=== PATIENT | male | born 1955 | race Caucasian/White ===

== ENCOUNTER 2016-08-29 15:31 | Inpatient (IN) | payer MEDICARE, OTHER ==
[~2016-08-29] VITALS: Ht 165.1 cm; Wt 126.0 kg
[~2016-08-29 15:31] MED LIST: ASPI81TA11 PO; CALC0.25 PO; DESO0.0560 TOP; ED B10TA OR; FENO160T2 OR; HYDRA25 PO; HYDRO.5%T TOP; LIPI20TA PO; METO50CR PO; MULT-65 PO; NIAC500 OR; OMEP20TA39 PO; OXYC5 PO; PERI8.6T PO; SIME80CH OR; VITA100017 PO; VITA10002 PO; [UNRECOGNIZED DRUG - CODE] OR
[2016-08-29] MEDS ORDERED: SODIUM CHLOR 0.9% 1000 ML INJ 1,000 ML IV SCH ×2 (15:34→19:45)
[2016-08-29 15:35] VITALS: BP 165/76; PULSE 52; RESP 18; TEMP 97.8; O2SAT 96
--- NOTE | 2016-08-29 15:37 | PD ---
HPI Chief Complaint: abdominal pain Time Seen by Provider: 15:37 Travel History International Travel<30 days: No Contact w/Intl Traveler<30days: No Traveled to known affect area: No History of Present Illness HPI 60-year-old male with history of spina bifida, CAD, CABG 2, hypertension, chronic kidney disease, multiple abdominal surgeries with colostomy placement as well as nephrectomy with urinary pouch, right foot amputation, presents to emergency department today for evaluation of decreased output in his colostomy. Patient states in the past he has had similar symptoms and was found to have a small bowel obstruction. Patient states his last bowel movement was yesterday with a very small amount. He has also developed significant abdominal pain. Denies any fever or chills. No chest or tightness. No difficulty breathing. Mild nausea without vomiting. He has no other symptoms to report at this time. PFSH Past Medical History Anemia: Yes Arthritis: Yes Autoimmune Disease: No Cancer: No Cardiac Catheterization: Yes Cardiovascular Problems: Yes High Cholesterol: Yes Chest Pain: Yes Coronary Artery Disease: Yes Diabetes: No Endocrine: No Gastrointestinal Disorders: Yes Genitourinary: Yes ([place] POUCH) Hypertension: Yes Immune Disorder: No Implanted Vascular Access Dvce: Yes Musculoskeletal: Yes (PARAPALEGIC) Neurologic: Yes (PARAPALEGIC) Psychiatric: No Reproductive: No Respiratory: No Renal Failure: Yes (CRI) Thyroid Disease: No Past Surgical History Abdominal Surgery: Yes ([place] POUCH) Appendectomy: Yes Body Medical Devices: VALERIE LEFT FEMUR, BAND AROUND PELVIS AND HIP Cardiac Surgery: Yes (CABG) Cholecystectomy: Yes Coronary Artery Bypass Graft: Yes (DOUBLE BYPASS 2000) Coronary Stent: Yes (1) Genitourinary Surgery: Yes (1991 URINARY DIVERSION, 1988 LEFT NEPHRECTOMY,) Joint Replacement: No Pacemaker: No Tonsillectomy: Yes Other Surgery: Yes (C5-C6 FUSION, C7 DISCECTOMY 10/27/12) Social History Alcohol Use: No Tobacco Use: No Substance Use: No Allergies-Medications (Allergen,Severity, Reaction): Coded Allergies: Compazine (Verified Allergy, Severe, MUSCLE CONTRACTURES, 08/29/16) Contrast Media (Verified Allergy, Severe, Anaphylaxis, 08/29/16) Thorazine (Verified Allergy, Severe, MUSCLE CONTRACTURES, 08/29/16) Reported Meds & Prescriptions Reported Meds & Active Scripts Active Reported Ascorbic Acid 500 Mg Tab 1,000 Mg PO DAILY Aspirin EC (Aspirin) 81 Mg Tabdr 81 Mg PO DAILY Baclofen 10 Mg Tab 10 Mg PO TID Calcitriol 0.25 Mcg Cap 0.25 Mcg PO DAILY Vitamin B-12 (Cyanocobalamin) 1,000 Mcg Tab 1,000 Mcg PO DAILY Hydrocortisone Topical (Hydrocortisone) 0.5% Cream 1 Applic TOPICAL DAILY Apply to face Hydralazine (Hydralazine HCl) 100 Mg Tab 100 Mg PO TID Take with meals Toprol XL (Metoprolol Succinate) 25 Mg Tab 25 Mg PO DAILY Multiple Vitamin 1 Tab 1 Tab PO DAILY Docusate Sodium 100 Mg Cap 100 Mg PO BID PRN Ferrous Sulfate DR (Ferrous Sulfate) 325 Mg Tabdr 325 Mg PO TID Amlodipine (Amlodipine Besylate) 5 Mg Tab 5 Mg PO DAILY Oxycodone (Oxycodone HCl) 20 Mg Tab 20 Mg PO Q4HR PRN Desonide Topical (Desonide) 0.05% Cream 1 Applic TOPICAL HS Review of Systems Except as stated in HPI: all other systems reviewed are Neg Physical Exam Narrative GENERAL: Poorly kempt obese male patient, sitting in bed, in no acute distress. SKIN: Focused skin assessment warm/dry. At this time I'm unable to roll the patient over due to abdominal pain to assess backside of skin. Multiple surgical scars on the abdomen. HEAD: Atraumatic. Normocephalic. EYES: Pupils equal and round. No scleral icterus. No injection or drainage. ENT: No nasal bleeding or discharge. Mucous membranes pink and moist. NECK: Trachea midline. No JVD. CARDIOVASCULAR: Bradycardic rate and rhythm. No murmur appreciated. RESPIRATORY: No accessory muscle use. Diminished due to poor inspiratory effort and abdominal girth. Breath sounds equal bilaterally. GASTROINTESTINAL: Abdomen soft, rotund. Significant tenderness to the left of the umbilicus and left lower quadrant. Mild guarding.. MUSCULOSKELETAL: No obvious deformities. No clubbing. No cyanosis. No edema. Right foot amputation. NEUROLOGICAL: Awake and alert. No obvious cranial nerve deficits. Motor grossly within normal limits. Normal speech. Data Data Last Documented VS Vital Signs Date Time Temp Pulse Resp B/P Pulse Ox O2 Delivery O2 Flow Rate FiO2 08/29/16 15:40 18 08/29/16 15:38 97 Room Air 08/29/16 15:35 97.8 52 165/76 Orders Complete Blood Count With Diff (08/29/16 15:34) Comprehensive Metabolic Panel (08/29/16 15:34) Lipase (08/29/16 15:34) Prothrombin Time / Inr (Pt) (08/29/16 15:34) Act Partial Throm Time (Ptt) (08/29/16 15:34) Urinalysis - C+S If Indicated (08/29/16 15:34) Ct Abd/Pel W/O Iv Contrast (08/29/16 15:34) Iv Access Insert/Monitor (08/29/16 15:34) Ecg Monitoring (08/29/16 15:34) Oximetry (08/29/16 15:34) Ondansetron Inj (Zofran Inj) (08/29/16 15:45) Sodium Chlor 0.9% 1000 Ml Inj (Ns 1000 M (08/29/16 15:34) Sodium Chloride 0.9% Flush (Ns Flush) (08/29/16 15:45) Electrocardiogram (08/29/16 15:34) Abdomen, Upright Only (08/29/16 15:34) Morphine Inj (Morphine Inj) (08/29/16 16:45) Urine Culture (08/29/16 17:17) Hydromorphone Pf Inj (Dilaudid Pf Inj) (08/29/16 18:00) Ceftriaxone Inj (Rocephin Inj) (08/29/16 18:15) Metronidazole 500 Mg Inj (Flagyl 500 Mg (08/29/16 18:15) Sodium Chlor 0.9% 1000 Ml Inj (Ns 1000 M (08/29/16 18:15) Insert Ng Tube (08/29/16 18:15) Labs Laboratory Tests Test 08/29/16 08/29/16 16:08 17:17 White Blood Count 15.8 TH/MM3 Red Blood Count 5.31 MIL/MM3 Hemoglobin 12.9 GM/DL Hematocrit 42.5 % Mean Corpuscular Volume 80.1 FL Mean Corpuscular Hemoglobin 24.2 PG Mean Corpuscular Hemoglobin 30.2 % Concent Red Cell Distribution Width 19.2 % Platelet Count 253 TH/MM3 Mean Platelet Volume 7.9 FL Neutrophils (%) (Auto) 94.3 % Lymphocytes (%) (Auto) 1.5 % Monocytes (%) (Auto) 3.9 % Eosinophils (%) (Auto) 0.1 % Basophils (%) (Auto) 0.2 % Neutrophils # (Auto) 14.9 TH/MM3 Lymphocytes # (Auto) 0.2 TH/MM3 Monocytes # (Auto) 0.6 TH/MM3 Eosinophils # (Auto) 0.0 TH/MM3 Basophils # (Auto) 0.0 TH/MM3 CBC Comment DIFF FINAL Differential Comment Prothrombin Time 11.2 SEC Prothromb Time International 1.0 RATIO Ratio Activated Partial 29.5 SEC Thromboplast Time Sodium Level 143 MEQ/L Potassium Level 3.0 MEQ/L Chloride Level 115 MEQ/L Carbon Dioxide Level 16.2 MEQ/L Anion Gap 12 MEQ/L Blood Urea Nitrogen 60 MG/DL Creatinine 2.73 MG/DL Estimat Glomerular Filtration 24 ML/MIN Rate Random Glucose 189 MG/DL Calcium Level 8.1 MG/DL Total Bilirubin 0.2 MG/DL Aspartate Amino Transf 15 U/L (AST/SGOT) Alanine Aminotransferase 15 U/L (ALT/SGPT) Alkaline Phosphatase 168 U/L Total Protein 7.4 GM/DL Albumin 2.9 GM/DL Lipase 100 U/L Urine Color LIGHT-YELLOW Urine Turbidity HAZY Urine pH 8.0 Urine Specific [place] 1.009 Urine Protein 100 mg/dL Urine Glucose (UA) NEG mg/dL Urine Ketones NEG mg/dL Urine Occult Blood NEG Urine Nitrite NEG Urine Bilirubin NEG Urine Urobilinogen LESS THAN 2.0 MG/DL Urine Leukocyte Esterase LARGE Urine RBC 5 /hpf Urine WBC 20 /hpf Urine Squamous Epithelial <1 /hpf Cells Urine Amorphous Sediment FEW Urine Bacteria MOD /hpf Urine Mucus FEW /lpf Microscopic Urinalysis Comment CULTURE INDICATED MDM Medical Decision Making Medical Screen Exam Complete: Yes Emergency Medical Condition: Yes Medical Record Reviewed: Yes Differential Diagnosis Small bowel obstruction versus perforation versus constipation versus gastroenteritis versus sepsis Narrative Course 60-year-old male presents to emergency department for evaluation of abdominal pain and decreased output in his colostomy. Patient does have abdominal tenderness to palpation. CBC is with leukocytosis of 15.8 and a neutrophilia of 14.9. CMP is with mild hypokalemia 3.0. Creatinine has increased to 2.73 with a BUN of 60, GFR of 24. This is an acute change from patient's most recent lab work here which was in 2015. Urinalysis is hazy with 100 proteinuria , large leukocyte esterase, 5 RBC, 20 WBC, moderate bacteria, few mucus. Culture is indicated. X-ray imaging of the abdomen shows no evidence of free intra-peritoneal gas. CT imaging of the abdomen and pelvis shows evidence of small bowel obstruction with dilated loops of small bowel in the left abdomen with air-fluid levels. Ileostomy, neobladder, hydronephrosis of the right kidney have similar features to prior CT in 2015 however the distention of the neobladder is greater than prior. Induration of the soft tissues posterior to the anus just possible decubitus ulcer. There is a protrusion of bowel in the left lower quadrant suggesting the presence of the stoma or hernia however the patient has colostomy in the slice. I discussed the patient with my attending physician. Patient will be admitted for further evaluation and pain control. [address] Lane, general surgeon on-call. He request KUB in the morning and consult to gen surg with admission to medicine. [address] Parish, resident physician ammonia refrigeration technician. After it was confirmed the pt's PCP is Dr. Barker and not on any other provider's admission list, the pt will be admitted to the resident service Diagnosis Primary Impression: Small bowel obstruction Additional Impressions: Acute kidney injury Leukocytosis Qualified Code: D72.829 - Leukocytosis, unspecified type Decubitus ulcer Qualified Code: L89.159 - Decubitus ulcer of sacral region, unspecified ulcer stage Dehydration UTI (urinary tract infection) Qualified Code: N39.0 - Urinary tract infection without hematuria, site unspecified Admitting Information Admitting Physician Requests: Admit Condition: Stable Malou Doll Aug 29, 2016 15:37
[2016-08-29 15:38] VITALS: O2SAT 97
[2016-08-29] MEDS ORDERED: ONDANSETRON HCL 4 MG/2 ML VIAL IVP ONE (15:45)
[2016-08-29] MEDS ORDERED: MORPHINE SULFATE 4 MG/ML INJ IV PUSH ONE (16:45)
[2016-08-29 16:52] LABS: AUTOMATED NEUTROPHIL # 14.9 TH/MM3 (1.8-7.7); BASOPHIL % 0.2 % (0.0-2.0); EOSINOPHIL % 0.1 % (0.0-4.0); HEMATOCRIT 42.5 % (39.0-51.0); HEMO FLAGS DIFF FINAL; LYMPH % 1.5 % (9.0-44.0); LYMPHOCYTE # 0.2 TH/MM3 (1.0-4.8); MEAN CELL VOLUME 80.1 FL (80.0-100.0); MEAN CORPUSCULAR HEMOGLOBIN 24.2 PG (27.0-34.0); MEAN CORPUSCULAR HGB CONC 30.2 % (32.0-36.0); MONO % 3.9 % (0.0-8.0); NEUT % 94.3 % (16.0-70.0); PLATELET COUNT 253 TH/MM3 (150-450); RED BLOOD COUNT 5.31 MIL/MM3 (4.50-5.90); RED CELL DISTRIBUTION WIDTH 19.2 % (11.6-17.2); WHITE BLOOD COUNT 15.8 TH/MM3 (4.0-11.0)
--- NOTE | 2016-08-29 17:02 | RADRPT ---
EXAM DATE/TIME: 08/29/2016 16:12 [facility] COMPARISON: No previous studies available for comparison. INDICATIONS : Patient complains of abdominal pain and distention. MEDICAL HISTORY : None. SURGICAL HISTORY : None. ENCOUNTER: Initial ACUITY: 4 - 6 days PAIN SCORE: 10/10 LOCATION: Abdomen FINDINGS: A single erect view of the upper abdomen demonstrates no evidence of free intraperitoneal gas. The v isualized lower lungs are clear. Hemoclips are seen in the left midabdomen. CONCLUSION: No evidence of free intraperitoneal gas. Nikita Aguilar MD on August 29, 2016 at 16:59 Board Certified Radiologist. This report was verified electronically.
[2016-08-29 17:07] LABS: APTT (PATIENT) 29.5 SEC (24.3-30.1); PROTHROMBIN TIME - PATIENT 11.2 SEC (9.8-11.6)
[2016-08-29 17:22] LABS: ANION GAP 12 MEQ/L (5-15); AST (GOT) 15 U/L (15-37); BICARBONATE 16.2 MEQ/L (21.0-32.0); BLOOD UREA NITROGEN 60 MG/DL (7-18); CHLORIDE 115 MEQ/L (98-107); GLOMERULAR FILTRATION RATE 24 ML/MIN (>89); SODIUM (NA) 143 MEQ/L (136-145)
[2016-08-29 17:25] LABS: ALKALINE PHOSPHATASE 168 U/L (45-117); ALT (GPT) 15 U/L (12-78); TOTAL BILIRUBIN ADULT 0.2 MG/DL (0.2-1.0)
[2016-08-29 17:48] LABS: BACTERIA, URINE MOD /hpf; BLOOD, URINE NEG (NEG); COMMENT (UR) CULTURE INDICATED; CULTURE IF INDICATED CULTURE INDICATED; GLUCOSE,URINE NEG (NEG); KETONE, URINE NEG (NEG); MUCUS URINE FEW /lpf (OCC); NITRITE,URINE NEG (NEG); SQUAMOUS EPITHELIAL CELL URINE <1 /hpf (0-5); URINE COLOR LIGHT-YELLOW (YELLW/STRAW)
--- NOTE | 2016-08-29 17:49 | RADRPT ---
EXAM DATE/TIME: 08/29/2016 16:20 [facility] COMPARISON: CT ABDOMEN & PELVIS W/O CONTRAST, July 14, 2014, 12:01. INDICATIONS : Abdomen pain. ORAL CONTRAST: No oral contrast ingested. RADIATION DOSE: 33.34 CTDIvol (mGy) MEDICAL HISTORY : Cardiovascular disease. Hypertension. SURGICAL HISTORY : pelvic. femur ENCOUNTER: Initial ACUITY: 1 day PAIN SCALE: 9/10 LOCATION: Bilateral abdomen TECHNIQUE: Volumetric scanning of the abdomen and pelvis was performed. Using automated exposure control and ad justment of the mA and/or kV according to patient size, radiation dose was kept as low as reasonably achievable to obtain optimal diagnostic quality images. FINDINGS: Left nephrectomy. 1.8 cm low density nodule in the medial limb of the left adrenal gland is similar to prior. There is moderate hydronephrosis of the right kidney which is similar in severity to 2015. Cortical cyst is also stable. There is a new 3 mm parenchymal calcification in the midpole the rig ht kidney. No calcifications seen in the collecting system. There is an ileostomy with neobladder i n the right lower quadrant. The neobladder measures up to 12 cm in width. The liver, spleen, and pancreas are unremarkable for noncontrast technique. The abdominal aorta is n ormal diameter. There are multiple abnormal dilated loops of small bowel in the left mid abdomen which measure up to 5.3 cm in dimension and many of the loops contain air fluid levels. In the left lower quadrant anter ior abdominal wall there appears to be either a stoma or spigelian hernia with loops of bowel extendi ng into. The skin adjacent to the protruding loops of bowel is irregular. There is hyperdense mater ial within the sigmoid colon lumen. Anastomosis sutures seen in the upper abdomen. No evidence of f ree fluid in the pelvis. Cystectomy. Bifemoral graft. Multiple inguinal lymph nodes have similar features to prior CT. CONCLUSION: 1. Evidence of small bowel obstruction with dilated loops of small bowel in the left abdomen with air -fluid levels. 2. Ileostomy, neobladder, and hydronephrosis the right kidney have similar features to prior CT in 2015; however, the distention of the neobladder is greater than prior. 3. Induration of the soft tissues posterior to the anus suggests possible decubitus ulcer. 4. There is protrusion of bowel in the left lower quadrant suggesting the presence of a stoma or a h ealing hernia. Please correlate with clinical exam. Nikita Aguilar MD on August 29, 2016 at 17:36 Board Certified Radiologist. This report was verified electronically.
[2016-08-29] MEDS ORDERED: HYDROmorphone HCL PF 1 MG/ML VIAL IV PUSH ONE (18:00)
[2016-08-29] MEDS ORDERED: DESO0.0560 TOPICAL (18:01)
[2016-08-29] MEDS ORDERED: FERR325T2 PO (18:04)
[2016-08-29] MEDS ORDERED: OXYC-396 PO (18:04)
[2016-08-29] MEDS ORDERED: AMLO5TAB2 PO (18:04)
[2016-08-29] MEDS ORDERED: DOCU100C PO (18:08)
[2016-08-29] MEDS ORDERED: MULTTAB67 PO (18:08)
[2016-08-29] MEDS ORDERED: HYDRO.5%T TOPICAL (18:08)
[2016-08-29] MEDS ORDERED: HYDR-3801 PO (18:08)
[2016-08-29] MEDS ORDERED: TOPR25TA PO (18:08)
[2016-08-29] MEDS ORDERED: ASCO500T PO (18:11)
[2016-08-29] MEDS ORDERED: BACL10TA PO (18:11)
[2016-08-29] MEDS ORDERED: CALC0.25 PO (18:11)
[2016-08-29] MEDS ORDERED: VITA10002 PO (18:11)
[2016-08-29] MEDS ORDERED: ASPI81TA11 PO (18:11)
[2016-08-29] MEDS ORDERED: cefTRIAXone INJ 1,000 MG in SODIUM CHLORIDE 0.9% INJ 100 ML IV ONE (18:15)
[2016-08-29] MEDS ORDERED: metroNIDAZOLE 500 MG INJ 100 ML IV ONE (18:15)
[2016-08-29] MEDS ORDERED: SODIUM CHLOR 0.9% 1000 ML INJ 1,000 ML IV ONE (18:15)
--- NOTE | 2016-08-29 18:55 | HHI.HP ---
[facility] Service Family Medicine Primary Care Physician Non-Staff Admission Diagnosis Small bowel obstruction; leukocytosis; UTI Diagnoses: International Travel<30 Days: No Contact w/Intl Traveler<30days: No Known Affected Area: No History of Present Illness Patient is a 60-year-old male with a past medical history of HTN, CAD s/p CABG 2, spina bifida, multiple abdominal surgeries with colostomy placement , left nephrectomy with urinary diversion pouch, right foot amputation, and L1- L2 paraplegia that presents to the [facility] with a chief complaint of abdominal pain and decreased stool output from his colostomy bag. Patient states that this abdominal pain began yesterday in the evening. He describes the pain as sharp, constant nonradiating, 8/10 pain located in his left lower quadrant. Patient states that he had been having normal bowel movements which normally occur about 6 hours after he eats. His last normal bowel movement was yesterday morning. Last night he ate a strawberry smoothie which he vomited this morning. He states that the pain and decreased stool output is very similar to when he had a small bowel obstruction in 2014. He was admitted at the [facility] at that time. Patient denies other symptoms, no fever or chills, no shortness of breath or chest pain. PCP is Dr. Susan Barker in [place]. Review of Systems Constitutional: DENIES: Fever, Chills Eyes: DENIES: Blurred vision, Eye pain, Vision loss Ears, nose, mouth, throat: DENIES: Throat pain, Running Nose, Sinus Pain Respiratory: DENIES: Cough, Shortness of breath Cardiovascular: DENIES: Chest pain, Palpitations Gastrointestinal: COMPLAINS OF: Abdominal pain, Constipation, Nausea, Vomiting , DENIES: Bloody stools Genitourinary: DENIES: Urinary frequency, Urinary incontinence (has a [place] Pouch for urinary diversion) Integumentary: DENIES: Pruritus, Rash Hematologic/lymphatic: DENIES: Bruising Neurologic: COMPLAINS OF: Headache, DENIES: Paresthesias Past Family Social History Past Medical History HTN CAD s/p CABG 2 Spina bifida L1-L2 paraplegia Past Surgical History Multiple abdominal surgeries with colostomy placement Ivan left femur, band around pelvis and hip Double bypass 2000 1991 urinary diversion, 1988 left nephrectomy C5-C6 fusion, C7 discectomy 10/27/12 Cholecystectomy Appendectomy Skin flaps for sacral decubitus ulcers in 2014 Right foot amputation Patient has had 125 surgeries in his lifetime Reported Medications Reported Meds & Active Scripts Active Reported Ascorbic Acid 500 Mg Tab 1,000 Mg PO DAILY Aspirin EC (Aspirin) 81 Mg Tabdr 81 Mg PO DAILY Baclofen 10 Mg Tab 10 Mg PO TID Calcitriol 0.25 Mcg Cap 0.25 Mcg PO DAILY Vitamin B-12 (Cyanocobalamin) 1,000 Mcg Tab 1,000 Mcg PO DAILY Hydrocortisone Topical (Hydrocortisone) 0.5% Cream 1 Applic TOPICAL DAILY Apply to face Hydralazine (Hydralazine HCl) 100 Mg Tab 100 Mg PO TID Take with meals Toprol XL (Metoprolol Succinate) 25 Mg Tab 25 Mg PO DAILY Multiple Vitamin 1 Tab 1 Tab PO DAILY Docusate Sodium 100 Mg Cap 100 Mg PO BID PRN Ferrous Sulfate DR (Ferrous Sulfate) 325 Mg Tabdr 325 Mg PO TID Amlodipine (Amlodipine Besylate) 5 Mg Tab 5 Mg PO DAILY Oxycodone (Oxycodone HCl) 20 Mg Tab 20 Mg PO Q4HR PRN Desonide Topical (Desonide) 0.05% Cream 1 Applic TOPICAL HS Allergies: Coded Allergies: Compazine (Verified Allergy, Severe, MUSCLE CONTRACTURES, 08/29/16) Contrast Media (Verified Allergy, Severe, Anaphylaxis, 08/29/16) Thorazine (Verified Allergy, Severe, MUSCLE CONTRACTURES, 08/29/16) Family History Noncontributory Social History Patient denies alcohol, tobacco, or illegal drug use Lives alone in [place], no pets Physical Exam Vital Signs Vital Signs Date Time Temp Pulse Resp B/P Pulse Ox O2 Delivery O2 Flow Rate FiO2 08/29/16 15:40 18 08/29/16 15:38 97 Room Air 08/29/16 15:35 97.8 52 18 165/76 96 Physical Exam GENERAL: This is an obese patient, in no acute respiratory distress but appears very uncomfortable and occasionally grimaces with pain. SKIN: Seborrheic dermatitis on frontal scalp. Cool and dry. Chronic venous stasis changes most notable on RLE. 1 cm healing ulcer on right lateral thigh. Malodorous nonhealing left heel ulcer. No sacral ulcers identified HEAD: Atraumatic. Normocephalic. No temporal or scalp tenderness. EYES: Pupils equal round and reactive. Extraocular motions intact. No scleral icterus. No injection or drainage. ENT: Nose without bleeding, purulent drainage or septal hematoma. Throat without erythema, tonsillar hypertrophy or exudate. Moist mucous membranes. Uvula midline. Airway patent. NECK: Trachea midline. No JVD or lymphadenopathy. Supple, nontender, no meningeal signs. CARDIOVASCULAR: Bradycardic rate and rhythm without murmurs, gallops, or rubs. RESPIRATORY: No increased work of breathing. Breath sounds equal bilaterally. Scattered inspiratory wheezes, rales, or rhonchi. GASTROINTESTINAL: Abdomen soft, tender to mild palpation in the left lower quadrant. Absent to very hypoactive bowel sounds. Colostomy bag in place. No redness of skin around colostomy bag. About 3 hard stools identified inside colostomy bag. Nondistended. No hepato-splenomegaly, or palpable masses. No guarding. MUSCULOSKELETAL: No movement or sensation in bilateral lower extremities. Right BKA. 2+ dorsalis pedis pulse on left lower extremity. Left fifth toe amputation. NEUROLOGICAL: Awake and alert. Cranial nerves II through XII intact. Five out of 5 muscle strength in lateral upper extremities. Normal speech. Laboratory Laboratory Tests Test 08/29/16 08/29/16 16:08 17:17 White Blood Count 15.8 Red Blood Count 5.31 Hemoglobin 12.9 Hematocrit 42.5 Mean Corpuscular Volume 80.1 Mean Corpuscular Hemoglobin 24.2 Mean Corpuscular Hemoglobin 30.2 Concent Red Cell Distribution Width 19.2 Platelet Count 253 Mean Platelet Volume 7.9 Neutrophils (%) (Auto) 94.3 Lymphocytes (%) (Auto) 1.5 Monocytes (%) (Auto) 3.9 Eosinophils (%) (Auto) 0.1 Basophils (%) (Auto) 0.2 Neutrophils # (Auto) 14.9 Lymphocytes # (Auto) 0.2 Monocytes # (Auto) 0.6 Eosinophils # (Auto) 0.0 Basophils # (Auto) 0.0 CBC Comment DIFF FINAL Differential Comment Prothrombin Time 11.2 Prothromb Time International 1.0 Ratio Activated Partial 29.5 Thromboplast Time Sodium Level 143 Potassium Level 3.0 Chloride Level 115 Carbon Dioxide Level 16.2 Anion Gap 12 Blood Urea Nitrogen 60 Creatinine 2.73 Estimat Glomerular Filtration 24 Rate Random Glucose 189 Calcium Level 8.1 Total Bilirubin 0.2 Aspartate Amino Transf 15 (AST/SGOT) Alanine Aminotransferase 15 (ALT/SGPT) Alkaline Phosphatase 168 Total Protein 7.4 Albumin 2.9 Lipase 100 Urine Color LIGHT-YELLOW Urine Turbidity HAZY Urine pH 8.0 Urine Specific [place] 1.009 Urine Protein 100 Urine Glucose (UA) NEG Urine Ketones NEG Urine Occult Blood NEG Urine Nitrite NEG Urine Bilirubin NEG Urine Urobilinogen LESS THAN 2.0 Urine Leukocyte Esterase LARGE Urine RBC 5 Urine WBC 20 Urine Squamous Epithelial <1 Cells Urine Amorphous Sediment FEW Urine Bacteria MOD Urine Mucus FEW Microscopic Urinalysis Comment CULTURE INDICATED Date/Time Procedure Status Source Growth 08/29/16 17:17 Urine Culture Received Urine Clean Catch Pending Result Diagram: 08/29/16 1608 08/29/16 1608 Imaging Last Impressions Abdomen/Pelvis CT 08/29/16 1534 Signed Impressions: Service Date/Time: Monday, August 29, 2016 16:20 - CONCLUSION: 1. Evidence of small bowel obstruction with dilated loops of small bowel in the left abdomen with air-fluid levels. 2. Ileostomy, neobladder, and hydronephrosis the right kidney have similar features to prior CT in 2014; however, the distention of the neobladder is greater than prior. 3. Induration of the soft tissues posterior to the anus suggests possible decubitus ulcer. 4. There is protrusion of bowel in the left lower quadrant suggesting the presence of a stoma or a healing hernia. Please correlate with clinical exam. Nikita Aguilar MD Abdomen X-Ray 08/29/161533 Signed Impressions: Service Date/Time: Monday, August 29, 2016 16:12 - CONCLUSION: No evidence of free intraperitoneal gas. Nikita Aguilar MD Assessment and Plan Assessment and Plan 60-year-old male with a past medical history of HTN, CAD s/p CABG 2, spina bifida, multiple abdominal surgeries with colostomy placement, left nephrectomy with urinary diversion pouch, right foot amputation, and L1-L2 paraplegia presents with 1 day history of abdominal pain, nausea and vomiting that is concerning for small bowel obstruction confirmed on CT of abdomen and pelvis. There is also suspicion for a urinary tract infection based on findings on urinalysis and CT which showed distention of the neobladder that is greater than prior CT in 2014 with the patient will be admitted for management of small bowel obstruction and IV antibiotics for possible UTI. Code Status Full code Discussed Condition With Discussed with Dr. De La Rosa. Will discuss with Dr. Ac Problem List: (1) Small bowel obstruction Status: Acute Plan: -Evidence of SBO with dilated loops of small bowel in the left abdomen with air-fluid levels on CT abdomen and pelvis -Gen. surgery consulted -Nothing by mouth -NG tube in place -KUB in the a.m. -Received one dose of Flagyl 500 mg IV in the ED - will hold off on IV antibiotics for now -Normal saline at 175 mL hour with 40 of K -Morphine 4 mg IV every 4 hours pain 1 through 10 -Dilaudid 1 mg IV every 4 hours when necessary breakthrough pain -Zofran 4mg IV every 6 hours when necessary nausea -Tylenol suppository 650 mg rectal every 4 hours when necessary fever (2) Dehydration Status: Acute Plan: -Patient reports decrease stool outputs with vomiting in the a.m. -Potassium decreased to 3.0 -Received 1 L normal saline bolus in the ED -Continue 1-1/2 maintenance fluids as above -We will monitor and replace electrolytes as needed (3) Acute on chronic kidney failure Status: Acute Plan: -Creatinine 2.73 in the ED -Baseline creatinine 1.84 in June 2014 -Appears to be ACUTE on chronic CKD stage III with GFR of 24 -Fluids as above -We will monitor and consider nephrology consult if does not improve (4) UTI (urinary tract infection) Status: Acute Plan: -UA significant for large leukocyte esterase, 5 RBC, 20 WBC, moderate bacteria -Leukocytosis to 15.8 -Possible colonization due to bladder pouch and and urinary catheter use -Patient received one dose of Rocephin 1 g IV in the ED -We will continue Rocephin 1 g IV during admission -Urine culture pending - we'll adjust antibiotic regimen as needed (5) Decubitus ulcer Status: Chronic Plan: -Presence of decubitus ulcer on right lateral thigh and left heel -Wound care consulted for management - appreciate recommendations (6) Chronic Medical Problems Status: Acute Plan: Hypertension: Holding amlodipine 5 mg by mouth daily and hydralazine 100 mg by mouth 3 times a day CAD: Holding aspirin 81 mg by mouth daily Chronic pain: Holding oxycodone 20 mg by mouth every 4 hours when necessary, morphine and Dilaudid when necessary as above Muscle spasms: Holding baclofen 10 mg by mouth 3 times a day Anemia: Holding ferrous sulfate PO (7) FEN/DVT PPX/GI PPX/Nursing Orders Status: Acute Plan: Fluids: NS @ 175 mls/hr IV +40K Electrolytes: Will monitor and replace as needed Nutrition: NPO DVT Prophylaxis: Heparin subcutaneous Q8h GI Prophylaxis: Protonix 40mg IV daily -Vitals Q4h -Monitor I's and O's -Activity bed rest Disposition: Pending resolution of SBO, possibly the next 2-3 days Physician Certification 2 Midnight Certification Type: Admission for Inpatient Services Order for Inpatient Services The services are ordered in accordance with Medicare regulations or non- Medicare payer requirements, as applicable. In the case of services not specified as inpatient-only, they are appropriately provided as inpatient services in accordance with the 2-midnight benchmark. Estimated LOS (days): 3 days is the estimated time the patient will need to remain in the hospital, assuming treatment plan goals are met and no additional complications. Post-Hospital Plan: Home Problem Qualifiers (1) UTI (urinary tract infection): Qualified Code: N39.0 - Urinary tract infection without hematuria, site unspecified (2) Decubitus ulcer: Qualified Code: L89.159 - Decubitus ulcer of sacral region, unspecified ulcer stage Eko,Stephani Vickers MD R1 Aug 29, 2016 18:55
[2016-08-29] MEDS ORDERED: ACETAMINOPHEN 650 MG SUPP RECTAL PRN (19:30)
[2016-08-29] MEDS ORDERED: MORPHINE SULFATE 4 MG/ML INJ IV PRN (19:30)
[2016-08-29 20:14] VITALS: BP 160/70; PULSE 5; PULSE 55; RESP 16; O2SAT 99
[2016-08-29] MEDS: NS + KCL 40 MEQ INJ 1,000 ML IV SCH (20:25)
[2016-08-29] MEDS: HEPARIN SODIUM - SQ 10,000 UNITS/ML VIAL SQ SCH (20:25)
[2016-08-29] MEDS: HYDROmorphone HCL PF 1 MG/ML VIAL IV PRN (20:26)
[2016-08-29 20:58] LABS: MAGNESIUM 2.3 MG/DL (1.5-2.5)
[2016-08-29] MEDS: FLUOCINOLONE ACETONIDE 0.01% CR 15 GM TUBE TOPICAL SCH (21:00)
[2016-08-29 21:06] VITALS: BP 158/66; PULSE 57; RESP 14; O2SAT 100
[2016-08-29] MEDS ORDERED: RESP: ALBUTEROL 2.5 MG/3 ML NEB (PRN) NEB (21:15)
[2016-08-29] MEDS: MORPHINE SULFATE 4 MG/ML INJ IV PRN (22:20)
[2016-08-29 22:30] VITALS: BP 176/84; PULSE 60; RESP 20; TEMP 97.7; O2SAT 96
[2016-08-29 22:30] LABS: LACTIC ACID GHOST NOT REPORTABLE
[2016-08-29] MEDS: ONDANSETRON HCL 4 MG/2 ML VIAL IV PRN (22:31)
[2016-08-30] MEDS: HYDROmorphone HCL PF 1 MG/ML VIAL IV PRN ×3 (00:42→10:42)
[2016-08-30] MEDS: MORPHINE SULFATE 4 MG/ML INJ IV PRN ×4 (02:54→18:42)
[2016-08-30 03:21] LABS: AUTOMATED NEUTROPHIL # 16.4 TH/MM3 (1.8-7.7); BASOPHIL % 0.1 % (0.0-2.0); EOSINOPHIL % 0.1 % (0.0-4.0); HEMATOCRIT 39.8 % (39.0-51.0); LYMPH % 2.2 % (9.0-44.0); LYMPHOCYTE # 0.4 TH/MM3 (1.0-4.8); MEAN CELL VOLUME 78.4 FL (80.0-100.0); MEAN CORPUSCULAR HEMOGLOBIN 24.8 PG (27.0-34.0); MEAN CORPUSCULAR HGB CONC 31.6 % (32.0-36.0); MONO % 4.7 % (0.0-8.0); NEUT % 92.9 % (16.0-70.0); PLATELET COUNT 268 TH/MM3 (150-450); RED BLOOD COUNT 5.08 MIL/MM3 (4.50-5.90); RED CELL DISTRIBUTION WIDTH 18.7 % (11.6-17.2); WHITE BLOOD COUNT 17.7 TH/MM3 (4.0-11.0)
[2016-08-30 03:23] LABS: HEMO FLAGS AUTO DIFF
[2016-08-30 03:51] LABS: BANDS 28 % (0-6); NEUTROPHIL # MANUAL DIFF 16.3 TH/MM3 (1.8-7.7); POLYS (SEG NEUTROPHILS) 64 % (16-70); WBC DIFF SAMPLE 100
[2016-08-30 03:53] LABS: PLATELET ESTIMATE SMEAR NORMAL (NORMAL); PLATELET MORPHOLOGY NORMAL (NORMAL); SCAN/DIFF FINAL DIFF MANUAL
[2016-08-30 04:08] LABS: BICARBONATE 17.9 MEQ/L (21.0-32.0)
[2016-08-30] MEDS: NS + KCL 40 MEQ INJ 1,000 ML IV SCH ×2 (05:09→07:56)
[2016-08-30] MEDS: HEPARIN SODIUM - SQ 10,000 UNITS/ML VIAL SQ SCH ×3 (05:10→21:31)
--- NOTE | 2016-08-30 05:44 | RADRPT ---
EXAM DATE/TIME: 08/30/2016 05:06 [facility] COMPARISON: CT ABDOMEN & PELVIS W/O CONTRAST, August 29, 2016, 16:20. ABDOMEN UPRIGHT ONLY, August 29, 2016, 16:12. INDICATIONS : Evaluate for obstruction. MEDICAL HISTORY : Cardiovascular disease. Hypertension SURGICAL HISTORY : colostomy, pelvic, femur ENCOUNTER: Subsequent ACUITY: 2 days PAIN SCORE: 7/10 LOCATION: Bilateral abdomen FINDINGS: There are a few loops of small bowel slightly prominent on the left side. Maximum diameter measures a lmost 4.4 cm. No definite free air is identified for technique. NG tube is present with tip in the st omach. CONCLUSION: Slightly prominent loops of small bowel on the left side without evidence for free intraperitoneal ai r somewhat nonspecific for technique, however partial small bowel obstruction is not excluded. Deborah Dean MD on August 30, 2016 at 5:40 Board Certified Radiologist. This report was verified electronically.
[2016-08-30] MEDS: ONDANSETRON HCL 4 MG/2 ML VIAL IV PRN ×3 (05:46→18:41)
[2016-08-30 07:44] VITALS: BP 151/71; PULSE 67; RESP 18; TEMP 96.9; O2SAT 95
[2016-08-30] MEDS: PANTOPRAZOLE SODIUM 40 MG VIAL IVP SCH (07:56)
[2016-08-30] MEDS: HYDROCORTISONE 0.5% CREAM 30 GM TOPICAL SCH (07:58)
[2016-08-30 09:56] LABS: HEMOGLOBIN A1a 1.4 %; HEMOGLOBIN A1b 2.2 %; HEMOGLOBIN Ao 82.2 %; HEMOGLOBIN LA1C 3.7 %; HEMOGLOBIN P3 6.4 %
[2016-08-30] MEDS: SODIUM CHLOR 0.9% 1000 ML INJ 1,000 ML IV SCH ×3 (11:36→21:32)
--- NOTE | 2016-08-30 11:37 | HHI.FPPN ---
Subjective Remarks Patient was sitting up in bed, still appeared uncomfortable. Pain is now 7-10, he states it mildly improved compared to yesterday. He feels very thirsty and would like something to drink. He is okay with not eating yet. Patient in agreement with keeping the NG tube in for possibly 1 more day (Stephani Parish MD R1) Objective Vitals Vital Signs Date Time Temp Pulse Resp B/P Pulse Ox O2 Delivery O2 Flow Rate FiO2 08/30/16 07:44 96.9 67 18 151/71 95 08/29/16 22:30 97.7 60 20 176/84 96 08/29/16 21:06 57 14 158/66 100 Room Air 08/29/16 20:14 55 16 160/70 99 Room Air 08/29/16 15:40 18 08/29/16 15:38 97 Room Air 08/29/16 15:35 97.8 52 18 165/76 96 I/O 08/29/16 08/29/16 08/29/16 08/30/16 08/30/16 08/30/16 07:00 15:00 23:00 07:00 15:00 23:00 Intake Total 500 ml 1200 ml 0 ml Output Total 1225 ml 2450 ml Balance -725 ml -1250 ml 0 ml Intake Oral 0 ml 0 ml 0 ml IV Total 500 ml 1200 ml Output Urine Total 1225 ml 1650 ml Gastric Drainage Total 800 ml # Bowel Movements 0 0 (Stephani Parish MD R1) Result Diagram: 08/30/16 0259 08/30/16 0259 Imaging Last Impressions Abdomen X-Ray 08/30/16 0600 Signed Impressions: Service Date/Time: Tuesday, August 30, 2016 05:06 - CONCLUSION: Slightly prominent loops of small bowel on the left side without evidence for free intraperitoneal air somewhat nonspecific for technique, however partial small bowel obstruction is not excluded. Deborah Dean MD Abdomen/Pelvis CT 08/29/16 1534 Signed Impressions: Service Date/Time: Monday, August 29, 2016 16:20 - CONCLUSION: 1. Evidence of small bowel obstruction with dilated loops of small bowel in the left abdomen with air-fluid levels. 2. Ileostomy, neobladder, and hydronephrosis the right kidney have similar features to prior CT in 2014; however, the distention of the neobladder is greater than prior. 3. Induration of the soft tissues posterior to the anus suggests possible decubitus ulcer. 4. There is protrusion of bowel in the left lower quadrant suggesting the presence of a stoma or a healing hernia. Please correlate with clinical exam. Nikita Aguilar MD Objective Remarks GENERAL: This is an obese patient, in no acute respiratory distress but appears very uncomfortable and occasionally grimaces with pain. SKIN: Seborrheic dermatitis on frontal scalp. Cool and dry. Chronic venous stasis changes most notable on RLE. 1 cm healing ulcer on right lateral thigh. Malodorous nonhealing left heel ulcer. HEAD: Atraumatic. Normocephalic. No temporal or scalp tenderness. EYES: Pupils equal round and reactive. Extraocular motions intact. No scleral icterus. No injection or drainage. ENT: Nose without bleeding, purulent drainage or septal hematoma. Throat without erythema, tonsillar hypertrophy or exudate. Moist mucous membranes. Uvula midline. Airway patent. NECK: Trachea midline. No JVD or lymphadenopathy. Supple, nontender, no meningeal signs. CARDIOVASCULAR: Bradycardic rate and rhythm without murmurs, gallops, or rubs. RESPIRATORY: No increased work of breathing. Breath sounds equal bilaterally. Scattered inspiratory wheezes, rales, or rhonchi. GASTROINTESTINAL: Abdomen soft, tender to mild palpation in the left lower quadrant. Bowel sounds improved from previous day but still hypoactive. Colostomy bag in place. No redness of skin around colostomy bag. Nondistended. No hepato-splenomegaly, or palpable masses. No guarding. MUSCULOSKELETAL: No movement or sensation in bilateral lower extremities. Right BKA. Left fifth toe amputation. NEUROLOGICAL: Awake and alert. Cranial nerves II through XII intact. Five out of 5 muscle strength in lateral upper extremities. Normal speech. (Eko,Stephani U R1) A/P Assessment and Plan 60-year-old male with a past medical history of HTN, CAD s/p CABG 2, spina bifida, multiple abdominal surgeries with colostomy placement, left nephrectomy with urinary diversion pouch, right foot amputation, and L1-L2 paraplegia presented with 1 day history of abdominal pain, nausea and vomiting that is concerning for small bowel obstruction confirmed on CT of abdomen and pelvis. The patient was admitted for management of small bowel obstruction. He received 1 dose of Rocephin IV for a possible UTI which was discontinued based on urine culture growing mixed cindy. Discharge Planning Pending improvement of small bowel obstruction, possibly in the next 2-3 days ( Stephani Parish MD R1) Attending Attestation Patient seen and examined. Case reviewed and discussed with the resident team. Agree with plan of care as discussed with me and documented in the resident note. (Tami Ac MD) Problem List: (1) Small bowel obstruction Status: Acute Plan: -Evidence of SBO with dilated loops of small bowel in the left abdomen with air-fluid levels on CT abdomen and pelvis -Gen. surgery consulted - appreciate recommendations -Nothing by mouth except ice chips and certain medications -NG tube in place - drained 800 mL on 08/29 and 550 mL at time of exam today 08/30 -KUB shows slightly prominent loops of small bowel in the left side without evidence for free intraperitoneal air -Normal saline at 150 mL hour -Morphine 4 mg IV every 4 hours pain 1 through 10 -Dilaudid 1 mg IV every 4 hours when necessary breakthrough pain -Added oxycodone 20 mg by mouth every 4 hours as needed for pain -Zofran 4mg IV every 6 hours when necessary nausea -Tylenol suppository 650 mg rectal every 4 hours when necessary fever (2) Dehydration Status: Acute Plan: -Potassium improved to 4.0 compared to 3.0 yesterday -Continue maintenance fluids without potassium as above -Continue to monitor and replace electrolytes as needed (3) Acute on chronic kidney failure Status: Acute Plan: -Creatinine 2.73 in the ED, improved to 2.30 today -Baseline creatinine 1.84 in June 2014 -Appears to be acute on chronic CKD stage III with GFR of 29 -Fluids as above -We will monitor and consider nephrology consult if does not improve (4) UTI (urinary tract infection) Status: Acute Plan: -UA significant for large leukocyte esterase, 5 RBC, 20 WBC, moderate bacteria -Leukocytosis to increase to 17.7 compared to 15.8 yesterday - suspect related to his SBO, no signs of peritonitis on exam -We will reevaluate patient's clinical status in the a.m. and consider Flagyl as needed -Most likely colonization due to bladder pouch and and urinary catheter use -Patient received one dose of Rocephin 1 g IV in the ED -Urine culture shows 50-100,000 CFU per mL and final report - will discontinue Rocephin IV (5) Decubitus ulcer Status: Chronic Plan: -Presence of decubitus ulcer on right lateral thigh and left heel -Wound care consulted for management - appreciate recommendations (6) Chronic Medical Problems Status: Acute Plan: Hypertension: Holding amlodipine 5 mg by mouth daily and hydralazine 100 mg by mouth 3 times a day CAD: Holding aspirin 81 mg by mouth daily Chronic pain: Continue oxycodone 20 mg by mouth every 4 hours when necessary, morphine and Dilaudid when necessary as above Muscle spasms: Holding baclofen 10 mg by mouth 3 times a day Anemia: Holding ferrous sulfate PO (7) FEN/DVT PPX/GI PPX/Nursing Orders Status: Acute Plan: Fluids: NS @150 mL/hr Electrolytes: Will monitor and replace as needed Nutrition: NPO except certain medications and ice chips DVT Prophylaxis: Heparin subcutaneous Q8h GI Prophylaxis: Protonix 40mg IV daily -Vitals Q4h -Monitor I's and O's -Activity bed rest Case management consulted to assist with disposition needs (Stephani Parish MD R1) Problem Qualifiers (1) UTI (urinary tract infection): Qualified Code: N39.0 - Urinary tract infection without hematuria, site unspecified (2) Decubitus ulcer: Qualified Code: L89.159 - Decubitus ulcer of sacral region, unspecified ulcer stage Stephani Parish MD R1 Aug 30, 2016 11:37 Tami Ac MD Aug 30, 2016 15:21
[2016-08-30 12:00] VITALS: BP 166/77; PULSE 70; RESP 17; TEMP 96.9; O2SAT 95
--- NOTE | 2016-08-30 12:41 | HHI.FPPN ---
Subjective Remarks Patient seen and examined and discussed with the medicine team. This is a 60-year-old male with complicated history of spina bifida, hypertension, coronary artery disease with history of CABG 2, colostomy, nephrectomy, urinary diversion and L1-L2 paraplegia. He had small bowel obstruction in 2014, and is admitted with similar symptoms of left lower quadrant pain which is sharp, normally has a BM 6 hours after his meal but was stooling less, vomited times one on the day of admission but had no fever or chills. As noted, he's had a previous similar problem. His primary care physician is in [facility]. He has history of having had 125 surgical procedures including a skin flap for sacral decubitus, right BKA and currently notes that he has a ulcer left heel. He does not use tobacco, alcohol or marijuana. He is on multiple medications as in the record. Please see history and physical examination for this admission for additional past, family, social history and review of systems at the time of admission. This morning, he says his pain is down to 7/10 from 8/10 yesterday. He would like ice chips, and would like to keep his NG tube rather than having it removed and replaced. He still complains of tenderness in his abdomen, and while his lower extremities are not painful there is concern for his left heel ulcer which she has been caring for at home. He's not having any chest pain this morning. [place] feverish overnight but no elevated temperature was documented. Objective Vitals Vital Signs Date Time Temp Pulse Resp B/P Pulse Ox O2 Delivery O2 Flow Rate FiO2 08/30/16 07:44 96.9 67 18 151/71 95 08/29/16 22:30 97.7 60 20 176/84 96 08/29/16 21:06 57 14 158/66 100 Room Air 08/29/16 20:14 55 16 160/70 99 Room Air 08/29/16 15:40 18 08/29/16 15:38 97 Room Air 08/29/16 15:35 97.8 52 18 165/76 96 I/O 08/29/16 08/29/16 08/29/16 08/30/16 08/30/16 08/30/16 07:00 15:00 23:00 07:00 15:00 23:00 Intake Total 500 ml 1200 ml 0 ml Output Total 1225 ml 2450 ml Balance -725 ml -1250 ml 0 ml Intake Oral 0 ml 0 ml 0 ml IV Total 500 ml 1200 ml Output Urine Total 1225 ml 1650 ml Gastric Drainage Total 800 ml # Bowel Movements 0 0 Result Diagram: 08/30/16 0259 08/30/16 0259 Other Results Laboratory Tests Test 08/29/16 08/29/16 08/29/16 08/30/16 16:08 17:17 20:12 02:59 White Blood Count 15.8 TH/MM3 17.7 TH/MM3 Hemoglobin 12.9 GM/DL 12.6 GM/DL Mean Corpuscular Hemoglobin 24.2 PG 24.8 PG Mean Corpuscular Hemoglobin 30.2 % 31.6 % Concent Red Cell Distribution Width 19.2 % 18.7 % Neutrophils (%) (Auto) 94.3 % 92.9 % Lymphocytes (%) (Auto) 1.5 % 2.2 % Neutrophils # (Auto) 14.9 TH/MM3 16.4 TH/MM3 Lymphocytes # (Auto) 0.2 TH/MM3 0.4 TH/MM3 Potassium Level 3.0 MEQ/L Chloride Level 115 MEQ/L 122 MEQ/L Carbon Dioxide Level 16.2 MEQ/L 17.9 MEQ/L Blood Urea Nitrogen 60 MG/DL 51 MG/DL Creatinine 2.73 MG/DL 2.30 MG/DL Estimat Glomerular Filtration 24 ML/MIN 29 ML/MIN Rate Random Glucose 189 MG/DL 115 MG/DL Calcium Level 8.1 MG/DL 8.2 MG/DL Alkaline Phosphatase 168 U/L Albumin 2.9 GM/DL Urine Turbidity HAZY Urine Protein 100 mg/dL Urine Leukocyte Esterase LARGE Urine RBC 5 /hpf Urine WBC 20 /hpf Urine Bacteria MOD /hpf Urine Mucus FEW /lpf Lactic Acid Level 2.2 mmol/L Mean Corpuscular Volume 78.4 FL Band Neutrophils % 28 % Lymphocytes % 2 % Neutrophils # (Manual) 16.3 TH/MM3 Sodium Level 149 MEQ/L Microbiology Date/Time Procedure Status Source Growth 08/30/16 01:01 Aerobic Blood Culture Received Blood Peripheral Pending 08/30/16 01:01 Anaerobic Blood Culture Received Blood Peripheral Pending 08/29/16 17:17 Urine Culture - Final Complete Urine Clean Catch 50-100,000 CFU/ML MIXED CINDY... Imaging Last Impressions Abdomen X-Ray 08/30/16 0600 Signed Impressions: Service Date/Time: Tuesday, August 30, 2016 05:06 - CONCLUSION: Slightly prominent loops of small bowel on the left side without evidence for free intraperitoneal air somewhat nonspecific for technique, however partial small bowel obstruction is not excluded. Deborah Dean MD Abdomen/Pelvis CT 08/29/16 1534 Signed Impressions: Service Date/Time: Monday, August 29, 2016 16:20 - CONCLUSION: 1. Evidence of small bowel obstruction with dilated loops of small bowel in the left abdomen with air-fluid levels. 2. Ileostomy, neobladder, and hydronephrosis the right kidney have similar features to prior CT in 2015; however, the distention of the neobladder is greater than prior. 3. Induration of the soft tissues posterior to the anus suggests possible decubitus ulcer. 4. There is protrusion of bowel in the left lower quadrant suggesting the presence of a stoma or a healing hernia. Please correlate with clinical exam. Nikita Aguilar MD Objective Remarks O. CONSTITUTIONAL/GEN: Obese, lying in bed with an NG tube, grunting with discomfort EYES: conjunctiva normal, PERRLA, EOMI. ENT: Lips are dry NECK: Supple LUNGS: clear anteriorly, respiratory effort is normal. CARDIOVASCULAR: RR without murmur or gallop. GI/ABD: Occasional bowel sounds, obese abdomen, I don't elicit tenderness to palpation NEURO: No focal deficits. SKIN: Multiple scars from previous procedures, skin of his lower extremities is dry and scaly, open draining malodorous ulcer left heel HEME/LYMPH: no bruising, petechia or significant adenopathy MUSC: Right BKA stump well-healed. Ulcer left heel. PSYCH/MENTAL STATUS: Alert and oriented x 3. A/P Assessment and Plan 60-year-old male with a past medical history of HTN, CAD s/p CABG 2, spina bifida, multiple abdominal surgeries with colostomy placement, left nephrectomy with urinary diversion pouch, right foot amputation, and L1-L2 paraplegia presents with 1 day history of abdominal pain, nausea and vomiting that is concerning for small bowel obstruction confirmed on CT of abdomen and pelvis. There is also suspicion for a urinary tract infection based on findings on urinalysis and CT which showed distention of the neobladder that is greater than prior CT in 2015 with the patient will be admitted for management of small bowel obstruction and IV antibiotics for possible UTI (patient likely colonized) . Attending Attestation Patient seen and examined. Case reviewed and discussed with the resident team. Agree with plan of care as discussed with me and documented in the resident note. Problem List: (1) Small bowel obstruction Status: Acute Plan: -Evidence of SBO with dilated loops of small bowel in the left abdomen with air-fluid levels on CT abdomen and pelvis -Gen. surgery consulted -Nothing by mouth except ice chips -NG tube in place -KUB in the a.m. -Received one dose of Flagyl 500 mg IV in the ED - will hold off on IV antibiotics for now -Normal saline at 175 mL hour with 40 of K -Morphine 4 mg IV every 4 hours pain 1 through 10 -Dilaudid 1 mg IV every 4 hours when necessary breakthrough pain -Zofran 4mg IV every 6 hours when necessary nausea -Tylenol suppository 650 mg rectal every 4 hours when necessary fever (2) Dehydration Status: Acute Plan: -Patient reports decrease stool outputs with vomiting yesterday a.m. -Potassium decreased to 3.0; repleted IV -Received 1 L normal saline bolus in the ED -Continue 1-1/2 maintenance fluids as above -We will monitor and replace electrolytes as needed (3) Acute on chronic kidney failure Status: Acute Plan: -Creatinine 2.73 in the ED, repeat 2.3 -Baseline creatinine 1.84 in June 2014 -Appears to be ACUTE on chronic CKD stage III with GFR of 24 -Fluids as above -We will monitor and consider nephrology consult if does not improve (4) UTI (urinary tract infection) Status: Acute Plan: -UA significant for large leukocyte esterase, 5 RBC, 20 WBC, moderate bacteria -Leukocytosis to 15.8 -Possible colonization due to bladder pouch and and urinary catheter use -Patient received one dose of Rocephin 1 g IV in the ED -Urine culture shows mixed cindy, will discontinue Rocephin (5) Decubitus ulcer Status: Chronic Plan: -Presence of decubitus ulcer on right lateral thigh and left heel -Wound care consulted for management - appreciate recommendations (6) Chronic Medical Problems Status: Acute Plan: Hypertension: Holding amlodipine 5 mg by mouth daily and hydralazine 100 mg by mouth 3 times a day CAD: Holding aspirin 81 mg by mouth daily Chronic pain: Holding oxycodone 20 mg by mouth every 4 hours when necessary, morphine and Dilaudid when necessary as above Muscle spasms: Holding baclofen 10 mg by mouth 3 times a day Anemia: Holding ferrous sulfate PO (7) FEN/DVT PPX/GI PPX/Nursing Orders Status: Acute Plan: Fluids: NS @ 175 mls/hr IV +40K Electrolytes: Will monitor and replace as needed Nutrition: NPO DVT Prophylaxis: Heparin subcutaneous Q8h GI Prophylaxis: Protonix 40mg IV daily -Vitals Q4h -Monitor I's and O's -Activity bed rest Disposition: Pending resolution of SBO, possibly the next 2-3 days Problem Qualifiers (1) UTI (urinary tract infection): Qualified Code: N39.0 - Urinary tract infection without hematuria, site unspecified (2) Decubitus ulcer: Qualified Code: L89.159 - Decubitus ulcer of sacral region, unspecified ulcer stage Tami Ac MD Aug 30, 2016 12:41
--- NOTE | 2016-08-30 14:40 | EKG ---
Date Performed: 08/29/2016 Time Performed: 15:53:03 PTAGE: 60 years EKG: SINUS BRADYCARDIA Nonspecific T wave change Compared to previous tracing, HR is slower and the Q wave changes are slightly more prominent ABNORMAL ECG PREVIOUS TRACING : 06/28/2014 01.48 DOCTOR: Himanshu Edwards Interpretating Date/Time 08/30/2016 14:39:01
[2016-08-30 16:00] VITALS: BP 171/77; PULSE 65; RESP 18; TEMP 96.9; O2SAT 95
[2016-08-30 17:32] LABS: BICARBONATE 20.2 MEQ/L (21.0-32.0); POTASSIUM 3.9 MEQ/L (3.5-5.1)
[2016-08-30] MEDS ORDERED: cefTRIAXone INJ 1,000 MG in SODIUM CHLORIDE 0.9% INJ 100 ML IV SCH (18:00)
[2016-08-30 20:00] VITALS: BP 164/77; PULSE 69; RESP 20; TEMP 97.8; O2SAT 94
--- NOTE | 2016-08-30 21:17 | MB ---
cc: LUCÍA MILIAN MD DATE OF CONSULTATION: 08/30/2016. REASON FOR CONSULTATION: Bowel obstruction, abdominal pain. HISTORY OF PRESENT ILLNESS: The patient is a 60-year-old male with very complex surgical and medical history including spina bifida, hypertension, coronary artery disease, CABG x2, multiple abdominal surgeries and extremity surgeries and L1-2 paraplegia who presented to the emergency department with complaints of acute onset of abdominal pain. The patient states the pain started a day ago in the evening and was sharp and continued to get worse. It did not really radiate. It was located in the midline epigastric area. It was initially an 8/10 and currently it is a 4/10 and some improvement with nasogastric tube placement and IV pain medications. He states he also had associated vomiting in the morning and decreased ostomy output. He came to the emergency department and further evaluation including CT scan was concerning for small bowel obstruction. General surgery was consulted. On my exam, the patient is a little more comfortable after the nasogastric tube placement. He does still have some persistent midline epigastric abdominal pain. The patient does note that he did have a history of small bowel obstruction in 2014 which was treated at the [facility] for which he underwent nonoperative management and improved and has not had any issues until now. PAST MEDICAL HISTORY: 1. Coronary artery disease. 2. Hypertension. 3. Spina bifida. 4. Paraplegia. 5. Urinary pouch diversion. 6. Peripheral vascular disease. 7. Appendicitis. 8. Cholecystitis. 9. Several spine fusions. PAST SURGICAL HISTORY: 1. CABG x2. 2. Multiple abdominal surgeries including a colostomy. 3. Clostomy placement. 4. Double bypass in 2000. 5. Urinary diversion. 6. Left nephrectomy. 7. C5-6 fusion. 8. C7 discectomy. 9. Cholecystectomy. 10. Appendectomy. 11. Sacral decubitus flap placement. 12. Right foot amputation. The patient states he has had over 120 surgeries. MEDICATIONS: See the electronic medical record. ALLERGIES: 1. COMPAZINE. 2. CONTRAST DYE. 3. THORAZINE. FAMILY HISTORY: Denies hypertension, diabetes. SOCIAL HISTORY: Denies ETOH, smoking, or IV drug abuse. REVIEW OF SYSTEMS: GENERAL: Complains of abdominal pain. HEAD, EYES, EARS, NOSE, THROAT: Denies eye pain, ear pain. NECK: Denies swelling or pain. HEART: Denies currently chest pain, bradycardia. LUNGS: Bilateral expansion, wheezes. ABDOMEN: Soft. Positive tenderness to palpation over a midline incisional scar. Ostomy bag pink and viable. No current stool in the bag. Neobladder pink mucosa right lower quadrant. ENDOCRINE: Denies polyuria or polydipsia. GENITOURINARY: As above. NEUROLOGIC: Denies change in numbness or sensorium. PSYCHIATRIC: Denies altered mood or depression. PHYSICAL EXAMINATION: GENERAL: The patient is in no acute distress. VITAL SIGNS: Temperature 97.8, pulse 52, respirations 18, blood pressure 165/76, saturation 96%. HEAD, EYES, EARS, NOSE, THROAT: Pupils equal, round and reactive to light and accommodation. NECK: Trachea is midline. LUNGS: Bilateral rhonchi. Bilateral expansion. HEART: S1 and S2. Regular rhythm. ABDOMEN: Abdomen soft. Well-healed surgical scars, midline multiple scars. Positive tenderness to palpation. No rebound. No guarding. Ostomy without stool or gas, pink mucosa. Neobladder pink as well with inner cannulated Jean in place. EXTREMITIES: Upper extremities warm and well-perfused, good pulses. Bilateral lower extremities with dry skin, left extremity amputation, decreased pulses. NEUROLOGIC: Awake, alert and oriented times four. Moving upper extremities well. Normal speech. Non-ambulatory. LABORATORY AND DIAGNOSTIC DATA: WBCs 17.7, hemoglobin 12.6, hematocrit 39.8, platelet count 268,000. Sodium 149, potassium 4, chloride 122, BUN is 51, creatinine 2.3, glucose 115, calcium 8.2. AST 15, ALT 15 on admission and alkaline phosphatase 168. Lipase 100. Coags: INR 1. CT scan reviewed by myself: Bowel obstruction, dilated loops of small bowel left abdomen with air fluid levels, ileostomy and neobladder, hydronephrosis of right stoma, pink and viable. ASSESSMENT: The patient is a 60-year-old male with multiple medical issues, multiple surgical history in the past, history of small bowel obstruction now with recurrent small bowel obstruction. PLAN: After full clinical, radiologic and laboratory workup, the patient with the above-named issues including small bowel obstruction likely due to multiple adhesions. At this point, we will treat the patient NPO, nasogastric tube, bowel rest, pain control, IV fluids and will monitor the patient closely with abdominal exams, consider small bowel follow through if the patient does not improve or progress. We will continue to follow. Thank you for the consultation. MD GARY Belcher/DOUG /8:41 PM /8:52 PM ELIZABETH
[2016-08-30] MEDS: FLUOCINOLONE ACETONIDE 0.01% CR 15 GM TUBE TOPICAL SCH (21:32)
[2016-08-31] VITALS: BP 146/67; PULSE 68; RESP 20; TEMP 98.4; O2SAT 95
[2016-08-31] MEDS: MORPHINE SULFATE 4 MG/ML INJ IV PRN ×6 (00:19→23:45)
[2016-08-31] MEDS: ONDANSETRON HCL 4 MG/2 ML VIAL IV PRN ×5 (00:19→21:38)
[2016-08-31] MEDS: SODIUM CHLOR 0.9% 1000 ML INJ 1,000 ML IV SCH (03:54)
[2016-08-31] MEDS: HEPARIN SODIUM - SQ 10,000 UNITS/ML VIAL SQ SCH ×3 (03:54→20:16)
[2016-08-31 05:42] LABS: AUTOMATED NEUTROPHIL # 4.1 TH/MM3 (1.8-7.7); BASOPHIL % 0.6 % (0.0-2.0); EOSINOPHIL # 0.1 TH/MM3 (0-0.4); EOSINOPHIL % 2.5 % (0.0-4.0); HEMATOCRIT 36.6 % (39.0-51.0); HEMO FLAGS DIFF FINAL; LYMPH % 14.9 % (9.0-44.0); LYMPHOCYTE # 0.9 TH/MM3 (1.0-4.8); MEAN CELL VOLUME 79.3 FL (80.0-100.0); MEAN CORPUSCULAR HEMOGLOBIN 24.7 PG (27.0-34.0); MEAN CORPUSCULAR HGB CONC 31.2 % (32.0-36.0); MONO % 12.6 % (0.0-8.0); NEUT % 69.4 % (16.0-70.0); PLATELET COUNT 229 TH/MM3 (150-450); RED BLOOD COUNT 4.61 MIL/MM3 (4.50-5.90); RED CELL DISTRIBUTION WIDTH 19.3 % (11.6-17.2)
[2016-08-31] MEDS: PANTOPRAZOLE SODIUM 40 MG VIAL IVP SCH (07:59)
[2016-08-31 08:00] VITALS: BP 155/80; PULSE 70; RESP 22; TEMP 96.7; O2SAT 93
[2016-08-31 12:00] VITALS: BP 158/85; PULSE 65; RESP 22; TEMP 96; O2SAT 93
--- NOTE | 2016-08-31 12:25 | HHI.FPPN ---
Subjective Remarks Patient seen and examined this morning by medical team. No acute events overnight. Patient hypertensive over the last 24 hours up to 171/77; patient remains asymptomatic. This morning he requests a trial to clamp his NG tube in order for him have something to eat. He states that his pain is overall better and can feel and hear his "bowels moving," however he has not had a BM. He endorses feeling distended and uncomfortable, but denies any fevers, chills, SOB , chest pain, NVD, or calf tenderness. (Bernard Cat MD R1) Objective Vitals Vital Signs Date Time Temp Pulse Resp B/P Pulse Ox O2 Delivery O2 Flow Rate FiO2 08/31/16 08:00 96.7 70 22 155/80 93 08/31/16 00:00 98.4 68 20 146/67 95 08/30/16 20:00 97.8 69 20 164/77 94 08/30/16 16:00 96.9 65 18 171/77 95 I/O 08/30/16 08/30/16 08/30/16 08/31/16 08/31/16 08/31/16 07:00 15:00 23:00 07:00 15:00 23:00 Intake Total 1200 ml 1377 ml 1400 ml 0 ml Output Total 2450 ml 1300 ml 2475 ml 1700 ml Balance -1250 ml 77 ml -1075 ml -1700 ml Intake Oral 0 ml 120 ml 0 ml 0 ml IV Total 1200 ml 1257 ml 1400 ml Output Urine Total 1650 ml 1200 ml 1775 ml 700 ml Stool Total 0 ml Gastric Drainage Total 800 ml 700 ml 1000 ml Drainage Total 100 ml # Bowel Movements 0 0 0 (Bernard Cat MD R1) Result Diagram: 08/31/16 0502 08/30/16 1641 Objective Remarks GENERAL: Obese patient lying in bed in NAD. SKIN: Seborrheic dermatitis on frontal scalp. Cool and dry. Chronic venous stasis changes most notable on RLE. 1 cm healing ulcer on right lateral thigh. Malodorous nonhealing left heel ulcer. HEENT: AT, NC with EOMI. MMM. No LAD or JVD appreciated. CARDIOVASCULAR: RRR with no MGR. RESPIRATORY: CTAB with no CRW. No increased WOB. GASTROINTESTINAL: Abdomen obese, soft, nontender on exam today. Bowel sounds hyperactive in all 4 quadrants. Colostomy bag in place with minimal liquid output. No redness of skin around colostomy bag. Nondistended. No hepato- splenomegaly, or palpable masses. No guarding. Multiple appropriately healed surgical scars on ABD. MUSCULOSKELETAL: No movement or sensation in bilateral lower extremities. Right BKA. Left fifth toe amputation. NEUROLOGICAL: Awake and alert. Cranial nerves II through XII intact. Five out of 5 muscle strength in lateral upper extremities. Normal speech. (Bernard Cat MD R1) A/P Assessment and Plan 60-year-old male with a past medical history of HTN, CAD s/p CABG 2, spina bifida, multiple abdominal surgeries with colostomy placement, left nephrectomy with urinary diversion pouch, right foot amputation, and L1-L2 paraplegia presented with 1 day history of abdominal pain, nausea and vomiting that is concerning for small bowel obstruction confirmed on CT of abdomen and pelvis. The patient was admitted for management of small bowel obstruction. He received 1 dose of Rocephin IV for a possible UTI which was discontinued based on urine culture growing mixed cindy. Discharge Planning Pending improvement of small bowel obstruction, possibly in the next 2-3 days ( Bernard Cat MD R1) Attending Attestation Patient seen and examined. Case reviewed and discussed with the resident team. Agree with plan of care as discussed with me and documented in the resident note. (Tami Ac MD) Problem List: (1) Small bowel obstruction Status: Acute Plan: -Evidence of SBO with dilated loops of small bowel in the left abdomen with air-fluid levels on CT abdomen and pelvis -Gen. surgery consulted - appreciate recommendations -Team will plan to clamp NG tube for trial of clear liquid diet, low threshold to unclamp NG tube and make patient NPO. -NG tube in place - drained 1700 mL over the last 24 hours. Canister clear with green bile in tubing only. -KUB on 08/30 shows slightly prominent loops of small bowel in the left side without evidence for free intraperitoneal air -Normal saline at 150 mL hour -Morphine 4 mg IV every 4 hours pain 1 through 10 -Dilaudid 1 mg IV every 4 hours when necessary breakthrough pain -Added oxycodone 20 mg by mouth every 4 hours as needed for pain -Zofran 4mg IV every 6 hours when necessary nausea -Tylenol suppository 650 mg rectal every 4 hours when necessary fever (2) Dehydration Status: Acute Plan: -Potassium improved to 4.0 compared to 3.0 yesterday -D5 in water with 100 of KCL at 200 mL/hr -Continue to monitor and replace electrolytes as needed (3) Acute on chronic kidney failure Status: Acute Plan: -Creatinine 2.73 in the ED, improved to 2.30 today -Baseline creatinine 1.84 in June 2014 -Appears to be acute on chronic CKD stage III with GFR of 29 -We will monitor and consider nephrology consult if does not improve (4) UTI (urinary tract infection) Status: Acute Plan: -UA significant for large leukocyte esterase, 5 RBC, 20 WBC, moderate bacteria -Leukocytosis to increase to 17.7 compared to 15.8 yesterday - suspect related to his SBO, no signs of peritonitis on exam -We will reevaluate patient's clinical status in the a.m. and consider Flagyl as needed -Most likely colonization due to bladder pouch and and urinary catheter use -Patient received one dose of Rocephin 1 g IV in the ED -Urine culture shows 50-100,000 CFU per mL and final report - Discontinued Rocephin and Flagyl IV (08/29) (5) Decubitus ulcer Status: Chronic Plan: -Presence of decubitus ulcer on right lateral thigh and left heel -Wound care consulted for management, appreciate recommendations -Recommend Podiatry consult for full thickness, 2.5X3cm L heel wound; appreciate recommendations (6) Chronic Medical Problems Status: Acute Plan: Hypertension: Holding amlodipine 5 mg by mouth daily and hydralazine 100 mg by mouth 3 times a day CAD: Holding aspirin 81 mg by mouth daily Chronic pain: Continue oxycodone 20 mg by mouth every 4 hours when necessary, morphine and Dilaudid when necessary as above Muscle spasms: Holding baclofen 10 mg by mouth 3 times a day Anemia: Holding ferrous sulfate PO (7) FEN/DVT PPX/GI PPX/Nursing Orders Status: Acute Plan: Fluids: D5 in water with 100 of KCL at 200 mL/hr Electrolytes: Will monitor and replace as needed Nutrition: Clear liquids as tolerated with NG tube clamped, low threshold to transition to NPO with NG tube to suction if symptoms reoccur DVT Prophylaxis: Heparin subcutaneous Q8h GI Prophylaxis: Protonix 40mg IV daily -Vitals Q4h -Monitor I's and O's -Activity bed rest Case management consulted to assist with disposition needs (Bernard Cat MD R1) Problem Qualifiers (1) UTI (urinary tract infection): Qualified Code: N39.0 - Urinary tract infection without hematuria, site unspecified (2) Decubitus ulcer: Qualified Code: L89.159 - Decubitus ulcer of sacral region, unspecified ulcer stage Bernard Cat MD R1 Aug 31, 2016 12:25 Tami Ac MD Aug 31, 2016 17:41
[2016-08-31] MEDS ORDERED: cloNIDine HCL 0.1 MG TAB PO PRN (14:15)
--- NOTE | 2016-08-31 14:32 | HHI.PR ---
Subjective Subjective Notes Resting in bed Reports gas in colostomy bag overnight Objective Vitals/I&O Vital Signs Date Time Temp Pulse Resp B/P Pulse Ox O2 Delivery O2 Flow Rate FiO2 08/31/16 12:00 96.0 65 22 158/85 93 08/29/16 21:06 Room Air Labs Laboratory Tests Test 08/30/16 08/31/16 16:41 05:02 Sodium Level 153 Potassium Level 3.9 Chloride Level 122 Carbon Dioxide Level 20.2 Anion Gap 11 Blood Urea Nitrogen 41 Creatinine 2.31 Estimat Glomerular Filtration 29 Rate Random Glucose 109 Calcium Level 8.2 White Blood Count 6.0 Red Blood Count 4.61 Hemoglobin 11.4 Hematocrit 36.6 Mean Corpuscular Volume 79.3 Mean Corpuscular Hemoglobin 24.7 Mean Corpuscular Hemoglobin 31.2 Concent Red Cell Distribution Width 19.3 Platelet Count 229 Mean Platelet Volume 7.5 Neutrophils (%) (Auto) 69.4 Lymphocytes (%) (Auto) 14.9 Monocytes (%) (Auto) 12.6 Eosinophils (%) (Auto) 2.5 Basophils (%) (Auto) 0.6 Neutrophils # (Auto) 4.1 Lymphocytes # (Auto) 0.9 Monocytes # (Auto) 0.8 Eosinophils # (Auto) 0.1 Basophils # (Auto) 0.0 CBC Comment DIFF FINAL Differential Comment Date/Time Procedure Status Source Growth 08/30/16 01:01 Aerobic Blood Culture - Preliminary Resulted Blood Peripheral NO GROWTH IN 1 DAY 08/30/16 01:01 Anaerobic Blood Culture - Preliminary Resulted Blood Peripheral NO GROWTH IN 1 DAY 08/29/16 17:17 Urine Culture - Final Complete Urine Clean Catch 50-100,000 CFU/ML MIXED CIERA... Cardiovascular: Regular Lungs: Clear Abdomen: Other (large healed midline wounds; colostomy in place with 2 small stool ) Extremities: Other (LEFT heel ulceration ) A/P Assessment and Plan 60 year old male with multiple medical problems with SBO -Await return of bowel function -If no BM will consider SBFT tomorrow -NGT to LIWS; large output from NGT -Continue non operative treatment at this time Attending Statement patient seen at bedside complicated surgical pt await bowel fxn continues to progress slowly non op mgnt Miley Franco Aug 31, 2016 14:32 Bartolo Batista MD Sep 09, 2016 09:54
[2016-08-31 16:00] VITALS: BP 177/87; PULSE 69; RESP 22; TEMP 98.4; O2SAT 94
[2016-08-31] MEDS ORDERED: DEXTROSE 5% IV SCH ×4 (16:00→20:00)
[2016-08-31] MEDS ORDERED: WATE IV SCH ×4 (16:00→20:00)
[2016-08-31] MEDS ORDERED: POTASSIUM CHLORIDE IV SCH ×4 (16:00→20:00)
[2016-08-31] MEDS: COLLAGENASE OINT 30 GM TUBE TOPICAL SCH (16:51)
[2016-08-31] MEDS: HYDROCORTISONE 0.5% CREAM 30 GM TOPICAL SCH (16:51)
[2016-08-31 18:14] LABS: BICARBONATE 17.5 MEQ/L (21.0-32.0); POTASSIUM 4.4 MEQ/L (3.5-5.1)
[2016-08-31 20:00] VITALS: BP 182/86; PULSE 60; RESP 22; TEMP 97.2; O2SAT 93
[2016-08-31] MEDS: FLUOCINOLONE ACETONIDE 0.01% CR 15 GM TUBE TOPICAL SCH (20:18)
[2016-08-31 21:32] LABS: BICARBONATE 23.1 MEQ/L (21.0-32.0); POTASSIUM 3.5 MEQ/L (3.5-5.1)
[2016-08-31] MEDS: HYDROmorphone HCL PF 1 MG/ML VIAL IV PRN (21:38)
[2016-08-31] MEDS ORDERED: METOCLOPRAMIDE HCL 10 MG/2 ML VIAL IV PUSH PRN (23:30)
[2016-08-31] MEDS: METOCLOPRAMIDE HCL 10 MG/2 ML VIAL IV PUSH PRN (23:45)
[2016-09-01] VITALS: BP 176/87; PULSE 66; RESP 17; TEMP 99; O2SAT 97
[2016-09-01 04:00] VITALS: BP 156/78; PULSE 64; RESP 21; TEMP 96.4; O2SAT 94
[2016-09-01] MEDS: MORPHINE SULFATE 4 MG/ML INJ IV PRN ×2 (05:09→18:46)
[2016-09-01] MEDS: HEPARIN SODIUM - SQ 10,000 UNITS/ML VIAL SQ SCH ×3 (05:09→20:59)
[2016-09-01] MEDS: ONDANSETRON HCL 4 MG/2 ML VIAL IV PRN ×2 (05:09→11:30)
[2016-09-01 05:24] LABS: HEMATOCRIT 38.3 % (39.0-51.0); MEAN CELL VOLUME 78.2 FL (80.0-100.0); MEAN CORPUSCULAR HEMOGLOBIN 24.7 PG (27.0-34.0); MEAN CORPUSCULAR HGB CONC 31.5 % (32.0-36.0); PLATELET COUNT 217 TH/MM3 (150-450); RED CELL DISTRIBUTION WIDTH 18.8 % (11.6-17.2); REVIEW FLAG FINAL; WHITE BLOOD COUNT 6.6 TH/MM3 (4.0-11.0)
[2016-09-01 05:59] LABS: BICARBONATE 23.2 MEQ/L (21.0-32.0); POTASSIUM 3.2 MEQ/L (3.5-5.1)
[2016-09-01 08:00] VITALS: BP 167/73; PULSE 63; RESP 16; TEMP 97.3; O2SAT 94
[2016-09-01] MEDS: METOCLOPRAMIDE HCL 10 MG/2 ML VIAL IV PUSH PRN (08:29)
[2016-09-01] MEDS: HYDROmorphone HCL PF 1 MG/ML VIAL IV PRN ×3 (08:38→16:25)
[2016-09-01] MEDS: PANTOPRAZOLE SODIUM 40 MG VIAL IVP SCH (09:00)
[2016-09-01] MEDS ORDERED: D5-1/2 NS + KCL 10 MEQ INJ 1,000 ML IV SCH (09:00)
[2016-09-01] MEDS: COLLAGENASE OINT 30 GM TUBE TOPICAL SCH (09:03)
[2016-09-01] MEDS: HYDROCORTISONE 0.5% CREAM 30 GM TOPICAL SCH (09:03)
--- NOTE | 2016-09-01 09:41 | HHI.FPPN ---
Subjective Remarks No acute events. Patient with multiple episodes of vomiting overnight. He failed clamping of the NG tube. He did not respond to Zofran but responded well to Reglan. He continues to feel nauseous this morning and is due for his next Reglan dose. Abdomen is cramping but not especially painful. There was 1700 mls output from NG tube yesterday, 550 today. Minimal stool is in his colostomy bag. (Abner London MD R2) Objective Vitals Vital Signs Date Time Temp Pulse Resp B/P Pulse Ox O2 Delivery O2 Flow Rate FiO2 09/01/16 08:00 97.3 63 16 167/73 94 09/01/16 04:00 96.4 64 21 156/78 94 09/01/16 00:00 Room Air 09/01/16 00:00 99.0 66 17 176/87 97 08/31/16 20:00 Room Air 08/31/16 20:00 97.2 60 22 182/86 93 08/31/16 16:00 98.4 69 22 177/87 94 08/31/16 12:00 96.0 65 22 158/85 93 I/O 08/31/16 08/31/16 08/31/16 09/01/16 09/01/16 09/01/16 07:00 15:00 23:00 07:00 15:00 23:00 Intake Total 0 ml 1280 ml 1190 ml Output Total 1700 ml 1450 ml 1210 ml 1450 ml Balance -1700 ml -170 ml -1210 ml -260 ml Intake Oral 0 ml 120 ml IV Total 1160 ml 1190 ml Output Urine Total 700 ml 1250 ml 950 ml 800 ml Stool Total 10 ml 0 ml Gastric Drainage Total 1000 ml 550 ml Emesis 250 ml 100 ml Drainage Total 200 ml # Bowel Movements 0 1 (Abner London MD R2) Result Diagram: 09/01/16 0445 09/01/16 0445 Imaging Last 72 hours Impressions Abdomen X-Ray 08/30/16 0600 Signed Impressions: Service Date/Time: Tuesday, August 30, 2016 05:06 - CONCLUSION: Slightly prominent loops of small bowel on the left side without evidence for free intraperitoneal air somewhat nonspecific for technique, however partial small bowel obstruction is not excluded. Deborah Dean MD Abdomen/Pelvis CT 08/29/16 1534 Signed Impressions: Service Date/Time: Monday, August 29, 2016 16:20 - CONCLUSION: 1. Evidence of small bowel obstruction with dilated loops of small bowel in the left abdomen with air-fluid levels. 2. Ileostomy, neobladder, and hydronephrosis the right kidney have similar features to prior CT in 2015; however, the distention of the neobladder is greater than prior. 3. Induration of the soft tissues posterior to the anus suggests possible decubitus ulcer. 4. There is protrusion of bowel in the left lower quadrant suggesting the presence of a stoma or a healing hernia. Please correlate with clinical exam. Nikita Aguilar MD Abdomen X-Ray 08/29/16 1534 Signed Impressions: Service Date/Time: Monday, August 29, 2016 16:12 - CONCLUSION: No evidence of free intraperitoneal gas. Nikita Aguilar MD Objective Remarks GENERAL: Obese patient lying in bed, holding emesis bag, NG tube in place draining bright green fluid. SKIN: Seborrheic dermatitis on frontal scalp. Chronic venous stasis changes most notable on RLE. 1 cm healing ulcer on right lateral thigh. Malodorous nonhealing left heel ulcer. HEENT: AT, NC with EOMI. MMM. No LAD or JVD appreciated. CARDIOVASCULAR: RRR with no MGR. RESPIRATORY: CTAB with no CRW. No increased WOB. GASTROINTESTINAL: Abdomen obese, soft, mild discomfort with palpation. Bowel sounds hyperactive Colostomy bag in place with minimal stool. No redness of skin around colostomy bag. Nondistended. No hepato-splenomegaly, or palpable masses. No guarding. Multiple appropriately healed surgical scars on ABD. MUSCULOSKELETAL: No movement or sensation in bilateral lower extremities. Right BKA. Left fifth toe amputation. NEUROLOGICAL: Awake and alert. Cranial nerves II through XII intact. Normal speech. (Abner London MD R2) A/P Assessment and Plan 60-year-old male with a past medical history of spina bifida and multiple abdominal surgeries presents with small bowel obstruction. Discharge Planning Pending improvement of small bowel obstruction (Abner London MD R2) Attending Attestation Patient seen and examined. Case reviewed and discussed with the resident team. Agree with plan of care as discussed with me and documented in the resident note. (Tami Ac MD) Problem List: (1) Small bowel obstruction Status: Acute Plan: Evidence of SBO with dilated loops of small bowel in the left abdomen with air-fluid levels on CT abdomen and pelvis -Gen. surgery consulted - appreciate recommendations -NG tube in place - drained 500 mL over the last 24 hours. -D5 half normal saline with 10 meQ KCl for hypernatremia, repeat BMP this afternoon -Morphine 4 mg IV every 4 hours pain 1 through 10 -Dilaudid 1 mg IV every 4 hours when necessary breakthrough pain -Oxycodone 20 mg by mouth every 4 hours as needed for pain -Reglan for nausea/vomiting - May benefit from small bowel follow through study (2) Dehydration Status: Acute Plan: -Potassium improved to 4.0 compared to 3.0 yesterday -D5 in water with 100 of KCL at 200 mL/hr -Continue to monitor and replace electrolytes as needed (3) Acute on chronic kidney failure Status: Acute Plan: Baseline creatinine 1.84 in June 2014, currently 2.33. Appears to be acute on chronic CKD stage III with GFR of 29. -Avoid nephrotoxic agents -Renally dose medications -IV Hydration (4) Decubitus ulcer Status: Chronic Plan: Presence of decubitus ulcer on right lateral thigh and left heel -Wound care consulted for management, appreciate recommendations -Recommend Podiatry consult for full thickness, 2.5X3cm L heel wound; appreciate recommendations (5) Chronic Medical Problems Status: Acute Plan: Hypertension: Resume amlodipine 5 mg by mouth daily and hydralazine 100 mg by mouth 3 times a day CAD: Holding aspirin 81 mg by mouth daily Chronic pain: Continue oxycodone 20 mg by mouth every 4 hours when necessary, morphine and Dilaudid when necessary as above Muscle spasms: Holding baclofen 10 mg by mouth 3 times a day Anemia: Holding ferrous sulfate PO (6) FEN/DVT PPX/GI PPX/Nursing Orders Status: Acute Plan: Fluids: D5 half normal saline with KCl 10 meQ at 150 mls/hr, monitor electrolytes closely Electrolytes: Will monitor and replace as needed Nutrition: Currently NPO with NG tube, not currently tolerating diet DVT Prophylaxis: Heparin subcutaneous Q8h GI Prophylaxis: Protonix 40mg IV daily (Abner London MD R2) Problem Qualifiers (1) Decubitus ulcer: Qualified Code: L89.159 - Decubitus ulcer of sacral region, unspecified ulcer stage Abner London MD R2 Sep 01, 2016 09:41 Tami Ac MD Sep 01, 2016 15:49
[2016-09-01] MEDS: amLODIPine BESYLATE 5 MG TAB PO SCH (09:45)
[2016-09-01 12:00] VITALS: BP 145/92; PULSE 67; RESP 16; TEMP 98; O2SAT 94
[2016-09-01] MEDS: hydrALAZINE HCL 100 MG TAB PO SCH ×2 (13:00→18:00)
--- NOTE | 2016-09-01 13:30 | HHI.PR ---
Subjective Subjective Notes Patient failed trial of NGT clamped and clear liquids Multiple episodes of vomiting Now NGT back to LIWS and NPO Objective Vitals/I&O Vital Signs Date Time Temp Pulse Resp B/P Pulse Ox O2 Delivery O2 Flow Rate FiO2 09/01/16 12:00 98.0 67 16 145/92 94 09/01/16 00:00 Room Air Labs Laboratory Tests Test 08/31/16 08/31/16 09/01/16 17:15 20:33 04:45 Sodium Level 147 150 149 Potassium Level 4.4 3.5 3.2 Chloride Level 122 117 116 Carbon Dioxide Level 17.5 23.1 23.2 Anion Gap 8 10 10 Blood Urea Nitrogen 30 28 27 Creatinine 2.26 2.29 2.33 Estimat Glomerular Filtration 30 29 29 Rate Random Glucose 139 117 103 Calcium Level 8.0 8.3 8.4 White Blood Count 6.6 Red Blood Count 4.90 Hemoglobin 12.1 Hematocrit 38.3 Mean Corpuscular Volume 78.2 Mean Corpuscular Hemoglobin 24.7 Mean Corpuscular Hemoglobin 31.5 Concent Red Cell Distribution Width 18.8 Platelet Count 217 Mean Platelet Volume 7.4 Date/Time Procedure Status Source Growth 08/30/16 01:01 Aerobic Blood Culture - Preliminary Resulted Blood Peripheral NO GROWTH IN 2 DAYS 08/30/16 01:01 Anaerobic Blood Culture - Preliminary Resulted Blood Peripheral NO GROWTH IN 2 DAYS 08/29/16 17:17 Urine Culture - Final Complete Urine Clean Catch 50-100,000 CFU/ML MIXED CIERA... Cardiovascular: Regular Lungs: Clear Abdomen: Other (mutliple healed scars on abdomen; mildly distended; tender; colostomy in place without gas or stool ) Extremities: No edema A/P Assessment and Plan 60 year old male with multiple medical problems with SBO -NGT to LIWS -NPO; okay for a few ice chips -KUB today -If no BM will consider SBFT tomorrow -Continue non operative treatment at this time Attending Statement Pt seen at bedside pt has had multiple surgeries and very complicated medically/surgically. currently with second episode of SBO and multiple episodes of vomiting following ng tube clamp NG TUBE TO SUCTION, NPO CONSIDER SBFT I do not recommend reglan I recommend going very slow. Attestation The exam, history, and the medical decision-making described in the above note were completed with the assistance of the mid-level provider. I reviewed and agree with the findings presented. I attest that I had a [id number]-deuv encounter with the patient on the same day, and personally performed and documented my assessment and findings in the medical record. Miley Franco Sep 01, 2016 13:30 Bartolo Batista MD Sep 02, 2016 10:22
--- NOTE | 2016-09-01 13:51 | RADRPT ---
EXAM DATE/TIME: 09/01/2016 11:53 [facility] COMPARISON: ABDOMEN KUB ONLY, August 30, 2016, 5:06. INDICATIONS : Small bowel obstruction MEDICAL HISTORY : Hypertension. SURGICAL HISTORY : Colostomy. pelvic, femur ENCOUNTER: Initial ACUITY: 3 days PAIN SCORE: Non-responsive. LOCATION: Bilateral abdomen FINDINGS: One apparent interval removal of decompressive nasogastric catheter. There is now mild to moderate ga seous distention of the stomach. Grossly stable appearing slightly dilated loops of small bowel are m inimally in the left abdomen. Overall paucity of colonic air. No gross free air or pneumatosis. Remai nder of the exam is unchanged. CONCLUSION: 1. Mild to moderate gaseous distention of the stomach status post removal of decompressive nasogastri c catheter. 2. Stable slightly prominent loops of small bowel primarily in the left abdomen with continued paucit y of colonic air. Findings are somewhat nonspecific but suggestive of partial bowel obstruction. Jeremiah Caba MD on September 01, 2016 at 13:45 Board Certified Radiologist. This report was verified electronically.
--- NOTE | 2016-09-01 14:56 | PQ ---
Physician Query Response Document PATIENT: KIMMIE JACINTO : 1955 ADMIT DATE: 08/29/2016 6:41 PM DISCH DATE: RESPONDING PROVIDER #: SHoward QUERY TEXT: Anemia Type Anemia is documented in the Medical Record. Please specify the cause (includes suspected or probable cause) Such as: -- Due to acute blood loss -- Due to chronic blood loss -- Due to iron deficiency -- Due to postoperative blood loss -- Due to chronic disease -- Other, please specify The patient's Clinical Indicators include: Anemia: Holding ferrous sulfate PO -Appears to be ACUTE on chronic CKD stage III with GFR of 24 Query created by: Colby De La Cruz on 09/01/2016 10:00 AM RESPONSE TEXT: Anemia likely due to chronic disease. Electronically signed by: Tami Ac MD 09/01/2016 2:53 PM
[2016-09-01 16:07] LABS: BICARBONATE 28.7 MEQ/L (21.0-32.0)
[2016-09-01 16:20] LABS: POTASSIUM 2.9 MEQ/L (3.5-5.1)
[2016-09-01] MEDS ORDERED: POTASSIUM PHOSPHATE INJ 30 MMOL in SODIUM CHLOR 0.9% 250 ML INJ 250 ML IV ONE (17:00)
[2016-09-01] MEDS: D5-1/2 NS + KCL 30 MEQ INJ 1,000 ML IV SCH (18:36)
[2016-09-01 19:51] LABS: MAGNESIUM 2.5 MG/DL (1.5-2.5)
[2016-09-01 20:00] VITALS: BP 172/85; PULSE 69; RESP 18; TEMP 96.1; O2SAT 94
--- NOTE | 2016-09-01 20:12 | MB ---
cc: ALAINA WYATT DATE OF CONSULTATION: 08/31/2016 CHIEF COMPLAINT Left heel ulceration. HISTORY OF PRESENT ILLNESS Mr. Landaverde is a 60-year-old male admitted with a chief complaint of abdominal pain and decreased stool output from his colostomy bag. He was admitted on August 29. He does have bilateral neuropathy and a full foot amputation on the right side and a partial fifth ray amputation of the left side. The patient is currently nauseous and vomiting actively. He states that nursing staff is aware and this is how it has been since admission. He unfortunately has not been feeling any better since admission. PAST MEDICAL HISTORY: 1. Hypertension. 2. Coronary artery disease. 3. Spina bifida. 4. Multiple abdominal issues with colostomy placed. PAST SURGICAL HISTORY: 1. Multiple abdominal surgeries. 2. Colostomy. 3. Left nephrectomy with urinary diversion pouch. 4. Right foot amputation. 5. Left partial ray amputation. 6. Ivan in the left femur. 7. Double CABG. 8. C5-C6 fusion. 9. C7 diskectomy 10. Cholecystectomy 11. Appendectomy 12. Skin flaps for sacral decubitus ulcer. The patient had a total of 125 surgeries in his lifetime. MEDICATIONS: Please see list. ALLERGIES: COMPAZINE CONTRAST DYE THORAZINE FAMILY HISTORY: Noncontributory. SOCIAL HISTORY: The patient denies alcohol, tobacco or drug abuse. He lives alone. Vital signs: Temperature is 98.4 which is also T-max, pulse is 69, respiratory rate 22, blood pressure 177/86, pulse ox 94% O2 on room air. LABORATORY DATA: White count is 6.0 which is down from 15.8, hemoglobin 11.4, hematocrit 36.6, platelets 229. INR 1.0. Sodium 147, potassium 4.4, chloride 122, carbon dioxide 17.5, BUN 30, creatinine 2.26. Blood cultures are negative x1 a day. PHYSICAL EXAMINATION On physical exam the patient has a full amputation of the right foot. The lower extremity has no open ulceration. The left lower extremity has a partial fifth ray amputation, nonpalpable DP or PT pulses. Capillary refill time is less than 3 seconds. Skin of the leg is indurated and dry, posterior heel ulceration 1 cm x 1 cm with necrotic and fibrotic tissue, no erythema, no malodor, mild serosanguineous drainage, no exposed bone, no deep probing. ASSESSMENT/PLAN 1. Left foot stage II eschar ulceration. - Wound is stable, nonsurgical at this time. - Daily Santyl dressing. - If at any point the skin becomes macerated or the wound becomes boggy, will switch to Betadine. Offload heels. Will see the patient intermittently while in-house. Alaina JADE/ANDRADE /8:46 PM /7:53 PM ELIZABETH
[2016-09-01] MEDS: FLUOCINOLONE ACETONIDE 0.01% CR 15 GM TUBE TOPICAL SCH (21:00)
[2016-09-02] VITALS: BP 162/101; PULSE 70; RESP 18; TEMP 98.1; O2SAT 95
[2016-09-02] MEDS: METOCLOPRAMIDE HCL 10 MG/2 ML VIAL IV PUSH PRN ×2 (00:11→11:48)
[2016-09-02] MEDS: MORPHINE SULFATE 4 MG/ML INJ IV PRN ×5 (00:11→23:29)
[2016-09-02 04:00] VITALS: BP 151/80; PULSE 62; RESP 18; TEMP 97.2; O2SAT 92
[2016-09-02] MEDS: D5-1/2 NS + KCL 30 MEQ INJ 1,000 ML IV SCH ×4 (04:07→21:16)
[2016-09-02] MEDS: HEPARIN SODIUM - SQ 10,000 UNITS/ML VIAL SQ SCH ×3 (04:07→21:17)
[2016-09-02] MEDS: ONDANSETRON HCL 4 MG/2 ML VIAL IV PRN (04:10)
[2016-09-02 06:04] LABS: HEMATOCRIT 38.4 % (39.0-51.0); MEAN CELL VOLUME 77.1 FL (80.0-100.0); MEAN CORPUSCULAR HEMOGLOBIN 24.7 PG (27.0-34.0); MEAN CORPUSCULAR HGB CONC 32.1 % (32.0-36.0); PLATELET COUNT 203 TH/MM3 (150-450); RED BLOOD COUNT 4.99 MIL/MM3 (4.50-5.90); RED CELL DISTRIBUTION WIDTH 18.4 % (11.6-17.2); REVIEW FLAG FINAL; WHITE BLOOD COUNT 6.3 TH/MM3 (4.0-11.0)
[2016-09-02 06:26] LABS: BICARBONATE 31.6 MEQ/L (21.0-32.0); MAGNESIUM 2.4 MG/DL (1.5-2.5)
[2016-09-02 08:00] VITALS: BP 122/74; PULSE 65; RESP 17; TEMP 99.3; O2SAT 94
[2016-09-02] MEDS: PANTOPRAZOLE SODIUM 40 MG VIAL IVP SCH (08:46)
[2016-09-02] MEDS: amLODIPine BESYLATE 5 MG TAB PO SCH (08:46)
[2016-09-02] MEDS: hydrALAZINE HCL 100 MG TAB PO SCH ×3 (08:47→17:59)
[2016-09-02] MEDS: SODIUM CHLORIDE 0.9% FLUSH 10 ML FLUSH IV FLUSH PRN ×2 (08:48→18:07)
[2016-09-02] MEDS ORDERED: POTASSIUM PHOSPHATE INJ 30 MMOL in SODIUM CHLOR 0.9% 250 ML INJ 250 ML IV ONE (09:00)
--- NOTE | 2016-09-02 10:18 | HHI.PR ---
Subjective Subjective Notes nausea overnight, ng tube with high output, +stool in ostomy bag Objective Vitals/I&O Vital Signs Date Time Temp Pulse Resp B/P Pulse Ox O2 Delivery O2 Flow Rate FiO2 09/02/16 08:00 99.3 65 17 122/74 94 09/01/16 00:00 Room Air Labs Laboratory Tests Test 09/01/16 09/01/16 09/02/16 14:18 22:52 05:02 Sodium Level 151 147 Potassium Level 2.9 3.3 3.0 Chloride Level 113 108 Carbon Dioxide Level 28.7 31.6 Anion Gap 9 7 Blood Urea Nitrogen 29 27 Creatinine 2.42 2.39 Estimat Glomerular Filtration 28 28 Rate Random Glucose 134 115 Calcium Level 8.7 8.2 Phosphorus Level 2.1 2.7 Magnesium Level 2.5 2.4 White Blood Count 6.3 Red Blood Count 4.99 Hemoglobin 12.3 Hematocrit 38.4 Mean Corpuscular Volume 77.1 Mean Corpuscular Hemoglobin 24.7 Mean Corpuscular Hemoglobin 32.1 Concent Red Cell Distribution Width 18.4 Platelet Count 203 Mean Platelet Volume 7.8 Date/Time Procedure Status Source Growth 08/30/16 01:01 Aerobic Blood Culture - Preliminary Resulted Blood Peripheral NO GROWTH IN 2 DAYS 08/30/16 01:01 Anaerobic Blood Culture - Preliminary Resulted Blood Peripheral NO GROWTH IN 2 DAYS 08/29/16 17:17 Urine Culture - Final Complete Urine Clean Catch 50-100,000 CFU/ML MIXED CIERA... Cardiovascular: Regular Lungs: Clear Abdomen: Other (multiple surgical scars, mild ttp midline, ostomy pink with stool) A/P Assessment and Plan SBO, pt with second recurrence of SBO, EXTREMELY HIGH RISK SURGICAL CANDIDATE PLAN I RECOMMEND NPO DESPITE BM IVF NG TUBE TO SUCTION Bartolo Batista MD Sep 02, 2016 10:18
[2016-09-02] MEDS: COLLAGENASE OINT 30 GM TUBE TOPICAL SCH (11:27)
[2016-09-02] MEDS: HYDROCORTISONE 0.5% CREAM 30 GM TOPICAL SCH (11:27)
[2016-09-02 12:00] VITALS: BP 154/83; PULSE 61; RESP 18; TEMP 98.7; O2SAT 92
--- NOTE | 2016-09-02 12:18 | HHI.FPPN ---
Subjective Remarks Patient doing well this morning. Reports no emesis overnight. Ate a liquid diet last night. Had nausea with it but no vomiting. Intermittent suction restarted. This morning the plan is to clamp the tube and let him try a liquid diet again. He had 3 bowel movements. He feels hungry. He has grumbling in his stomach. He feels less full this morning. (Abner London MD R2) Objective Vitals Vital Signs Date Time Temp Pulse Resp B/P Pulse Ox O2 Delivery O2 Flow Rate FiO2 09/02/16 08:00 99.3 65 17 122/74 94 09/02/16 04:00 97.2 62 18 151/80 92 09/02/16 00:00 98.1 70 18 162/101 95 09/01/16 20:00 96.1 69 18 172/85 94 I/O 09/01/16 09/01/16 09/01/16 09/02/16 09/02/16 09/02/16 07:00 15:00 23:00 07:00 15:00 23:00 Intake Total 1190 ml 562 ml 2348 ml 670 ml Output Total 1450 ml 1600 ml 3700 ml 3100 ml Balance -260 ml -1038 ml -1352 ml -2430 ml Intake Oral 0 ml 280 ml 0 ml IV Total 1190 ml 562 ml 2068 ml 670 ml Output Urine Total 800 ml 2350 ml 300 ml Stool Total 0 ml 800 ml 400 ml Gastric Drainage Total 550 ml 550 ml 2400 ml Emesis 100 ml 700 ml Drainage Total 900 ml (Abner London MD R2) Result Diagram: 09/02/16 0502 09/02/16 0502 Imaging Last 72 hours Impressions Abdomen X-Ray 09/01/16 0000 Signed Impressions: Service Date/Time: Thursday, September 01, 2016 11:53 - CONCLUSION: 1. Mild to moderate gaseous distention of the stomach status post removal of decompressive nasogastric catheter. 2. Stable slightly prominent loops of small bowel primarily in the left abdomen with continued paucity of colonic air. Findings are somewhat nonspecific but suggestive of partial bowel obstruction. Jeremiah Caba MD Objective Remarks GENERAL: Obese patient lying in bed, NG tube in place draining bright green fluid. SKIN: Seborrheic dermatitis on frontal scalp. Chronic venous stasis changes most notable on RLE. 1 cm healing ulcer on right lateral thigh. nonhealing left heel ulcer currently wrapped. HEENT: AT, NC with EOMI. MMM. No LAD or JVD appreciated. CARDIOVASCULAR: RRR with no MGR. RESPIRATORY: CTAB with no CRW. No increased WOB. GASTROINTESTINAL: Abdomen obese, soft, tenderness to deep palpation only. Bowel sounds normal. Colostomy bag in place with stool. No redness of skin around colostomy bag. Nondistended. No hepato-splenomegaly, or palpable masses. No guarding. Multiple appropriately healed surgical scars on ABD. MUSCULOSKELETAL: No movement or sensation in bilateral lower extremities. Right BKA. Left fifth toe amputation. NEUROLOGICAL: Awake and alert. Cranial nerves II through XII intact. Normal speech. (Abner London MD R2) A/P Assessment and Plan 60-year-old male with a past medical history of spina bifida and multiple abdominal surgeries presents with small bowel obstruction. Discharge Planning Pending improvement of small bowel obstruction, tolerating diet, ability to pull the NG tube (Abner London MD R2) Attending Attestation Patient seen and examined. Case reviewed and discussed with the resident team. Agree with plan of care as discussed with me and documented in the resident note. Pt. agrees to remain NPO until cleared by surgery for PO intake. (Tami Ac MD) Problem List: (1) Small bowel obstruction Status: Acute Plan: Evidence of SBO with dilated loops of small bowel in the left abdomen with air-fluid levels on CT abdomen and pelvis. Upright x-ray shows stable SBO. Had bowel movements overnight, no vomiting overnight. -Gen. surgery consulted - appreciate recommendations -NG tube in place, plan to clamp today and try liquid diet -D5 half normal saline with 30 meQ KCl for hypernatremia, hypokalemia. repeat BMP this afternoon -Morphine 4 mg IV every 4 hours pain 1 through 10 -Dilaudid 1 mg IV every 4 hours when necessary breakthrough pain -Oxycodone 20 mg by mouth every 4 hours as needed for pain -Reglan for nausea/vomiting (2) Dehydration Status: Acute Plan: Hypernatremia, hypokalemia -D5 half normal saline with 30 KCL at 150 mL/hr -Continue to monitor and replace electrolytes as needed (3) Acute on chronic kidney failure Status: Acute Plan: Baseline creatinine 1.84 in June 2014, currently 2.39. Appears to be acute on chronic CKD stage III with GFR of 29. -Avoid nephrotoxic agents -Renally dose medications -IV Hydration (4) Decubitus ulcer Status: Chronic Plan: Presence of ulcer on right lateral thigh and left heel. Left heel ulcer is stage II with eschar. -Wound care consulted for management, appreciate recommendations -Recommend Podiatry consult for full thickness, 2.5X3cm L heel wound; appreciate recommendations -Non-surgical at this time. Recommend daily santyl dressing. Switch to betadine if it becomes macerated or boggy. (5) Chronic Medical Problems Status: Acute Plan: Hypertension: Resume amlodipine 5 mg by mouth daily and hydralazine 100 mg by mouth 3 times a day CAD: Holding aspirin 81 mg by mouth daily Chronic pain: Continue oxycodone 20 mg by mouth every 4 hours when necessary, morphine and Dilaudid when necessary as above Muscle spasms: Holding baclofen 10 mg by mouth 3 times a day Anemia: Holding ferrous sulfate PO (6) FEN/DVT PPX/GI PPX/Nursing Orders Status: Acute Plan: Fluids: D5 half normal saline with KCl 30 meQ at 150 mls/hr, monitor electrolytes closely Electrolytes: Will monitor and replace as needed Nutrition: Currently NPO with NG tube, not currently tolerating diet DVT Prophylaxis: Heparin subcutaneous Q8h GI Prophylaxis: Protonix 40mg IV daily (Abner London MD R2) Problem Qualifiers (1) Decubitus ulcer: Qualified Code: L89.159 - Decubitus ulcer of sacral region, unspecified ulcer stage Abner London MD R2 Sep 02, 2016 12:18 Tami Ac MD Sep 02, 2016 15:49
[2016-09-02 15:00] VITALS: BP 160/81; PULSE 60; RESP 18; TEMP 96.2; O2SAT 92
[2016-09-02 18:56] LABS: BICARBONATE 28.5 MEQ/L (21.0-32.0); POTASSIUM 4.2 MEQ/L (3.5-5.1)
[2016-09-02 20:00] VITALS: BP 156/71; PULSE 66; RESP 22; TEMP 97.4; O2SAT 94
[2016-09-02] MEDS: FLUOCINOLONE ACETONIDE 0.01% CR 15 GM TUBE TOPICAL SCH (21:00)
--- NOTE | 2016-09-02 23:08 | HHI.FPPN ---
Objective Vitals Vital Signs Date Time Temp Pulse Resp B/P Pulse Ox O2 Delivery O2 Flow Rate FiO2 09/02/16 20:00 97.4 66 22 156/71 94 09/02/16 15:00 96.2 60 18 160/81 92 09/02/16 12:00 98.7 61 18 154/83 92 09/02/16 08:00 99.3 65 17 122/74 94 09/02/16 04:00 97.2 62 18 151/80 92 09/02/16 00:00 98.1 70 18 162/101 95 I/O 09/01/16 09/01/16 09/01/16 09/02/16 09/02/16 09/02/16 07:00 15:00 23:00 07:00 15:00 23:00 Intake Total 1190 ml 562 ml 2348 ml 670 ml 1678 ml Output Total 1450 ml 1600 ml 3700 ml 3100 ml 2400 ml 200 ml Balance -260 ml -1038 ml -1352 ml -2430 ml -722 ml -200 ml Intake Oral 0 ml 280 ml 0 ml 480 ml IV Total 1190 ml 562 ml 2068 ml 670 ml 1198 ml Output Urine Total 800 ml 2350 ml 300 ml 700 ml Stool Total 0 ml 800 ml 400 ml Gastric Drainage Total 550 ml 550 ml 2400 ml 200 ml Emesis 100 ml 700 ml Drainage Total 900 ml 1700 ml # Bowel Movements 1 Result Diagram: 09/02/16 0502 09/02/16 1735 Objective Remarks GENERAL: Obese patient lying in bed, NG tube in place draining bright green fluid. SKIN: Seborrheic dermatitis on frontal scalp. Chronic venous stasis changes most notable on RLE. 1 cm healing ulcer on right lateral thigh. nonhealing left heel ulcer currently wrapped. HEENT: AT, NC with EOMI. MMM. No LAD or JVD appreciated. CARDIOVASCULAR: RRR with no MGR. RESPIRATORY: CTAB with no CRW. No increased WOB. GASTROINTESTINAL: Abdomen obese, soft, tenderness to deep palpation only. Bowel sounds normal. Colostomy bag in place with stool. No redness of skin around colostomy bag. Nondistended. No hepato-splenomegaly, or palpable masses. No guarding. Multiple appropriately healed surgical scars on ABD. MUSCULOSKELETAL: No movement or sensation in bilateral lower extremities. Right BKA. Left fifth toe amputation. NEUROLOGICAL: Awake and alert. Cranial nerves II through XII intact. Normal speech. A/P Assessment and Plan 60-year-old male with a past medical history of spina bifida and multiple abdominal surgeries presents with small bowel obstruction. Discharge Planning Pending improvement of small bowel obstruction, tolerating diet, ability to pull the NG tube Problem List: (1) Small bowel obstruction Status: Acute Plan: Evidence of SBO with dilated loops of small bowel in the left abdomen with air-fluid levels on CT abdomen and pelvis. Upright x-ray shows stable SBO. Had bowel movements overnight, no vomiting overnight. -Gen. surgery consulted - appreciate recommendations -NG tube in place, plan to clamp today and try liquid diet -D5 half normal saline with 30 meQ KCl for hypernatremia, hypokalemia. repeat BMP this afternoon -Morphine 4 mg IV every 4 hours pain 1 through 10 -Dilaudid 1 mg IV every 4 hours when necessary breakthrough pain -Oxycodone 20 mg by mouth every 4 hours as needed for pain -Reglan for nausea/vomiting (2) Dehydration Status: Acute Plan: Hypernatremia, hypokalemia -D5 half normal saline with 30 KCL at 150 mL/hr -Continue to monitor and replace electrolytes as needed (3) Acute on chronic kidney failure Status: Acute Plan: Baseline creatinine 1.84 in June 2014, currently 2.39. Appears to be acute on chronic CKD stage III with GFR of 29. -Avoid nephrotoxic agents -Renally dose medications -IV Hydration (4) Decubitus ulcer Status: Chronic Plan: Presence of ulcer on right lateral thigh and left heel. Left heel ulcer is stage II with eschar. -Wound care consulted for management, appreciate recommendations -Recommend Podiatry consult for full thickness, 2.5X3cm L heel wound; appreciate recommendations -Non-surgical at this time. Recommend daily santyl dressing. Switch to betadine if it becomes macerated or boggy. (5) Chronic Medical Problems Status: Acute Plan: Hypertension: Resume amlodipine 5 mg by mouth daily and hydralazine 100 mg by mouth 3 times a day CAD: Holding aspirin 81 mg by mouth daily Chronic pain: Continue oxycodone 20 mg by mouth every 4 hours when necessary, morphine and Dilaudid when necessary as above Muscle spasms: Holding baclofen 10 mg by mouth 3 times a day Anemia: Holding ferrous sulfate PO (6) FEN/DVT PPX/GI PPX/Nursing Orders Status: Acute Plan: Fluids: D5 half normal saline with KCl 30 meQ at 150 mls/hr, monitor electrolytes closely Electrolytes: Will monitor and replace as needed Nutrition: Currently NPO with NG tube, not currently tolerating diet DVT Prophylaxis: Heparin subcutaneous Q8h GI Prophylaxis: Protonix 40mg IV daily Problem Qualifiers (1) Decubitus ulcer: Qualified Code: L89.159 - Decubitus ulcer of sacral region, unspecified ulcer stage Eko,Stephani Vickers MD R1 Sep 02, 2016 23:08
--- NOTE | 2016-09-02 23:14 | HHI.FPPN ---
Addendum to progress note ADDENDUM Reason for addendum: Additonal documentation Additional information Called by nurse regarding streaking of blood in the NG tube. Patient had a red popsicle early this afternoon and shortly afterward noticed bright red liquid in the NG tube. However, now he is having some brownish tinged fluid in the NG tube, a scant amount per nurses report. He does not have increased abdominal pain. He has no vomiting but has felt nauseous throughout the day. He's had one more bowel movement since this morning. He is hemodynamically stable. Vitals stable PE: Resting in bed No distress Greenish fluid draining from NG tube Abdomen soft, tender to deep palpation Bowel sounds present but minimal Assessment: Scant amount of brownish tinged fluid, possibly blood. Likely from mucosal irritation from the NG tube. Also had red popsicle earlier. No history of GI bleed per patient's report. Plan: - Send fluid for hemoccult - Monitor vital signs - Monitor hemodynamic status and amount of blood - Nothing urgent to do unless bleeding become large or vital signs become unstable. - Possible GI consult if blood still present tomorrow, will discuss with team - Try IV Tylenol and reduce opiate use to avoid further constipation Seen and discussed with Abner Onofre MD R2 Sep 02, 2016 23:14
[2016-09-02] MEDS: ACETAMINOPHEN 1000 MG/100 ML VIAL IV SCH (23:26)
[2016-09-03] VITALS: BP 163/76; PULSE 62; RESP 22; TEMP 96.1; O2SAT 95
[2016-09-03 04:00] VITALS: BP 149/78; PULSE 59; RESP 20; TEMP 96.5; O2SAT 94
[2016-09-03] MEDS: MORPHINE SULFATE 4 MG/ML INJ IV PRN ×4 (04:45→20:50)
[2016-09-03 05:19] LABS: HEMATOCRIT 38.6 % (39.0-51.0); MEAN CELL VOLUME 77.7 FL (80.0-100.0); MEAN CORPUSCULAR HEMOGLOBIN 24.3 PG (27.0-34.0); MEAN CORPUSCULAR HGB CONC 31.2 % (32.0-36.0); PLATELET COUNT 178 TH/MM3 (150-450); RED BLOOD COUNT 4.96 MIL/MM3 (4.50-5.90); RED CELL DISTRIBUTION WIDTH 18.1 % (11.6-17.2); REVIEW FLAG FINAL; WHITE BLOOD COUNT 6.6 TH/MM3 (4.0-11.0)
[2016-09-03 05:42] LABS: BICARBONATE 28.8 MEQ/L (21.0-32.0); POTASSIUM 3.3 MEQ/L (3.5-5.1)
[2016-09-03] MEDS: D5-1/2 NS + KCL 30 MEQ INJ 1,000 ML IV SCH (05:54)
[2016-09-03] MEDS: ACETAMINOPHEN 1000 MG/100 ML VIAL IV SCH ×4 (05:55→22:22)
[2016-09-03] MEDS: HEPARIN SODIUM - SQ 10,000 UNITS/ML VIAL SQ SCH ×3 (06:01→20:49)
[2016-09-03] MEDS: D5-1/2 NS + KCL 40 MEQ INJ 1,000 ML IV SCH ×3 (07:16→20:49)
[2016-09-03 08:00] VITALS: BP 138/75; PULSE 56; RESP 17; TEMP 97.6; O2SAT 93
[2016-09-03 08:42] LABS: MAGNESIUM 2.2 MG/DL (1.5-2.5)
[2016-09-03] MEDS ORDERED: POTASSIUM PHOSPHATE INJ 30 MMOL in SODIUM CHLOR 0.9% 250 ML INJ 250 ML IV ONE (09:00)
[2016-09-03] MEDS: COLLAGENASE OINT 30 GM TUBE TOPICAL SCH (09:00)
[2016-09-03] MEDS: HYDROCORTISONE 0.5% CREAM 30 GM TOPICAL SCH (09:00)
[2016-09-03] MEDS: PANTOPRAZOLE SODIUM 40 MG VIAL IVP SCH (09:09)
[2016-09-03] MEDS: amLODIPine BESYLATE 5 MG TAB PO SCH (09:09)
[2016-09-03] MEDS: hydrALAZINE HCL 100 MG TAB PO SCH ×3 (09:09→17:59)
[2016-09-03 12:00] VITALS: BP 153/83; PULSE 64; RESP 18; TEMP 97.4; O2SAT 92
--- NOTE | 2016-09-03 12:17 | HHI.PR ---
Subjective Subjective Notes Resting in bed Patient reports he feels better today and had colostomy output Objective Vitals/I&O Vital Signs Date Time Temp Pulse Resp B/P Pulse Ox O2 Delivery O2 Flow Rate FiO2 09/03/16 08:00 97.6 56 17 138/75 93 09/01/16 00:00 Room Air Labs Laboratory Tests Test 09/02/16 09/03/16 17:35 04:37 Sodium Level 146 145 Potassium Level 4.2 3.3 Chloride Level 109 108 Carbon Dioxide Level 28.5 28.8 Anion Gap 9 8 Blood Urea Nitrogen 26 23 Creatinine 2.26 2.25 Estimat Glomerular Filtration 30 30 Rate Random Glucose 100 105 Calcium Level 8.0 8.1 White Blood Count 6.6 Red Blood Count 4.96 Hemoglobin 12.1 Hematocrit 38.6 Mean Corpuscular Volume 77.7 Mean Corpuscular Hemoglobin 24.3 Mean Corpuscular Hemoglobin 31.2 Concent Red Cell Distribution Width 18.1 Platelet Count 178 Mean Platelet Volume 7.5 Phosphorus Level 3.1 Magnesium Level 2.2 Date/Time Procedure Status Source Growth 09/02/16 22:52 Stool Occult Blood (ALLIE) - Final Complete Stool Stool HEMOCCULT POSITIVE 08/30/16 01:01 Aerobic Blood Culture - Preliminary Resulted Blood Peripheral NO GROWTH IN 4 DAYS 08/30/16 01:01 Anaerobic Blood Culture - Preliminary Resulted Blood Peripheral NO GROWTH IN 4 DAYS 08/29/16 17:17 Urine Culture - Final Complete Urine Clean Catch 50-100,000 CFU/ML MIXED CIERA... Cardiovascular: Regular Lungs: Clear Abdomen: Non-distended, Non-tender, Other (colostomy in place with stool in collection bag ) Extremities: No edema A/P Assessment and Plan 60 year old male with multiple medical problems with SBO -Clamp NGT -Start sips of clears -If nausea/vomiting occur ---connect back to LIWS -Continue non operative treatment at this time -Discussed with MIKEY Goff at bedside Attending Statement patient seen at bedside patient seen at bedside clears, re hook ng to sxn if nausea Attestation The exam, history, and the medical decision-making described in the above note were completed with the assistance of the mid-level provider. I reviewed and agree with the findings presented. I attest that I had a [id number] encounter with the patient on the same day, and personally performed and documented my assessment and findings in the medical record. Miley Franco Sep 03, 2016 12:17 Bartolo Batista MD Sep 10, 2016 13:13
[2016-09-03] MEDS: METOCLOPRAMIDE HCL 10 MG/2 ML VIAL IV PUSH PRN ×2 (14:52→22:18)
--- NOTE | 2016-09-03 15:06 | HHI.FPPN ---
Subjective Remarks She is seen and examined this morning. No acute events overnight with vital signs stable. Patient reports that Gen. surgery has cleared patient for trial of clear liquid diet and clamping of his NG tube. He reports colostomy output and feels much better today. He denies any fevers, chills, shortness of breath, chest pain, V/D, abdominal pain ,or calf tenderness (Bernard Cat MD R1) Objective Vitals Vital Signs Date Time Temp Pulse Resp B/P Pulse Ox O2 Delivery O2 Flow Rate FiO2 09/03/16 12:00 97.4 64 18 153/83 92 09/03/16 08:00 97.6 56 17 138/75 93 09/03/16 04:00 96.5 59 20 149/78 94 09/03/16 00:00 96.1 62 22 163/76 95 09/02/16 20:00 97.4 66 22 156/71 94 09/02/16 15:00 96.2 60 18 160/81 92 I/O 09/02/16 09/02/16 09/02/16 09/03/16 09/03/16 09/03/16 07:00 15:00 23:00 07:00 15:00 23:00 Intake Total 670 ml 1678 ml 2343 ml 1752 ml 1316 ml Output Total 3100 ml 2400 ml 1950 ml 1450 ml 1600 ml Balance -2430 ml -722 ml 393 ml 302 ml -284 ml Intake Oral 0 ml 480 ml 0 ml 0 ml IV Total 670 ml 1198 ml 2343 ml 1752 ml 1316 ml Output Urine Total 300 ml 700 ml 700 ml 550 ml Stool Total 400 ml 100 ml Gastric Drainage Total 2400 ml 1150 ml 900 ml 1600 ml Drainage Total 1700 ml # Bowel Movements 1 0 (Bernard Cat MD R1) Result Diagram: 09/03/167 09/03/16436 Objective Remarks GENERAL: Obese patient lying in bed, NG tube currently clamped with minimal bilious fluid in tubing and suction canister. SKIN: Seborrheic dermatitis on frontal scalp. Chronic venous stasis changes most notable on RLE. 1 cm healing ulcer on right lateral thigh. Nonhealing left heel ulcer currently wrapped. HEENT: AT, NC with EOMI. MMM. No LAD or JVD appreciated. CARDIOVASCULAR: RRR with no MGR. RESPIRATORY: CTAB with no CRW. No increased WOB. GASTROINTESTINAL: Abdomen obese, soft, tenderness to deep palpation only. Bowel sounds normal. Colostomy bag in place with stool output. No redness of skin around colostomy bag. Nondistended. No hepato-splenomegaly, or palpable masses. No guarding. Multiple appropriately healed surgical scars on ABD. MUSCULOSKELETAL: No movement or sensation in bilateral lower extremities. Right BKA. Left fifth toe amputation. NEUROLOGICAL: Awake and alert. Cranial nerves II through XII intact. Normal speech. (Bernard Cat MD R1) A/P Assessment and Plan 60-year-old male with a past medical history of spina bifida and multiple abdominal surgeries presents with small bowel obstruction. Discharge Planning Pending improvement of small bowel obstruction, tolerating diet, ability to pull the NG tube (Bernard Cat MD R1) Attending Attestation Patient seen and examined. Case reviewed and discussed with the resident team. Agree with plan of care as discussed with me and documented in the resident note. (Tami Ac MD) Problem List: (1) Small bowel obstruction Status: Acute Plan: Evidence of SBO with dilated loops of small bowel in the left abdomen with air-fluid levels on CT abdomen and pelvis. Upright x-ray shows stable SBO. Had bowel movements overnight, no vomiting overnight. -Gen. surgery consulted - appreciate recommendations -NG tube in place, plan to clamp today and try liquid diet per general surgery -D5 half normal saline with 40 meQ KCl for hypernatremia, hypokalemia. Repeat potassium this afternoon. -Morphine 4 mg IV every 4 hours pain 1 through 10 -Dilaudid 1 mg IV every 4 hours when necessary breakthrough pain -Oxycodone 20 mg by mouth every 4 hours as needed for pain -Tylenol 1 g every 6 hours scheduled for pain and hopes to avoid narcotics to avoid further constipation -Reglan for nausea/vomiting (2) Dehydration Status: Acute Plan: Hypernatremia, hypokalemia -D5 half normal saline with 40 KCL at 150 mL/hr -Continue to monitor and replace electrolytes as needed (3) Acute on chronic kidney failure Status: Acute Plan: Baseline creatinine 1.84 in June 2014, currently 2.39. Appears to be acute on chronic CKD stage III with GFR of 29. -Avoid nephrotoxic agents -Renally dose medications -IV Hydration (4) Decubitus ulcer Status: Chronic Plan: Presence of ulcer on right lateral thigh and left heel. Left heel ulcer is stage II with eschar. -Wound care consulted for management, appreciate recommendations -Recommend Podiatry consult for full thickness, 2.5X3cm L heel wound; appreciate recommendations -Non-surgical at this time. Recommend daily santyl dressing. Switch to betadine if it becomes macerated or boggy. (5) Chronic Medical Problems Status: Acute Plan: Hypertension: Resume amlodipine 5 mg by mouth daily and hydralazine 100 mg by mouth 3 times a day CAD: Holding aspirin 81 mg by mouth daily Chronic pain: Continue oxycodone 20 mg by mouth every 4 hours when necessary, morphine and Dilaudid when necessary as above Muscle spasms: Holding baclofen 10 mg by mouth 3 times a day Anemia: Holding ferrous sulfate PO (6) FEN/DVT PPX/GI PPX/Nursing Orders Status: Acute Plan: Fluids: D5 half normal saline with KCl 40 meQ at 150 mls/hr, monitor electrolytes closely Electrolytes: Will monitor and replace as needed Nutrition: Currently NG tube clamped with trial of clear liquids, low threshold for nothing by mouth and NG tube placed to suction DVT Prophylaxis: Heparin subcutaneous Q8h GI Prophylaxis: Protonix 40mg IV daily (Bernard Cat MD R1) Problem Qualifiers (1) Decubitus ulcer: Qualified Code: L89.159 - Decubitus ulcer of sacral region, unspecified ulcer stage Bernard Cat MD R1 Sep 03, 2016 15:06 Tami Ac MD Sep 03, 2016 15:17
[2016-09-03 16:00] VITALS: BP 161/76; PULSE 72; RESP 17; TEMP 96.6; O2SAT 90
[2016-09-03 20:00] VITALS: BP 160/62; PULSE 63; RESP 22; TEMP 97.7; O2SAT 94
[2016-09-03] MEDS: FLUOCINOLONE ACETONIDE 0.01% CR 15 GM TUBE TOPICAL SCH (20:52)
[2016-09-04] VITALS: BP 169/80; PULSE 68; RESP 22; TEMP 96.2; O2SAT 96
[2016-09-04] MEDS: ONDANSETRON HCL 4 MG/2 ML VIAL IV PRN (03:53)
[2016-09-04] MEDS: MORPHINE SULFATE 4 MG/ML INJ IV PRN ×5 (03:53→23:20)
[2016-09-04] MEDS: HEPARIN SODIUM - SQ 10,000 UNITS/ML VIAL SQ SCH ×3 (03:56→20:18)
[2016-09-04 04:00] VITALS: BP 169/80; PULSE 68; RESP 22; TEMP 96.2; O2SAT 96
[2016-09-04] MEDS: ACETAMINOPHEN 1000 MG/100 ML VIAL IV SCH ×4 (06:01→23:54)
[2016-09-04] MEDS: D5-1/2 NS + KCL 40 MEQ INJ 1,000 ML IV SCH ×4 (06:02→23:55)
[2016-09-04 07:32] LABS: BICARBONATE 29.4 MEQ/L (21.0-32.0); POTASSIUM 4.5 MEQ/L (3.5-5.1)
[2016-09-04 07:36] LABS: HEMATOCRIT 41.8 % (39.0-51.0); MEAN CELL VOLUME 77.4 FL (80.0-100.0); MEAN CORPUSCULAR HEMOGLOBIN 23.8 PG (27.0-34.0); MEAN CORPUSCULAR HGB CONC 30.7 % (32.0-36.0); PLATELET COUNT 178 TH/MM3 (150-450); RED CELL DISTRIBUTION WIDTH 18.1 % (11.6-17.2); REVIEW FLAG FINAL; WHITE BLOOD COUNT 9.2 TH/MM3 (4.0-11.0)
[2016-09-04 08:00] VITALS: BP 165/84; PULSE 66; RESP 18; TEMP 98.3; O2SAT 92
[2016-09-04] MEDS: HYDROCORTISONE 0.5% CREAM 30 GM TOPICAL SCH (09:00)
[2016-09-04] MEDS: COLLAGENASE OINT 30 GM TUBE TOPICAL SCH (09:00)
[2016-09-04] MEDS: amLODIPine BESYLATE 5 MG TAB PO SCH (10:00)
[2016-09-04] MEDS: hydrALAZINE HCL 100 MG TAB PO SCH ×3 (10:00→17:29)
[2016-09-04] MEDS: PANTOPRAZOLE SODIUM 40 MG VIAL IVP SCH (10:01)
[2016-09-04] MEDS: METOCLOPRAMIDE HCL 10 MG/2 ML VIAL IV PUSH PRN ×2 (10:02→20:18)
[2016-09-04] MEDS: HYDROmorphone HCL PF 1 MG/ML VIAL IV PRN (13:11)
--- NOTE | 2016-09-04 14:27 | HHI.FPPN ---
Subjective Remarks No acute events. Patient with tube clamped since 6 PM. Having feelings of fullness, mild nausea, no vomiting. Tolerating clears. Abdomen is soft. Had large bowel movement overnight. Stool is soft and foul smelling. (Abner London MD R2) Objective Vitals Vital Signs Date Time Temp Pulse Resp B/P Pulse Ox O2 Delivery O2 Flow Rate FiO2 09/04/16 08:00 98.3 66 18 165/84 92 09/04/16 07:44 Room Air 09/04/16 04:00 96.2 68 22 169/80 96 09/04/16 00:00 96.2 68 22 169/80 96 09/03/16 20:00 97.7 63 22 160/62 94 09/03/16 16:00 96.6 72 17 161/76 90 I/O 09/03/16 09/03/16 09/03/16 09/04/16 09/04/16 09/04/16 07:00 15:00 23:00 07:00 15:00 23:00 Intake Total 1752 ml 1316 ml 120 ml 1563 ml 100 ml Output Total 1450 ml 1600 ml 3150 ml 2700 ml Balance 302 ml -284 ml -3030 ml -1137 ml 100 ml Intake Oral 0 ml 120 ml 320 ml IV Total 1752 ml 1316 ml 1243 ml 100 ml Output Urine Total 550 ml 300 ml 500 ml Stool Total 200 ml Gastric Drainage Total 900 ml 1600 ml 2850 ml 2000 ml # Bowel Movements 0 0 (Abner London MD R2) Result Diagram: 09/04/16 0709/04/16 0705 Objective Remarks GENERAL: Obese patient lying in bed, NG tube currently clamped with minimal bilious fluid in tubing and suction canister. SKIN: Seborrheic dermatitis on frontal scalp. Chronic venous stasis changes most notable on RLE. 1 cm healing ulcer on right lateral thigh. Nonhealing left heel ulcer currently wrapped. HEENT: AT, NC with EOMI. MMM. No LAD or JVD appreciated. CARDIOVASCULAR: RRR with no MGR. RESPIRATORY: CTAB with no CRW. No increased WOB. GASTROINTESTINAL: Abdomen obese, soft, tenderness to deep palpation only. Bowel sounds reduced. Colostomy bag in place with stool output, soft. No redness of skin around colostomy bag. . No hepato-splenomegaly, or palpable masses. No guarding. Multiple appropriately healed surgical scars on ABD. MUSCULOSKELETAL: No movement or sensation in bilateral lower extremities. Right BKA. Left fifth toe amputation. NEUROLOGICAL: Awake and alert. Cranial nerves II through XII intact. Normal speech. (Abner London MD R2) A/P Assessment and Plan 60-year-old male with a past medical history of spina bifida and multiple abdominal surgeries presents with small bowel obstruction. Discharge Planning Pending improvement of small bowel obstruction, tolerating diet, ability to pull the NG tube (Abner London MD R2) Attending Attestation Patient seen and examined. Case reviewed and discussed with the resident team. Agree with plan of care as discussed with me and documented in the resident note. (Tami Ac MD) Problem List: (1) Small bowel obstruction Status: Acute Plan: Evidence of SBO with dilated loops of small bowel in the left abdomen with air-fluid levels on CT abdomen and pelvis. Upright x-ray shows stable SBO. Had bowel movements overnight, no vomiting overnight. -Gen. surgery consulted - appreciate recommendations -NG tube clamped, attempting liquid diet, low threshold to restart suction for vomiting/distension -D5 half normal saline with 40 meQ KCl for hypernatremia, hypokalemia. -Morphine 4 mg IV every 4 hours pain 1 through 10 -Dilaudid 1 mg IV every 4 hours when necessary breakthrough pain -Oxycodone 20 mg by mouth every 4 hours as needed for pain -Tylenol 1 g every 6 hours scheduled for pain and hopes to avoid narcotics to avoid further constipation -Reglan for nausea/vomiting - Plan for small bowel follow through (2) Dehydration Status: Acute Plan: Borderline high sodium -D5 half normal saline with 40 KCL at 150 mL/hr -Continue to monitor and replace electrolytes as needed (3) Acute on chronic kidney failure Status: Acute Plan: Baseline creatinine 1.84 in June 2014, currently back down to 1.98, improved. Appears to be acute on chronic CKD stage III. -Avoid nephrotoxic agents -Renally dose medications -IV Hydration (4) Decubitus ulcer Status: Chronic Plan: Presence of ulcer on right lateral thigh and left heel. Left heel ulcer is stage II with eschar. -Wound care consulted for management, appreciate recommendations -Recommend Podiatry consult for full thickness, 2.5X3cm L heel wound; appreciate recommendations -Non-surgical at this time. Recommend daily santyl dressing. Switch to betadine if it becomes macerated or boggy. (5) Chronic Medical Problems Status: Acute Plan: Hypertension: Resume amlodipine 5 mg by mouth daily and hydralazine 100 mg by mouth 3 times a day CAD: Holding aspirin 81 mg by mouth daily Chronic pain: Continue oxycodone 20 mg by mouth every 4 hours when necessary, morphine and Dilaudid when necessary as above Muscle spasms: Holding baclofen 10 mg by mouth 3 times a day Anemia: Holding ferrous sulfate PO (6) FEN/DVT PPX/GI PPX/Nursing Orders Status: Acute Plan: Fluids: D5 half normal saline with KCl 40 meQ at 150 mls/hr, monitor electrolytes closely Electrolytes: Will monitor and replace as needed Nutrition: Currently NG tube clamped with trial of clear liquids, low threshold for nothing by mouth and NG tube placed to suction DVT Prophylaxis: Heparin subcutaneous Q8h GI Prophylaxis: Protonix 40mg IV daily (Abner London MD R2) Problem Qualifiers (1) Decubitus ulcer: Qualified Code: L89.159 - Decubitus ulcer of sacral region, unspecified ulcer stage Abner London MD R2 Sep 04, 2016 14:27 Tami Ac MD Sep 04, 2016 15:50
--- NOTE | 2016-09-04 15:19 | RADRPT ---
EXAM DATE/TIME: 09/04/2016 11:22 [facility] COMPARISON: CT ABDOMEN & PELVIS W/O CONTRAST, August 29, 2016, 16:20. INDICATIONS : Abdominal pain, evaluate for obstruction. FLUORO TIME: 0 minutes IMAGE COUNT: 13 CONTRAST: MD Jordan IMAGING TIME(S): 15 min, 30 min, 45 min, 3 hr MEDICAL HISTORY : None. SURGICAL HISTORY : Colostomy. Nephrectomy, left. ENCOUNTER: Initial ACUITY: 2 weeks PAIN SCORE: 10/10 LOCATION: Abdomen FINDINGS: Nasogastric tube is across the GE junction. Gastrografin was instilled into a distended stomach. Th ere is minimally dilated small bowel. There is no point of obstruction. Radiograph contrast is present in the colostomy. CONCLUSION: 1. Minimal nonspecific small bowel dilatation. I don't see evidence for obstruction. 2. Examination is limited by the patient's large body habitus. Jose Crocker MD FACR on September 04, 2016 at 15:13 Board Certified Radiologist. This report was verified electronically.
[2016-09-04 16:00] VITALS: BP 138/75; PULSE 78; RESP 17; TEMP 96.5; O2SAT 94
--- NOTE | 2016-09-04 16:36 | HHI.PR ---
Subjective Subjective Notes Resting in bed Nausea at the moment and patient connected to [facility] Objective Vitals/I&O Vital Signs Date Time Temp Pulse Resp B/P Pulse Ox O2 Delivery O2 Flow Rate FiO2 09/04/16 16:00 96.5 78 17 138/75 94 09/04/16 07:44 Room Air Labs Laboratory Tests Test 09/03/16 09/04/16 20:47 07:05 Potassium Level 4.1 4.5 White Blood Count 9.2 Red Blood Count 5.40 Hemoglobin 12.8 Hematocrit 41.8 Mean Corpuscular Volume 77.4 Mean Corpuscular Hemoglobin 23.8 Mean Corpuscular Hemoglobin 30.7 Concent Red Cell Distribution Width 18.1 Platelet Count 178 Mean Platelet Volume 8.1 Hematology Comments Sodium Level 145 Chloride Level 107 Carbon Dioxide Level 29.4 Anion Gap 9 Blood Urea Nitrogen 24 Creatinine 1.98 Estimat Glomerular Filtration 35 Rate Random Glucose 98 Calcium Level 8.2 Date/Time Procedure Status Source Growth 09/02/16 22:52 Stool Occult Blood (ALLIE) - Final Complete Stool Stool HEMOCCULT POSITIVE Cardiovascular: Regular Lungs: Clear Abdomen: Non-distended, Other (liquid stool in colostomy; minimal tender with palpation ) Extremities: No edema A/P Assessment and Plan 60 year old male with multiple medical problems with SBO -SBFT shows no obstruction -NGT to LIWS due to nausea -Continue non operative treatment at this time Miley Franco Sep 04, 2016 16:36
[2016-09-04] MEDS: FLUOCINOLONE ACETONIDE 0.01% CR 15 GM TUBE TOPICAL SCH (20:25)
[2016-09-04 22:09] VITALS: BP 135/84; PULSE 74; RESP 18; TEMP 98.3; O2SAT 93
[2016-09-05] VITALS: BP 152/95; PULSE 75; RESP 20; TEMP 96.7; O2SAT 93
[2016-09-05] MEDS: MORPHINE SULFATE 4 MG/ML INJ IV PRN ×4 (04:47→21:23)
[2016-09-05] MEDS: METOCLOPRAMIDE HCL 10 MG/2 ML VIAL IV PUSH PRN (04:47)
[2016-09-05] MEDS: ACETAMINOPHEN 1000 MG/100 ML VIAL IV SCH ×3 (04:49→16:41)
[2016-09-05] MEDS: HEPARIN SODIUM - SQ 10,000 UNITS/ML VIAL SQ SCH ×3 (05:07→19:40)
--- NOTE | 2016-09-05 05:36 | RADRPT ---
EXAM DATE/TIME: 09/05/2016 04:38 [facility] COMPARISON: ABDOMEN KUB ONLY, September 01, 2016, 11:53. INDICATIONS : Follow up small bowel obstruction. MEDICAL HISTORY : None. SURGICAL HISTORY : Colostomy. Nephrectomy, left. ENCOUNTER: Subsequent ACUITY: 2 weeks PAIN SCORE: 7/10 LOCATION: Bilateral Abdomen FINDINGS: 2 portable semierect views of the abdomen and pelvis were obtained and demonstrate interval placement of a nasogastric tube tip projected over the mid stomach. There are multiple loops of borderline dil ated air-containing small bowel in the mid and left abdomen. There are multiple surgical clips in the midabdomen. The patient is noted to be status post median sternotomy. There is no evidence of free a ir on this supine exam. Postsurgical changes are noted in the pelvis with screw plate fixation device . CONCLUSION: 1. Interval placement nasogastric tube with decreased gaseous distention stomach. 2. Bowel gas pattern remains abnormal with multiple loops of borderline dilated small bowel concernin g for small bowel obstruction. Abner Pablo MD on September 05, 2016 at 5:32 Board Certified Radiologist. This report was verified electronically.
[2016-09-05 06:53] LABS: MEAN CORPUSCULAR HEMOGLOBIN 24.5 PG (27.0-34.0); MEAN CORPUSCULAR HGB CONC 31.4 % (32.0-36.0); PLATELET COUNT 223 TH/MM3 (150-450); RED BLOOD COUNT 5.78 MIL/MM3 (4.50-5.90); RED CELL DISTRIBUTION WIDTH 18.5 % (11.6-17.2); REVIEW FLAG FINAL; WHITE BLOOD COUNT 9.4 TH/MM3 (4.0-11.0)
[2016-09-05 06:59] LABS: BICARBONATE 31.9 MEQ/L (21.0-32.0)
[2016-09-05 08:00] VITALS: BP 141/81; PULSE 68; RESP 17; TEMP 97.6; O2SAT 94
[2016-09-05 08:13] LABS: C. DIFF EPI 027 PRESUMPTIVE NEGATIVE (NEGATIVE); C. DIFF TOXIN PCR NEGATIVE (NEGATIVE)
[2016-09-05] MEDS: hydrALAZINE HCL 100 MG TAB PO SCH ×3 (08:33→16:40)
[2016-09-05] MEDS: amLODIPine BESYLATE 5 MG TAB PO SCH (08:33)
[2016-09-05] MEDS: PANTOPRAZOLE SODIUM 40 MG VIAL IVP SCH (08:34)
[2016-09-05] MEDS: D5-1/2 NS + KCL 40 MEQ INJ 1,000 ML IV SCH ×3 (08:35→16:41)
[2016-09-05] MEDS: COLLAGENASE OINT 30 GM TUBE TOPICAL SCH (08:35)
[2016-09-05] MEDS: HYDROCORTISONE 0.5% CREAM 30 GM TOPICAL SCH (08:35)
--- NOTE | 2016-09-05 09:02 | HHI.FPPN ---
Subjective Remarks Patient seen and examined this morning. No acute events overnight with vital signs stable. Patient states that he has become frustrated as his GI symptoms have not resolved, and reports that this is the longest it has taken to treat a bowel obstruction during his complicated history. He continues to have left upper quadrant distention with intermittent trials of clear liquids while NG tube clamped. He has been taking in ice chips without complication, however continues to have almost 4 L of NG tube output. His only other complaint is fullness in his left ear. He denies any fevers, chills, shortness of breath, or chest pain. (Bernard Cat MD R1) Objective Vitals Vital Signs Date Time Temp Pulse Resp B/P Pulse Ox O2 Delivery O2 Flow Rate FiO2 09/05/16 08:00 97.6 68 17 141/81 94 09/05/16 00:00 96.7 75 20 152/95 93 09/04/16 22:09 98.3 74 18 135/84 93 09/04/16 16:00 96.5 78 17 138/75 94 09/04/16 15:58 I/O 09/04/16 09/04/16 09/04/16 09/05/16 09/05/16 09/05/16 07:00 15:00 23:00 07:00 15:00 23:00 Intake Total 1563 ml 100 ml 240 ml 1280 ml Output Total 2700 ml 800 ml 3100 ml 1450 ml Balance -1137 ml -700 ml -2860 ml -170 ml Intake Oral 320 ml 0 ml 240 ml 480 ml IV Total 1243 ml 100 ml 800 ml Output Urine Total 500 ml 800 ml 300 ml 200 ml Stool Total 200 ml 250 ml Gastric Drainage Total 2000 ml 2800 ml 1000 ml # Bowel Movements 3 (Bernard Cat MD R1) Result Diagram: 09/05/16 0609/05/16 06 Objective Remarks GENERAL: Obese patient lying in bed, NG tube currently clamped to take by mouth medications with bilious fluid in tubing and suction canister. SKIN: Seborrheic dermatitis on frontal scalp. Chronic venous stasis changes most notable on RLE. 1 cm healing ulcer on right lateral thigh. Nonhealing left heel ulcer currently wrapped. HEENT: AT, NC with EOMI. MMM. No LAD or JVD appreciated. CARDIOVASCULAR: RRR with no MGR. RESPIRATORY: CTAB with no CRW. No increased WOB. GASTROINTESTINAL: Abdomen obese, soft, tenderness to palpation in the LUQ. Bowel sounds reduced. Colostomy bag in place with minimal stool output, soft. No redness of skin around colostomy bag. . No hepato-splenomegaly, or palpable masses. No guarding. Multiple appropriately healed surgical scars on ABD. MUSCULOSKELETAL: No movement or sensation in bilateral lower extremities. Right BKA. Left fifth toe amputation. NEUROLOGICAL: Awake and alert. Cranial nerves II through XII intact. Normal speech. (Bernard Cat MD R1) A/P Assessment and Plan 60-year-old male with a past medical history of spina bifida and multiple abdominal surgeries presents with small bowel obstruction. Discharge Planning Pending improvement of small bowel obstruction, tolerating diet, ability to pull the NG tube (Bernard Cat MD R1) Attending Attestation Patient seen and examined. Case reviewed and discussed with the resident team. Agree with plan of care as discussed with me and documented in the resident note. (Tami Ac MD) Problem List: (1) Small bowel obstruction Status: Acute Plan: Evidence of SBO with dilated loops of small bowel in the left abdomen with air-fluid levels on CT abdomen and pelvis. Upright x-ray shows stable SBO. Had bowel movements overnight, no vomiting overnight. -Gen. surgery consulted - appreciate recommendations -NG tube clamped intermittently to attempt liquid diet as tolerated, low threshold to restart suction for vomiting/distension -D5 half normal saline with 40 meQ KCl for hypernatremia, hypokalemia. -Morphine 4 mg IV every 4 hours pain 1 through 10 -Dilaudid 1 mg IV every 4 hours when necessary breakthrough pain -Oxycodone 20 mg by mouth every 4 hours as needed for pain -Tylenol 1 g every 6 hours scheduled for pain and hopes to avoid narcotics to avoid further constipation -Reglan for nausea/vomiting -Small bowel follow through 09/04: Minimal nonspecific small bowel dilation without obstruction. Examination is limited by patient's body habitus. -Abdominal x-ray 09/05: Interval placement NG tube with decreased gaseous distention and stomach. Bowel gas pattern remains abnormal with multiple loops of borderline dilated small bowel concerning for small bowel obstruction. (2) Dehydration Status: Acute Plan: Borderline high sodium -D5 half normal saline with 40 KCL at 150 mL/hr -Continue to monitor and replace electrolytes as needed (3) Acute on chronic kidney failure Status: Acute Plan: Baseline creatinine 1.84 in June 2014, currently back down to 1.98, improved. Appears to be acute on chronic CKD stage III. -Avoid nephrotoxic agents -Renally dose medications -IV Hydration (4) Decubitus ulcer Status: Chronic Plan: Presence of ulcer on right lateral thigh and left heel. Left heel ulcer is stage II with eschar. -Wound care consulted for management, appreciate recommendations -Recommend Podiatry consult for full thickness, 2.5X3cm L heel wound; appreciate recommendations -Non-surgical at this time. Recommend daily santyl dressing. Switch to betadine if it becomes macerated or boggy. (5) Chronic Medical Problems Status: Acute Plan: Hypertension: Resume amlodipine 5 mg by mouth daily and hydralazine 100 mg by mouth 3 times a day CAD: Holding aspirin 81 mg by mouth daily Chronic pain: Continue oxycodone 20 mg by mouth every 4 hours when necessary, morphine and Dilaudid when necessary as above Muscle spasms: Holding baclofen 10 mg by mouth 3 times a day Anemia: Holding ferrous sulfate PO (6) FEN/DVT PPX/GI PPX/Nursing Orders Status: Acute Plan: Fluids: D5 half normal saline with KCl 40 meQ at 150 mls/hr, monitor electrolytes closely Electrolytes: Will monitor and replace as needed Nutrition: Currently NG tube clamped with trial of clear liquids, low threshold for nothing by mouth and NG tube placed to suction DVT Prophylaxis: Heparin subcutaneous Q8h GI Prophylaxis: Protonix 40mg IV daily (Bernard Cat MD R1) Problem Qualifiers (1) Decubitus ulcer: Qualified Code: L89.159 - Decubitus ulcer of sacral region, unspecified ulcer stage Bernard Cat MD R1 Sep 05, 2016 09:02 Tami Ac MD Sep 05, 2016 11:03
[2016-09-05 12:00] VITALS: BP 157/76; PULSE 70; RESP 17; TEMP 96.7; O2SAT 95
--- NOTE | 2016-09-05 13:04 | HHI.PR ---
Subjective Subjective Notes No complaints; doing well with NG clamping Objective Vitals/I&O Vital Signs Date Time Temp Pulse Resp B/P Pulse Ox O2 Delivery O2 Flow Rate FiO2 09/05/16 12:00 96.7 70 17 157/76 95 09/04/16 07:44 Room Air Labs Laboratory Tests Test 09/05/16 09/05/16 02:35 06:06 Stool C. difficile Toxin (PCR) NEGATIVE Stl C. difficile Toxin PRESUMPTIVE Epiderm 027 NEGATIVE White Blood Count 9.4 Red Blood Count 5.78 Hemoglobin 14.2 Hematocrit 45.0 Mean Corpuscular Volume 78.0 Mean Corpuscular Hemoglobin 24.5 Mean Corpuscular Hemoglobin 31.4 Concent Red Cell Distribution Width 18.5 Platelet Count 223 Mean Platelet Volume 8.1 Sodium Level 143 Potassium Level 4.0 Chloride Level 104 Carbon Dioxide Level 31.9 Anion Gap 7 Blood Urea Nitrogen 31 Creatinine 2.30 Estimat Glomerular Filtration 29 Rate Random Glucose 100 Calcium Level 8.8 Date/Time Procedure Status Source Growth 09/02/16 22:52 Stool Occult Blood (ALLIE) - Final Complete Stool Stool HEMOCCULT POSITIVE Abdomen: Non-distended, Non-tender A/P Assessment and Plan Assessment and Plan 60 year old male with multiple medical problems with SBO -SBFT shows no obstruction -NGT to LIWS due to nausea; tolerating clamping now -Continue non operative treatment at this time Start Abner Lama MD Sep 05, 2016 13:04
[2016-09-05 16:00] VITALS: BP 147/85; PULSE 71; RESP 17; TEMP 97.4; O2SAT 96
[2016-09-05] MEDS: ONDANSETRON HCL 4 MG/2 ML VIAL IV PRN (16:40)
[2016-09-05] MEDS: FLUOCINOLONE ACETONIDE 0.01% CR 15 GM TUBE TOPICAL SCH (19:42)
[2016-09-05 20:00] VITALS: BP 158/80; PULSE 75; RESP 18; TEMP 96.7; O2SAT 95
[2016-09-05 23:54] VITALS: BP 145/86; PULSE 67; RESP 18; TEMP 98.1; O2SAT 96
[2016-09-06] MEDS: ACETAMINOPHEN 1000 MG/100 ML VIAL IV SCH ×5 (00:31→23:58)
[2016-09-06] MEDS: D5-1/2 NS + KCL 40 MEQ INJ 1,000 ML IV SCH ×4 (00:31→19:41)
[2016-09-06] MEDS: MORPHINE SULFATE 4 MG/ML INJ IV PRN ×4 (01:57→19:40)
[2016-09-06] MEDS: HEPARIN SODIUM - SQ 10,000 UNITS/ML VIAL SQ SCH ×3 (04:39→19:40)
[2016-09-06 05:11] LABS: MEAN CELL VOLUME 78.7 FL (80.0-100.0); MEAN CORPUSCULAR HEMOGLOBIN 23.8 PG (27.0-34.0); MEAN CORPUSCULAR HGB CONC 30.3 % (32.0-36.0); PLATELET COUNT 189 TH/MM3 (150-450); RED BLOOD COUNT 5.34 MIL/MM3 (4.50-5.90); RED CELL DISTRIBUTION WIDTH 18.1 % (11.6-17.2); REVIEW FLAG FINAL; WHITE BLOOD COUNT 8.4 TH/MM3 (4.0-11.0)
[2016-09-06 06:53] LABS: BICARBONATE 26.6 MEQ/L (21.0-32.0); POTASSIUM 4.9 MEQ/L (3.5-5.1)
[2016-09-06 08:00] VITALS: BP 138/90; PULSE 68; RESP 17; TEMP 96.7; O2SAT 95
--- NOTE | 2016-09-06 08:40 | HHI.PR ---
Subjective Subjective Notes no acute issues, continue ostomy output, current sxn due to nausea with clamp Objective Vitals/I&O Vital Signs Date Time Temp Pulse Resp B/P Pulse Ox O2 Delivery O2 Flow Rate FiO2 09/06/16 08:00 96.7 68 17 138/90 95 09/04/16 07:44 Room Air Labs Laboratory Tests Test 09/06/16 04:19 White Blood Count 8.4 Red Blood Count 5.34 Hemoglobin 12.7 Hematocrit 42.0 Mean Corpuscular Volume 78.7 Mean Corpuscular Hemoglobin 23.8 Mean Corpuscular Hemoglobin 30.3 Concent Red Cell Distribution Width 18.1 Platelet Count 189 Mean Platelet Volume 8.2 Sodium Level 139 Potassium Level 4.9 Chloride Level 106 Carbon Dioxide Level 26.6 Anion Gap 6 Blood Urea Nitrogen 36 Creatinine 2.16 Estimat Glomerular Filtration 31 Rate Random Glucose 93 Calcium Level 8.4 Date/Time Procedure Status Source Growth 09/02/16 22:52 Stool Occult Blood (ALLIE) - Final Complete Stool Stool HEMOCCULT POSITIVE Cardiovascular: Regular Lungs: Clear Abdomen: Other (soft mild ttp, ostomy pink with stool) A/P Assessment and Plan SBO, pt with second recurrence of SBO, high risk surgery candidate PLAN attempt clamp trial as tolerated clear diet non op mgnt Bartolo Batista MD Sep 06, 2016 08:40
--- NOTE | 2016-09-06 08:57 | HHI.FPPN ---
Subjective Remarks Patient seen and examined this morning. No acute events overnight. Patient reports that his ABD pain has continued, but has not been correlating with the trials of clamping his NG tube and liquid diet. He reports that he tolerated the liquids well, but the ABD pain continued throughout the day and night up to 6/10 which is elevated from his baseline. He has had liquid colostomy output. His only other complaint is BL hip pain which he reports is at his baseline due to his history of spina bifida with paraplegia. Otherwise he denies any fevers, chills, SOB, chest pain, V/D, or calf tenderness. (Bernard Cat MD R1) Objective Vitals Vital Signs Date Time Temp Pulse Resp B/P Pulse Ox O2 Delivery O2 Flow Rate FiO2 09/06/16 08:00 96.7 68 17 138/90 95 09/06/16 02:02 17 09/05/16 23:54 98.1 67 18 145/86 96 09/05/16 20:00 96.7 75 18 158/80 95 09/05/16 16:00 97.4 71 17 147/85 96 09/05/16 12:00 96.7 70 17 157/76 95 I/O 09/05/16 09/05/16 09/05/16 09/06/16 09/06/16 09/06/16 07:00 15:00 23:00 07:00 15:00 23:00 Intake Total 1280 ml 2091 ml 1059 ml 1546 ml Output Total 1450 ml 1150 ml 1650 ml 1900 ml Balance -170 ml 941 ml -591 ml -354 ml Intake Oral 480 ml 945 ml 240 ml 280 ml IV Total 800 ml 1146 ml 819 ml 1266 ml Output Urine Total 200 ml 50 ml 1000 ml 300 ml Stool Total 250 ml 100 ml 50 ml 0 ml Gastric Drainage Total 1000 ml 600 ml 1600 ml Drainage Total 1000 ml (Bernard Cat MD R1) Result Diagram: 09/06/1641809/06/16418 Objective Remarks GENERAL: Obese patient lying on his R side in bed, NG tube currently connected with approximately 200mL of bilious fluid in canister. SKIN: Seborrheic dermatitis on frontal scalp. Chronic venous stasis changes most notable on RLE. 1 cm healing ulcer on right lateral thigh. Nonhealing left heel ulcer currently wrapped. Sacrum examined with no obvious signs of new ulceration. HEENT: AT, NC with EOMI. MMM. No LAD or JVD appreciated. CARDIOVASCULAR: RRR with no MGR. RESPIRATORY: CTAB with no CRW. No increased WOB. GASTROINTESTINAL: Abdomen obese, soft, tenderness to palpation in the LUQ. Bowel sounds reduced. Colostomy bag in place with minimal liquid stool output. No redness of skin around colostomy bag. . No hepato-splenomegaly, or palpable masses. No guarding. Multiple appropriately healed surgical scars on ABD. MUSCULOSKELETAL: No movement or sensation in bilateral lower extremities. Right BKA. Left fifth toe amputation. NEUROLOGICAL: Awake and alert. Cranial nerves II through XII intact. Normal speech. (Bernard Cat MD R1) A/P Assessment and Plan 60-year-old male with a past medical history of spina bifida and multiple abdominal surgeries presents with small bowel obstruction. Discharge Planning Pending improvement of small bowel obstruction, tolerating diet, ability to pull the NG tube (Bernard Cat MD R1) Attending Attestation Patient seen and examined. Case reviewed and discussed with the resident team. Agree with plan of care as discussed with me and documented in the resident note. (Tami Ac MD) Problem List: (1) Small bowel obstruction Status: Acute Plan: Evidence of SBO with dilated loops of small bowel in the left abdomen with air-fluid levels on CT abdomen and pelvis. Upright x-ray shows stable SBO. Had bowel movements overnight, no vomiting overnight. -Gen. surgery consulted - appreciate recommendations -NG tube clamped intermittently to attempt liquid diet as tolerated, low threshold to restart suction for vomiting/distension -D5 half normal saline with 40 meQ KCl for hypernatremia, hypokalemia. -Morphine 4 mg IV every 4 hours pain 1 through 10 -Dilaudid 1 mg IV every 4 hours when necessary breakthrough pain -Oxycodone 20 mg by mouth every 4 hours as needed for pain -Tylenol 1 g every 6 hours scheduled for pain and hopes to avoid narcotics to avoid further constipation -Reglan for nausea/vomiting -Small bowel follow through 09/04: Minimal nonspecific small bowel dilation without obstruction. Examination is limited by patient's body habitus. -Abdominal x-ray 09/05: Interval placement NG tube with decreased gaseous distention and stomach. Bowel gas pattern remains abnormal with multiple loops of borderline dilated small bowel concerning for small bowel obstruction. (2) Dehydration Status: Acute Plan: Borderline high sodium -D5 half normal saline with 40 KCL at 150 mL/hr -Continue to monitor and replace electrolytes as needed (3) Acute on chronic kidney failure Status: Acute Plan: Baseline creatinine 1.84 in June 2014, currently back down to 1.98, improved. Appears to be acute on chronic CKD stage III. -Avoid nephrotoxic agents -Renally dose medications -IV Hydration (4) Decubitus ulcer Status: Chronic Plan: Presence of ulcer on right lateral thigh and left heel. Left heel ulcer is stage II with eschar. -Wound care consulted for management, appreciate recommendations -Recommend Podiatry consult for full thickness, 2.5X3cm L heel wound; appreciate recommendations -Non-surgical at this time. Recommend daily santyl dressing. Switch to betadine if it becomes macerated or boggy. (5) Chronic Medical Problems Status: Acute Plan: Hypertension: Resume amlodipine 5 mg by mouth daily and hydralazine 100 mg by mouth 3 times a day CAD: Holding aspirin 81 mg by mouth daily Chronic pain: Continue oxycodone 20 mg by mouth every 4 hours when necessary, morphine and Dilaudid when necessary as above Muscle spasms: Holding baclofen 10 mg by mouth 3 times a day Anemia: Holding ferrous sulfate PO (6) FEN/DVT PPX/GI PPX/Nursing Orders Status: Acute Plan: Fluids: D5 half normal saline with KCl 40 meQ at 150 mls/hr, monitor electrolytes closely Electrolytes: Will monitor and replace as needed Nutrition: Currently NG tube clamped with trial of clear liquids, low threshold for nothing by mouth and NG tube placed to suction DVT Prophylaxis: Heparin subcutaneous Q8h GI Prophylaxis: Protonix 40mg IV daily (Bernard Cat MD R1) Problem Qualifiers (1) Decubitus ulcer: Qualified Code: L89.159 - Decubitus ulcer of sacral region, unspecified ulcer stage Bernard Cat MD R1 Sep 06, 2016 08:57 Tami Ac MD Sep 06, 2016 14:37
[2016-09-06] MEDS: PANTOPRAZOLE SODIUM 40 MG VIAL IVP SCH (09:09)
[2016-09-06] MEDS: HYDROCORTISONE 0.5% CREAM 30 GM TOPICAL SCH (09:09)
[2016-09-06] MEDS: COLLAGENASE OINT 30 GM TUBE TOPICAL SCH (09:09)
[2016-09-06] MEDS: amLODIPine BESYLATE 5 MG TAB PO SCH (09:09)
[2016-09-06] MEDS: hydrALAZINE HCL 100 MG TAB PO SCH ×3 (09:09→16:52)
[2016-09-06 12:00] VITALS: BP 147/79; PULSE 70; RESP 18; TEMP 97.6; O2SAT 94
[2016-09-06] MEDS: METOCLOPRAMIDE HCL 10 MG/2 ML VIAL IV PUSH PRN (14:58)
[2016-09-06 16:00] VITALS: BP 131/79; PULSE 75; RESP 19; TEMP 97.1; O2SAT 95
[2016-09-06] MEDS: HYDROmorphone HCL PF 1 MG/ML VIAL IV PRN (16:59)
[2016-09-06] MEDS: FLUOCINOLONE ACETONIDE 0.01% CR 15 GM TUBE TOPICAL SCH (19:38)
[2016-09-06 20:00] VITALS: BP 116/80; PULSE 74; RESP 20; TEMP 98.1; O2SAT 96
[2016-09-07] VITALS: BP 134/69; PULSE 68; RESP 18; TEMP 96.9; O2SAT 97
[2016-09-07] MEDS: MORPHINE SULFATE 4 MG/ML INJ IV PRN ×3 (02:29→17:18)
[2016-09-07] MEDS: D5-1/2 NS + KCL 40 MEQ INJ 1,000 ML IV SCH ×4 (02:29→21:44)
[2016-09-07] MEDS: HEPARIN SODIUM - SQ 10,000 UNITS/ML VIAL SQ SCH ×3 (04:32→21:46)
[2016-09-07] MEDS: ACETAMINOPHEN 1000 MG/100 ML VIAL IV SCH ×3 (05:07→17:08)
[2016-09-07 05:33] LABS: HEMATOCRIT 43.4 % (39.0-51.0); MEAN CELL VOLUME 77.2 FL (80.0-100.0); MEAN CORPUSCULAR HEMOGLOBIN 23.8 PG (27.0-34.0); MEAN CORPUSCULAR HGB CONC 30.9 % (32.0-36.0); PLATELET COUNT 203 TH/MM3 (150-450); RED BLOOD COUNT 5.62 MIL/MM3 (4.50-5.90); RED CELL DISTRIBUTION WIDTH 17.9 % (11.6-17.2); REVIEW FLAG FINAL; WHITE BLOOD COUNT 8.4 TH/MM3 (4.0-11.0)
[2016-09-07 05:53] LABS: BICARBONATE 26.3 MEQ/L (21.0-32.0); POTASSIUM 5.1 MEQ/L (3.5-5.1)
[2016-09-07 08:00] VITALS: BP 128/78; PULSE 64; RESP 16; TEMP 97.9; O2SAT 94
[2016-09-07] MEDS: hydrALAZINE HCL 100 MG TAB PO SCH ×3 (09:14→17:08)
[2016-09-07] MEDS: amLODIPine BESYLATE 5 MG TAB PO SCH (09:14)
[2016-09-07] MEDS: PANTOPRAZOLE SODIUM 40 MG VIAL IVP SCH (09:14)
[2016-09-07] MEDS: COLLAGENASE OINT 30 GM TUBE TOPICAL SCH (09:17)
[2016-09-07] MEDS: HYDROCORTISONE 0.5% CREAM 30 GM TOPICAL SCH (09:17)
--- NOTE | 2016-09-07 09:38 | HHI.PR ---
Subjective Subjective Notes no acute issues, no nausea, +bowel fxn Objective Vitals/I&O Vital Signs Date Time Temp Pulse Resp B/P Pulse Ox O2 Delivery O2 Flow Rate FiO2 09/07/16 08:00 97.9 64 16 128/78 94 09/04/16 07:44 Room Air Labs Laboratory Tests Test 09/07/16 04:36 White Blood Count 8.4 Red Blood Count 5.62 Hemoglobin 13.4 Hematocrit 43.4 Mean Corpuscular Volume 77.2 Mean Corpuscular Hemoglobin 23.8 Mean Corpuscular Hemoglobin 30.9 Concent Red Cell Distribution Width 17.9 Platelet Count 203 Mean Platelet Volume 8.2 Sodium Level 141 Potassium Level 5.1 Chloride Level 107 Carbon Dioxide Level 26.3 Anion Gap 8 Blood Urea Nitrogen 32 Creatinine 2.15 Estimat Glomerular Filtration 32 Rate Random Glucose 96 Calcium Level 8.4 Date/Time Procedure Status Source Growth 09/02/16 22:52 Stool Occult Blood (ALLIE) - Final Complete Stool Stool HEMOCCULT POSITIVE Cardiovascular: Regular Lungs: Clear Abdomen: Other (soft mild ttp central) A/P Assessment and Plan SBO, pt with second recurrence of SBO, high risk surgery candidate PLAN d/c ng tube simethicone for gas clear diet non op mgnt Bartolo Batista MD Sep 07, 2016 09:38
[2016-09-07 12:00] VITALS: BP 149/79; PULSE 75; RESP 18; TEMP 99.3; O2SAT 96
--- NOTE | 2016-09-07 12:11 | HHI.FPPN ---
Subjective Remarks Patient seen and examined this morning by medical team. No acute events overnight with vital signs stable. Patient strongly requests that the NG tube be discontinued as he has started suffering from a sore throat he believes is due to the NG tube. He believes that most of his abdominal pain is due to gas and requests addition of simethicone to assist with this. Medical team thoroughly explained the risks involved with possible NG tube replacement pending clinical course after the NG tube was pulled. Patient stated he understood all risks and was agreeable to NG tube replacement pending his clinical course. Currently he has no abdominal pain and continues to pass mostly liquid stool with his colostomy bag in place. Otherwise he has no complaints in denies any fevers, chills, shortness of breath, or calf tenderness. (Bernard Cat MD R1) Objective Vitals Vital Signs Date Time Temp Pulse Resp B/P Pulse Ox O2 Delivery O2 Flow Rate FiO2 09/07/16 08:00 97.9 64 16 128/78 94 09/07/16 02:34 18 09/07/16 00:00 96.9 68 18 134/69 97 09/06/16 20:00 98.1 74 20 116/80 96 09/06/16 16:00 97.1 75 19 131/79 95 I/O 09/06/16 09/06/16 09/06/16 09/07/16 09/07/16 09/07/16 06:59 14:59 22:59 06:59 14:59 22:59 Intake Total 1546 ml 1393 ml 1176 ml 1510 ml Output Total 1900 ml 2500 ml 2450 ml 2400 ml Balance -354 ml -1107 ml -1274 ml -890 ml Intake Oral 280 ml 600 ml 380 ml 240 ml IV Total 1266 ml 793 ml 796 ml 1270 ml Output Urine Total 300 ml 1250 ml 1800 ml 1000 ml Stool Total 0 ml 50 ml 50 ml 0 ml Gastric Drainage Total 1600 ml 600 ml 1400 ml Drainage Total 1200 ml (Bernard Cat MD R1) Result Diagram: 09/07/166 09/07/16 0436 Objective Remarks GENERAL: Obese patient lying down in bed, NG tube currently connected with approximately 800mL of bilious fluid in canister. SKIN: Seborrheic dermatitis on frontal scalp. Chronic venous stasis changes most notable on RLE. 1 cm healing ulcer on right lateral thigh. Nonhealing left heel ulcer currently wrapped. HEENT: AT, NC with EOMI. MMM. No LAD or JVD appreciated. CARDIOVASCULAR: RRR with no MGR. RESPIRATORY: CTAB with no CRW. No increased WOB. GASTROINTESTINAL: Abdomen obese, soft, mild tenderness to palpation in the LUQ. Bowel sounds reduced, but present in all 4 quadrants. Colostomy bag in place with minimal liquid stool output. No redness of skin around colostomy bag. . No hepato-splenomegaly, or palpable masses. No guarding. Multiple appropriately healed surgical scars on ABD. MUSCULOSKELETAL: No movement or sensation in bilateral lower extremities. Right BKA. Left fifth toe amputation. NEUROLOGICAL: Awake and alert. Cranial nerves II through XII intact. Normal speech. (Bernard Cat MD R1) A/P Assessment and Plan 60-year-old male with a past medical history of spina bifida and multiple abdominal surgeries presents with small bowel obstruction. Discharge Planning Pending improvement of small bowel obstruction, tolerating diet, ability to pull the NG tube (Bernard Cat MD R1) Attending Attestation Patient seen and examined. Case reviewed and discussed with the resident team. Agree with plan of care as discussed with me and documented in the resident note. (Tami Ac MD) Problem List: (1) Small bowel obstruction Status: Acute Plan: Evidence of SBO with dilated loops of small bowel in the left abdomen with air-fluid levels on CT abdomen and pelvis. Upright x-ray shows stable SBO. Had bowel movements overnight, no vomiting overnight. -Gen. surgery consulted - appreciate recommendations -NG discontinued per patient's wishes; risk of discontinuation explained to patient who verbally understood. Low threshold to replace NG tube for nausea, vomiting, or abdominal distention. -Clear liquid diet as tolerated. -D5 half normal saline with 40 meQ KCl for hypernatremia, hypokalemia. -Morphine 4 mg IV every 4 hours pain 1 through 10 -Dilaudid 1 mg IV every 4 hours when necessary breakthrough pain -Oxycodone 20 mg by mouth every 4 hours as needed for pain -Tylenol 1 g every 6 hours scheduled for pain and hopes to avoid narcotics to avoid further constipation -Reglan every 8 hours for nausea/vomiting -Simethicone 40 mg 4 times a day -Small bowel follow through 09/04: Minimal nonspecific small bowel dilation without obstruction. Examination is limited by patient's body habitus. -Abdominal x-ray 09/05: Interval placement NG tube with decreased gaseous distention and stomach. Bowel gas pattern remains abnormal with multiple loops of borderline dilated small bowel concerning for small bowel obstruction. (2) Dehydration Status: Acute Plan: Borderline high sodium -D5 half normal saline with 40 KCL at 150 mL/hr -Continue to monitor and replace electrolytes as needed (3) Acute on chronic kidney failure Status: Acute Plan: Baseline creatinine 1.84 in June 2014, currently back down to 1.98, improved. Appears to be acute on chronic CKD stage III. -Avoid nephrotoxic agents -Renally dose medications -IV Hydration (4) Decubitus ulcer Status: Chronic Plan: Presence of ulcer on right lateral thigh and left heel. Left heel ulcer is stage II with eschar. -Wound care consulted for management, appreciate recommendations -Recommend Podiatry consult for full thickness, 2.5X3cm L heel wound; appreciate recommendations -Non-surgical at this time. Recommend daily santyl dressing. Switch to betadine if it becomes macerated or boggy. (5) Chronic Medical Problems Status: Acute Plan: Hypertension: Resume amlodipine 5 mg by mouth daily and hydralazine 100 mg by mouth 3 times a day CAD: Holding aspirin 81 mg by mouth daily Chronic pain: Continue oxycodone 20 mg by mouth every 4 hours when necessary, morphine and Dilaudid when necessary as above Muscle spasms: Holding baclofen 10 mg by mouth 3 times a day Anemia: Holding ferrous sulfate PO (6) FEN/DVT PPX/GI PPX/Nursing Orders Status: Acute Plan: Fluids: D5 half normal saline with KCl 40 meQ at 150 mls/hr, monitor electrolytes closely Electrolytes: Will monitor and replace as needed Nutrition: Clear liquid diet as tolerated DVT Prophylaxis: Heparin subcutaneous Q8h GI Prophylaxis: Protonix 40mg IV daily (Bernard Cat MD R1) Problem Qualifiers (1) Decubitus ulcer: Qualified Code: L89.159 - Decubitus ulcer of sacral region, unspecified ulcer stage Bernard Cat MD R1 Sep 07, 2016 12:11 Tami Ac MD Sep 07, 2016 13:48
[2016-09-07] MEDS: SIMETHICONE SUSP DROPS 40 MG/0.6 ML 30 ML BTL PO SCH ×3 (13:00→21:51)
[2016-09-07] MEDS: METOCLOPRAMIDE HCL 10 MG/2 ML VIAL IV PUSH SCH ×2 (13:03→21:47)
[2016-09-07] MEDS: HYDROmorphone HCL PF 1 MG/ML VIAL IV PRN ×2 (13:10→21:46)
[2016-09-07 16:00] VITALS: BP 133/81; PULSE 74; RESP 16; TEMP 97.2; O2SAT 94
[2016-09-07 20:00] VITALS: BP 139/69; PULSE 67; RESP 18; TEMP 97.4; O2SAT 97
[2016-09-07] MEDS: FLUOCINOLONE ACETONIDE 0.01% CR 15 GM TUBE TOPICAL SCH (21:00)
[2016-09-08] MEDS: ACETAMINOPHEN 1000 MG/100 ML VIAL IV SCH ×4 (00:22→17:34)
[2016-09-08] MEDS: MORPHINE SULFATE 4 MG/ML INJ IV PRN ×5 (00:22→20:21)
[2016-09-08 00:31] VITALS: BP 127/66; PULSE 62; RESP 18; TEMP 97.1; O2SAT 97
[2016-09-08] MEDS: HEPARIN SODIUM - SQ 10,000 UNITS/ML VIAL SQ SCH ×3 (04:50→20:18)
[2016-09-08] MEDS: METOCLOPRAMIDE HCL 10 MG/2 ML VIAL IV PUSH SCH ×3 (04:51→20:20)
[2016-09-08] MEDS: D5-1/2 NS + KCL 40 MEQ INJ 1,000 ML IV SCH (05:13)
[2016-09-08 08:00] VITALS: BP 140/74; PULSE 70; RESP 16; TEMP 97.7; O2SAT 94
[2016-09-08 08:50] LABS: HEMATOCRIT 42.3 % (39.0-51.0); MEAN CELL VOLUME 78.3 FL (80.0-100.0); MEAN CORPUSCULAR HEMOGLOBIN 24.2 PG (27.0-34.0); MEAN CORPUSCULAR HGB CONC 30.9 % (32.0-36.0); PLATELET COUNT 214 TH/MM3 (150-450); RED CELL DISTRIBUTION WIDTH 18.4 % (11.6-17.2); REVIEW FLAG FINAL; WHITE BLOOD COUNT 7.2 TH/MM3 (4.0-11.0)
--- NOTE | 2016-09-08 09:07 | HHI.FPPN ---
Subjective Remarks No acute events. NG tube was pulled yesterday. Thus far, he is tolerating a clear liquid diet. No nausea or vomiting. Has mild feeling of fullness in his abdomen. Had a couple liquid bowel movements. No abdominal pain. (Abner London MD R2) Objective Vitals Vital Signs Date Time Temp Pulse Resp B/P Pulse Ox O2 Delivery O2 Flow Rate FiO2 09/08/16 08:00 97.7 70 16 140/74 94 09/08/16 00:31 97.1 62 18 127/66 97 09/07/16 22:16 18 09/07/16 20:00 97.4 67 18 139/69 97 09/07/16 16:00 97.2 74 16 133/81 94 09/07/16 12:00 99.3 75 18 149/79 96 I/O 09/07/16 09/07/16 09/07/16 09/08/16 09/08/16 09/08/16 07:00 15:00 23:00 07:00 15:00 23:00 Intake Total 1510 ml 900 ml 280 ml 280 ml Output Total 2400 ml 1500 ml 830 ml 1140 ml Balance -890 ml -600 ml -550 ml -860 ml Intake Oral 240 ml 900 ml 280 ml 280 ml IV Total 1270 ml Output Urine Total 1000 ml 700 ml 380 ml 340 ml Stool Total 0 ml 450 ml 800 ml Gastric Drainage Total 1400 ml 800 ml # Bowel Movements 0 (Abner London MD R2) Result Diagram: 09/08/16 0839 09/07/16 0436 Objective Remarks GENERAL: Obese patient lying down in bed, NG tube out, no distress SKIN: Seborrheic dermatitis on frontal scalp. Chronic venous stasis changes most notable on RLE. 1 cm healing ulcer on right lateral thigh. Nonhealing left heel ulcer currently wrapped. HEENT: AT, NC with EOMI. MMM. No LAD or JVD appreciated. Left ear with cerumen impaction. CARDIOVASCULAR: RRR with no MGR. RESPIRATORY: CTAB with no CRW. No increased WOB. GASTROINTESTINAL: Abdomen obese, soft, mild tenderness to palpation in the LUQ. Bowel sounds reduced, but present in all 4 quadrants. Colostomy bag in place with minimal liquid stool output. No redness of skin around colostomy bag. . No hepato-splenomegaly, or palpable masses. No guarding. Multiple appropriately healed surgical scars on ABD. MUSCULOSKELETAL: No movement or sensation in bilateral lower extremities. Right BKA. Left fifth toe amputation. NEUROLOGICAL: Awake and alert. Cranial nerves II through XII intact. Normal speech. (Abner London MD R2) A/P Assessment and Plan 60-year-old male with a past medical history of spina bifida and multiple abdominal surgeries presents with small bowel obstruction. Discharge Planning Pending improvement of small bowel obstruction, tolerating diet, no nausea or vomiting (Abner London MD R2) Attending Attestation Patient seen and examined. Case reviewed and discussed with the resident team. Agree with plan of care as discussed with me and documented in the resident note. Patient requests a new 20 [place] Jean catheter to insert himself. ( Tami Ac MD) Problem List: (1) Small bowel obstruction Status: Acute Plan: Evidence of SBO with dilated loops of small bowel in the left abdomen with air-fluid levels on CT abdomen and pelvis. Upright x-ray shows stable SBO. Had bowel movements overnight, no nausea/vomiting overnight. Tolerating clear liquids currently. -Small bowel follow through 09/04: Minimal nonspecific small bowel dilation without obstruction. Examination is limited by patient's body habitus. Abdominal x-ray 09/05: Interval placement NG tube with decreased gaseous distention and stomach. Bowel gas pattern remains abnormal with multiple loops of borderline dilated small bowel concerning for small bowel obstruction. -Gen. surgery consulted - appreciate recommendations -NG discontinued. Low threshold to replace NG tube for nausea, vomiting, or abdominal distention. -Clear liquid diet as tolerated. -D5 half normal saline with 40 meQ KCl for hypernatremia, hypokalemia. -Morphine 4 mg IV every 4 hours pain 1 through 10 -Dilaudid 1 mg IV every 4 hours when necessary breakthrough pain -Oxycodone 20 mg by mouth every 4 hours as needed for pain -Tylenol 1 g every 6 hours scheduled for pain and hopes to avoid narcotics to avoid further constipation -Reglan every 8 hours for nausea/vomiting -Simethicone 40 mg 4 times a day (2) Dehydration Status: Acute Plan: -D5 half normal saline with 40 KCL at 150 mL/hr -Continue to monitor and replace electrolytes as needed (3) Acute on chronic kidney failure Status: Acute Plan: Baseline creatinine 1.84 in June 2014, currently 2.15. Appears to be acute on chronic CKD stage III. -Avoid nephrotoxic agents -Renally dose medications -IV Hydration (4) Decubitus ulcer Status: Chronic Plan: Presence of ulcer on right lateral thigh and left heel. Left heel ulcer is stage II with eschar. -Wound care consulted for management, appreciate recommendations -Recommend Podiatry consult for full thickness, 2.5X3cm L heel wound; appreciate recommendations -Non-surgical at this time. Recommend daily santyl dressing. Switch to betadine if it becomes macerated or boggy. (5) Chronic Medical Problems Status: Acute Plan: Hypertension: Amlodipine 5 mg by mouth daily and hydralazine 100 mg by mouth 3 times a day CAD: Holding aspirin 81 mg by mouth daily Chronic pain: Continue oxycodone 20 mg by mouth every 4 hours when necessary, morphine and Dilaudid when necessary as above Muscle spasms: Holding baclofen 10 mg by mouth 3 times a day Anemia: Holding ferrous sulfate PO (6) FEN/DVT PPX/GI PPX/Nursing Orders Status: Acute Plan: Fluids: D5 half normal saline with KCl 40 meQ at 150 mls/hr, monitor electrolytes closely Electrolytes: Will monitor and replace as needed Nutrition: Clear liquid diet as tolerated DVT Prophylaxis: Heparin subcutaneous Q8h GI Prophylaxis: Protonix 40mg IV daily (Abner London MD R2) Problem Qualifiers (1) Decubitus ulcer: Qualified Code: L89.159 - Decubitus ulcer of sacral region, unspecified ulcer stage Abner London MD R2 Sep 08, 2016 09:07 Tami Ac MD Sep 08, 2016 16:24
[2016-09-08 09:13] LABS: BICARBONATE 21.7 MEQ/L (21.0-32.0)
[2016-09-08] MEDS: hydrALAZINE HCL 100 MG TAB PO SCH ×3 (09:19→17:35)
[2016-09-08] MEDS: amLODIPine BESYLATE 5 MG TAB PO SCH (09:19)
[2016-09-08] MEDS: PANTOPRAZOLE SODIUM 40 MG VIAL IVP SCH (09:19)
[2016-09-08] MEDS: HYDROCORTISONE 0.5% CREAM 30 GM TOPICAL SCH (09:20)
[2016-09-08] MEDS: COLLAGENASE OINT 30 GM TUBE TOPICAL SCH (09:20)
[2016-09-08] MEDS: SIMETHICONE SUSP DROPS 40 MG/0.6 ML 30 ML BTL PO SCH ×4 (09:20→20:19)
[2016-09-08] MEDS ORDERED: FUROSEMIDE 40 MG TAB PO ONE (10:00)
[2016-09-08] MEDS: SODIUM CHLOR 0.9% 1000 ML INJ 1,000 ML IV SCH ×3 (10:35→20:22)
[2016-09-08 12:00] VITALS: BP 162/81; PULSE 71; RESP 16; TEMP 97.6; O2SAT 95
[2016-09-08] MEDS: CARBAMIDE PEROXIDE 6.5% OTIC SOLN 15 ML BTL LEFT EAR SCH ×2 (12:01→20:19)
[2016-09-08] MEDS: HYDROmorphone HCL PF 1 MG/ML VIAL IV PRN ×2 (12:17→17:35)
--- NOTE | 2016-09-08 13:53 | EKG ---
Date Performed: 09/08/2016 Time Performed: 10:07:05 PTAGE: 60 years EKG: Sinus rhythm NONSPECIFIC ST & T-WAVE ABNORMALITY BORDERLINE ECG COMPARED TO PRIOR ELECTROCARDIOGRAM, Rate has inc reased. PREVIOUS TRACING : 08/29/2016 15.53 DOCTOR: Hudson Morales Interpretating Date/Time 09/08/2016 13:52:51
--- NOTE | 2016-09-08 14:27 | HHI.PR ---
Subjective Subjective Notes Resting in bed Had multiple liquid stools in colostomy bag Objective Vitals/I&O Vital Signs Date Time Temp Pulse Resp B/P Pulse Ox O2 Delivery O2 Flow Rate FiO2 09/08/16 08:00 97.7 70 16 140/74 94 09/04/16 07:44 Room Air Labs Laboratory Tests Test 09/08/16 08:39 White Blood Count 7.2 Red Blood Count 5.40 Hemoglobin 13.1 Hematocrit 42.3 Mean Corpuscular Volume 78.3 Mean Corpuscular Hemoglobin 24.2 Mean Corpuscular Hemoglobin 30.9 Concent Red Cell Distribution Width 18.4 Platelet Count 214 Mean Platelet Volume 8.2 Sodium Level 138 Potassium Level 6.0 Chloride Level 108 Carbon Dioxide Level 21.7 Anion Gap 8 Blood Urea Nitrogen 31 Creatinine 2.24 Estimat Glomerular Filtration 30 Rate Random Glucose 102 Calcium Level 8.2 Cardiovascular: Regular Lungs: Clear Abdomen: Other (multiple healed scars on abdomen; colostomy collection bag in place with minimal liquid stool (just recently changed); abdomen soft non tender ) Extremities: Other (LEFT heel with chronic wound ) A/P Assessment and Plan 60 year old male with multiple medical problems with SBO -Advance to full liquids + protein shakes TID -Continue non operative treatment at this time Attending Statement patient seen at bedside no issues tolerating fulls ostomy output Attestation The exam, history, and the medical decision-making described in the above note were completed with the assistance of the mid-level provider. I reviewed and agree with the findings presented. I attest that I had a [id number] encounter with the patient on the same day, and personally performed and documented my assessment and findings in the medical record. Miley Franco Sep 08, 2016 14:27 Bartolo Batista MD Sep 17, 2016 18:48
[2016-09-08 15:47] LABS: BICARBONATE 20.1 MEQ/L (21.0-32.0)
[2016-09-08 15:49] LABS: POTASSIUM 5.4 MEQ/L (3.5-5.1)
[2016-09-08 16:00] VITALS: BP 118/68; PULSE 72; RESP 18; TEMP 97.6; O2SAT 94
[2016-09-08 20:00] VITALS: BP 140/83; PULSE 70; RESP 20; TEMP 97.4; O2SAT 97
[2016-09-08] MEDS: FLUOCINOLONE ACETONIDE 0.01% CR 15 GM TUBE TOPICAL SCH (20:19)
[2016-09-09] MEDS: ACETAMINOPHEN 1000 MG/100 ML VIAL IV SCH ×4 (00:04→18:37)
[2016-09-09] MEDS: HYDROmorphone HCL PF 1 MG/ML VIAL IV PRN ×3 (01:46→18:48)
[2016-09-09 04:00] VITALS: BP 128/73; PULSE 62; RESP 20; TEMP 97.3; O2SAT 96
[2016-09-09] MEDS: HEPARIN SODIUM - SQ 10,000 UNITS/ML VIAL SQ SCH ×3 (04:27→21:28)
[2016-09-09] MEDS: MORPHINE SULFATE 4 MG/ML INJ IV PRN ×4 (04:28→21:31)
[2016-09-09] MEDS: METOCLOPRAMIDE HCL 10 MG/2 ML VIAL IV PUSH SCH ×3 (04:44→21:26)
[2016-09-09 06:44] LABS: BICARBONATE 22.3 MEQ/L (21.0-32.0); MAGNESIUM 1.7 MG/DL (1.5-2.5); POTASSIUM 4.9 MEQ/L (3.5-5.1)
--- NOTE | 2016-09-09 07:33 | HHI.PR ---
Subjective Subjective Notes tolerated 2000 in full liq diet, no vomiting, +liquid stool output Objective Vitals/I&O Vital Signs Date Time Temp Pulse Resp B/P Pulse Ox O2 Delivery O2 Flow Rate FiO2 09/09/16 04:00 97.3 62 20 128/73 96 Labs Laboratory Tests Test 09/08/16 09/08/16 09/08/16 09/09/16 08:39 14:42 18:39 04:08 White Blood Count 7.2 Red Blood Count 5.40 Hemoglobin 13.1 Hematocrit 42.3 Mean Corpuscular Volume 78.3 Mean Corpuscular Hemoglobin 24.2 Mean Corpuscular Hemoglobin 30.9 Concent Red Cell Distribution Width 18.4 Platelet Count 214 Mean Platelet Volume 8.2 Sodium Level 138 137 137 Potassium Level 6.0 5.4 4.8 4.9 Chloride Level 108 110 108 Carbon Dioxide Level 21.7 20.1 22.3 Anion Gap 8 7 7 Blood Urea Nitrogen 31 30 28 Creatinine 2.24 2.10 2.15 Estimat Glomerular Filtration 30 32 32 Rate Random Glucose 102 94 76 Calcium Level 8.2 8.2 7.9 Phosphorus Level 4.0 Magnesium Level 1.7 Cardiovascular: Regular Lungs: Clear Abdomen: Other (soft mild ttp, non distended, ostomy pink, stool) A/P Assessment and Plan SBO, pt with second recurrence of SBO, high risk surgery candidate PLAN full liquid transition to soft solid today non op mgnt d/c planning if tolerating soft diet Bartolo Batista MD Sep 09, 2016 07:33
[2016-09-09 08:00] VITALS: BP 126/67; PULSE 66; RESP 14; TEMP 97.4; O2SAT 93
[2016-09-09] MEDS: PANTOPRAZOLE SODIUM 40 MG VIAL IVP SCH (08:17)
[2016-09-09] MEDS: hydrALAZINE HCL 100 MG TAB PO SCH ×3 (08:21→18:34)
[2016-09-09] MEDS: amLODIPine BESYLATE 5 MG TAB PO SCH (08:21)
[2016-09-09] MEDS: CARBAMIDE PEROXIDE 6.5% OTIC SOLN 15 ML BTL LEFT EAR SCH ×2 (08:24→21:27)
[2016-09-09] MEDS: SIMETHICONE SUSP DROPS 40 MG/0.6 ML 30 ML BTL PO SCH ×4 (08:24→21:25)
[2016-09-09] MEDS: COLLAGENASE OINT 30 GM TUBE TOPICAL SCH (08:24)
[2016-09-09] MEDS: SODIUM CHLOR 0.9% 1000 ML INJ 1,000 ML IV SCH (08:25)
[2016-09-09] MEDS: HYDROCORTISONE 0.5% CREAM 30 GM TOPICAL SCH (08:25)
--- NOTE | 2016-09-09 10:37 | HHI.FPPN ---
Subjective Remarks No acute events. Patient now eating a soft diet. Tolerating diet ok. Has some mild nausea, no vomiting. No feeling of fullness. Has liquid stools in bag and gas. No abdominal pain. (Abner London MD R2) Objective Vitals Vital Signs Date Time Temp Pulse Resp B/P Pulse Ox O2 Delivery O2 Flow Rate FiO2 09/09/16 08:00 97.4 66 14 126/67 93 09/09/16 04:00 97.3 62 20 128/73 96 09/08/16 20:00 97.4 70 20 140/83 97 09/08/16 16:00 97.6 72 18 118/68 94 09/08/16 12:47 20 09/08/16 12:31 20 09/08/16 12:00 97.6 71 16 162/81 95 I/O 09/08/16 09/08/16 09/08/16 09/09/16 09/09/16 09/09/16 07:00 15:00 23:00 07:00 15:00 23:00 Intake Total 280 ml 1760 ml 1508 ml 1380 ml Output Total 1140 ml 1750 ml 2500 ml 1650 ml Balance -860 ml 10 ml -992 ml -270 ml Intake Oral 280 ml 800 ml 720 ml 480 ml IV Total 960 ml 788 ml 900 ml Output Urine Total 340 ml 1500 ml 1600 ml 800 ml Stool Total 800 ml 250 ml 900 ml 850 ml (Abner London MD R2) Result Diagram: 09/08/16 0839 09/09/16 0408 Objective Remarks GENERAL: Obese patient lying down in bed, NG tube out, no distress SKIN: Seborrheic dermatitis on frontal scalp. Chronic venous stasis changes most notable on RLE. 1 cm healing ulcer on right lateral thigh. Nonhealing left heel ulcer currently wrapped. HEENT: AT, NC with EOMI. MMM. No LAD or JVD appreciated. Left ear with cerumen impaction. CARDIOVASCULAR: RRR with no MGR. RESPIRATORY: CTAB with no CRW. No increased WOB. GASTROINTESTINAL: Abdomen obese, soft, mild tenderness to palpation in the LUQ. Bowel sounds reduced, but present in all 4 quadrants. Colostomy bag in place with minimal liquid stool output. No redness of skin around colostomy bag. . No hepato-splenomegaly, or palpable masses. No guarding. Multiple appropriately healed surgical scars on ABD. MUSCULOSKELETAL: No movement or sensation in bilateral lower extremities. Right BKA. Left fifth toe amputation. NEUROLOGICAL: Awake and alert. Cranial nerves II through XII intact. Normal speech. (Abner London MD R2) A/P Assessment and Plan 60-year-old male with a past medical history of spina bifida and multiple abdominal surgeries presents with small bowel obstruction. Discharge Planning Pending improvement of small bowel obstruction, tolerating diet, no nausea or vomiting (Abner London MD R2) Attending Attestation Patient seen and examined. Case reviewed and discussed with the resident team. Agree with plan of care as discussed with me and documented in the resident note. (Tami Ac MD) Problem List: (1) Small bowel obstruction Status: Acute Plan: History of spina bifida with multiple abdominal surgeries, presented with SBO. Now tolerating soft diet. -Gen. surgery consulted - appreciate recommendations -NG discontinued. Low threshold to replace NG tube for nausea, vomiting, or abdominal distention. -Soft diet as tolerated. -PO fluids -Reglan every 8 hours for nausea/vomiting -Simethicone 40 mg 4 times a day (2) Acute on chronic kidney failure Status: Acute Plan: Baseline creatinine 1.84 in June 2014, currently 2.15. Appears to be acute on chronic CKD stage III. -Avoid nephrotoxic agents -Renally dose medications -Good hydration (3) Decubitus ulcer Status: Chronic Plan: Presence of ulcer on right lateral thigh and left heel. Left heel ulcer is stage II with eschar. -Wound care consulted for management, appreciate recommendations -Recommend Podiatry consult for full thickness, 2.5X3cm L heel wound; appreciate recommendations -Non-surgical at this time. Recommend daily santyl dressing. Switch to betadine if it becomes macerated or boggy. (4) Chronic Medical Problems Status: Acute Plan: Hypertension: Amlodipine 5 mg by mouth daily and hydralazine 100 mg by mouth 3 times a day CAD: Holding aspirin 81 mg by mouth daily Muscle spasms: Holding baclofen 10 mg by mouth 3 times a day Anemia: Holding ferrous sulfate PO (5) FEN/DVT PPX/GI PPX/Nursing Orders Status: Acute Plan: Fluids: PO fluids Electrolytes: Will monitor and replace as needed Nutrition: Soft diet as tolerated DVT Prophylaxis: Heparin subcutaneous Q8h GI Prophylaxis: Protonix 40mg IV daily (Abner London MD R2) Problem Qualifiers (1) Decubitus ulcer: Qualified Code: L89.159 - Decubitus ulcer of sacral region, unspecified ulcer stage Abner London MD R2 Sep 09, 2016 10:37 Tami Ac MD Sep 09, 2016 11:56
--- NOTE | 2016-09-09 11:07 | HHI.FF ---
Face to Face Verification Diagnosis: (1) Small bowel obstruction Physical Therapy Order: Evaluate and Treat Occupational Therapy Order: Evaluate and Treat Home Health Nursing Order: Medical education Signs/symptoms of disease process Medication education-adverse effect Wound care and dressing changes Jean catheter maintenance Home Health Aide Order: To Assist In: Bathing and personal care, vinyl hanger and meal prep I have seen patient Primitivo Drew on 09/09/16. My clinical findings support the need for the requested home health care services because: Ltd mobility - disease progression Patient has SOB Deconditioned w/ increased weakness Limited ability to care for self High risk of falls I certify that my clinical findings support that this patient is homebound because: Unsteady gait/balance [id number]-[id number] bed/chair Poor cardiac reserve Bernard Cat MD R1 Sep 09, 2016 11:07
[2016-09-09 12:00] VITALS: BP 143/69; PULSE 64; RESP 14; TEMP 98.6; O2SAT 95
--- NOTE | 2016-09-09 15:24 | RADRPT ---
EXAM DATE/TIME: 09/09/2016 14:07 [facility] COMPARISON: No previous studies available for comparison. INDICATIONS : Left shoulder pain. MEDICAL HISTORY : Cardiovascular disease. Hypertension SURGICAL HISTORY : Pelvic. Femur. Bilateral rotator cuff. ENCOUNTER: Subsequent ACUITY: 2 weeks PAIN SCORE: 7/10 LOCATION: Left shoulder. FINDINGS: Degenerative changes are noted involving the left glenohumeral and acromioclavicular joints. There i s no acute fracture or dislocation of the left shoulder. CONCLUSION: 1. Degenerative changes involving the left acromioclavicular and glenohumeral joints. 2. No acute fracture or dislocation. Eugene Moon MD on September 09, 2016 at 15:14 Board Certified Radiologist. This report was verified electronically.
[2016-09-09 16:00] VITALS: BP 117/69; PULSE 73; RESP 16; TEMP 97.8; O2SAT 95
[2016-09-09] MEDS: FLUOCINOLONE ACETONIDE 0.01% CR 15 GM TUBE TOPICAL SCH (21:00)
[2016-09-09 21:22] VITALS: BP 115/52; PULSE 77; RESP 18; TEMP 97.3; O2SAT 96
[2016-09-10] MEDS: ACETAMINOPHEN 1000 MG/100 ML VIAL IV SCH ×3 (00:35→11:44)
[2016-09-10] MEDS: HYDROmorphone HCL PF 1 MG/ML VIAL IV PRN ×3 (02:03→13:15)
[2016-09-10] MEDS: HEPARIN SODIUM - SQ 10,000 UNITS/ML VIAL SQ SCH ×2 (04:13→11:44)
[2016-09-10] MEDS: METOCLOPRAMIDE HCL 10 MG/2 ML VIAL IV PUSH SCH ×2 (04:13→13:08)
[2016-09-10] MEDS: MORPHINE SULFATE 4 MG/ML INJ IV PRN (04:15)
[2016-09-10 08:00] VITALS: BP 143/61; PULSE 65; RESP 20; TEMP 97.7; O2SAT 98
[2016-09-10] MEDS: amLODIPine BESYLATE 5 MG TAB PO SCH (08:39)
[2016-09-10] MEDS: hydrALAZINE HCL 100 MG TAB PO SCH ×2 (08:39→13:08)
[2016-09-10] MEDS: PANTOPRAZOLE SODIUM 40 MG VIAL IVP SCH (08:40)
[2016-09-10] MEDS: CARBAMIDE PEROXIDE 6.5% OTIC SOLN 15 ML BTL LEFT EAR SCH (08:41)
[2016-09-10] MEDS: SIMETHICONE SUSP DROPS 40 MG/0.6 ML 30 ML BTL PO SCH ×2 (08:41→13:09)
[2016-09-10] MEDS: HYDROCORTISONE 0.5% CREAM 30 GM TOPICAL SCH (08:41)
[2016-09-10] MEDS: COLLAGENASE OINT 30 GM TUBE TOPICAL SCH (08:42)
--- NOTE | 2016-09-10 10:25 | HHI.FPPN ---
Subjective Remarks Pt seen and examined this morning. No acute events overnight. Pt has been afebrile. He denies chest pain, shortness of breath. He continues to endorse occasional abdominal pain, this is stable and not worsening. He reports that his stool is becoming more solidified. Yesterday he started eating a soft diet and he has chris tolerating this well. Overall he feels as if he is improving. ( Yasmine Rios MD R2) Objective Vitals Vital Signs Date Time Temp Pulse Resp B/P Pulse Ox O2 Delivery O2 Flow Rate FiO2 09/10/16 08:00 97.7 65 20 143/61 98 09/09/16 21:22 97.3 77 18 115/52 96 09/09/16 16:00 97.8 73 16 117/69 95 09/09/16 12:00 98.6 64 14 143/69 95 I/O 09/09/16 09/09/16 09/09/16 09/10/16 09/10/16 09/10/16 07:00 15:00 23:00 07:00 15:00 23:00 Intake Total 1380 ml 2214 ml 148 ml 302 ml Output Total 1650 ml 2700 ml Balance -270 ml -486 ml 148 ml 302 ml Intake Oral 480 ml 800 ml IV Total 900 ml 1414 ml 148 ml 302 ml Output Urine Total 800 ml 1950 ml Stool Total 850 ml 750 ml (Yasmine Rios MD R2) Result Diagram: 09/08/16 0839 09/09/16 0408 Objective Remarks GENERAL: Obese patient lying down in bed, in no acute distress SKIN: Seborrheic dermatitis on frontal scalp. Chronic venous stasis changes most notable on RLE. 1 cm healing ulcer on right lateral thigh. Nonhealing left heel ulcer currently wrapped. HEENT: AT, NC with EOMI. MMM. No JVD appreciated. CARDIOVASCULAR: RRR with no MGR. RESPIRATORY: Anterior lung rubalcava auscultated, CTAB with no wheezes, rales or rhonchi. No increased WOB. GASTROINTESTINAL: Abdomen obese, soft, mild tenderness to palpation in the LUQ and RLQ. Active bowel sounds in all 4 quadrants. Colostomy bag in place with minimal stool output. No redness of skin around colostomy bag. No guarding. Multiple appropriately healed surgical scars on ABD. MUSCULOSKELETAL: No movement or sensation in bilateral lower extremities. Right BKA. Left fifth toe amputation. NEUROLOGICAL: Awake and alert. Cranial nerves II through XII intact. Normal speech. (Yasmine Rios MD R2) A/P Assessment and Plan 60-year-old male with a past medical history of spina bifida and multiple abdominal surgeries presents with small bowel obstruction. Discharge Planning Likely later today or tomorrow as abdominal pain is stable and he has been tolerating soft diet. sdw Dr. Cat wdw Dr. Ac (Yasmine Rios MD R2) Attending Attestation Patient seen and examined. Case reviewed and discussed with the resident team. Agree with plan of care as discussed with me and documented in the resident note. (Tami Ac MD) Problem List: (1) Small bowel obstruction Status: Acute Plan: History of spina bifida with multiple abdominal surgeries, presented with SBO. Now tolerating soft diet. -Gen. surgery consulted - appreciate recommendations -NG discontinued, low threshold to replace NG tube for nausea, vomiting, or abdominal distention. -Soft diet as tolerated. -PO fluids -Reglan every 8 hours for nausea/vomiting -Simethicone 40 mg 4 times a day (2) Acute on chronic kidney failure Status: Acute Plan: Baseline creatinine 1.84 in June 2014, 2.15 on 09/09/16. Appears to be acute on chronic CKD stage III. -Avoid nephrotoxic agents -Renally dose medications -Good hydration (3) Decubitus ulcer Status: Chronic Plan: Presence of ulcer on right lateral thigh and left heel. Left heel ulcer is stage II with eschar. -Wound care consulted for management, appreciate recommendations -Recommend Podiatry consult for full thickness, 2.5X3cm L heel wound; appreciate recommendations -Non-surgical at this time. Recommend daily santyl dressing. Switch to betadine if it becomes macerated or boggy. (4) Chronic Medical Problems Status: Acute Plan: Hypertension: Amlodipine 5 mg by mouth daily and hydralazine 100 mg by mouth 3 times a day CAD: Holding aspirin 81 mg by mouth daily Muscle spasms: Holding baclofen 10 mg by mouth 3 times a day Anemia: Holding ferrous sulfate PO (5) FEN/DVT PPX/GI PPX/Nursing Orders Status: Acute Plan: Fluids: PO fluids Electrolytes: Will monitor and replace as needed Nutrition: Soft diet as tolerated DVT Prophylaxis: Heparin subcutaneous Q8h, to be discontinued after discharge GI Prophylaxis: Protonix 40mg IV daily, to be converted to PO at time of discharge. (Yasmine Rios MD R2) Problem Qualifiers (1) Decubitus ulcer: Qualified Code: L89.159 - Decubitus ulcer of sacral region, unspecified ulcer stage Yasmine Rios MD R2 Sep 10, 2016 10:25 Tami Ac MD Sep 11, 2016 08:07
[2016-09-10 12:00] VITALS: BP 138/64; PULSE 67; RESP 20; TEMP 97.7; O2SAT 97
--- NOTE | 2016-09-10 12:06 | HHI.PR ---
Subjective Subjective Notes Awaiting visit from vascular ultrasound technologist Concerned because stool in colostomy is liquid Objective Vitals/I&O Vital Signs Date Time Temp Pulse Resp B/P Pulse Ox O2 Delivery O2 Flow Rate FiO2 09/10/16 08:00 97.7 65 20 143/61 98 Cardiovascular: Regular Lungs: Clear Abdomen: Other (colostomy with liquid stool; abdomen soft ) Extremities: Other (LEFT foot wound ) A/P Assessment and Plan 60 year old male with multiple medical problems with SBO -Tolerating regular diet -Continue to monitor colostomy output -Continue non operative treatment at this time -GS will sign off; please call with questions Attending Statement patient seen at bedside no issues will s/o available if needed Attestation The exam, history, and the medical decision-making described in the above note were completed with the assistance of the mid-level provider. I reviewed and agree with the findings presented. I attest that I had a [id number] encounter with the patient on the same day, and personally performed and documented my assessment and findings in the medical record. Miley Franco Sep 10, 2016 12:06 Bartolo Batista MD Sep 17, 2016 19:06
[2016-09-10] MEDS ORDERED: SIME40DR PO (13:23)
[2016-09-10] MEDS ORDERED: ZOFR4TAB3 SL (13:23)
[2016-09-10] MEDS ORDERED: PROT40TA PO (13:23)
[2016-09-10 15:00] VITALS: TEMP 96.8
[2016-09-10] MEDS ORDERED: OXYC-395 PO (15:08)
--- NOTE | 2016-09-17 13:20 | HHI.DCPOC ---
Discharge Care Plan Diagnosis: (1) Small bowel obstruction Goals to Promote Your Health * To prevent worsening of your condition and complications * To maintain your health at the optimal level Directions to Meet Your Goals Take your medications as prescribed Follow your dietary instruction Follow activity as directed Keep your appointments as scheduled Take your immunizations and boosters as scheduled If your symptoms worsen call your PCP, if no PCP go to Urgent Care Center or Emergency Room Smoking is Dangerous to Your Health. Avoid second hand smoke Call the 24-hour hour crisis hotline for domestic abuse at Bernard Cat MD R1 Sep 17, 2016 13:20
--- NOTE | 2016-09-17 13:36 | HHI.DS ---
Discharge Summary Admission Date Aug 29, 2016 at 18:41 Discharge Date: Sep 10, 2016 Admitting Diagnosis Small bowel obstruction; leukocytosis; UTI (1) Small bowel obstruction Diagnosis: Principal Plan: History of spina bifida with multiple abdominal surgeries, presented with SBO. Now tolerating soft diet. -Gen. surgery consulted - appreciate recommendations -NG discontinued, low threshold to replace NG tube for nausea, vomiting, or abdominal distention. -Soft diet as tolerated. -PO fluids -Reglan every 8 hours for nausea/vomiting -Simethicone 40 mg 4 times a day (2) Acute on chronic kidney failure Diagnosis: Principal Plan: Baseline creatinine 1.84 in June 2014, 2.15 on 09/09/16. Appears to be acute on chronic CKD stage III. -Avoid nephrotoxic agents -Renally dose medications -Good hydration (3) Decubitus ulcer Diagnosis: Principal Plan: Presence of ulcer on right lateral thigh and left heel. Left heel ulcer is stage II with eschar. -Wound care consulted for management, appreciate recommendations -Recommend Podiatry consult for full thickness, 2.5X3cm L heel wound; appreciate recommendations -Non-surgical at this time. Recommend daily santyl dressing. Switch to betadine if it becomes macerated or boggy. (4) Chronic Medical Problems Diagnosis: Secondary Plan: Hypertension: Amlodipine 5 mg by mouth daily and hydralazine 100 mg by mouth 3 times a day CAD: Holding aspirin 81 mg by mouth daily Muscle spasms: Holding baclofen 10 mg by mouth 3 times a day Anemia: Holding ferrous sulfate PO (5) FEN/DVT PPX/GI PPX/Nursing Orders Diagnosis: Principal Plan: Fluids: PO fluids Electrolytes: Will monitor and replace as needed Nutrition: Soft diet as tolerated DVT Prophylaxis: Heparin subcutaneous Q8h, to be discontinued after discharge GI Prophylaxis: Protonix 40mg IV daily, to be converted to PO at time of discharge. Brief History Patient is a 60-year-old male with a past medical history of HTN, CAD s/p CABG 2, spina bifida, multiple abdominal surgeries with colostomy placement , left nephrectomy with urinary diversion pouch, right foot amputation, and L1- L2 paraplegia that presents to the [place] ED with a chief complaint of abdominal pain and decreased stool output from his colostomy bag. Patient states that this abdominal pain began yesterday in the evening. He describes the pain as sharp, constant nonradiating, 8/10 pain located in his left lower quadrant. Patient states that he had been having normal bowel movements which normally occur about 6 hours after he eats. His last normal bowel movement was yesterday morning. Last night he ate a strawberry smoothie which he vomited this morning. He states that the pain and decreased stool output is very similar to when he had a small bowel obstruction in 2015. He was admitted at the [facility] at that time. Patient denies other symptoms, no fever or chills, no shortness of breath or chest pain. PCP is Dr. Susan Barker in [place]. PE at Discharge GENERAL: Obese patient lying down in bed, in no acute distress SKIN: Seborrheic dermatitis on frontal scalp. Chronic venous stasis changes most notable on RLE. 1 cm healing ulcer on right lateral thigh. Nonhealing left heel ulcer currently wrapped. HEENT: AT, NC with EOMI. MMM. No JVD appreciated. CARDIOVASCULAR: RRR with no MGR. RESPIRATORY: Anterior lung rubalcava auscultated, CTAB with no wheezes, rales or rhonchi. No increased WOB. GASTROINTESTINAL: Abdomen obese, soft, mild tenderness to palpation in the LUQ and RLQ. Active bowel sounds in all 4 quadrants. Colostomy bag in place with minimal stool output. No redness of skin around colostomy bag. No guarding. Multiple appropriately healed surgical scars on ABD. MUSCULOSKELETAL: No movement or sensation in bilateral lower extremities. Right BKA. Left fifth toe amputation. NEUROLOGICAL: Awake and alert. Cranial nerves II through XII intact. Normal speech. Hospital Course Patient was admitted for small bowel obstruction diagnosed via clinical exam and CT of abdomen and pelvis. General surgery was consulted who recommended no surgical procedure at this time and medical management. NG tube was placed with nothing by mouth order. His hydration status and electrolytes were monitored and repleted as needed. His nausea and vomiting were treated with multiple medications including Reglan, simethicone, and Zofran. Patient was started on normal saline at 175 mL per hour (maintenance fluids) for both dehydration and to assist with a rise in his creatinine from his baseline. His decubitus ulcer was managed by wound care as well as evaluated by podiatry who recommended continued medical care. Patient went through multiple trials of NG tube clamping and liquid diet by mouth. On hospital day 9 patient requested his NG tube to be pulled as he believed that it was irritating his nasopharynx and esophagus. He was then placed on clear liquid diet of which he tolerated. His pain began to decrease and started to have bowel output via his colostomy. On hospital day 12, the patient was tolerating a regular diet and was cleared by both general surgery and the medical team for discharge. He was then discharged home with home health service on 09/10. He was advised to follow-up with his PCP in 1 week with a follow-up basic metabolic profile to evaluate his electrolyte and renal status. He was given prescriptions for Zofran, oxycodone, Protonix, and simethicone to assist with his nausea/vomiting and pain control. At the time of discharge the patient understood his appropriate follow-up and medications and verbally agreed to the medical plan. Pt Condition on Discharge: Stable Discharge Disposition: Disch w/ Home Health Serv Discharge Instructions DIET: Follow Instructions for: As Tolerated, No Restrictions Activities you can perform: Regular-No Restrictions Other Activity Instructions: Patient is paraplegic with R BKA. Follow up Referrals: PCP Follow-up - 1 Week New Orders: BASIC METABOLIC PROF - 1 Week New Medications: Ondansetron Odt (Zofran Odt) 4 Mg Tab 4 MG SL Q8HR PRN Nausea/Vomiting #30 Ref 0 TAB Pantoprazole (Protonix) 40 Mg Tab 40 MG PO DAILY Reflux #30 Ref 0 TAB Oxycodone (Oxycodone) 10 Mg Tab 20 MG PO Q4H PRN PAIN 1-10 #30 TAB Simethicone (Gas Relief) 20 Mg/0.3 Ml Vic 40 MG PO QID #1 Ref 1 BOTTLE Continued Medications: Amlodipine (Amlodipine) 5 Mg Tab 5 MG PO DAILY Blood Pressure Management #30 Ref 0 TAB Ascorbic Acid (Ascorbic Acid) 500 Mg Tab 1000 MG PO DAILY Nutritional Supplement TAB Aspirin DR (Aspirin EC) 81 Mg Tabdr 81 MG PO DAILY Ref 0 TAB Calcitriol (Calcitriol) 0.25 Mcg Cap 0.25 MCG PO DAILY Calcium Supplement #30 Ref 0 CAP Cyanocobalamin (Vitamin B-12) 1,000 Mcg Tab 1000 MCG PO DAILY Nutritional Supplement #1 Ref 0 BOTTLE Desonide Topical (Desonide Topical) 0.05% Cream 1 APPLIC TOPICAL HS Ref 0 GM Docusate Sodium (Docusate Sodium) 100 Mg Cap 100 MG PO BID PRN CONSTIPATION #60 Ref [address] (Ferrous Sulfate DR) 325 Mg Tabdr 325 MG PO TID Hydralazine (Hydralazine) 100 Mg Tab 100 MG PO TID Take with meals Blood Pressure Management Ref 0 TAB Hydrocortisone Topical (Hydrocortisone Topical) 0.5% Cream 1 APPLIC TOPICAL DAILY Apply to face Rash/Inflammation #30 Ref 0 GM Metoprolol Succinate ER 24 HR (Toprol XL) 25 Mg Tab 25 MG PO DAILY #30 Ref 0 TAB Multiple Vitamin (Multiple Vitamin) 1 Tab 1 TAB PO DAILY Nutritional Supplement Ref 0 TAB Discontinued Medications: Baclofen (Baclofen) 10 Mg Tab 10 MG PO TID Muscle Spasm Ref 0 TAB Bernard Cat MD R1 Sep 17, 2016 13:36
== END 2016-09-10 18:01 | DRG 389 ==
LOC: NEPC 15:31 → NEDA 18:41 → N07B 22:31
PROVIDERS: ADMIT Family Medicine; ATTEND Family Medicine
DX: K56.5 Intestinal adhesions [bands] with obstruction (postinfection) (principal); G82.20 Paraplegia, unspecified; E87.0 Hyperosmolality and hypernatremia; N17.9 Acute kidney failure, unspecified; L89.219 Pressure ulcer of right hip, unspecified stage; N18.3 Chronic kidney disease, stage 3 (moderate); Z68.42 Body mass index [BMI] 45.0-49.9, adult; E86.0 Dehydration; Q05.9 Spina bifida, unspecified; I25.10 Atherosclerotic heart disease of native coronary artery without angina pectoris; I12.9 Hypertensive chronic kidney disease with stage 1 through stage 4 chronic kidney disease, or unspecified chronic kidney disease; M19.90 Unspecified osteoarthritis, unspecified site; D63.8 Anemia in other chronic diseases classified elsewhere; E66.9 Obesity, unspecified; G62.9 Polyneuropathy, unspecified; G89.29 Other chronic pain; L89.622 Pressure ulcer of left heel, stage 2; E87.6 Hypokalemia; Z89.431 Acquired absence of right foot; Z90.5 Acquired absence of kidney; Z93.3 Colostomy status; Z95.1 Presence of aortocoronary bypass graft; Z95.5 Presence of coronary angioplasty implant and graft; Z79.82 Long term (current) use of aspirin; I73.9 Peripheral vascular disease, unspecified
CPT/HCPCS: 51702; 73030; 74000; 74176; 74250; 76937; 80048; 80053; 81001; 82272; 83036; 83605; 83690; 83735; 84100; 84132; 85007; 85025; 85027; 85610; 85730; 87040; 87086; 87493; 87641; 93005; 96365; 96375; C9113; J0131; J0696; J1170; J1644; J2270; J2405; J2765; J3480; J7030; J7050; J7070

== ENCOUNTER 2016-10-18 12:01 | Inpatient (IN) | payer MEDICARE, OTHER ==
[~2016-10-18] VITALS: Ht 165.1 cm; Wt 125.0 kg
[2016-10-18] VITALS (9 sets, daily range): BP systolic 93–149; BP diastolic 56–115; PULSE 70–107; RESP 15–30; TEMP 97.8–98.3; O2SAT 92–100
[~2016-10-18 12:01] MED LIST changes: +AMLO5TAB2 PO; +ASCO500T PO; -DESO0.0560 TOP; +DESO0.0560 TOPICAL; +DOCU100C PO; -ED B10TA OR; -FENO160T2 OR; +FERR325T2 PO; +HYDR-3801 PO; -HYDRA25 PO; -HYDRO.5%T TOP; +HYDRO.5%T TOPICAL; -LIPI20TA PO; -METO50CR PO; -MULT-65 PO; +MULTTAB67 PO; -NIAC500 OR; -OMEP20TA39 PO; +OXYC-395 PO; +OXYC-396 PO; -OXYC5 PO; -PERI8.6T PO; +PROT40TA PO; +SIME40DR PO; -SIME80CH OR; +TOPR25TA PO; -VITA100017 PO; +ZOFR4TAB3 SL; -[UNRECOGNIZED DRUG - CODE] OR
[2016-10-18] MEDS ORDERED: OXYC30TA PO (12:34)
--- NOTE | 2016-10-18 12:42 | PD ---
HPI Chief Complaint: Respiratory Distress Time Seen by Provider: 12:10 Travel History International Travel<30 days: No Contact w/Intl Traveler<30days: No Traveled to known affect area: No History of Present Illness HPI This patient complains of shortness of breath. Started yesterday morning. Duration 28 hours. Severity is moderate to severe. No alleviating factors. He has no history of lung disease and has never smoked. He denies fever or chest pain. He has numerous severe chronic medical problems. He was recently hospitalized here For bowel obstruction which resolved nonoperatively. Denies history of blood clot or blood thinners. He arrives critically ill and was immediately placed on BiPAP for respiratory distress PFSH Past Medical History Anemia: Yes Arthritis: Yes Autoimmune Disease: No Cancer: No Cardiac Catheterization: Yes Cardiovascular Problems: Yes High Cholesterol: Yes Chest Pain: Yes Coronary Artery Disease: Yes Diabetes: No Endocrine: No Gastrointestinal Disorders: Yes Genitourinary: Yes ([place] POUCH) Hypertension: Yes Immune Disorder: No Implanted Vascular Access Dvce: Yes Musculoskeletal: Yes (PARAPALEGIC) Neurologic: Yes (PARAPALEGIC) Psychiatric: No Reproductive: No Respiratory: Yes Renal Failure: Yes (CRI) Thyroid Disease: No Past Surgical History Abdominal Surgery: Yes ([place] pouch, appendectomy) Appendectomy: Yes Body Medical Devices: VALERIE LEFT FEMUR, BAND AROUND PELVIS AND HIP Cardiac Surgery: Yes (Coronary Artery Bypass) Cholecystectomy: Yes Coronary Artery Bypass Graft: Yes (DOUBLE BYPASS 2000) Coronary Stent: Yes (1) Genitourinary Surgery: Yes (urinary diversion, left nephrectomy) Joint Replacement: No Pacemaker: No Tonsillectomy: Yes Other Surgery: Yes (C5-C6 FUSION, C7 DISCECTOMY 10/27/12) Social History Alcohol Use: No Tobacco Use: No Substance Use: No Allergies-Medications (Allergen,Severity, Reaction): Coded Allergies: Compazine (Verified Allergy, Severe, MUSCLE CONTRACTURES, 08/29/16) Contrast Media (Verified Allergy, Severe, Anaphylaxis, 08/29/16) Thorazine (Verified Allergy, Severe, MUSCLE CONTRACTURES, 08/29/16) *MDRO Multi-Drug Resistant Organism (Verified Adverse Reaction, Unknown, MRSA, 09/03/16) 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 Reported Meds & Prescriptions Reported Meds & Active Scripts Active Protonix (Pantoprazole Sodium) 40 Mg Tab 40 Mg PO DAILY Zofran Odt (Ondansetron Odt) 4 Mg Tab 4 Mg SL Q8HR PRN Gas Relief (Simethicone) 20 Mg/0.3 Ml Vic 40 Mg PO QID Reported Oxycodone (Oxycodone HCl) 30 Mg Tab 30 Mg PO Q4HR PRN Ascorbic Acid 500 Mg Tab 1,000 Mg PO DAILY Aspirin EC (Aspirin) 81 Mg Tabdr 81 Mg PO DAILY Calcitriol 0.25 Mcg Cap 0.25 Mcg PO DAILY Vitamin B-12 (Cyanocobalamin) 1,000 Mcg Tab 1,000 Mcg PO DAILY Hydrocortisone Topical (Hydrocortisone) 0.5% Cream 1 Applic TOPICAL DAILY Apply to face Hydralazine (Hydralazine HCl) 100 Mg Tab 100 Mg PO TID Take with meals Toprol XL (Metoprolol Succinate) 25 Mg Tab 25 Mg PO DAILY Multiple Vitamin 1 Tab 1 Tab PO DAILY Docusate Sodium 100 Mg Cap 100 Mg PO BID PRN Ferrous Sulfate DR (Ferrous Sulfate) 325 Mg Tabdr 325 Mg PO TID Amlodipine (Amlodipine Besylate) 5 Mg Tab 5 Mg PO DAILY Desonide Topical (Desonide) 0.05% Cream 1 Applic TOPICAL HS Review of Systems General / Constitutional: No: Fever Eyes: No: Visual changes HENT: No: Headaches Cardiovascular: No: Chest Pain or Discomfort Respiratory: Positive: Shortness of Breath Gastrointestinal: No: Abdominal Pain Genitourinary: No: Dysuria Musculoskeletal: No: Pain Skin: No Rash Neurologic: No: Weakness Psychiatric: No: Depression Endocrine: No: Polydipsia Hematologic/Lymphatic: No: Easy Bruising Physical Exam Narrative GENERAL: Chronically ill-appearing obese patient in respiratory distress. SKIN: Focused skin assessment reveals no rash and nodules. Skin is Warm and dry. HEAD: Atraumatic. Normocephalic. EYES: Pupils equal and round. No scleral icterus. No injection or drainage. ENT: No nasal bleeding or discharge. Mucous membranes pink and moist. NECK: Trachea midline. No JVD. CARDIOVASCULAR: Regular rate and rhythm. No murmur appreciated. RESPIRATORY: Positive accessory muscle use. Clear to auscultation. Breath sounds equal bilaterally. GASTROINTESTINAL: Abdomen soft, non-tender, nondistended. Hepatic and splenic margins not palpable. MUSCULOSKELETAL: Has had transmetatarsal amputation of the right foot. No clubbing. No cyanosis. Mild edema left foot and ankle region. NEUROLOGICAL: Awake and alert. No obvious cranial nerve deficits. Motor grossly within normal limits. Normal speech. PSYCHIATRIC: Appropriate mood and affect; insight and judgment normal. Data Data Last Documented VS Vital Signs Date Time Temp Pulse Resp B/P Pulse Ox O2 Delivery O2 Flow Rate FiO2 10/18/16 14:39 98 BiPAP 40 10/18/16 12:56 4.00 10/18/16 12:06 107 30 10/18/16 12:03 97.8 149/115 Orders Iv Access Insert/Monitor (10/18/16 12:27) Chest, Single Ap (10/18/16 ) Electrocardiogram (10/18/16 ) Complete Blood Count With Diff (10/18/16 12:27) Basic Metabolic Panel (Bmp) (10/18/16 12:27) Prothrombin Time / Inr (Pt) (10/18/16 12:27) Act Partial Throm Time (Ptt) (10/18/16 12:27) Oxygen Administration (10/18/16 12:27) Clinical Laboratory Director / Telemetry JENNY.Q8H (10/18/16 12:27) Protein Corrected Calcium(Pcc) (10/18/16 12:40) Urinary Catheter Insert/Apply (10/18/16 13:35) Arterial Blood Gas (Abg) (10/18/16 ) Sodium Bicarbonate 8.4% Inj (Sodium Bica (10/18/16 14:30) Ua Includes Microscopic (10/18/16 14:27) Urine For Eosinophils (10/18/16 14:27) Basic Metabolic Panel (Bmp) (10/18/16 14:27) Sodium, Random Urine (10/18/16 14:27) Creatinine, Random Urine (10/18/16 14:27) Specimen To Be Collected PRN (10/18/16 14:27) Specimen To Be Collected PRN (10/18/16 14:27) Us Kidney/Renal/Bladder (10/18/16 ) Consult Nephrology (10/18/16 ) Dextrose 5% In Wate... W/Sodium Bicarbon (10/18/16 15:00) Inpatient Certification (10/18/16 14:27) Resp Ezpap/Pep Therapy (10/18/16 14:27) Resp Acapella/Pep/Chest Vibra (10/18/16 14:27) Resp Incentive Spirometry (10/18/16:) Bedside Glucose JENNY.AC&HS&03 (10/18/16 14:) Blood Glucose Goal (Criteria) (10/18/16:) Hypoglycemia 51 - 69 Mg/Dl (10/18/16 14:) Hypoglycemia 50 Mg/Dl Or < (10/18/16:) Notify Dr: Other (10/18/16:) Dextrose 50% In Heather (Vial) Inj (D50w (Vi (10/18/16 14:30) Insulin Human Reg Supp Scale (Novolin R (10/18/16 16:00) Blood Culture (10/18/16:) Sputum Culture And Gram Stain (10/18/16:) Urinalysis - C+S If Indicated (10/18/16:) Specimen To Be Collected PRN (10/18/16 14:) Cbc No Diff, Includes Plts (10/19/16 05:00) Cbc No Diff, Includes Plts (10/20/16 05:00) Cbc No Diff, Includes Plts (10/21/16 05:00) Cbc No Diff, Includes Plts (10/22/16 05:00) Cbc No Diff, Includes Plts (10/23/16 05:00) Cbc No Diff, Includes Plts (10/24/16 05:00) Cbc No Diff, Includes Plts (10/25/16 05:00) Basic Metabolic Panel (Bmp) (10/19/16 05:00) Basic Metabolic Panel (Bmp) (10/20/16 05:00) Basic Metabolic Panel (Bmp) (10/21/16 05:00) Basic Metabolic Panel (Bmp) (10/22/16 05:00) Basic Metabolic Panel (Bmp) (10/23/16 05:00) Basic Metabolic Panel (Bmp) (10/24/16 05:00) Basic Metabolic Panel (Bmp) (10/25/16 05:00) Phosphorus (Po4) (10/18/16 14:27) Phosphorus (Po4) (10/19/16 06:00) Phosphorus (Po4) (10/20/16 06:00) Phosphorus (Po4) (10/21/16 06:00) Phosphorus (Po4) (10/22/16 06:00) Phosphorus (Po4) (10/23/16 06:00) Phosphorus (Po4) (10/24/16 06:00) Phosphorus (Po4) (10/25/16 06:00) Lactic Acid Sepsis Protocol (10/18/16 14:27) Sodium Bicarbonate 8.4% Inj (Sodium Bica (10/18/16 14:45) Ct Abd/Pel W/O Iv Contrast (10/18/16 ) Admit Order (Ed Use Only) (10/18/16 14:33) Labs Laboratory Tests Test 10/18/16 10/18/16 12:40 14:05 White Blood Count 20.2 TH/MM3 Red Blood Count 3.99 MIL/MM3 Hemoglobin 9.9 GM/DL Hematocrit 32.7 % Mean Corpuscular Volume 81.9 FL Mean Corpuscular Hemoglobin 24.8 PG Mean Corpuscular Hemoglobin 30.2 % Concent Red Cell Distribution Width 19.5 % Platelet Count 310 TH/MM3 Mean Platelet Volume 6.8 FL Neutrophils (%) (Auto) % Lymphocytes (%) (Auto) % Monocytes (%) (Auto) % Eosinophils (%) (Auto) % Basophils (%) (Auto) % Neutrophils # (Auto) TH/MM3 Lymphocytes # (Auto) TH/MM3 Monocytes # (Auto) TH/MM3 Eosinophils # (Auto) TH/MM3 Basophils # (Auto) TH/MM3 CBC Comment AUTO DIFF Differential Total Cells 100 Counted Neutrophils % (Manual) 90 % Band Neutrophils % 4 % Monocytes % 4 % Neutrophils # (Manual) 19.4 TH/MM3 Metamyelocytes 2 % Nucleated Red Blood Cells 1 /100 WBC Differential Comment FINAL DIFF MANUAL Platelet Estimate NORMAL Platelet Morphology Comment NORMAL Ovalocytes 1+ Acanthocytes OCC Prothrombin Time 14.0 SEC Prothromb Time International 1.3 RATIO Ratio Activated Partial 34.9 SEC Thromboplast Time Sodium Level 132 MEQ/L Potassium Level 4.0 MEQ/L Chloride Level 106 MEQ/L Carbon Dioxide Level 6.9 MEQ/L Anion Gap 19 MEQ/L Blood Urea Nitrogen 86 MG/DL Creatinine 6.33 MG/DL Estimat Glomerular Filtration 9 ML/MIN Rate Random Glucose 152 MG/DL Calcium Level 7.1 MG/DL Protein Corrected Calcium 6.9 MG/DL Total Protein 7.6 GM/DL Blood Gas Puncture Site RT RADIAL Blood Gas Patient Temperature 98.6 Blood Gas HCO3 4 mmol/L Blood Gas Base Excess -25.1 mmol/L Blood Gas Oxygen Saturation 95 % Arterial Blood pH 6.99 Arterial Blood Partial 18 mmHg Pressure CO2 Arterial Blood Partial 125 mmHG Pressure O2 Arterial Blood Oxygen Content 14.1 Vol % Arterial Blood 0.7 % Carboxyhemoglobin Arterial Blood Methemoglobin 1.2 % Blood Gas Hemoglobin 10.4 G/DL Oxygen Delivery Device NASAL CANNULA Blood Gas Liter Flow 3 L/M MDM Medical Decision Making Medical Screen Exam Complete: Yes Emergency Medical Condition: Yes Medical Record Reviewed: Yes Differential Diagnosis Differential diagnosis includes COPD, asthma, pneumonia, bronchitis, PE. Narrative Course I have reviewed the patient's electronic medical record. Reviewed his extensive hospitalization from last month IV placed CBC is normal Metabolic profile shows considerable renal failure on top of some chronic baseline renal insufficiency. Bicarbonate is very low. I reviewed his chest x-ray which shows some atelectasis but basically negative I placed him on BiPAP initially due to severe respiratory distress This uses work of breathing and is distressed calm down I placed him on 6 L then weaned him down to 4 L nasal cannula Extended cardiac monitoring shows sinus rhythm without ectopy I reviewed his EKG which shows no acute ST elevation Coagulation studies are normal ABG reveals significant acidemia with pH of 6.99 and bicarbonate of 4. His respiratory distress was due to hyperventilation to blow off CO2 from severe acidemia He is critically ill with pH of 6.99 and renal failure This patient does straight catheterization of a [place] pouch 4 times a day and he did it this morning without any change per his report I reviewed with director corporate security Dr. Ojeda who will admit I reviewed with Dr. Goldman orthotic/prosthetic clinician on-call who recommended bolus of bicarbonate as well as bicarbonate drip and reassess pH and 6 hours to make sure it isn't better and if not then he will require dialysis As noted potassium is normal Critical Care Narrative Aggregate critical care time was 40 minutes. Time to perform other separately billable procedures was not included in the critical care time. My time did not include minutes spent treating any other patients simultaneously or on activities that did not directly contribute to the patient's treatment. The services I provided to this patient were to treat and/or prevent clinically significant deterioration that could result in: Cardiopulmonary arrest, respiratory failure, hypoxemic brain injury I provided critical care services requiring my management, as noted below: Chart data review, documentation time, medication orders and management, vital sign assessments/reviewing monitor data, ordering and reviewing lab tests, ordering and interpreting/reviewing x-rays and diagnostic studies, care of the patient and discussion of the patient with the admitting physicians. Diagnosis Primary Impression: Acute kidney injury Additional Impressions: Acute on chronic kidney failure Qualified Code: N17.9 - Acute renal failure superimposed on chronic kidney disease, unspecified CKD stage, unspecified acute renal failure type Acidemia Respiratory distress Admitting Information Admitting Physician Requests: Admit Daniel Ledezma MD Oct 18, 2016 12:42
[2016-10-18 13:01] LABS: HEMATOCRIT 32.7 % (39.0-51.0); MEAN CELL VOLUME 81.9 FL (80.0-100.0); MEAN CORPUSCULAR HEMOGLOBIN 24.8 PG (27.0-34.0); MEAN CORPUSCULAR HGB CONC 30.2 % (32.0-36.0); PLATELET COUNT 310 TH/MM3 (150-450); RED BLOOD COUNT 3.99 MIL/MM3 (4.50-5.90); RED CELL DISTRIBUTION WIDTH 19.5 % (11.6-17.2); WHITE BLOOD COUNT 20.2 TH/MM3 (4.0-11.0)
[2016-10-18 13:03] LABS: HEMO FLAGS AUTO DIFF
[2016-10-18 13:14] LABS: APTT (PATIENT) 34.9 SEC (24.3-30.1); INTERNATIONAL NORMALIZED RATIO 1.3 RATIO
[2016-10-18 13:33] LABS: BANDS 4 % (0-6); CORRECTED NUCLEATED RBC 1 /100 WBC (0-0); METAMYELOCYTES 2 % (0-1); NEUTROPHIL # MANUAL DIFF 19.4 TH/MM3 (1.8-7.7); POLYS (SEG NEUTROPHILS) 90 % (16-70); WBC DIFF SAMPLE 100
[2016-10-18 13:34] LABS: ACANTHOCYTES OCC (NORMAL); OVALOCYTES 1+ (NORMAL)
[2016-10-18 13:35] LABS: PLATELET ESTIMATE SMEAR NORMAL (NORMAL); PLATELET MORPHOLOGY NORMAL (NORMAL); SCAN/DIFF FINAL DIFF MANUAL
--- NOTE | 2016-10-18 13:37 | RADRPT ---
EXAM DATE/TIME: 10/18/2016 12:44 [facility] COMPARISON: No previous studies available for comparison. INDICATIONS : Short of breath. MEDICAL HISTORY : None. SURGICAL HISTORY : CABG. Fusion, cervical. ENCOUNTER: Initial ACUITY: 3 days PAIN SCORE: 8/10 LOCATION: Bilateral chest FINDINGS: There is evidence for prior median sternotomy. Slight cardiomegaly seen. Focal consolidation is not s een. There may be slight atelectasis in both lung bases. CONCLUSION: Possible mild bibasilar atelectasis. Deborah Dean MD on October 18, 2016 at 13:33 Board Certified Radiologist. This report was verified electronically.
[2016-10-18 13:45] LABS: BICARBONATE 6.9 MEQ/L (21.0-32.0)
[2016-10-18 13:51] LABS: CALCIUM-PROTEIN CORRECTED 6.9 MG/DL (8.5-10.1)
[2016-10-18 14:15] LABS: BLOOD GAS BASE EXCESS -25.1 mmol/L (-2-2); BLOOD GAS CARBOXYHEMOGLOBIN 0.7 % (0-4); BLOOD GAS HCO3 4 mmol/L (22-26); BLOOD GAS METHEMOGLOBIN 1.2 % (0-2); BLOOD GAS O2 HGB SATURATION 95 % (90-100); BLOOD GAS OXYGEN CONTENT 14.1 Vol % (12.0-20.0); BLOOD GAS PCO2 18 mmHg (38-42); BLOOD GAS PO2 125 mmHG (61-120); BLOOD GAS TOTAL HGB 10.4 G/DL (12.0-16.0); TEMP CORR TO 98.6
[2016-10-18 14:16] LABS: CRITICAL VALUE YES; DRAW SITE RT RADIAL; LITER FLOW 3 L/M; NUMBER OF ARTERIAL PUNCTURES 1; OXYGEN DEVICE NASAL CANNULA; STAT YES; ULNAR PULSE PRESENT
[2016-10-18] MEDS ORDERED: SODIUM BICARBONATE 8.4% INJ 50 MEQ/50 ML SYR IV PUSH ONE ×2 (14:30→14:45)
[2016-10-18] MEDS ORDERED: DEXTROSE 50% IN WATER 50 ML VIAL(D50) IV PUSH PRN (14:30)
[2016-10-18] MEDS: SODIUM BICARBONATE 8.4% INJ 150 MEQ in DEXTROSE 5% IN WATE 1000ML INJ 1,000 ML IV SCH ×4 (15:21→20:55)
[2016-10-18] MEDS: INSULIN NovoLIN REGULAR SUPPLEMENTAL SCALE SQ SCH ×2 (15:54→20:50)
--- NOTE | 2016-10-18 16:22 | HHI.HP ---
[facility] Service Critical Care Medicine Primary Care Physician Non-Staff Admission Diagnosis renal failure, acidemia, resp distress Diagnosis: Chief Complaint: shortness of breath Travel History International Travel<30 Days: No Contact w/Intl Traveler <30 Da: No Traveled to Known Affected Are: No History of Present Illness This is a 61-year-old male with a past history of paraplegia who had a recent hospitalization less than month ago for partial small bowel obstruction resolved medically without surgical intervention. He presents with a 2 day history of shortness of breath that has been worsening. He has no history of lung disease. He has never had any shortness of breath problems in the past. He was found to have a severe anion gap metabolic acidosis with a pH of 6.9 and a base deficit of 25. In addition, he has a new severe acute renal failure. He denies fever, chills. He denies dysuria, frequency of urination, or decreased urination. He self catheters at home through a neobladder, but he states that he has been unable to past 2 days. Critical care medicine is consulted to evaluate and manage his severe acidosis. He was placed on BiPAP due to severe respiratory distress secondary to his acidosis. The remainder of the history and review of systems is negative unless otherwise specified above. Review of Systems ROS Limitations: Clinical Condition Constitutional: DENIES: Diaphoretic episodes, Fatigue, Fever, Weight gain, Weight loss, Dizziness Endocrine: DENIES: Heat/cold intolerance Respiratory: DENIES: Apneas, Cough, Wheezing, Hemoptysis, Sputum production, Shortness of breath Cardiovascular: DENIES: Chest pain, Palpitations, Syncope, Dyspnea on Exertion , PND, Lower Extremity Edema, Orthopnea Gastrointestinal: DENIES: Abdominal pain, Black stools, Bloody stools, Constipation, Diarrhea, Nausea, Vomiting Genitourinary: DENIES: Urinary frequency, Urinary incontinence, Urgency Past Family Social History Allergies: Coded Allergies: Compazine (Verified Allergy, Severe, MUSCLE CONTRACTURES, 08/29/16) Contrast Media (Verified Allergy, Severe, Anaphylaxis, 08/29/16) Thorazine (Verified Allergy, Severe, MUSCLE CONTRACTURES, 08/29/16) *MDRO Multi-Drug Resistant Organism (Verified Adverse Reaction, Unknown, MRSA, 09/03/16) 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 Past Medical History Anemia, unknown etiology Arthritis Hyperlipidemia Coronary artery disease Hypertension Paraplegia Chronic renal insufficiency, unknown stage Past Surgical History Neobladder reconstruction, "[place] pouch " Appendectomy Ivan in left femur Band around pelvis and hip Coronary artery bypass grafting Cholecystectomy Coronary artery stent Urinary diversion Left nephrectomy Tonsillectomy C5 6 fusion C7 discectomy Reported Medications Oxycodone 30 mg by mouth every 4 hours when necessary Vitamin C Aspirin 81 mg daily Calcitrol 0.25 g daily Vitamin B12 Hydrocortisone topical cream Hydralazine 100 mg 3 times a day Toprol-XL 25 mg daily Multivitamin Doxy sodium 100 mg twice a day Iron supplementation Amlodipine 5 mg daily Active Ordered Medications See MAR Family History Reviewed and found to be noncontributory to his acute illness Social History Denies tobacco, alcohol, drugs of abuse. Physical Exam Vital Signs Vital Signs Date Time Temp Pulse Resp B/P Pulse Ox O2 Delivery O2 Flow Rate FiO2 10/18/16 15:00 78 15 139/69 100 BiPAP 40 10/18/16 14:39 98 BiPAP 40 10/18/16 14:29 99 40 10/18/16 12:56 98 Nasal Cannula 4.00 10/18/16 12:10 98 50 10/18/16 12:06 107 30 97 Nasal Cannula 6 10/18/16 12:06 97 Nasal Cannula 4 10/18/16 12:03 97.8 107 30 149/115 97 Physical Exam GENERAL: Morbidly obese male, lying in bed, very tachypneic, dyspneic, and respiratory distress, BiPAP HEENT: Normocephalic. Atraumatic. Pupils equal, round, reactive, conjugate. Mucous membranes are moist NECK: Trachea is midline. Large ford and large obese neck prevents the assessment of JVD CHEST: Tachypneic, labored, using accessory muscles to breathe. BiPAP in place CARDIOVASCULAR: Normal rate, regular rhythm. Sinus by telemetry ABDOMEN: Soft, morbidly obese, nontender, nondistended. No guarding. Multiple healed scars around the abdomen, including median scar. There is a colostomy bag that exits the left lower quadrant. There is also a small opening of the patient says his his access to his neobladder in the right lower quadrant. MUSCULOSKELETAL: Radial Pulses 2+. 1+ pitting edema peripherally NEUROLOGICAL: RASS 0. Follows commands. Alert and oriented Laboratory Laboratory Tests Test 10/18/16 10/18/16 10/18/16 10/18/16 12:40 14:05 14:27 15:05 White Blood Count 20.2 Red Blood Count 3.99 Hemoglobin 9.9 Hematocrit 32.7 Mean Corpuscular Volume 81.9 Mean Corpuscular Hemoglobin 24.8 Mean Corpuscular Hemoglobin 30.2 Concent Red Cell Distribution Width 19.5 Platelet Count 310 Mean Platelet Volume 6.8 Neutrophils (%) (Auto) Lymphocytes (%) (Auto) Monocytes (%) (Auto) Eosinophils (%) (Auto) Basophils (%) (Auto) Neutrophils # (Auto) Lymphocytes # (Auto) Monocytes # (Auto) Eosinophils # (Auto) Basophils # (Auto) CBC Comment AUTO DIFF Differential Total Cells 100 Counted Neutrophils % (Manual) 90 Band Neutrophils % 4 Monocytes % 4 Neutrophils # (Manual) 19.4 Metamyelocytes 2 Nucleated Red Blood Cells 1 Differential Comment FINAL DIFF MANUAL Platelet Estimate NORMAL Platelet Morphology Comment NORMAL Ovalocytes 1+ Acanthocytes OCC Prothrombin Time 14.0 Prothromb Time International 1.3 Ratio Activated Partial 34.9 Thromboplast Time Sodium Level 132 Potassium Level 4.0 Chloride Level 106 Carbon Dioxide Level 6.9 Anion Gap 19 Blood Urea Nitrogen 86 Creatinine 6.33 Estimat Glomerular Filtration 9 Rate Random Glucose 152 Calcium Level 7.1 Protein Corrected Calcium 6.9 Total Protein 7.6 Blood Gas Puncture Site RT RADIAL Blood Gas Patient Temperature 98.6 Blood Gas HCO3 4 Blood Gas Base Excess -25.1 Blood Gas Oxygen Saturation 95 Arterial Blood pH 6.99 Arterial Blood Partial 18 Pressure CO2 Arterial Blood Partial 125 Pressure O2 Arterial Blood Oxygen Content 14.1 Arterial Blood 0.7 Carboxyhemoglobin Arterial Blood Methemoglobin 1.2 Blood Gas Hemoglobin 10.4 Oxygen Delivery Device NASAL CANNULA Blood Gas Liter Flow 3 Phosphorus Level 8.4 Lactic Acid Level 1.8 Date/Time Procedure Status Source Growth 10/18/16 15:05 Aerobic Blood Culture Received Blood Peripheral Pending 10/18/16 15:05 Anaerobic Blood Culture Received Blood Peripheral Pending Result Diagram: 10/18/16 1240 10/18/16 1240 Imaging Last Impressions Chest X-Ray 10/18/16 0000 Signed Impressions: Service Date/Time: Tuesday, October 18, 2016 12:44 - CONCLUSION: Possible mild bibasilar atelectasis. Deborah Dean MD Assessment and Plan Assessment and Plan Assessment: 61yM with paraplegia who presents with severe acute kidney injury and acute life-threatening metabolic acidosis with pH < 6.9. Will aggressively replace bicarbonate, but may be required to revert to renal replacement therapy to correct his acidosis as he is in respiratory failure requiring NIPPV just to account for his severe acidosis. Etiology of his VIJAY is unknown at this point, although occult infection cannot be ruled out. Also, patient is no longer able to self-cath, so obstructive uropathy is a concern. will obtain CT abd/pelvis and may need IR assistance if obstructive uropathy exists. remains critically ill at this time with life-threatening acidosis and severe acute kidney injury Active Problems: Acute kidney injury life-threatening metabolic acidosis acute respiratory failure requiring NIPPV Plan: -- 4 amps bicarb x 4 -- bicarb drip at 150 mL/hr -- repeat labs in 4 hours -- nephrology consult -- if no rapid improvement, will proceed with renal replacement. -- admit to ICU -- trend labs -- order phos level. may require phos binder. -- appears clinically euvolemic -- will rubio culture and start empiric vanc/zosyn until we can rule out occult infection. -- repeat abg, bmp. This patient remains critically ill with one or more organ systems which are or may become a threat to life. I have spent in excess of 49 minutes discontinuously in the care and management of this patient. This time is exclusive of procedures, and includes, but is not limited to, evaluation of the patient, review of the medical record, discussions with family, consultants, nursing staff, or respiratory therapy, and documentation in the medical record. Code Status Full Code Nahid Fuller MD Oct 18, 2016 16:22
--- NOTE | 2016-10-18 16:29 | RADRPT ---
EXAM DATE/TIME: 10/18/2016 16:07 [facility] COMPARISON: CT ABDOMEN & PELVIS W/O CONTRAST, August 29, 2016, 16:20. INDICATIONS : Renal failure; unable to self catheter. ORAL CONTRAST: No oral contrast ingested. RADIATION DOSE: 28.03 CTDIvol (mGy) ; High dose protocol; Patient body habitus MEDICAL HISTORY : Cardiovascular disease. Hypertension. Distorted anatomy due to prior surgery, parapalegic, [place] po uch. SURGICAL HISTORY : Nephrectomy, left. [place] pouch, cervical fusion. ENCOUNTER: Initial ACUITY: 1 day PAIN SCALE: 8/10 LOCATION: Bilateral abdomen. TECHNIQUE: Volumetric scanning of the abdomen and pelvis was performed. Using automated exposure control and ad justment of the mA and/or kV according to patient size, radiation dose was kept as low as reasonably achievable to obtain optimal diagnostic quality images. DICOM format image data is available electro nically for review and comparison. FINDINGS: LOWER LUNGS: Tiny pleural effusions. LIVER: Homogeneous density without lesion. There is no dilation of the biliary tree. Cholecystectomy. SPLEEN: Normal size without lesion. PANCREAS: Within normal limits. KIDNEYS: Mild hydronephrosis right kidney again seen. Punctate cortical calcification again noted measuring 3 mm. Right renal low density, unchanged. Left nephrectomy. No residual soft tissue density. ADRENAL GLANDS: Within normal limits. VASCULAR: There is no aortic aneurysm. BOWEL/MESENTERY: The stomach, small bowel, and colon demonstrate no acute abnormality. There is no free intraperitone al air or fluid. No dilated bowel loops. Ileostomy. Left lower quadrant colostomy. ABDOMINAL WALL: Within normal limits. RETROPERITONEUM: There is no lymphadenopathy. BLADDER: Cystectomy. Ileostomy with neobladder. REPRODUCTIVE: Within normal limits. INGUINAL: There is no lymphadenopathy or hernia. MUSCULOSKELETAL: Possible decubitus ulcer again seen posterior to the rectum. CONCLUSION: 1. There is hydronephrosis of the right kidney similar to previous study with neobladder and ileostom y. 2. 3 mm nonobstructing right renal calculus. 3. Left nephrectomy. Alok Upton MD on October 18, 2016 at 16:23 Board Certified Radiologist. This report was verified electronically.
[2016-10-18] MEDS ORDERED: MISCELLANEOUS NURSING INFORMATION XX SCH (16:30)
[2016-10-18] MEDS ORDERED: ONDANSETRON HCL 4 MG/2 ML VIAL IV PRN (16:30)
[2016-10-18] MEDS ORDERED: CHLORHEXIDINE GLUCONATE 2 % 1 PACK (2 CLOTHS) TOP PRN (16:30)
--- NOTE | 2016-10-18 16:36 | RADRPT ---
EXAM DATE/TIME: 10/18/2016 15:27 [facility] COMPARISON: CT ABDOMEN & PELVIS W/O CONTRAST, October 18, 2016, 16:07. EXTERNAL COMPARISON : [facility], US KIDNEY BILATERAL, March 02, 2008. INDICATIONS : Increased BUN/creatinine. MEDICAL HISTORY : Myocardial infarction. Hypercholesterolemia. Arthritis. Parapalegic. HTN. Chest pain. Blood transfusi ons.Chronic renal disease and failure. Anemia. Cdiff. MRSA. SURGICAL HISTORY : Tonsillectomy. Appendectomy. Coronary artery stent. Cardiac cath. CABG. Floria pouch. Cholecystectomy . Urinary diversion. Left nephrectomy. Flap done right ischial. Fracture left hip with hardware. Frac ture left ankle. C5-C6 fusion. C7 discectomy. ENCOUNTER: Initial ACUITY: 1 day PAIN SCORE: 3/10 LOCATION: Bilateral flank MEASUREMENTS: RIGHT KIDNEY: 14.6 x 7.1 x 7.1 cm LEFT KIDNEY: Surgically absent. FINDINGS: RIGHT KIDNEY: Increase in echogenicity with hydronephrosis. Simple cyst measures 23 x 19 x 17 mm. LEFT KIDNEY: Surgically absent. BLADDER: There is a neobladder in the right lower quadrant. Status post cystectomy. CONCLUSION: 1. Hydronephrosis of the right kidney. 2. Cystectomy with neobladder. Alok Upton MD on October 18, 2016 at 16:33 Board Certified Radiologist. This report was verified electronically.
[2016-10-18] MEDS: PIPERACIL-TAZO 2.25 GM PREMIX 50 ML IV SCH ×2 (17:00→18:00)
[2016-10-18 17:12] LABS: BLOOD GAS BASE EXCESS -19.5 mmol/L (-2-2); BLOOD GAS CARBOXYHEMOGLOBIN 0.7 % (0-4); BLOOD GAS HCO3 8 mmol/L (22-26); BLOOD GAS METHEMOGLOBIN 1.2 % (0-2); BLOOD GAS O2 HGB SATURATION 97 % (90-100); BLOOD GAS OXYGEN CONTENT 13.5 Vol % (12.0-20.0); BLOOD GAS PCO2 27 mmHg (38-42); BLOOD GAS PO2 186 mmHG (61-120); BLOOD GAS TOTAL HGB 9.6 G/DL (12.0-16.0); CRITICAL VALUE YES; OXYGEN DEVICE BiPAP; TEMP CORR TO 98.6
[2016-10-18 17:13] LABS: DRAW SITE RT RADIAL; FIO2 40 %; NUMBER OF ARTERIAL PUNCTURES 1; STAT YES; ULNAR PULSE PRESENT; VENT SETTINGS IPAP10/EPAP5
--- NOTE | 2016-10-18 18:28 | MB ---
cc: KARLEE CARBONE DATE OF CONSULTATION: 10/18/2016. REASON FOR CONSULTATION: HISTORY OF PRESENT ILLNESS: This is a pleasant 61-year-old male who has a history of paraplegia with a history of a neobladder. The patient performs self-catheterization using a 20-Icelandic Jean catheter, and over the last two days he has had difficulty placing the catheter through his possible appendicovesicostomy. Back in 2013, Dr. Pino had to perform flexible cystoscopy through the appendicovesicostomy in order to release some mucous plug to allow catheter insertion. He presents with a creatinine in the 6 range and he has a solitary right kidney. The patient will need to the operating room to undergo flexible cystoscopy through the appendicovesicostomy site in order to attempt to place a Jean catheter. I tried a few times using a #14 Icelandic [place] but was unsuccessful in getting any drainage. PAST MEDICAL HISTORY: His medical history includes: 1. Anemia. 2. Arthritis. 3. Hyperlipidemia. 4. Coronary artery disease. 5. Hypertension. 6. Paraplegia. 7. Chronic renal insufficiency. 8. Neobladder reconstruction in the past. PAST SURGICAL HISTORY: 1. Neobladder reconstruction in the past. 2. Appendectomy. 3. Femoral derek on the right side. 4. Coronary artery bypass grafting. 5. Cholecystectomy. 6. Coronary artery stent placement. 7. Left nephrectomy. 8. Tonsillectomy. 9. C5-6 fusion. 10. C7 discectomy. MEDICATIONS: For medications, please refer to the chart. ALLERGIES: 1. COMPAZINE. 2. CONTRAST MEDIA. 3. THORAZINE. SOCIAL HISTORY: Denied smoking, drinking or using drugs. FAMILY HISTORY: Denies any family history of prostate cancer. REVIEW OF SYSTEMS: CONSTITUTIONAL: He denies diaphoretic episodes, fatigue, fever or weight gain, weight loss, dizziness. ENDOCRINE: Denies heat or cold intolerance. CARDIOVASCULAR: Denies chest pain. He does note some shortness of breath at present. GI: Denies any abdominal pain. He does have some mild abdominal pain at present. He denies any recent urinary tract infections. NEUROLOGIC: Denies gait disturbances. HEMATOLOGIC: Denies bleeding disorders. The Remaining ROS was performed as was negative. PHYSICAL EXAMINATION: VITAL SIGNS: His present vitals temperature 97.8, heart rate 107, respiratory rate 30, 149/115 is his blood pressure and 97% on a nasal cannula at present. GENERAL: He is an obese 61-year-old male in moderate distress. HEAD, EYES, EARS, NOSE, THROAT: Normocephalic, atraumatic. Pupils equal round react to light from is intact. Extraocular muscles intact. NECK: Neck is supple. Heart: Rate sinus tach. RESPIRATORY: Breath sounds heard bilaterally. BiPAP is currently in place. ABDOMEN: Soft, obese, slightly tender over the area where the neobladder bladder is in the right middle quadrant. Colostomy bag as noted in the left lower quadrant. : normal phallus; testes descended EXTREMITIES: 1+ pitting edema peripherally. LABORATORY DATA: White count 20.2, hemoglobin 9.9, hematocrit 32.7, platelet count of 310,000. Sodium 133, potassium 4.0, chloride 106, carbon dioxide is 6.9, BUN is 86, creatinine 6.3, glucose is 152. INR 1.3, PT 14, PTT 34.9. ASSESSMENT: This is a 61-year-old male who has an obstructive appendicovesicostomy most likely due to mucous. PLAN: Will perform flexible cystoscopy at the bedside and attempt to place a catheter into his bladder. This will be done as an emergency in the operating room. Karlee NAGEL/DOUG /5:53 PM /6:12 PM ELIZABETH
--- NOTE | 2016-10-18 18:28 | PD.OP ---
Operative Report Date of Surgery: Oct 18, 2016 Preoperative Diagnosis: Obstructed appendicovesicostomy Postoperative Diagnosis: Same Procedure: Flexible cystoscopy of the appendicovesicostomy with irrigation and Jean placement over a wire into the pouch Anesthesia: None Surgeon: Austyn Shelton Income Tax Investigator(s): None Resident Surgeon: None Operation and Findings: Mdy-rgca-bln male with long history of appendicovesicostomy created back in 1988. Back in 2012 patient had mucus plugging of his appendicovesicostomy and flexible cystoscopy was performed by Dr. Pino which cleared the obstruction. He presented to the emergency room in acute renal failure with a creatinine elevated in the 6 range with findings of a solitary right kidney with hydronephrosis. Plan was to take the patient to the operating room to undergo flexible cystoscopy via the appendicovesicostomy to clear the obstructed area. Patient is brought to the operative on itself his [facility]. He remained on the stretcher and was prepped and draped in usual sterile fashion and preprocedure bites were given. The flexible cystoscope was inserted into the appendicovesicostomy and with irrigation I was able to place the scope into the pouch. Mucus was surrounding the area of the opening of the pouch. As 0.35 sensor wire was passed through the scope and then a 20 Portuguese two-way Jean catheter was inserted over the wire. 1200 cc of foul-smelling sediment filled urine drained. Urine was sent for culture. The pouch was then irrigated through the 20 Portuguese Jean catheter until a sediment cleared. 10 cc were then placed and the balloon of the catheter and it was left to straight drainage. He tolerated the procedure well. We will maintain Jean catheter drainage from the pouch until his acute renal failure resolves. Austyn Shelton DO Oct 18, 2016 18:28
--- NOTE | 2016-10-18 18:53 | EKG ---
Date Performed: 10/18/2016 Time Performed: 12:08:54 PTAGE: 61 years EKG: SINUS TACHYCARDIA RIGHT AXIS DEVIATION NONSPECIFIC INTRAVENTRICULAR CONDUCTION DELAY ABNORM AL ECG NO PREVIOUS TRACING DOCTOR: Prince Cruz Interpretating Date/Time 10/18/2016 18:52:41
[2016-10-18] MEDS: HEPARIN SODIUM - SQ 10,000 UNITS/ML VIAL SQ SCH (19:00)
[2016-10-18] MEDS: RESP: ALBUTEROL 2.5 MG/IPRATROPIUM 0.5 MG NEB (PRN) INH (19:45)
[2016-10-18 19:53] LABS: BACTERIA, URINE MANY /hpf; BLOOD, URINE SMALL (NEG); GLUCOSE,URINE NEG (NEG); KETONE, URINE NEG (NEG); MUCUS URINE MANY /lpf (OCC); NITRITE,URINE NEG (NEG); SQUAMOUS EPITHELIAL CELL URINE 3 /hpf (0-5); TRIPLE PHOSPHATE CRYSTAL,URINE OCC /hpf
[2016-10-18 19:55] LABS: URINE COLOR LIGHT-RED (YELLW/STRAW)
[2016-10-18 19:56] LABS: COMMENT (UR) CATH-CULTURE IND; CULTURE IF INDICATED CATH CULTURE IND
--- NOTE | 2016-10-18 20:12 | MB ---
cc: PREET ROMO MD DATE OF CONSULTATION: 10/18/2016. REASON FOR CONSULTATION: Acute kidney injury with history of chronic kidney disease and very high BUN and creatinine. HISTORY OF PRESENT ILLNESS: This is a 61-year-old male with past medical history of paraplegia, history of partial small-bowel obstruction, hypertension, hyperlipidemia, ischemic heart disease, chronic kidney disease, arthritis, anemia, history of neobladder formation with neurogenic bladder, left nephrectomy who was admitted with complaint of shortness of breath. The patient mainly came with shortness of breath and he was found to be severely acidotic with a very low pH of 6.99 and bicarb was very low and very high BUN and creatinine. The patient previously has a history of chronic kidney disease, although is not following with any web ui software engineer. His creatinine was 2.1-2.2 which was his baseline when he was admitted last month. Now he came with a creatinine of 6.3. The patient has neobladder formation and he does catheterization by himself at home every 4-6 hours. For the last two days, he has not been able to catheterize himself and has not been able to get the urine out. The patient was given sodium bicarbonate and he was seen by the urology and he was taken to the OR and he had a flexible cystoscopy done with Jean placement over the wire into the pouch. After this, 1200 mL of foul-smelling urine came out. PAST MEDICAL HISTORY: 1. Hypertension. 2. Chronic kidney disease. 3. Hyperlipidemia. 4. Paraplegia. 5. Neurogenic bladder. 6. Chronic kidney disease. 7. Anemia. 8. Arthritis. PAST SURGICAL HISTORY: 1. History of neobladder formation. 2. History of left nephrectomy. 3. Tonsillectomy. 4. Cholecystectomy. 5. Coronary artery bypass grafting. 6. Cervical spine surgery. 7. Cardiac catheterization with stent. REVIEW OF SYSTEMS: The patient has generalized weakness, feeling tired, has shortness of breath which has been gradually getting worse. Denies any nausea, vomiting. He does not have any abdominal pain. He has a neobladder and has been doing intermittent catheterization at home and there is not much urine coming out for the last two days and he has had difficulty putting the catheter in. SOCIAL HISTORY: There is no history of smoking or alcoholism. FAMILY HISTORY: Noncontributory. ALLERGIES: 1. CONTRAST MEDIA. 2. COMPAZINE. 3. THORAZINE. MEDICATIONS: Currently he is on the following medications: 1. IV fluids with sodium bicarbonate at 150 mL/hour. 2. Margarita-Colace twice a day. 3. Heparin 5000 units subcutaneous q. 12 hours. 4. Zosyn 2.25 grams IV q. 8 hours. 5. Zofran as needed. PHYSICAL EXAMINATION: GENERAL: On examination, the patient is awake and alert and in no acute distress. VITAL SIGNS: The last blood pressure is 133/72, temperature 98.2, oxygen saturation is 95% to 97%. HEAD, EYES, EARS, NOSE, THROAT: The pupils are equal and reacting to light. Nonicteric sclerae. Conjunctivae are pale. NECK: The neck is supple. JVD is not elevated. LUNGS: The patient has bilateral decreased air entry with occasional wheezing. HEART: S1 and S2 regular rhythm. ABDOMEN: Abdomen is obese soft and lax. There are multiple scars. He has a neobladder with a Jean catheter on the right side and on the left side he has a colostomy bag. EXTREMITIES: In the lower extremities, he has chronic scaling and dryness of the skin. INVESTIGATIONS: White blood cell count is 20.2, hemoglobin 9.9, platelet count of 310,000. Sodium 132, potassium 4.0, chloride 106, bicarbonate 6.9, BUN 86, creatinine 6.3, calcium corrected is 7.1, phosphorus 8.4. INR 1.3. Urinalysis showing protein 1+ and this was done last month. IMAGING STUDIES: The patient had a chest x-ray done which shows bibasilar atelectasis. Ultrasound of the kidneys was done which shows right kidney is 14.6 cm. Left is absent. Hydronephrosis of right kidney. Cystectomy with neobladder formation. CT scan of the abdomen and pelvis was done which shows mild hydronephrosis of the right kidney with neobladder, ileostomy, nonobstructing right renal calculus, left nephrectomy. ASSESSMENT AND PLAN: 1. Acute kidney injury with history of chronic kidney disease and single kidney. 2. Obstructive uropathy. 3. Urinary tract infection. 4. Severe metabolic acidosis 5. Hypocalcemia and high phosphorus level. 6. History of hypertension. 7. Anemia. The patient has underlying chronic kidney disease with single kidney and now developed acute kidney injury most likely because of the obstructive uropathy and also has urinary tract infection and he has severe metabolic acidosis. The patient underwent urological procedure and has a cystoscopy with irrigation and Jean placement over the wire in the pouch and has started passing urine so hopefully this will improve renal function. Continue the IV fluids and antibiotics. Follow the culture results. The calcium is low and I will also add PhosLo since the phosphorous is also very high. Thank you for the consultation, and I will follow the patient while he is in the hospital. MD CLAUDE Varner/DOUG /6:57 PM /7:54 PM
[2016-10-18] MEDS: DOCUSATE SODIUM 50 MG/SENNA 8.6 MG TAB PO SCH (21:00)
[2016-10-18 22:33] LABS: POTASSIUM 3.7 MEQ/L (3.5-5.1)
[2016-10-18 22:54] LABS: CALCIUM-PROTEIN CORRECTED 6.6 MG/DL (8.5-10.1)
[2016-10-19] VITALS (8 sets, daily range): BP systolic 80–118; BP diastolic 50–62; PULSE 61–75; RESP 18–24; TEMP 97.6–98.8; O2SAT 92–97
[2016-10-19] MEDS: SODIUM BICARBONATE 8.4% INJ 150 MEQ in DEXTROSE 5% IN WATE 1000ML INJ 1,000 ML IV SCH ×6 (00:38→18:32)
[2016-10-19] MEDS: PIPERACIL-TAZO 2.25 GM PREMIX 50 ML IV SCH ×3 (00:51→16:08)
[2016-10-19] MEDS ORDERED: CALCIUM GLUCONATE INJ 2 GM in DEXTROSE 5% IN WATER 100ML INJ 100 ML IV ONE ×2 (01:00)
[2016-10-19] MEDS: CHLORHEXIDINE GLUCONATE 2 % 1 PACK (2 CLOTHS) TOP SCH (04:00)
[2016-10-19 05:28] LABS: BLOOD GAS BASE EXCESS -15.1 mmol/L (-2-2); BLOOD GAS CARBOXYHEMOGLOBIN 1.5 % (0-4); BLOOD GAS HCO3 12 mmol/L (22-26); BLOOD GAS METHEMOGLOBIN 1.9 % (0-2); BLOOD GAS O2 HGB SATURATION 94 % (90-100); BLOOD GAS OXYGEN CONTENT 11.1 Vol % (12.0-20.0); BLOOD GAS PCO2 34 mmHg (38-42); BLOOD GAS PO2 113 mmHg (61-120); BLOOD GAS TOTAL HGB 8.2 G/DL (12.0-16.0); TEMP CORR TO 98.6
[2016-10-19 05:30] LABS: CRITICAL VALUE YES; DRAW SITE RT RADIAL; LITER FLOW 2 L/M; NUMBER OF ARTERIAL PUNCTURES 1; OXYGEN DEVICE NASAL CANNULA; ULNAR PULSE PRESENT
[2016-10-19 05:31] LABS: STAT NO
[2016-10-19] MEDS ORDERED: SODIUM BICARBONATE 8.4% INJ 50 MEQ/50 ML SYR ONE (05:42)
[2016-10-19] MEDS: HEPARIN SODIUM - SQ 10,000 UNITS/ML VIAL SQ SCH ×2 (05:58→18:26)
[2016-10-19] MEDS ORDERED: SODIUM BICARBONATE 8.4% SOLN 50 MEQ/50 ML VIAL IV PUSH ONE (06:00)
[2016-10-19 06:42] LABS: AUTOMATED NEUTROPHIL # 11.6 TH/MM3 (1.8-7.7); BASOPHIL % 0.3 % (0.0-2.0); EOSINOPHIL % 0.1 % (0.0-4.0); HEMATOCRIT 25.1 % (39.0-51.0); HEMO FLAGS DIFF FINAL; LYMPH % 3.8 % (9.0-44.0); LYMPHOCYTE # 0.5 TH/MM3 (1.0-4.8); MEAN CELL VOLUME 78.1 FL (80.0-100.0); MONO % 7.9 % (0.0-8.0); NEUT % 87.9 % (16.0-70.0); PLATELET COUNT 214 TH/MM3 (150-450); RED BLOOD COUNT 3.22 MIL/MM3 (4.50-5.90); RED CELL DISTRIBUTION WIDTH 19.5 % (11.6-17.2); WHITE BLOOD COUNT 13.2 TH/MM3 (4.0-11.0)
[2016-10-19 06:55] LABS: BICARBONATE 14.7 MEQ/L (21.0-32.0); MAGNESIUM 1.5 MG/DL (1.5-2.5); TOTAL BILIRUBIN ADULT 0.3 MG/DL (0.2-1.0)
[2016-10-19] MEDS: INSULIN NovoLIN REGULAR SUPPLEMENTAL SCALE SQ SCH (07:00)
[2016-10-19 07:47] LABS: CALCIUM-PROTEIN CORRECTED 6.9 MG/DL (8.5-10.1); POTASSIUM 2.8 MEQ/L (3.5-5.1)
[2016-10-19] MEDS: DOCUSATE SODIUM 50 MG/SENNA 8.6 MG TAB PO SCH (09:00)
--- NOTE | 2016-10-19 09:11 | HHI.PR ---
Subjective Patient symptoms today Pt seen and examined. Feeling better. Abdominal pain resolved. Healy draining. Creatinine still at 6.2. Objective Vital Signs Vital Signs Date Time Temp Pulse Resp B/P Pulse Ox O2 Delivery O2 Flow Rate FiO2 10/19/16 08:22 96 10/19/16 03:00 67 10/19/16 03:00 98.6 67 18 92/50 96 10/19/16 00:32 93 Nasal Cannula 2.00 10/18/16 23:00 97.9 70 18 93/58 92 10/18/16 23:00 70 10/18/16 21:12 96 21 10/18/16 21:05 98.3 85 18 108/56 94 10/18/16 21:05 85 10/18/16 20:30 72 19 134/76 99 Room Air 10/18/16 20:00 98.4 77 20 163/83 99 Room Air 10/18/16 19:30 98.0 75 26 148/85 98 Room Air 10/18/16 19:15 68 13 117/58 98 Room Air 10/18/16 19:00 85 16 145/78 97 Room Air 10/18/16 18:45 74 16 133/72 95 Room Air 10/18/16 18:30 74 16 149/80 97 Room Air 10/18/16 18:25 98.2 86 16 130/68 96 Room Air 10/18/16 16:00 78 15 149/77 100 BiPAP 40 10/18/16 15:00 78 15 139/69 100 BiPAP 40 10/18/16 14:39 98 BiPAP 40 10/18/16 14:29 99 40 10/18/16 12:56 98 Nasal Cannula 4.00 10/18/16 12:10 98 50 10/18/16 12:06 107 30 97 Nasal Cannula 6 10/18/16 12:06 97 Nasal Cannula 4 10/18/16 12:03 97.8 107 30 149/115 97 Intake & Output 10/19/16 10/19/16 07:00 19:00 Intake Total 1891 ml Output Total 1620 ml Balance 271 ml Intake Oral 130 ml IV Total 1761 ml Output Urine Total 1620 ml Stool Total 0 ml Result Diagram: 10/19/1653910/19/16539 Objective Remarks Abd:soft,nt,nd Healy in place and draining cloudy urine Medications and IVs Current Medications Medications (Trade) Dose Ordered Sig/Yosi Route Start Time Stop Time Status Last Admin (Sodium Bicarbonate 8.4% Inj/D5W 1000 ml Inj) 1,150 ml @ 150 mls/hr Q7H40M IV 10/18/16 15:00 10/19/16 00:38 Dextrose 25 ml 25 ml UNSCH PRN IV PUSH 10/18/16 14:30 (Zosyn 2.25 Gm Premix) 50 ml @ 100 mls/hr Q8H IV 10/18/16 17:00 10/19/16 00:51 (Zofran Inj) 4 mg Q6H PRN IV 10/18/16 16:30 10/18/16 18:40 (Heparin Inj) 5,000 units Q12H SQ 10/18/16 18:00 10/19/16 05:58 Miscellaneous Information 1 Q361D XX 10/18/16 16:30 10/18/16 16:30 (Chlorhexidine 2% Cloth) 3 pack Taper DAILY@04 TOP 10/19/16 04:00 10/15/17 03:59 10/19/16 04:00 (Chlorhexidine 2% Cloth) 3 pack UNSCH PRN TOP 10/18/16 16:30 (Margarita-Colace) 1 tab BID PO 10/18/16 21:00 10/18/16 21:00 (Phoslo) 1,334 mg TID PO 10/19/16 09:00 Assessment and Plan Assessment and Plan 61 y.o male s/p cystoscopy of appendico with placement of healy catheter for 1200cc Check Ucx results Maintain healy catheter Continue ABX and supportive measures Austyn Shelton DO Oct 19, 2016 09:11
[2016-10-19] MEDS ORDERED: GLUCAGON 1 MG/ML VIAL OTHER PRN (10:00)
[2016-10-19] MEDS ORDERED: SODIUM CHLORID 0.9% 500 ML INJ 500 ML IV ONE (10:00)
[2016-10-19] MEDS: MAGNESIUM SULFATE 1 GM PREMIX 100 ML IV SCH ×2 (10:13→11:25)
[2016-10-19] MEDS: POTASSIUM CHLOR 20 MEQ PREMIX 100 ML IV SCH ×3 (10:13→21:48)
[2016-10-19] MEDS: CALCIUM ACETATE 667 MG CAP PO SCH ×3 (10:14→18:22)
--- NOTE | 2016-10-19 10:16 | HHI.NPPN ---
Subjective History of Present Illness 61-year-old male with past medical history of paraplegia, history of partial small-bowel obstruction, hypertension, hyperlipidemia, ischemic heart disease, chronic kidney disease, arthritis, anemia, history of neobladder formation with neurogenic bladder, left nephrectomy who was admitted with complaint of shortness of breath. The patient mainly came with shortness of breath and he was found to be severely acidotic with a very low pH of 6.99 and bicarb was very low and very high BUN and creatinine. The patient previously has a history of chronic kidney disease, although is not following with any watch crystal grinder. His creatinine was 2.1-2.2 which was his baseline when he was admitted last month. Additional Remarks Patient is alert, breathing is better, not eating well, no abd. pain. Review of Systems General Constitutional: Fatigue Respiratory Lungs: SOB Cardiovascular Cardiac: BAEZ Objective Data Data 10/18/16 10/19/16 19:00 07:00 Intake Total 1891 ml Output Total 1200 ml 1620 ml Balance -1200 ml 271 ml Intake Oral 130 ml IV Total 1761 ml Output Urine Total 1620 ml Stool Total 0 ml Estimated Blood Loss 0 ml Other 1200 ml Vital Signs Date Time Temp Pulse Resp B/P Pulse Ox O2 Delivery O2 Flow Rate FiO2 10/19/16 08:22 96 10/19/16 03:00 67 10/19/16 03:00 98.6 67 18 92/50 96 10/19/16 00:32 93 Nasal Cannula 2.00 10/18/16 23:00 97.9 70 18 93/58 92 10/18/16 23:00 70 10/18/16 21:12 96 21 10/18/16 21:05 98.3 85 18 108/56 94 10/18/16 21:05 85 10/18/16 20:30 72 19 134/76 99 Room Air 10/18/16 20:00 98.4 77 20 163/83 99 Room Air 10/18/16 19:30 98.0 75 26 148/85 98 Room Air 10/18/16 19:15 68 13 117/58 98 Room Air 10/18/16 19:00 85 16 145/78 97 Room Air 10/18/16 18:45 74 16 133/72 95 Room Air 10/18/16 18:30 74 16 149/80 97 Room Air 10/18/16 18:25 98.2 86 16 130/68 96 Room Air 10/18/16 16:00 78 15 149/77 100 BiPAP 40 10/18/16 15:00 78 15 139/69 100 BiPAP 40 10/18/16 14:39 98 BiPAP 40 10/18/16 14:29 99 40 10/18/16 12:56 98 Nasal Cannula 4.00 10/18/16 12:10 98 50 10/18/16 12:06 107 30 97 Nasal Cannula 6 10/18/16 12:06 97 Nasal Cannula 4 10/18/16 12:03 97.8 107 30 149/115 97 -: 10/19/16 0540 10/19/16 0540 Microbiology 10/18/16 Aerobic Blood Culture, Received Pending 10/18/16 Anaerobic Blood Culture, Received Pending 10/18/16 Aerobic Blood Culture, Received Pending 10/18/16 Anaerobic Blood Culture, Received Pending 10/18/16 Urine Culture, Received Pending 10/18/16 Acid Fast Stain, Received Pending 10/18/16 Mycobacterial Culture, Received Pending 10/18/16 Fungal Smear, Received Pending 10/18/16 Fungal Culture, Received Pending Physical Exam General Appearance: Well Nourished, No Acute Distress, Comfortable Eyes Eye Exam: Pupils Equal Throat Throat Exam: Oral Mucosa [place] & Moist Neck Neck Exam: Neck Supple Pulmonary Resp Exam: Breath Sounds Equal, No Distress, Decreased Bases Cardiology CV Exam: Regular, Normal Sinus Rhythm Gastrointestinal/Abdomen GI Exam: Soft, Non-Tender, Bowel Sounds Present Extremeties Extremities Exam: Trace Edema Neurologic Neuro Exam: Alert, Awake, Oriented Psychiatric Psych Exam: Appropriate Responses Assessment/Plan Assessment Summary: VIJAY/Acute Renal Failure, CKD Stage III Electrolyte Assessment: Hypocalcemia, Hypokalemia, Metabolic Acidosis Problem List: (1) Leukocytosis (2) Acidemia (3) Respiratory distress (4) Paraplegia (5) UTI (urinary tract infection) (6) CKD (chronic kidney disease), stage III (7) Acute renal failure Plan Patient has advance stage 3 chronic kidney disease, and develop VIJAY, with severe metabolic acidosis. Also has UTI and obstructive uropathy. Has low K , and calcium, replaced. Urine out put is good. Creatinine is still elevated, and Hco3 slowly improving. Continue IVF and antibiotics. Possibly has an element of ATN. Follow the urine out put and BMP. If not better, possible HD, D/W the patient. Lynsey Goldman MD Oct 19, 2016 10:16
--- NOTE | 2016-10-19 10:26 | HHI.CCPN ---
Subjective Remarks/Hospital Course This is a 61-year-old male with a past history of paraplegia who had a recent hospitalization less than month ago for partial small bowel obstruction resolved medically without surgical intervention. He presents with a 2 day history of shortness of breath that has been worsening. He has no history of lung disease. He has never had any shortness of breath problems in the past. He was found to have a severe anion gap metabolic acidosis with a pH of 6.9 and a base deficit of 25. In addition, he has a new severe acute renal failure. He denies fever, chills. He denies dysuria, frequency of urination, or decreased urination. He self catheters at home through a neobladder, but he states that he has been unable to past 2 days. Critical care medicine is consulted to evaluate and manage his severe acidosis. He was placed on BiPAP due to severe respiratory distress secondary to his acidosis. The remainder of the history and review of systems is negative unless otherwise specified above. Subjective: 10/19: The patient was placed on sodium bicarbonate infusion during the night for severe acidosis. Patient's alert and oriented no dyspnea noted today. Electrolyte abnormalities currently being repleted. Leukocytosis resolving patient continues on sodium bicarbonate infusion at 150 cc/an hour. Concern for right initial wound flap and left heel ulcer, cultures are pending leukocytosis resolving with initiation of Zosyn yesterday. Linezolid added this a.m.. Objective Vital Signs Date Time Temp Pulse Resp B/P Pulse Ox O2 Delivery O2 Flow Rate FiO2 10/19/16 08:22 96 10/19/16 03:00 67 10/19/16 03:00 98.6 18 92/50 10/19/16 00:32 Nasal Cannula 2.00 10/18/16 21:12 21 Intake and Output 10/18/16 10/18/16 10/18/16 07:59 15:59 23:59 Intake Total 30 ml Output Total 1520 ml Balance -1490 ml Result Diagram: 10/19/16 0540 10/19/16 0540 Other Results Laboratory Tests Test 10/18/16 10/18/16 10/19/16 14:05 17:00 05:10 Blood Gas Puncture Site RT RADIAL RT RADIAL RT RADIAL Blood Gas Patient Temperature 98.6 98.6 98.6 Blood Gas HCO3 4 mmol/L 8 mmol/L 12 mmol/L (22-26) (22-26) (22-26) Blood Gas Base Excess -25.1 mmol/L -19.5 mmol/L -15.1 mmol/L (-2-2) (-2-2) (-2-2) Blood Gas Oxygen Saturation 95 % (90-100) 97 % (90-100) 94 % (90-100) Arterial Blood pH 6.99 7.11 7.17 (7.380-7.420) (7.380-7.420) (7.380-7.420) Arterial Blood Partial 18 mmHg (38-42) 27 mmHg (38-42) 34 mmHg (38-42) Pressure CO2 Arterial Blood Partial 125 mmHG 186 mmHG 113 mmHg Pressure O2 (61-120) (61-120) (61-120) Arterial Blood Oxygen Content 14.1 Vol % 13.5 Vol % 11.1 Vol % (12.0-20.0) (12.0-20.0) (12.0-20.0) Arterial Blood 0.7 % (0-4) 0.7 % (0-4) 1.5 % (0-4) Carboxyhemoglobin Arterial Blood Methemoglobin 1.2 % (0-2) 1.2 % (0-2) 1.9 % (0-2) Blood Gas Hemoglobin 10.4 G/DL 9.6 G/DL 8.2 G/DL (12.0-16.0) (12.0-16.0) (12.0-16.0) Oxygen Delivery Device NASAL CANNULA BiPAP NASAL CANNULA Blood Gas Liter Flow 3 L/M 2 L/M Blood Gas Ventilator Setting IPAP10/EPAP5 Blood Gas Inspired Oxygen 40 % Imaging Last Impressions Chest X-Ray 10/18/16 0000 Signed Impressions: Service Date/Time: Tuesday, October 18, 2016 12:44 - CONCLUSION: Possible mild bibasilar atelectasis. Deborah Dean MD Objective Remarks GENERAL: Morbidly obese male, lying in bed, very tachypneic, dyspneic, and respiratory distress, BiPAP HEENT: Normocephalic. Atraumatic. Pupils equal, round, reactive, conjugate. Mucous membranes are moist NECK: Trachea is midline. Large ford and large obese neck prevents the assessment of JVD CHEST: Tachypneic, labored, using accessory muscles to breathe. BiPAP in place CARDIOVASCULAR: Normal rate, regular rhythm. Sinus by telemetry ABDOMEN: Soft, morbidly obese, nontender, nondistended. No guarding. Multiple healed scars around the abdomen, including median scar. There is a colostomy bag that exits the left lower quadrant. There is also a small opening of the patient says his his access to his neobladder in the right lower quadrant. MUSCULOSKELETAL: Radial Pulses 2+. 1+ pitting edema peripherally NEUROLOGICAL: RASS 0. Follows commands. Alert and oriented A/P Assessment and Plan Assessment: 61 YO M with paraplegia who presents with severe acute kidney injury and acute life-threatening metabolic acidosis initially with pH < 6.9. Etiology of his VIJAY is unknown at this point, although occult infection cannot be ruled out. Also, patient is no longer able to self-cath, he is S/P cystostomy catheter placement, urology is following. Assessment: Acute kidney injury Hydronephrosis right kidney Sepsis S/P left nephrectomy, cystectomy with neobladder metabolic acidosis acute respiratory failure requiring NIPPV Left heel [id number] Right issue wound [id number] Leukocytosis Electrolyte abnormalities HTN H/O CABG, cardiac stent S/P C5-C6 fusion, C7 discectomy Plan: Neurologic: -Maintain sleep hygiene, to avoid ICU delirium -Tylenol 650 mg every 6 hours pain -Avoid sedative type medications, as pt has C5-C6 cervical fusion will be a known difficult intubation, if required to be performed Respiratory: - Maintain O2 at 2 L nasal cannula -Incentive spirometry -Bronchodilators when necessary Cardiovascular: -Resume antihypertensives meds as clinically indicated -Resume ASA 81 mg/day - Will resume beta noelle, and clinically indicated, systolic currently in the 90s Renal: -Suprapubic catheter draining -Urology following Dr. Shelton -Follow-up nephrology consult -- Strict I/Os FEN/GI: -Replete electrolytes per ICU protocol - pH 7.1 -Heart healthy diet -Bowel sounds normoactive, monitor ostomy output Heme/ID: -Follow-up lung blood urine cultures -On Zosyn (day2) add Linezolid -Monitor CBC -WBC count improving 20-> 13.2 today Endocrine: Glucose monitoring per ICU protocol -- SSI Prophylaxis: GI Prophylaxis DVT Prophylaxis -- SCDs Lines: Peripheral IV's Dispo: Level 3 Discussed with patient and MECHANICAL SHOVEL OPERATOR at bedside Physician Macarena Blancas MD Oct 19, 2016 10:25
[2016-10-19] MEDS ORDERED: DEXTROSE 50% IN WATER 50 ML SYRINGE IV PRN (10:30)
[2016-10-19] MEDS ORDERED: CALCIUM GLUCONATE INJ 2 GM in SODIUM CHLORIDE 0.9% INJ 100 ML IV ONE (10:30)
[2016-10-19] MEDS ORDERED: POTASSIUM CHLORIDE 25 MEQ EFFERVESCENT TAB PO ONE (10:45)
[2016-10-19] MEDS: INSULIN ASPART SUPPLEMENTAL SCALE SQ SCH ×3 (11:00→21:00)
[2016-10-19] MEDS ORDERED: CEFEPIME INJ 2,000 MG in SODIUM CHLORIDE 0.9% INJ 100 ML IV SCH (11:00)
[2016-10-19] MEDS: LINEZOLID 600 MG PREMIX 300 ML IV SCH (11:25)
[2016-10-19 12:59] LABS: BLOOD GAS BASE EXCESS -10.8 mmol/L (-2-2); BLOOD GAS CARBOXYHEMOGLOBIN 0.5 % (0-4); BLOOD GAS HCO3 15 mmol/L (22-26); BLOOD GAS METHEMOGLOBIN 0.9 % (0-2); BLOOD GAS O2 HGB SATURATION 94 % (90-100); BLOOD GAS PCO2 39 mmHg (38-42); BLOOD GAS PO2 103 mmHg (61-120); BLOOD GAS TOTAL HGB 8.2 G/DL (12.0-16.0); CRITICAL VALUE YES; DRAW SITE LT RADIAL; LITER FLOW 2 L/M; NUMBER OF ARTERIAL PUNCTURES 1; OXYGEN DEVICE NASAL CANNULA; STAT NO; TEMP CORR TO 98.6
[2016-10-19] MEDS: ASPIRIN EC 81 MG TABEC PO SCH (13:22)
--- NOTE | 2016-10-19 17:41 | PD.WCN.NOT ---
Wound Consult Description: Consult for pressure ulcer on buttocks and left foot per Dr Ledezma Communicated with: MIKEY Quick 3 attempts made to call center for Dr London, there was a [facility] automated recording with no option for messages. Recommendation: Please obtain and place patient on Wave rental bed and continue to reposition Q2H Obtain and place patient left foot in heel raiser boots Calazime protectant paste BID and PRN to wounds on scrotum, right ischial, and proximal crease on muscle flap (sacral area) Santyl and NS moistened gauze with dry cover daily to left heel stage IV pressure injury Podiatry consult for debridement of left heel if a surgical candidate Lac Hydrin BID to bilateral lower extremities Additional Information: *Late entry*Patient seen earlier today on for wound evaluation. Patient was alert, however having trouble finding words to form complete sentences with MIKEY Quick aware and at bedside during assessment. Colostomy was visualized and noted to be flush with patient abdomen with no output in pouch. Suggestions for 2 & 3/4 inch wafer and pouching to be used with durga seal were discussed with MIKEY Quick and patient. Patient left heel was visualized after removing rolled gauze, ABD pad, with moistened 4x4's. Wound presents with ~80% boggy adherent yellow/brown slough and ~15% bone and ~5% pink tissue with mild odor and minimal bleeding noted when cleansed with NS and gauze. Wound measured 5.8cm x 7cm x ~1cm. A foam dressing was placed over wound bed and secured with rolled gauze and tape until orders for Santyl and or Podiatry consult for debridement are obtained. Patient states history of Osteomyelitis. Bilateral lower extremities are noted with dark dry scaling brown stained skin that would benefit from lac hydrin BID. Patient was positioned to his right side for assessment of scrotal wound measuring ~2cm x 2cm x <0.1cm of partial thickness skin loss related to moisture as evidenced by the jagged wound margins with 100 % moist pink tissue, no active drainage or odor, and macerated periwound. Right ischium was noted with partial thickness skin loss and 100% moist pink vascular tissue noted with scant sanguinous drainage, no odor, with cleansing. Wound appears to be moisture and friction related as evidenced by the macerated periwound and jagged wound margins. Wound on right ischium measured 1.5cm x 4cm x <0.1cm. Patient states previous muscle flap procedure and is evidenced by the topography visualized on assessment. Proximal to patients muscle flap, on patients lower back where buttocks fold upwards creating two horizontal folds, there is a partial thickness skin loss area in the center of these folds ( sacral area) measuring 1.2cm x 2cm x <0.1cm with maceration noted to periwound with scar tissue and 100% moist pink tissue with no active drainage or odor. The scrotum, right ischium, and sacrum were left open to air and covered in a thick layer of Calazime protectant paste Ostomy Type: Colostomy Complete: Other (2 & 3/4 inch appliance kits ordered with durga seal to prevent leaking for flush stoma) Additional information Left lower quadrant colostomy wafer is intact without leakage noted. There is no effluent noted in pouch upon assessment, however there is moist brown stringy residue on the wafer from previous effluent. Stoma is partially covered in durga seal and difficult to visualize at this time. Patient states he has not eaten much lately and may be contributing to no output. Per RN the patient has audible positive bowel sounds in all four quadrants. Supplies were ordered for appliance change when needed. Yeni Giordano [facility] Oct 19, 2016 17:41
[2016-10-19 19:08] LABS: BLOOD GAS BASE EXCESS -8.6 mmol/L (-2-2); BLOOD GAS CARBOXYHEMOGLOBIN 0.4 % (0-4); BLOOD GAS HCO3 17 mmol/L (22-26); BLOOD GAS O2 HGB SATURATION 93 % (90-100); BLOOD GAS OXYGEN CONTENT 10.4 Vol % (12.0-20.0); BLOOD GAS PCO2 40 mmHg (38-42); BLOOD GAS PO2 94 mmHg (61-120); BLOOD GAS TOTAL HGB 7.9 G/DL (12.0-16.0); TEMP CORR TO 98.6
[2016-10-19 19:09] LABS: CRITICAL VALUE YES
[2016-10-19 19:10] LABS: DRAW SITE LT RADIAL; LITER FLOW 2 L/M; NUMBER OF ARTERIAL PUNCTURES 1; OXYGEN DEVICE NASAL CANNULA; STAT NO
[2016-10-19 20:25] LABS: BICARBONATE 18.1 MEQ/L (21.0-32.0); MAGNESIUM 1.9 MG/DL (1.5-2.5)
[2016-10-19 20:50] LABS: CALCIUM-PROTEIN CORRECTED 6.5 MG/DL (8.5-10.1)
[2016-10-19] MEDS ORDERED: CALCIUM GLUCONATE INJ 2 GM in SODIUM CHLORIDE 0.9% INJ 100 ML IV SCH (21:45)
[2016-10-20] VITALS (17 sets, daily range): BP systolic 86–149; BP diastolic 56–81; PULSE 62–80; RESP 12–22; TEMP 98.4–99.5; O2SAT 91–100
[2016-10-20] MEDS: LINEZOLID 600 MG PREMIX 300 ML IV SCH ×2 (00:08→13:27)
[2016-10-20] MEDS: SODIUM BICARBONATE 8.4% INJ 150 MEQ in DEXTROSE 5% IN WATE 1000ML INJ 1,000 ML IV SCH ×2 (01:17)
[2016-10-20] MEDS: PIPERACIL-TAZO 2.25 GM PREMIX 50 ML IV SCH ×3 (01:18→17:00)
[2016-10-20] MEDS: DOCUSATE SODIUM 50 MG/SENNA 8.6 MG TAB PO SCH ×3 (01:19→21:05)
[2016-10-20] MEDS: POTASSIUM CHLOR 20 MEQ PREMIX 100 ML IV SCH (01:19)
[2016-10-20] MEDS: CHLORHEXIDINE GLUCONATE 2 % 1 PACK (2 CLOTHS) TOP SCH (04:00)
[2016-10-20] MEDS: HEPARIN SODIUM - SQ 10,000 UNITS/ML VIAL SQ SCH ×2 (06:57→18:00)
[2016-10-20 06:58] LABS: AUTOMATED NEUTROPHIL # 8.4 TH/MM3 (1.8-7.7); BASOPHIL # 0.1 TH/MM3 (0-0.2); BASOPHIL % 0.5 % (0.0-2.0); EOSINOPHIL # 0.1 TH/MM3 (0-0.4); EOSINOPHIL % 0.8 % (0.0-4.0); HEMATOCRIT 24.7 % (39.0-51.0); HEMO FLAGS DIFF FINAL; LYMPH % 7.1 % (9.0-44.0); LYMPHOCYTE # 0.7 TH/MM3 (1.0-4.8); MEAN CELL VOLUME 77.9 FL (80.0-100.0); MEAN CORPUSCULAR HGB CONC 32.1 % (32.0-36.0); MONO % 9.9 % (0.0-8.0); NEUT % 81.7 % (16.0-70.0); PLATELET COUNT 231 TH/MM3 (150-450); RED BLOOD COUNT 3.17 MIL/MM3 (4.50-5.90); WHITE BLOOD COUNT 10.3 TH/MM3 (4.0-11.0)
[2016-10-20] MEDS: INSULIN ASPART SUPPLEMENTAL SCALE SQ SCH ×4 (06:59→21:06)
[2016-10-20 07:21] LABS: BICARBONATE 22.6 MEQ/L (21.0-32.0); MAGNESIUM 1.8 MG/DL (1.5-2.5); POTASSIUM 3.2 MEQ/L (3.5-5.1)
[2016-10-20 07:41] LABS: CALCIUM-PROTEIN CORRECTED 6.7 MG/DL (8.5-10.1)
[2016-10-20] MEDS: CALCIUM ACETATE 667 MG CAP PO SCH ×3 (09:29→18:00)
[2016-10-20] MEDS: ASPIRIN EC 81 MG TABEC PO SCH (09:29)
[2016-10-20] MEDS ORDERED: CALCIUM GLUCONATE INJ 2 GM in SODIUM CHLORIDE 0.9% INJ 100 ML IV ONE (10:00)
--- NOTE | 2016-10-20 11:40 | HHI.PR ---
Subjective Patient symptoms today Pt resting comfortably; feeling better Objective Vital Signs Vital Signs Date Time Temp Pulse Resp B/P Pulse Ox O2 Delivery O2 Flow Rate FiO2 10/20/16 09:54 96 Nasal Cannula 2.00 10/20/16 08:00 73 19 109/70 96 10/20/16 08:00 99.5 10/20/16 07:00 70 16 108/60 95 10/20/16 06:30 96 Nasal Cannula 3.00 10/20/16 04:00 98.4 62 12 86/56 100 10/20/16 04:00 62 10/20/16 00:00 62 10/20/16 00:00 98.8 65 20 97 10/19/16 23:00 98.8 65 20 101/55 97 10/19/16 23:00 65 10/19/16 20:00 97.6 69 20 112/59 92 10/19/16 20:00 71 10/19/16 15:00 98.7 71 22 118/56 96 10/19/16 15:00 75 Intake & Output 10/20/16 10/20/16 07:00 19:00 Intake Total 2566 ml Output Total 1600 ml Balance 966 ml IV Total 2566 ml Output Urine Total 1600 ml Stool Total 0 ml Result Diagram: 10/20/1661810/20/16618 Objective Remarks Abd:soft,nt,nd Healy in place and draining cloudy urine 10/20 Abd:soft,nt,nd Healy in place and draining cloudy urine Medications and IVs Current Medications Medications (Trade) Dose Ordered Sig/Yosi Route Start Time Stop Time Status Last Admin Sodium Bicarbonate 150 meq/Dextrose 1,150 ml @ 150 mls/hr Q7H40M IV 10/18/16 15:00 10/20/16 01:17 (Zosyn 2.25 Gm Premix) 50 ml @ 100 mls/hr Q8H IV 10/18/16 17:00 10/20/16 09:29 (Zofran Inj) 4 mg Q6H PRN IV 10/18/16 16:30 10/18/16 18:40 (Heparin Inj) 5,000 units Q12H SQ 10/18/16 18:00 10/20/16 06:57 Miscellaneous Information 1 Q361D XX 10/18/16 16:30 10/18/16 16:30 (Chlorhexidine 2% Cloth) 3 pack Taper DAILY@04 TOP 10/19/16 04:00 10/15/17 03:59 10/20/16 04:00 (Chlorhexidine 2% Cloth) 3 pack UNSCH PRN TOP 10/18/16 16:30 (Margarita-Colace) 1 tab BID PO 10/18/16 21:00 10/20/16 09:29 (Phoslo) 1,334 mg TID PO 10/19/16 09:00 10/20/16 09:29 (D50w (Syr) Inj) 50 ml UNSCH PRN IV 10/19/16 10:30 (Glucagon Inj) 1 mg UNSCH PRN OTHER 10/19/16 10:00 Aspirin 81 mg 81 mg DAILY PO 10/19/16 10:30 10/20/16 09:29 (Zyvox 600 Mg Premix) 300 ml @ 300 mls/hr Q12H IV 10/19/16 11:00 10/20/16 00:08 Assessment and Plan Assessment and Plan 61 y.o male s/p cystoscopy of appendico with placement of healy catheter for 1200cc Check Ucx results Maintain healy catheter Continue ABX and supportive measures 10/20 61 y.o male s/p cystoscopy of appendico with placement of healy catheter for 1200cc with ARF/CRF Creatinine at 6 UCx with GNR's Continue ABX Austyn Shelton DO Oct 20, 2016 11:40
--- NOTE | 2016-10-20 16:34 | HHI.NPPN ---
Subjective History of Present Illness 61-year-old male with past medical history of paraplegia, history of partial small-bowel obstruction, hypertension, hyperlipidemia, ischemic heart disease, chronic kidney disease, arthritis, anemia, history of neobladder formation with neurogenic bladder, left nephrectomy who was admitted with complaint of shortness of breath. The patient mainly came with shortness of breath and he was found to be severely acidotic with a very low pH of 6.99 and bicarb was very low and very high BUN and creatinine. The patient previously has a history of chronic kidney disease, although is not following with any decker operator. His creatinine was 2.1-2.2 which was his baseline when he was admitted last month. Additional Remarks Patient is alert, no SOB, has mild abd. discomfort. Review of Systems General Constitutional: Fatigue Respiratory Lungs: SOB Cardiovascular Cardiac: BAEZ Objective Data Data 10/19/16 10/20/16 19:00 07:00 Intake Total 2975 ml 2566 ml Output Total 1975 ml 1600 ml Balance 1000 ml 966 ml Intake Oral 480 ml IV Total 2495 ml 2566 ml Output Urine Total 1975 ml 1600 ml Stool Total 0 ml 0 ml Vital Signs Date Time Temp Pulse Resp B/P Pulse Ox O2 Delivery O2 Flow Rate FiO2 10/20/16 09:54 96 Nasal Cannula 2.00 10/20/16 08:00 73 19 109/70 96 10/20/16 08:00 99.5 10/20/16 07:00 70 16 108/60 95 10/20/16 06:30 96 Nasal Cannula 3.00 10/20/16 04:00 98.4 62 12 86/56 100 10/20/16 04:00 62 10/20/16 00:00 62 10/20/16 00:00 98.8 65 20 97 10/19/16 23:00 98.8 65 20 101/55 97 10/19/16 23:00 65 10/19/16 20:00 97.6 69 20 112/59 92 10/19/16 20:00 71 -: 10/20/16 0619 10/20/16 0619 Physical Exam General Appearance: Well Nourished, No Acute Distress, Comfortable Eyes Eye Exam: Pupils Equal Throat Throat Exam: Oral Mucosa [place] & Moist Neck Neck Exam: Neck Supple Pulmonary Resp Exam: Breath Sounds Equal, No Distress, Decreased Bases Cardiology CV Exam: Regular, Normal Sinus Rhythm Gastrointestinal/Abdomen GI Exam: Soft, Non-Tender, Bowel Sounds Present Extremeties Extremities Exam: Trace Edema Neurologic Neuro Exam: Alert, Awake, Oriented Psychiatric Psych Exam: Appropriate Responses Assessment/Plan Assessment Summary: VIJAY/Acute Renal Failure, CKD Stage III Electrolyte Assessment: Hypocalcemia, Hypokalemia, Metabolic Acidosis Problem List: (1) Leukocytosis (2) Acidemia (3) Respiratory distress (4) Paraplegia (5) UTI (urinary tract infection) (6) CKD (chronic kidney disease), stage III (7) Acute renal failure Plan Patient has advance stage 3 chronic kidney disease, and develop VIJAY, with severe metabolic acidosis. Also has UTI and obstructive uropathy. Has low K , and calcium, replaced. Urine out put is good. Creatinine is still elevated,slightly better. Acidosis improving. Change IVF and D/C NaHco3. Continue antibiotics, and follow urine out put and BMP. Urology follow up noted. Lynsey Goldman MD Oct 20, 2016 16:34
[2016-10-20] MEDS: SODIUM CHLOR 0.9% 1000 ML INJ 1,000 ML IV SCH (16:45)
--- NOTE | 2016-10-20 20:13 | HHI.CCPN ---
Subjective Remarks/Hospital Course This is a 61-year-old male with a past history of paraplegia who had a recent hospitalization less than month ago for partial small bowel obstruction resolved medically without surgical intervention. He presents with a 2 day history of shortness of breath that has been worsening. He has no history of lung disease. He has never had any shortness of breath problems in the past. He was found to have a severe anion gap metabolic acidosis with a pH of 6.9 and a base deficit of 25. In addition, he has a new severe acute renal failure. He denies fever, chills. He denies dysuria, frequency of urination, or decreased urination. He self catheters at home through a neobladder, but he states that he has been unable to past 2 days. Critical care medicine is consulted to evaluate and manage his severe acidosis. He was placed on BiPAP due to severe respiratory distress secondary to his acidosis. The remainder of the history and review of systems is negative unless otherwise specified above. Subjective: 10/19: The patient was placed on sodium bicarbonate infusion during the night for severe acidosis. Patient's alert and oriented no dyspnea noted today. Electrolyte abnormalities currently being repleted. Leukocytosis resolving patient continues on sodium bicarbonate infusion at 150 cc/an hour. Concern for right initial wound flap and left heel ulcer, cultures are pending leukocytosis resolving with initiation of Zosyn yesterday. Linezolid added this a.m.. 10/20: Patient has good urine output over the last 24 hours, potassium level within normal limits. Bicarbonate level normalized, sodium bicarbonate infusion discontinued the patient continues on normal saline at 100 cc/hr. wound care consult with recommendations regarding wound initiated. Patient with history of MDRO, urine positive for multiple organisms, as well as wound healed now growing gram-negative rods infectious disease consult to appreciate recommendations. Objective Vital Signs Date Time Temp Pulse Resp B/P Pulse Ox O2 Delivery O2 Flow Rate FiO2 10/20/16 09:54 96 Nasal Cannula 2.00 10/20/16 08:00 73 19 109/70 10/20/16 08:00 99.5 10/18/16 21:12 21 Intake and Output 10/19/16 10/19/16 10/20/16 08:00 16:00 00:00 Intake Total 1861 ml 4286 ml Output Total 1300 ml 3075 ml Balance 561 ml 1211 ml Result Diagram: 10/20/16 0619 10/20/16 0619 Other Results Microbiology Date/Time Procedure Status Source Growth 10/18/16 18:09 Urine Culture - Final Complete Urine Catheterized Urine Enterococcus Faecalis Klebsiella Pneumoniae Esbl Pos Proteus Mirabilis Imaging Last Impressions Chest X-Ray 10/18/16 0000 Signed Impressions: Service Date/Time: Tuesday, October 18, 2016 12:44 - CONCLUSION: Possible mild bibasilar atelectasis. Deborah Dean MD Objective Remarks GENERAL: Morbidly obese male, semi-recumbent in bed, in no acute distress HEENT: Normocephalic. Atraumatic. Pupils equal, round, reactive, conjugate. Mucous membranes are moist NECK: Trachea is midline. Large ford and large obese neck prevents the assessment of JVD CHEST: Equal chest rise, breath sounds clear to auscultation, no dyspnea noted remains on 2 L nasal cannula CARDIOVASCULAR: Normal rate, regular rhythm. Sinus by telemetry ABDOMEN: Soft, morbidly obese, nontender, nondistended. No guarding. Multiple healed scars around the abdomen, including median scar. There is a colostomy bag that exits the left lower quadrant, with noticed hardened stool output. Dressing neobladder with Jean catheter C/D/I in the right lower quadrant. MUSCULOSKELETAL: Radial Pulses 2+. 1+ pitting edema peripherally, noted previous right foot amputation NEUROLOGICAL: RASS 0. Follows commands. Alert and oriented A/P Assessment and Plan Assessment: Acute kidney injury Hydronephrosis right kidney Sepsis S/P left nephrectomy, cystectomy with neobladder metabolic acidosis acute respiratory failure requiring NIPPV-resolved Left heel ycyew-ryu-bqhuiurv Right issue wound btxps-lug-kvywhmhi Leukocytosis Electrolyte abnormalities HTN H/O CABG, cardiac stent S/P C5-C6 fusion, C7 discectomy (limited neck mobility) Plan: Neurologic: -Maintain sleep hygiene, to avoid ICU delirium. Consider melatonin PRN -Tylenol 650 mg every 6 hours pain -Avoid sedative type medications, as pt has C5-C6 cervical fusion will be a known difficult intubation, if required to be performed Respiratory: - Maintain O2 at 2 L nasal cannula -Incentive spirometry -Bronchodilators when necessary Cardiovascular: -Resume antihypertensives meds as clinically indicated -Resume ASA 81 mg/day - Normotensive stylet blood pressure low 100's, we'll continue to hold beta noelle at this point in time Renal: -Suprapubic catheter draining -Urology following Dr. Shelton -Follow-up nephrology following, Dr. Goldman -- Strict I/Os FEN/GI: -Replete electrolytes per ICU protocol -Creatinine 6 from 6.2 - 10/20 sodium bicarbonate infusion discontinued, normal saline at 100 cc an hour initiated per nephrology -Heart healthy diet -Bowel sounds normoactive, monitor ostomy output-noted hard stool output- MiraLAX added Heme/ID: -Wound culture - gram-negative rods -blood culture-pending -urine culture-Enterococcus faecalis, Klebsiella, ESBL positive, Proteus -On Zosyn (day3) add Linezolid (day 2) -Monitor CBC - 10/20 ID consulted secondary to MDRO Endocrine: Glucose monitoring per ICU protocol -- SSI Msk: -Wound care consulted follow-up recommendations Prophylaxis: GI Prophylaxis DVT Prophylaxis -- SCDs Lines: Peripheral IV's Dispo: Level 3 Discussed with patient and SENIOR FRONT END DEVELOPER at bedside Physician Macarena Blancas MD Oct 20, 2016 20:13
[2016-10-21] VITALS (10 sets, daily range): BP systolic 115–164; BP diastolic 60–84; PULSE 57–70; RESP 14–20; TEMP 96.7–98.8; O2SAT 95–97
[2016-10-21] MEDS: LINEZOLID 600 MG PREMIX 300 ML IV SCH ×3 (00:56→22:10)
[2016-10-21] MEDS: PIPERACIL-TAZO 2.25 GM PREMIX 50 ML IV SCH ×3 (00:57→18:09)
[2016-10-21] MEDS: CHLORHEXIDINE GLUCONATE 2 % 1 PACK (2 CLOTHS) TOP SCH (04:00)
[2016-10-21] MEDS: SODIUM CHLOR 0.9% 1000 ML INJ 1,000 ML IV SCH ×3 (06:08→22:11)
[2016-10-21] MEDS: HEPARIN SODIUM - SQ 10,000 UNITS/ML VIAL SQ SCH ×2 (06:08→17:58)
[2016-10-21] MEDS: INSULIN ASPART SUPPLEMENTAL SCALE SQ SCH ×4 (06:14→21:00)
--- NOTE | 2016-10-21 08:18 | HHI.PR ---
Subjective Patient symptoms today Pt seen and examined. Feeling OK. Some coughing up of phelm reported by patient. Objective Vital Signs Vital Signs Date Time Temp Pulse Resp B/P Pulse Ox O2 Delivery O2 Flow Rate FiO2 10/21/16 08:01 97 Nasal Cannula 2.00 10/21/16 04:00 57 10/21/16 04:00 96.7 57 16 121/67 97 10/21/16 00:33 95 Nasal Cannula 2.00 10/21/16 00:00 98.2 59 16 115/60 95 10/21/16 00:00 59 10/20/16 20:00 98.8 72 19 141/73 92 10/20/16 20:00 72 10/20/16 18:00 71 22 129/76 93 10/20/16 17:00 76 19 136/70 94 10/20/16 16:00 79 19 137/73 94 10/20/16 15:00 76 17 140/74 92 10/20/16 14:00 80 17 145/71 91 10/20/16 13:00 76 21 146/77 92 10/20/16 12:00 98.9 77 19 136/66 92 10/20/16 11:00 72 18 139/72 94 10/20/16 10:00 72 14 149/81 95 10/20/16 09:54 96 Nasal Cannula 2.00 10/20/16 09:00 75 21 116/77 95 Intake & Output 10/21/16 10/21/16 06:59 18:59 Intake Total 1491 ml Output Total 1800 ml Balance -309 ml IV Total 1491 ml Output Urine Total 1800 ml Stool Total 0 ml Emesis 0 ml # Bowel Movements 1 Result Diagram: 10/20/1661810/20/16618 Objective Remarks Abd:soft,nt,nd Healy in place and draining cloudy urine 10/20 Abd:soft,nt,nd Healy in place and draining cloudy urine 10/21 Abd:soft,nt,nd Healy draining clear urine Medications and IVs Current Medications Medications (Trade) Dose Ordered Sig/Yosi Route Start Time Stop Time Status Last Admin (Zosyn 2.25 Gm Premix) 50 ml @ 100 mls/hr Q8H IV 10/18/16 17:00 10/21/16 00:57 (Zofran Inj) 4 mg Q6H PRN IV 10/18/16 16:30 10/18/16 18:40 (Heparin Inj) 5,000 units Q12H SQ 10/18/16 18:00 10/21/16 06:08 Miscellaneous Information 1 Q361D XX 10/18/16 16:30 10/18/16 16:30 (Chlorhexidine 2% Cloth) 3 pack Taper DAILY@04 TOP 10/19/16 04:00 10/15/17 03:59 10/20/16 04:00 (Chlorhexidine 2% Cloth) 3 pack UNSCH PRN TOP 10/18/16 16:30 (Margarita-Colace) 1 tab BID PO 10/18/16 21:00 10/20/16 21:05 (Phoslo) 1,334 mg TID PO 10/19/16 09:00 10/20/16 18:00 (D50w (Syr) Inj) 50 ml UNSCH PRN IV 10/19/16 10:30 (Glucagon Inj) 1 mg UNSCH PRN OTHER 10/19/16 10:00 Aspirin 81 mg 81 mg DAILY PO 10/19/16 10:30 10/20/16 09:29 Linezolid 300 ml @ 300 mls/hr Q12H IV 10/19/16 11:00 10/21/16 00:56 (NS 1000 ml Inj) 1,000 ml @ 100 mls/hr Q10H IV 10/20/16 16:45 10/21/16 06:08 (Miralax) 17 gm DAILY PO 10/20/16 20:00 Assessment and Plan Assessment and Plan 61 y.o male s/p cystoscopy of appendico with placement of healy catheter for 1200cc Check Ucx results Maintain healy catheter Continue ABX and supportive measures 10/20 61 y.o male s/p cystoscopy of appendico with placement of healy catheter for 1200cc with ARF/CRF Creatinine at 6 UCx with GNR's Continue ABX 10/21 61 y.o male s/p cystoscopy of appendico with placement of healy catheter for 1200cc with ARF/CRF Creatinine at 6.0 from yesterday; today's pending UCx sensitive to Zosyn Maintain catheter drainage. Austyn Shelton DO Oct 21, 2016 08:18
[2016-10-21] MEDS: POLYETHYLENE GLYCOL 17 GM PKG PO SCH (09:00)
[2016-10-21] MEDS: DOCUSATE SODIUM 50 MG/SENNA 8.6 MG TAB PO SCH ×2 (09:00→20:38)
[2016-10-21] MEDS: CALCIUM ACETATE 667 MG CAP PO SCH (09:56)
[2016-10-21] MEDS: ASPIRIN EC 81 MG TABEC PO SCH (09:56)
--- NOTE | 2016-10-21 10:11 | HHI.CCPN ---
Subjective Remarks/Hospital Course This is a 61-year-old male with a past history of paraplegia who had a recent hospitalization less than month ago for partial small bowel obstruction resolved medically without surgical intervention. He presents with a 2 day history of shortness of breath that has been worsening. He has no history of lung disease. He has never had any shortness of breath problems in the past. He was found to have a severe anion gap metabolic acidosis with a pH of 6.9 and a base deficit of 25. In addition, he has a new severe acute renal failure. He denies fever, chills. He denies dysuria, frequency of urination, or decreased urination. He self catheters at home through a neobladder, but he states that he has been unable to past 2 days. Critical care medicine is consulted to evaluate and manage his severe acidosis. He was placed on BiPAP due to severe respiratory distress secondary to his acidosis. The remainder of the history and review of systems is negative unless otherwise specified above. Subjective: 10/19: The patient was placed on sodium bicarbonate infusion during the night for severe acidosis. Patient's alert and oriented no dyspnea noted today. Electrolyte abnormalities currently being repleted. Leukocytosis resolving patient continues on sodium bicarbonate infusion at 150 cc/an hour. Concern for right initial wound flap and left heel ulcer, cultures are pending leukocytosis resolving with initiation of Zosyn yesterday. Linezolid added this a.m.. 10/20: Patient has good urine output over the last 24 hours, potassium level within normal limits. Bicarbonate level normalized, sodium bicarbonate infusion discontinued the patient continues on normal saline at 100 cc/hr. wound care consult with recommendations regarding wound initiated. Patient with history of MDRO, urine positive for multiple organisms, as well as wound healed now growing gram-negative rods infectious disease consult to appreciate recommendations. 10/20: No acute issues overnight. Urine output increased, greater than 3 L in the last 24hrs. BMP pending this a.m.. Patient complained of pain will initiate home dosing of oxycodone PRN. Patient now tolerating PO renal diet. Objective Vital Signs Date Time Temp Pulse Resp B/P Pulse Ox O2 Delivery O2 Flow Rate FiO2 10/21/16 08:01 97 Nasal Cannula 2.00 10/21/16 04:00 57 10/21/16 04:00 96.7 16 121/67 10/18/16 21:12 21 Intake and Output 10/20/16 10/20/16 10/21/16 08:00 16:00 00:00 Intake Total 1255 ml 1703 ml 766 ml Output Total 500 ml 1276 ml 1250 ml Balance 755 ml 427 ml -484 ml Result Diagram: 10/20/16 0619 10/20/16 0619 Other Results Microbiology Date/Time Procedure Status Source Growth 10/18/16 18:09 Urine Culture - Final Complete Urine Catheterized Urine Enterococcus Faecalis Klebsiella Pneumoniae Esbl Pos Proteus Mirabilis 10/19/16 16:00 Gram Stain - Final Complete Sputum Endotracheal 10/19/16 16:00 Sputum Culture - Final Complete Sputum Endotracheal HEAVY GROWTH NORMAL RESPIRATORY CIERA Imaging Last Impressions Chest X-Ray 10/18/16 0000 Signed Impressions: Service Date/Time: Tuesday, October 18, 2016 12:44 - CONCLUSION: Possible mild bibasilar atelectasis. Deborah Dean MD Objective Remarks GENERAL: Morbidly obese male, semi-recumbent in bed, in no acute distress HEENT: Normocephalic. Atraumatic. Pupils equal, round, reactive, conjugate. Mucous membranes are moist NECK: Trachea is midline. Large ford and large obese neck prevents the assessment of JVD CHEST: Equal chest rise, breath sounds clear to auscultation, no dyspnea noted remains on 2 L nasal cannula CARDIOVASCULAR: Normal rate, regular rhythm. Sinus by telemetry ABDOMEN: Soft, morbidly obese, nontender, nondistended. No guarding. Multiple healed scars around the abdomen, including median scar. There is a colostomy bag that exits the left lower quadrant, with stool output. Dressing neobladder with Jean catheter C/D/I in the right lower quadrant, draining clear urine. MUSCULOSKELETAL: Radial Pulses 2+. 1+ pitting edema peripherally, noted previous right foot amputation NEUROLOGICAL: RASS 0. Follows commands. Alert and oriented A/P Assessment and Plan Assessment: Acute kidney injury-secondary to obstructive uropathy and sepsis Hydronephrosis right kidney Sepsis S/P left nephrectomy, cystectomy with neobladder metabolic acidosis acute respiratory failure requiring NIPPV Left heel tmvti-hal-snynsflh Right issue wound loxad-mhi-nfewxlge Leukocytosis Electrolyte abnormalities HTN H/O CABG, cardiac stent S/P C5-C6 fusion, C7 discectomy Plan: Neurologic: -Maintain sleep hygiene, to avoid ICU delirium -Tylenol 650 mg every 6 hours pain -Avoid sedative type medications, as pt has C5-C6 cervical fusion will be a known difficult intubation, if required to be performed Respiratory: - Maintain O2 at 2 L nasal cannula -Incentive spirometry and Acapella -Bronchodilators when necessary Cardiovascular: -Resume antihypertensives meds as clinically indicated SBP low 100's -Resume ASA 81 mg/day - Will resume beta noelle, and clinically indicated, systolic currently in the 90s Renal: -Neobladder catheter draining -Urology following Dr. Shelton -Follow-up nephrology Following -- Strict I/Os FEN/GI: -Replete electrolytes per ICU protocol -Heart healthy diet -Bowel sounds normoactive, monitor ostomy output Heme/ID: -Follow-up lung blood urine cultures -On Zosyn (day3) add Linezolid -Monitor CBC -WBC count improving Endocrine: Glucose monitoring per ICU protocol -- SSI Prophylaxis: GI Prophylaxis DVT Prophylaxis -- SCDs Lines: Peripheral IV's Dispo: Level 2 Discussed with patient and POST ANESTHESIA ROOM NURSE at bedside. [facility] Plan transfer to floor. Physician Macarena Blancas MD Oct 21, 2016 10:11
[2016-10-21 11:04] LABS: HEMATOCRIT 24.4 % (39.0-51.0); MEAN CELL VOLUME 78.3 FL (80.0-100.0); MEAN CORPUSCULAR HEMOGLOBIN 25.3 PG (27.0-34.0); MEAN CORPUSCULAR HGB CONC 32.3 % (32.0-36.0); PLATELET COUNT 196 TH/MM3 (150-450); RED BLOOD COUNT 3.11 MIL/MM3 (4.50-5.90); RED CELL DISTRIBUTION WIDTH 20.2 % (11.6-17.2); REVIEW FLAG FINAL
[2016-10-21 11:09] LABS: INTERNATIONAL NORMALIZED RATIO 1.2 RATIO; PROTHROMBIN TIME - PATIENT 12.9 SEC (9.8-11.6)
[2016-10-21 11:30] LABS: BICARBONATE 22.1 MEQ/L (21.0-32.0); MAGNESIUM 1.6 MG/DL (1.5-2.5)
[2016-10-21 11:53] LABS: POTASSIUM 2.9 MEQ/L (3.5-5.1)
[2016-10-21 12:34] LABS: CALCIUM-PROTEIN CORRECTED 6.8 MG/DL (8.5-10.1)
--- NOTE | 2016-10-21 12:34 | PD.CONS ---
History of Present Illness Service Infectious disease Consult Requested By Dr London Reason for Consult Evaluate patient with urosepsis, wound infection, and history of MDR oh Primary Care Physician Non-Staff Diagnoses: History of Present Illness Patient seen and examined. Records reviewed. Patient is a 61-year-old male, percent to the hospital complaining of 2 day history of worsening shortness of breath. Patient is paraplegic and states mostly in his motorized wheelchair. He has not been having any cough. He has complicated history in that he has had multiple surgeries. He had left nephrectomy for a calcified kidney possibly related to chronic infection. He also had an ileal conduit as a young patient and it eventually created problem and he subsequently underwent placement of a [place] pouch. He had appendicovesicostomy done and self catheterize himself. Patient stated that he has not been able to catheterize himself over the last 2 days. There's been no fever or chills. He denies any congestion or any significant cough or sputum production. Patient also has chronic decubitus because of his bedridden state. On presentation patient had leukocytosis. He has significant acidosis and very high creatinine. Imaging study showed evidence of right hydronephrosis. Healy catheter insertion was tried but was not successful, and urology was consult. He was also unable to place it, so the patient went to the operating room and had cystoscopy and placement of the Healy catheter under anesthesia. Patient's WBC was quite high, and that has improved. His creatinine is still elevated but slightly better compared to what it was on admission. He has urine output which seems adequate. Renal is following the patient. Patient also has multiple decubitus ulcers including the left heel and in the buttock area. Urine culture is growing Proteus, Klebsiella ESBL positive, and Enterococcus faecalis. Wound culture on the left heel which is all the way to the bone has Proteus, second gram-negative ivan, and staph species. Infectious disease consultation has been requested to make recommendation regarding his antibiotics. Review of Systems Constitutional: DENIES: Fever, Chills Eyes: DENIES: Eye pain Ears, nose, mouth, throat: DENIES: Nasal discharge, Oral lesions, Throat pain, Ear Pain, Sinus Pain Respiratory: COMPLAINS OF: Shortness of breath, DENIES: Cough, Sputum production Cardiovascular: DENIES: Chest pain, Palpitations, Syncope Gastrointestinal: DENIES: Abdominal pain, Nausea, Vomiting Musculoskeletal: DENIES: Neck pain Integumentary: DENIES: Rash Neurologic: COMPLAINS OF: Localized weakness, DENIES: Headache Psychiatric: DENIES: Hallucinations Past Family Social History Allergies: Coded Allergies: Compazine (Verified Allergy, Severe, MUSCLE CONTRACTURES, 08/29/16) Contrast Media (Verified Allergy, Severe, Anaphylaxis, 08/29/16) Thorazine (Verified Allergy, Severe, MUSCLE CONTRACTURES, 08/29/16) *MDRO Multi-Drug Resistant Organism (Verified Adverse Reaction, Unknown, MRSA, 10/21/16) 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 & 10/20/16 ESBL-KL PN- (urine) 10/18/16 Past Medical History Anemia, unknown etiology Spina bifida Arthritis Hyperlipidemia Coronary artery disease Hypertension Paraplegia Chronic renal insufficiency, unknown stage Past Surgical History Neobladder reconstruction, "[place] pouch " Appendectomy Ivan in left femur Band around pelvis and hip Coronary artery bypass grafting Cholecystectomy Coronary artery stent Appendicovesicostomy Colostomy Left nephrectomy Tonsillectomy C5 6 fusion C7 discectomy Active Ordered Medications Albuterol Ecotrin PhosLo Heparin Insulin Zyvox Zofran Oxycodone Zosyn MiraLAX Potassium Margarita-Colace Family History Noncontributory to current ID problem Social History Lives at home Denies smoking Denies alcohol abuse Denies illicit drug use Physical Exam Vital Signs Vital Signs Date Time Temp Pulse Resp B/P Pulse Ox O2 Delivery O2 Flow Rate FiO2 10/21/16 08:01 97 Nasal Cannula 2.00 10/21/16 04:00 57 10/21/16 04:00 96.7 57 16 121/67 97 10/21/16 00:33 95 Nasal Cannula 2.00 10/21/16 00:00 98.2 59 16 115/60 95 10/21/16 00:00 59 10/20/16 20:00 98.8 72 19 141/73 92 10/20/16 20:00 72 10/20/16 18:00 71 22 129/76 93 10/20/16 17:00 76 19 136/70 94 10/20/16 16:00 79 19 137/73 94 10/20/16 15:00 76 17 140/74 92 10/20/16 14:00 80 17 145/71 91 10/20/16 13:00 76 21 146/77 92 Physical Exam GENERAL: Patient is an obese, well-developed male, awake and alert, not in respiratory distress. SKIN: Warm and dry. No generalized rash, no ecchymoses and no evidence of embolic lesions. HEAD: Atraumatic. Normocephalic. No temporal wasting, or tenderness. EYES: [place] conjunctiva. No petechia or hemorrhage. Pupils equal, round and reactive to light. Extraocular movements full and intact. No scleral icterus. No injection or drainage. EARS, NOSE AND THROAT: Nose without bleeding or purulent nasal discharge. No sinus tenderness. Mucous membranes pink and moist. No oral lesions noted. No exudate. No oral thrush. NECK: Trachea midline. Supple and not tender, no meningeal signs CARDIOVASCULAR: Regular rate and rhythm. No murmurs, rubs or gallops heard RESPIRATORY: Clear to auscultation. Breath sounds equal bilaterally. No rales , wheezing or rhonchi. Decreased at bases ABDOMEN: Soft, obese, multiple scars noted. Has colostomy on L with some stol. Healy in RLQ into his neobladder. Bowel sounds present and normoactive. No guarding. No rebound. EXTREMITIES: No clubbing, cyanosis. S/P amputation on his RLE, ?[place], well healed stump. L heel with ulcer, with brown slough, (+) odor. No calf tenderness. Well perfused and warm. NEUROLOGICAL: Awake and alert. Cranial nerves grossly intact. Good strength in his UE BACK: Multiple dressings in place over wounds, not very deep PSYCHIATRIC: Normal affect, calm and cooperative. LINE: No evidence of infection : Has healy in his neobladder Laboratory Laboratory Tests Test 10/21/16 10:37 White Blood Count 9.0 Red Blood Count 3.11 Hemoglobin 7.9 Hematocrit 24.4 Mean Corpuscular Volume 78.3 Mean Corpuscular Hemoglobin 25.3 Mean Corpuscular Hemoglobin 32.3 Concent Red Cell Distribution Width 20.2 Platelet Count 196 Mean Platelet Volume 6.7 Prothrombin Time 12.9 Prothromb Time International 1.2 Ratio Sodium Level 143 Potassium Level 2.9 Chloride Level 107 Carbon Dioxide Level 22.1 Anion Gap 14 Blood Urea Nitrogen 71 Creatinine 5.60 Estimat Glomerular Filtration 10 Rate Random Glucose 118 Calcium Level 6.3 Phosphorus Level 4.9 Magnesium Level 1.6 Date/Time Procedure Status Source Growth 10/19/16 16:00 Gram Stain - Final Complete Sputum Endotracheal 10/19/16 16:00 Sputum Culture - Final Complete Sputum Endotracheal HEAVY GROWTH NORMAL RESPIRATORY CIERA 10/18/16 18:09 Urine Culture - Final Complete Urine Catheterized Urine Enterococcus Faecalis Klebsiella Pneumoniae Esbl Pos Proteus Mirabilis 10/18/16 18:09 Fungal Smear Received Urine Catheterized Urine Pending 10/18/16 18:09 Fungal Culture Received Urine Catheterized Urine Pending 10/18/16 18:09 Acid Fast Stain - Final Resulted Urine Catheterized Urine NO ACID FAST BACILLI SEEN 10/18/16 18:09 Mycobacterial Culture Resulted Urine Catheterized Urine Pending 10/18/16 18:09 Cancelled Urine Catheterized Urine 10/18/16 15:05 Aerobic Blood Culture - Preliminary Resulted Blood Peripheral NO GROWTH IN 3 DAYS 10/18/16 15:05 Anaerobic Blood Culture - Preliminary Resulted Blood Peripheral NO GROWTH IN 3 DAYS Result Diagram: 10/21/16 1037 10/21/16 1037 Imaging RADIOLOGY STUDIES/FILMS REVIEWED Last Impressions Renal Ultrasound 10/18/16 0000 Signed Impressions: Service Date/Time: Tuesday, October 18, 2016 15:27 - CONCLUSION: 1. Hydronephrosis of the right kidney. 2. Cystectomy with neobladder. Alok Upton MD Chest X-Ray 10/18/16 0000 Signed Impressions: Service Date/Time: Tuesday, October 18, 2016 12:44 - CONCLUSION: Possible mild bibasilar atelectasis. Deborah Dean MD Abdomen/Pelvis CT 10/18/16 0000 Signed Impressions: Service Date/Time: Tuesday, October 18, 2016 16:07 - CONCLUSION: 1. There is hydronephrosis of the right kidney similar to previous study with neobladder and ileostomy. 2. 3 mm nonobstructing right renal calculus. 3. Left nephrectomy. Alok Upton MD Assessment and Plan Assessment and Plan IMPRESSION Urosepsis due to obstruction, and inability to do self cath, with R hydro on imaging - UC Proteus, Kleb ESBL and Enterococcus CKD, creatinine still high Paraplegia Hx spina bifida Decubitus L Heel, (+) polymicrobial RECOMMENDATION Repeat UA and C/S Follow C/S Continue Zosyn and Zyvox Wound care Monitor progress I will make further recommendation on course of Rx once work-up completed I will follow along with you Thank you for this consultation Discussed Condition With Explained plan to the patient Vira Enrique MD Oct 21, 2016 12:34
[2016-10-21] MEDS ORDERED: POTASSIUM CHLORIDE 25 MEQ EFFERVESCENT TAB PO ONE (13:00)
--- NOTE | 2016-10-21 16:53 | HHI.NPPN ---
Subjective History of Present Illness 61-year-old male with past medical history of paraplegia, history of partial small-bowel obstruction, hypertension, hyperlipidemia, ischemic heart disease, chronic kidney disease, arthritis, anemia, history of neobladder formation with neurogenic bladder, left nephrectomy who was admitted with complaint of shortness of breath. The patient mainly came with shortness of breath and he was found to be severely acidotic with a very low pH of 6.99 and bicarb was very low and very high BUN and creatinine. The patient previously has a history of chronic kidney disease, although is not following with any counter maker. His creatinine was 2.1-2.2 which was his baseline when he was admitted last month. Additional Remarks Patient is alert, feeling better, no SOB, no abd. pain. Review of Systems General Constitutional: Fatigue Respiratory Lungs: SOB Cardiovascular Cardiac: BAEZ Objective Data Data 10/20/16 10/21/16 19:00 07:00 Intake Total 1703 ml 1491 ml Output Total 1276 ml 1800 ml Balance 427 ml -309 ml Intake Oral 720 ml IV Total 983 ml 1491 ml Output Urine Total 1275 ml 1800 ml Stool Total 1 ml 0 ml Emesis 0 ml # Bowel Movements 1 Vital Signs Date Time Temp Pulse Resp B/P Pulse Ox O2 Delivery O2 Flow Rate FiO2 10/21/16 16:00 97.4 70 20 154/84 95 10/21/16 14:31 96.7 66 20 164/83 96 10/21/16 12:51 19 10/21/16 12:00 62 10/21/16 12:00 98.8 62 19 152/76 96 10/21/16 10:00 67 10/21/16 08:01 97 Nasal Cannula 2.00 10/21/16 08:00 98.0 60 17 143/72 97 10/21/16 08:00 60 10/21/16 04:00 57 10/21/16 04:00 96.7 57 16 121/67 97 10/21/16 00:33 95 Nasal Cannula 2.00 10/21/16 00:00 98.2 59 16 115/60 95 10/21/16 00:00 59 10/20/16 20:00 98.8 72 19 141/73 92 10/20/16 20:00 72 10/20/16 18:00 71 22 129/76 93 10/20/16 17:00 76 19 136/70 94 -: 10/21/16 1037 10/21/16 1037 Physical Exam General Appearance: Well Nourished, No Acute Distress, Comfortable Eyes Eye Exam: Pupils Equal Throat Throat Exam: Oral Mucosa [place] & Moist Neck Neck Exam: Neck Supple Pulmonary Resp Exam: Breath Sounds Equal, No Distress, Decreased Bases Cardiology CV Exam: Regular, Normal Sinus Rhythm Gastrointestinal/Abdomen GI Exam: Soft, Non-Tender, Bowel Sounds Present Extremeties Extremities Exam: Trace Edema Neurologic Neuro Exam: Alert, Awake, Oriented Psychiatric Psych Exam: Appropriate Responses Assessment/Plan Assessment Summary: VIJAY/Acute Renal Failure, CKD Stage III Electrolyte Assessment: Hypocalcemia, Hypokalemia, Metabolic Acidosis Problem List: (1) Leukocytosis (2) Acidemia (3) Respiratory distress (4) Paraplegia (5) UTI (urinary tract infection) (6) CKD (chronic kidney disease), stage III (7) Acute renal failure Plan Patient has advance stage 3 chronic kidney disease, and develop VIJAY, with severe metabolic acidosis. Also has UTI and obstructive uropathy. Has low K , and calcium, replaced. Urine out put is good. Creatinine is slightly better. Acidosis improved. Now on IVF, with NS. Follow urine out put and BMP. Lynsey Goldman MD Oct 21, 2016 16:53
[2016-10-21] MEDS: CALCITRIOL 0.25 MCG CAP PO SCH (18:05)
[2016-10-21] MEDS ORDERED: DOFETILIDE 250 MCG CAP PO SCH (21:00)
[2016-10-21] MEDS: CALCIUM CARBONATE 1.25 GM (CA 500 MG) TAB PO SCH (22:10)
[2016-10-22] VITALS (7 sets, daily range): BP systolic 120–189; BP diastolic 80–92; PULSE 54–66; RESP 18–20; TEMP 96.4–98.1; O2SAT 97–98
[2016-10-22] MEDS: PIPERACIL-TAZO 2.25 GM PREMIX 50 ML IV SCH ×3 (01:34→17:29)
[2016-10-22] MEDS: CHLORHEXIDINE GLUCONATE 2 % 1 PACK (2 CLOTHS) TOP SCH (04:00)
[2016-10-22 05:57] LABS: BICARBONATE 24.5 MEQ/L (21.0-32.0); POTASSIUM 3.3 MEQ/L (3.5-5.1)
[2016-10-22] MEDS: CALCIUM CARBONATE 1.25 GM (CA 500 MG) TAB PO SCH ×3 (05:58→21:17)
[2016-10-22] MEDS: HEPARIN SODIUM - SQ 10,000 UNITS/ML VIAL SQ SCH ×2 (05:58→17:30)
[2016-10-22 06:00] LABS: HEMATOCRIT 25.4 % (39.0-51.0); MEAN CORPUSCULAR HEMOGLOBIN 24.6 PG (27.0-34.0); MEAN CORPUSCULAR HGB CONC 30.8 % (32.0-36.0); PLATELET COUNT 217 TH/MM3 (150-450); RED BLOOD COUNT 3.17 MIL/MM3 (4.50-5.90); RED CELL DISTRIBUTION WIDTH 19.6 % (11.6-17.2); REVIEW FLAG FINAL; WHITE BLOOD COUNT 9.7 TH/MM3 (4.0-11.0)
[2016-10-22 06:20] LABS: CALCIUM-PROTEIN CORRECTED 7.2 MG/DL (8.5-10.1)
[2016-10-22] MEDS: INSULIN ASPART SUPPLEMENTAL SCALE SQ SCH ×4 (06:30→20:09)
[2016-10-22] MEDS ORDERED: POTASSIUM CHLORIDE 20 MEQ CONTROLLED RELEASE TAB PO ONE (06:45)
[2016-10-22] MEDS ORDERED: CALCIUM GLUCONATE 10% 1 GM/10 ML VIAL IV PUSH ONE (06:45)
[2016-10-22] MEDS ORDERED: CALCIUM GLUCONATE INJ 1 GM in SODIUM CHLORIDE 0.9% INJ 100 ML IV ONE (07:00)
[2016-10-22] MEDS: SODIUM CHLOR 0.9% 1000 ML INJ 1,000 ML IV SCH ×2 (08:19→20:09)
[2016-10-22] MEDS: DOCUSATE SODIUM 50 MG/SENNA 8.6 MG TAB PO SCH ×2 (08:20→20:09)
[2016-10-22] MEDS: ASPIRIN EC 81 MG TABEC PO SCH (08:21)
[2016-10-22] MEDS: POLYETHYLENE GLYCOL 17 GM PKG PO SCH (08:21)
[2016-10-22] MEDS: CALCITRIOL 0.25 MCG CAP PO SCH (08:21)
[2016-10-22] MEDS: LINEZOLID 600 MG PREMIX 300 ML IV SCH (11:56)
--- NOTE | 2016-10-22 12:32 | HHI.PR ---
Subjective Patient symptoms today Pt seen and examined. Feeling alright. Moderate appetite. Healy with clear urine. Creatinine down to 5.6. Baseline in 2 range according to the patient. Objective Vital Signs Vital Signs Date Time Temp Pulse Resp B/P Pulse Ox O2 Delivery O2 Flow Rate FiO2 10/22/16 08:00 97.3 65 19 177/87 97 10/22/16 07:03 18 10/22/16 04:00 97.8 62 18 132/85 98 10/22/16 00:00 98.1 62 18 155/81 98 10/21/16 20:00 97.8 67 16 155/83 97 10/21/16 20:00 66 10/21/16 16:00 97.4 70 20 154/84 95 10/21/16 14:31 96.7 66 20 164/83 96 Intake & Output 10/22/16 10/22/16 07:00 19:00 Intake Total 1770 ml 120 ml Output Total 2125 ml Balance -355 ml 120 ml Intake Oral 240 ml 120 ml IV Total 1530 ml Output Urine Total 2025 ml Stool Total 100 ml Result Diagram: 10/22/16 0453 10/22/16 0453 Objective Remarks Abd:soft,nt,nd Healy in place and draining cloudy urine 10/20 Abd:soft,nt,nd Healy in place and draining cloudy urine 10/21 Abd:soft,nt,nd Healy draining clear urine 10/22 Abd:soft,nt,nd Healy draining clear urine Medications and IVs Current Medications Medications (Trade) Dose Ordered Sig/[place]osi Route Start Time Stop Time Status Last Admin (Zosyn 2.25 Gm Premix) 50 ml @ 100 mls/hr Q8H IV 10/18/16 17:00 10/22/16 08:21 (Zofran Inj) 4 mg Q6H PRN IV 10/18/16 16:30 10/18/16 18:40 (Heparin Inj) 5,000 units Q12H SQ 10/18/16 18:00 10/22/16 05:58 Miscellaneous Information 1 Q361D XX 10/18/16 16:30 10/18/16 16:30 (Chlorhexidine 2% Cloth) 3 pack Taper DAILY@04 TOP 10/19/16 04:00 10/15/17 03:59 10/20/16 04:00 (Chlorhexidine 2% Cloth) 3 pack UNSCH PRN TOP 10/18/16 16:30 (Margarita-Colace) 1 tab BID PO 10/18/16 21:00 10/21/16 20:38 (D50w (Syr) Inj) 50 ml UNSCH PRN IV 10/19/16 10:30 (Glucagon Inj) 1 mg UNSCH PRN OTHER 10/19/16 10:00 Aspirin 81 mg 81 mg DAILY PO 10/19/16 10:30 10/22/16 08:21 Linezolid 300 ml @ 300 mls/hr Q12H IV 10/19/16 11:00 10/22/16 11:56 (NS 1000 ml Inj) 1,000 ml @ 100 mls/hr Q10H IV 10/20/16 16:45 10/22/16 08:19 (Miralax) 17 gm DAILY PO 10/20/16 20:00 (Roxicodone) 10 mg Q6H PRN PO 10/21/16 10:15 10/22/16 11:49 (Rocaltrol) 0.5 mcg DAILY PO 10/21/16 17:00 10/22/16 08:21 (Oscal) 1,000 mg Q8HR PO 10/21/16 22:00 10/22/16 05:58 Assessment and Plan Assessment and Plan 61 y.o male s/p cystoscopy of appendico with placement of healy catheter for 1200cc Check Ucx results Maintain healy catheter Continue ABX and supportive measures 10/20 61 y.o male s/p cystoscopy of appendico with placement of healy catheter for 1200cc with ARF/CRF Creatinine at 6 UCx with GNR's Continue ABX 10/21 61 y.o male s/p cystoscopy of appendico with placement of healy catheter for 1200cc with ARF/CRF Creatinine at 6.0 from yesterday; today's pending UCx sensitive to Zosyn Maintain catheter drainage. 10/22 61 y.o male s/p cystoscopy of appendico with placement of healy catheter for 1200cc with ARF/CRF Creatinine at 5.6 today UCx sensitive to Zosyn Maintain catheter drainage. Austyn Shelton DO Oct 22, 2016 12:32
[2016-10-22] MEDS: hydrALAZINE HCL 50 MG TAB PO SCH ×3 (13:13→21:17)
--- NOTE | 2016-10-22 13:54 | HHI.PR ---
Subjective Remarks Follow-up for acute renal failure secondary to obstruction, sepsis, infected wound Patient's nurse is at the bedside during the interview. Patient had no complaints. He stated that his abdominal pain has improved. Patient remains afebrile. Objective Vitals Vital Signs Date Time Temp Pulse Resp B/P Pulse Ox O2 Delivery O2 Flow Rate FiO2 10/22/16 12:00 96.8 58 20 188/92 98 10/22/16 08:00 56 10/22/16 08:00 97.3 65 19 177/87 97 10/22/16 07:03 18 10/22/16 04:00 97.8 62 18 132/85 98 10/22/16 00:00 98.1 62 18 155/81 98 10/21/16 20:00 97.8 67 16 155/83 97 10/21/16 20:00 66 10/21/16 16:00 97.4 70 20 154/84 95 10/21/16 14:31 96.7 66 20 164/83 96 I/O 10/21/16 10/21/16 10/21/16 10/22/16 10/22/16 10/22/16 07:00 15:00 23:00 07:00 15:00 23:00 Intake Total 725 ml 960 ml 394 ml 1376 ml 1080 ml Output Total 550 ml 1200 ml 1325 ml 800 ml 1400 ml Balance 175 ml -240 ml -931 ml 576 ml -320 ml Intake Oral 960 ml 240 ml 1080 ml IV Total 725 ml 394 ml 1136 ml Output Urine Total 550 ml 850 ml 1225 ml 800 ml 1000 ml Stool Total 350 ml 100 ml 400 ml # Bowel Movements 1 1 Result Diagram: 10/22/16 0453 10/22/16 0453 Imaging Last Impressions Renal Ultrasound 10/18/16 0000 Signed Impressions: Service Date/Time: Tuesday, October 18, 2016 15:27 - CONCLUSION: 1. Hydronephrosis of the right kidney. 2. Cystectomy with neobladder. Alok Upton MD Chest X-Ray 10/18/16 0000 Signed Impressions: Service Date/Time: Tuesday, October 18, 2016 12:44 - CONCLUSION: Possible mild bibasilar atelectasis. Deborah Dean MD Abdomen/Pelvis CT 10/18/16 0000 Signed Impressions: Service Date/Time: Tuesday, October 18, 2016 16:07 - CONCLUSION: 1. There is hydronephrosis of the right kidney similar to previous study with neobladder and ileostomy. 2. 3 mm nonobstructing right renal calculus. 3. Left nephrectomy. Alok Upton MD Objective Remarks GENERAL: Morbidly obese male, semi-recumbent in bed, in no acute distress HEENT: Normocephalic. Atraumatic. Pupils equal, round, reactive, conjugate. Mucous membranes are moist NECK: Trachea is midline. Large ford and large obese neck prevents the assessment of JVD CHEST: Equal chest rise, breath sounds clear to auscultation, no dyspnea noted remains on 2 L nasal cannula CARDIOVASCULAR: Normal rate, regular rhythm. Sinus by telemetry ABDOMEN: Soft, morbidly obese, nontender, nondistended. No guarding. Multiple healed scars around the abdomen, including median scar. There is a colostomy bag that exits the left lower quadrant, with stool output. Dressing neobladder with Jean catheter C/D/I in the right lower quadrant, draining clear urine. MUSCULOSKELETAL: Radial Pulses 2+. 1+ pitting edema peripherally, noted previous right foot amputation Skin: left heel ulcerating with purulent discharge. Medications and IVs Current Medications Sodium Bicarbonate 50 meq 50 meq ONCE ONCE IV PUSH Last administered on 15:34; Start 10/18/16 at 14:30; Stop 10/18/16 at 14:31; Status DC Sodium Bicarbonate/ Dextrose (Sodium Bicarbonate 8.4% Inj/D5W 1000 ml Inj) 1, 150 ml @ 150 mls/hr Q7H40M IV Last administered on 10/20/16 01:17; Start at 15:00; Stop 10/20/16 at 16:33; Status DC Dextrose (D50w (Vial) Inj) 25 ml UNSCH PRN IV PUSH HYPOGLYCEMIA-SEE COMMENTS; Start 10/18/16 at 14:30; Stop 10/19/16 at 10:29; Status DC Insulin Human Regular (NovoLIN R SUPPLEMENTAL SCALE) 1 ACHS AND 3AM SQ ; Start 10/18/16 at 16:00; Stop 10/19/16 at 10:34; Status DC Sodium Bicarbonate 150 meq 150 meq ONCE ONCE IV PUSH Last administered on 10/18 15:20; Start 10/18/16 at 14:45; Stop 10/18/16 at 14:46; Status DC Piperacillin Sod/ Tazobactam Sod (Zosyn 2.25 Gm Premix) 50 ml @ 100 mls/hr Q8H IV Last administered on 10/22/16 08:21; Start 10/18/16 at 17:00 Ondansetron HCl (Zofran Inj) 4 mg Q6H PRN IV NAUSEA OR VOMITING Last administered on 10/18/16 18:40; Start 10/18/16 at 16:30 Albuterol/ Ipratropium (Duoneb Neb) 1 ampule Q2HR NEB PRN INH WHEEZING Last administered on 10/18/16 19:45; Start 10/18/16 at 16:30 Heparin Sodium (Porcine) (Heparin Inj) 5,000 units Q12H SQ Last administered on 10/22/16 05:58; Start 10/18/16 at 18:00 Miscellaneous Information 1 Q361D XX Last administered on 10/18/16 16:30; Start 10/18/16 at 16:30 Chlorhexidine Gluconate (Chlorhexidine 2% Cloth) 3 pack Taper DAILY@04 TOP Last administered on 10/20/16 04:00; Start 10/19/16 at 04:00; Stop 10/15/17 at 03:59 Chlorhexidine Gluconate (Chlorhexidine 2% Cloth) 3 pack UNSCH PRN TOP HYGIENIC CARE; Start 10/18/16 at 16:30 Senna/Docusate Sodium (Margarita-Colace) 1 tab BID PO Last administered on 20:38; Start 10/18/16 at 21:00 Calcium Acetate 1334 mg 1,334 mg TID PO Last administered on 10/21/16 09:56; Start 10/19/16 at 09:00; Stop 10/21/16 at 16:52; Status DC Calcium Gluconate/ Dextrose (Calcium Gluconate Inj/D5W 100 ml Inj) 120 ml @ 120 mls/hr ONCE ONCE IV Last administered on 10/19/16 00:54; Start 10/19/16 at 01:00; Stop 10/19/16 at 01:59; Status DC Sodium Bicarbonate (Sodium Bicarbonate 8.4% Inj) 50 meq STK-MED ONCE .ROUTE ; Start 10/19/16 at 05:42; Stop 10/19/16 at 05:43; Status DC Sodium Bicarbonate 100 meq 100 meq NOW ONCE IV PUSH Last administered on 05:51; Start 10/19/16 at 06:00; Stop 10/19/16 at 06:01; Status DC Potassium Chloride 100 ml @ 50 mls/hr Q2H IV Last administered on 10/19/16 13 :22; Start 10/19/16 at 10:00; Stop 10/19/16 at 13:59; Status DC Calcium Gluconate 2 gm/Sodium Chloride 120 ml @ 120 mls/hr ONCE ONCE IV Last administered on 10/19/16 10:13; Start 10/19/16 at 10:30; Stop 10/19/16 at 11:29 ; Status DC Magnesium Sulfate/ Dextrose 100 ml @ 100 mls/hr Q1H IV Last administered on 11:25; Start 10/19/16 at 10:00; Stop 10/19/16 at 11:59; Status DC Cefepime HCl 2000 mg/Sodium Chloride 100 ml @ 200 mls/hr Q8H IV ; Start at 11:00; Stop 10/19/16 at 11:00; Status DC Sodium Chloride (NS 500 ml Inj) 500 ml @ 500 mls/hr BOLUS ONCE IV Last administered on 10/19/16 10:15; Start 10/19/16 at 10:00; Stop 10/19/16 at 10:59 ; Status DC Dextrose (D50w (Syr) Inj) 50 ml UNSCH PRN IV HYPOGLYCEMIA-SEE COMMENTS; Start 10/19/16 at 10:30 Glucagon (Glucagon Inj) 1 mg UNSCH PRN OTHER HYPOGLYCEMIA-SEE COMMENTS; Start 10/19/16 at 10:00 Insulin Aspart (NovoLOG SUPPLEMENTAL SCALE) 1 ACHS SLIDING SCALE SQ Last administered on 10/20/16 21:06; Start 10/19/16 at 11:00 Aspirin 81 mg 81 mg DAILY PO Last administered on 10/22/16 08:21; Start at 10:30 Linezolid (Zyvox 600 Mg Premix) 300 ml @ 300 mls/hr Q12H IV Last administered on 10/22/16 11:56; Start 10/19/16 at 11:00 Potassium Bicarb/ Potassium Chloride 50 meq 50 meq NOW ONCE PO Last administered on 10/19/16 10:44; Start 10/19/16 at 10:45; Stop 10/19/16 at 10:46 ; Status DC Calcium Gluconate 2 gm/Sodium Chloride 120 ml @ 120 mls/hr NOW IV Last administered on 10/19/16 21:47; Start 10/19/16 at 21:45; Stop 10/19/16 at 22:44 ; Status DC Potassium Chloride 100 ml @ 50 mls/hr Q2H IV Last administered on 10/20/16 01 :19; Start 10/19/16 at 22:00; Stop 10/20/16 at 01:59; Status DC Calcium Gluconate 2 gm/Sodium Chloride 120 ml @ 120 mls/hr NOW ONCE IV Last administered on 10/20/16 10:27; Start 10/20/16 at 10:00; Stop 10/20/16 at 10:59 ; Status DC Sodium Chloride (NS 1000 ml Inj) 1,000 ml @ 100 mls/hr Q10H IV Last administered on 10/22/16 08:19; Start 10/20/16 at 16:45 Polyethylene Glycol (Miralax) 17 gm DAILY PO ; Start 10/20/16 at 20:00 Oxycodone HCl (Roxicodone) 10 mg Q6H PRN PO PAIN SCALE 7 TO 10 Last administered on 10/22/16 11:49; Start 10/21/16 at 10:15 Potassium Bicarb/ Potassium Chloride (K-Lyte Cl Eff) 50 meq NOW ONCE PO Last administered on 10/21/16 12:51; Start 10/21/16 at 13:00; Stop 10/21/16 at 13:01 ; Status DC Calcitriol (Rocaltrol) 0.5 mcg DAILY PO Last administered on 10/22/16 08:21; Start 10/21/16 at 17:00 Calcium Carbonate (Oscal) 1,000 mg Q8HR PO Last administered on 10/22/16 13:13 ; Start 10/21/16 at 22:00 Dofetilide (Tikosyn) 500 mcg BID PO ; Start 10/21/16 at 21:00; Stop 10/21/16 at 21:43; Status DC Potassium Chloride (KCl) 40 meq ONCE ONCE PO Last administered on 10/22/16 07 :22; Start 10/22/16 at 06:45; Stop 10/22/16 at 06:46; Status DC Calcium Gluconate 1 gm 1 gm ONCE ONCE IV PUSH ; Start 10/22/16 at 06:45; Stop 10/22/16 at 06:46; Status Cancel Calcium Gluconate/ Sodium Chloride (Calcium Gluconate Inj/NS Inj) 110 ml @ 220 mls/hr ONCE ONCE IV Last administered on 10/22/16 08:19; Start 10/22/16 at 07 :00; Stop 10/22/16 at 07:29; Status DC Hydralazine HCl (Apresoline) 50 mg Q8HR PO Last administered on 10/22/16 13:13 ; Start 10/22/16 at 12:45 Collagenase (Santyl Oint) 1 applic DAILY TOPICAL ; Start 10/22/16 at 12:45 A/P Assessment and Plan Acute kidney injury-secondary to obstructive uropathy S/P left nephrectomy, cystectomy with neobladder -Jean place with improvement in symptoms. --Neobladder catheter draining -Urology following Dr. Shelton -Follow-up nephrology Following - Strict I/Os Hydronephrosis right kidney -Due to the above. Sepsis -Secondary to the above. Treated. Resolved. acute respiratory failure -Secondary to sepsis. Resolved. -incentive spirometry and Acapella -Bronchodilators when necessary Hypertension H/O CABG, cardiac stent -Initially antihypertensive medication was held secondary to hypotension. Will resume hydralazine. -Resume ASA 81 mg/day Chronic Left heel [id number] -Infectious disease following. -On Zosyn and Linezolid -Cultures growing proteus mirabilis, MRSA, group D enterococcus. -Will consult wound care nurse. UTI -Growing enterococcus faecalis, Klebsiella pneumonia ESBL positive, protease mirabilis -Patient on Zosyn and Zyvox. -Infectious disease following. Right issue wound [id number] -stable S/P C5-C6 fusion, C7 discectomy -Stable. Heme/ID: -Follow-up lung blood urine cultures - -Monitor CBC -WBC count improving Endocrine: Glucose monitoring per ICU protocol -- SSI Prophylaxis: GI Prophylaxis DVT Prophylaxis -- SCDs Lines: Peripheral IV's Dispo: Level 2 Discussed with patient and ASSOCIATE LOAN OFFICER at bedside. Planned transfer to [facility] in a.m.. Plan transfer to floor. Physician Crystal Gallegos MD Oct 22, 2016 13:54 Crystal Gallegos MD Oct 22, 2016 13:54
--- NOTE | 2016-10-22 14:00 | HHI.IDPN ---
Subjective Subjective Remarks Patient is a 61-year-old male, percent to the hospital complaining of 2 day history of worsening shortness of breath. Patient is paraplegic and states mostly in his motorized wheelchair. He has not been having any cough. He has complicated history in that he has had multiple surgeries. He had left nephrectomy for a calcified kidney possibly related to chronic infection. He also had an ileal conduit as a young patient and it eventually created problem and he subsequently underwent placement of a [place] pouch. He had appendicovesicostomy done and self catheterize himself. Patient stated that he has not been able to catheterize himself over the last 2 days. There's been no fever or chills. He denies any congestion or any significant cough or sputum production. Patient also has chronic decubitus because of his bedridden state. On presentation patient had leukocytosis. He has significant acidosis and very high creatinine. Imaging study showed evidence of right hydronephrosis. Healy catheter insertion was tried but was not successful, and urology was consult. He was also unable to place it, so the patient went to the operating room and had cystoscopy and placement of the Healy catheter under anesthesia. Patient's WBC was quite high, and that has improved. His creatinine is still elevated but slightly better compared to what it was on admission. He has urine output which seems adequate. Renal is following the patient. Patient also has multiple decubitus ulcers including the left heel and in the buttock area. Urine culture is growing Proteus, Klebsiella ESBL positive, and Enterococcus faecalis. Wound culture on the left heel which is all the way to the bone has Proteus, second gram-negative ivan, and staph species. Notes reviewed Temps ok He is out of ICU C/S reviewed Good UO Creatinine 5.63 WBC down to normal Repeat urine not sent yet Antibiotics Zosyn Zyvox Past Medical History Anemia, unknown etiology Spina bifida Arthritis Hyperlipidemia Coronary artery disease Hypertension Paraplegia Chronic renal insufficiency, unknown stage Past Surgical History Neobladder reconstruction, "[place] pouch " Appendectomy Ivan in left femur Band around pelvis and hip Coronary artery bypass grafting Cholecystectomy Coronary artery stent Appendicovesicostomy Colostomy Left nephrectomy Tonsillectomy C5 6 fusion C7 discectomy Allergies: Coded Allergies: Compazine (Verified Allergy, Severe, MUSCLE CONTRACTURES, 08/29/16) Contrast Media (Verified Allergy, Severe, Anaphylaxis, 08/29/16) Thorazine (Verified Allergy, Severe, MUSCLE CONTRACTURES, 08/29/16) *MDRO Multi-Drug Resistant Organism (Verified Adverse Reaction, Unknown, MRSA, 10/21/16) 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 & 10/20/16 ESBL-KL PN- (urine) 10/18/16 Objective . Vital Signs Date Time Temp Pulse Resp B/P Pulse Ox O2 Delivery O2 Flow Rate FiO2 10/22/16 12:00 96.8 58 20 188/92 98 10/22/16 08:00 56 10/22/16 08:00 97.3 65 19 177/87 97 10/22/16 07:03 18 10/22/16 04:00 97.8 62 18 132/85 98 10/22/16 00:00 98.1 62 18 155/81 98 10/21/16 20:00 97.8 67 16 155/83 97 10/21/16 20:00 66 10/21/16 16:00 97.4 70 20 154/84 95 10/21/16 14:31 96.7 66 20 164/83 96 10/21/16 10/21/16 10/22/16 14:59 22:59 06:59 Intake Total 960 ml 394 ml 1376 ml Output Total 1200 ml 1325 ml 800 ml Balance -240 ml -931 ml 576 ml Intake Oral 960 ml 240 ml IV Total 394 ml 1136 ml Output Urine Total 850 ml 1225 ml 800 ml Stool Total 350 ml 100 ml # Bowel Movements 1 . Laboratory Tests Test 10/21/16 10/22/16 10:37 04:53 White Blood Count 9.0 TH/MM3 9.7 TH/MM3 Red Blood Count 3.11 MIL/MM3 3.17 MIL/MM3 Hemoglobin 7.9 GM/DL 7.8 GM/DL Hematocrit 24.4 % 25.4 % Mean Corpuscular Volume 78.3 FL 80.0 FL Mean Corpuscular Hemoglobin 25.3 PG 24.6 PG Mean Corpuscular Hemoglobin 32.3 % 30.8 % Concent Red Cell Distribution Width 20.2 % 19.6 % Platelet Count 196 TH/MM3 217 TH/MM3 Mean Platelet Volume 6.7 FL 6.8 FL Laboratory Tests Test 10/21/16 10/22/16 10:37 04:53 Sodium Level 143 MEQ/L 142 MEQ/L Potassium Level 2.9 MEQ/L 3.3 MEQ/L Chloride Level 107 MEQ/L 108 MEQ/L Carbon Dioxide Level 22.1 MEQ/L 24.5 MEQ/L Anion Gap 14 MEQ/L 10 MEQ/L Blood Urea Nitrogen 71 MG/DL 68 MG/DL Creatinine 5.60 MG/DL 5.63 MG/DL Estimat Glomerular Filtration 10 ML/MIN 10 ML/MIN Rate Random Glucose 118 MG/DL 97 MG/DL Calcium Level 6.3 MG/DL 6.7 MG/DL Protein Corrected Calcium 6.8 MG/DL 7.2 MG/DL Phosphorus Level 4.9 MG/DL 5.2 MG/DL Magnesium Level 1.6 MG/DL Total Protein 6.0 GM/DL 6.0 GM/DL Microbiology Date/Time Procedure Status Source Growth 10/19/16 14:00 Gram Stain - Final Resulted Wound Heel 10/19/16 14:00 Wound Culture - Preliminary Resulted Proteus Mirabilis Gram Negative Ivan S. Aureus Mrsa Group D Enterococcus 10/19/16 16:00 Gram Stain - Final Complete Sputum Endotracheal 10/19/16 16:00 Sputum Culture - Final Complete Sputum Endotracheal HEAVY GROWTH NORMAL RESPIRATORY CIERA Imaging Renal Ultrasound 10/18/16 0000 Signed Impressions: Service Date/Time: Tuesday, October 18, 2016 15:27 - CONCLUSION: 1. Hydronephrosis of the right kidney. 2. Cystectomy with neobladder. Alok Upton MD Chest X-Ray 10/18/16 0000 Signed Impressions: Service Date/Time: Tuesday, October 18, 2016 12:44 - CONCLUSION: Possible mild bibasilar atelectasis. Deborah Dean MD Abdomen/Pelvis CT 10/18/16 0000 Signed Impressions: Service Date/Time: Tuesday, October 18, 2016 16:07 - CONCLUSION: 1. There is hydronephrosis of the right kidney similar to previous study with neobladder and ileostomy. 2. 3 mm nonobstructing right renal calculus. 3. Left nephrectomy. Alok Upton MD Physical Exam GENERAL: awake and alert, not in respiratory distress. SKIN: Warm and dry. No generalized rash HEAD: Atraumatic. Normocephalic. No temporal wasting, or tenderness. EYES: [place] conjunctiva. No petechia or hemorrhage. Pupils equal, round and reactive to light. Extraocular movements full and intact. No scleral icterus. EARS, NOSE AND THROAT: Nose without bleeding or purulent nasal discharge. No sinus tenderness. Mucous membranes pink and moist. No oral lesions noted. NECK: Trachea midline. Supple and not tender, no meningeal signs CARDIOVASCULAR: Regular rate and rhythm. No murmurs, rubs or gallops heard RESPIRATORY: Clear to auscultation. Breath sounds equal bilaterally. No rales , wheezing or rhonchi. Decreased at bases ABDOMEN: Soft, obese, multiple scars noted. Has colostomy on L with some stool. Healy in RLQ into his neobladder. Bowel sounds present and normoactive. No guarding. No rebound. EXTREMITIES: No clubbing, cyanosis. S/P amputation on his RLE, ?[place], well healed stump. L heel with ulcer, with brown slough, (+) odor. No calf tenderness. Well perfused and warm. NEUROLOGICAL: Awake and alert. Cranial nerves grossly intact. Good strength in his UE. NO movement in BLE BACK: Multiple dressings in place over wounds, not very deep PSYCHIATRIC: Normal affect, calm and cooperative. LINE: No evidence of infection : Has healy in his neobladder Assessment & Plan Remarks IMPRESSION Urosepsis due to obstruction, and inability to do self cath, with R hydro on imaging - UC Proteus, Kleb ESBL and Enterococcus CKD, creatinine still high Paraplegia Hx spina bifida Decubitus L Heel, (+) polymicrobial RECOMMENDATION Repeat UA and C/S - will reorder Follow C/S Continue Zosyn and Zyvox - change Zyvox to po Wound care Monitor progress Vira Enrique MD Oct 22, 2016 14:00
--- NOTE | 2016-10-22 16:28 | HHI.NPPN ---
Subjective History of Present Illness 61-year-old male with past medical history of paraplegia, history of partial small-bowel obstruction, hypertension, hyperlipidemia, ischemic heart disease, chronic kidney disease, arthritis, anemia, history of neobladder formation with neurogenic bladder, left nephrectomy who was admitted with complaint of shortness of breath. The patient mainly came with shortness of breath and he was found to be severely acidotic with a very low pH of 6.99 and bicarb was very low and very high BUN and creatinine. The patient previously has a history of chronic kidney disease, although is not following with any product support engineer. His creatinine was 2.1-2.2 which was his baseline when he was admitted last month. Additional Remarks Patient is alert, feeling better, no SOB, no abd. pain, eating well. Review of Systems General Constitutional: Fatigue Respiratory Lungs: SOB Cardiovascular Cardiac: BAEZ Objective Data Data 10/21/16 10/22/16 19:00 07:00 Intake Total 960 ml 1770 ml Output Total 1200 ml 2125 ml Balance -240 ml -355 ml Intake Oral 960 ml 240 ml IV Total 1530 ml Output Urine Total 850 ml 2025 ml Stool Total 350 ml 100 ml # Bowel Movements 1 Vital Signs Date Time Temp Pulse Resp B/P Pulse Ox O2 Delivery O2 Flow Rate FiO2 10/22/16 12:00 96.8 58 20 188/92 98 10/22/16 08:00 56 10/22/16 08:00 97.3 65 19 177/87 97 10/22/16 07:03 18 10/22/16 04:00 97.8 62 18 132/85 98 10/22/16 00:00 98.1 62 18 155/81 98 10/21/16 20:00 97.8 67 16 155/83 97 10/21/16 20:00 66 -: 10/22/16 0453 10/22/16 0453 Physical Exam General Appearance: Well Nourished, No Acute Distress, Comfortable Eyes Eye Exam: Pupils Equal Throat Throat Exam: Oral Mucosa [place] & Moist Neck Neck Exam: Neck Supple Pulmonary Resp Exam: Breath Sounds Equal, No Distress, Decreased Bases Cardiology CV Exam: Regular, Normal Sinus Rhythm Gastrointestinal/Abdomen GI Exam: Soft, Non-Tender, Bowel Sounds Present Extremeties Extremities Exam: Trace Edema Neurologic Neuro Exam: Alert, Awake, Oriented Psychiatric Psych Exam: Appropriate Responses Assessment/Plan Assessment Summary: VIJAY/Acute Renal Failure, CKD Stage III Electrolyte Assessment: Hypocalcemia, Hypokalemia, Metabolic Acidosis Problem List: (1) Leukocytosis (2) Acidemia (3) Respiratory distress (4) Paraplegia (5) UTI (urinary tract infection) (6) CKD (chronic kidney disease), stage III (7) Acute renal failure Plan Patient has advance stage 3 chronic kidney disease, and develop VIJAY, with severe metabolic acidosis. Also has UTI and obstructive uropathy. Has low K , and calcium, replaced. Urine out put is good. Creatinine is almost same. Acidosis improved. Now on IVF, with NS. BP is elevated, started on Hydralazine. Problem Qualifiers (1) UTI (urinary tract infection): Lynsey Goldman MD Oct 22, 2016 16:28
[2016-10-22] MEDS: COLLAGENASE OINT 30 GM TUBE TOPICAL SCH (16:30)
[2016-10-22 17:09] LABS: BACTERIA, URINE MANY /hpf; BLOOD, URINE TRACE (NEG); COMMENT (UR) CATH-CULTURE IND; CULTURE IF INDICATED CATH CULTURE IND; GLUCOSE,URINE NEG (NEG); KETONE, URINE NEG (NEG); MUCUS URINE FEW /lpf (OCC); NITRITE,URINE NEG (NEG); SQUAMOUS EPITHELIAL CELL URINE <1 /hpf (0-5); URINE COLOR LIGHT-YELLOW (YELLW/STRAW)
[2016-10-22] MEDS: LINEZOLID 600 MG TAB PO SCH (20:07)
[2016-10-23] VITALS (8 sets, daily range): BP systolic 162–187; BP diastolic 80–88; PULSE 56–73; RESP 18–22; TEMP 96.6–97.8; O2SAT 96–98
[2016-10-23] MEDS: PIPERACIL-TAZO 2.25 GM PREMIX 50 ML IV SCH ×3 (00:04→17:46)
[2016-10-23] MEDS: CHLORHEXIDINE GLUCONATE 2 % 1 PACK (2 CLOTHS) TOP SCH (00:05)
[2016-10-23] MEDS: SODIUM CHLOR 0.9% 1000 ML INJ 1,000 ML IV SCH ×2 (03:05→14:45)
[2016-10-23 05:30] LABS: HEMATOCRIT 26.9 % (39.0-51.0); MEAN CELL VOLUME 80.5 FL (80.0-100.0); MEAN CORPUSCULAR HEMOGLOBIN 25.4 PG (27.0-34.0); MEAN CORPUSCULAR HGB CONC 31.6 % (32.0-36.0); PLATELET COUNT 205 TH/MM3 (150-450); RED BLOOD COUNT 3.34 MIL/MM3 (4.50-5.90); RED CELL DISTRIBUTION WIDTH 20.4 % (11.6-17.2); REVIEW FLAG FINAL
[2016-10-23] MEDS: CALCIUM CARBONATE 1.25 GM (CA 500 MG) TAB PO SCH ×3 (06:09→21:53)
[2016-10-23] MEDS: hydrALAZINE HCL 50 MG TAB PO SCH (06:09)
[2016-10-23] MEDS: HEPARIN SODIUM - SQ 10,000 UNITS/ML VIAL SQ SCH ×2 (06:09→17:46)
[2016-10-23 06:29] LABS: BICARBONATE 24.2 MEQ/L (21.0-32.0); POTASSIUM 3.8 MEQ/L (3.5-5.1)
[2016-10-23 06:43] LABS: CALCIUM-PROTEIN CORRECTED 7.8 MG/DL (8.5-10.1)
[2016-10-23] MEDS: INSULIN ASPART SUPPLEMENTAL SCALE SQ SCH ×4 (06:49→21:00)
[2016-10-23] MEDS: ASPIRIN EC 81 MG TABEC PO SCH (08:54)
[2016-10-23] MEDS: LINEZOLID 600 MG TAB PO SCH ×2 (08:54→21:52)
[2016-10-23] MEDS: CALCITRIOL 0.25 MCG CAP PO SCH (08:54)
[2016-10-23] MEDS: POLYETHYLENE GLYCOL 17 GM PKG PO SCH (09:00)
[2016-10-23] MEDS: DOCUSATE SODIUM 50 MG/SENNA 8.6 MG TAB PO SCH ×2 (09:00→21:00)
[2016-10-23] MEDS: COLLAGENASE OINT 30 GM TUBE TOPICAL SCH (09:00)
--- NOTE | 2016-10-23 11:11 | HHI.PR ---
Subjective Remarks Follow-up for multiple medical conditions and assessment and plan Patient complaints. Denied any abdominal pain. Patient very anxious to go home. Patient continues to be afebrile. Objective Vitals Vital Signs Date Time Temp Pulse Resp B/P Pulse Ox O2 Delivery O2 Flow Rate FiO2 10/23/16 08:11 96 Nasal Cannula 2.00 10/23/16 08:00 96.6 63 18 166/80 96 10/23/16 04:00 Nasal Cannula 2.00 10/23/16 04:00 96.7 68 22 165/80 97 10/23/16 00:00 96.9 62 20 162/81 98 10/23/16 00:00 Nasal Cannula 2.00 10/22/16 20:00 Nasal Cannula 2.00 10/22/16 20:00 54 10/22/16 20:00 96.4 61 20 168/88 98 10/22/16 16:58 120/80 10/22/16 16:00 97.9 66 19 189/91 98 10/22/16 12:00 96.8 58 20 188/92 98 I/O 10/22/16 10/22/16 10/22/16 10/23/16 10/23/16 10/23/16 07:00 15:00 23:00 07:00 15:00 23:00 Intake Total 1376 ml 2105 ml 2083 ml 1023 ml Output Total 800 ml 1400 ml 2350 ml 1550 ml Balance 576 ml 705 ml -267 ml -527 ml Intake Oral 240 ml 1080 ml 320 ml 240 ml IV Total 1136 ml 1025 ml 1763 ml 783 ml Output Urine Total 800 ml 1000 ml 2050 ml 1550 ml Stool Total 400 ml 300 ml # Bowel Movements 1 Result Diagram: 10/23/168 10/23/16427 Objective Remarks GENERAL: Morbidly obese male, semi-recumbent in bed, in no acute distress HEENT: Normocephalic. Atraumatic. Pupils equal, round, reactive, conjugate. Mucous membranes are moist NECK: Trachea is midline. Large ford and large obese neck prevents the assessment of JVD CHEST: Equal chest rise, breath sounds clear to auscultation, no dyspnea noted remains on 2 L nasal cannula CARDIOVASCULAR: Normal rate, regular rhythm. Sinus by telemetry ABDOMEN: Soft, morbidly obese, nontender, nondistended. No guarding. Multiple healed scars around the abdomen, including median scar. There is a colostomy bag that exits the left lower quadrant, with stool output. Dressing neobladder with Jean catheter C/D/I in the right lower quadrant, draining clear urine. MUSCULOSKELETAL: Radial Pulses 2+. 1+ pitting edema peripherally, noted previous right foot amputation Skin: left heel ulcerating with purulent discharge. Medications and IVs Current Medications Sodium Bicarbonate 50 meq 50 meq ONCE ONCE IV PUSH Last administered on 15:34; Start 10/18/16 at 14:30; Stop 10/18/16 at 14:31; Status DC Sodium Bicarbonate/ Dextrose (Sodium Bicarbonate 8.4% Inj/D5W 1000 ml Inj) 1, 150 ml @ 150 mls/hr Q7H40M IV Last administered on 10/20/16 01:17; Start at 15:00; Stop 10/20/16 at 16:33; Status DC Dextrose (D50w (Vial) Inj) 25 ml UNSCH PRN IV PUSH HYPOGLYCEMIA-SEE COMMENTS; Start 10/18/16 at 14:30; Stop 10/19/16 at 10:29; Status DC Insulin Human Regular (NovoLIN R SUPPLEMENTAL SCALE) 1 ACHS AND 3AM SQ ; Start 10/18/16 at 16:00; Stop 10/19/16 at 10:34; Status DC Sodium Bicarbonate 150 meq 150 meq ONCE ONCE IV PUSH Last administered on 10/18 15:20; Start 10/18/16 at 14:45; Stop 10/18/16 at 14:46; Status DC Piperacillin Sod/ Tazobactam Sod (Zosyn 2.25 Gm Premix) 50 ml @ 100 mls/hr Q8H IV Last administered on 10/23/16 08:53; Start 10/18/16 at 17:00 Ondansetron HCl (Zofran Inj) 4 mg Q6H PRN IV NAUSEA OR VOMITING Last administered on 10/18/16 18:40; Start 10/18/16 at 16:30 Albuterol/ Ipratropium (Duoneb Neb) 1 ampule Q2HR NEB PRN INH WHEEZING Last administered on 10/18/16 19:45; Start 10/18/16 at 16:30 Heparin Sodium (Porcine) (Heparin Inj) 5,000 units Q12H SQ Last administered on 10/23/16 06:09; Start 10/18/16 at 18:00 Miscellaneous Information 1 Q361D XX Last administered on 10/18/16 16:30; Start 10/18/16 at 16:30 Chlorhexidine Gluconate (Chlorhexidine 2% Cloth) 3 pack Taper DAILY@04 TOP Last administered on 10/20/16 04:00; Start 10/19/16 at 04:00; Stop 10/15/17 at 03:59 Chlorhexidine Gluconate (Chlorhexidine 2% Cloth) 3 pack UNSCH PRN TOP HYGIENIC CARE; Start 10/18/16 at 16:30 Senna/Docusate Sodium (Margarita-Colace) 1 tab BID PO Last administered on 20:38; Start 10/18/16 at 21:00 Calcium Acetate 1334 mg 1,334 mg TID PO Last administered on 10/21/16 09:56; Start 10/19/16 at 09:00; Stop 10/21/16 at 16:52; Status DC Calcium Gluconate/ Dextrose (Calcium Gluconate Inj/D5W 100 ml Inj) 120 ml @ 120 mls/hr ONCE ONCE IV Last administered on 10/19/16 00:54; Start 10/19/16 at 01:00; Stop 10/19/16 at 01:59; Status DC Sodium Bicarbonate (Sodium Bicarbonate 8.4% Inj) 50 meq STK-MED ONCE .ROUTE ; Start 10/19/16 at 05:42; Stop 10/19/16 at 05:43; Status DC Sodium Bicarbonate 100 meq 100 meq NOW ONCE IV PUSH Last administered on 05:51; Start 10/19/16 at 06:00; Stop 10/19/16 at 06:01; Status DC Potassium Chloride 100 ml @ 50 mls/hr Q2H IV Last administered on 10/19/16 13 :22; Start 10/19/16 at 10:00; Stop 10/19/16 at 13:59; Status DC Calcium Gluconate 2 gm/Sodium Chloride 120 ml @ 120 mls/hr ONCE ONCE IV Last administered on 10/19/16 10:13; Start 10/19/16 at 10:30; Stop 10/19/16 at 11:29 ; Status DC Magnesium Sulfate/ Dextrose 100 ml @ 100 mls/hr Q1H IV Last administered on 11:25; Start 10/19/16 at 10:00; Stop 10/19/16 at 11:59; Status DC Cefepime HCl 2000 mg/Sodium Chloride 100 ml @ 200 mls/hr Q8H IV ; Start at 11:00; Stop 10/19/16 at 11:00; Status DC Sodium Chloride (NS 500 ml Inj) 500 ml @ 500 mls/hr BOLUS ONCE IV Last administered on 10/19/16 10:15; Start 10/19/16 at 10:00; Stop 10/19/16 at 10:59 ; Status DC Dextrose (D50w (Syr) Inj) 50 ml UNSCH PRN IV HYPOGLYCEMIA-SEE COMMENTS; Start 10/19/16 at 10:30 Glucagon (Glucagon Inj) 1 mg UNSCH PRN OTHER HYPOGLYCEMIA-SEE COMMENTS; Start 10/19/16 at 10:00 Insulin Aspart (NovoLOG SUPPLEMENTAL SCALE) 1 ACHS SLIDING SCALE SQ Last administered on 10/20/16 21:06; Start 10/19/16 at 11:00 Aspirin 81 mg 81 mg DAILY PO Last administered on 10/23/16 08:54; Start at 10:30 Linezolid (Zyvox 600 Mg Premix) 300 ml @ 300 mls/hr Q12H IV Last administered on 10/22/16 11:56; Start 10/19/16 at 11:00; Stop 10/22/16 at 13:55; Status DC Potassium Bicarb/ Potassium Chloride 50 meq 50 meq NOW ONCE PO Last administered on 10/19/16 10:44; Start 10/19/16 at 10:45; Stop 10/19/16 at 10:46 ; Status DC Calcium Gluconate 2 gm/Sodium Chloride 120 ml @ 120 mls/hr NOW IV Last administered on 10/19/16 21:47; Start 10/19/16 at 21:45; Stop 10/19/16 at 22:44 ; Status DC Potassium Chloride 100 ml @ 50 mls/hr Q2H IV Last administered on 10/20/16 01 :19; Start 10/19/16 at 22:00; Stop 10/20/16 at 01:59; Status DC Calcium Gluconate 2 gm/Sodium Chloride 120 ml @ 120 mls/hr NOW ONCE IV Last administered on 10/20/16 10:27; Start 10/20/16 at 10:00; Stop 10/20/16 at 10:59 ; Status DC Sodium Chloride (NS 1000 ml Inj) 1,000 ml @ 100 mls/hr Q10H IV Last administered on 10/22/16 20:09; Start 10/20/16 at 16:45 Polyethylene Glycol (Miralax) 17 gm DAILY PO ; Start 10/20/16 at 20:00 Oxycodone HCl (Roxicodone) 10 mg Q6H PRN PO PAIN SCALE 7 TO 10 Last administered on 10/23/16 10:36; Start 10/21/16 at 10:15 Potassium Bicarb/ Potassium Chloride (K-Lyte Cl Eff) 50 meq NOW ONCE PO Last administered on 10/21/16 12:51; Start 10/21/16 at 13:00; Stop 10/21/16 at 13:01 ; Status DC Calcitriol (Rocaltrol) 0.5 mcg DAILY PO Last administered on 10/23/16 08:54; Start 10/21/16 at 17:00 Calcium Carbonate (Oscal) 1,000 mg Q8HR PO Last administered on 10/23/16 06:09 ; Start 10/21/16 at 22:00 Dofetilide (Tikosyn) 500 mcg BID PO ; Start 10/21/16 at 21:00; Stop 10/21/16 at 21:43; Status DC Potassium Chloride (KCl) 40 meq ONCE ONCE PO Last administered on 10/22/16 07 :22; Start 10/22/16 at 06:45; Stop 10/22/16 at 06:46; Status DC Calcium Gluconate 1 gm 1 gm ONCE ONCE IV PUSH ; Start 10/22/16 at 06:45; Stop 10/22/16 at 06:46; Status Cancel Calcium Gluconate/ Sodium Chloride (Calcium Gluconate Inj/NS Inj) 110 ml @ 220 mls/hr ONCE ONCE IV Last administered on 10/22/16 08:19; Start 10/22/16 at 07 :00; Stop 10/22/16 at 07:29; Status DC Hydralazine HCl (Apresoline) 50 mg Q8HR PO Last administered on 10/23/16 06:09 ; Start 10/22/16 at 12:45 Collagenase (Santyl Oint) 1 applic DAILY TOPICAL Last administered on 09:00; Start 10/22/16 at 12:45 Linezolid (Zyvox) 600 mg Q12HR PO Last administered on 10/23/16 08:54; Start 10/22/16 at 21:00 A/P Assessment and Plan Acute kidney injury-secondary to obstructive uropathy S/P left nephrectomy, cystectomy with neobladder -Jean place with improvement in symptoms. --Neobladder catheter draining -Urology following Dr. Shelton -Follow-up nephrology Following - Strict I/Os Hydronephrosis right kidney -Due to the above. Sepsis -Secondary to the above. Treated. Resolved. acute respiratory failure -Secondary to sepsis. Resolved. -incentive spirometry and Acapella -Bronchodilators when necessary Hypertension H/O CABG, cardiac stent -Initially antihypertensive medication was held secondary to hypotension. Increase hydralazine to his home dose. -Continue ASA 81 mg/day Chronic Left heel [id number] -Infectious disease following. -On Zosyn and PO Linezolid -Cultures growing proteus mirabilis, MRSA, group D enterococcus. -Wound care nurse consulted. UTI -Growing enterococcus faecalis, Klebsiella pneumonia ESBL positive, protease mirabilis -Patient on Zosyn and Zyvox. -Infectious disease following. -Urine cultures repeated. Right issue wound [id number] -stable S/P C5-C6 fusion, C7 discectomy -Stable. Prophylaxis: GI Prophylaxis DVT Prophylaxis -- Crystal Gomez MD Oct 23, 2016 11:11
--- NOTE | 2016-10-23 11:59 | HHI.PR ---
Subjective Patient symptoms today Pt seen and examined. Desires to go home. Creatinine slowly improving down to 5.1. Objective Vital Signs Vital Signs Date Time Temp Pulse Resp B/P Pulse Ox O2 Delivery O2 Flow Rate FiO2 10/23/16 08:11 96 Nasal Cannula 2.00 10/23/16 08:00 96.6 63 18 166/80 96 10/23/16 04:00 Nasal Cannula 2.00 10/23/16 04:00 96.7 68 22 165/80 97 10/23/16 00:00 96.9 62 20 162/81 98 10/23/16 00:00 Nasal Cannula 2.00 10/22/16 20:00 Nasal Cannula 2.00 10/22/16 20:00 54 10/22/16 20:00 96.4 61 20 168/88 98 10/22/16 16:58 120/80 10/22/16 16:00 97.9 66 19 189/91 98 10/22/16 12:00 96.8 58 20 188/92 98 Intake & Output 10/23/16 10/23/16 07:00 19:00 Intake Total 3106 ml Output Total 3900 ml Balance -794 ml Intake Oral 560 ml IV Total 2546 ml Output Urine Total 3600 ml Stool Total 300 ml # Bowel Movements 1 Result Diagram: 10/23/1642710/23/16427 Objective Remarks Abd:soft,nt,nd Healy in place and draining cloudy urine 10/20 Abd:soft,nt,nd Healy in place and draining cloudy urine 10/21 Abd:soft,nt,nd Healy draining clear urine 10/22 Abd:soft,nt,nd Healy draining clear urine 10/23 10/22 Abd:soft,nt,nd Healy draining clear urine Medications and IVs Current Medications Medications (Trade) Dose Ordered Sig/Yosi Route Start Time Stop Time Status Last Admin (Zosyn 2.25 Gm Premix) 50 ml @ 100 mls/hr Q8H IV 10/18/16 17:00 10/23/16 08:53 (Zofran Inj) 4 mg Q6H PRN IV 10/18/16 16:30 10/18/16 18:40 (Heparin Inj) 5,000 units Q12H SQ 10/18/16 18:00 10/23/16 06:09 Miscellaneous Information 1 Q361D XX 10/18/16 16:30 10/18/16 16:30 (Chlorhexidine 2% Cloth) 3 pack Taper DAILY@04 TOP 10/19/16 04:00 10/15/17 03:59 10/20/16 04:00 (Chlorhexidine 2% Cloth) 3 pack UNSCH PRN TOP 10/18/16 16:30 (Margarita-Colace) 1 tab BID PO 10/18/16 21:00 10/21/16 20:38 (D50w (Syr) Inj) 50 ml UNSCH PRN IV 10/19/16 10:30 (Glucagon Inj) 1 mg UNSCH PRN OTHER 10/19/16 10:00 Aspirin 81 mg 81 mg DAILY PO 10/19/16 10:30 10/23/16 08:54 (NS 1000 ml Inj) 1,000 ml @ 100 mls/hr Q10H IV 10/20/16 16:45 10/22/16 20:09 (Miralax) 17 gm DAILY PO 10/20/16 20:00 (Roxicodone) 10 mg Q6H PRN PO 10/21/16 10:15 10/23/16 10:36 (Rocaltrol) 0.5 mcg DAILY PO 10/21/16 17:00 10/23/16 08:54 (Oscal) 1,000 mg Q8HR PO 10/21/16 22:00 10/23/16 06:09 (Santyl Oint) 1 applic DAILY TOPICAL 10/22/16 12:45 10/23/16 09:00 (Zyvox) 600 mg Q12HR PO 10/22/16 21:00 10/23/16 08:54 (Apresoline) 100 mg Q8HR PO 10/23/16 14:00 Assessment and Plan Assessment and Plan 61 y.o male s/p cystoscopy of appendico with placement of healy catheter for 1200cc Check Ucx results Maintain healy catheter Continue ABX and supportive measures 10/20 61 y.o male s/p cystoscopy of appendico with placement of healy catheter for 1200cc with ARF/CRF Creatinine at 6 UCx with GNR's Continue ABX 10/21 61 y.o male s/p cystoscopy of appendico with placement of healy catheter for 1200cc with ARF/CRF Creatinine at 6.0 from yesterday; today's pending UCx sensitive to Zosyn Maintain catheter drainage. 10/22 61 y.o male s/p cystoscopy of appendico with placement of healy catheter for 1200cc with ARF/CRF Creatinine at 5.6 today UCx sensitive to Zosyn Maintain catheter drainage. 10/23 61 y.o male s/p cystoscopy of appendico with placement of healy catheter for 1200cc with ARF/CRF Creatinine at 5.1 today Maintain catheter drainage until creatinine baselines to 2 range Austyn Shelton DO Oct 23, 2016 11:59
[2016-10-23] MEDS: hydrALAZINE HCL 100 MG TAB PO SCH ×2 (14:21→21:53)
--- NOTE | 2016-10-23 15:52 | HHI.IDPN ---
Subjective Subjective Remarks Patient is a 61-year-old male, percent to the hospital complaining of 2 day history of worsening shortness of breath. Patient is paraplegic and states mostly in his motorized wheelchair. He has not been having any cough. He has complicated history in that he has had multiple surgeries. He had left nephrectomy for a calcified kidney possibly related to chronic infection. He also had an ileal conduit as a young patient and it eventually created problem and he subsequently underwent placement of a [place] pouch. He had appendicovesicostomy done and self catheterize himself. Patient stated that he has not been able to catheterize himself over the last 2 days. There's been no fever or chills. He denies any congestion or any significant cough or sputum production. Patient also has chronic decubitus because of his bedridden state. On presentation patient had leukocytosis. He has significant acidosis and very high creatinine. Imaging study showed evidence of right hydronephrosis. Healy catheter insertion was tried but was not successful, and urology was consult. He was also unable to place it, so the patient went to the operating room and had cystoscopy and placement of the Healy catheter under anesthesia. Patient's WBC was quite high, and that has improved. His creatinine is still elevated but slightly better compared to what it was on admission. He has urine output which seems adequate. Renal is following the patient. Patient also has multiple decubitus ulcers including the left heel and in the buttock area. Urine culture is growing Proteus, Klebsiella ESBL positive, and Enterococcus faecalis. Wound culture on the left heel which is all the way to the bone has Proteus, second gram-negative ivan, and staph species. Notes reviewed Temps ok No new complaints Good UO Creatinine still in the 5s WBC down to normal Repeat UA better Antibiotics Zosyn Zyvox Past Medical History Anemia, unknown etiology Spina bifida Arthritis Hyperlipidemia Coronary artery disease Hypertension Paraplegia Chronic renal insufficiency, unknown stage Past Surgical History Neobladder reconstruction, "[place] pouch " Appendectomy Ivan in left femur Band around pelvis and hip Coronary artery bypass grafting Cholecystectomy Coronary artery stent Appendicovesicostomy Colostomy Left nephrectomy Tonsillectomy C5 6 fusion C7 discectomy Allergies: Coded Allergies: Compazine (Verified Allergy, Severe, MUSCLE CONTRACTURES, 08/29/16) Contrast Media (Verified Allergy, Severe, Anaphylaxis, 08/29/16) Thorazine (Verified Allergy, Severe, MUSCLE CONTRACTURES, 08/29/16) *MDRO Multi-Drug Resistant Organism (Verified Adverse Reaction, Unknown, MRSA, 10/23/16) 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 & 10/20/16 [id number] PN- (urine) 10/18/16, MRSA (heel) 10/19/16 Objective . Vital Signs Date Time Temp Pulse Resp B/P Pulse Ox O2 Delivery O2 Flow Rate FiO2 10/23/16 12:00 97.1 65 18 179/84 96 10/23/16 08:11 96 Nasal Cannula 2.00 10/23/16 08:00 96.6 63 18 166/80 96 10/23/16 08:00 66 10/23/16 04:00 Nasal Cannula 2.00 10/23/16 04:00 96.7 68 22 165/80 97 10/23/16 00:00 96.9 62 20 162/81 98 10/23/16 00:00 Nasal Cannula 2.00 10/22/16 20:00 Nasal Cannula 2.00 10/22/16 20:00 54 10/22/16 20:00 96.4 61 20 168/88 98 10/22/16 16:58 120/80 10/22/16 16:00 97.9 66 19 189/91 98 10/22/16 10/22/16 10/23/16 14:59 22:59 06:59 Intake Total 2105 ml 2083 ml 1023 ml Output Total 1400 ml 2350 ml 1550 ml Balance 705 ml -267 ml -527 ml Intake Oral 1080 ml 320 ml 240 ml IV Total 1025 ml 1763 ml 783 ml Output Urine Total 1000 ml 2050 ml 1550 ml Stool Total 400 ml 300 ml # Bowel Movements 1 . Laboratory Tests Test 10/22/16 10/23/16 04:53 04:28 White Blood Count 9.7 TH/MM3 9.0 TH/MM3 Red Blood Count 3.17 MIL/MM3 3.34 MIL/MM3 Hemoglobin 7.8 GM/DL 8.5 GM/DL Hematocrit 25.4 % 26.9 % Mean Corpuscular Volume 80.0 FL 80.5 FL Mean Corpuscular Hemoglobin 24.6 PG 25.4 PG Mean Corpuscular Hemoglobin 30.8 % 31.6 % Concent Red Cell Distribution Width 19.6 % 20.4 % Platelet Count 217 TH/MM3 205 TH/MM3 Mean Platelet Volume 6.8 FL 7.2 FL Laboratory Tests Test 10/22/16 10/23/16 04:53 04:28 Sodium Level 142 MEQ/L 147 MEQ/L Potassium Level 3.3 MEQ/L 3.8 MEQ/L Chloride Level 108 MEQ/L 113 MEQ/L Carbon Dioxide Level 24.5 MEQ/L 24.2 MEQ/L Anion Gap 10 MEQ/L 10 MEQ/L Blood Urea Nitrogen 68 MG/DL 60 MG/DL Creatinine 5.63 MG/DL 5.18 MG/DL Estimat Glomerular Filtration 10 ML/MIN 11 ML/MIN Rate Random Glucose 97 MG/DL 90 MG/DL Calcium Level 6.7 MG/DL 7.3 MG/DL Protein Corrected Calcium 7.2 MG/DL 7.8 MG/DL Phosphorus Level 5.2 MG/DL 5.4 MG/DL Total Protein 6.0 GM/DL 6.2 GM/DL Microbiology Date/Time Procedure Status Source Growth 10/22/16 16:30 Urine Culture - Preliminary Resulted Urine Catheterized Urine IMMATURE GROWTH - REINCUBATE Imaging Renal Ultrasound 10/18/16 0000 Signed Impressions: Service Date/Time: Tuesday, October 18, 2016 15:27 - CONCLUSION: 1. Hydronephrosis of the right kidney. 2. Cystectomy with neobladder. Alok Upton MD Chest X-Ray 10/18/16 0000 Signed Impressions: Service Date/Time: Tuesday, October 18, 2016 12:44 - CONCLUSION: Possible mild bibasilar atelectasis. Deborah Dean MD Abdomen/Pelvis CT 10/18/16 0000 Signed Impressions: Service Date/Time: Tuesday, October 18, 2016 16:07 - CONCLUSION: 1. There is hydronephrosis of the right kidney similar to previous study with neobladder and ileostomy. 2. 3 mm nonobstructing right renal calculus. 3. Left nephrectomy. Alok Upton MD Physical Exam GENERAL: awake and alert, not in respiratory distress. SKIN: Warm and dry. No generalized rash HEAD: Atraumatic. Normocephalic. No temporal wasting, or tenderness. EYES: [place] conjunctiva. No petechia or hemorrhage. Pupils equal, round and reactive to light. Extraocular movements full and intact. No scleral icterus. EARS, NOSE AND THROAT: Nose without bleeding or purulent nasal discharge. No sinus tenderness. Mucous membranes pink and moist. No oral lesions noted. NECK: Trachea midline. Supple and not tender, no meningeal signs CARDIOVASCULAR: Regular rate and rhythm. No murmurs, rubs or gallops heard RESPIRATORY: Clear to auscultation. Breath sounds equal bilaterally. No rales , wheezing or rhonchi. Decreased at bases ABDOMEN: Soft, obese, multiple scars noted. Has colostomy on L with some stool. Healy in RLQ into his neobladder. Bowel sounds present and normoactive. No guarding. No rebound. EXTREMITIES: No clubbing, cyanosis. S/P amputation on his RLE, ?[place], well healed stump. L heel with ulcer, with necrotic tissue in 1/3 of open wound , no odor. Decreasing edema BLE NEUROLOGICAL: Awake and alert. Cranial nerves grossly intact. Good strength in his UE. NO movement in BLE BACK: Multiple dressings in place over wounds, not very deep PSYCHIATRIC: Normal affect, calm and cooperative. LINE: No evidence of infection : Has healy in his neobladder Assessment & Plan Remarks IMPRESSION Urosepsis due to obstruction, and inability to do self cath, with R hydro on imaging - UC Proteus, Kleb ESBL and Enterococcus CKD, creatinine still high Paraplegia Hx spina bifida Decubitus L Heel, (+) polymicrobial RECOMMENDATION Follow C/S Continue Zosyn and Zyvox Wound care Will ask podiatry to evaluate Monitor progress If patient to get D/C: will use Augmentin 500 BID and Bactrim SS BID and give 10 days on D/C If urine culture negative and seen by podiatry, would be ok to D/C from ID standpoint Vira Enrique MD Oct 23, 2016 15:52
--- NOTE | 2016-10-23 17:45 | RADRPT ---
EXAM DATE/TIME: 10/23/2016 17:13 [facility] COMPARISON: FOOT LEFT COMPLETE ([id number]), June 25, 2014, 14:22. INDICATIONS : Evaluate large open wound on left heel. MEDICAL HISTORY : Myocardial infarction. Hypercholesterolemia. Arthritis. Parapalegic. HTN. Chest pain. Blood transfusi ons.Chronic renal disease and failure. Anemia. Cdiff. MRSA. SURGICAL HISTORY : Tonsillectomy. Appendectomy. Coronary artery stent. Cardiac cath. CABG. [place]ouch. Cholecystectomy. Urinary diversion. Left nephrectomy. Flap done right ischial. Fracture left hip with hardware. Fract ure left ankle. C5-C6 fusion. C7 discectomy. ENCOUNTER: Initial ACUITY: 1 day PAIN SCORE: 5/10 LOCATION: Left foot FINDINGS: There is amputation of the fifth digit at the level of the metatarsophalangeal joint. There are post surgical fusion of the tarsal joints most of them are completely fused the without acute fracture. Th ere is diffuse osteopenia. CONCLUSION: Chronic changes and no definite signs of osteomyelitis. Deborah Dean MD on October 23, 2016 at 17:42 Board Certified Radiologist. This report was verified electronically.
--- NOTE | 2016-10-23 18:25 | HHI.NPPN ---
Subjective History of Present Illness 61-year-old male with past medical history of paraplegia, history of partial small-bowel obstruction, hypertension, hyperlipidemia, ischemic heart disease, chronic kidney disease, arthritis, anemia, history of neobladder formation with neurogenic bladder, left nephrectomy who was admitted with complaint of shortness of breath. The patient mainly came with shortness of breath and he was found to be severely acidotic with a very low pH of 6.99 and bicarb was very low and very high BUN and creatinine. The patient previously has a history of chronic kidney disease, although is not following with any chief wharfinger. His creatinine was 2.1-2.2 which was his baseline when he was admitted last month. Additional Remarks Patient is alert,complaining of back pain, no SOB. Review of Systems General Constitutional: Fatigue Respiratory Lungs: SOB Cardiovascular Cardiac: BAEZ Objective Data Data 10/22/16 10/23/16 19:00 07:00 Intake Total 2105 ml 3106 ml Output Total 1400 ml 3900 ml Balance 705 ml -794 ml Intake Oral 1080 ml 560 ml IV Total 1025 ml 2546 ml Output Urine Total 1000 ml 3600 ml Stool Total 400 ml 300 ml # Bowel Movements 1 Vital Signs Date Time Temp Pulse Resp B/P Pulse Ox O2 Delivery O2 Flow Rate FiO2 10/23/16 17:10 97 Nasal Cannula 2.00 10/23/16 16:00 96.7 73 18 181/88 97 10/23/16 12:00 97.1 65 18 179/84 96 10/23/16 08:11 96 Nasal Cannula 2.00 10/23/16 08:00 96.6 63 18 166/80 96 10/23/16 08:00 66 10/23/16 04:00 Nasal Cannula 2.00 10/23/16 04:00 96.7 68 22 165/80 97 10/23/16 00:00 96.9 62 20 162/81 98 10/23/16 00:00 Nasal Cannula 2.00 10/22/16 20:00 Nasal Cannula 2.00 10/22/16 20:00 54 10/22/16 20:00 96.4 61 20 168/88 98 -: 10/23/16 0428 10/23/16 0428 Physical Exam General Appearance: Well Nourished, No Acute Distress, Comfortable Eyes Eye Exam: Pupils Equal Throat Throat Exam: Oral Mucosa [place] & Moist Neck Neck Exam: Neck Supple Pulmonary Resp Exam: Breath Sounds Equal, No Distress, Decreased Bases Cardiology CV Exam: Regular, Normal Sinus Rhythm Gastrointestinal/Abdomen GI Exam: Soft, Non-Tender, Bowel Sounds Present Extremeties Extremities Exam: Trace Edema Neurologic Neuro Exam: Alert, Awake, Oriented Psychiatric Psych Exam: Appropriate Responses Assessment/Plan Assessment Summary: VIJAY/Acute Renal Failure, CKD Stage III Electrolyte Assessment: Hypocalcemia, Hypokalemia, Metabolic Acidosis Problem List: (1) Leukocytosis (2) Acidemia (3) Respiratory distress (4) Paraplegia (5) UTI (urinary tract infection) (6) CKD (chronic kidney disease), stage III (7) Acute renal failure Plan Patient has advance stage 3 chronic kidney disease, and develop VIJAY, with severe metabolic acidosis. Also has UTI and obstructive uropathy. Has low K , and calcium, replaced. Urine out put is good. Creatinine is slowly improving. K is normal, continue IVF. Follow the urine out put and BMP. Problem Qualifiers (1) UTI (urinary tract infection): Lynsey Goldman MD Oct 23, 2016 18:25
[2016-10-24] VITALS (8 sets, daily range): BP systolic 157–197; BP diastolic 72–93; PULSE 57–70; RESP 20–22; TEMP 96.7–98; O2SAT 94–98
[2016-10-24] MEDS: PIPERACIL-TAZO 2.25 GM PREMIX 50 ML IV SCH ×3 (00:23→16:45)
[2016-10-24] MEDS: SODIUM CHLOR 0.9% 1000 ML INJ 1,000 ML IV SCH (00:45)
[2016-10-24] MEDS: RESP: ALBUTEROL 2.5 MG/IPRATROPIUM 0.5 MG NEB (PRN) INH ×2 (00:53→10:22)
[2016-10-24] MEDS: CHLORHEXIDINE GLUCONATE 2 % 1 PACK (2 CLOTHS) TOP SCH (03:40)
[2016-10-24] MEDS: CALCIUM CARBONATE 1.25 GM (CA 500 MG) TAB PO SCH ×3 (05:18→22:05)
[2016-10-24] MEDS: hydrALAZINE HCL 100 MG TAB PO SCH ×3 (05:18→22:05)
[2016-10-24] MEDS: HEPARIN SODIUM - SQ 10,000 UNITS/ML VIAL SQ SCH ×2 (05:18→16:46)
[2016-10-24] MEDS: INSULIN ASPART SUPPLEMENTAL SCALE SQ SCH ×4 (05:23→21:00)
[2016-10-24] MEDS: POLYETHYLENE GLYCOL 17 GM PKG PO SCH (09:00)
[2016-10-24] MEDS: DOCUSATE SODIUM 50 MG/SENNA 8.6 MG TAB PO SCH ×2 (09:00→22:05)
[2016-10-24] MEDS: ASPIRIN EC 81 MG TABEC PO SCH (09:29)
[2016-10-24] MEDS: LINEZOLID 600 MG TAB PO SCH ×2 (09:29→22:05)
[2016-10-24] MEDS: CALCITRIOL 0.25 MCG CAP PO SCH (09:29)
[2016-10-24] MEDS: COLLAGENASE OINT 30 GM TUBE TOPICAL SCH (09:30)
[2016-10-24] MEDS: amLODIPine BESYLATE 5 MG TAB PO SCH (10:05)
[2016-10-24] MEDS: METOPROLOL SUCCINATE 25 MG EXTENDED RELEASE TAB PO SCH (10:06)
[2016-10-24] MEDS: FUROSEMIDE 20 MG/2 ML VIAL IV PUSH SCH ×2 (11:21→16:46)
--- NOTE | 2016-10-24 11:31 | HHI.PR ---
Subjective Remarks F/U for acute renal failure and infection Patient stated that he feels like he has to much fluid in him. He stated that he feels like a balloon. Patient was put on oxygen today. Otherwise he has no other complaints. Dealt with patient's nurse who stated that his blood pressure continues to be elevated. She had no other complaints. Also I had to call the lab because patient's labs were ordered at 5 AM today but at 10 am when I saw patient no blood work was obtained. I spoke to the lab and they stated that there already sent somebody. Objective Vitals Vital Signs Date Time Temp Pulse Resp B/P Pulse Ox O2 Delivery O2 Flow Rate FiO2 10/24/16 10:25 95 Nasal Cannula 2.00 10/24/16 08:00 96.7 70 22 197/93 96 10/24/16 04:00 170/90 10/24/16 00:59 98 Nasal Cannula 3.00 10/24/16 00:00 98.0 67 20 194/72 98 10/23/16 20:00 97.8 68 20 187/84 96 10/23/16 20:00 56 10/23/16 17:10 97 Nasal Cannula 2.00 10/23/16 16:00 96.7 73 18 181/88 97 10/23/16 12:00 97.1 65 18 179/84 96 I/O 10/23/16 10/23/16 10/23/16 10/24/16 10/24/16 10/24/16 07:00 15:00 23:00 07:00 15:00 23:00 Intake Total 1023 ml 1227 ml 1107 ml 910 ml Output Total 1550 ml 900 ml 1200 ml 1350 ml Balance -527 ml 327 ml -93 ml -440 ml Intake Oral 240 ml 340 ml 360 ml 360 ml IV Total 783 ml 887 ml 747 ml 550 ml Output Urine Total 1550 ml 900 ml 1200 ml 1100 ml Stool Total 250 ml # Bowel Movements 1 1 Result Diagram: 10/23/16 0428 10/23/16 0428 Imaging Last Impressions Foot X-Ray 10/23/16 0000 Signed Impressions: Service Date/Time: Sunday, October 23, 2016 17:13 - CONCLUSION: Chronic changes and no definite signs of osteomyelitis. K. Christian Dean MD Renal Ultrasound 10/18/16 0000 Signed Impressions: Service Date/Time: Tuesday, October 18, 2016 15:27 - CONCLUSION: 1. Hydronephrosis of the right kidney. 2. Cystectomy with neobladder. Alok Upton MD Chest X-Ray 10/18/16 0000 Signed Impressions: Service Date/Time: Tuesday, October 18, 2016 12:44 - CONCLUSION: Possible mild bibasilar atelectasis. Deborah Dean MD Abdomen/Pelvis CT 10/18/16 0000 Signed Impressions: Service Date/Time: Tuesday, October 18, 2016 16:07 - CONCLUSION: 1. There is hydronephrosis of the right kidney similar to previous study with neobladder and ileostomy. 2. 3 mm nonobstructing right renal calculus. 3. Left nephrectomy. Alok Upton MD Objective Remarks GENERAL: Morbidly obese male, semi-recumbent in bed, in no acute distress HEENT: Normocephalic. Atraumatic. Pupils equal, round, reactive, conjugate. Mucous membranes are moist NECK: Trachea is midline. Large ford and large obese neck prevents the assessment of JVD CHEST: Equal chest rise, breath sounds clear to auscultation, no dyspnea noted remains on 2 L nasal cannula CARDIOVASCULAR: Normal rate, regular rhythm. Sinus by telemetry ABDOMEN: Soft, morbidly obese, nontender, nondistended. No guarding. Multiple healed scars around the abdomen, including median scar. There is a colostomy bag that exits the left lower quadrant, with stool output. Dressing neobladder with Jean catheter C/D/I in the right lower quadrant, draining clear urine. MUSCULOSKELETAL: Radial Pulses 2+. 1+ pitting edema peripherally, noted previous right foot amputation Skin: left heel ulcerating with purulent discharge. Medications and IVs Current Medications Sodium Bicarbonate 50 meq 50 meq ONCE ONCE IV PUSH Last administered on 15:34; Start 10/18/16 at 14:30; Stop 10/18/16 at 14:31; Status DC Sodium Bicarbonate/ Dextrose (Sodium Bicarbonate 8.4% Inj/D5W 1000 ml Inj) 1, 150 ml @ 150 mls/hr Q7H40M IV Last administered on 10/20/16 01:17; Start at 15:00; Stop 10/20/16 at 16:33; Status DC Dextrose (D50w (Vial) Inj) 25 ml UNSCH PRN IV PUSH HYPOGLYCEMIA-SEE COMMENTS; Start 10/18/16 at 14:30; Stop 10/19/16 at 10:29; Status DC Insulin Human Regular (NovoLIN R SUPPLEMENTAL SCALE) 1 ACHS AND 3AM SQ ; Start 10/18/16 at 16:00; Stop 10/19/16 at 10:34; Status DC Sodium Bicarbonate 150 meq 150 meq ONCE ONCE IV PUSH Last administered on 10/18 15:20; Start 10/18/16 at 14:45; Stop 10/18/16 at 14:46; Status DC Piperacillin Sod/ Tazobactam Sod (Zosyn 2.25 Gm Premix) 50 ml @ 100 mls/hr Q8H IV Last administered on 10/24/16 09:29; Start 10/18/16 at 17:00 Ondansetron HCl (Zofran Inj) 4 mg Q6H PRN IV NAUSEA OR VOMITING Last administered on 10/18/16 18:40; Start 10/18/16 at 16:30 Albuterol/ Ipratropium (Duoneb Neb) 1 ampule Q2HR NEB PRN INH WHEEZING Last administered on 10/24/16 10:22; Start 10/18/16 at 16:30 Heparin Sodium (Porcine) (Heparin Inj) 5,000 units Q12H SQ Last administered on 10/24/16 05:18; Start 10/18/16 at 18:00 Miscellaneous Information 1 [id number] XX Last administered on 10/18/16 16:30; Start 10/18/16 at 16:30 Chlorhexidine Gluconate (Chlorhexidine 2% Cloth) Taper DAILY@04 TOP Last administered on 10/20/16 04:00; Start 10/19/16 at 04:00; Stop 10/15/17 at 03:59 Chlorhexidine Gluconate (Chlorhexidine 2% Cloth) 3 pack UNSCH PRN TOP HYGIENIC CARE; Start 10/18/16 at 16:30 Senna/Docusate Sodium (Margarita-Colace) 1 tab BID PO Last administered on 20:38; Start 10/18/16 at 21:00 Calcium Acetate 1334 mg 1,334 mg TID PO Last administered on 10/21/16 09:56; Start 10/19/16 at 09:00; Stop 10/21/16 at 16:52; Status DC Calcium Gluconate/ Dextrose (Calcium Gluconate Inj/D5W 100 ml Inj) 120 ml @ 120 mls/hr ONCE ONCE IV Last administered on 10/19/16 00:54; Start 10/19/16 at 01:00; Stop 10/19/16 at 01:59; Status DC Sodium Bicarbonate (Sodium Bicarbonate 8.4% Inj) 50 meq STK-MED ONCE .ROUTE ; Start 10/19/16 at 05:42; Stop 10/19/16 at 05:43; Status DC Sodium Bicarbonate 100 meq 100 meq NOW ONCE IV PUSH Last administered on 05:51; Start 10/19/16 at 06:00; Stop 10/19/16 at 06:01; Status DC Potassium Chloride 100 ml @ 50 mls/hr Q2H IV Last administered on 10/19/16 13 :22; Start 10/19/16 at 10:00; Stop 10/19/16 at 13:59; Status DC Calcium Gluconate 2 gm/Sodium Chloride 120 ml @ 120 mls/hr ONCE ONCE IV Last administered on 10/19/16 10:13; Start 10/19/16 at 10:30; Stop 10/19/16 at 11:29 ; Status DC Magnesium Sulfate/ Dextrose 100 ml @ 100 mls/hr Q1H IV Last administered on 11:25; Start 10/19/16 at 10:00; Stop 10/19/16 at 11:59; Status DC Cefepime HCl 2000 mg/Sodium Chloride 100 ml @ 200 mls/hr Q8H IV ; Start at 11:00; Stop 10/19/16 at 11:00; Status DC Sodium Chloride (NS 500 ml Inj) 500 ml @ 500 mls/hr BOLUS ONCE IV Last administered on 10/19/16 10:15; Start 10/19/16 at 10:00; Stop 10/19/16 at 10:59 ; Status DC Dextrose (D50w (Syr) Inj) 50 ml UNSCH PRN IV HYPOGLYCEMIA-SEE COMMENTS; Start 10/19/16 at 10:30 Glucagon (Glucagon Inj) 1 mg UNSCH PRN OTHER HYPOGLYCEMIA-SEE COMMENTS; Start 10/19/16 at 10:00; Stop 10/24/16 at 09:55; Status DC Insulin Aspart (NovoLOG SUPPLEMENTAL SCALE) 1 ACHS SLIDING SCALE SQ Last administered on 10/20/16 21:06; Start 10/19/16 at 11:00 Aspirin 81 mg 81 mg DAILY PO Last administered on 10/24/16 09:29; Start at 10:30 Linezolid (Zyvox 600 Mg Premix) 300 ml @ 300 mls/hr Q12H IV Last administered on 10/22/16 11:56; Start 10/19/16 at 11:00; Stop 10/22/16 at 13:55; Status DC Potassium Bicarb/ Potassium Chloride 50 meq 50 meq NOW ONCE PO Last administered on 10/19/16 10:44; Start 10/19/16 at 10:45; Stop 10/19/16 at 10:46 ; Status DC Calcium Gluconate 2 gm/Sodium Chloride 120 ml @ 120 mls/hr NOW IV Last administered on 10/19/16 21:47; Start 10/19/16 at 21:45; Stop 10/19/16 at 22:44 ; Status DC Potassium Chloride 100 ml @ 50 mls/hr Q2H IV Last administered on 10/20/16 01 :19; Start 10/19/16 at 22:00; Stop 10/20/16 at 01:59; Status DC Calcium Gluconate 2 gm/Sodium Chloride 120 ml @ 120 mls/hr NOW ONCE IV Last administered on 10/20/16 10:27; Start 10/20/16 at 10:00; Stop 10/20/16 at 10:59 ; Status DC Sodium Chloride (NS 1000 ml Inj) 1,000 ml @ 100 mls/hr Q10H IV Last administered on 10/23/16 14:45; Start 10/20/16 at 16:45; Stop 10/24/16 at 09:55 ; Status DC Polyethylene Glycol (Miralax) 17 gm DAILY PO ; Start 10/20/16 at 20:00 Oxycodone HCl (Roxicodone) 10 mg Q6H PRN PO PAIN SCALE 7 TO 10 Last administered on 10/24/16 09:59; Start 10/21/16 at 10:15 Potassium Bicarb/ Potassium Chloride (K-Lyte Cl Eff) 50 meq NOW ONCE PO Last administered on 10/21/16 12:51; Start 10/21/16 at 13:00; Stop 10/21/16 at 13:01 ; Status DC Calcitriol (Rocaltrol) 0.5 mcg DAILY PO Last administered on 10/24/16 09:29; Start 10/21/16 at 17:00 Calcium Carbonate (Oscal) 1,000 mg Q8HR PO Last administered on 10/24/16 05:18 ; Start 10/21/16 at 22:00 Dofetilide (Tikosyn) 500 mcg BID PO ; Start 10/21/16 at 21:00; Stop 10/21/16 at 21:43; Status DC Potassium Chloride (KCl) 40 meq ONCE ONCE PO Last administered on 10/22/16 07 :22; Start 10/22/16 at 06:45; Stop 10/22/16 at 06:46; Status DC Calcium Gluconate 1 gm 1 gm ONCE ONCE IV PUSH ; Start 10/22/16 at 06:45; Stop 10/22/16 at 06:46; Status Cancel Calcium Gluconate/ Sodium Chloride (Calcium Gluconate Inj/NS Inj) 110 ml @ 220 mls/hr ONCE ONCE IV Last administered on 10/22/16 08:19; Start 10/22/16 at 07 :00; Stop 10/22/16 at 07:29; Status DC Hydralazine HCl (Apresoline) 50 mg Q8HR PO Last administered on 10/23/16 06:09 ; Start 10/22/16 at 12:45; Stop 10/23/16 at 11:12; Status DC Collagenase (Santyl Oint) 1 applic DAILY TOPICAL Last administered on 09:30; Start 10/22/16 at 12:45 Linezolid (Zyvox) 600 mg Q12HR PO Last administered on 10/24/16 09:29; Start 10/22/16 at 21:00 Hydralazine HCl (Apresoline) 100 mg Q8HR PO Last administered on 10/24/16 05: 18; Start 10/23/16 at 14:00 Amlodipine Besylate (Norvasc) 5 mg DAILY PO Last administered on 10/24/16 10: 05; Start 10/24/16 at 10:00 Metoprolol Succinate (Toprol Xl) 25 mg DAILY PO Last administered on 10/24/16 10:06; Start 10/24/16 at 10:00 Furosemide (Lasix Inj) 20 mg BID@09,18 IV PUSH ; Start 10/24/16 at 10:30 A/P Assessment and Plan Acute respiratory failure -Initially it resolved but he is now symptomatic. -He is volume overloaded. He is in no respiratory distress but is requiring oxygen. -Will stop IV fluids and give him Lasix. Strict ins and outs. -Continue to monitor clinically. Acute kidney injury-secondary to obstructive uropathy S/P left nephrectomy, cystectomy with neobladder -Jean place with improvement in symptoms. --Neobladder catheter draining -Urology following Dr. Shelton -Per Dr. Shelton to keep catheter in until his creatinines around his baseline 2. -Follow-up nephrology Following - Strict I/Os Hydronephrosis right kidney -Due to the above. Sepsis -Secondary to the above. Treated. Resolved. Hypertension H/O CABG, cardiac stent -Initially antihypertensive medication was held secondary to hypotension. Continue hydralazine. Will restart his metoprolol and amlodipine. Adjust accordingly. -Continue ASA 81 mg/day Chronic Left heel [id number] -Infectious disease following. -On Zosyn and PO Linezolid -Cultures growing proteus mirabilis, MRSA, group D enterococcus. -Wound care nurse consulted. UTI -Growing enterococcus faecalis, Klebsiella pneumonia ESBL positive, protease mirabilis -Patient on Zosyn and Zyvox. -Infectious disease following. -Urine cultures repeated. Right issue wound [id number] -stable S/P C5-C6 fusion, C7 discectomy -Stable. Prophylaxis: GI Prophylaxis DVT Prophylaxis -- SCDs Dealt with patient and his nurse extensively on medical management. Crystal Gallegos MD Oct 24, 2016 11:31
[2016-10-24 11:37] LABS: HEMATOCRIT 27.1 % (39.0-51.0); MEAN CELL VOLUME 81.4 FL (80.0-100.0); MEAN CORPUSCULAR HEMOGLOBIN 25.7 PG (27.0-34.0); MEAN CORPUSCULAR HGB CONC 31.5 % (32.0-36.0); PLATELET COUNT 181 TH/MM3 (150-450); RED BLOOD COUNT 3.33 MIL/MM3 (4.50-5.90); RED CELL DISTRIBUTION WIDTH 20.5 % (11.6-17.2); REVIEW FLAG FINAL; WHITE BLOOD COUNT 8.5 TH/MM3 (4.0-11.0)
[2016-10-24 12:06] LABS: BICARBONATE 22.4 MEQ/L (21.0-32.0); POTASSIUM 3.6 MEQ/L (3.5-5.1)
[2016-10-24 12:25] LABS: CALCIUM-PROTEIN CORRECTED 7.9 MG/DL (8.5-10.1)
--- NOTE | 2016-10-24 12:41 | PD.POD.CON ---
Patient Intake Chief Complaint Ulceration of the left heel Consult Requested by Dr.. Hawkins Reason for Consult Treatment of left heel ulceration Primary Care Physician Non-Staff History of Present Illness Patient is a 61-year-old paraplegic male known to me from previous admissions. 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 Patient has a Charcot breakdown of the left foot previous midfoot fusion and amputation of the fifth ray. Patient was admitted for renal failure and respiratory distress and was asked to see the patient concerning his left heel wound patient was seen by another development mgr on his last visit had Santyl ordered to the area. Appears he has completed his home health care visits and no treatment has been performed since late August early September. Coded Allergies: Compazine (Verified Allergy, Severe, MUSCLE CONTRACTURES, 08/29/16) Contrast Media (Verified Allergy, Severe, Anaphylaxis, 08/29/16) Thorazine (Verified Allergy, Severe, MUSCLE CONTRACTURES, 08/29/16) *MDRO Multi-Drug Resistant Organism (Verified Adverse Reaction, Unknown, MRSA, 10/23/16) 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 & 10/20/16 ESBL-KL PN- (urine) 10/18/16, MRSA (heel) 10/19/16 Preferred Language to Discuss: [place] Barriers to Learning: Physical Teaching Method: Discussion Vital Signs Date Time Temp Pulse Resp B/P Pulse Ox O2 Delivery O2 Flow Rate FiO2 10/24/16 10:25 95 Nasal Cannula 2.00 10/24/16 08:00 96.7 70 22 197/93 96 10/24/16 04:00 170/90 10/24/16 00:59 98 Nasal Cannula 3.00 10/24/16 00:00 98.0 67 20 194/72 98 10/23/16 20:00 97.8 68 20 187/84 96 10/23/16 20:00 56 10/23/16 17:10 97 Nasal Cannula 2.00 10/23/16 16:00 96.7 73 18 181/88 97 Pain scale used: 0-10 numeric scale Pain score: 0 Medications Current Medications Sodium Bicarbonate 50 meq 50 meq ONCE ONCE IV PUSH Last administered on t 15:34; Start 10/18/16 at 14:30; Stop 10/18/16 at 14:31; Status DC Sodium Bicarbonate/ Dextrose (Sodium Bicarbonate 8.4% Inj/D5W 1000 ml Inj) 1, 150 ml @ 150 mls/hr Q7H40M IV Last administered on 10/20/16 01:17; Start at 15:00; Stop 10/20/16 at 16:33; Status DC Dextrose (D50w (Vial) Inj) 25 ml UNSCH PRN IV PUSH HYPOGLYCEMIA-SEE COMMENTS; Start 10/18/16 at 14:30; Stop 10/19/16 at 10:29; Status DC Insulin Human Regular (NovoLIN R SUPPLEMENTAL SCALE) 1 ACHS AND 3AM SQ ; Start 10/18/16 at 16:00; Stop 10/19/16 at 10:34; Status DC Sodium Bicarbonate 150 meq 150 meq ONCE ONCE IV PUSH Last administered on 10/18 15:20; Start 10/18/16 at 14:45; Stop 10/18/16 at 14:46; Status DC Piperacillin Sod/ Tazobactam Sod (Zosyn 2.25 Gm Premix) 50 ml @ 100 mls/hr Q8H IV Last administered on 10/24/16 09:29; Start 10/18/16 at 17:00 Ondansetron HCl (Zofran Inj) 4 mg Q6H PRN IV NAUSEA OR VOMITING Last administered on 10/18/16 18:40; Start 10/18/16 at 16:30 Albuterol/ Ipratropium (Duoneb Neb) 1 ampule Q2HR NEB PRN INH WHEEZING Last administered on 10/24/16 10:22; Start 10/18/16 at 16:30 Heparin Sodium (Porcine) (Heparin Inj) 5,000 units Q12H SQ Last administered on 10/24/16 05:18; Start 10/18/16 at 18:00 Miscellaneous Information 1 Q361D XX Last administered on 10/18/16 16:30; Start 10/18/16 at 16:30 Chlorhexidine Gluconate (Chlorhexidine 2% Cloth) Taper DAILY@04 TOP Last administered on 10/20/16 04:00; Start 10/19/16 at 04:00; Stop 10/15/17 at 03:59 Chlorhexidine Gluconate (Chlorhexidine 2% Cloth) 3 pack UNSCH PRN TOP HYGIENIC CARE; Start 10/18/16 at 16:30 Senna/Docusate Sodium (Margarita-Colace) 1 tab BID PO Last administered on 20:38; Start 10/18/16 at 21:00 Calcium Acetate 1334 mg 1,334 mg TID PO Last administered on 10/21/16 09:56; Start 10/19/16 at 09:00; Stop 10/21/16 at 16:52; Status DC Calcium Gluconate/ Dextrose (Calcium Gluconate Inj/D5W 100 ml Inj) 120 ml @ 120 mls/hr ONCE ONCE IV Last administered on 10/19/16 00:54; Start 10/19/16 at 01:00; Stop 10/19/16 at 01:59; Status DC Sodium Bicarbonate (Sodium Bicarbonate 8.4% Inj) 50 meq STK-MED ONCE .ROUTE ; Start 10/19/16 at 05:42; Stop 10/19/16 at 05:43; Status DC Sodium Bicarbonate 100 meq 100 meq NOW ONCE IV PUSH Last administered on 05:51; Start 10/19/16 at 06:00; Stop 10/19/16 at 06:01; Status DC Potassium Chloride 100 ml @ 50 mls/hr Q2H IV Last administered on 10/19/16 13 :22; Start 10/19/16 at 10:00; Stop 10/19/16 at 13:59; Status DC Calcium Gluconate 2 gm/Sodium Chloride 120 ml @ 120 mls/hr ONCE ONCE IV Last administered on 10/19/16 10:13; Start 10/19/16 at 10:30; Stop 10/19/16 at 11:29 ; Status DC Magnesium Sulfate/ Dextrose 100 ml @ 100 mls/hr Q1H IV Last administered on 11:25; Start 10/19/16 at 10:00; Stop 10/19/16 at 11:59; Status DC Cefepime HCl 2000 mg/Sodium Chloride 100 ml @ 200 mls/hr Q8H IV ; Start at 11:00; Stop 10/19/16 at 11:00; Status DC Sodium Chloride (NS 500 ml Inj) 500 ml @ 500 mls/hr BOLUS ONCE IV Last administered on 10/19/16 10:15; Start 10/19/16 at 10:00; Stop 10/19/16 at 10:59 ; Status DC Dextrose (D50w (Syr) Inj) 50 ml UNSCH PRN IV HYPOGLYCEMIA-SEE COMMENTS; Start 10/19/16 at 10:30 Glucagon (Glucagon Inj) 1 mg UNSCH PRN OTHER HYPOGLYCEMIA-SEE COMMENTS; Start 10/19/16 at 10:00; Stop 10/24/16 at 09:55; Status DC Insulin Aspart (NovoLOG SUPPLEMENTAL SCALE) 1 ACHS SLIDING SCALE SQ Last administered on 10/20/16 21:06; Start 10/19/16 at 11:00 Aspirin 81 mg 81 mg DAILY PO Last administered on 10/24/16 09:29; Start at 10:30 Linezolid (Zyvox 600 Mg Premix) 300 ml @ 300 mls/hr Q12H IV Last administered on 10/22/16 11:56; Start 10/19/16 at 11:00; Stop 10/22/16 at 13:55; Status DC Potassium Bicarb/ Potassium Chloride 50 meq 50 meq NOW ONCE PO Last administered on 10/19/16 10:44; Start 10/19/16 at 10:45; Stop 10/19/16 at 10:46 ; Status DC Calcium Gluconate 2 gm/Sodium Chloride 120 ml @ 120 mls/hr NOW IV Last administered on 10/19/16 21:47; Start 10/19/16 at 21:45; Stop 10/19/16 at 22:44 ; Status DC Potassium Chloride 100 ml @ 50 mls/hr Q2H IV Last administered on 10/20/16 01 :19; Start 10/19/16 at 22:00; Stop 10/20/16 at 01:59; Status DC Calcium Gluconate 2 gm/Sodium Chloride 120 ml @ 120 mls/hr NOW ONCE IV Last administered on 10/20/16 10:27; Start 10/20/16 at 10:00; Stop 10/20/16 at 10:59 ; Status DC Sodium Chloride (NS 1000 ml Inj) 1,000 ml @ 100 mls/hr Q10H IV Last administered on 10/23/16 14:45; Start 10/20/16 at 16:45; Stop 10/24/16 at 09:55 ; Status DC Polyethylene Glycol (Miralax) 17 gm DAILY PO ; Start 10/20/16 at 20:00 Oxycodone HCl (Roxicodone) 10 mg Q6H PRN PO PAIN SCALE 7 TO 10 Last administered on 10/24/16 09:59; Start 10/21/16 at 10:15 Potassium Bicarb/ Potassium Chloride (K-Lyte Cl Eff) 50 meq NOW ONCE PO Last administered on 10/21/16 12:51; Start 10/21/16 at 13:00; Stop 10/21/16 at 13:01 ; Status DC Calcitriol (Rocaltrol) 0.5 mcg DAILY PO Last administered on 10/24/16 09:29; Start 10/21/16 at 17:00 Calcium Carbonate (Oscal) 1,000 mg Q8HR PO Last administered on 10/24/16 05:18 ; Start 10/21/16 at 22:00 Dofetilide (Tikosyn) 500 mcg BID PO ; Start 10/21/16 at 21:00; Stop 10/21/16 at 21:43; Status DC Potassium Chloride (KCl) 40 meq ONCE ONCE PO Last administered on 10/22/16 07 :22; Start 10/22/16 at 06:45; Stop 10/22/16 at 06:46; Status DC Calcium Gluconate 1 gm 1 gm ONCE ONCE IV PUSH ; Start 10/22/16 at 06:45; Stop 10/22/16 at 06:46; Status Cancel Calcium Gluconate/ Sodium Chloride (Calcium Gluconate Inj/NS Inj) 110 ml @ 220 mls/hr ONCE ONCE IV Last administered on 10/22/16 08:19; Start 10/22/16 at 07 :00; Stop 10/22/16 at 07:29; Status DC Hydralazine HCl (Apresoline) 50 mg Q8HR PO Last administered on 10/23/16 06:09 ; Start 10/22/16 at 12:45; Stop 10/23/16 at 11:12; Status DC Collagenase (Santyl Oint) 1 applic DAILY TOPICAL Last administered on 09:30; Start 10/22/16 at 12:45 Linezolid (Zyvox) 600 mg Q12HR PO Last administered on 10/24/16 09:29; Start 10/22/16 at 21:00 Hydralazine HCl (Apresoline) 100 mg Q8HR PO Last administered on 10/24/16 05: 18; Start 10/23/16 at 14:00 Amlodipine Besylate (Norvasc) 5 mg DAILY PO Last administered on 10/24/16 10: 05; Start 10/24/16 at 10:00 Metoprolol Succinate (Toprol Xl) 25 mg DAILY PO Last administered on 10/24/16 10:06; Start 10/24/16 at 10:00 Furosemide (Lasix Inj) 20 mg BID@09,18 IV PUSH Last administered on 10/24/16 11:21; Start 10/24/16 at 10:30 Past, Family & Social History Past Medical History PFSH Reviewed: Yes Respiratory: REPORTS HX OF: Other respiratory history Cardiovascular: REPORTS HX OF: Hyperlipidemia, Hypertension Gastrointestinal: REPORTS HX OF: Other GI history Genitourinary: REPORTS HX OF: Kidney disease Musculoskeletal: REPORTS HX OF: Osteoarthritis, Other musculoskeletal hx ( paraplegia) Cancer/Hematology: REPORTS HX OF: Anemia Past Surgical History Musculoskeletal: REPORTS HX OF: Other musculoskeletal srg Breast: DENIES HX OF: Mastectomy, bilateral, Mastectomy, left, Mastectomy, right Review of Systems Constitutional: COMPLAINS OF: Recent weight change Cardiovascular: COMPLAINS OF: Hx hypertension, Swelling legs / ankles Genitourinary: COMPLAINS OF: Renal disease Neurological: COMPLAINS OF: Numbness/tingling, Changes in sensation Exam-Podiatry Constitutional General appearance: comfortable Nutritional status: overweight (morbidly obese) Orientation: alert and oriented x3 Dermatological Exam Skin Temp - Right: Within Normal Limits Skin Texture - Right: Within Normal Limits Skin Elasticity - Right: Within Normal Limits Skin Tugor - Right: Within Normal Limits Hair Growth - Right: Within Normal Limits Pigmentation - Right: Within Normal Limits Skin Temp - Left: Within Normal Limits Skin Texture - Left: Within Normal Limits Skin Elasticity - Left: Within Normal Limits Skin Tugor - Left: Within Normal Limits Hair Growth - Left: Within Normal Limits Pigmentation - Left: Within Normal Limits Ulcers: Location/Measurements Necrotic ulceration of the left heel which may probe down to the calcaneus. No bone destruction noted on radiographs. No ascending cellulitis. Wound is growing Proteus, Citrobacter, MRSA and 2 species of enterococcus. Vascular/Lymphatic Exam R Dorsails Pedis: Palpable L Dorsails Pedis: Palpable R Posterior Tibial: Palpable L Posterior Tibial: Palpable Neurologic Exam Present on right: Anesthesia Present on left: Anesthesia Musculoskeletal Exam Details Chopart's amputation right foot Muscle Strength Dorsiflexion (Right): Atrophy Plantarflexion (Right): Atrophy Inversion (Right): Atrophy Eversion (Right): Atrophy Digital (Right): Atrophy Dorsiflexion (Left): Atrophy Plantarflexion (Left): Atrophy Inversion (Left): Atrophy Eversion (Left): Atrophy Foot Range of Motion Dorsiflexion (Right): Limited Plantarflexion (Right): Limited Inversion (Right): Limited Eversion (Right): Limited Digital (Right): Limited Dorsiflexion (Left): Limited Plantarflexion (Left): Limited Inversion (Left): Limited Eversion (Left): Limited Digital (Left): Limited Wound Assessment Wound Information - Wound One Wound Location: right Chopart's amputation site lateral aspect Wound Two Wound Location: left plantar foot Lab and Radiology Results Laboratory Current Medications Laboratory Tests Test 10/23/16 10/24/16 04:28 10:15 White Blood Count 9.0 TH/MM3 8.5 TH/MM3 Red Blood Count 3.34 MIL/MM3 3.33 MIL/MM3 Hemoglobin 8.5 GM/DL 8.6 GM/DL Hematocrit 26.9 % 27.1 % Mean Corpuscular Volume 80.5 FL 81.4 FL Mean Corpuscular Hemoglobin 25.4 PG 25.7 PG Mean Corpuscular Hemoglobin 31.6 % 31.5 % Concent Red Cell Distribution Width 20.4 % 20.5 % Platelet Count 205 TH/MM3 181 TH/MM3 Mean Platelet Volume 7.2 FL 7.4 FL Laboratory Tests Test 10/23/16 10/24/16 04:28 10:15 Sodium Level 147 MEQ/L 147 MEQ/L Potassium Level 3.8 MEQ/L 3.6 MEQ/L Chloride Level 113 MEQ/L 114 MEQ/L Carbon Dioxide Level 24.2 MEQ/L 22.4 MEQ/L Anion Gap 10 MEQ/L 11 MEQ/L Blood Urea Nitrogen 60 MG/DL 52 MG/DL Creatinine 5.18 MG/DL 4.45 MG/DL Estimat Glomerular Filtration 11 ML/MIN 14 ML/MIN Rate Random Glucose 90 MG/DL 80 MG/DL Calcium Level 7.3 MG/DL 7.4 MG/DL Protein Corrected Calcium 7.8 MG/DL 7.9 MG/DL Phosphorus Level 5.4 MG/DL 4.7 MG/DL Total Protein 6.2 GM/DL 6.1 GM/DL Microbiology Date/Time Procedure Status Source Growth 10/22/16 16:30 Urine Culture - Preliminary Resulted Urine Catheterized Urine Gram Negative Ivan Group D Enterococcus Radiology Last Impressions Foot X-Ray 10/23/16 0000 Signed Impressions: Service Date/Time: Sunday, October 23, 2016 17:13 - CONCLUSION: Chronic changes and no definite signs of osteomyelitis. Deborah Dean MD Renal Ultrasound 10/18/16 0000 Signed Impressions: Service Date/Time: Tuesday, October 18, 2016 15:27 - CONCLUSION: 1. Hydronephrosis of the right kidney. 2. Cystectomy with neobladder. Alok Upton MD Chest X-Ray 10/18/16 0000 Signed Impressions: Service Date/Time: Tuesday, October 18, 2016 12:44 - CONCLUSION: Possible mild bibasilar atelectasis. Deborah Dean MD Abdomen/Pelvis CT 10/18/16 0000 Signed Impressions: Service Date/Time: Tuesday, October 18, 2016 16:07 - CONCLUSION: 1. There is hydronephrosis of the right kidney similar to previous study with neobladder and ileostomy. 2. 3 mm nonobstructing right renal calculus. 3. Left nephrectomy. 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 Offload heel with pillows. Patient to follow up in the wound center upon discharge. 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
--- NOTE | 2016-10-24 18:09 | HHI.NPPN ---
Subjective History of Present Illness 61-year-old male with past medical history of paraplegia, history of partial small-bowel obstruction, hypertension, hyperlipidemia, ischemic heart disease, chronic kidney disease, arthritis, anemia, history of neobladder formation with neurogenic bladder, left nephrectomy who was admitted with complaint of shortness of breath. The patient mainly came with shortness of breath and he was found to be severely acidotic with a very low pH of 6.99 and bicarb was very low and very high BUN and creatinine. The patient previously has a history of chronic kidney disease, although is not following with any hotel registration clerk. His creatinine was 2.1-2.2 which was his baseline when he was admitted last month. Additional Remarks Patient is alert,complaining of back pain, no SOB. Review of Systems General Constitutional: Fatigue Respiratory Lungs: SOB Cardiovascular Cardiac: BAEZ Objective Data Data 10/23/16 10/24/16 18:59 06:59 Intake Total 1227 ml 2017 ml Output Total 900 ml 2550 ml Balance 327 ml -533 ml Intake Oral 340 ml 720 ml IV Total 887 ml 1297 ml Output Urine Total 900 ml 2300 ml Stool Total 250 ml # Bowel Movements 1 Vital Signs Date Time Temp Pulse Resp B/P Pulse Ox O2 Delivery O2 Flow Rate FiO2 10/24/16 16:00 96.9 67 20 189/89 95 10/24/16 12:00 96.8 62 20 157/81 94 10/24/16 10:25 95 Nasal Cannula 2.00 10/24/16 08:00 96.7 70 22 197/93 96 10/24/16 04:00 170/90 10/24/16 00:59 98 Nasal Cannula 3.00 10/24/16 00:00 98.0 67 20 194/72 98 10/23/16 20:00 97.8 68 20 187/84 96 10/23/16 20:00 56 -: 10/24/16 1015 10/24/16 1015 Physical Exam General Appearance: Well Nourished, No Acute Distress, Comfortable Eyes Eye Exam: Pupils Equal Throat Throat Exam: Oral Mucosa [place] Poss[place] & Moist Neck Neck Exam: Neck Supple Pulmonary Resp Exam: Breath Sounds Equal, No Distress, Decreased Bases Cardiology CV Exam: Regular, Normal Sinus Rhythm Gastrointestinal/Abdomen GI Exam: Soft, Non-Tender, Bowel Sounds Present Extremeties Extremities Exam: Trace Edema Neurologic Neuro Exam: Alert, Awake, Oriented Psychiatric Psych Exam: Appropriate Responses Assessment/Plan Assessment Summary: VIJAY/Acute Renal Failure, CKD Stage III Electrolyte Assessment: Hypocalcemia, Hypokalemia, Metabolic Acidosis Problem List: (1) Leukocytosis (2) Acidemia (3) Respiratory distress (4) Paraplegia (5) UTI (urinary tract infection) (6) CKD (chronic kidney disease), stage III (7) Acute renal failure Plan Patient has advance stage 3 chronic kidney disease, and develop VIJAY, with severe metabolic acidosis. Also has UTI and obstructive uropathy. Has low K , and calcium, replaced. Urine out put is good. Creatinine is slowly improving.Lasix was given due to edema Growing enterococcus faecalis, Klebsiella pneumonia ESBL positive, protease mirabilis Patient on Zosyn and Zyvox. add Albumin 25 gm q 12 Problem Qualifiers (1) UTI (urinary tract infection): Salas Dsouza MD Oct 24, 2016 18:09
[2016-10-24] MEDS: ALBUMIN HUMAN 25% 25 GM/100 ML BAGP IV SCH (18:51)
[2016-10-25] VITALS (8 sets, daily range): BP systolic 145–185; BP diastolic 72–87; PULSE 65–84; RESP 17–22; TEMP 97.3–97.9; O2SAT 94–96
[2016-10-25] MEDS: RESP: ALBUTEROL 2.5 MG/IPRATROPIUM 0.5 MG NEB (PRN) INH ×5 (00:37→21:20)
[2016-10-25] MEDS: PIPERACIL-TAZO 2.25 GM PREMIX 50 ML IV SCH ×4 (02:07→23:26)
[2016-10-25] MEDS: CHLORHEXIDINE GLUCONATE 2 % 1 PACK (2 CLOTHS) TOP SCH (02:14)
[2016-10-25] MEDS: INSULIN ASPART SUPPLEMENTAL SCALE SQ SCH ×4 (06:11→21:00)
[2016-10-25] MEDS: CALCIUM CARBONATE 1.25 GM (CA 500 MG) TAB PO SCH ×3 (06:13→23:25)
[2016-10-25] MEDS: hydrALAZINE HCL 100 MG TAB PO SCH ×3 (06:13→23:25)
[2016-10-25] MEDS: ALBUMIN HUMAN 25% 25 GM/100 ML BAGP IV SCH ×2 (06:14→18:58)
[2016-10-25] MEDS: HEPARIN SODIUM - SQ 10,000 UNITS/ML VIAL SQ SCH ×2 (06:14→17:22)
[2016-10-25 08:50] LABS: HEMATOCRIT 25.4 % (39.0-51.0); MEAN CORPUSCULAR HEMOGLOBIN 25.6 PG (27.0-34.0); MEAN CORPUSCULAR HGB CONC 31.7 % (32.0-36.0); PLATELET COUNT 155 TH/MM3 (150-450); RED BLOOD COUNT 3.14 MIL/MM3 (4.50-5.90); RED CELL DISTRIBUTION WIDTH 20.1 % (11.6-17.2); REVIEW FLAG FINAL; WHITE BLOOD COUNT 7.8 TH/MM3 (4.0-11.0)
[2016-10-25] MEDS: POLYETHYLENE GLYCOL 17 GM PKG PO SCH (09:00)
[2016-10-25] MEDS: DOCUSATE SODIUM 50 MG/SENNA 8.6 MG TAB PO SCH ×2 (09:00→21:00)
[2016-10-25 09:25] LABS: BICARBONATE 23.6 MEQ/L (21.0-32.0); POTASSIUM 3.6 MEQ/L (3.5-5.1)
[2016-10-25] MEDS: LINEZOLID 600 MG TAB PO SCH ×2 (09:31→23:25)
[2016-10-25] MEDS: amLODIPine BESYLATE 5 MG TAB PO SCH (09:31)
[2016-10-25] MEDS: METOPROLOL SUCCINATE 25 MG EXTENDED RELEASE TAB PO SCH (09:31)
[2016-10-25] MEDS: ASPIRIN EC 81 MG TABEC PO SCH (09:31)
[2016-10-25] MEDS: FUROSEMIDE 20 MG/2 ML VIAL IV PUSH SCH ×2 (09:32→17:23)
[2016-10-25] MEDS: CALCITRIOL 0.25 MCG CAP PO SCH (09:32)
[2016-10-25] MEDS: COLLAGENASE OINT 30 GM TUBE TOPICAL SCH (09:35)
[2016-10-25 09:40] LABS: CALCIUM-PROTEIN CORRECTED 7.8 MG/DL (8.5-10.1)
--- NOTE | 2016-10-25 11:04 | HHI.PR ---
Subjective Remarks Follow-up for dyspnea and acute renal failure Patient had 1800 L of urine output yesterday and none was recorded last night. Per nurse he had 1600 more today. Also last night there was a mucous plug which was reason why no urine output was recorded. Patient stated that every time a Jean is placed he always has this problem with the mucous plug. Patient is asking to have his Jean changed every week. He stated that his abdominal pain has improved. Patient also stated that his breathing has improved. Dealt with patient's nurse at the bedside. Objective Vitals Vital Signs Date Time Temp Pulse Resp B/P Pulse Ox O2 Delivery O2 Flow Rate FiO2 10/25/16 08:00 97.4 72 18 165/87 96 10/25/16 04:00 97.6 65 20 185/82 96 10/25/16 03:32 Nasal Cannula 2.00 10/25/16 00:39 95 Nasal Cannula 2.00 10/25/16 00:00 97.3 68 22 177/83 95 10/24/16 20:00 97.3 70 22 181/88 94 10/24/16 20:00 57 10/24/16 16:00 96.9 67 20 189/89 95 10/24/16 12:00 96.8 62 20 157/81 94 I/O 10/24/16 10/24/16 10/24/16 10/25/16 10/25/16 10/25/16 07:00 15:00 23:00 07:00 15:00 23:00 Intake Total 910 ml 1440 ml 600 ml 240 ml Output Total 1350 ml 150 ml 2895 ml Balance -440 ml 1440 ml 450 ml -2655 ml Intake Oral 360 ml 1440 ml 600 ml 240 ml IV Total 550 ml Output Urine Total 1100 ml 150 ml 2895 ml Stool Total 250 ml Bladder Scan Volume Amount 999 ml Result Diagram: 10/25/1683310/25/1634 Objective Remarks GENERAL: Morbidly obese male, semi-recumbent in bed, in no acute distress HEENT: Normocephalic. Atraumatic. Pupils equal, round, reactive, conjugate. Mucous membranes are moist NECK: Trachea is midline. Large ford and large obese neck prevents the assessment of JVD CHEST: Clear to auscultation bilaterally. No dyspnea noted remains on 2 L nasal cannula. No accessory muscle use for breathing. CARDIOVASCULAR: Normal rate, regular rhythm. Sinus by telemetry ABDOMEN: Soft, morbidly obese, nontender, nondistended. No guarding. Multiple healed scars around the abdomen, including median scar. There is a colostomy bag that exits the left lower quadrant, with stool output. Dressing neobladder with Jean catheter C/D/I in the right lower quadrant, draining clear urine. MUSCULOSKELETAL: Radial Pulses 2+. Skin: left heel ulcerating with dressing in place. Medications and IVs Current Medications Sodium Bicarbonate 50 meq 50 meq ONCE ONCE IV PUSH Last administered on 15:34; Start 10/18/16 at 14:30; Stop 10/18/16 at 14:31; Status DC Sodium Bicarbonate/ Dextrose (Sodium Bicarbonate 8.4% Inj/D5W 1000 ml Inj) 1, 150 ml @ 150 mls/hr Q7H40M IV Last administered on 10/20/16 01:17; Start at 15:00; Stop 10/20/16 at 16:33; Status DC Dextrose (D50w (Vial) Inj) 25 ml UNSCH PRN IV PUSH HYPOGLYCEMIA-SEE COMMENTS; Start 10/18/16 at 14:30; Stop 10/19/16 at 10:29; Status DC Insulin Human Regular (NovoLIN R SUPPLEMENTAL SCALE) 1 ACHS AND 3AM SQ ; Start 10/18/16 at 16:00; Stop 10/19/16 at 10:34; Status DC Sodium Bicarbonate 150 meq 150 meq ONCE ONCE IV PUSH Last administered on 10/18 15:20; Start 10/18/16 at 14:45; Stop 10/18/16 at 14:46; Status DC Piperacillin Sod/ Tazobactam Sod (Zosyn 2.25 Gm Premix) 50 ml @ 100 mls/hr Q8H IV Last administered on 10/25/16 09:32; Start 10/18/16 at 17:00 Ondansetron HCl (Zofran Inj) 4 mg Q6H PRN IV NAUSEA OR VOMITING Last administered on 10/18/16 18:40; Start 10/18/16 at 16:30 Albuterol/ Ipratropium (Duoneb Neb) 1 ampule Q2HR NEB PRN INH WHEEZING Last administered on 10/25/16 00:37; Start 10/18/16 at 16:30 Heparin Sodium (Porcine) (Heparin Inj) 5,000 units Q12H SQ Last administered on 10/25/16 06:14; Start 10/18/16 at 18:00 Miscellaneous Information 1 Q361D XX Last administered on 10/18/16 16:30; Start 10/18/16 at 16:30 Chlorhexidine Gluconate (Chlorhexidine 2% Cloth) Taper DAILY@04 TOP Last administered on 10/20/16 04:00; Start 10/19/16 at 04:00; Stop 10/15/17 at 03:59 Chlorhexidine Gluconate (Chlorhexidine 2% Cloth) 3 pack UNSCH PRN TOP HYGIENIC CARE; Start 10/18/16 at 16:30 Senna/Docusate Sodium (Margarita-Colace) 1 tab BID PO Last administered on 22:05; Start 10/18/16 at 21:00 Calcium Acetate 1334 mg 1,334 mg TID PO Last administered on 10/21/16 09:56; Start 10/19/16 at 09:00; Stop 10/21/16 at 16:52; Status DC Calcium Gluconate/ Dextrose (Calcium Gluconate Inj/D5W 100 ml Inj) 120 ml @ 120 mls/hr ONCE ONCE IV Last administered on 10/19/16 00:54; Start 10/19/16 at 01:00; Stop 10/19/16 at 01:59; Status DC Sodium Bicarbonate (Sodium Bicarbonate 8.4% Inj) 50 meq STK-MED ONCE .ROUTE ; Start 10/19/16 at 05:42; Stop 10/19/16 at 05:43; Status DC Sodium Bicarbonate 100 meq 100 meq NOW ONCE IV PUSH Last administered on 05:51; Start 10/19/16 at 06:00; Stop 10/19/16 at 06:01; Status DC Potassium Chloride 100 ml @ 50 mls/hr Q2H IV Last administered on 10/19/16 13 :22; Start 10/19/16 at 10:00; Stop 10/19/16 at 13:59; Status DC Calcium Gluconate 2 gm/Sodium Chloride 120 ml @ 120 mls/hr ONCE ONCE IV Last administered on 10/19/16 10:13; Start 10/19/16 at 10:30; Stop 10/19/16 at 11:29 ; Status DC Magnesium Sulfate/ Dextrose 100 ml @ 100 mls/hr Q1H IV Last administered on 11:25; Start 10/19/16 at 10:00; Stop 10/19/16 at 11:59; Status DC Cefepime HCl 2000 mg/Sodium Chloride 100 ml @ 200 mls/hr Q8H IV ; Start at 11:00; Stop 10/19/16 at 11:00; Status DC Sodium Chloride (NS 500 ml Inj) 500 ml @ 500 mls/hr BOLUS ONCE IV Last administered on 10/19/16 10:15; Start 10/19/16 at 10:00; Stop 10/19/16 at 10:59 ; Status DC Dextrose (D50w (Syr) Inj) 50 ml UNSCH PRN IV HYPOGLYCEMIA-SEE COMMENTS; Start 10/19/16 at 10:30 Glucagon (Glucagon Inj) 1 mg UNSCH PRN OTHER HYPOGLYCEMIA-SEE COMMENTS; Start 10/19/16 at 10:00; Stop 10/24/16 at 09:55; Status DC Insulin Aspart (NovoLOG SUPPLEMENTAL SCALE) 1 ACHS SLIDING SCALE SQ Last administered on 10/20/16 21:06; Start 10/19/16 at 11:00 Aspirin 81 mg 81 mg DAILY PO Last administered on 10/25/16 09:31; Start at 10:30 Linezolid (Zyvox 600 Mg Premix) 300 ml @ 300 mls/hr Q12H IV Last administered on 10/22/16 11:56; Start 10/19/16 at 11:00; Stop 10/22/16 at 13:55; Status DC Potassium Bicarb/ Potassium Chloride 50 meq 50 meq NOW ONCE PO Last administered on 10/19/16 10:44; Start 10/19/16 at 10:45; Stop 10/19/16 at 10:46 ; Status DC Calcium Gluconate 2 gm/Sodium Chloride 120 ml @ 120 mls/hr NOW IV Last administered on 10/19/16 21:47; Start 10/19/16 at 21:45; Stop 10/19/16 at 22:44 ; Status DC Potassium Chloride 100 ml @ 50 mls/hr Q2H IV Last administered on 10/20/16 01 :19; Start 10/19/16 at 22:00; Stop 10/20/16 at 01:59; Status DC Calcium Gluconate 2 gm/Sodium Chloride 120 ml @ 120 mls/hr NOW ONCE IV Last administered on 10/20/16 10:27; Start 10/20/16 at 10:00; Stop 10/20/16 at 10:59 ; Status DC Sodium Chloride (NS 1000 ml Inj) 1,000 ml @ 100 mls/hr Q10H IV Last administered on 10/23/16 14:45; Start 10/20/16 at 16:45; Stop 10/24/16 at 09:55 ; Status DC Polyethylene Glycol (Miralax) 17 gm DAILY PO ; Start 10/20/16 at 20:00 Oxycodone HCl (Roxicodone) 10 mg Q6H PRN PO PAIN SCALE 7 TO 10 Last administered on 10/25/16 09:40; Start 10/21/16 at 10:15 Potassium Bicarb/ Potassium Chloride (K-Lyte Cl Eff) 50 meq NOW ONCE PO Last administered on 10/21/16 12:51; Start 10/21/16 at 13:00; Stop 10/21/16 at 13:01 ; Status DC Calcitriol (Rocaltrol) 0.5 mcg DAILY PO Last administered on 10/25/16 09:32; Start 10/21/16 at 17:00 Calcium Carbonate (Oscal) 1,000 mg Q8HR PO Last administered on 10/25/16 06:13 ; Start 10/21/16 at 22:00 Dofetilide (Tikosyn) 500 mcg BID PO ; Start 10/21/16 at 21:00; Stop 10/21/16 at 21:43; Status DC Potassium Chloride (KCl) 40 meq ONCE ONCE PO Last administered on 10/22/16 07 :22; Start 10/22/16 at 06:45; Stop 10/22/16 at 06:46; Status DC Calcium Gluconate 1 gm 1 gm ONCE ONCE IV PUSH ; Start 10/22/16 at 06:45; Stop 10/22/16 at 06:46; Status Cancel Calcium Gluconate/ Sodium Chloride (Calcium Gluconate Inj/NS Inj) 110 ml @ 220 mls/hr ONCE ONCE IV Last administered on 10/22/16 08:19; Start 10/22/16 at 07 :00; Stop 10/22/16 at 07:29; Status DC Hydralazine HCl (Apresoline) 50 mg Q8HR PO Last administered on 10/23/16 06:09 ; Start 10/22/16 at 12:45; Stop 10/23/16 at 11:12; Status DC Collagenase (Santyl Oint) 1 applic DAILY TOPICAL Last administered on 09:35; Start 10/22/16 at 12:45 Linezolid (Zyvox) 600 mg Q12HR PO Last administered on 10/25/16 09:31; Start 10/22/16 at 21:00 Hydralazine HCl (Apresoline) 100 mg Q8HR PO Last administered on 10/25/16 06: 13; Start 10/23/16 at 14:00 Amlodipine Besylate (Norvasc) 5 mg DAILY PO Last administered on 10/25/16 09: 31; Start 10/24/16 at 10:00 Metoprolol Succinate (Toprol Xl) 25 mg DAILY PO Last administered on 10/25/16 09:31; Start 10/24/16 at 10:00 Furosemide (Lasix Inj) 20 mg BID@09,18 IV PUSH Last administered on 10/25/16 09:32; Start 10/24/16 at 10:30 Albumin Human (Albumin 25% Inj) 25 gm Q12H IV Last administered on 10/25/16 06 :14; Start 10/24/16 at 18:45 A/P Assessment and Plan Acute respiratory failure -Initially it resolved but he is now symptomatic which is due to volume overloaded. -Patient given IV fluids with improvement. Continue with Lasix. Continue a strict ins and outs. Avoid nephrotoxins. Acute kidney injury-secondary to obstructive uropathy S/P left nephrectomy, cystectomy with neobladder -Jean place with improvement in symptoms. --Neobladder catheter draining -Urology following Dr. Shelton -Per Dr. Shelton to keep catheter in until his creatinines around his baseline 2. -Follow-up nephrology - Strict I/Os Hydronephrosis right kidney -Due to the above. Sepsis -Secondary to the above. Treated. Resolved. Hypertension H/O CABG, cardiac stent -Initially antihypertensive medication was held secondary to hypotension. Continue hydralazine. Will restart his metoprolol and amlodipine. Adjust accordingly. -Continue ASA 81 mg/day Chronic Left heel [id number] -Infectious disease following. -On Zosyn and PO Linezolid -Cultures growing proteus mirabilis, MRSA, group D enterococcus. -Wound care nurse consulted. UTI -Growing enterococcus faecalis, Klebsiella pneumonia ESBL positive, protease mirabilis -Patient on Zosyn and Zyvox. -Urine cultures and cultures grew negative derek and group D enterococcus. -Management per infectious disease. Right issue wound [id number] -stable S/P C5-C6 fusion, C7 discectomy -Stable. Prophylaxis: GI Prophylaxis DVT Prophylaxis -- SCDs Dealt with patient and his nurse extensively on medical management. Crystal Gallegos MD Oct 25, 2016 11:04
--- NOTE | 2016-10-25 15:46 | HHI.NPPN ---
Subjective History of Present Illness 61-year-old male with past medical history of paraplegia, history of partial small-bowel obstruction, hypertension, hyperlipidemia, ischemic heart disease, chronic kidney disease, arthritis, anemia, history of neobladder formation with neurogenic bladder, left nephrectomy who was admitted with complaint of shortness of breath. The patient mainly came with shortness of breath and he was found to be severely acidotic with a very low pH of 6.99 and bicarb was very low and very high BUN and creatinine. 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 His creatinine was 2.1-2.2 which was his baseline when he was admitted last month. Additional Remarks Patient is alert,complaining of back pain, no SOB. Review of Systems General Constitutional: Fatigue Respiratory Lungs: SOB Cardiovascular Cardiac: BAEZ Objective Data Data 10/24/16 10/25/16 19:00 07:00 Intake Total 1490 ml 840 ml Output Total 3045 ml Balance 1490 ml -2205 ml Intake Oral 1440 ml 840 ml IV Total 50 ml Output Urine Total 3045 ml Bladder Scan Volume Amount 999 ml Vital Signs Date Time Temp Pulse Resp B/P Pulse Ox O2 Delivery O2 Flow Rate FiO2 10/25/16 11:03 96 Nasal Cannula 2.00 10/25/16 09:15 Nasal Cannula 2.00 10/25/16 08:00 97.4 72 18 165/87 96 10/25/16 04:00 97.6 65 20 185/82 96 10/25/16 03:32 Nasal Cannula 2.00 10/25/16 00:39 95 Nasal Cannula 2.00 10/25/16 00:00 97.3 68 22 177/83 95 10/24/16 20:00 97.3 70 22 181/88 94 10/24/16 20:00 57 10/24/16 16:00 96.9 67 20 189/89 95 -: 10/25/16 0834 10/25/16 0834 Physical Exam General Appearance: Well Nourished, No Acute Distress, Comfortable Eyes Eye Exam: Pupils Equal Throat Throat Exam: Oral Mucosa Celebration & Moist Neck Neck Exam: Neck Supple Pulmonary Resp Exam: Breath Sounds Equal, No Distress, Decreased Bases Cardiology CV Exam: Regular, Normal Sinus Rhythm Gastrointestinal/Abdomen GI Exam: Soft, Non-Tender, Bowel Sounds Present Extremeties Extremities Exam: Trace Edema Neurologic Neuro Exam: Alert, Awake, Oriented Psychiatric Psych Exam: Appropriate Responses Assessment/Plan Assessment Summary: VIJAY/Acute Renal Failure, CKD Stage III Electrolyte Assessment: Hypocalcemia, Hypokalemia, Metabolic Acidosis Problem List: (1) Leukocytosis (2) Acidemia (3) Respiratory distress (4) Paraplegia (5) UTI (urinary tract infection) (6) CKD (chronic kidney disease), stage III (7) Acute renal failure Plan Patient has advance stage 3 chronic kidney disease, and develop VIJAY, with severe metabolic acidosis. Also has UTI and obstructive uropathy. Creatinine is slowly improving.Lasix was given due to edema Growing enterococcus faecalis, Klebsiella pneumonia ESBL positive, protease mirabilis Patient on Zosyn and Zyvox. added Albumin 25 gm q 12 as UOP now 4.8 L declining Cr Lasix 20 mg IV Q [address] Goldman Problem Qualifiers (1) UTI (urinary tract infection): Salas Dsouza MD Oct 25, 2016 15:46
[2016-10-26] VITALS (18 sets, daily range): BP systolic 144–172; BP diastolic 70–103; PULSE 70–79; RESP 18–22; TEMP 97.1–98; O2SAT 93–95
[2016-10-26] MEDS: CHLORHEXIDINE GLUCONATE 2 % 1 PACK (2 CLOTHS) TOP SCH (04:00)
[2016-10-26] MEDS: hydrALAZINE HCL 100 MG TAB PO SCH ×3 (05:37→21:32)
[2016-10-26] MEDS: CALCIUM CARBONATE 1.25 GM (CA 500 MG) TAB PO SCH ×3 (05:37→20:34)
[2016-10-26] MEDS: ALBUMIN HUMAN 25% 25 GM/100 ML BAGP IV SCH ×2 (05:38→18:45)
[2016-10-26] MEDS: HEPARIN SODIUM - SQ 10,000 UNITS/ML VIAL SQ SCH (05:38)
[2016-10-26] MEDS: INSULIN ASPART SUPPLEMENTAL SCALE SQ SCH ×2 (05:38→11:00)
[2016-10-26] MEDS: RESP: ALBUTEROL 2.5 MG/IPRATROPIUM 0.5 MG NEB (PRN) INH ×2 (05:50→21:03)
[2016-10-26 07:16] LABS: BICARBONATE 27.7 MEQ/L (21.0-32.0); POTASSIUM 3.4 MEQ/L (3.5-5.1)
[2016-10-26] MEDS: PIPERACIL-TAZO 2.25 GM PREMIX 50 ML IV SCH ×2 (09:00→18:43)
[2016-10-26] MEDS: METOPROLOL SUCCINATE 25 MG EXTENDED RELEASE TAB PO SCH (09:24)
[2016-10-26] MEDS: ASPIRIN EC 81 MG TABEC PO SCH (09:25)
[2016-10-26] MEDS: amLODIPine BESYLATE 5 MG TAB PO SCH (09:25)
[2016-10-26] MEDS: CALCITRIOL 0.25 MCG CAP PO SCH (09:25)
[2016-10-26] MEDS: DOCUSATE SODIUM 50 MG/SENNA 8.6 MG TAB PO SCH ×2 (09:25→20:34)
[2016-10-26] MEDS: LINEZOLID 600 MG TAB PO SCH ×2 (09:25→21:00)
[2016-10-26] MEDS: COLLAGENASE OINT 30 GM TUBE TOPICAL SCH (09:27)
[2016-10-26] MEDS: POLYETHYLENE GLYCOL 17 GM PKG PO SCH (09:29)
[2016-10-26] MEDS: FUROSEMIDE 20 MG/2 ML VIAL IV PUSH SCH ×2 (09:29→18:43)
[2016-10-26] MEDS ORDERED: POTASSIUM CHLORIDE 20 MEQ CONTROLLED RELEASE TAB PO ONE (12:30)
[2016-10-26] MEDS ORDERED: NITROGLYCERIN 0.4 MG SL 25 TABS/BTL SL ONE (12:30)
--- NOTE | 2016-10-26 13:08 | RADRPT ---
EXAM DATE/TIME: 10/26/2016 12:26 [facility] COMPARISON: CHEST SINGLE AP, October 18, 2016, 12:44. INDICATIONS : Chest pain. MEDICAL HISTORY : Cardiovascular disease. SURGICAL HISTORY : CABG. Fusion, cervical. ENCOUNTER: Subsequent ACUITY: 2 weeks PAIN SCORE: 6/10 LOCATION: Bilateral chest FINDINGS: Mediastinal wires are again noted. There is disruption of the first 2 median sternotomy wires. There is bibasilar airspace disease and hazy opacity in the right lung base which may reflect trace pleural effusion. Cardiac silhouette is enlarged. Remainder of exam is unchanged. CONCLUSION: 1. Cardia megaly with mild positive fluid balance. 2. Bibasilar airspace disease and questionable trace right pleural effusion. Jeremiah Caba MD on October 26, 2016 at 13:04 Board Certified Radiologist. This report was verified electronically.
--- NOTE | 2016-10-26 13:14 | HHI.PR ---
Subjective Patient symptoms today Pt seen and examined. No complaints at present time. Objective Vital Signs Vital Signs Date Time Temp Pulse Resp B/P Pulse Ox O2 Delivery O2 Flow Rate FiO2 10/26/16 09:37 76 10/26/16 09:35 79 10/26/16 08:00 97.2 74 19 155/76 93 10/26/16 08:00 Nasal Cannula 3.00 40 10/26/16 07:54 72 10/26/16 04:00 98.0 72 22 172/82 95 10/26/16 00:00 97.2 73 22 158/75 95 10/25/16 23:25 Nasal Cannula 3.00 10/25/16 21:21 95 Nasal Cannula 3.00 10/25/16 20:00 76 10/25/16 20:00 97.9 84 22 152/72 94 10/25/16 16:00 97.4 70 17 145/75 95 Intake & Output 10/26/16 10/26/16 07:00 19:00 Intake Total 750 ml Output Total 3550 ml Balance -2800 ml Intake Oral 600 ml IV Total 150 ml Output Urine Total 3400 ml Stool Total 150 ml Bladder Scan Volume Amount 999 ml Result Diagram: 10/25/16 0834 10/26/16 0500 Objective Remarks Abd:soft,nt,nd Healy in place and draining cloudy urine 10/20 Abd:soft,nt,nd Healy in place and draining cloudy urine 10/21 Abd:soft,nt,nd Healy draining clear urine 10/22 Abd:soft,nt,nd Healy draining clear urine 10/23 Abd:soft,nt,nd Healy draining clear urine 10/26 Abd:soft,nt,nd Healy draining clear urine Medications and IVs Current Medications Medications (Trade) Dose Ordered Sig/Yosi Route Start Time Stop Time Status Last Admin (Zosyn 2.25 Gm Premix) 50 ml @ 100 mls/hr Q8H IV 10/18/16 17:00 10/26/16 09:00 (Zofran Inj) 4 mg Q6H PRN IV 10/18/16 16:30 10/18/16 18:40 (Heparin Inj) 5,000 units Q12H SQ 10/18/16 18:00 10/25/16 17:22 Miscellaneous Information 1 Q361D XX 10/18/16 16:30 10/18/16 16:30 (Chlorhexidine 2% Cloth) Taper DAILY@04 TOP 10/19/16 04:00 10/15/17 03:59 10/20/16 04:00 (Chlorhexidine 2% Cloth) 3 pack UNSCH PRN TOP 10/18/16 16:30 (Margarita-Colace) 1 tab BID PO 10/18/16 21:00 10/26/16 09:25 (D50w (Syr) Inj) 50 ml UNSCH PRN IV 10/19/16 10:30 (Ecotrin Ec) 81 mg DAILY PO 10/19/16 10:30 10/26/16 09:25 (Miralax) 17 gm DAILY PO 10/20/16 20:00 10/26/16 09:29 (Rocaltrol) 0.5 mcg DAILY PO 10/21/16 17:00 10/26/16 09:25 (Oscal) 1,000 mg Q8HR PO 10/21/16 22:00 10/26/16 05:37 (Santyl Oint) 1 applic DAILY TOPICAL 10/22/16 12:45 10/26/16 09:27 (Zyvox) 600 mg Q12HR PO 10/22/16 21:00 10/26/16 09:25 (Apresoline) 100 mg Q8HR PO 10/23/16 14:00 10/26/16 05:37 (Norvasc) 5 mg DAILY PO 10/24/16 10:00 10/26/16 09:25 (Toprol Xl) 25 mg DAILY PO 10/24/16 10:00 10/26/16 09:24 (Lasix Inj) 20 mg BID@09,18 IV PUSH 10/24/16 10:30 10/26/16 09:29 (Albumin 25% Inj) 25 gm Q12H IV 10/24/16 18:45 10/26/16 05:38 (Roxicodone) 20 mg Q4HR PRN PO 10/25/16 16:00 10/26/16 05:37 Assessment and Plan Assessment and Plan 61 y.o male s/p cystoscopy of appendico with placement of healy catheter for 1200cc Check Ucx results Maintain healy catheter Continue ABX and supportive measures 10/20 61 y.o male s/p cystoscopy of appendico with placement of healy catheter for 1200cc with ARF/CRF Creatinine at 6 UCx with GNR's Continue ABX 10/21 61 y.o male s/p cystoscopy of appendico with placement of healy catheter for 1200cc with ARF/CRF Creatinine at 6.0 from yesterday; today's pending UCx sensitive to Zosyn Maintain catheter drainage. 10/22 61 y.o male s/p cystoscopy of appendico with placement of healy catheter for 1200cc with ARF/CRF Creatinine at 5.6 today UCx sensitive to Zosyn Maintain catheter drainage. 10/23 61 y.o male s/p cystoscopy of appendico with placement of healy catheter for 1200cc with ARF/CRF Creatinine at 5.1 today Maintain catheter drainage until creatinine baselines to 2 range 10/26 61 y.o male s/p cystoscopy of appendico with placement of healy catheter for 1200cc with ARF/CRF Creatinine at 3.74 today Maintain catheter and do not remove/change Irrigate Q shift to keep from clogging. Austyn Shelton DO Oct 26, 2016 13:14
[2016-10-26] MEDS: NITROGLYCERIN 2% OINT 1 GM PACKET TOPICAL SCH ×2 (14:27→20:34)
[2016-10-26] MEDS: MORPHINE SULFATE 4 MG/ML INJ IV PUSH PRN ×2 (14:35→20:38)
--- NOTE | 2016-10-26 14:35 | HHI.PR ---
Subjective Remarks Follow-up for acute renal failure secondary to obstructive uropathy and multiple infections. Patient complaining of chest pressure radiating to his shoulder. He stated that this was the same type of chest pressure when he had an heart attack in 2000 with CABG. Patient stated that chest pain has improved. He continues to have chest pressure. Patient also stated that his shortness of breathing has not improved. Dealt with patient's nurse. Objective Vitals Vital Signs Date Time Temp Pulse Resp B/P Pulse Ox O2 Delivery O2 Flow Rate FiO2 10/26/16 12:00 97.1 73 18 144/75 94 10/26/16 09:37 76 10/26/16 09:35 79 10/26/16 09:23 93 Nasal Cannula 3.00 10/26/16 08:00 97.2 74 19 155/76 93 10/26/16 08:00 Nasal Cannula 3.00 40 10/26/16 07:54 72 10/26/16 04:00 98.0 72 22 172/82 95 10/26/16 00:00 97.2 73 22 158/75 95 10/25/16 23:25 Nasal Cannula 3.00 10/25/16 21:21 95 Nasal Cannula 3.00 10/25/16 20:00 76 10/25/16 20:00 97.9 84 22 152/72 94 10/25/16 16:00 97.4 70 17 145/75 95 I/O 10/25/16 10/25/16 10/25/16 10/26/16 10/26/16 10/26/16 06:59 14:59 22:59 06:59 14:59 22:59 Intake Total 240 ml 490 ml 360 ml 390 ml Output Total 2895 ml 4800 ml 2750 ml 800 ml Balance -2655 ml -4310 ml -2390 ml -410 ml Intake Oral 240 ml 440 ml 360 ml 240 ml IV Total 50 ml 150 ml Output Urine Total 2895 ml 4800 ml 2600 ml 800 ml Stool Total 150 ml Bladder Scan Volume Amount 999 ml # Bowel Movements 1 Result Diagram: 10/25/16 0834 10/26/16 0500 Imaging Last Impressions Chest X-Ray 10/26/16 0000 Signed Impressions: Service Date/Time: Wednesday, October 26, 2016 12:26 - CONCLUSION: 1. Cardia megaly with mild positive fluid balance. 2. Bibasilar airspace disease and questionable trace right pleural effusion. Jeremiah Caba MD Foot X-Ray 10/23/16 0000 Signed Impressions: Service Date/Time: Sunday, October 23, 2016 17:13 - CONCLUSION: Chronic changes and no definite signs of osteomyelitis. Deborah Dean MD Renal Ultrasound 10/18/16 0000 Signed Impressions: Service Date/Time: Tuesday, October 18, 2016 15:27 - CONCLUSION: 1. Hydronephrosis of the right kidney. 2. Cystectomy with neobladder. Alok Upton MD Abdomen/Pelvis CT 10/18/16 0000 Signed Impressions: Service Date/Time: Tuesday, October 18, 2016 16:07 - CONCLUSION: 1. There is hydronephrosis of the right kidney similar to previous study with neobladder and ileostomy. 2. 3 mm nonobstructing right renal calculus. 3. Left nephrectomy. Alok Upton MD Objective Remarks GENERAL: Morbidly obese male, semi-recumbent in bed, in no acute distress HEENT: Normocephalic. Atraumatic. Pupils equal, round, reactive, conjugate. Mucous membranes are moist NECK: Trachea is midline. Large ford and large obese neck prevents the assessment of JVD CHEST: Clear to auscultation bilaterally. No dyspnea noted remains on 2 L nasal cannula. No accessory muscle use for breathing. CARDIOVASCULAR: Normal rate, regular rhythm. Sinus by telemetry ABDOMEN: Soft, morbidly obese, nontender, nondistended. No guarding. Multiple healed scars around the abdomen, including median scar. There is a colostomy bag that exits the left lower quadrant, with stool output. Dressing neobladder with Jean catheter C/D/I in the right lower quadrant, draining clear urine. MUSCULOSKELETAL: Radial Pulses 2+. Skin: left heel ulcerating with dressing in place. Medications and IVs Current Medications Sodium Bicarbonate 50 meq 50 meq ONCE ONCE IV PUSH Last administered on t 15:34; Start 10/18/16 at 14:30; Stop 10/18/16 at 14:31; Status DC Sodium Bicarbonate/ Dextrose (Sodium Bicarbonate 8.4% Inj/D5W 1000 ml Inj) 1, 150 ml @ 150 mls/hr Q7H40M IV Last administered on 10/20/16 01:17; Start at 15:00; Stop 10/20/16 at 16:33; Status DC Dextrose (D50w (Vial) Inj) 25 ml UNSCH PRN IV PUSH HYPOGLYCEMIA-SEE COMMENTS; Start 10/18/16 at 14:30; Stop 10/19/16 at 10:29; Status DC Insulin Human Regular (NovoLIN R SUPPLEMENTAL SCALE) 1 ACHS AND 3AM SQ ; Start 10/18/16 at 16:00; Stop 10/19/16 at 10:34; Status DC Sodium Bicarbonate 150 meq 150 meq ONCE ONCE IV PUSH Last administered on 10/18 15:20; Start 10/18/16 at 14:45; Stop 10/18/16 at 14:46; Status DC Piperacillin Sod/ Tazobactam Sod (Zosyn 2.25 Gm Premix) 50 ml @ 100 mls/hr Q8H IV Last administered on 10/26/16 09:00; Start 10/18/16 at 17:00 Ondansetron HCl (Zofran Inj) 4 mg Q6H PRN IV NAUSEA OR VOMITING Last administered on 10/18/16 18:40; Start 10/18/16 at 16:30 Albuterol/ Ipratropium (Duoneb Neb) 1 ampule Q2HR NEB PRN INH WHEEZING Last administered on 10/26/16 05:50; Start 10/18/16 at 16:30 Heparin Sodium (Porcine) (Heparin Inj) 5,000 units Q12H SQ Last administered on 10/25/16 17:22; Start 10/18/16 at 18:00; Stop 10/26/16 at 14:05; Status DC Miscellaneous Information 1 [id number] XX Last administered on 10/18/16 16:30; Start 10/18/16 at 16:30 Chlorhexidine Gluconate (Chlorhexidine 2% Cloth) Taper DAILY@04 TOP Last administered on 10/20/16 04:00; Start 10/19/16 at 04:00; Stop 10/15/17 at 03:59 Chlorhexidine Gluconate (Chlorhexidine 2% Cloth) 3 pack UNSCH PRN TOP HYGIENIC CARE; Start 10/18/16 at 16:30 Senna/Docusate Sodium (Margarita-Colace) 1 tab BID PO Last administered on 09:25; Start 10/18/16 at 21:00 Calcium Acetate 1334 mg 1,334 mg TID PO Last administered on 10/21/16 09:56; Start 10/19/16 at 09:00; Stop 10/21/16 at 16:52; Status DC Calcium Gluconate/ Dextrose (Calcium Gluconate Inj/D5W 100 ml Inj) 120 ml @ 120 mls/hr ONCE ONCE IV Last administered on 10/19/16 00:54; Start 10/19/16 at 01:00; Stop 10/19/16 at 01:59; Status DC Sodium Bicarbonate (Sodium Bicarbonate 8.4% Inj) 50 meq STK-MED ONCE .ROUTE ; Start 10/19/16 at 05:42; Stop 10/19/16 at 05:43; Status DC Sodium Bicarbonate 100 meq 100 meq NOW ONCE IV PUSH Last administered on 05:51; Start 10/19/16 at 06:00; Stop 10/19/16 at 06:01; Status DC Potassium Chloride 100 ml @ 50 mls/hr Q2H IV Last administered on 10/19/16 13 :22; Start 10/19/16 at 10:00; Stop 10/19/16 at 13:59; Status DC Calcium Gluconate 2 gm/Sodium Chloride 120 ml @ 120 mls/hr ONCE ONCE IV Last administered on 10/19/16 10:13; Start 10/19/16 at 10:30; Stop 10/19/16 at 11:29 ; Status DC Magnesium Sulfate/ Dextrose 100 ml @ 100 mls/hr Q1H IV Last administered on 11:25; Start 10/19/16 at 10:00; Stop 10/19/16 at 11:59; Status DC Cefepime HCl 2000 mg/Sodium Chloride 100 ml @ 200 mls/hr Q8H IV ; Start at 11:00; Stop 10/19/16 at 11:00; Status DC Sodium Chloride (NS 500 ml Inj) 500 ml @ 500 mls/hr BOLUS ONCE IV Last administered on 10/19/16 10:15; Start 10/19/16 at 10:00; Stop 10/19/16 at 10:59 ; Status DC Dextrose (D50w (Syr) Inj) 50 ml UNSCH PRN IV HYPOGLYCEMIA-SEE COMMENTS; Start 10/19/16 at 10:30 Glucagon (Glucagon Inj) 1 mg UNSCH PRN OTHER HYPOGLYCEMIA-SEE COMMENTS; Start 10/19/16 at 10:00; Stop 10/24/16 at 09:55; Status DC Insulin Aspart (NovoLOG SUPPLEMENTAL SCALE) 1 ACHS SLIDING SCALE SQ Last administered on 10/20/16 21:06; Start 10/19/16 at 11:00 Aspirin 81 mg 81 mg DAILY PO Last administered on 10/26/16 09:25; Start at 10:30 Linezolid (Zyvox 600 Mg Premix) 300 ml @ 300 mls/hr Q12H IV Last administered on 10/22/16 11:56; Start 10/19/16 at 11:00; Stop 10/22/16 at 13:55; Status DC Potassium Bicarb/ Potassium Chloride 50 meq 50 meq NOW ONCE PO Last administered on 10/19/16 10:44; Start 10/19/16 at 10:45; Stop 10/19/16 at 10:46 ; Status DC Calcium Gluconate 2 gm/Sodium Chloride 120 ml @ 120 mls/hr NOW IV Last administered on 10/19/16 21:47; Start 10/19/16 at 21:45; Stop 10/19/16 at 22:44 ; Status DC Potassium Chloride 100 ml @ 50 mls/hr Q2H IV Last administered on 10/20/16 01 :19; Start 10/19/16 at 22:00; Stop 10/20/16 at 01:59; Status DC Calcium Gluconate 2 gm/Sodium Chloride 120 ml @ 120 mls/hr NOW ONCE IV Last administered on 10/20/16 10:27; Start 10/20/16 at 10:00; Stop 10/20/16 at 10:59 ; Status DC Sodium Chloride (NS 1000 ml Inj) 1,000 ml @ 100 mls/hr Q10H IV Last administered on 10/23/16 14:45; Start 10/20/16 at 16:45; Stop 10/24/16 at 09:55 ; Status DC Polyethylene Glycol (Miralax) 17 gm DAILY PO Last administered on 10/26/16 09: 29; Start 10/20/16 at 20:00 Oxycodone HCl (Roxicodone) 10 mg Q6H PRN PO PAIN SCALE 7 TO 10 Last administered on 10/25/16 09:40; Start 10/21/16 at 10:15; Stop 10/25/16 at 15:33 ; Status DC Potassium Bicarb/ Potassium Chloride (K-Lyte Cl Eff) 50 meq NOW ONCE PO Last administered on 10/21/16 12:51; Start 10/21/16 at 13:00; Stop 10/21/16 at 13:01 ; Status DC Calcitriol (Rocaltrol) 0.5 mcg DAILY PO Last administered on 10/26/16 09:25; Start 10/21/16 at 17:00 Calcium Carbonate (Oscal) 1,000 mg Q8HR PO Last administered on 10/26/16 14:17 ; Start 10/21/16 at 22:00 Dofetilide (Tikosyn) 500 mcg BID PO ; Start 10/21/16 at 21:00; Stop 10/21/16 at 21:43; Status DC Potassium Chloride (KCl) 40 meq ONCE ONCE PO Last administered on 10/22/16 07 :22; Start 10/22/16 at 06:45; Stop 10/22/16 at 06:46; Status DC Calcium Gluconate 1 gm 1 gm ONCE ONCE IV PUSH ; Start 10/22/16 at 06:45; Stop 10/22/16 at 06:46; Status Cancel Calcium Gluconate/ Sodium Chloride (Calcium Gluconate Inj/NS Inj) 110 ml @ 220 mls/hr ONCE ONCE IV Last administered on 10/22/16 08:19; Start 10/22/16 at 07 :00; Stop 10/22/16 at 07:29; Status DC Hydralazine HCl (Apresoline) 50 mg Q8HR PO Last administered on 10/23/16 06:09 ; Start 10/22/16 at 12:45; Stop 10/23/16 at 11:12; Status DC Collagenase (Santyl Oint) 1 applic DAILY TOPICAL Last administered on 09:27; Start 10/22/16 at 12:45 Linezolid (Zyvox) 600 mg Q12HR PO Last administered on 10/26/16 09:25; Start 10/22/16 at 21:00 Hydralazine HCl (Apresoline) 100 mg Q8HR PO Last administered on 10/26/16 14: 18; Start 10/23/16 at 14:00 Amlodipine Besylate (Norvasc) 5 mg DAILY PO Last administered on 10/26/16 09: 25; Start 10/24/16 at 10:00 Metoprolol Succinate (Toprol Xl) 25 mg DAILY PO Last administered on 10/26/16 09:24; Start 10/24/16 at 10:00 Furosemide (Lasix Inj) 20 mg BID@09,18 IV PUSH Last administered on 10/26/16 09:29; Start 10/24/16 at 10:30 Albumin Human (Albumin 25% Inj) 25 gm Q12H IV Last administered on 10/26/16 05 :38; Start 10/24/16 at 18:45 Oxycodone HCl (Roxicodone) 20 mg Q4HR PRN PO PAIN SCALE 7 TO 10 Last administered on 10/26/16 05:37; Start 10/25/16 at 16:00 Nitroglycerin (Nitrostat Sl) 0.4 mg ONCE ONCE SL Last administered on 14:27; Start 10/26/16 at 12:30; Stop 10/26/16 at 12:31; Status DC Potassium Chloride (KCl) 20 meq ONCE ONCE PO Last administered on 10/26/16 14 :17; Start 10/26/16 at 12:30; Stop 10/26/16 at 12:31; Status DC Nitroglycerin 0.5 inch 0.5 inch Q6H TOPICAL Last administered on 10/26/16 14: 27; Start 10/26/16 at 15:00 Heparin Sodium/ Dextrose (Heparin-D5W Inj) 250 ml @ 0 mls/hr TITRATE IV ; Start 10/26/16 at 14:15 Morphine Sulfate (Morphine Inj) 2 mg Q3H PRN IV PUSH chest pain; Start at 14:30 A/P Assessment and Plan NSTEMI -Similar chest pain from his prior NE. Previously saw Dr. Coelho but has not seen him for many years. -Stat EKG was done which shows some ST wave changes. Stat troponin elevated at 2.5. Patient on metoprolol, aspirin. -Will start heparin drip. Give patient nitroglycerin and morphine for chest pain. Dealt with patient's nurse patient must be chest pain-free. -Consulted Dr. Chung. d/w him over the phone. Acute respiratory failure -Initially it resolved but he is now symptomatic which is due to volume overloaded. -Patient on IV Lasix. Continue a strict ins and outs. Avoid nephrotoxins. -Chest x-ray done today showed cardiomegaly with mild positive fluid balance and bibasilar airspace disease and questionable trace right pleural effusion. -Continue with IV Lasix. Acute kidney injury-secondary to obstructive uropathy S/P left nephrectomy, cystectomy with neobladder -Jean place with improvement in symptoms. --Neobladder catheter draining -Urology following Dr. Shelton -Per Dr. Shelton to keep catheter in until his creatinines around his baseline 2. -Follow-up nephrology - Strict I/Os Hydronephrosis right kidney -Due to the above. Sepsis -Secondary to the above. Treated. Resolved. Hypertension H/O CABG, cardiac stent -Initially antihypertensive medication was held secondary to hypotension. Continue hydralazine. Continue metoprolol and amlodipine. Adjust accordingly. -Continue ASA 81 mg/day Chronic Left heel [id number] -Infectious disease following. -On Zosyn and PO Linezolid -Cultures growing proteus mirabilis, MRSA, group D enterococcus. -Wound care nurse consulted. UTI -Growing enterococcus faecalis, Klebsiella pneumonia ESBL positive, protease mirabilis -Patient on Zosyn and Zyvox. -Urine cultures and cultures grew negative derek and group D enterococcus. -Management per infectious disease. Right issue wound [id number] -stable S/P C5-C6 fusion, C7 discectomy -Stable. Prophylaxis: GI Prophylaxis DVT Prophylaxis -- SCDs Dealt with patient and his nurse extensively on medical management. Discharge Planning Due to NSTEMI patient will need to be transferred to the [facility] since he will be on heparin drip. Crystal Gallegos MD Oct 26, 2016 14:35
--- NOTE | 2016-10-26 14:49 | HHI.IDPN ---
Subjective Subjective Remarks Patient is a 61-year-old male, percent to the hospital complaining of 2 day history of worsening shortness of breath. Patient is paraplegic and states mostly in his motorized wheelchair. He has not been having any cough. He has complicated history in that he has had multiple surgeries. He had left nephrectomy for a calcified kidney possibly related to chronic infection. He also had an ileal conduit as a young patient and it eventually created problem and he subsequently underwent placement of a [place] pouch. He had appendicovesicostomy done and self catheterize himself. Patient stated that he has not been able to catheterize himself over the last 2 days. There's been no fever or chills. He denies any congestion or any significant cough or sputum production. Patient also has chronic decubitus because of his bedridden state. On presentation patient had leukocytosis. He has significant acidosis and very high creatinine. Imaging study showed evidence of right hydronephrosis. Healy catheter insertion was tried but was not successful, and urology was consult. He was also unable to place it, so the patient went to the operating room and had cystoscopy and placement of the Healy catheter under anesthesia. Patient's WBC was quite high, and that has improved. His creatinine is still elevated but slightly better compared to what it was on admission. He has urine output which seems adequate. Renal is following the patient. Patient also has multiple decubitus ulcers including the left heel and in the buttock area. Urine culture is growing Proteus, Klebsiella ESBL positive, and Enterococcus faecalis. Wound culture on the left heel which is all the way to the bone has Proteus, second gram-negative ivan, and staph species. Notes reviewed Temps ok C/O SOB and CP earlier Some improvement CXR with CHF Repeat CXR with CHF Good UO Creatinine improving WBC down to normal Podiatry notes reviewed Antibiotics Zosyn Zyvox Past Medical History Anemia, unknown etiology Spina bifida Arthritis Hyperlipidemia Coronary artery disease Hypertension Paraplegia Chronic renal insufficiency, unknown stage Past Surgical History Neobladder reconstruction, "[place] pouch " Appendectomy Ivan in left femur Band around pelvis and hip Coronary artery bypass grafting Cholecystectomy Coronary artery stent Appendicovesicostomy Colostomy Left nephrectomy Tonsillectomy C5 6 fusion C7 discectomy Allergies: Coded Allergies: Compazine (Verified Allergy, Severe, MUSCLE CONTRACTURES, 08/29/16) Contrast Media (Verified Allergy, Severe, Anaphylaxis, 08/29/16) Thorazine (Verified Allergy, Severe, MUSCLE CONTRACTURES, 08/29/16) *MDRO Multi-Drug Resistant Organism (Verified Adverse Reaction, Unknown, MRSA, 10/23/16) 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 & 10/20/16 ESBL-KL PN- (urine) 10/18/16, MRSA (heel) 10/19/16 Objective . Vital Signs Date Time Temp Pulse Resp B/P Pulse Ox O2 Delivery O2 Flow Rate FiO2 10/26/16 12:00 97.1 73 18 144/75 94 10/26/16 09:37 76 10/26/16 09:35 79 10/26/16 09:23 93 Nasal Cannula 3.00 10/26/16 08:00 97.2 74 19 155/76 93 10/26/16 08:00 Nasal Cannula 3.00 40 10/26/16 07:54 72 10/26/16 04:00 98.0 72 22 172/82 95 10/26/16 00:00 97.2 73 22 158/75 95 10/25/16 23:25 Nasal Cannula 3.00 10/25/16 21:21 95 Nasal Cannula 3.00 10/25/16 20:00 76 10/25/16 20:00 97.9 84 22 152/72 94 10/25/16 16:00 97.4 70 17 145/75 95 10/25/16 10/25/16 10/26/16 15:00 23:00 07:00 Intake Total 490 ml 360 ml 390 ml Output Total 4800 ml 2750 ml 800 ml Balance -4310 ml -2390 ml -410 ml Intake Oral 440 ml 360 ml 240 ml IV Total 50 ml 150 ml Output Urine Total 4800 ml 2600 ml 800 ml Stool Total 150 ml # Bowel Movements 1 . Laboratory Tests Test 10/25/16 08:34 White Blood Count 7.8 TH/MM3 Red Blood Count 3.14 MIL/MM3 Hemoglobin 8.0 GM/DL Hematocrit 25.4 % Mean Corpuscular Volume 81.0 FL Mean Corpuscular Hemoglobin 25.6 PG Mean Corpuscular Hemoglobin 31.7 % Concent Red Cell Distribution Width 20.1 % Platelet Count 155 TH/MM3 Mean Platelet Volume 7.0 FL Laboratory Tests Test 10/25/16 10/26/16 10/26/16 08:34 05:00 12:44 Sodium Level 146 MEQ/L 147 MEQ/L Potassium Level 3.6 MEQ/L 3.4 MEQ/L Chloride Level 112 MEQ/L 110 MEQ/L Carbon Dioxide Level 23.6 MEQ/L 27.7 MEQ/L Anion Gap 10 MEQ/L 9 MEQ/L Blood Urea Nitrogen 51 MG/DL 45 MG/DL Creatinine 4.03 MG/DL 3.74 MG/DL Estimat Glomerular Filtration 15 ML/MIN 17 ML/MIN Rate Random Glucose 91 MG/DL 87 MG/DL Calcium Level 7.3 MG/DL 7.3 MG/DL Protein Corrected Calcium 7.8 MG/DL Phosphorus Level 4.6 MG/DL 4.4 MG/DL Total Protein 6.1 GM/DL Albumin 2.7 GM/DL Troponin I 2.58 NG/ML B-Type Natriuretic Peptide 1352 PG/ML Imaging Renal Ultrasound 10/18/16 0000 Signed Impressions: Service Date/Time: Tuesday, October 18, 2016 15:27 - CONCLUSION: 1. Hydronephrosis of the right kidney. 2. Cystectomy with neobladder. Alok Upton MD Chest X-Ray 10/18/16 0000 Signed Impressions: Service Date/Time: Tuesday, October 18, 2016 12:44 - CONCLUSION: Possible mild bibasilar atelectasis. Deborah Dean MD Abdomen/Pelvis CT 10/18/16 0000 Signed Impressions: Service Date/Time: Tuesday, October 18, 2016 16:07 - CONCLUSION: 1. There is hydronephrosis of the right kidney similar to previous study with neobladder and ileostomy. 2. 3 mm nonobstructing right renal calculus. 3. Left nephrectomy. Alok Upton MD Physical Exam GENERAL: awake and alert, not in respiratory distress. SKIN: Warm and dry. No generalized rash HEAD: Atraumatic. Normocephalic. No temporal wasting, or tenderness. EYES: Rendon conjunctiva. No petechia or hemorrhage. Pupils equal, round and reactive to light. Extraocular movements full and intact. No scleral icterus. EARS, NOSE AND THROAT: Nose without bleeding or purulent nasal discharge. Mucous membranes pink and moist. No oral lesions noted. NECK: Trachea midline. Supple and not tender, no meningeal signs CARDIOVASCULAR: Regular rate and rhythm. No murmurs, rubs or gallops heard RESPIRATORY: Breath sounds equal bilaterally. No rales, wheezing or rhonchi. Decreased at bases ABDOMEN: Soft, obese, multiple scars noted. Has colostomy on L with some stool. Healy in RLQ into his neobladder. Bowel sounds present and normoactive. No guarding. No rebound. EXTREMITIES: No clubbing, cyanosis. S/P amputation on his RLE, ?[place], well healed stump. L heel with ulcer, with necrotic tissue in 1/3 of open wound , no odor. Decreasing edema BLE NEUROLOGICAL: Awake and alert. Cranial nerves grossly intact. Good strength in his UE. NO movement in BLE BACK: Multiple dressings in place over wounds, not very deep PSYCHIATRIC: Normal affect, calm and cooperative. LINE: No evidence of infection : Has healy in his neobladder Assessment & Plan Remarks IMPRESSION Urosepsis due to obstruction, and inability to do self cath, with R hydro on imaging - UC Proteus, Kleb ESBL and Enterococcus - repeat UC better CKD, creatinine still high Paraplegia Hx spina bifida Decubitus L Heel, (+) polymicrobial RECOMMENDATION Follow C/S - repeat UC Continue Zosyn and Zyvox Wound care Monitor progress If patient to get D/C: will use Augmentin 500 BID and Bactrim SS BID and give 10 days on D/C D/W Vira Read MD Oct 26, 2016 14:49
[2016-10-26 16:31] LABS: HEMATOCRIT 26.9 % (39.0-51.0); MEAN CORPUSCULAR HEMOGLOBIN 24.6 PG (27.0-34.0); MEAN CORPUSCULAR HGB CONC 30.4 % (32.0-36.0); PLATELET COUNT 163 TH/MM3 (150-450); RED BLOOD COUNT 3.32 MIL/MM3 (4.50-5.90); RED CELL DISTRIBUTION WIDTH 20.5 % (11.6-17.2); REVIEW FLAG FINAL; WHITE BLOOD COUNT 9.1 TH/MM3 (4.0-11.0)
[2016-10-26 16:45] LABS: APTT (PATIENT) 28.8 SEC (24.3-30.1); INTERNATIONAL NORMALIZED RATIO 1.1 RATIO; PROTHROMBIN TIME - PATIENT 12.6 SEC (9.8-11.6)
--- NOTE | 2016-10-26 18:11 | HHI.NPPN ---
Subjective History of Present Illness 61-year-old male with past medical history of paraplegia, history of partial small-bowel obstruction, hypertension, hyperlipidemia, ischemic heart disease, chronic kidney disease, arthritis, anemia, history of neobladder formation with neurogenic bladder, left nephrectomy who was admitted with complaint of shortness of breath. The patient mainly came with shortness of breath and he was found to be severely acidotic with a very low pH of 6.99 and bicarb was very low and very high BUN and creatinine. The patient previously has a history of chronic kidney disease, although is not following with any daycare manager. His creatinine was 2.1-2.2 which was his baseline when he was admitted last month. Additional Remarks Patient is alert, no more chest pain, has mild SOB. Review of Systems General Constitutional: Fatigue Respiratory Lungs: SOB Cardiovascular Cardiac: BAEZ Objective Data Data 10/25/16 10/26/16 18:59 06:59 Intake Total 490 ml 750 ml Output Total 4800 ml 3550 ml Balance -4310 ml -2800 ml Intake Oral 440 ml 600 ml IV Total 50 ml 150 ml Output Urine Total 4800 ml 3400 ml Stool Total 150 ml # Bowel Movements 1 Vital Signs Date Time Temp Pulse Resp B/P Pulse Ox O2 Delivery O2 Flow Rate FiO2 10/26/16 12:00 97.1 73 18 144/75 94 10/26/16 09:37 76 10/26/16 09:35 79 10/26/16 09:23 93 Nasal Cannula 3.00 10/26/16 08:00 97.2 74 19 155/76 93 10/26/16 08:00 Nasal Cannula 3.00 40 10/26/16 07:54 72 10/26/16 04:00 98.0 72 22 172/82 95 10/26/16 00:00 97.2 73 22 158/75 95 10/25/16 23:25 Nasal Cannula 3.00 10/25/16 21:21 95 Nasal Cannula 3.00 10/25/16 20:00 76 10/25/16 20:00 97.9 84 22 152/72 94 -: 10/26/16 1522 10/26/16 0500 Physical Exam General Appearance: Well Nourished, No Acute Distress, Comfortable Eyes Eye Exam: Pupils Equal Throat Throat Exam: Oral Mucosa [place] & Moist Neck Neck Exam: Neck Supple Pulmonary Resp Exam: Breath Sounds Equal, No Distress, Decreased Bases Cardiology CV Exam: Regular, Normal Sinus Rhythm Gastrointestinal/Abdomen GI Exam: Soft, Non-Tender, Bowel Sounds Present Extremeties Extremities Exam: Trace Edema Neurologic Neuro Exam: Alert, Awake, Oriented Psychiatric Psych Exam: Appropriate Responses Assessment/Plan Assessment Summary: VIJAY/Acute Renal Failure, CKD Stage III Electrolyte Assessment: Hypocalcemia, Hypokalemia, Metabolic Acidosis Problem List: (1) Leukocytosis (2) Acidemia (3) Respiratory distress (4) Paraplegia (5) UTI (urinary tract infection) (6) CKD (chronic kidney disease), stage III (7) Acute renal failure Plan Patient has advance stage 3 chronic kidney disease, and develop VIJAY, with severe metabolic acidosis. Also has UTI and obstructive uropathy. Creatinine is slowly improving.Lasix was given due to edema Growing enterococcus faecalis, Klebsiella pneumonia ESBL positive, protease mirabilis Patient on Zosyn and Zyvox. added Albumin 25 gm q 12 as UOP now 4.8 L declining Cr Lasix 20 mg IV Q 12 Now has increase Trop I. Started on IV Heparin. Further rec. as per cardiology. Problem Qualifiers (1) UTI (urinary tract infection): Lynsey Goldman MD Oct 26, 2016 18:11
[2016-10-26] MEDS: HEPARIN-D5W INJ 250 ML IV SCH (19:07)
[2016-10-26 21:29] LABS: APTT (PATIENT) 33.1 SEC (24.3-30.1)
[2016-10-26] MEDS: ATORVASTATIN 40 MG TAB PO SCH (23:15)
[2016-10-27] VITALS (22 sets, daily range): BP systolic 158–176; BP diastolic 94–98; PULSE 62–86; RESP 18–20; TEMP 97.4–99; O2SAT 93–96
[2016-10-27] MEDS: PIPERACIL-TAZO 2.25 GM PREMIX 50 ML IV SCH ×3 (00:57→15:58)
[2016-10-27 00:58] LABS: BICARBONATE 27.1 MEQ/L (21.0-32.0); POTASSIUM 3.4 MEQ/L (3.5-5.1)
[2016-10-27 01:02] LABS: INDIRECT BILIRUBIN 0.3 MG/DL (0.0-0.8); TOTAL BILIRUBIN ADULT 0.4 MG/DL (0.2-1.0)
[2016-10-27] MEDS: CHLORHEXIDINE GLUCONATE 2 % 1 PACK (2 CLOTHS) TOP SCH (02:36)
[2016-10-27] MEDS: NITROGLYCERIN 2% OINT 1 GM PACKET TOPICAL SCH ×4 (03:00→21:00)
[2016-10-27] MEDS: MORPHINE SULFATE 4 MG/ML INJ IV PUSH PRN (03:46)
[2016-10-27] MEDS: hydrALAZINE HCL 100 MG TAB PO SCH ×3 (04:27→21:32)
[2016-10-27] MEDS: CALCIUM CARBONATE 1.25 GM (CA 500 MG) TAB PO SCH ×3 (06:00→21:32)
--- NOTE | 2016-10-27 06:06 | MB ---
cc: RICKI REMY DO DATE OF CONSULTATION October 26, 2016 REASON FOR CARDIOLOGY CONSULTATION Elevated troponin. HISTORY OF PRESENT ILLNESS Primitivo Landaverde is a pleasant 61-year-old male who originally presented to [facility] on October 18, 2016, due to shortness of breath. During his workup he was found to have acute kidney injury with renal failure on chronic kidney disease. Since then has kidney function has slowly been getting better although his baseline is around 2.1 to 2.2 and he is currently at 3.74. He has also had a decubitus ulcer of his left heel which has grown multiple species of bacteria. This morning he states that he had some chest pressure radiating to his shoulders. It is similar to a chest pressure he had when he had a heart attack in 2000 and had coronary artery bypass grafting. He was given nitroglycerin and states that his chest pain has gone away. I was asked to see him due to his elevated troponins as well as his chest pain. PAST MEDICAL HISTORY 1. Anemia of unknown etiology. 2. Arthritis. 3. Hyperlipidemia. 4. Coronary artery disease. 5. Hypertension. 6. Paraplegia. 7. Chronic renal insufficiency with a baseline creatinine of 2.1 to 2.2. PAST SURGICAL HISTORY 1. Coronary artery bypass grafting x 2 (2000 at [facility]) with unknown coronary anatomy. 2. Neobladder reconstruction ([facility]). 3. Appendectomy. 4. Ivan in left femur. 5. Cholecystectomy. 6. Previous coronary artery stent. 7. Urinary diversion. 8. Left nephrectomy. 9. Tonsillectomy. 10. C5-6 fusion. 11. C7 diskectomy. ALLERGIES COMPAZINE. CONTRAST. THORAZINE. MEDICATIONS 1. Zofran 4 mg sublingual every 8 hours as needed for nausea. 2. Toprol XL 25 mg daily. 3. Norvasc 5 mg daily. 4. Hydralazine 100 mg t.i.d. 5. Iron 325 mg t.i.d. 6. Aspirin 81 mg daily. 7. Oxycodone 30 mg every 4 hours as needed for pain. 8. Protonix 40 mg daily. 9. Ascorbic acid 1000 mg daily. 10. Calcitriol 0.25 mcg daily. FAMILY HISTORY Denies premature coronary artery disease or sudden cardiac within the family. SOCIAL HISTORY Denies tobacco, alcohol or drug abuse. REVIEW OF SYSTEMS 14-systems were reviewed including osteopathic pertinent positives and negatives above, otherwise negative. PHYSICAL EXAMINATION VITAL SIGNS: Temperature 97.1, heart rate 73, blood pressure 144/75, respirations 18, pulse ox 94% on 3 liters. IN GENERAL: The patient appears well, in no acute distress, alert, awake and oriented x 3. Extraocular muscles intact. Mucous membranes moist. NECK: Supple. No JVD at 45 degrees. No carotid bruits heard bilaterally. HEART: Regular rate and rhythm. Positive first and second heart sounds with no murmurs, gallops or rubs. LUNGS: Decreased breath sounds bilaterally but no overt wheezes, rales or rhonchi. CHEST: Well-healed sternotomy. ABDOMEN: Soft, obese, nontender. Left lower quadrant has a colostomy bag. Noted Jean catheter. EXTREMITIES: 1+ pitting edema bilaterally. NEUROLOGICALLY: Cranial nerves II-XII grossly intact. SKIN: Warm, dry and intact. LABORATORY FINDINGS Hemoglobin 8.2, hematocrit 26.9, platelets 163. Potassium 3.4, BUN 45, creatinine 3.74. Troponin 2.58. ELECTROCARDIOGRAM (October 26, 2016 at 11:56) Sinus rhythm at 70 beats per minute, nonspecific ST-T wave changes. No significant change from September 08, 2016. IMPRESSIONS 1. Chest pain concerning for coronary insufficiency. 2. NSTEMI. 3. History of coronary artery disease with a history of CABG x 2 with unknown coronary anatomy. 4. Acute kidney injury on chronic kidney disease. 5. History of hypertension. 6. Chronic left heel ulcer. RECOMMENDATIONS 1. Mr. Landaverde appears to have had chest pain concerning for coronary insufficiency as well as an elevation of his troponins. His EKG shows no acute ST-T wave changes. 2. I agree with moving him to [facility] for further cardiological monitoring. He will continue on aspirin, metoprolol therapy. He will be placed on a heparin drip. He will also be given statin therapy. 3. We will continue to follow his troponin levels to see if they go up or down to help us determine the best management for Mr. Landavrede. 4. He will be left n.p.o. after midnight for possible ischemic evaluation in the morning. 5. I discussed with him that cardiac catheterization has a high chance of leading him towards hemodialysis and he understands. 6. If he does go for cardiac catheterization, he will need to be prepped for his ALLERGY TO CONTRAST. Most likely we would plan on a diagnostic cardiac catheterization and then allow his kidneys to rest for 24-48 hours before repeat catheterization if anything needed to be fixed. 7. We will check a 2-D echo to look at his overall left ventricular function, cardiac structure and possible valvopathies. 8. Further recommendations will be made based on the hospital course. Thank you for allowing me to see Primitivo Landaverde. If there are any questions, please do not hesitate to call. Ricki Remy DO VGP/SSB /5:17 PM /5:49 AM
[2016-10-27] MEDS: ALBUMIN HUMAN 25% 25 GM/100 ML BAGP IV SCH ×2 (06:30→17:21)
[2016-10-27 06:42] LABS: HEMATOCRIT 27.5 % (39.0-51.0); MEAN CORPUSCULAR HEMOGLOBIN 25.4 PG (27.0-34.0); MEAN CORPUSCULAR HGB CONC 31.3 % (32.0-36.0); PLATELET COUNT 143 TH/MM3 (150-450); RED BLOOD COUNT 3.39 MIL/MM3 (4.50-5.90); RED CELL DISTRIBUTION WIDTH 20.5 % (11.6-17.2); REVIEW FLAG FINAL; WHITE BLOOD COUNT 8.3 TH/MM3 (4.0-11.0)
[2016-10-27 07:09] LABS: APTT (PATIENT) 30.9 SEC (24.3-30.1)
--- NOTE | 2016-10-27 08:36 | HHI.PR ---
Subjective Remarks f/u; elevated troponin/ UTI resting comfortably with no distress. denies chest pain or sob. afebrile. d/w the RN and no acute issues over night. Objective Vitals Vital Signs Date Time Temp Pulse Resp B/P Pulse Ox O2 Delivery O2 Flow Rate FiO2 10/27/16 04:00 98.0 75 20 176/96 94 10/27/16 04:00 80 10/27/16 03:00 76 10/27/16 02:00 75 10/27/16 01:00 78 10/27/16 00:00 98.1 62 20 158/98 95 10/27/16 00:00 75 10/26/16 23:00 78 10/26/16 22:00 76 10/26/16 21:06 95 Nasal Cannula 5.00 10/26/16 21:05 Nasal Cannula 3.00 10/26/16 21:00 70 10/26/16 20:00 98.0 73 20 165/103 94 10/26/16 20:00 70 10/26/16 19:15 Nasal Cannula 3.00 10/26/16 19:00 74 10/26/16 18:00 78 10/26/16 17:00 74 10/26/16 16:00 74 10/26/16 16:00 97.5 78 20 145/70 94 10/26/16 15:50 76 10/26/16 12:00 97.1 73 18 144/75 94 10/26/16 09:37 76 10/26/16 09:35 79 10/26/16 09:23 93 Nasal Cannula 3.00 I/O 10/26/16 10/26/16 10/26/16 10/27/16 10/27/16 10/27/16 07:00 15:00 23:00 07:00 15:00 23:00 Intake Total 390 ml 720 ml 960 ml 480 ml Output Total 800 ml 1500 ml 2200 ml 1700 ml Balance -410 ml -780 ml -1240 ml -1220 ml Intake Oral 240 ml 720 ml 960 ml 480 ml IV Total 150 ml Output Urine Total 800 ml 1400 ml 2200 ml 1700 ml Stool Total 100 ml Bladder Scan Volume Amount 999 ml Result Diagram: 10/27/16 0600 10/27/16 0015 Imaging Last Impressions Chest X-Ray 10/26/16 0000 Signed Impressions: Service Date/Time: Wednesday, October 26, 2016 12:26 - CONCLUSION: 1. Cardia megaly with mild positive fluid balance. 2. Bibasilar airspace disease and questionable trace right pleural effusion. Jeremiah Caba MD Foot X-Ray 10/23/16 0000 Signed Impressions: Service Date/Time: Sunday, October 23, 2016 17:13 - CONCLUSION: Chronic changes and no definite signs of osteomyelitis. KTish Dean MD Renal Ultrasound 10/18/16 0000 Signed Impressions: Service Date/Time: Tuesday, October 18, 2016 15:27 - CONCLUSION: 1. Hydronephrosis of the right kidney. 2. Cystectomy with neobladder. Alok Upton MD Abdomen/Pelvis CT 10/18/16 0000 Signed Impressions: Service Date/Time: Tuesday, October 18, 2016 16:07 - CONCLUSION: 1. There is hydronephrosis of the right kidney similar to previous study with neobladder and ileostomy. 2. 3 mm nonobstructing right renal calculus. 3. Left nephrectomy. Alok Upton MD Objective Remarks GENERAL: This is a well-nourished, well-developed patient, in no apparent distress. CARDIOVASCULAR: Regular rate and regular rhythm without murmurs, gallops, or rubs. RESPIRATORY: Clear to auscultation. Breath sounds equal bilaterally. No wheezes , rales, or rhonchi. GASTROINTESTINAL: Abdomen soft, non-tender, nondistended. Normal, active bowel sounds MUSCULOSKELETAL: Extremities without clubbing, cyanosis, or edema. NEURO: awake and alert. skin; ulcer on the left heel Medications and IVs Current Medications Sodium Bicarbonate 50 meq 50 meq ONCE ONCE IV PUSH Last administered on 15:34; Start 10/18/16 at 14:30; Stop 10/18/16 at 14:31; Status DC Sodium Bicarbonate/ Dextrose (Sodium Bicarbonate 8.4% Inj/D5W 1000 ml Inj) 1, 150 ml @ 150 mls/hr Q7H40M IV Last administered on 10/20/16 01:17; Start at 15:00; Stop 10/20/16 at 16:33; Status DC Dextrose (D50w (Vial) Inj) 25 ml UNSCH PRN IV PUSH HYPOGLYCEMIA-SEE COMMENTS; Start 10/18/16 at 14:30; Stop 10/19/16 at 10:29; Status DC Insulin Human Regular (NovoLIN R SUPPLEMENTAL SCALE) 1 ACHS AND 3AM SQ ; Start 10/18/16 at 16:00; Stop 10/19/16 at 10:34; Status DC Sodium Bicarbonate 150 meq 150 meq ONCE ONCE IV PUSH Last administered on 10/18 15:20; Start 10/18/16 at 14:45; Stop 10/18/16 at 14:46; Status DC Piperacillin Sod/ Tazobactam Sod (Zosyn 2.25 Gm Premix) 50 ml @ 100 mls/hr Q8H IV Last administered on 10/27/16 00:57; Start 10/18/16 at 17:00 Ondansetron HCl (Zofran Inj) 4 mg Q6H PRN IV NAUSEA OR VOMITING Last administered on 10/18/16 18:40; Start 10/18/16 at 16:30 Albuterol/ Ipratropium (Duoneb Neb) 1 ampule Q2HR NEB PRN INH WHEEZING Last administered on 10/26/16 21:03; Start 10/18/16 at 16:30 Heparin Sodium (Porcine) (Heparin Inj) 5,000 units Q12H SQ Last administered on 10/25/16 17:22; Start 10/18/16 at 18:00; Stop 10/26/16 at 14:05; Status DC Miscellaneous Information 1 Q361D XX Last administered on 10/18/16 16:30; Start 10/18/16 at 16:30 Chlorhexidine Gluconate (Chlorhexidine 2% Cloth) Taper DAILY@04 TOP Last administered on 10/20/16 04:00; Start 10/19/16 at 04:00; Stop 10/15/17 at 03:59 Chlorhexidine Gluconate (Chlorhexidine 2% Cloth) 3 pack UNSCH PRN TOP HYGIENIC CARE; Start 10/18/16 at 16:30 Senna/Docusate Sodium (Margarita-Colace) 1 tab BID PO Last administered on 20:34; Start 10/18/16 at 21:00 Calcium Acetate 1334 mg 1,334 mg TID PO Last administered on 10/21/16 09:56; Start 10/19/16 at 09:00; Stop 10/21/16 at 16:52; Status DC Calcium Gluconate/ Dextrose (Calcium Gluconate Inj/D5W 100 ml Inj) 120 ml @ 120 mls/hr ONCE ONCE IV Last administered on 10/19/16 00:54; Start 10/19/16 at 01:00; Stop 10/19/16 at 01:59; Status DC Sodium Bicarbonate (Sodium Bicarbonate 8.4% Inj) 50 meq STK-MED ONCE .ROUTE ; Start 10/19/16 at 05:42; Stop 10/19/16 at 05:43; Status DC Sodium Bicarbonate 100 meq 100 meq NOW ONCE IV PUSH Last administered on 05:51; Start 10/19/16 at 06:00; Stop 10/19/16 at 06:01; Status DC Potassium Chloride 100 ml @ 50 mls/hr Q2H IV Last administered on 10/19/16 13 :22; Start 10/19/16 at 10:00; Stop 10/19/16 at 13:59; Status DC Calcium Gluconate 2 gm/Sodium Chloride 120 ml @ 120 mls/hr ONCE ONCE IV Last administered on 10/19/16 10:13; Start 10/19/16 at 10:30; Stop 10/19/16 at 11:29 ; Status DC Magnesium Sulfate/ Dextrose 100 ml @ 100 mls/hr Q1H IV Last administered on 11:25; Start 10/19/16 at 10:00; Stop 10/19/16 at 11:59; Status DC Cefepime HCl 2000 mg/Sodium Chloride 100 ml @ 200 mls/hr Q8H IV ; Start at 11:00; Stop 10/19/16 at 11:00; Status DC Sodium Chloride (NS 500 ml Inj) 500 ml @ 500 mls/hr BOLUS ONCE IV Last administered on 10/19/16 10:15; Start 10/19/16 at 10:00; Stop 10/19/16 at 10:59 ; Status DC Dextrose (D50w (Syr) Inj) 50 ml UNSCH PRN IV HYPOGLYCEMIA-SEE COMMENTS; Start 10/19/16 at 10:30 Glucagon (Glucagon Inj) 1 mg UNSCH PRN OTHER HYPOGLYCEMIA-SEE COMMENTS; Start 10/19/16 at 10:00; Stop 10/24/16 at 09:55; Status DC Insulin Aspart (NovoLOG SUPPLEMENTAL SCALE) 1 ACHS SLIDING SCALE SQ Last administered on 10/20/16 21:06; Start 10/19/16 at 11:00; Stop 10/26/16 at 15:49 ; Status DC Aspirin 81 mg 81 mg DAILY PO Last administered on 10/26/16 09:25; Start at 10:30 Linezolid (Zyvox 600 Mg Premix) 300 ml @ 300 mls/hr Q12H IV Last administered on 10/22/16 11:56; Start 10/19/16 at 11:00; Stop 10/22/16 at 13:55; Status DC Potassium Bicarb/ Potassium Chloride 50 meq 50 meq NOW ONCE PO Last administered on 10/19/16 10:44; Start 10/19/16 at 10:45; Stop 10/19/16 at 10:46 ; Status DC Calcium Gluconate 2 gm/Sodium Chloride 120 ml @ 120 mls/hr NOW IV Last administered on 10/19/16 21:47; Start 10/19/16 at 21:45; Stop 10/19/16 at 22:44 ; Status DC Potassium Chloride 100 ml @ 50 mls/hr Q2H IV Last administered on 10/20/16 01 :19; Start 10/19/16 at 22:00; Stop 10/20/16 at 01:59; Status DC Calcium Gluconate 2 gm/Sodium Chloride 120 ml @ 120 mls/hr NOW ONCE IV Last administered on 10/20/16 10:27; Start 10/20/16 at 10:00; Stop 10/20/16 at 10:59 ; Status DC Sodium Chloride (NS 1000 ml Inj) 1,000 ml @ 100 mls/hr Q10H IV Last administered on 10/23/16 14:45; Start 10/20/16 at 16:45; Stop 10/24/16 at 09:55 ; Status DC Polyethylene Glycol (Miralax) 17 gm DAILY PO Last administered on 10/26/16 09: 29; Start 10/20/16 at 20:00 Oxycodone HCl (Roxicodone) 10 mg Q6H PRN PO PAIN SCALE 7 TO 10 Last administered on 10/25/16 09:40; Start 10/21/16 at 10:15; Stop 10/25/16 at 15:33 ; Status DC Potassium Bicarb/ Potassium Chloride (K-Lyte Cl Eff) 50 meq NOW ONCE PO Last administered on 10/21/16 12:51; Start 10/21/16 at 13:00; Stop 10/21/16 at 13:01 ; Status DC Calcitriol (Rocaltrol) 0.5 mcg DAILY PO Last administered on 10/26/16 09:25; Start 10/21/16 at 17:00 Calcium Carbonate (Oscal) 1,000 mg Q8HR PO Last administered on 10/26/16 20:34 ; Start 10/21/16 at 22:00 Dofetilide (Tikosyn) 500 mcg BID PO ; Start 10/21/16 at 21:00; Stop 10/21/16 at 21:43; Status DC Potassium Chloride (KCl) 40 meq ONCE ONCE PO Last administered on 10/22/16 07 :22; Start 10/22/16 at 06:45; Stop 10/22/16 at 06:46; Status DC Calcium Gluconate 1 gm 1 gm ONCE ONCE IV PUSH ; Start 10/22/16 at 06:45; Stop 10/22/16 at 06:46; Status Cancel Calcium Gluconate/ Sodium Chloride (Calcium Gluconate Inj/NS Inj) 110 ml @ 220 mls/hr ONCE ONCE IV Last administered on 10/22/16 08:19; Start 10/22/16 at 07 :00; Stop 10/22/16 at 07:29; Status DC Hydralazine HCl (Apresoline) 50 mg Q8HR PO Last administered on 10/23/16 06:09 ; Start 10/22/16 at 12:45; Stop 10/23/16 at 11:12; Status DC Collagenase (Santyl Oint) 1 applic DAILY TOPICAL Last administered on 09:27; Start 10/22/16 at 12:45 Linezolid (Zyvox) 600 mg Q12HR PO Last administered on 10/26/16 21:00; Start 10/22/16 at 21:00 Hydralazine HCl (Apresoline) 100 mg Q8HR PO Last administered on 10/27/16 04:27 ; Start 10/23/16 at 14:00 Amlodipine Besylate (Norvasc) 5 mg DAILY PO Last administered on 10/26/16 09: 25; Start 10/24/16 at 10:00 Metoprolol Succinate (Toprol Xl) 25 mg DAILY PO Last administered on 10/26/16 09:24; Start 10/24/16 at 10:00 Furosemide (Lasix Inj) 20 mg BID@09,18 IV PUSH Last administered on 10/26/16 18:43; Start 10/24/16 at 10:30 Albumin Human (Albumin 25% Inj) 25 gm Q12H IV Last administered on 10/27/16 06: 30; Start 10/24/16 at 18:45 Oxycodone HCl (Roxicodone) 20 mg Q4HR PRN PO PAIN SCALE 7 TO 10 Last administered on 10/27/16 03:46; Start 10/25/16 at 16:00 Nitroglycerin (Nitrostat Sl) 0.4 mg ONCE ONCE SL Last administered on 14:27; Start 10/26/16 at 12:30; Stop 10/26/16 at 12:31; Status DC Potassium Chloride (KCl) 20 meq ONCE ONCE PO Last administered on 10/26/16 14 :17; Start 10/26/16 at 12:30; Stop 10/26/16 at 12:31; Status DC Nitroglycerin 0.5 inch 0.5 inch Q6H TOPICAL Last administered on 10/26/16 20: 34; Start 10/26/16 at 15:00 Heparin Sodium/ Dextrose (Heparin-D5W Inj) 250 ml @ 0 mls/hr TITRATE IV Last administered on 10/26/16 19:07; Start 10/26/16 at 14:15 Morphine Sulfate (Morphine Inj) 2 mg Q3H PRN IV PUSH chest pain Last administered on 10/27/16 03:46; Start 10/26/16 at 14:30 Atorvastatin Calcium (Lipitor) 40 mg HS PO Last administered on 10/26/16 23:15 ; Start 10/26/16 at 21:00 A/P Assessment and Plan A/p NSTEMI -Similar chest pain from his prior MN. Previously saw Dr. Coelho but has not seen him for many years. -continue heparin drip , aspirin and metoprolol. Give patient nitroglycerin and morphine for chest pain. -cardiology following. Acute respiratory failure- resolved -Patient on IV Lasix. Continue a strict ins and outs. Avoid nephrotoxins. -Continue with IV Lasix. Acute kidney injury-secondary to obstructive uropathy S/P left nephrectomy, cystectomy with neobladder -Jean place with improvement in symptoms. -Urology following Dr. Shelton -Per Dr. Shelton to keep catheter in until his creatinines around his baseline 2. -Follow-up nephrology - Strict I/Os Hydronephrosis right kidney -Due to the above. Sepsis -Secondary to the above. Treated. Resolved. Hypertension H/O CABG, cardiac stent -Initially antihypertensive medication was held secondary to hypotension. Continue hydralazine. Continue metoprolol and amlodipine. Adjust accordingly. -Continue ASA 81 mg/day Chronic Left heel [id number] -Infectious disease following. -On Zosyn and PO Linezolid -Cultures growing proteus mirabilis, MRSA, group D enterococcus. -Wound care nurse consulted. UTI -Growing enterococcus faecalis, Klebsiella pneumonia ESBL positive, protease mirabilis -Patient on Zosyn and Zyvox. -Urine cultures and cultures grew negative derek and group D enterococcus. -Management per infectious disease. Right issue wound [id number] -stable S/P C5-C6 fusion, C7 discectomy -Stable. Prophylaxis: GI Prophylaxis DVT Prophylaxis -- on Heparin drip Tyler Gallegos MD Oct 27, 2016 08:35
[2016-10-27] MEDS: COLLAGENASE OINT 30 GM TUBE TOPICAL SCH (08:51)
[2016-10-27] MEDS: FUROSEMIDE 20 MG/2 ML VIAL IV PUSH SCH ×2 (08:52→17:20)
[2016-10-27] MEDS: ASPIRIN EC 81 MG TABEC PO SCH (08:52)
[2016-10-27] MEDS: amLODIPine BESYLATE 5 MG TAB PO SCH (08:52)
[2016-10-27] MEDS: CALCITRIOL 0.25 MCG CAP PO SCH (08:52)
[2016-10-27] MEDS: LINEZOLID 600 MG TAB PO SCH ×2 (08:53→21:33)
[2016-10-27] MEDS: POLYETHYLENE GLYCOL 17 GM PKG PO SCH ×2 (08:53→09:00)
[2016-10-27] MEDS: METOPROLOL SUCCINATE 25 MG EXTENDED RELEASE TAB PO SCH (08:53)
[2016-10-27] MEDS: DOCUSATE SODIUM 50 MG/SENNA 8.6 MG TAB PO SCH ×3 (08:54→21:00)
[2016-10-27] MEDS ORDERED: ACETAMINOPHEN 325 MG TAB PO PRN (09:00)
--- NOTE | 2016-10-27 10:55 | PD.CARD.PN ---
Subjective Subjective Remarks No events overnight No chest pain, SOB is chronic in nature Objective Medications Current Medications Medications (Trade) Dose Ordered Sig/Yosi Route Start Time Stop Time Status Last Admin (Zosyn 2.25 Gm Premix) 50 ml @ 100 mls/hr Q8H IV 10/18/16 17:00 10/27/16 08:54 (Zofran Inj) 4 mg Q6H PRN IV 10/18/16 16:30 10/18/16 18:40 Miscellaneous Information 1 Q361D XX 10/18/16 16:30 10/18/16 16:30 (Chlorhexidine 2% Cloth) Taper DAILY@04 TOP 10/19/16 04:00 10/15/17 03:59 10/20/16 04:00 (Chlorhexidine 2% Cloth) 3 pack UNSCH PRN TOP 10/18/16 16:30 (Margarita-Colace) 1 tab BID PO 10/18/16 21:00 10/26/16 20:34 (D50w (Syr) Inj) 50 ml UNSCH PRN IV 10/19/16 10:30 (Ecotrin Ec) 81 mg DAILY PO 10/19/16 10:30 10/27/16 08:52 (Miralax) 17 gm DAILY PO 10/20/16 20:00 10/26/16 09:29 (Rocaltrol) 0.5 mcg DAILY PO 10/21/16 17:00 10/27/16 08:52 (Oscal) 1,000 mg Q8HR PO 10/21/16 22:00 10/26/16 20:34 (Santyl Oint) 1 applic DAILY TOPICAL 10/22/16 12:45 10/27/16 08:51 (Zyvox) 600 mg Q12HR PO 10/22/16 21:00 10/27/16 08:53 (Apresoline) 100 mg Q8HR PO 10/23/16 14:00 10/27/16 04:27 (Norvasc) 5 mg DAILY PO 10/24/16 10:00 10/27/16 08:52 (Toprol Xl) 25 mg DAILY PO 10/24/16 10:00 10/27/16 08:53 (Lasix Inj) 20 mg BID@09,18 IV PUSH 10/24/16 10:30 10/27/16 08:52 (Albumin 25% Inj) 25 gm Q12H IV 10/24/16 18:45 10/27/16 06:30 (Roxicodone) 20 mg Q4HR PRN PO 10/25/16 16:00 10/27/16 03:46 Nitroglycerin 0.5 inch 0.5 inch Q6H TOPICAL 10/26/16 15:00 10/27/16 08:53 (Heparin-D5W Inj) 250 ml @ 0 mls/hr TITRATE IV 10/26/16 14:15 10/26/16 19:07 (Morphine Inj) 2 mg Q3H PRN IV PUSH 10/26/16 14:30 10/27/16 03:46 (Lipitor) 40 mg HS PO 10/26/16 21:00 10/26/16 23:15 (Tylenol) 650 mg Q4H PRN PO 10/27/16 09:00 10/27/16 09:18 Vital Signs / I&O Vital Signs Date Time Temp Pulse Resp B/P Pulse Ox O2 Delivery O2 Flow Rate FiO2 10/27/16 04:00 98.0 75 20 176/96 94 10/27/16 04:00 80 10/27/16 03:00 76 10/27/16 02:00 75 10/27/16 01:00 78 10/27/16 00:00 98.1 62 20 158/98 95 10/27/16 00:00 75 10/26/16 23:00 78 10/26/16 22:00 76 10/26/16 21:06 95 Nasal Cannula 5.00 10/26/16 21:05 Nasal Cannula 3.00 10/26/16 21:00 70 10/26/16 20:00 98.0 73 20 165/103 94 10/26/16 20:00 70 10/26/16 19:15 Nasal Cannula 3.00 10/26/16 19:00 74 10/26/16 18:00 78 10/26/16 17:00 74 10/26/16 16:00 74 10/26/16 16:00 97.5 78 20 145/70 94 10/26/16 15:50 76 10/26/16 12:00 97.1 73 18 144/75 94 I/O 10/26/16 10/26/16 10/26/16 10/27/16 8/1/17 8/1/17 07:00 15:00 23:00 07:00 15:00 23:00 Intake Total 390 ml 720 ml 960 ml 480 ml Output Total 800 ml 1500 ml 2200 ml 1700 ml Balance -410 ml -780 ml -1240 ml -1220 ml Intake Oral 240 ml 720 ml 960 ml 480 ml IV Total 150 ml Output Urine Total 800 ml 1400 ml 2200 ml 1700 ml Stool Total 100 ml Bladder Scan Volume Amount 999 ml Physical Exam GENERAL: NAD, AAOx3 SKIN: Warm and dry. HEAD: Atraumatic. Normocephalic. EYES: Pupils equal and round. No scleral icterus. No injection or drainage. ENT: No nasal bleeding or discharge. Mucous membranes pink and moist. NECK: Trachea midline. No JVD. CARDIOVASCULAR: Regular rate and rhythm. No murmurs noted RESPIRATORY: No accessory muscle use. Decreased breath sounds bilaterally GASTROINTESTINAL: Abdomen soft, non-tender, nondistended. Hepatic and splenic margins not palpable. MUSCULOSKELETAL: 1+ pitting edema bilaterally NEUROLOGICAL: Awake and alert. No obvious cranial nerve deficits. PSYCHIATRIC: Appropriate mood and affect; insight and judgment normal. Laboratory Laboratory Tests Test 10/26/16 10/26/16 10/26/16 10/26/16 12:44 15:22 18:24 20:56 Troponin I 2.58 NG/ML 1.99 NG/ML B-Type Natriuretic Peptide 1352 PG/ML White Blood Count 9.1 TH/MM3 Red Blood Count 3.32 MIL/MM3 Hemoglobin 8.2 GM/DL Hematocrit 26.9 % Mean Corpuscular Volume 81.0 FL Mean Corpuscular Hemoglobin 24.6 PG Mean Corpuscular Hemoglobin 30.4 % Concent Red Cell Distribution Width 20.5 % Platelet Count 163 TH/MM3 Mean Platelet Volume 7.0 FL Prothrombin Time 12.6 SEC Prothromb Time International 1.1 RATIO Ratio Activated Partial 28.8 SEC 33.1 SEC Thromboplast Time Test 10/27/16 10/27/16 00:15 06:00 Sodium Level 145 MEQ/L Potassium Level 3.4 MEQ/L Chloride Level 107 MEQ/L Carbon Dioxide Level 27.1 MEQ/L Anion Gap 11 MEQ/L Blood Urea Nitrogen 40 MG/DL Creatinine 3.39 MG/DL Estimat Glomerular Filtration 19 ML/MIN Rate Random Glucose 141 MG/DL Calcium Level 7.6 MG/DL Total Bilirubin 0.4 MG/DL Direct Bilirubin 0.1 MG/DL Indirect Bilirubin 0.3 MG/DL Aspartate Amino Transf 11 U/L (AST/SGOT) Alanine Aminotransferase 9 U/L (ALT/SGPT) Alkaline Phosphatase 72 U/L Troponin I 1.74 NG/ML Total Protein 6.3 GM/DL Albumin 2.8 GM/DL White Blood Count 8.3 TH/MM3 Red Blood Count 3.39 MIL/MM3 Hemoglobin 8.6 GM/DL Hematocrit 27.5 % Mean Corpuscular Volume 81.0 FL Mean Corpuscular Hemoglobin 25.4 PG Mean Corpuscular Hemoglobin 31.3 % Concent Red Cell Distribution Width 20.5 % Platelet Count 143 TH/MM3 Mean Platelet Volume 7.2 FL Activated Partial 30.9 SEC Thromboplast Time Assessment and Plan Problem List: (1) Elevated troponin (2) CAD (coronary artery disease) (3) Hx of CABG (4) 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 (5) Paraplegia (6) Acute renal failure (7) CKD (chronic kidney disease), stage III Assessment and Plan 1) Chest pain yesterday, concerning for ischemia Elevated troponin although not a typical rise and fall Possible secondary to original presentation and just continuing down 2) VIJAY on CKD Concern for overall kidney function, slowly back towards baseline 3) Discussed extensively with the patient about his options Has family coming in today, will discuss further with him about where we go from here from a cardiovascular standpoint Most likely plan stress test (2 day) then if positive will discuss cardiac catheterization If catheterization then understands high risk for kidney failure and need for HD If catheterization then will plan on diagnostic and if intervention is needed will plan on staging Also plan on using Dyevert if catheterization 4) Con't heparin drip/ASA/BB for now Problem Qualifiers (1) 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
[2016-10-27] MEDS: HEPARIN-D5W INJ 250 ML IV SCH (14:37)
--- NOTE | 2016-10-27 14:54 | EKG ---
Date Performed: 10/26/2016 Time Performed: 11:56:54 PTAGE: 61 years EKG: Sinus rhythm NONSPECIFIC ST & T-WAVE ABNORMALITY BORDERLINE ECG PREVIOUS TRACING : 10/18/2016 12.08 Compared to prior tracing, ST segment depression has improv ed. T-wave flattening is now noted. Clinical correlation is recommended. DOCTOR: Arturo Balbuena Interpretating Date/Time 10/27/2016 14:53:34
[2016-10-27] MEDS ORDERED: CALC.25 PO (15:42)
--- NOTE | 2016-10-27 18:19 | HHI.NPPN ---
Subjective History of Present Illness 61-year-old male with past medical history of paraplegia, history of partial small-bowel obstruction, hypertension, hyperlipidemia, ischemic heart disease, chronic kidney disease, arthritis, anemia, history of neobladder formation with neurogenic bladder, left nephrectomy who was admitted with complaint of shortness of breath. The patient mainly came with shortness of breath and he was found to be severely acidotic with a very low pH of 6.99 and bicarb was very low and very high BUN and creatinine. 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 His creatinine was 2.1-2.2 which was his baseline when he was admitted last month. Additional Remarks Patient is alert, no chest pain now, no SOB. Review of Systems General Constitutional: Fatigue Respiratory Lungs: SOB Cardiovascular Cardiac: BAEZ Objective Data Data 10/26/16 10/27/16 19:00 07:00 Intake Total 1680 ml 480 ml Output Total 3700 ml 1700 ml Balance -2020 ml -1220 ml Intake Oral 1680 ml 480 ml Output Urine Total 3600 ml 1700 ml Stool Total 100 ml Bladder Scan Volume Amount 999 ml Vital Signs Date Time Temp Pulse Resp B/P Pulse Ox O2 Delivery O2 Flow Rate FiO2 10/27/16 18:00 71 10/27/16 17:50 67 10/27/16 16:05 75 10/27/16 15:08 98.8 75 19 159/94 93 10/27/16 15:08 71 10/27/16 14:08 73 10/27/16 13:00 76 10/27/16 12:00 66 10/27/16 11:00 82 10/27/16 11:00 99.0 73 20 161/96 94 10/27/16 10:00 72 10/27/16 09:00 76 10/27/16 08:00 68 10/27/16 07:50 77 10/27/16 07:50 97.4 76 20 174/95 96 Manual Cuff/Auscultation 10/27/16 07:00 94 Nasal Cannula 3.00 10/27/16 04:00 98.0 75 20 176/96 94 10/27/16 04:00 80 10/27/16 03:00 76 10/27/16 02:00 75 10/27/16 01:00 78 10/27/16 00:00 98.1 62 20 158/98 95 10/27/16 00:00 75 10/26/16 23:00 78 10/26/16 22:00 76 10/26/16 21:06 95 Nasal Cannula 5.00 10/26/16 21:05 Nasal Cannula 3.00 10/26/16 21:00 70 10/26/16 20:00 98.0 73 20 165/103 94 10/26/16 20:00 70 10/26/16 19:15 Nasal Cannula 3.00 10/26/16 19:00 74 -: 10/27/16 0600 10/27/16 0015 Physical Exam General Appearance: Well Nourished, No Acute Distress, Comfortable Eyes Eye Exam: Pupils Equal Throat Throat Exam: Oral Mucosa Connell & Moist Neck Neck Exam: Neck Supple Pulmonary Resp Exam: Breath Sounds Equal, No Distress, Decreased Bases Cardiology CV Exam: Regular, Normal Sinus Rhythm Gastrointestinal/Abdomen GI Exam: Soft, Non-Tender, Bowel Sounds Present Extremeties Extremities Exam: Trace Edema Neurologic Neuro Exam: Alert, Awake, Oriented Psychiatric Psych Exam: Appropriate Responses Assessment/Plan Assessment Summary: VIJAY/Acute Renal Failure, CKD Stage III Electrolyte Assessment: Hypocalcemia, Hypokalemia, Metabolic Acidosis Problem List: (1) Leukocytosis (2) Acidemia (3) Respiratory distress (4) Paraplegia (5) UTI (urinary tract infection) (6) CKD (chronic kidney disease), stage III (7) Acute renal failure Plan Patient has advance stage 3 chronic kidney disease, and develop VIJAY, with severe metabolic acidosis. Also has UTI and obstructive uropathy. Creatinine is slowly improving.Lasix was given due to edema Growing enterococcus faecalis, Klebsiella pneumonia ESBL positive, protease mirabilis Patient on Zosyn and Zyvox. Lasix 20 mg IV Q 12 Now has increase Trop I. Started on IV Heparin. To get stress test. Creatinine continue to improve. Continue Lasix, D/C Albumin. Problem Qualifiers (1) UTI (urinary tract infection): Lynsey Goldman MD Oct 27, 2016 18:19
--- NOTE | 2016-10-27 18:32 | ECHRPT ---
Indication: Non-ST elevation (NSTEMI) myocardial infarction CONCLUSIONS The left ventricular systolic function is normal with an estimated ejection fraction in the range of 60-65%. Left ventricular diastolic function parameters are normal. Wall thickness is measured at the upper limits of normal. Normal left ventricular size. Mild mitral valve regurgitation. There is mild to moderate tricuspid valve regurgitation. The estimated pulmonary arterial pressure is 55 mmHg. BP: 176 / 96 HR: 80 Rhythm: Sinus MEASUREMENTS (Male / Female) Normal Values Technical Quality:Poor 2D ECHO LV Diastolic Diameter PLAX 6.4 cm 4.2 - 5.9 / 3.9 - 5.3 cm LV Systolic Diameter PLAX 4.6 cm IVS Diastolic Thickness 1.1 cm 0.6 - 1.0 / 0.6 - 0.9 cm LVPW Diastolic Thickness 1.1 cm 0.6 - 1.0 / 0.6 - 0.9 cm LV Relative Wall Thickness 0.4 LVOT Diameter 2.9 cm LA Systolic Diameter LX 4.0 cm 3.0 - 4.0 / 2.7 - 3.8 cm M-MODE Aortic Root Diameter MM 2.8 cm AV Cusp Separation MM 2.7 cm DOPPLER AV Peak Velocity 182.0 cm/s AV Peak Gradient 13.2 mmHg LVOT Peak Velocity 153.0 cm/s LVOT Peak Gradient 9.4 mmHg AV Area Cont Eq pk 5.6 cm MR Peak Velocity 513.0 cm/s MR Peak Gradient 105.3 mmHg Mitral E Point Velocity 124.0 cm/s Mitral A Point Velocity 109.0 cm/s Mitral E to A Ratio 1.1 LV E' Lateral Velocity 5.3 cm/s Mitral E to LV E' Lateral Ratio 23.6 LV E' Septal Velocity 3.7 cm/s Mitral E to LV E' Septal Ratio 33.5 TR Peak Velocity 337.0 cm/s TR Peak Gradient 45.4 mmHg PV Peak Velocity 130.0 cm/s PV Peak Gradient 6.8 mmHg FINDINGS LEFT VENTRICLE The left ventricular systolic function is normal with an estimated ejection fraction in the range of 60-65%. Left ventricular diastolic function parameters are normal. Wall thickness is measured at the upper limits of normal. Normal left ventricular size. RIGHT VENTRICLE Normal right ventricular size and systolic function. LEFT ATRIUM The left atrial size is normal. RIGHT ATRIUM The right atrial size is normal. ATRIAL SEPTUM Normal atrial septal thickness without atrial level shunting by limited color doppler interrogation. AORTA The aortic root and proximal ascending aorta are normal in size on limited imaging. MITRAL VALVE Structurally normal mitral valve. Mild mitral valve regurgitation. AORTIC VALVE Trileaflet aortic valve. No aortic valve stenosis or regurgitation. TRICUSPID VALVE Structurally normal tricuspid valve. There is mild to moderate tricuspid valve regurgitation. The estimated pulmonary arterial pressure is 55 mmHg. PULMONARY VALVE The pulmonary valve is not well visualized. VESSELS The inferior vena cava is normal in size. PERICARDIUM No pericardial effusion. Leticia Montgomery MD, FACC (Electronically Signed) Final Date:27 October 2016 18:31
[2016-10-27 18:35] LABS: APTT (PATIENT) 26.8 SEC (24.3-30.1)
[2016-10-27] MEDS: ATORVASTATIN 40 MG TAB PO SCH (21:33)
[2016-10-28] VITALS (25 sets, daily range): BP systolic 153–174; BP diastolic 85–99; PULSE 69–87; RESP 18–20; TEMP 98.1–98.7; O2SAT 91–98
[2016-10-28] MEDS: MORPHINE SULFATE 4 MG/ML INJ IV PUSH PRN ×3 (02:06→21:28)
[2016-10-28] MEDS: PIPERACIL-TAZO 2.25 GM PREMIX 50 ML IV SCH ×3 (02:06→15:40)
[2016-10-28] MEDS: CHLORHEXIDINE GLUCONATE 2 % 1 PACK (2 CLOTHS) TOP SCH (02:20)
[2016-10-28] MEDS: NITROGLYCERIN 2% OINT 1 GM PACKET TOPICAL SCH ×4 (02:20→21:00)
[2016-10-28 02:54] LABS: BICARBONATE 29.6 MEQ/L (21.0-32.0); POTASSIUM 3.5 MEQ/L (3.5-5.1)
[2016-10-28] MEDS: hydrALAZINE HCL 100 MG TAB PO SCH ×3 (06:00→21:12)
[2016-10-28] MEDS: CALCIUM CARBONATE 1.25 GM (CA 500 MG) TAB PO SCH ×3 (06:00→21:13)
--- NOTE | 2016-10-28 08:48 | HHI.PR ---
Subjective Remarks in no acute distress. denies chest pain or sob. afebrile. Objective Vitals Vital Signs Date Time Temp Pulse Resp B/P Pulse Ox O2 Delivery O2 Flow Rate FiO2 10/28/16 07:44 Nasal Cannula 3.00 10/28/16 06:00 74 10/28/16 05:03 98 Nasal Cannula 3.00 10/28/16 05:00 72 10/28/16 04:00 69 10/28/16 04:00 77 18 161/88 91 10/28/16 03:00 80 10/28/16 02:00 72 10/28/16 01:00 72 10/28/16 00:00 80 18 159/91 93 10/28/16 00:00 75 10/27/16 23:00 70 10/27/16 22:20 Nasal Cannula 3.00 10/27/16 22:00 72 10/27/16 21:00 74 10/27/16 20:00 77 10/27/16 20:00 98.5 86 18 166/95 93 10/27/16 19:00 76 10/27/16 18:00 71 10/27/16 17:50 67 10/27/16 16:05 75 10/27/16 15:08 98.8 75 19 159/94 93 10/27/16 15:08 71 10/27/16 14:08 73 10/27/16 13:00 76 10/27/16 12:00 66 10/27/16 11:00 82 10/27/16 11:00 99.0 73 20 161/96 94 10/27/16 10:00 72 10/27/16 09:00 76 I/O 10/27/16 10/27/16 10/27/16 10/28/16 10/28/16 10/28/16 07:00 15:00 23:00 07:00 15:00 23:00 Intake Total 480 ml 1210 ml 360 ml Output Total 1700 ml 2910 ml 1675 ml Balance -1220 ml -1700 ml -1315 ml Intake Oral 480 ml 960 ml 360 ml IV Total 250 ml Output Urine Total 1700 ml 2860 ml 1600 ml Stool Total 50 ml 75 ml Result Diagram: 10/27/16 0600 10/28/16 0154 Imaging Last Impressions Chest X-Ray 10/26/16 0000 Signed Impressions: Service Date/Time: Wednesday, October 26, 2016 12:26 - CONCLUSION: 1. Cardia megaly with mild positive fluid balance. 2. Bibasilar airspace disease and questionable trace right pleural effusion. Jeremiah Caba MD Foot X-Ray 10/23/16 0000 Signed Impressions: Service Date/Time: Sunday, October 23, 2016 17:13 - CONCLUSION: Chronic changes and no definite signs of osteomyelitis. Deborah Dean MD Renal Ultrasound 10/18/16 0000 Signed Impressions: Service Date/Time: Tuesday, October 18, 2016 15:27 - CONCLUSION: 1. Hydronephrosis of the right kidney. 2. Cystectomy with neobladder. Alok Upton MD Abdomen/Pelvis CT 10/18/16 0000 Signed Impressions: Service Date/Time: Tuesday, October 18, 2016 16:07 - CONCLUSION: 1. There is hydronephrosis of the right kidney similar to previous study with neobladder and ileostomy. 2. 3 mm nonobstructing right renal calculus. 3. Left nephrectomy. Alok Upton MD Objective Remarks GENERAL: This is a well-nourished, well-developed patient, in no apparent distress. CARDIOVASCULAR: Regular rate and regular rhythm without murmurs, gallops, or rubs. RESPIRATORY: Clear to auscultation. Breath sounds equal bilaterally. No wheezes , rales, or rhonchi. GASTROINTESTINAL: Abdomen soft, non-tender, nondistended. Normal, active bowel sounds MUSCULOSKELETAL: Extremities without clubbing, cyanosis, or edema. NEURO: awake and alert. skin; ulcer on the left heel Medications and IVs Current Medications Sodium Bicarbonate 50 meq 50 meq ONCE ONCE IV PUSH Last administered on 15:34; Start 10/18/16 at 14:30; Stop 10/18/16 at 14:31; Status DC Sodium Bicarbonate/ Dextrose (Sodium Bicarbonate 8.4% Inj/D5W 1000 ml Inj) 1, 150 ml @ 150 mls/hr Q7H40M IV Last administered on 10/20/16 01:17; Start at 15:00; Stop 10/20/16 at 16:33; Status DC Dextrose (D50w (Vial) Inj) 25 ml UNSCH PRN IV PUSH HYPOGLYCEMIA-SEE COMMENTS; Start 10/18/16 at 14:30; Stop 10/19/16 at 10:29; Status DC Insulin Human Regular (NovoLIN R SUPPLEMENTAL SCALE) 1 ACHS AND 3AM SQ ; Start 10/18/16 at 16:00; Stop 10/19/16 at 10:34; Status DC Sodium Bicarbonate 150 meq 150 meq ONCE ONCE IV PUSH Last administered on 10/18 15:20; Start 10/18/16 at 14:45; Stop 10/18/16 at 14:46; Status DC Piperacillin Sod/ Tazobactam Sod (Zosyn 2.25 Gm Premix) 50 ml @ 100 mls/hr Q8H IV Last administered on 10/28/16 02:06; Start 10/18/16 at 17:00 Ondansetron HCl (Zofran Inj) 4 mg Q6H PRN IV NAUSEA OR VOMITING Last administered on 10/18/16 18:40; Start 10/18/16 at 16:30 Albuterol/ Ipratropium (Duoneb Neb) 1 ampule Q2HR NEB PRN INH WHEEZING Last administered on 10/26/16 21:03; Start 10/18/16 at 16:30 Heparin Sodium (Porcine) (Heparin Inj) 5,000 units Q12H SQ Last administered on 10/25/16 17:22; Start 10/18/16 at 18:00; Stop 10/26/16 at 14:05; Status DC Miscellaneous Information 1 Q361D XX Last administered on 10/18/16 16:30; Start 10/18/16 at 16:30 Chlorhexidine Gluconate (Chlorhexidine 2% Cloth) Taper DAILY@04 TOP Last administered on 10/20/16 04:00; Start 10/19/16 at 04:00; Stop 10/15/17 at 03:59 Chlorhexidine Gluconate (Chlorhexidine 2% Cloth) 3 pack UNSCH PRN TOP HYGIENIC CARE; Start 10/18/16 at 16:30 Senna/Docusate Sodium (Margarita-Colace) 1 tab BID PO Last administered on 20:34; Start 10/18/16 at 21:00 Calcium Acetate 1334 mg 1,334 mg TID PO Last administered on 10/21/16 09:56; Start 10/19/16 at 09:00; Stop 10/21/16 at 16:52; Status DC Calcium Gluconate/ Dextrose (Calcium Gluconate Inj/D5W 100 ml Inj) 120 ml @ 120 mls/hr ONCE ONCE IV Last administered on 10/19/16 00:54; Start 10/19/16 at 01:00; Stop 10/19/16 at 01:59; Status DC Sodium Bicarbonate (Sodium Bicarbonate 8.4% Inj) 50 meq STK-MED ONCE .ROUTE ; Start 10/19/16 at 05:42; Stop 10/19/16 at 05:43; Status DC Sodium Bicarbonate 100 meq 100 meq NOW ONCE IV PUSH Last administered on 05:51; Start 10/19/16 at 06:00; Stop 10/19/16 at 06:01; Status DC Potassium Chloride 100 ml @ 50 mls/hr Q2H IV Last administered on 10/19/16 13 :22; Start 10/19/16 at 10:00; Stop 10/19/16 at 13:59; Status DC Calcium Gluconate 2 gm/Sodium Chloride 120 ml @ 120 mls/hr ONCE ONCE IV Last administered on 10/19/16 10:13; Start 10/19/16 at 10:30; Stop 10/19/16 at 11:29 ; Status DC Magnesium Sulfate/ Dextrose 100 ml @ 100 mls/hr Q1H IV Last administered on 11:25; Start 10/19/16 at 10:00; Stop 10/19/16 at 11:59; Status DC Cefepime HCl 2000 mg/Sodium Chloride 100 ml @ 200 mls/hr Q8H IV ; Start at 11:00; Stop 10/19/16 at 11:00; Status DC Sodium Chloride (NS 500 ml Inj) 500 ml @ 500 mls/hr BOLUS ONCE IV Last administered on 10/19/16 10:15; Start 10/19/16 at 10:00; Stop 10/19/16 at 10:59 ; Status DC Dextrose (D50w (Syr) Inj) 50 ml UNSCH PRN IV HYPOGLYCEMIA-SEE COMMENTS; Start 10/19/16 at 10:30 Glucagon (Glucagon Inj) 1 mg UNSCH PRN OTHER HYPOGLYCEMIA-SEE COMMENTS; Start 10/19/16 at 10:00; Stop 10/24/16 at 09:55; Status DC Insulin Aspart (NovoLOG SUPPLEMENTAL SCALE) 1 ACHS SLIDING SCALE SQ Last administered on 10/20/16 21:06; Start 10/19/16 at 11:00; Stop 10/26/16 at 15:49 ; Status DC Aspirin 81 mg 81 mg DAILY PO Last administered on 10/27/16 08:52; Start at 10:30 Linezolid (Zyvox 600 Mg Premix) 300 ml @ 300 mls/hr Q12H IV Last administered on 10/22/16 11:56; Start 10/19/16 at 11:00; Stop 10/22/16 at 13:55; Status DC Potassium Bicarb/ Potassium Chloride 50 meq 50 meq NOW ONCE PO Last administered on 10/19/16 10:44; Start 10/19/16 at 10:45; Stop 10/19/16 at 10:46 ; Status DC Calcium Gluconate 2 gm/Sodium Chloride 120 ml @ 120 mls/hr NOW IV Last administered on 10/19/16 21:47; Start 10/19/16 at 21:45; Stop 10/19/16 at 22:44 ; Status DC Potassium Chloride 100 ml @ 50 mls/hr Q2H IV Last administered on 10/20/16 01 :19; Start 10/19/16 at 22:00; Stop 10/20/16 at 01:59; Status DC Calcium Gluconate 2 gm/Sodium Chloride 120 ml @ 120 mls/hr NOW ONCE IV Last administered on 10/20/16 10:27; Start 10/20/16 at 10:00; Stop 10/20/16 at 10:59 ; Status DC Sodium Chloride (NS 1000 ml Inj) 1,000 ml @ 100 mls/hr Q10H IV Last administered on 10/23/16 14:45; Start 10/20/16 at 16:45; Stop 10/24/16 at 09:55 ; Status DC Polyethylene Glycol (Miralax) 17 gm DAILY PO Last administered on 10/26/16 09: 29; Start 10/20/16 at 20:00 Oxycodone HCl (Roxicodone) 10 mg Q6H PRN PO PAIN SCALE 7 TO 10 Last administered on 10/25/16 09:40; Start 10/21/16 at 10:15; Stop 10/25/16 at 15:33 ; Status DC Potassium Bicarb/ Potassium Chloride (K-Lyte Cl Eff) 50 meq NOW ONCE PO Last administered on 10/21/16 12:51; Start 10/21/16 at 13:00; Stop 10/21/16 at 13:01 ; Status DC Calcitriol (Rocaltrol) 0.5 mcg DAILY PO Last administered on 10/27/16 08:52; Start 10/21/16 at 17:00 Calcium Carbonate (Oscal) 1,000 mg Q8HR PO Last administered on 10/28/16 06:00 ; Start 10/21/16 at 22:00 Dofetilide (Tikosyn) 500 mcg BID PO ; Start 10/21/16 at 21:00; Stop 10/21/16 at 21:43; Status DC Potassium Chloride (KCl) 40 meq ONCE ONCE PO Last administered on 10/22/16 07 :22; Start 10/22/16 at 06:45; Stop 10/22/16 at 06:46; Status DC Calcium Gluconate 1 gm 1 gm ONCE ONCE IV PUSH ; Start 10/22/16 at 06:45; Stop 10/22/16 at 06:46; Status Cancel Calcium Gluconate/ Sodium Chloride (Calcium Gluconate Inj/NS Inj) 110 ml @ 220 mls/hr ONCE ONCE IV Last administered on 10/22/16 08:19; Start 10/22/16 at 07 :00; Stop 10/22/16 at 07:29; Status DC Hydralazine HCl (Apresoline) 50 mg Q8HR PO Last administered on 10/23/16 06:09 ; Start 10/22/16 at 12:45; Stop 10/23/16 at 11:12; Status DC Collagenase (Santyl Oint) 1 applic DAILY TOPICAL Last administered on 10/27/16 08:51; Start 10/22/16 at 12:45 Linezolid (Zyvox) 600 mg Q12HR PO Last administered on 10/27/16 21:33; Start at 21:00 Hydralazine HCl (Apresoline) 100 mg Q8HR PO Last administered on 10/28/16 06:00 ; Start 10/23/16 at 14:00 Amlodipine Besylate (Norvasc) 5 mg DAILY PO Last administered on 10/27/16 08:52 ; Start 10/24/16 at 10:00 Metoprolol Succinate (Toprol Xl) 25 mg DAILY PO Last administered on 10/27/16 08:53; Start 10/24/16 at 10:00 Furosemide (Lasix Inj) 20 mg BID@09,18 IV PUSH Last administered on 10/27/16 17 :20; Start 10/24/16 at 10:30 Albumin Human (Albumin 25% Inj) 25 gm Q12H IV Last administered on 10/27/16 17: 21; Start 10/24/16 at 18:45; Stop 10/27/16 at 18:19; Status DC Oxycodone HCl (Roxicodone) 20 mg Q4HR PRN PO PAIN SCALE 7 TO 10 Last administered on 10/28/16 02:06; Start 10/25/16 at 16:00 Nitroglycerin (Nitrostat Sl) 0.4 mg ONCE ONCE SL Last administered on 14:27; Start 10/26/16 at 12:30; Stop 10/26/16 at 12:31; Status DC Potassium Chloride (KCl) 20 meq ONCE ONCE PO Last administered on 10/26/16 14 :17; Start 10/26/16 at 12:30; Stop 10/26/16 at 12:31; Status DC Nitroglycerin 0.5 inch 0.5 inch Q6H TOPICAL Last administered on 10/27/16 14:31 ; Start 10/26/16 at 15:00 Heparin Sodium/ Dextrose (Heparin-D5W Inj) 250 ml @ 0 mls/hr TITRATE IV Last administered on 10/27/16 14:37; Start 10/26/16 at 14:15 Morphine Sulfate (Morphine Inj) 2 mg Q3H PRN IV PUSH chest pain Last administered on 10/28/16 02:06; Start 10/26/16 at 14:30 Atorvastatin Calcium (Lipitor) 40 mg HS PO Last administered on 10/27/16 21:33 ; Start 10/26/16 at 21:00 Acetaminophen (Tylenol) 650 mg Q4H PRN PO HEADACHE Last administered on 8/1/ 17at 09:18; Start 10/27/16 at 09:00 A/P Assessment and Plan A/p NSTEMI -Similar chest pain from his prior CO. Previously saw Dr. Coelho but has not seen him for many years. -continue heparin drip , aspirin and metoprolol. Give patient nitroglycerin and morphine for chest pain. -cardiology following; plan for stress test. Acute respiratory failure- resolved -Patient on IV Lasix. Continue a strict ins and outs. Avoid nephrotoxins. -Continue with IV Lasix. Acute kidney injury-secondary to obstructive uropathy S/P left nephrectomy, cystectomy with neobladder -Jean place with improvement in symptoms. -Urology following Dr. Shelton -Per Dr. Shelton to keep catheter in until his creatinines around his baseline 2. -Follow-up nephrology - Strict I/Os Hydronephrosis right kidney -Due to the above. Sepsis -Secondary to the above. Treated. Resolved. Hypertension H/O CABG, cardiac stent -Initially antihypertensive medication was held secondary to hypotension. Continue hydralazine. Continue metoprolol and amlodipine. Adjust accordingly. -Continue ASA 81 mg/day Chronic Left heel [id number] -Infectious disease following. -On Zosyn and PO Linezolid -Cultures growing proteus mirabilis, MRSA, group D enterococcus. -Wound care nurse consulted. UTI -Growing enterococcus faecalis, Klebsiella pneumonia ESBL positive, protease mirabilis -Patient on Zosyn and Zyvox. -Urine cultures and cultures grew negative derek and group D enterococcus. -Management per infectious disease. Right issue wound [id number] -stable S/P C5-C6 fusion, C7 discectomy -Stable. Prophylaxis: GI Prophylaxis DVT Prophylaxis -- on Heparin drip Discharge Planning cardiac work-up in process. Tyler Gallegos MD Oct 28, 2016 08:48
[2016-10-28] MEDS: POLYETHYLENE GLYCOL 17 GM PKG PO SCH (09:00)
[2016-10-28] MEDS: COLLAGENASE OINT 30 GM TUBE TOPICAL SCH (09:00)
[2016-10-28] MEDS: DOCUSATE SODIUM 50 MG/SENNA 8.6 MG TAB PO SCH ×2 (09:00→21:00)
[2016-10-28] MEDS: FUROSEMIDE 20 MG/2 ML VIAL IV PUSH SCH ×2 (09:45→17:10)
[2016-10-28] MEDS: amLODIPine BESYLATE 5 MG TAB PO SCH (09:46)
[2016-10-28] MEDS: ASPIRIN EC 81 MG TABEC PO SCH (09:46)
[2016-10-28] MEDS: LINEZOLID 600 MG TAB PO SCH ×2 (09:46→21:13)
[2016-10-28] MEDS: METOPROLOL SUCCINATE 25 MG EXTENDED RELEASE TAB PO SCH (09:46)
[2016-10-28] MEDS: CALCITRIOL 0.25 MCG CAP PO SCH (09:46)
[2016-10-28 10:59] LABS: APTT (PATIENT) 32.4 SEC (24.3-30.1)
[2016-10-28] MEDS ORDERED: REGADENOSON INJ 0.4 MG/5 ML SYR ONE (11:46)
[2016-10-28] MEDS ORDERED: AMINOPHYLLINE INJ 250 MG/10 ML VIAL ONE (12:15)
[2016-10-28] MEDS: RESP: ALBUTEROL 2.5 MG/IPRATROPIUM 0.5 MG NEB (PRN) INH (14:18)
--- NOTE | 2016-10-28 16:31 | PD.CARD.PN ---
Subjective Subjective Remarks Doing well No chest pain overnight Objective Medications Current Medications Medications (Trade) Dose Ordered Sig/Yosi Route Start Time Stop Time Status Last Admin (Zosyn 2.25 Gm Premix) 50 ml @ 100 mls/hr Q8H IV 10/18/16 17:00 10/28/16 15:40 (Zofran Inj) 4 mg Q6H PRN IV 10/18/16 16:30 10/18/16 18:40 Miscellaneous Information 1 Q361D XX 10/18/16 16:30 10/18/16 16:30 (Chlorhexidine 2% Cloth) Taper DAILY@04 TOP 10/19/16 04:00 10/15/17 03:59 10/20/16 04:00 (Chlorhexidine 2% Cloth) 3 pack UNSCH PRN TOP 10/18/16 16:30 (Maragrita-Colace) 1 tab BID PO 10/18/16 21:00 10/26/16 20:34 (D50w (Syr) Inj) 50 ml UNSCH PRN IV 10/19/16 10:30 (Ecotrin Ec) 81 mg DAILY PO 10/19/16 10:30 10/28/16 09:46 (Miralax) 17 gm DAILY PO 10/20/16 20:00 10/26/16 09:29 (Rocaltrol) 0.5 mcg DAILY PO 10/21/16 17:00 10/28/16 09:46 (Oscal) 1,000 mg Q8HR PO 10/21/16 22:00 10/28/16 13:50 (Santyl Oint) 1 applic DAILY TOPICAL 10/22/16 12:45 10/28/16 09:00 (Zyvox) 600 mg Q12HR PO 10/22/16 21:00 10/28/16 09:46 (Apresoline) 100 mg Q8HR PO 10/23/16 14:00 10/28/16 13:50 (Norvasc) 5 mg DAILY PO 10/24/16 10:00 10/28/16 09:46 (Toprol Xl) 25 mg DAILY PO 10/24/16 10:00 10/28/16 09:46 (Lasix Inj) 20 mg BID@,18 IV PUSH 10/24/16 10:30 10/28/16 09:45 (Roxicodone) 20 mg Q4HR PRN PO 10/25/16 16:00 10/28/16 13:50 Nitroglycerin 0.5 inch 0.5 inch Q6H TOPICAL 10/26/16 15:00 10/28/16 13:50 (Heparin-D5W Inj) 250 ml @ 0 mls/hr TITRATE IV 10/26/16 14:15 10/27/16 14:37 (Morphine Inj) 2 mg Q3H PRN IV PUSH 10/26/16 14:30 10/28/16 13:51 (Lipitor) 40 mg HS PO 10/26/16 21:00 10/27/16 21:33 (Tylenol) 650 mg Q4H PRN PO 10/27/16 09:00 10/27/16 09:18 Vital Signs / I&O Vital Signs Date Time Temp Pulse Resp B/P Pulse Ox O2 Delivery O2 Flow Rate FiO2 10/28/16 16:00 98.5 81 20 158/85 94 10/28/16 16:00 80 10/28/16 15:00 86 10/28/16 14:27 16 10/28/16 14:00 76 10/28/16 14:00 16 10/28/16 12:00 70 10/28/16 11:00 72 10/28/16 10:00 74 10/28/16 09:17 98 Nasal Cannula 3.00 10/28/16 09:00 70 10/28/16 08:00 71 10/28/16 08:00 98.1 70 20 174/99 93 10/28/16 07:44 Nasal Cannula 3.00 10/28/16 07:00 70 10/28/16 06:00 74 10/28/16 05:03 98 Nasal Cannula 3.00 10/28/16 05:00 72 10/28/16 04:00 69 10/28/16 04:00 77 18 161/88 91 10/28/16 03:00 80 10/28/16 02:00 72 10/28/16 01:00 72 10/28/16 00:00 80 18 159/91 93 10/28/16 00:00 75 10/27/16 23:00 70 10/27/16 22:20 Nasal Cannula 3.00 10/27/16 22:00 72 10/27/16 21:00 74 10/27/16 20:00 77 10/27/16 20:00 98.5 86 18 166/95 93 10/27/16 19:00 76 10/27/16 18:00 71 10/27/16 17:50 67 I/O 10/27/16 10/27/16 10/27/16 10/28/16 10/28/16 10/28/16 07:00 15:00 23:00 07:00 15:00 23:00 Intake Total 480 ml 1210 ml 360 ml Output Total 1700 ml 2910 ml 1675 ml Balance -1220 ml -1700 ml -1315 ml Intake Oral 480 ml 960 ml 360 ml IV Total 250 ml Output Urine Total 1700 ml 2860 ml 1600 ml Stool Total 50 ml 75 ml Physical Exam GENERAL: NAD, AAOx3 SKIN: Warm and dry. HEAD: Atraumatic. Normocephalic. EYES: Pupils equal and round. No scleral icterus. No injection or drainage. ENT: No nasal bleeding or discharge. Mucous membranes pink and moist. NECK: Trachea midline. No JVD. CARDIOVASCULAR: Regular rate and rhythm. No murmurs noted RESPIRATORY: No accessory muscle use. Decreased breath sounds bilaterally GASTROINTESTINAL: Abdomen soft, non-tender, nondistended. Hepatic and splenic margins not palpable. MUSCULOSKELETAL: 1+ pitting edema bilaterally NEUROLOGICAL: Awake and alert. No obvious cranial nerve deficits. PSYCHIATRIC: Appropriate mood and affect; insight and judgment normal. Laboratory Laboratory Tests Test 10/27/16 10/28/16 10/28/16 18:14 01:54 10:17 Activated Partial 26.8 SEC 28.0 SEC 32.4 SEC Thromboplast Time Sodium Level 142 MEQ/L Potassium Level 3.5 MEQ/L Chloride Level 104 MEQ/L Carbon Dioxide Level 29.6 MEQ/L Anion Gap 8 MEQ/L Blood Urea Nitrogen 38 MG/DL Creatinine 3.10 MG/DL Estimat Glomerular Filtration 21 ML/MIN Rate Random Glucose 112 MG/DL Calcium Level 7.5 MG/DL Triglycerides Level 127 MG/DL Cholesterol Level 96 MG/DL LDL Cholesterol 35 MG/DL HDL Cholesterol 36.0 MG/DL Cholesterol/HDL Ratio 2.66 RATIO Assessment and Plan Problem List: (1) Elevated troponin (2) CAD (coronary artery disease) (3) Hx of CABG (4) 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 (5) Paraplegia (6) Acute renal failure (7) CKD (chronic kidney disease), stage III Assessment and Plan 1) Chest pain previously Elevated troponin although not a typical rise and fall Possible secondary to original presentation and just continuing down 2) VIJAY on CKD Concern for overall kidney function, slowly back towards baseline 3) Discussed extensively with the patient about his options Stress test (2 day) then if positive will discuss cardiac catheterization If catheterization then understands high risk for kidney failure and need for HD If catheterization then will plan on diagnostic and if intervention is needed will plan on staging Also plan on using Dyevert if catheterization 4) Con't heparin drip/ASA/BB for now Problem Qualifiers (1) 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
--- NOTE | 2016-10-28 17:51 | HHI.NPPN ---
Subjective History of Present Illness 61-year-old male with past medical history of paraplegia, history of partial small-bowel obstruction, hypertension, hyperlipidemia, ischemic heart disease, chronic kidney disease, arthritis, anemia, history of neobladder formation with neurogenic bladder, left nephrectomy who was admitted with complaint of shortness of breath. The patient mainly came with shortness of breath and he was found to be severely acidotic with a very low pH of 6.99 and bicarb was very low and very high BUN and creatinine. The patient previously has a history of chronic kidney disease, although is not following with any calculus teacher. His creatinine was 2.1-2.2 which was his baseline when he was admitted last month. Additional Remarks Patient is alert, no chest pain and breathing is better. Review of Systems General Constitutional: Fatigue Respiratory Lungs: SOB Cardiovascular Cardiac: BAEZ Objective Data Data 10/27/16 10/28/16 19:00 07:00 Intake Total 1210 ml 360 ml Output Total 2910 ml 1675 ml Balance -1700 ml -1315 ml Intake Oral 960 ml 360 ml IV Total 250 ml Output Urine Total 2860 ml 1600 ml Stool Total 50 ml 75 ml Vital Signs Date Time Temp Pulse Resp B/P Pulse Ox O2 Delivery O2 Flow Rate FiO2 10/28/16 16:00 98.5 81 20 158/85 94 10/28/16 16:00 80 10/28/16 15:00 86 10/28/16 14:27 16 10/28/16 14:00 76 10/28/16 14:00 16 10/28/16 12:00 70 10/28/16 11:00 72 10/28/16 10:00 74 10/28/16 09:17 98 Nasal Cannula 3.00 10/28/16 09:00 70 10/28/16 08:00 71 10/28/16 08:00 98.1 70 20 174/99 93 10/28/16 07:44 Nasal Cannula 3.00 10/28/16 07:00 70 10/28/16 06:00 74 10/28/16 05:03 98 Nasal Cannula 3.00 10/28/16 05:00 72 10/28/16 04:00 69 10/28/16 04:00 77 18 161/88 91 10/28/16 03:00 80 10/28/16 02:00 72 10/28/16 01:00 72 10/28/16 00:00 80 18 159/91 93 10/28/16 00:00 75 10/27/16 23:00 70 10/27/16 22:20 Nasal Cannula 3.00 10/27/16 22:00 72 10/27/16 21:00 74 10/27/16 20:00 77 10/27/16 20:00 98.5 86 18 166/95 93 10/27/16 19:00 76 10/27/16 18:00 71 -: 10/27/16 0600 10/28/16 0154 Physical Exam General Appearance: Well Nourished, No Acute Distress, Comfortable Eyes Eye Exam: Pupils Equal Throat Throat Exam: Oral Mucosa [place] & Moist Neck Neck Exam: Neck Supple Pulmonary Resp Exam: Breath Sounds Equal, No Distress, Decreased Bases Cardiology CV Exam: Regular, Normal Sinus Rhythm Gastrointestinal/Abdomen GI Exam: Soft, Non-Tender, Bowel Sounds Present Extremeties Extremities Exam: Trace Edema Neurologic Neuro Exam: Alert, Awake, Oriented Psychiatric Psych Exam: Appropriate Responses Assessment/Plan Assessment Summary: VIJAY/Acute Renal Failure, CKD Stage III Electrolyte Assessment: Hypocalcemia, Hypokalemia, Metabolic Acidosis Problem List: (1) Leukocytosis (2) Acidemia (3) Respiratory distress (4) Paraplegia (5) UTI (urinary tract infection) (6) CKD (chronic kidney disease), stage III (7) Acute renal failure Plan Patient has advance stage 3 chronic kidney disease, and develop VIJAY, with severe metabolic acidosis. Also has UTI and obstructive uropathy. Creatinine is slowly improving.Lasix was given due to edema Growing enterococcus faecalis, Klebsiella pneumonia ESBL positive, protease mirabilis Patient on Zosyn and Zyvox. Lasix 20 mg IV Q 12 Now has increase Trop I. Started on IV Heparin. Stress test in progress. Creatinine continue to improve. Problem Qualifiers (1) UTI (urinary tract infection): Lynsey Goldman MD Oct 28, 2016 17:51
[2016-10-28] MEDS: ATORVASTATIN 40 MG TAB PO SCH (21:14)
[2016-10-29] VITALS (18 sets, daily range): BP systolic 138–156; BP diastolic 83–94; PULSE 72–86; RESP 18–20; TEMP 97.9–99; O2SAT 90–98
[2016-10-29 00:45] LABS: APTT (PATIENT) 34.3 SEC (24.3-30.1)
[2016-10-29] MEDS: PIPERACIL-TAZO 2.25 GM PREMIX 50 ML IV SCH ×2 (01:20→11:58)
[2016-10-29] MEDS: RESP: ALBUTEROL 2.5 MG/IPRATROPIUM 0.5 MG NEB (PRN) INH ×2 (01:37→21:26)
[2016-10-29] MEDS: MORPHINE SULFATE 4 MG/ML INJ IV PUSH PRN ×2 (01:38→21:03)
[2016-10-29] MEDS: HEPARIN-D5W INJ 250 ML IV SCH (01:44)
[2016-10-29] MEDS: NITROGLYCERIN 2% OINT 1 GM PACKET TOPICAL SCH ×4 (03:00→21:04)
[2016-10-29] MEDS: CHLORHEXIDINE GLUCONATE 2 % 1 PACK (2 CLOTHS) TOP SCH (04:00)
[2016-10-29] MEDS: CALCIUM CARBONATE 1.25 GM (CA 500 MG) TAB PO SCH ×3 (04:57→21:01)
[2016-10-29] MEDS: hydrALAZINE HCL 100 MG TAB PO SCH ×3 (04:57→21:04)
[2016-10-29 06:19] LABS: HEMATOCRIT 27.2 % (39.0-51.0); MEAN CELL VOLUME 82.3 FL (80.0-100.0); MEAN CORPUSCULAR HEMOGLOBIN 25.4 PG (27.0-34.0); MEAN CORPUSCULAR HGB CONC 30.9 % (32.0-36.0); PLATELET COUNT 102 TH/MM3 (150-450); RED CELL DISTRIBUTION WIDTH 19.9 % (11.6-17.2); REVIEW FLAG FINAL; WHITE BLOOD COUNT 9.3 TH/MM3 (4.0-11.0)
[2016-10-29 06:54] LABS: BICARBONATE 28.1 MEQ/L (21.0-32.0); POTASSIUM 3.6 MEQ/L (3.5-5.1)
[2016-10-29] MEDS: POLYETHYLENE GLYCOL 17 GM PKG PO SCH (09:00)
[2016-10-29] MEDS: COLLAGENASE OINT 30 GM TUBE TOPICAL SCH (09:00)
[2016-10-29 10:32] LABS: APTT (PATIENT) 38.5 SEC (24.3-30.1)
--- NOTE | 2016-10-29 11:28 | RADRPT ---
EXAM DATE/TIME: 10/28/2016 12:22 [place] COMPARISON: No previous studies available for comparison. INDICATIONS : Elevated troponins. Coronary artery disease. DOSE: 29.7 mCi Tc99m Myoview at stress. 30.3 mCi Tc99m Myoview at rest. 0.4 mg Lexiscan STRESS SYMPTOMS: Dyspnea and chest pressure. MEDICATIONS: 1.) 100 mg Aminophylline IV EJECTION FRACTION: 57% MEDICAL HISTORY : Myocardial infarction. Hypercholesterolemia. Renal failure, chronic. Hypertension. SURGICAL HISTORY : CABG Coronary artery stent. Nephrectomy, left. ENCOUNTER: Initial ACUITY: 1 day PAIN SCALE: 0/10 LOCATION: TECHNIQUE: The patient underwent pharmacologic stress with infusion of prescribed dose. Continuous ECG tracing was monitored during stress. Gated SPECT imaging was performed after stress and conventional SPECT i maging was performed at rest. The examination was performed on a SPECT/CT scanner, both attenuation and non-corrected datasets were reviewed. FINDINGS: DISTRIBUTION: The maximum perfused segment at stress is in the anterior lateral wall. PERFUSION STUDY: The pattern of perfusion at stress demonstrates fixed perfusion defects especially in the inferior an d lateral wall with GATED STUDY: There is intact wall motion and thickening without hypokinetic or dyskinetic segments. CONCLUSION: 1. Fixed perfusion defects in the inferior and lateral wall most characteristic of prior myocardial i nfarction. No significant reversibility to suggest ischemia. 2. Ejection fraction within normal limits at 57%. RISK CATEGORY: Intermediate (1-3% Annual Mortality Rate) Nura Ramirez MD on October 29, 2016 at 11:22 Board Certified Radiologist. This report was verified electronically.
[2016-10-29] MEDS: DOCUSATE SODIUM 50 MG/SENNA 8.6 MG TAB PO SCH ×2 (11:57→21:01)
[2016-10-29] MEDS: CALCITRIOL 0.25 MCG CAP PO SCH (11:57)
[2016-10-29] MEDS: ATORVASTATIN 40 MG TAB PO SCH (11:57)
[2016-10-29] MEDS: LINEZOLID 600 MG TAB PO SCH ×2 (11:57→21:01)
[2016-10-29] MEDS: FUROSEMIDE 20 MG/2 ML VIAL IV PUSH SCH ×2 (11:58→17:23)
[2016-10-29] MEDS: ASPIRIN EC 81 MG TABEC PO SCH (11:58)
[2016-10-29] MEDS: amLODIPine BESYLATE 5 MG TAB PO SCH (11:58)
--- NOTE | 2016-10-29 11:59 | HHI.PR ---
Subjective Remarks in no acute distress. denies chest pain. has some pain to right hip area. no fever. Objective Vitals Vital Signs Date Time Temp Pulse Resp B/P Pulse Ox O2 Delivery O2 Flow Rate FiO2 10/29/16 10:29 96 Nasal Cannula 3.00 10/29/16 08:00 72 10/29/16 08:00 98.1 80 18 156/94 94 10/29/16 07:00 Nasal Cannula 3.00 40 10/29/16 06:00 86 10/29/16 05:01 78 20 152/90 90 10/29/16 05:00 82 10/29/16 04:00 80 10/29/16 03:00 84 10/29/16 02:00 80 10/29/16 01:00 98.6 82 18 138/83 91 10/29/16 01:00 80 10/29/16 00:00 81 10/28/16 23:00 78 10/28/16 22:00 78 10/28/16 21:00 74 10/28/16 20:00 98.7 87 20 153/86 91 10/28/16 20:00 76 10/28/16 19:00 94 Nasal Cannula 3.00 10/28/16 19:00 76 10/28/16 18:00 74 10/28/16 17:00 72 10/28/16 16:00 98.5 81 20 158/85 94 10/28/16 16:00 80 10/28/16 15:00 86 10/28/16 14:27 16 10/28/16 14:00 76 10/28/16 14:00 16 10/28/16 12:00 70 I/O 10/28/16 10/28/16 10/28/16 10/29/16 10/29/16 10/29/16 07:00 15:00 23:00 07:00 15:00 23:00 Intake Total 360 ml 790 ml 765 ml Output Total 1675 ml 2800 ml 2150 ml Balance -1315 ml -2010 ml -1385 ml Intake Oral 360 ml 620 ml 600 ml IV Total 170 ml 165 ml Output Urine Total 1600 ml 2600 ml 1900 ml Stool Total 75 ml 200 ml 250 ml Result Diagram: 10/29/16 0607 10/29/16 0607 Imaging Last Impressions Myocardial Perfusion Scan Nuc Med 10/28/16 0000 Signed Impressions: Service Date/Time: Friday, October 28, 2016 12:22 - CONCLUSION: 1. Fixed perfusion defects in the inferior and lateral wall most characteristic of prior myocardial infarction. No significant reversibility to suggest ischemia. 2. Ejection fraction within normal limits at 57%%. RISK CATEGORY: Intermediate (1-3%% Annual Mortality Rate) Nura Ramirez MD Chest X-Ray 10/26/16 0000 Signed Impressions: Service Date/Time: Wednesday, October 26, 2016 12:26 - CONCLUSION: 1. Cardia megaly with mild positive fluid balance. 2. Bibasilar airspace disease and questionable trace right pleural effusion. Jeremiah Caba MD Foot X-Ray 10/23/16 0000 Signed Impressions: Service Date/Time: Sunday, October 23, 2016 17:13 - CONCLUSION: Chronic changes and no definite signs of osteomyelitis. Deborah Dean MD Renal Ultrasound 10/18/16 0000 Signed Impressions: Service Date/Time: Tuesday, October 18, 2016 15:27 - CONCLUSION: 1. Hydronephrosis of the right kidney. 2. Cystectomy with neobladder. Alok Upton MD Abdomen/Pelvis CT 10/18/16 0000 Signed Impressions: Service Date/Time: Tuesday, October 18, 2016 16:07 - CONCLUSION: 1. There is hydronephrosis of the right kidney similar to previous study with neobladder and ileostomy. 2. 3 mm nonobstructing right renal calculus. 3. Left nephrectomy. Alok Upton MD Objective Remarks GENERAL: This is a well-nourished, well-developed patient, in no apparent distress. CARDIOVASCULAR: Regular rate and regular rhythm without murmurs, gallops, or rubs. RESPIRATORY: Clear to auscultation. Breath sounds equal bilaterally. No wheezes , rales, or rhonchi. GASTROINTESTINAL: Abdomen soft, non-tender, nondistended. Normal, active bowel sounds MUSCULOSKELETAL: Extremities without clubbing, cyanosis, or edema. NEURO: awake and alert. skin; ulcer on the left heel Medications and IVs Current Medications Sodium Bicarbonate 50 meq 50 meq ONCE ONCE IV PUSH Last administered on t 15:34; Start 10/18/16 at 14:30; Stop 10/18/16 at 14:31; Status DC Sodium Bicarbonate/ Dextrose (Sodium Bicarbonate 8.4% Inj/D5W 1000 ml Inj) 1, 150 ml @ 150 mls/hr Q7H40M IV Last administered on 10/20/16 01:17; Start at 15:00; Stop 10/20/16 at 16:33; Status DC Dextrose (D50w (Vial) Inj) 25 ml UNSCH PRN IV PUSH HYPOGLYCEMIA-SEE COMMENTS; Start 10/18/16 at 14:30; Stop 10/19/16 at 10:29; Status DC Insulin Human Regular (NovoLIN R SUPPLEMENTAL SCALE) 1 ACHS AND 3AM SQ ; Start 10/18/16 at 16:00; Stop 10/19/16 at 10:34; Status DC Sodium Bicarbonate 150 meq 150 meq ONCE ONCE IV PUSH Last administered on 10/18 15:20; Start 10/18/16 at 14:45; Stop 10/18/16 at 14:46; Status DC Piperacillin Sod/ Tazobactam Sod (Zosyn 2.25 Gm Premix) 50 ml @ 100 mls/hr Q8H IV Last administered on 10/29/16 01:20; Start 10/18/16 at 17:00 Ondansetron HCl (Zofran Inj) 4 mg Q6H PRN IV NAUSEA OR VOMITING Last administered on 10/18/16 18:40; Start 10/18/16 at 16:30 Albuterol/ Ipratropium (Duoneb Neb) 1 ampule Q2HR NEB PRN INH WHEEZING Last administered on 10/29/16 01:37; Start 10/18/16 at 16:30 Heparin Sodium (Porcine) (Heparin Inj) 5,000 units Q12H SQ Last administered on 10/25/16 17:22; Start 10/18/16 at 18:00; Stop 10/26/16 at 14:05; Status DC Miscellaneous Information 1 Q361D XX Last administered on 10/18/16 16:30; Start 10/18/16 at 16:30 Chlorhexidine Gluconate (Chlorhexidine 2% Cloth) Taper DAILY@04 TOP Last administered on 10/20/16 04:00; Start 10/19/16 at 04:00; Stop 10/15/17 at 03:59 Chlorhexidine Gluconate (Chlorhexidine 2% Cloth) 3 pack UNSCH PRN TOP HYGIENIC CARE; Start 10/18/16 at 16:30 Senna/Docusate Sodium (Margarita-Colace) 1 tab BID PO Last administered on 20:34; Start 10/18/16 at 21:00 Calcium Acetate 1334 mg 1,334 mg TID PO Last administered on 10/21/16 09:56; Start 10/19/16 at 09:00; Stop 10/21/16 at 16:52; Status DC Calcium Gluconate/ Dextrose (Calcium Gluconate Inj/D5W 100 ml Inj) 120 ml @ 120 mls/hr ONCE ONCE IV Last administered on 10/19/16 00:54; Start 10/19/16 at 01:00; Stop 10/19/16 at 01:59; Status DC Sodium Bicarbonate (Sodium Bicarbonate 8.4% Inj) 50 meq STK-MED ONCE .ROUTE ; Start 10/19/16 at 05:42; Stop 10/19/16 at 05:43; Status DC Sodium Bicarbonate 100 meq 100 meq NOW ONCE IV PUSH Last administered on 05:51; Start 10/19/16 at 06:00; Stop 10/19/16 at 06:01; Status DC Potassium Chloride 100 ml @ 50 mls/hr Q2H IV Last administered on 10/19/16 13 :22; Start 10/19/16 at 10:00; Stop 10/19/16 at 13:59; Status DC Calcium Gluconate 2 gm/Sodium Chloride 120 ml @ 120 mls/hr ONCE ONCE IV Last administered on 10/19/16 10:13; Start 10/19/16 at 10:30; Stop 10/19/16 at 11:29 ; Status DC Magnesium Sulfate/ Dextrose 100 ml @ 100 mls/hr Q1H IV Last administered on 11:25; Start 10/19/16 at 10:00; Stop 10/19/16 at 11:59; Status DC Cefepime HCl 2000 mg/Sodium Chloride 100 ml @ 200 mls/hr Q8H IV ; Start at 11:00; Stop 10/19/16 at 11:00; Status DC Sodium Chloride (NS 500 ml Inj) 500 ml @ 500 mls/hr BOLUS ONCE IV Last administered on 10/19/16 10:15; Start 10/19/16 at 10:00; Stop 10/19/16 at 10:59 ; Status DC Dextrose (D50w (Syr) Inj) 50 ml UNSCH PRN IV HYPOGLYCEMIA-SEE COMMENTS; Start 10/19/16 at 10:30 Glucagon (Glucagon Inj) 1 mg UNSCH PRN OTHER HYPOGLYCEMIA-SEE COMMENTS; Start 10/19/16 at 10:00; Stop 10/24/16 at 09:55; Status DC Insulin Aspart (NovoLOG SUPPLEMENTAL SCALE) 1 ACHS SLIDING SCALE SQ Last administered on 10/20/16 21:06; Start 10/19/16 at 11:00; Stop 10/26/16 at 15:49 ; Status DC Aspirin 81 mg 81 mg DAILY PO Last administered on 10/28/16 09:46; Start at 10:30 Linezolid (Zyvox 600 Mg Premix) 300 ml @ 300 mls/hr Q12H IV Last administered on 10/22/16 11:56; Start 10/19/16 at 11:00; Stop 10/22/16 at 13:55; Status DC Potassium Bicarb/ Potassium Chloride 50 meq 50 meq NOW ONCE PO Last administered on 10/19/16 10:44; Start 10/19/16 at 10:45; Stop 10/19/16 at 10:46 ; Status DC Calcium Gluconate 2 gm/Sodium Chloride 120 ml @ 120 mls/hr NOW IV Last administered on 10/19/16 21:47; Start 10/19/16 at 21:45; Stop 10/19/16 at 22:44 ; Status DC Potassium Chloride 100 ml @ 50 mls/hr Q2H IV Last administered on 10/20/16 01 :19; Start 10/19/16 at 22:00; Stop 10/20/16 at 01:59; Status DC Calcium Gluconate 2 gm/Sodium Chloride 120 ml @ 120 mls/hr NOW ONCE IV Last administered on 10/20/16 10:27; Start 10/20/16 at 10:00; Stop 10/20/16 at 10:59 ; Status DC Sodium Chloride (NS 1000 ml Inj) 1,000 ml @ 100 mls/hr Q10H IV Last administered on 10/23/16 14:45; Start 10/20/16 at 16:45; Stop 10/24/16 at 09:55 ; Status DC Polyethylene Glycol (Miralax) 17 gm DAILY PO Last administered on 10/26/16 09: 29; Start 10/20/16 at 20:00 Oxycodone HCl (Roxicodone) 10 mg Q6H PRN PO PAIN SCALE 7 TO 10 Last administered on 10/25/16 09:40; Start 10/21/16 at 10:15; Stop 10/25/16 at 15:33 ; Status DC Potassium Bicarb/ Potassium Chloride (K-Lyte Cl Eff) 50 meq NOW ONCE PO Last administered on 10/21/16 12:51; Start 10/21/16 at 13:00; Stop 10/21/16 at 13:01 ; Status DC Calcitriol (Rocaltrol) 0.5 mcg DAILY PO Last administered on 10/28/16 09:46; Start 10/21/16 at 17:00 Calcium Carbonate (Oscal) 1,000 mg Q8HR PO Last administered on 10/29/16 04:57 ; Start 10/21/16 at 22:00 Dofetilide (Tikosyn) 500 mcg BID PO ; Start 10/21/16 at 21:00; Stop 10/21/16 at 21:43; Status DC Potassium Chloride (KCl) 40 meq ONCE ONCE PO Last administered on 10/22/16 07 :22; Start 10/22/16 at 06:45; Stop 10/22/16 at 06:46; Status DC Calcium Gluconate 1 gm 1 gm ONCE ONCE IV PUSH ; Start 10/22/16 at 06:45; Stop 10/22/16 at 06:46; Status Cancel Calcium Gluconate/ Sodium Chloride (Calcium Gluconate Inj/NS Inj) 110 ml @ 220 mls/hr ONCE ONCE IV Last administered on 10/22/16 08:19; Start 10/22/16 at 07 :00; Stop 10/22/16 at 07:29; Status DC Hydralazine HCl (Apresoline) 50 mg Q8HR PO Last administered on 10/23/16 06:09 ; Start 10/22/16 at 12:45; Stop 10/23/16 at 11:12; Status DC Collagenase (Santyl Oint) 1 applic DAILY TOPICAL Last administered on 10/28/16 09:00; Start 10/22/16 at 12:45 Linezolid (Zyvox) 600 mg Q12HR PO Last administered on 10/28/16 21:13; Start at 21:00 Hydralazine HCl (Apresoline) 100 mg Q8HR PO Last administered on 10/29/16 04:57 ; Start 10/23/16 at 14:00 Amlodipine Besylate (Norvasc) 5 mg DAILY PO Last administered on 10/28/16 09:46 ; Start 10/24/16 at 10:00 Metoprolol Succinate (Toprol Xl) 25 mg DAILY PO Last administered on 10/28/16 09:46; Start 10/24/16 at 10:00 Furosemide (Lasix Inj) 20 mg BID@09,18 IV PUSH Last administered on 10/28/16 17 :10; Start 10/24/16 at 10:30 Albumin Human (Albumin 25% Inj) 25 gm Q12H IV Last administered on 10/27/16 17: 21; Start 10/24/16 at 18:45; Stop 10/27/16 at 18:19; Status DC Oxycodone HCl (Roxicodone) 20 mg Q4HR PRN PO PAIN SCALE 7 TO 10 Last administered on 10/29/16 04:57; Start 10/25/16 at 16:00 Nitroglycerin (Nitrostat Sl) 0.4 mg ONCE ONCE SL Last administered on 14:27; Start 10/26/16 at 12:30; Stop 10/26/16 at 12:31; Status DC Potassium Chloride (KCl) 20 meq ONCE ONCE PO Last administered on 10/26/16 14 :17; Start 10/26/16 at 12:30; Stop 10/26/16 at 12:31; Status DC Nitroglycerin 0.5 inch 0.5 inch Q6H TOPICAL Last administered on 10/28/16 21:00 ; Start 10/26/16 at 15:00 Heparin Sodium/ Dextrose (Heparin-D5W Inj) 250 ml @ 0 mls/hr TITRATE IV Last administered on 10/29/16 01:44; Start 10/26/16 at 14:15 Morphine Sulfate (Morphine Inj) 2 mg Q3H PRN IV PUSH chest pain Last administered on 10/29/16 01:38; Start 10/26/16 at 14:30 Atorvastatin Calcium (Lipitor) 40 mg HS PO Last administered on 10/28/16 21:14 ; Start 10/26/16 at 21:00 Acetaminophen (Tylenol) 650 mg Q4H PRN PO HEADACHE Last administered on 09:18; Start 10/27/16 at 09:00 Regadenoson (Lexiscan Inj) 0.4 mg STK-MED ONCE .ROUTE Last administered on 11:46; Start 10/28/16 at 11:46; Stop 10/28/16 at 11:47; Status DC Aminophylline (Aminophylline Inj) 250 mg STK-MED ONCE .ROUTE Last administered on 10/28/16 12:15; Start 10/28/16 at 12:15; Stop 10/28/16 at 12:16; Status DC A/P Assessment and Plan A/p NSTEMI -Similar chest pain from his prior IA. Previously saw Dr. Coelho but has not seen him for many years. -continue heparin drip , aspirin and metoprolol. -stress test with no reversible ischemia -cardiology following; plan for stress test. Acute respiratory failure- resolved -Patient on IV Lasix. Continue a strict ins and outs. Avoid nephrotoxins. -Continue with IV Lasix. Acute kidney injury-secondary to obstructive uropathy S/P left nephrectomy, cystectomy with neobladder -Jean place with improvement in symptoms. -Urology following Dr. Shelton -Per Dr. Shelton to keep catheter in until his creatinines around his baseline 2. -Follow-up nephrology - Strict I/Os Hydronephrosis right kidney -Due to the above. Sepsis -Secondary to the above. Treated. Resolved. Hypertension H/O CABG, cardiac stent -Initially antihypertensive medication was held secondary to hypotension. Continue hydralazine. Continue metoprolol and amlodipine. Adjust accordingly. -Continue ASA 81 mg/day Chronic Left heel [id number] -Infectious disease following. -On Zosyn and PO Linezolid -Cultures growing proteus mirabilis, MRSA, group D enterococcus. -Wound care nurse consulted. UTI -Growing enterococcus faecalis, Klebsiella pneumonia ESBL positive, protease mirabilis -Patient on Zosyn and Zyvox. -Urine cultures and cultures grew negative derek and group D enterococcus. -Management per infectious disease. Right issue wound [id number] -stable S/P C5-C6 fusion, C7 discectomy -Stable. Prophylaxis: GI Prophylaxis DVT Prophylaxis -- on Heparin drip Discharge Planning when cleared by consultants. case management to assist with dc planning- home vs rehab. Tyler Gallegos MD Oct 29, 2016 11:59
--- NOTE | 2016-10-29 12:13 | PD.CARD.PN ---
Subjective Subjective Remarks Patient seen this morning, no events overnight No chest pain Objective Medications Current Medications Medications (Trade) Dose Ordered Sig/Yosi Route Start Time Stop Time Status Last Admin (Zosyn 2.25 Gm Premix) 50 ml @ 100 mls/hr Q8H IV 10/18/16 17:00 10/29/16 11:58 (Zofran Inj) 4 mg Q6H PRN IV 10/18/16 16:30 10/18/16 18:40 Miscellaneous Information 1 Q361D XX 10/18/16 16:30 10/18/16 16:30 (Chlorhexidine 2% Cloth) Taper DAILY@04 TOP 10/19/16 04:00 10/15/17 03:59 10/20/16 04:00 (Chlorhexidine 2% Cloth) 3 pack UNSCH PRN TOP 10/18/16 16:30 (Margarita-Colace) 1 tab BID PO 10/18/16 21:00 10/29/16 11:57 (D50w (Syr) Inj) 50 ml UNSCH PRN IV 10/19/16 10:30 (Ecotrin Ec) 81 mg DAILY PO 10/19/16 10:30 10/29/16 11:58 (Miralax) 17 gm DAILY PO 10/20/16 20:00 10/29/16 09:00 (Rocaltrol) 0.5 mcg DAILY PO 10/21/16 17:00 10/29/16 11:57 (Oscal) 1,000 mg Q8HR PO 10/21/16 22:00 10/29/16 04:57 (Santyl Oint) 1 applic DAILY TOPICAL 10/22/16 12:45 10/29/16 09:00 (Zyvox) 600 mg Q12HR PO 10/22/16 21:00 10/29/16 11:57 (Apresoline) 100 mg Q8HR PO 10/23/16 14:00 10/29/16 04:57 (Norvasc) 5 mg DAILY PO 10/24/16 10:00 10/29/16 11:58 (Toprol Xl) 25 mg DAILY PO 10/24/16 10:00 10/28/16 09:46 (Lasix Inj) 20 mg BID@,18 IV PUSH 10/24/16 10:30 10/29/16 11:58 (Roxicodone) 20 mg Q4HR PRN PO 10/25/16 16:00 10/29/16 04:57 Nitroglycerin 0.5 inch 0.5 inch Q6H TOPICAL 10/26/16 15:00 10/28/16 21:00 (Heparin-D5W Inj) 250 ml @ 0 mls/hr TITRATE IV 10/26/16 14:15 10/29/16 01:44 (Morphine Inj) 2 mg Q3H PRN IV PUSH 10/26/16 14:30 10/29/16 01:38 (Lipitor) 40 mg HS PO 10/26/16 21:00 10/29/16 11:57 (Tylenol) 650 mg Q4H PRN PO 10/27/16 09:00 10/27/16 09:18 Vital Signs / I&O Vital Signs Date Time Temp Pulse Resp B/P Pulse Ox O2 Delivery O2 Flow Rate FiO2 10/29/16 10:29 96 Nasal Cannula 3.00 10/29/16 08:00 72 10/29/16 08:00 98.1 80 18 156/94 94 10/29/16 07:00 Nasal Cannula 3.00 40 10/29/16 06:00 86 10/29/16 05:01 78 20 152/90 90 10/29/16 05:00 82 10/29/16 04:00 80 10/29/16 03:00 84 10/29/16 02:00 80 10/29/16 01:00 98.6 82 18 138/83 91 10/29/16 01:00 80 10/29/16 00:00 81 10/28/16 23:00 78 10/28/16 22:00 78 10/28/16 21:00 74 10/28/16 20:00 98.7 87 20 153/86 91 10/28/16 20:00 76 10/28/16 19:00 94 Nasal Cannula 3.00 10/28/16 19:00 76 10/28/16 18:00 74 10/28/16 17:00 72 10/28/16 16:00 98.5 81 20 158/85 94 10/28/16 16:00 80 10/28/16 15:00 86 10/28/16 14:27 16 10/28/16 14:00 76 10/28/16 14:00 16 I/O 10/28/16 10/28/16 10/28/16 10/29/16 10/29/16 10/29/16 07:00 15:00 23:00 07:00 15:00 23:00 Intake Total 360 ml 790 ml 765 ml Output Total 1675 ml 2800 ml 2150 ml Balance -1315 ml -2010 ml -1385 ml Intake Oral 360 ml 620 ml 600 ml IV Total 170 ml 165 ml Output Urine Total 1600 ml 2600 ml 1900 ml Stool Total 75 ml 200 ml 250 ml Physical Exam GENERAL: NAD, AAOx3 SKIN: Warm and dry. HEAD: Atraumatic. Normocephalic. EYES: Pupils equal and round. No scleral icterus. No injection or drainage. ENT: No nasal bleeding or discharge. Mucous membranes pink and moist. NECK: Trachea midline. No JVD. CARDIOVASCULAR: Regular rate and rhythm. No murmurs noted RESPIRATORY: No accessory muscle use. Decreased breath sounds bilaterally GASTROINTESTINAL: Abdomen soft, non-tender, nondistended. Hepatic and splenic margins not palpable. MUSCULOSKELETAL: 1+ pitting edema bilaterally NEUROLOGICAL: Awake and alert. No obvious cranial nerve deficits. PSYCHIATRIC: Appropriate mood and affect; insight and judgment normal. Laboratory Laboratory Tests Test 10/28/16 10/29/16 10/29/16 23:16 06:07 09:52 Activated Partial 34.3 SEC 38.5 SEC Thromboplast Time White Blood Count 9.3 TH/MM3 Red Blood Count 3.30 MIL/MM3 Hemoglobin 8.4 GM/DL Hematocrit 27.2 % Mean Corpuscular Volume 82.3 FL Mean Corpuscular Hemoglobin 25.4 PG Mean Corpuscular Hemoglobin 30.9 % Concent Red Cell Distribution Width 19.9 % Platelet Count 102 TH/MM3 Mean Platelet Volume 6.8 FL Sodium Level 141 MEQ/L Potassium Level 3.6 MEQ/L Chloride Level 102 MEQ/L Carbon Dioxide Level 28.1 MEQ/L Anion Gap 11 MEQ/L Blood Urea Nitrogen 36 MG/DL Creatinine 3.14 MG/DL Estimat Glomerular Filtration 20 ML/MIN Rate Random Glucose 163 MG/DL Calcium Level 8.1 MG/DL Assessment and Plan Problem List: (1) Elevated troponin (2) CAD (coronary artery disease) (3) Hx of CABG (4) 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 (5) Paraplegia (6) Acute renal failure (7) CKD (chronic kidney disease), stage III Assessment and Plan 1) Chest pain previously Elevated troponin although not a typical rise and fall Possible secondary to original presentation and just continuing down Stress test showing infarction but no ischemic areas, con't medical management Con't ASA Will increase BB therapy 2) VIJAY on CKD Concern for overall kidney function, slowly back towards baseline 3) Will D/C heparin drip Problem Qualifiers (1) 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
--- NOTE | 2016-10-29 13:01 | HHI.NPPN ---
Subjective History of Present Illness 61-year-old male with past medical history of paraplegia, history of partial small-bowel obstruction, hypertension, hyperlipidemia, ischemic heart disease, chronic kidney disease, arthritis, anemia, history of neobladder formation with neurogenic bladder, left nephrectomy who was admitted with complaint of shortness of breath. The patient mainly came with shortness of breath and he was found to be severely acidotic with a very low pH of 6.99 and bicarb was very low and very high BUN and creatinine. The patient previously has a history of chronic kidney disease, although is not following with any lab manager. His creatinine was 2.1-2.2 which was his baseline when he was admitted last month. Additional Remarks Patient is alert, no chest pain and breathing is better, no abd. pain. Review of Systems General Constitutional: Fatigue Respiratory Lungs: SOB Cardiovascular Cardiac: BAEZ Objective Data Data 10/28/16 10/29/16 19:00 07:00 Intake Total 790 ml 765 ml Output Total 2800 ml 2150 ml Balance -2010 ml -1385 ml Intake Oral 620 ml 600 ml IV Total 170 ml 165 ml Output Urine Total 2600 ml 1900 ml Stool Total 200 ml 250 ml Vital Signs Date Time Temp Pulse Resp B/P Pulse Ox O2 Delivery O2 Flow Rate FiO2 10/29/16 10:29 96 Nasal Cannula 3.00 10/29/16 08:00 72 10/29/16 08:00 98.1 80 18 156/94 94 10/29/16 07:00 Nasal Cannula 3.00 40 10/29/16 06:00 86 10/29/16 05:01 78 20 152/90 90 10/29/16 05:00 82 10/29/16 04:00 80 10/29/16 03:00 84 10/29/16 02:00 80 10/29/16 01:00 98.6 82 18 138/83 91 10/29/16 01:00 80 10/29/16 00:00 81 10/28/16 23:00 78 10/28/16 22:00 78 10/28/16 21:00 74 10/28/16 20:00 98.7 87 20 153/86 91 10/28/16 20:00 76 10/28/16 19:00 94 Nasal Cannula 3.00 10/28/16 19:00 76 10/28/16 18:00 74 10/28/16 17:00 72 10/28/16 16:00 98.5 81 20 158/85 94 10/28/16 16:00 80 10/28/16 15:00 86 10/28/16 14:27 16 10/28/16 14:00 76 10/28/16 14:00 16 -: 10/29/16 0607 10/29/16 0607 Physical Exam General Appearance: Well Nourished, No Acute Distress, Comfortable Eyes Eye Exam: Pupils Equal Throat Throat Exam: Oral Mucosa [place] & Moist Neck Neck Exam: Neck Supple Pulmonary Resp Exam: Breath Sounds Equal, No Distress, Decreased Bases Cardiology CV Exam: Regular, Normal Sinus Rhythm Gastrointestinal/Abdomen GI Exam: Soft, Non-Tender, Bowel Sounds Present Extremeties Extremities Exam: Trace Edema Neurologic Neuro Exam: Alert, Awake, Oriented Psychiatric Psych Exam: Appropriate Responses Assessment/Plan Assessment Summary: VIJAY/Acute Renal Failure, CKD Stage III Electrolyte Assessment: Hypocalcemia, Hypokalemia, Metabolic Acidosis Problem List: (1) Leukocytosis (2) Acidemia (3) Respiratory distress (4) Paraplegia (5) UTI (urinary tract infection) (6) CKD (chronic kidney disease), stage III (7) Acute renal failure Plan Patient has advance stage 3 chronic kidney disease, and develop VIJAY, with severe metabolic acidosis. Also has UTI and obstructive uropathy. Creatinine is slowly improving.Lasix was given due to edema Growing enterococcus faecalis, Klebsiella pneumonia ESBL positive, protease mirabilis Patient on Zosyn and Zyvox. Lasix 20 mg IV Q 12 Now has increase Trop I. Started on IV Heparin. Stress test is negative for ongoing ischemia. Creatinine is stable, his baseline Creatinine is 2.1-2.2. Problem Qualifiers (1) UTI (urinary tract infection): Lynsey Goldman MD Oct 29, 2016 13:01
--- NOTE | 2016-10-29 14:34 | HHI.IDPN ---
Subjective Subjective Remarks Patient is a 61-year-old male, percent to the hospital complaining of 2 day history of worsening shortness of breath. Patient is paraplegic and states mostly in his motorized wheelchair. He has not been having any cough. He has complicated history in that he has had multiple surgeries. He had left nephrectomy for a calcified kidney possibly related to chronic infection. He also had an ileal conduit as a young patient and it eventually created problem and he subsequently underwent placement of a [place] pouch. He had appendicovesicostomy done and self catheterize himself. Patient stated that he has not been able to catheterize himself over the last 2 days. There's been no fever or chills. He denies any congestion or any significant cough or sputum production. Patient also has chronic decubitus because of his bedridden state. On presentation patient had leukocytosis. He has significant acidosis and very high creatinine. Imaging study showed evidence of right hydronephrosis. Healy catheter insertion was tried but was not successful, and urology was consult. He was also unable to place it, so the patient went to the operating room and had cystoscopy and placement of the Healy catheter under anesthesia. Patient's WBC was quite high, and that has improved. His creatinine is still elevated but slightly better compared to what it was on admission. He has urine output which seems adequate. Renal is following the patient. Patient also has multiple decubitus ulcers including the left heel and in the buttock area. Urine culture is growing Proteus, Klebsiella ESBL positive, and Enterococcus faecalis. Wound culture on the left heel which is all the way to the bone has Proteus, second gram-negative ivan, and staph species. Notes reviewed Temps ok Not SOB, no CP Creatinine improving WBC down to normal Antibiotics Zosyn Zyvox Past Medical History Anemia, unknown etiology Spina bifida Arthritis Hyperlipidemia Coronary artery disease Hypertension Paraplegia Chronic renal insufficiency, unknown stage Past Surgical History Neobladder reconstruction, "[place] pouch " Appendectomy Ivan in left femur Band around pelvis and hip Coronary artery bypass grafting Cholecystectomy Coronary artery stent Appendicovesicostomy Colostomy Left nephrectomy Tonsillectomy C5 6 fusion C7 discectomy Allergies: Coded Allergies: Compazine (Verified Allergy, Severe, MUSCLE CONTRACTURES, 08/29/16) Contrast Media (Verified Allergy, Severe, Anaphylaxis, 08/29/16) Thorazine (Verified Allergy, Severe, MUSCLE CONTRACTURES, 08/29/16) *MDRO Multi-Drug Resistant Organism (Verified Adverse Reaction, Unknown, MRSA, 10/23/16) 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 & 10/20/16 [id number] PN- (urine) 10/18/16, MRSA (heel) 10/19/16 Objective . Vital Signs Date Time Temp Pulse Resp B/P Pulse Ox O2 Delivery O2 Flow Rate FiO2 10/29/16 12:00 98.9 76 18 144/84 98 10/29/16 10:29 96 Nasal Cannula 3.00 10/29/16 08:00 72 10/29/16 08:00 98.1 80 18 156/94 94 10/29/16 07:00 Nasal Cannula 3.00 40 10/29/16 06:00 86 10/29/16 05:01 78 20 152/90 90 10/29/16 05:00 82 10/29/16 04:00 80 10/29/16 03:00 84 10/29/16 02:00 80 10/29/16 01:00 98.6 82 18 138/83 91 10/29/16 01:00 80 10/29/16 00:00 81 10/28/16 23:00 78 10/28/16 22:00 78 10/28/16 21:00 74 10/28/16 20:00 98.7 87 20 153/86 91 10/28/16 20:00 76 10/28/16 19:00 94 Nasal Cannula 3.00 10/28/16 19:00 76 10/28/16 18:00 74 10/28/16 17:00 72 10/28/16 16:00 98.5 81 20 158/85 94 10/28/16 16:00 80 10/28/16 15:00 86 10/28/16 10/28/16 10/29/16 14:59 22:59 06:59 Intake Total 790 ml 765 ml Output Total 2800 ml 2150 ml Balance -2010 ml -1385 ml Intake Oral 620 ml 600 ml IV Total 170 ml 165 ml Output Urine Total 2600 ml 1900 ml Stool Total 200 ml 250 ml . Laboratory Tests Test 10/29/16 06:07 White Blood Count 9.3 TH/MM3 Red Blood Count 3.30 MIL/MM3 Hemoglobin 8.4 GM/DL Hematocrit 27.2 % Mean Corpuscular Volume 82.3 FL Mean Corpuscular Hemoglobin 25.4 PG Mean Corpuscular Hemoglobin 30.9 % Concent Red Cell Distribution Width 19.9 % Platelet Count 102 TH/MM3 Mean Platelet Volume 6.8 FL Laboratory Tests Test 10/28/16 10/29/16 01:54 06:07 Sodium Level 142 MEQ/L 141 MEQ/L Potassium Level 3.5 MEQ/L 3.6 MEQ/L Chloride Level 104 MEQ/L 102 MEQ/L Carbon Dioxide Level 29.6 MEQ/L 28.1 MEQ/L Anion Gap 8 MEQ/L 11 MEQ/L Blood Urea Nitrogen 38 MG/DL 36 MG/DL Creatinine 3.10 MG/DL 3.14 MG/DL Estimat Glomerular Filtration 21 ML/MIN 20 ML/MIN Rate Random Glucose 112 MG/DL 163 MG/DL Calcium Level 7.5 MG/DL 8.1 MG/DL Triglycerides Level 127 MG/DL Cholesterol Level 96 MG/DL LDL Cholesterol 35 MG/DL HDL Cholesterol 36.0 MG/DL Cholesterol/HDL Ratio 2.66 RATIO Imaging Renal Ultrasound 10/18/16 0000 Signed Impressions: Service Date/Time: Tuesday, October 18, 2016 15:27 - CONCLUSION: 1. Hydronephrosis of the right kidney. 2. Cystectomy with neobladder. Alok Upton MD Chest X-Ray 10/18/16 0000 Signed Impressions: Service Date/Time: Tuesday, October 18, 2016 12:44 - CONCLUSION: Possible mild bibasilar atelectasis. Deborah Dean MD Abdomen/Pelvis CT 10/18/16 0000 Signed Impressions: Service Date/Time: Tuesday, October 18, 2016 16:07 - CONCLUSION: 1. There is hydronephrosis of the right kidney similar to previous study with neobladder and ileostomy. 2. 3 mm nonobstructing right renal calculus. 3. Left nephrectomy. Alok Upton MD Physical Exam GENERAL: awake and alert, not in respiratory distress. SKIN: Warm and dry. No generalized rash HEAD: Atraumatic. Normocephalic. No temporal wasting, or tenderness. EYES: [place] conjunctiva. No petechia or hemorrhage. Extraocular movements full and intact. No scleral icterus. EARS, NOSE AND THROAT: Nose without bleeding or purulent nasal discharge. Mucous membranes pink and moist. No oral lesions noted. NECK: Trachea midline. Supple and not tender, no meningeal signs CARDIOVASCULAR: Regular rate and rhythm. No murmurs, rubs or gallops heard RESPIRATORY: Breath sounds equal bilaterally. No rales, wheezing or rhonchi. Decreased at bases ABDOMEN: Soft, obese, multiple scars noted. Has colostomy on L with some stool. Healy in RLQ into his neobladder. Bowel sounds present and normoactive. No guarding. No rebound. EXTREMITIES: No clubbing, cyanosis. S/P amputation on his RLE, ?[place], well healed stump. L heel with ulcer, with necrotic tissue in 1/3 of open wound , no odor. Decreasing edema BLE NEUROLOGICAL: Awake and alert. Cranial nerves grossly intact. Good strength in his UE. NO movement in BLE BACK: Multiple dressings in place over wounds, not very deep PSYCHIATRIC: Normal affect, calm and cooperative. LINE: No evidence of infection : Has haely in his neobladder Assessment & Plan Remarks IMPRESSION Urosepsis due to obstruction, and inability to do self cath, with R hydro on imaging - UC Proteus, Kleb ESBL and Enterococcus - repeat UC better CKD, creatinine still high Paraplegia Hx spina bifida Decubitus L Heel, (+) polymicrobial RECOMMENDATION Give 7 days Zyvox for MRSA in his heel C/S Wound care per podiatry Change to oral Augmentin and complete Rx for his UTI - end date ordered in [facility] He is clinically stable from ID standpoint I will be available prn Please call of with any other ID issue or question Vira Enrique MD Oct 29, 2016 14:34
[2016-10-29] MEDS: AMOXICILLIN/CLAVULANATE K 500 MG TAB PO SCH ×2 (17:23→21:03)
[2016-10-30] VITALS (17 sets, daily range): BP systolic 120–142; BP diastolic 70–92; PULSE 76–92; RESP 12–20; TEMP 98.3–99.2; O2SAT 90–95
[2016-10-30] MEDS: MORPHINE SULFATE 4 MG/ML INJ IV PUSH PRN ×2 (01:53→22:08)
[2016-10-30] MEDS: NITROGLYCERIN 2% OINT 1 GM PACKET TOPICAL SCH ×4 (03:00→22:10)
[2016-10-30] MEDS: CHLORHEXIDINE GLUCONATE 2 % 1 PACK (2 CLOTHS) TOP SCH (04:00)
[2016-10-30] MEDS: CALCIUM CARBONATE 1.25 GM (CA 500 MG) TAB PO SCH ×3 (06:51→22:00)
[2016-10-30] MEDS: AMOXICILLIN/CLAVULANATE K 500 MG TAB PO SCH ×3 (06:51→22:10)
[2016-10-30] MEDS: hydrALAZINE HCL 100 MG TAB PO SCH ×3 (06:51→22:10)
[2016-10-30] MEDS: COLLAGENASE OINT 30 GM TUBE TOPICAL SCH (09:00)
[2016-10-30] MEDS: POLYETHYLENE GLYCOL 17 GM PKG PO SCH (09:05)
[2016-10-30] MEDS: DOCUSATE SODIUM 50 MG/SENNA 8.6 MG TAB PO SCH ×2 (09:06→22:10)
[2016-10-30] MEDS: amLODIPine BESYLATE 5 MG TAB PO SCH (09:06)
[2016-10-30] MEDS: ASPIRIN EC 81 MG TABEC PO SCH (09:06)
[2016-10-30] MEDS: METOPROLOL SUCCINATE 25 MG EXTENDED RELEASE TAB PO SCH (09:06)
[2016-10-30] MEDS: CALCITRIOL 0.25 MCG CAP PO SCH (09:06)
[2016-10-30] MEDS: FUROSEMIDE 20 MG/2 ML VIAL IV PUSH SCH ×2 (09:07→17:38)
[2016-10-30] MEDS: LINEZOLID 600 MG TAB PO SCH (09:10)
--- NOTE | 2016-10-30 10:34 | HHI.NPPN ---
Subjective History of Present Illness 61-year-old male with past medical history of paraplegia, history of partial small-bowel obstruction, hypertension, hyperlipidemia, ischemic heart disease, chronic kidney disease, arthritis, anemia, history of neobladder formation with neurogenic bladder, left nephrectomy who was admitted with complaint of shortness of breath. The patient mainly came with shortness of breath and he was found to be severely acidotic with a very low pH of 6.99 and bicarb was very low and very high BUN and creatinine. The patient previously has a history of chronic kidney disease, although is not following with any legal referee. His creatinine was 2.1-2.2 which was his baseline when he was admitted last month. Additional Remarks Patient is alert, no chest pain , no SOB, sitting on the bed, getting PT. Review of Systems General Constitutional: Fatigue Respiratory Lungs: SOB Cardiovascular Cardiac: BAEZ Objective Data Data 10/29/16 10/30/16 18:59 06:59 Intake Total 1700 ml 540 ml Output Total 3050 ml 1725 ml Balance -1350 ml -1185 ml Intake Oral 1700 ml 480 ml IV Total 60 ml Output Urine Total 2550 ml 1725 ml Stool Total 500 ml Bladder Scan Volume Amount 999 ml 999 ml Vital Signs Date Time Temp Pulse Resp B/P Pulse Ox O2 Delivery O2 Flow Rate FiO2 10/30/16 10:17 94 Nasal Cannula 4.00 10/30/16 06:00 78 10/30/16 05:00 78 10/30/16 04:00 99.2 81 12 129/74 94 10/30/16 04:00 79 10/30/16 03:00 78 10/30/16 02:00 84 10/30/16 01:00 80 10/30/16 00:00 77 10/30/16 00:00 98.7 83 12 139/92 94 10/29/16 23:00 74 10/29/16 22:00 80 10/29/16 21:00 86 10/29/16 20:00 82 10/29/16 20:00 93 Nasal Cannula 3.00 10/29/16 20:00 99.0 78 146/89 93 10/29/16 19:00 82 10/29/16 17:22 96 Nasal Cannula 3.00 10/29/16 16:43 16 10/29/16 16:00 97.9 86 18 154/84 94 10/29/16 16:00 80 10/29/16 12:00 98.9 76 18 144/84 98 -: 10/29/16 0607 10/29/16 0607 Physical Exam General Appearance: Well Nourished, No Acute Distress, Comfortable Eyes Eye Exam: Pupils Equal Throat Throat Exam: Oral Mucosa [place] & Moist Neck Neck Exam: Neck Supple Pulmonary Resp Exam: Breath Sounds Equal, No Distress, Decreased Bases Cardiology CV Exam: Regular, Normal Sinus Rhythm Gastrointestinal/Abdomen GI Exam: Soft, Non-Tender, Bowel Sounds Present Extremeties Extremities Exam: Trace Edema Neurologic Neuro Exam: Alert, Awake, Oriented Psychiatric Psych Exam: Appropriate Responses Assessment/Plan Assessment Summary: VIJAY/Acute Renal Failure, CKD Stage III Electrolyte Assessment: Hypocalcemia, Hypokalemia, Metabolic Acidosis Problem List: (1) Leukocytosis (2) Acidemia (3) Respiratory distress (4) Paraplegia (5) UTI (urinary tract infection) (6) CKD (chronic kidney disease), stage III (7) Acute renal failure Plan Patient has advance stage 3 chronic kidney disease, and develop VIJAY, with severe metabolic acidosis. Also has UTI and obstructive uropathy. Creatinine is slowly improving.Lasix was given due to edema Growing enterococcus faecalis, Klebsiella pneumonia ESBL positive, protease mirabilis Patient on Augmentin and Zyvox. Lasix 20 mg IV Q 12 Stress test is negative for ongoing ischemia. Creatinine is stable, his baseline Creatinine is 2.1-2.2. Continue Lasix, follow the BMP. Problem Qualifiers (1) UTI (urinary tract infection): Lynsey Goldman MD Oct 30, 2016 10:34
--- NOTE | 2016-10-30 11:21 | HHI.PR ---
Subjective Remarks resting comfortably with no distress. no chest pain or sob. afebrile. no new complaints. d/w the RN and no acute issues over night. Objective Vitals Vital Signs Date Time Temp Pulse Resp B/P Pulse Ox O2 Delivery O2 Flow Rate FiO2 10/30/16 10:17 94 Nasal Cannula 4.00 10/30/16 06:00 78 10/30/16 05:00 78 10/30/16 04:00 99.2 81 12 129/74 94 10/30/16 04:00 79 10/30/16 03:00 78 10/30/16 02:00 84 10/30/16 01:00 80 10/30/16 00:00 77 10/30/16 00:00 98.7 83 12 139/92 94 10/29/16 23:00 74 10/29/16 22:00 80 10/29/16 21:00 86 10/29/16 20:00 82 10/29/16 20:00 93 Nasal Cannula 3.00 10/29/16 20:00 99.0 78 146/89 93 10/29/16 19:00 82 10/29/16 17:22 96 Nasal Cannula 3.00 10/29/16 16:43 16 10/29/16 16:00 97.9 86 18 154/84 94 10/29/16 16:00 80 10/29/16 12:00 98.9 76 18 144/84 98 I/O 10/29/16 10/29/16 10/29/16 10/30/16 10/30/16 10/30/16 06:59 14:59 22:59 06:59 14:59 22:59 Intake Total 765 ml 1700 ml 540 ml Output Total 2150 ml 3050 ml 1725 ml Balance -1385 ml -1350 ml -1185 ml Intake Oral 600 ml 1700 ml 480 ml IV Total 165 ml 60 ml Output Urine Total 1900 ml 2550 ml 1725 ml Stool Total 250 ml 500 ml Bladder Scan Volume Amount 999 ml 999 ml Result Diagram: 10/29/16 0607 10/29/16 0607 Imaging Last Impressions Myocardial Perfusion Scan Nuc Med 10/28/16 0000 Signed Impressions: Service Date/Time: Friday, October 28, 2016 12:22 - CONCLUSION: 1. Fixed perfusion defects in the inferior and lateral wall most characteristic of prior myocardial infarction. No significant reversibility to suggest ischemia. 2. Ejection fraction within normal limits at 57%%. RISK CATEGORY: Intermediate (1-3%% Annual Mortality Rate) Nura Ramirez MD Chest X-Ray 10/26/16 0000 Signed Impressions: Service Date/Time: Wednesday, October 26, 2016 12:26 - CONCLUSION: 1. Cardia megaly with mild positive fluid balance. 2. Bibasilar airspace disease and questionable trace right pleural effusion. Jeremiah Caba MD Foot X-Ray 10/23/16 0000 Signed Impressions: Service Date/Time: Sunday, October 23, 2016 17:13 - CONCLUSION: Chronic changes and no definite signs of osteomyelitis. Deborah Dean MD Renal Ultrasound 10/18/16 0000 Signed Impressions: Service Date/Time: Tuesday, October 18, 2016 15:27 - CONCLUSION: 1. Hydronephrosis of the right kidney. 2. Cystectomy with neobladder. Alok Upton MD Abdomen/Pelvis CT 10/18/16 0000 Signed Impressions: Service Date/Time: Tuesday, October 18, 2016 16:07 - CONCLUSION: 1. There is hydronephrosis of the right kidney similar to previous study with neobladder and ileostomy. 2. 3 mm nonobstructing right renal calculus. 3. Left nephrectomy. Alok Upton MD Objective Remarks GENERAL: This is a well-nourished, well-developed patient, in no apparent distress. CARDIOVASCULAR: Regular rate and regular rhythm without murmurs, gallops, or rubs. RESPIRATORY: Clear to auscultation. Breath sounds equal bilaterally. No wheezes , rales, or rhonchi. GASTROINTESTINAL: Abdomen soft, non-tender, nondistended. Normal, active bowel sounds MUSCULOSKELETAL: Extremities without clubbing, cyanosis, or edema. NEURO: awake and alert. skin; ulcer on the left heel Medications and IVs Current Medications Sodium Bicarbonate 50 meq 50 meq ONCE ONCE IV PUSH Last administered on t 15:34; Start 10/18/16 at 14:30; Stop 10/18/16 at 14:31; Status DC Sodium Bicarbonate/ Dextrose (Sodium Bicarbonate 8.4% Inj/D5W 1000 ml Inj) 1, 150 ml @ 150 mls/hr Q7H40M IV Last administered on 10/20/16 01:17; Start at 15:00; Stop 10/20/16 at 16:33; Status DC Dextrose (D50w (Vial) Inj) 25 ml UNSCH PRN IV PUSH HYPOGLYCEMIA-SEE COMMENTS; Start 10/18/16 at 14:30; Stop 10/19/16 at 10:29; Status DC Insulin Human Regular (NovoLIN R SUPPLEMENTAL SCALE) 1 ACHS AND 3AM SQ ; Start 10/18/16 at 16:00; Stop 10/19/16 at 10:34; Status DC Sodium Bicarbonate 150 meq 150 meq ONCE ONCE IV PUSH Last administered on 10/18 15:20; Start 10/18/16 at 14:45; Stop 10/18/16 at 14:46; Status DC Piperacillin Sod/ Tazobactam Sod (Zosyn 2.25 Gm Premix) 50 ml @ 100 mls/hr Q8H IV Last administered on 10/29/16 11:58; Start 10/18/16 at 17:00; Stop 10/29/16 at 14:36; Status DC Ondansetron HCl (Zofran Inj) 4 mg Q6H PRN IV NAUSEA OR VOMITING Last administered on 10/18/16 18:40; Start 10/18/16 at 16:30 Albuterol/ Ipratropium (Duoneb Neb) 1 ampule Q2HR NEB PRN INH WHEEZING Last administered on 10/29/16 21:26; Start 10/18/16 at 16:30 Heparin Sodium (Porcine) (Heparin Inj) 5,000 units Q12H SQ Last administered on 10/25/16 17:22; Start 10/18/16 at 18:00; Stop 10/26/16 at 14:05; Status DC Miscellaneous Information 1 [id number] Last administered on 10/18/16 16:30; Start 10/18/16 at 16:30 Chlorhexidine Gluconate (Chlorhexidine 2% Cloth) Taper DAILY@04 TOP Last administered on 10/20/16 04:00; Start 10/19/16 at 04:00; Stop 10/15/17 at 03:59 Chlorhexidine Gluconate (Chlorhexidine 2% Cloth) 3 pack UNSCH PRN TOP HYGIENIC CARE; Start 10/18/16 at 16:30 Senna/Docusate Sodium (Margarita-Colace) 1 tab BID PO Last administered on 10/30/16 09:06; Start 10/18/16 at 21:00 Calcium Acetate 1334 mg 1,334 mg TID PO Last administered on 10/21/16 09:56; Start 10/19/16 at 09:00; Stop 10/21/16 at 16:52; Status DC Calcium Gluconate/ Dextrose (Calcium Gluconate Inj/D5W 100 ml Inj) 120 ml @ 120 mls/hr ONCE ONCE IV Last administered on 10/19/16 00:54; Start 10/19/16 at 01:00; Stop 10/19/16 at 01:59; Status DC Sodium Bicarbonate (Sodium Bicarbonate 8.4% Inj) 50 meq STK-MED ONCE .ROUTE ; Start 10/19/16 at 05:42; Stop 10/19/16 at 05:43; Status DC Sodium Bicarbonate 100 meq 100 meq NOW ONCE IV PUSH Last administered on 05:51; Start 10/19/16 at 06:00; Stop 10/19/16 at 06:01; Status DC Potassium Chloride 100 ml @ 50 mls/hr Q2H IV Last administered on 10/19/16 13 :22; Start 10/19/16 at 10:00; Stop 10/19/16 at 13:59; Status DC Calcium Gluconate 2 gm/Sodium Chloride 120 ml @ 120 mls/hr ONCE ONCE IV Last administered on 10/19/16 10:13; Start 10/19/16 at 10:30; Stop 10/19/16 at 11:29 ; Status DC Magnesium Sulfate/ Dextrose 100 ml @ 100 mls/hr Q1H IV Last administered on 11:25; Start 10/19/16 at 10:00; Stop 10/19/16 at 11:59; Status DC Cefepime HCl 2000 mg/Sodium Chloride 100 ml @ 200 mls/hr Q8H IV ; Start at 11:00; Stop 10/19/16 at 11:00; Status DC Sodium Chloride (NS 500 ml Inj) 500 ml @ 500 mls/hr BOLUS ONCE IV Last administered on 10/19/16 10:15; Start 10/19/16 at 10:00; Stop 10/19/16 at 10:59 ; Status DC Dextrose (D50w (Syr) Inj) 50 ml UNSCH PRN IV HYPOGLYCEMIA-SEE COMMENTS; Start 10/19/16 at 10:30 Glucagon (Glucagon Inj) 1 mg UNSCH PRN OTHER HYPOGLYCEMIA-SEE COMMENTS; Start 10/19/16 at 10:00; Stop 10/24/16 at 09:55; Status DC Insulin Aspart (NovoLOG SUPPLEMENTAL SCALE) 1 ACHS SLIDING SCALE SQ Last administered on 10/20/16 21:06; Start 10/19/16 at 11:00; Stop 10/26/16 at 15:49 ; Status DC Aspirin 81 mg 81 mg DAILY PO Last administered on 10/30/16 09:06; Start at 10:30 Linezolid (Zyvox 600 Mg Premix) 300 ml @ 300 mls/hr Q12H IV Last administered on 10/22/16 11:56; Start 10/19/16 at 11:00; Stop 10/22/16 at 13:55; Status DC Potassium Bicarb/ Potassium Chloride 50 meq 50 meq NOW ONCE PO Last administered on 10/19/16 10:44; Start 10/19/16 at 10:45; Stop 10/19/16 at 10:46 ; Status DC Calcium Gluconate 2 gm/Sodium Chloride 120 ml @ 120 mls/hr NOW IV Last administered on 10/19/16 21:47; Start 10/19/16 at 21:45; Stop 10/19/16 at 22:44 ; Status DC Potassium Chloride 100 ml @ 50 mls/hr Q2H IV Last administered on 10/20/16 01 :19; Start 10/19/16 at 22:00; Stop 10/20/16 at 01:59; Status DC Calcium Gluconate 2 gm/Sodium Chloride 120 ml @ 120 mls/hr NOW ONCE IV Last administered on 10/20/16 10:27; Start 10/20/16 at 10:00; Stop 10/20/16 at 10:59 ; Status DC Sodium Chloride (NS 1000 ml Inj) 1,000 ml @ 100 mls/hr Q10H IV Last administered on 10/23/16 14:45; Start 10/20/16 at 16:45; Stop 10/24/16 at 09:55 ; Status DC Polyethylene Glycol (Miralax) 17 gm DAILY PO Last administered on 10/30/16 09: 05; Start 10/20/16 at 20:00 Oxycodone HCl (Roxicodone) 10 mg Q6H PRN PO PAIN SCALE 7 TO 10 Last administered on 10/25/16 09:40; Start 10/21/16 at 10:15; Stop 10/25/16 at 15:33 ; Status DC Potassium Bicarb/ Potassium Chloride (K-Lyte Cl Eff) 50 meq NOW ONCE PO Last administered on 10/21/16 12:51; Start 10/21/16 at 13:00; Stop 10/21/16 at 13:01 ; Status DC Calcitriol (Rocaltrol) 0.5 mcg DAILY PO Last administered on 10/30/16 09:06; Start 10/21/16 at 17:00 Calcium Carbonate (Oscal) 1,000 mg Q8HR PO Last administered on 10/30/16 06:51 ; Start 10/21/16 at 22:00 Dofetilide (Tikosyn) 500 mcg BID PO ; Start 10/21/16 at 21:00; Stop 10/21/16 at 21:43; Status DC Potassium Chloride (KCl) 40 meq ONCE ONCE PO Last administered on 10/22/16 07 :22; Start 10/22/16 at 06:45; Stop 10/22/16 at 06:46; Status DC Calcium Gluconate 1 gm 1 gm ONCE ONCE IV PUSH ; Start 10/22/16 at 06:45; Stop 10/22/16 at 06:46; Status Cancel Calcium Gluconate/ Sodium Chloride (Calcium Gluconate Inj/NS Inj) 110 ml @ 220 mls/hr ONCE ONCE IV Last administered on 10/22/16 08:19; Start 10/22/16 at 07 :00; Stop 10/22/16 at 07:29; Status DC Hydralazine HCl (Apresoline) 50 mg Q8HR PO Last administered on 10/23/16 06:09 ; Start 10/22/16 at 12:45; Stop 10/23/16 at 11:12; Status DC Collagenase (Santyl Oint) 1 applic DAILY TOPICAL Last administered on 10/29/16 09:00; Start 10/22/16 at 12:45 Linezolid (Zyvox) 600 mg Q12HR PO Last administered on 10/30/16 09:10; Start at 21:00; Stop 10/30/16 at 12:00 Hydralazine HCl (Apresoline) 100 mg Q8HR PO Last administered on 10/30/16 06:51 ; Start 10/23/16 at 14:00 Amlodipine Besylate (Norvasc) 5 mg DAILY PO Last administered on 10/30/16 09:06 ; Start 10/24/16 at 10:00 Metoprolol Succinate (Toprol Xl) 25 mg DAILY PO Last administered on 10/28/16 09:46; Start 10/24/16 at 10:00; Stop 10/29/16 at 12:15; Status DC Furosemide (Lasix Inj) 20 mg BID@09,18 IV PUSH Last administered on 10/30/16 09 :07; Start 10/24/16 at 10:30 Albumin Human (Albumin 25% Inj) 25 gm Q12H IV Last administered on 10/27/16 17: 21; Start 10/24/16 at 18:45; Stop 10/27/16 at 18:19; Status DC Oxycodone HCl (Roxicodone) 20 mg Q4HR PRN PO PAIN SCALE 7 TO 10 Last administered on 10/30/16 09:26; Start 10/25/16 at 16:00 Nitroglycerin (Nitrostat Sl) 0.4 mg ONCE ONCE SL Last administered on 14:27; Start 10/26/16 at 12:30; Stop 10/26/16 at 12:31; Status DC Potassium Chloride (KCl) 20 meq ONCE ONCE PO Last administered on 10/26/16 14 :17; Start 10/26/16 at 12:30; Stop 10/26/16 at 12:31; Status DC Nitroglycerin 0.5 inch 0.5 inch Q6H TOPICAL Last administered on 10/30/16 09:11 ; Start 10/26/16 at 15:00 Heparin Sodium/ Dextrose (Heparin-D5W Inj) 250 ml @ 0 mls/hr TITRATE IV Last administered on 10/29/16 01:44; Start 10/26/16 at 14:15; Stop 10/29/16 at 12:15; Status DC Morphine Sulfate (Morphine Inj) 2 mg Q3H PRN IV PUSH chest pain Last administered on 10/30/16 01:53; Start 10/26/16 at 14:30 Atorvastatin Calcium (Lipitor) 40 mg HS PO Last administered on 10/29/16 11:57 ; Start 10/26/16 at 21:00 Acetaminophen (Tylenol) 650 mg Q4H PRN PO HEADACHE Last administered on 09:18; Start 10/27/16 at 09:00 Regadenoson (Lexiscan Inj) 0.4 mg STK-MED ONCE .ROUTE Last administered on 11:46; Start 10/28/16 at 11:46; Stop 10/28/16 at 11:47; Status DC Aminophylline (Aminophylline Inj) 250 mg STK-MED ONCE .ROUTE Last administered on 10/28/16 12:15; Start 10/28/16 at 12:15; Stop 10/28/16 at 12:16; Status DC Metoprolol Succinate (Toprol Xl) 50 mg DAILY PO Last administered on 10/30/16 09:06; Start 10/30/16 at 09:00 Amoxicillin/ Clavulanate Potassium (Augmentin) 500 mg Q8HR PO Last administered on 10/30/16 06:51; Start 10/29/16 at 14:45; Stop 11/05/16 at 14:44 A/P Assessment and Plan A/p NSTEMI -Similar chest pain from his prior MD. Previously saw Dr. Coelho but has not seen him for many years. -continue aspirin and metoprolol and statin. -stress test with no reversible ischemia -cardiology following- d/w Dr. Chung and cleared for discharge. Acute respiratory failure- resolved -Patient on IV Lasix. Continue a strict ins and outs. Avoid nephrotoxins. Acute kidney injury-secondary to obstructive uropathy S/P left nephrectomy, cystectomy with neobladder -Healy place with improvement in symptoms. -Urology following Dr. Shelton -awaiting Urology recommendations on healy- -Follow-up nephrology - Strict I/Os Hydronephrosis right kidney -Due to the above. Sepsis -Secondary to the above. Treated. Resolved. Hypertension H/O CABG, cardiac stent -Initially antihypertensive medication was held secondary to hypotension. Continue hydralazine. Continue metoprolol and amlodipine. Adjust accordingly. -Continue ASA 81 mg/day Chronic Left heel [id number] -Infectious disease following. -continue Zyvox per ID. -Cultures growing proteus mirabilis, MRSA, group D enterococcus. -Wound care nurse consulted. UTI -Growing enterococcus faecalis, Klebsiella pneumonia ESBL positive, protease mirabilis -will switch to Augmentin -per ID. S/P C5-C6 fusion, C7 discectomy -Stable. Prophylaxis: GI Prophylaxis Discharge Planning dc to [place] today after seen by Urology. see med list. f/u;pcp,nephrology,cardiology and urology. f/u with wound care. d/w the patient and RN. d/w . time spent 35 min. Tyler Gallegos MD Oct 30, 2016 11:21
[2016-10-30] MEDS ORDERED: METO25TA6 PO (11:26)
[2016-10-30] MEDS ORDERED: AUGM500T7 PO (11:26)
[2016-10-30] MEDS ORDERED: ZYVO600T PO (11:26)
[2016-10-30] MEDS ORDERED: ATOR40TA16 PO (11:26)
--- NOTE | 2016-10-30 11:27 | HHI.DCPOC ---
Discharge Care Plan Diagnosis: (1) CKD (chronic kidney disease), stage III (2) UTI (urinary tract infection) (3) Elevated troponin Your Health Problems Are: Skin Breakdown Urinary Difficulties Goals to Promote Your Health * To prevent worsening of your condition and complications * To maintain your health at the optimal level Directions to Meet Your Goals Take your medications as prescribed Follow your dietary instruction Follow activity as directed Keep your appointments as scheduled Take your immunizations and boosters as scheduled If your symptoms worsen call your PCP, if no PCP go to Urgent Care Center or Emergency Room Smoking is Dangerous to Your Health. Avoid second hand smoke Call the 24-hour hour crisis hotline for domestic abuse at Tyler Gallegos MD Oct 30, 2016 11:27
--- NOTE | 2016-10-30 11:29 | HHI.DS ---
Discharge Summary Admission Date Oct 18, 2016 at 14:40 Discharge Date: Oct 30, 2016 Admitting Diagnosis renal failure, acidemia, resp distress (1) Acute renal failure ICD Code: N17.9 Diagnosis: Principal (2) UTI (urinary tract infection) ICD Code: N39.0 Diagnosis: Principal (3) Elevated troponin ICD Code: R74.8 Diagnosis: Principal (4) CAD (coronary artery disease) ICD Code: I25.10 Diagnosis: Secondary Procedures none Brief History - From Admission This is a 61-year-old male with a past history of paraplegia who had a recent hospitalization less than month ago for partial small bowel obstruction resolved medically without surgical intervention. He presents with a 2 day history of shortness of breath that has been worsening. He has no history of lung disease. He has never had any shortness of breath problems in the past. He was found to have a severe anion gap metabolic acidosis with a pH of 6.9 and a base deficit of 25. In addition, he has a new severe acute renal failure. He denies fever, chills. He denies dysuria, frequency of urination, or decreased urination. He self catheters at home through a neobladder, but he states that he has been unable to past 2 days. Critical care medicine is consulted to evaluate and manage his severe acidosis. He was placed on BiPAP due to severe respiratory distress secondary to his acidosis. The remainder of the history and review of systems is negative unless otherwise specified above. CBC/BMP: 10/29/16 0607 10/29/16 0607 Significant Findings Laboratory Tests Test 10/28/16 10/28/16 10/28/16 10/29/16 01:54 10:17 23:16 06:07 Blood Urea Nitrogen 38 MG/DL (7-18) 36 MG/DL (7-18) Creatinine 3.10 MG/DL 3.14 MG/DL (0.60-1.30) (0.60-1.30) Estimat Glomerular Filtration 21 ML/MIN (>89) 20 ML/MIN (>89) Rate Random Glucose 112 MG/DL 163 MG/DL (74-106) (74-106) Calcium Level 7.5 MG/DL 8.1 MG/DL (8.5-10.1) (8.5-10.1) Cholesterol Level 96 MG/DL (120-200) HDL Cholesterol 36.0 MG/DL (40.0-60.0) Activated Partial 32.4 SEC 34.3 SEC Thromboplast Time (24.3-30.1) (24.3-30.1) Red Blood Count 3.30 MIL/MM3 (4.50-5.90) Hemoglobin 8.4 GM/DL (13.0-17.0) Hematocrit 27.2 % (39.0-51.0) Mean Corpuscular Hemoglobin 25.4 PG (27.0-34.0) Mean Corpuscular Hemoglobin 30.9 % Concent (32.0-36.0) Red Cell Distribution Width 19.9 % (11.6-17.2) Platelet Count 102 TH/MM3 (150-450) Mean Platelet Volume 6.8 FL (7.0-11.0) Test 10/29/16 09:52 Activated Partial 38.5 SEC Thromboplast Time (24.3-30.1) Imaging Last Impressions Myocardial Perfusion Scan Nuc Med 10/28/16 0000 Signed Impressions: Service Date/Time: Friday, October 28, 2016 12:22 - CONCLUSION: 1. Fixed perfusion defects in the inferior and lateral wall most characteristic of prior myocardial infarction. No significant reversibility to suggest ischemia. 2. Ejection fraction within normal limits at 57%%. RISK CATEGORY: Intermediate (1-3%% Annual Mortality Rate) Nura Ramirez MD Chest X-Ray 10/26/16 0000 Signed Impressions: Service Date/Time: Wednesday, October 26, 2016 12:26 - CONCLUSION: 1. Cardia megaly with mild positive fluid balance. 2. Bibasilar airspace disease and questionable trace right pleural effusion. Jeremiah Caba MD Foot X-Ray 10/23/16 0000 Signed Impressions: Service Date/Time: Sunday, October 23, 2016 17:13 - CONCLUSION: Chronic changes and no definite signs of osteomyelitis. Deborah Dean MD Renal Ultrasound 10/18/16 0000 Signed Impressions: Service Date/Time: Luis, October 18, 2016 15:27 - CONCLUSION: 1. Hydronephrosis of the right kidney. 2. Cystectomy with neobladder. Alok Upton MD Abdomen/Pelvis CT 10/18/16 0000 Signed Impressions: Service Date/Time: Tuesday, October 18, 2016 16:07 - CONCLUSION: 1. There is hydronephrosis of the right kidney similar to previous study with neobladder and ileostomy. 2. 3 mm nonobstructing right renal calculus. 3. Left nephrectomy. Alok Upton MD PE at Discharge GENERAL: This is a well-nourished, well-developed patient, in no apparent distress. CARDIOVASCULAR: Regular rate and regular rhythm without murmurs, gallops, or rubs. RESPIRATORY: Clear to auscultation. Breath sounds equal bilaterally. No wheezes , rales, or rhonchi. GASTROINTESTINAL: Abdomen soft, non-tender, nondistended. Normal, active bowel sounds MUSCULOSKELETAL: Extremities without clubbing, cyanosis, or edema. NEURO: awake and alert. skin; ulcer on the left heel Hospital Course NSTEMI -Similar chest pain from his prior [place]. Previously saw Dr. Coelho but has not seen him for many years. -continue aspirin and metoprolol and statin. -stress test with no reversible ischemia -cardiology following- d/w Dr. Chung and cleared for discharge. Acute respiratory failure- resolved -Patient on Lasix. Continue a strict ins and outs. Avoid nephrotoxins. Acute kidney injury-secondary to obstructive uropathy S/P left nephrectomy, cystectomy with neobladder -Healy place with improvement in symptoms. -f/u with urology and nephrology as outpatient. -continue with healy cath. - Strict I/Os Hydronephrosis right kidney -Due to the above. Sepsis -Secondary to the above. Treated. Resolved. Hypertension H/O CABG, cardiac stent -Initially antihypertensive medication was held secondary to hypotension. Continue hydralazine. Continue metoprolol and amlodipine. Adjust accordingly. -Continue ASA 81 mg/day Chronic Left heel [id number] -Infectious disease following. -continue Zyvox per ID. -Cultures growing proteus mirabilis, MRSA, group D enterococcus. -Wound care nurse consulted. UTI -Growing enterococcus faecalis, Klebsiella pneumonia ESBL positive, protease mirabilis -continue Augmentin -per ID. S/P C5-C6 fusion, C7 discectomy -Stable. Prophylaxis: GI Prophylaxis Pt Condition on Discharge: Fair Discharge Disposition: Rehab Inpatient Discharge Time: > 30 minutes Discharge Instructions DIET: Follow Instructions for: Heart Healthy Diet Activities you can perform: Regular-No Restrictions Follow up Referrals: Cardiology Nephrology PCP Follow-up Urology Wound Care Clinic New Medications: Amoxicillin-Clavulanate (Augmentin) 500-125 mg Tab 500 MG PO Q8HR antibiotic Days 6 Ref 0 TAB Atorvastatin (Atorvastatin) 40 Mg Tab 40 MG PO HS cad Days 30 Ref 0 TAB Calcitriol (Rocaltrol) 0.25 Mcg Cap 0.5 MCG PO DAILY Calcium Supplement Days 30 Ref 0 CAP Linezolid (Zyvox) 600 Mg Tab 600 MG PO Q12HR antibiotic Days 7 Ref 0 TAB Metoprolol Succinate ER 24 HR (Metoprolol Succinate ER 24 HR) 25 Mg Tab 50 MG PO DAILY cad Days 30 Ref 0 TAB Continued Medications: Amlodipine (Amlodipine) 5 Mg Tab 5 MG PO DAILY Blood Pressure Management #30 Ref 0 TAB Ascorbic Acid (Ascorbic Acid) 500 Mg Tab 1000 MG PO DAILY Nutritional Supplement TAB Aspirin DR (Aspirin EC) 81 Mg Tabdr 81 MG PO DAILY Ref 0 TAB Cyanocobalamin (Vitamin B-12) 1,000 Mcg Tab 1000 MCG PO DAILY Nutritional Supplement #1 Ref 0 BOTTLE Desonide Topical (Desonide Topical) 0.05% Cream 1 APPLIC TOPICAL HS Ref 0 GM Docusate Sodium (Docusate Sodium) 100 Mg Cap 100 MG PO BID PRN CONSTIPATION #60 Ref [address] (Ferrous Sulfate DR) 325 Mg Tabdr 325 MG PO TID Hydralazine (Hydralazine) 100 Mg Tab 100 MG PO TID Take with meals Blood Pressure Management Ref 0 TAB Hydrocortisone Topical (Hydrocortisone Topical) 0.5% Cream 1 APPLIC TOPICAL DAILY Apply to face Rash/Inflammation #30 Ref 0 GM Multiple Vitamin (Multiple Vitamin) 1 Tab 1 TAB PO DAILY Nutritional Supplement Ref 0 TAB Ondansetron Odt (Zofran Odt) 4 Mg Tab 4 MG SL Q8HR PRN Nausea/Vomiting #30 Ref 0 TAB Oxycodone (Oxycodone) 30 Mg Tab 30 MG PO Q4HR PRN PAIN Ref 0 TAB Pantoprazole (Protonix) 40 Mg Tab 40 MG PO DAILY Reflux #30 Ref 0 TAB Simethicone (Gas Relief) 20 Mg/0.3 Ml Vic 40 MG PO QID #1 Ref 1 BOTTLE Discontinued Medications: Calcitriol (Calcitriol) 0.25 Mcg Cap 0.25 MCG PO DAILY Calcium Supplement #30 Ref 0 CAP Metoprolol Succinate ER 24 HR (Toprol XL) 25 Mg Tab 25 MG PO DAILY #30 Ref 0 TAB Tyler Gallegos MD Oct 30, 2016 11:29
--- NOTE | 2016-10-30 11:37 | PD.CARD.PN ---
Subjective Subjective Remarks No events overnight No chest pain Objective Medications Current Medications Medications (Trade) Dose Ordered Sig/Yosi Route Start Time Stop Time Status Last Admin (Zofran Inj) 4 mg Q6H PRN IV 10/18/16 16:30 10/18/16 18:40 Miscellaneous Information 1 Q361D XX 10/18/16 16:30 10/18/16 16:30 (Chlorhexidine 2% Cloth) Taper DAILY@04 TOP 10/19/16 04:00 10/15/17 03:59 10/20/16 04:00 (Chlorhexidine 2% Cloth) 3 pack UNSCH PRN TOP 10/18/16 16:30 (Margarita-Colace) 1 tab BID PO 10/18/16 21:00 10/30/16 09:06 (D50w (Syr) Inj) 50 ml UNSCH PRN IV 10/19/16 10:30 (Ecotrin Ec) 81 mg DAILY PO 10/19/16 10:30 10/30/16 09:06 (Miralax) 17 gm DAILY PO 10/20/16 20:00 10/30/16 09:05 (Rocaltrol) 0.5 mcg DAILY PO 10/21/16 17:00 10/30/16 09:06 (Oscal) 1,000 mg Q8HR PO 10/21/16 22:00 10/30/16 06:51 (Santyl Oint) 1 applic DAILY TOPICAL 10/22/16 12:45 10/29/16 09:00 (Zyvox) 600 mg Q12HR PO 10/22/16 21:00 10/30/16 12:00 10/30/16 09:10 (Apresoline) 100 mg Q8HR PO 10/23/16 14:00 10/30/16 06:51 (Norvasc) 5 mg DAILY PO 10/24/16 10:00 10/30/16 09:06 (Lasix Inj) 20 mg BID@18 IV PUSH 10/24/16 10:30 10/30/16 09:07 (Roxicodone) 20 mg Q4HR PRN PO 10/25/16 16:00 10/30/16 09:26 (Nitroglycerin 2% Oint) 0.5 inch Q6H TOPICAL 10/26/16 15:00 10/30/16 09:11 (Morphine Inj) 2 mg Q3H PRN IV PUSH 10/26/16 14:30 10/30/16 01:53 (Lipitor) 40 mg HS PO 10/26/16 21:00 10/29/16 11:57 (Tylenol) 650 mg Q4H PRN PO 10/27/16 09:00 10/27/16 09:18 (Toprol Xl) 50 mg DAILY PO 10/30/16 09:00 10/30/16 09:06 (Augmentin) 500 mg Q8HR PO 10/29/16 14:45 11/05/16 14:44 10/30/16 06:51 Vital Signs / I&O Vital Signs Date Time Temp Pulse Resp B/P Pulse Ox O2 Delivery O2 Flow Rate FiO2 10/30/16 10:17 94 Nasal Cannula 4.00 10/30/16 06:00 78 10/30/16 05:00 78 10/30/16 04:00 99.2 81 12 129/74 94 10/30/16 04:00 79 10/30/16 03:00 78 10/30/16 02:00 84 10/30/16 01:00 80 10/30/16 00:00 77 10/30/16 00:00 98.7 83 12 139/92 94 10/29/16 23:00 74 10/29/16 22:00 80 10/29/16 21:00 86 10/29/16 20:00 82 10/29/16 20:00 93 Nasal Cannula 3.00 10/29/16 20:00 99.0 78 146/89 93 10/29/16 19:00 82 10/29/16 17:22 96 Nasal Cannula 3.00 10/29/16 16:43 16 10/29/16 16:00 97.9 86 18 154/84 94 10/29/16 16:00 80 10/29/16 12:00 98.9 76 18 144/84 98 I/O 10/29/16 10/29/16 10/29/16 10/30/16 10/30/16 10/30/16 06:59 14:59 22:59 06:59 14:59 22:59 Intake Total 765 ml 1700 ml 540 ml Output Total 2150 ml 3050 ml 1725 ml Balance -1385 ml -1350 ml -1185 ml Intake Oral 600 ml 1700 ml 480 ml IV Total 165 ml 60 ml Output Urine Total 1900 ml 2550 ml 1725 ml Stool Total 250 ml 500 ml Bladder Scan Volume Amount 999 ml 999 ml Physical Exam GENERAL: NAD, AAOx3 SKIN: Warm and dry. HEAD: Atraumatic. Normocephalic. EYES: Pupils equal and round. No scleral icterus. No injection or drainage. ENT: No nasal bleeding or discharge. Mucous membranes pink and moist. NECK: Trachea midline. No JVD. CARDIOVASCULAR: Regular rate and rhythm. No murmurs noted RESPIRATORY: No accessory muscle use. Decreased breath sounds bilaterally GASTROINTESTINAL: Abdomen soft, non-tender, nondistended. Hepatic and splenic margins not palpable. MUSCULOSKELETAL: 1+ pitting edema bilaterally NEUROLOGICAL: Awake and alert. No obvious cranial nerve deficits. PSYCHIATRIC: Appropriate mood and affect; insight and judgment normal. Assessment and Plan Problem List: (1) Elevated troponin (2) CAD (coronary artery disease) (3) Hx of CABG (4) 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 (5) Paraplegia (6) Acute renal failure (7) CKD (chronic kidney disease), stage III Assessment and Plan 1) Chest pain previously Elevated troponin although not a typical rise and fall Possible secondary to original presentation and just continuing down Stress test showing infarction but no ischemic areas, con't medical management Con't ASA BB increased 2) VIJAY on CKD Concern for overall kidney function, slowly back towards baseline 3) Off heparin drip 4) No further cardiovascular issues, cardiovascularly stable for discharge Problem Qualifiers (1) 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
--- NOTE | 2016-10-30 12:45 | HHI.PR ---
Subjective Patient symptoms today Pt seen and examined. Feels well. Urine clear. Objective Vital Signs Vital Signs Date Time Temp Pulse Resp B/P Pulse Ox O2 Delivery O2 Flow Rate FiO2 10/30/16 10:17 94 Nasal Cannula 4.00 10/30/16 06:00 78 10/30/16 05:00 78 10/30/16 04:00 99.2 81 12 129/74 94 10/30/16 04:00 79 10/30/16 03:00 78 10/30/16 02:00 84 10/30/16 01:00 80 10/30/16 00:00 77 10/30/16 00:00 98.7 83 12 139/92 94 10/29/16 23:00 74 10/29/16 22:00 80 10/29/16 21:00 86 10/29/16 20:00 82 10/29/16 20:00 93 Nasal Cannula 3.00 10/29/16 20:00 99.0 78 146/89 93 10/29/16 19:00 82 10/29/16 17:22 96 Nasal Cannula 3.00 10/29/16 16:43 16 10/29/16 16:00 97.9 86 18 154/84 94 10/29/16 16:00 80 Result Diagram: 10/29/16 0610/29/16 0607 Objective Remarks Abd:soft,nt,nd Healy in place and draining cloudy urine 10/20 Abd:soft,nt,nd Healy in place and draining cloudy urine 10/21 Abd:soft,nt,nd Healy draining clear urine 10/22 Abd:soft,nt,nd Healy draining clear urine 10/23 Abd:soft,nt,nd Healy draining clear urine 10/26 Abd:soft,nt,nd Healy draining clear urine 10/30 Abd:soft,nt,nd Healy draining clear urine Medications and IVs Current Medications Medications (Trade) Dose Ordered Sig/Yosi Route Start Time Stop Time Status Last Admin (Zofran Inj) 4 mg Q6H PRN IV 10/18/16 16:30 10/18/16 18:40 Miscellaneous Information 1 Q361D XX 10/18/16 16:30 10/18/16 16:30 (Chlorhexidine 2% Cloth) Taper DAILY@04 TOP 10/19/16 04:00 10/15/17 03:59 10/20/16 04:00 (Chlorhexidine 2% Cloth) 3 pack UNSCH PRN TOP 10/18/16 16:30 (Margarita-Colace) 1 tab BID PO 10/18/16 21:00 10/30/16 09:06 (D50w (Syr) Inj) 50 ml UNSCH PRN IV 10/19/16 10:30 (Ecotrin Ec) 81 mg DAILY PO 10/19/16 10:30 10/30/16 09:06 (Miralax) 17 gm DAILY PO 10/20/16 20:00 10/30/16 09:05 (Rocaltrol) 0.5 mcg DAILY PO 10/21/16 17:00 10/30/16 09:06 (Oscal) 1,000 mg Q8HR PO 10/21/16 22:00 10/30/16 06:51 (Santyl Oint) 1 applic DAILY TOPICAL 10/22/16 12:45 10/29/16 09:00 (Apresoline) 100 mg Q8HR PO 10/23/16 14:00 10/30/16 06:51 (Norvasc) 5 mg DAILY PO 10/24/16 10:00 10/30/16 09:06 (Lasix Inj) 20 mg BID@,18 IV PUSH 10/24/16 10:30 10/30/16 09:07 (Roxicodone) 20 mg Q4HR PRN PO 10/25/16 16:00 10/30/16 09:26 (Nitroglycerin 2% Oint) 0.5 inch Q6H TOPICAL 10/26/16 15:00 10/30/16 09:11 (Morphine Inj) 2 mg Q3H PRN IV PUSH 10/26/16 14:30 10/30/16 01:53 (Lipitor) 40 mg HS PO 10/26/16 21:00 10/29/16 11:57 (Tylenol) 650 mg Q4H PRN PO 10/27/16 09:00 10/27/16 09:18 (Toprol Xl) 50 mg DAILY PO 10/30/16 09:00 10/30/16 09:06 (Augmentin) 500 mg Q8HR PO 10/29/16 14:45 11/05/16 14:44 10/30/16 06:51 Assessment and Plan Assessment and Plan 61 y.o male s/p cystoscopy of appendico with placement of healy catheter for 1200cc Check Ucx results Maintain healy catheter Continue ABX and supportive measures 10/20 61 y.o male s/p cystoscopy of appendico with placement of healy catheter for 1200cc with ARF/CRF Creatinine at 6 UCx with GNR's Continue ABX 10/21 61 y.o male s/p cystoscopy of appendico with placement of healy catheter for 1200cc with ARF/CRF Creatinine at 6.0 from yesterday; today's pending UCx sensitive to Zosyn Maintain catheter drainage. 10/22 61 y.o male s/p cystoscopy of appendico with placement of healy catheter for 1200cc with ARF/CRF Creatinine at 5.6 today UCx sensitive to Zosyn Maintain catheter drainage. 10/23 61 y.o male s/p cystoscopy of appendico with placement of healy catheter for 1200cc with ARF/CRF Creatinine at 5.1 today Maintain catheter drainage until creatinine baselines to 2 range 10/26 61 y.o male s/p cystoscopy of appendico with placement of healy catheter for 1200cc with ARF/CRF Creatinine at 3.74 today Maintain catheter and do not remove/change Irrigate Q shift to keep from clogging. 10/30 61 y.o male s/p cystoscopy of appendico with placement of healy catheter for 1200cc with ARF/CRF Creatinine at 3.4 today Maintain catheter and do not remove/change Irrigate Q shift to keep from clogging. Pt will f/u as outpt. Maintain catheter until creatinine baselines to the 1-2 range if possible Austyn Shelton DO Oct 30, 2016 12:44
[2016-10-30] MEDS ORDERED: FURO1TAB62 PO (14:12)
[2016-10-30] MEDS: RESP: ALBUTEROL 2.5 MG/IPRATROPIUM 0.5 MG NEB (PRN) INH (20:58)
[2016-10-30] MEDS: ATORVASTATIN 40 MG TAB PO SCH (22:10)
[2016-10-31] VITALS (9 sets, daily range): BP systolic 114–125; BP diastolic 73–78; PULSE 72–85; RESP 16–20; TEMP 98.5–99.6; O2SAT 92–95
[2016-10-31] MEDS: NITROGLYCERIN 2% OINT 1 GM PACKET TOPICAL SCH ×2 (03:02→08:51)
[2016-10-31] MEDS: CHLORHEXIDINE GLUCONATE 2 % 1 PACK (2 CLOTHS) TOP SCH (04:00)
[2016-10-31] MEDS: hydrALAZINE HCL 100 MG TAB PO SCH (06:05)
[2016-10-31] MEDS: AMOXICILLIN/CLAVULANATE K 500 MG TAB PO SCH (06:05)
[2016-10-31] MEDS: CALCIUM CARBONATE 1.25 GM (CA 500 MG) TAB PO SCH (06:05)
[2016-10-31] MEDS: DOCUSATE SODIUM 50 MG/SENNA 8.6 MG TAB PO SCH (08:51)
[2016-10-31] MEDS: METOPROLOL SUCCINATE 25 MG EXTENDED RELEASE TAB PO SCH (08:51)
[2016-10-31] MEDS: CALCITRIOL 0.25 MCG CAP PO SCH (08:51)
[2016-10-31] MEDS: ASPIRIN EC 81 MG TABEC PO SCH (08:51)
[2016-10-31] MEDS: amLODIPine BESYLATE 5 MG TAB PO SCH (08:51)
[2016-10-31] MEDS: FUROSEMIDE 20 MG/2 ML VIAL IV PUSH SCH (08:52)
[2016-10-31] MEDS: POLYETHYLENE GLYCOL 17 GM PKG PO SCH (08:52)
[2016-10-31] MEDS: COLLAGENASE OINT 30 GM TUBE TOPICAL SCH (08:52)
--- NOTE | 2016-10-31 09:34 | HHI.NPPN ---
Subjective History of Present Illness 61-year-old male with past medical history of paraplegia, history of partial small-bowel obstruction, hypertension, hyperlipidemia, ischemic heart disease, chronic kidney disease, arthritis, anemia, history of neobladder formation with neurogenic bladder, left nephrectomy who was admitted with complaint of shortness of breath. The patient mainly came with shortness of breath and he was found to be severely acidotic with a very low pH of 6.99 and bicarb was very low and very high BUN and creatinine. The patient previously has a history of chronic kidney disease, although is not following with any home appliance technician. His creatinine was 2.1-2.2 which was his baseline when he was admitted last month. Additional Remarks No labs since 10/29. He is non oliguric, good response to Lasix. Review of Systems General Constitutional: Fatigue Respiratory Lungs: SOB Cardiovascular Cardiac: BAEZ Objective Data Data 10/30/16 10/31/16 19:00 07:00 Intake Total 1440 ml Output Total 1900 ml 1925 ml Balance -1900 ml -485 ml Intake Oral 1440 ml Output Urine Total 1900 ml 1425 ml Stool Total 500 ml Vital Signs Date Time Temp Pulse Resp B/P Pulse Ox O2 Delivery O2 Flow Rate FiO2 10/31/16 08:00 72 10/31/16 08:00 98.5 78 20 125/78 92 10/31/16 08:00 Nasal Cannula 4.00 10/31/16 06:00 74 10/31/16 05:00 78 10/31/16 04:00 95 Nasal Cannula 4.00 10/31/16 04:00 76 10/31/16 04:00 99.6 85 18 114/75 95 10/31/16 03:00 81 10/31/16 02:00 78 10/31/16 01:00 78 10/31/16 00:00 78 10/31/16 00:00 95 Nasal Cannula 4.00 10/31/16 00:00 99.1 77 20 125/73 95 10/30/16 23:00 78 10/30/16 22:00 76 10/30/16 21:00 76 10/30/16 21:00 95 Nasal Cannula 3.50 10/30/16 20:00 92 10/30/16 20:00 98.7 86 12 142/76 94 10/30/16 19:00 80 10/30/16 19:00 94 Nasal Cannula 4.00 10/30/16 15:59 78 10/30/16 12:00 98.3 90 20 135/90 93 10/30/16 10:17 94 Nasal Cannula 4.00 -: 10/29/16 0607 10/29/16 0607 Physical Exam General Appearance: Well Nourished, No Acute Distress, Comfortable Eyes Eye Exam: Pupils Equal Throat Throat Exam: Oral Mucosa [place] & Moist Neck Neck Exam: Neck Supple Pulmonary Resp Exam: Breath Sounds Equal, No Distress, Decreased Bases Cardiology CV Exam: Regular, Normal Sinus Rhythm Gastrointestinal/Abdomen GI Exam: Soft, Non-Tender, Bowel Sounds Present Extremeties Extremities Exam: Trace Edema Neurologic Neuro Exam: Alert, Awake, Oriented Psychiatric Psych Exam: Appropriate Responses Assessment/Plan Assessment Summary: VIJAY/Acute Renal Failure, CKD Stage III Electrolyte Assessment: Hypocalcemia, Hypokalemia, Metabolic Acidosis Problem List: (1) Leukocytosis (2) Acidemia (3) Respiratory distress (4) Paraplegia (5) UTI (urinary tract infection) (6) CKD (chronic kidney disease), stage III (7) Acute renal failure Plan Underlying CKD, and superimposed VIJAY. Repeat labs. Metabolic acidosis had resolved. Avoid nephrotoxic agents. Problem Qualifiers (1) UTI (urinary tract infection): Santiago Davenport MD Oct 31, 2016 09:34
--- NOTE | 2016-10-31 09:43 | HHI.PR ---
Subjective Remarks in no acute distress. denies chest pain. no new complaints. d/w the RN and no acute issues over night. Objective Vitals Vital Signs Date Time Temp Pulse Resp B/P Pulse Ox O2 Delivery O2 Flow Rate FiO2 10/31/16 09:31 16 10/31/16 08:00 72 10/31/16 08:00 98.5 78 20 125/78 92 10/31/16 08:00 Nasal Cannula 4.00 10/31/16 06:00 74 10/31/16 05:00 78 10/31/16 04:00 95 Nasal Cannula 4.00 10/31/16 04:00 76 10/31/16 04:00 99.6 85 18 114/75 95 10/31/16 03:00 81 10/31/16 02:00 78 10/31/16 01:00 78 10/31/16 00:00 78 10/31/16 00:00 95 Nasal Cannula 4.00 10/31/16 00:00 99.1 77 20 125/73 95 10/30/16 23:00 78 10/30/16 22:00 76 10/30/16 21:00 76 10/30/16 21:00 95 Nasal Cannula 3.50 10/30/16 20:00 92 10/30/16 20:00 98.7 86 12 142/76 94 10/30/16 19:00 80 10/30/16 19:00 94 Nasal Cannula 4.00 10/30/16 15:59 78 10/30/16 12:00 98.3 90 20 135/90 93 10/30/16 10:17 94 Nasal Cannula 4.00 I/O 10/30/16 10/30/16 10/30/16 10/31/16 10/31/16 10/31/16 06:59 14:59 22:59 06:59 14:59 22:59 Intake Total 540 ml 1440 ml Output Total 1725 ml 650 ml 1250 ml 1925 ml Balance -1185 ml -650 ml -1250 ml -485 ml Intake Oral 480 ml 1440 ml IV Total 60 ml Output Urine Total 1725 ml 650 ml 1250 ml 1425 ml Stool Total 500 ml Result Diagram: 10/29/16 0607 10/29/16 0607 Imaging Last Impressions Myocardial Perfusion Scan Nuc Med 10/28/16 0000 Signed Impressions: Service Date/Time: Friday, October 28, 2016 12:22 - CONCLUSION: 1. Fixed perfusion defects in the inferior and lateral wall most characteristic of prior myocardial infarction. No significant reversibility to suggest ischemia. 2. Ejection fraction within normal limits at 57%%. RISK CATEGORY: Intermediate (1-3%% Annual Mortality Rate) Nura Ramirez MD Chest X-Ray 10/26/16 0000 Signed Impressions: Service Date/Time: Wednesday, October 26, 2016 12:26 - CONCLUSION: 1. Cardia megaly with mild positive fluid balance. 2. Bibasilar airspace disease and questionable trace right pleural effusion. Jeremiah Caba MD Foot X-Ray 10/23/16 0000 Signed Impressions: Service Date/Time: Sunday, October 23, 2016 17:13 - CONCLUSION: Chronic changes and no definite signs of osteomyelitis. Deborah Dean MD Renal Ultrasound 10/18/16 0000 Signed Impressions: Service Date/Time: Tuesday, October 18, 2016 15:27 - CONCLUSION: 1. Hydronephrosis of the right kidney. 2. Cystectomy with neobladder. Alok Upton MD Abdomen/Pelvis CT 10/18/16 0000 Signed Impressions: Service Date/Time: Tuesday, October 18, 2016 16:07 - CONCLUSION: 1. There is hydronephrosis of the right kidney similar to previous study with neobladder and ileostomy. 2. 3 mm nonobstructing right renal calculus. 3. Left nephrectomy. Alok Upton MD Objective Remarks GENERAL: This is a well-nourished, well-developed patient, in no apparent distress. CARDIOVASCULAR: Regular rate and regular rhythm without murmurs, gallops, or rubs. RESPIRATORY: Clear to auscultation. Breath sounds equal bilaterally. No wheezes , rales, or rhonchi. GASTROINTESTINAL: Abdomen soft, non-tender, nondistended. Normal, active bowel sounds MUSCULOSKELETAL: Extremities without clubbing, cyanosis, or edema. NEURO: awake and alert. skin; ulcer on the left heel Medications and IVs Current Medications Sodium Bicarbonate 50 meq 50 meq ONCE ONCE IV PUSH Last administered on t 15:34; Start 10/18/16 at 14:30; Stop 10/18/16 at 14:31; Status DC Sodium Bicarbonate/ Dextrose (Sodium Bicarbonate 8.4% Inj/D5W 1000 ml Inj) 1, 150 ml @ 150 mls/hr Q7H40M IV Last administered on 10/20/16 01:17; Start at 15:00; Stop 10/20/16 at 16:33; Status DC Dextrose (D50w (Vial) Inj) 25 ml UNSCH PRN IV PUSH HYPOGLYCEMIA-SEE COMMENTS; Start 10/18/16 at 14:30; Stop 10/19/16 at 10:29; Status DC Insulin Human Regular (NovoLIN R SUPPLEMENTAL SCALE) 1 ACHS AND 3AM SQ ; Start 10/18/16 at 16:00; Stop 10/19/16 at 10:34; Status DC Sodium Bicarbonate 150 meq 150 meq ONCE ONCE IV PUSH Last administered on 10/18 15:20; Start 10/18/16 at 14:45; Stop 10/18/16 at 14:46; Status DC Piperacillin Sod/ Tazobactam Sod (Zosyn 2.25 Gm Premix) 50 ml @ 100 mls/hr Q8H IV Last administered on 10/29/16 11:58; Start 10/18/16 at 17:00; Stop 10/29/16 at 14:36; Status DC Ondansetron HCl (Zofran Inj) 4 mg Q6H PRN IV NAUSEA OR VOMITING Last administered on 10/18/16 18:40; Start 10/18/16 at 16:30 Albuterol/ Ipratropium (Duoneb Neb) 1 ampule Q2HR NEB PRN INH WHEEZING Last administered on 10/30/16 20:58; Start 10/18/16 at 16:30 Heparin Sodium (Porcine) (Heparin Inj) 5,000 units Q12H SQ Last administered on 10/25/16 17:22; Start 10/18/16 at 18:00; Stop 10/26/16 at 14:05; Status DC Miscellaneous Information 1 [id number] Last administered on 10/18/16 16:30; Start 10/18/16 at 16:30 Chlorhexidine Gluconate (Chlorhexidine 2% Cloth) Taper DAILY@04 TOP Last administered on 10/20/16 04:00; Start 10/19/16 at 04:00; Stop 10/15/17 at 03:59 Chlorhexidine Gluconate (Chlorhexidine 2% Cloth) 3 pack UNSCH PRN TOP HYGIENIC CARE; Start 10/18/16 at 16:30 Senna/Docusate Sodium (Margarita-Colace) 1 tab BID PO Last administered on 10/31/16 08:51; Start 10/18/16 at 21:00 Calcium Acetate 1334 mg 1,334 mg TID PO Last administered on 10/21/16 09:56; Start 10/19/16 at 09:00; Stop 10/21/16 at 16:52; Status DC Calcium Gluconate/ Dextrose (Calcium Gluconate Inj/D5W 100 ml Inj) 120 ml @ 120 mls/hr ONCE ONCE IV Last administered on 10/19/16 00:54; Start 10/19/16 at 01:00; Stop 10/19/16 at 01:59; Status DC Sodium Bicarbonate (Sodium Bicarbonate 8.4% Inj) 50 meq STK-MED ONCE .ROUTE ; Start 10/19/16 at 05:42; Stop 10/19/16 at 05:43; Status DC Sodium Bicarbonate 100 meq 100 meq NOW ONCE IV PUSH Last administered on 05:51; Start 10/19/16 at 06:00; Stop 10/19/16 at 06:01; Status DC Potassium Chloride 100 ml @ 50 mls/hr Q2H IV Last administered on 10/19/16 13 :22; Start 10/19/16 at 10:00; Stop 10/19/16 at 13:59; Status DC Calcium Gluconate 2 gm/Sodium Chloride 120 ml @ 120 mls/hr ONCE ONCE IV Last administered on 10/19/16 10:13; Start 10/19/16 at 10:30; Stop 10/19/16 at 11:29 ; Status DC Magnesium Sulfate/ Dextrose 100 ml @ 100 mls/hr Q1H IV Last administered on 11:25; Start 10/19/16 at 10:00; Stop 10/19/16 at 11:59; Status DC Cefepime HCl 2000 mg/Sodium Chloride 100 ml @ 200 mls/hr Q8H IV ; Start at 11:00; Stop 10/19/16 at 11:00; Status DC Sodium Chloride (NS 500 ml Inj) 500 ml @ 500 mls/hr BOLUS ONCE IV Last administered on 10/19/16 10:15; Start 10/19/16 at 10:00; Stop 10/19/16 at 10:59 ; Status DC Dextrose (D50w (Syr) Inj) 50 ml UNSCH PRN IV HYPOGLYCEMIA-SEE COMMENTS; Start 10/19/16 at 10:30 Glucagon (Glucagon Inj) 1 mg UNSCH PRN OTHER HYPOGLYCEMIA-SEE COMMENTS; Start 10/19/16 at 10:00; Stop 10/24/16 at 09:55; Status DC Insulin Aspart (NovoLOG SUPPLEMENTAL SCALE) 1 ACHS SLIDING SCALE SQ Last administered on 10/20/16 21:06; Start 10/19/16 at 11:00; Stop 10/26/16 at 15:49 ; Status DC Aspirin 81 mg 81 mg DAILY PO Last administered on 10/31/16 08:51; Start at 10:30 Linezolid (Zyvox 600 Mg Premix) 300 ml @ 300 mls/hr Q12H IV Last administered on 10/22/16 11:56; Start 10/19/16 at 11:00; Stop 10/22/16 at 13:55; Status DC Potassium Bicarb/ Potassium Chloride 50 meq 50 meq NOW ONCE PO Last administered on 10/19/16 10:44; Start 10/19/16 at 10:45; Stop 10/19/16 at 10:46 ; Status DC Calcium Gluconate 2 gm/Sodium Chloride 120 ml @ 120 mls/hr NOW IV Last administered on 10/19/16 21:47; Start 10/19/16 at 21:45; Stop 10/19/16 at 22:44 ; Status DC Potassium Chloride 100 ml @ 50 mls/hr Q2H IV Last administered on 10/20/16 01 :19; Start 10/19/16 at 22:00; Stop 10/20/16 at 01:59; Status DC Calcium Gluconate 2 gm/Sodium Chloride 120 ml @ 120 mls/hr NOW ONCE IV Last administered on 10/20/16 10:27; Start 10/20/16 at 10:00; Stop 10/20/16 at 10:59 ; Status DC Sodium Chloride (NS 1000 ml Inj) 1,000 ml @ 100 mls/hr Q10H IV Last administered on 10/23/16 14:45; Start 10/20/16 at 16:45; Stop 10/24/16 at 09:55 ; Status DC Polyethylene Glycol (Miralax) 17 gm DAILY PO Last administered on 10/30/16 09: 05; Start 10/20/16 at 20:00 Oxycodone HCl (Roxicodone) 10 mg Q6H PRN PO PAIN SCALE 7 TO 10 Last administered on 10/25/16 09:40; Start 10/21/16 at 10:15; Stop 10/25/16 at 15:33 ; Status DC Potassium Bicarb/ Potassium Chloride (K-Lyte Cl Eff) 50 meq NOW ONCE PO Last administered on 10/21/16 12:51; Start 10/21/16 at 13:00; Stop 10/21/16 at 13:01 ; Status DC Calcitriol (Rocaltrol) 0.5 mcg DAILY PO Last administered on 10/31/16 08:51; Start 10/21/16 at 17:00 Calcium Carbonate (Oscal) 1,000 mg Q8HR PO Last administered on 10/31/16 06:05 ; Start 10/21/16 at 22:00 Dofetilide (Tikosyn) 500 mcg BID PO ; Start 10/21/16 at 21:00; Stop 10/21/16 at 21:43; Status DC Potassium Chloride (KCl) 40 meq ONCE ONCE PO Last administered on 10/22/16 07 :22; Start 10/22/16 at 06:45; Stop 10/22/16 at 06:46; Status DC Calcium Gluconate 1 gm 1 gm ONCE ONCE IV PUSH ; Start 10/22/16 at 06:45; Stop 10/22/16 at 06:46; Status Cancel Calcium Gluconate/ Sodium Chloride (Calcium Gluconate Inj/NS Inj) 110 ml @ 220 mls/hr ONCE ONCE IV Last administered on 10/22/16 08:19; Start 10/22/16 at 07 :00; Stop 10/22/16 at 07:29; Status DC Hydralazine HCl (Apresoline) 50 mg Q8HR PO Last administered on 10/23/16 06:09 ; Start 10/22/16 at 12:45; Stop 10/23/16 at 11:12; Status DC Collagenase (Santyl Oint) 1 applic DAILY TOPICAL Last administered on 10/31/16 08:52; Start 10/22/16 at 12:45 Linezolid (Zyvox) 600 mg Q12HR PO Last administered on 10/30/16 09:10; Start at 21:00; Stop 10/30/16 at 12:00; Status DC Hydralazine HCl (Apresoline) 100 mg Q8HR PO Last administered on 10/31/16 06:05 ; Start 10/23/16 at 14:00 Amlodipine Besylate (Norvasc) 5 mg DAILY PO Last administered on 10/31/16 08:51 ; Start 10/24/16 at 10:00 Metoprolol Succinate (Toprol Xl) 25 mg DAILY PO Last administered on 10/28/16 09:46; Start 10/24/16 at 10:00; Stop 10/29/16 at 12:15; Status DC Furosemide (Lasix Inj) 20 mg BID@09,18 IV PUSH Last administered on 10/31/16 08 :52; Start 10/24/16 at 10:30 Albumin Human (Albumin 25% Inj) 25 gm Q12H IV Last administered on 10/27/16 17: 21; Start 10/24/16 at 18:45; Stop 10/27/16 at 18:19; Status DC Oxycodone HCl (Roxicodone) 20 mg Q4HR PRN PO PAIN SCALE 7 TO 10 Last administered on 10/31/16 08:51; Start 10/25/16 at 16:00 Nitroglycerin (Nitrostat Sl) 0.4 mg ONCE ONCE SL Last administered on 14:27; Start 10/26/16 at 12:30; Stop 10/26/16 at 12:31; Status DC Potassium Chloride (KCl) 20 meq ONCE ONCE PO Last administered on 10/26/16 14 :17; Start 10/26/16 at 12:30; Stop 10/26/16 at 12:31; Status DC Nitroglycerin 0.5 inch 0.5 inch Q6H TOPICAL Last administered on 10/31/16 08:51 ; Start 10/26/16 at 15:00 Heparin Sodium/ Dextrose (Heparin-D5W Inj) 250 ml @ 0 mls/hr TITRATE IV Last administered on 10/29/16 01:44; Start 10/26/16 at 14:15; Stop 10/29/16 at 12:15; Status DC Morphine Sulfate (Morphine Inj) 2 mg Q3H PRN IV PUSH chest pain Last administered on 10/30/16 22:08; Start 10/26/16 at 14:30 Atorvastatin Calcium (Lipitor) 40 mg HS PO Last administered on 10/30/16 22:10 ; Start 10/26/16 at 21:00 Acetaminophen (Tylenol) 650 mg Q4H PRN PO HEADACHE Last administered on 09:18; Start 10/27/16 at 09:00 Regadenoson (Lexiscan Inj) 0.4 mg STK-MED ONCE .ROUTE Last administered on 11:46; Start 10/28/16 at 11:46; Stop 10/28/16 at 11:47; Status DC Aminophylline (Aminophylline Inj) 250 mg STK-MED ONCE .ROUTE Last administered on 10/28/16 12:15; Start 10/28/16 at 12:15; Stop 10/28/16 at 12:16; Status DC Metoprolol Succinate (Toprol Xl) 50 mg DAILY PO Last administered on 10/31/16 08:51; Start 10/30/16 at 09:00 Amoxicillin/ Clavulanate Potassium (Augmentin) 500 mg Q8HR PO Last administered on 10/31/16 06:05; Start 10/29/16 at 14:45; Stop 11/05/16 at 14:44 A/P Assessment and Plan A/p NSTEMI -Similar chest pain from his prior VT. Previously saw Dr. Coelho but has not seen him for many years. -continue aspirin and metoprolol and statin. -stress test with no reversible ischemia -cardiology following- d/w Dr. Chung and cleared for discharge. Acute respiratory failure- resolved -Patient on Lasix. Continue a strict ins and outs. Avoid nephrotoxins. Acute kidney injury-secondary to obstructive uropathy S/P left nephrectomy, cystectomy with neobladder -Healy place with improvement in symptoms. -Urology follow-up appreciated-cleared for discharge with healy cath and outpatient follow-up. -cleared for discharge per nephrology. - Strict I/Os Hydronephrosis right kidney -Due to the above. Sepsis -Secondary to the above. Treated. Resolved. Hypertension H/O CABG, cardiac stent -Initially antihypertensive medication was held secondary to hypotension. Continue hydralazine. Continue metoprolol and amlodipine. Adjust accordingly. -Continue ASA 81 mg/day Chronic Left heel [id number] -Infectious disease following. -continue Zyvox per ID. -Cultures growing proteus mirabilis, MRSA, group D enterococcus. -Wound care nurse consulted. UTI -Growing enterococcus faecalis, Klebsiella pneumonia ESBL positive, protease mirabilis - switched to Augmentin -per ID. S/P C5-C6 fusion, C7 discectomy -Stable. Prophylaxis: GI Prophylaxis Discharge Planning dc to [place] today . see med list. f/u;pcp,nephrology,cardiology and urology. f/u with wound care. d/w the patient and RN. previously d/w and . time spent 35 min. Tyler Gallegos MD Oct 31, 2016 09:43
== END 2016-10-31 11:45 | DRG 871 ==
LOC: NEPC 12:01 → NEDA 14:40 → HCVR 21:09 → HIMN 10-19 20:35 → N07B 10-21 13:06 → HCIS 10-26 15:37
PROVIDERS: ADMIT Internal Medicine; ATTEND Internal Medicine
PROC: 0T9B80Z Drainage of Bladder with Drainage Device, Via Natural or Artificial Opening Endoscopic (ICD-10-PCS; 2016-10-18)
PROC: 5A09357 Assistance with Respiratory Ventilation, Less than 24 Consecutive Hours, Continuous Positive Airway Pressure (ICD-10-PCS; principal; 2016-10-18 17:59)
DX: A41.81 Sepsis due to Enterococcus (principal); J96.00 Acute respiratory failure, unspecified whether with hypoxia or hypercapnia; I21.4 Non-ST elevation (NSTEMI) myocardial infarction; I13.0 Hypertensive heart and chronic kidney disease with heart failure and stage 1 through stage 4 chronic kidney disease, or unspecified chronic kidney disease; E87.2 Acidosis; N17.9 Acute kidney failure, unspecified; G82.20 Paraplegia, unspecified; N18.3 Chronic kidney disease, stage 3 (moderate); I50.9 Heart failure, unspecified; L89.624 Pressure ulcer of left heel, stage 4; Z68.43 Body mass index [BMI] 50.0-59.9, adult; J98.11 Atelectasis; N13.6 Pyonephrosis; L89.309 Pressure ulcer of unspecified buttock, unspecified stage; A41.59 Other Gram-negative sepsis; E66.01 Morbid (severe) obesity due to excess calories; E78.5 Hyperlipidemia, unspecified; E83.51 Hypocalcemia; D64.9 Anemia, unspecified; I25.10 Atherosclerotic heart disease of native coronary artery without angina pectoris; N31.9 Neuromuscular dysfunction of bladder, unspecified; Q05.9 Spina bifida, unspecified; I25.2 Old myocardial infarction; E87.6 Hypokalemia; M19.90 Unspecified osteoarthritis, unspecified site; Z86.14 Personal history of Methicillin resistant Staphylococcus aureus infection; Z89.422 Acquired absence of other left toe(s); Z89.431 Acquired absence of right foot; Z90.6 Acquired absence of other parts of urinary tract; Z90.5 Acquired absence of kidney; Z91.041 Radiographic dye allergy status; Z93.3 Colostomy status; Z93.52 Appendico-vesicostomy status; Z95.1 Presence of aortocoronary bypass graft; Z95.5 Presence of coronary angioplasty implant and graft; Z98.1 Arthrodesis status
CPT/HCPCS: 36600; 71010; 73620; 74176; 76775; 76937; 78452; 80048; 80053; 80061; 80069; 80076; 81001; 82570; 82805; 82948; 83605; 83735; 83880; 84100; 84155; 84300; 84484; 85007; 85025; 85027; 85610; 85730; 86403; 87015; 87040; 87070; 87077; 87086; 87102; 87116; 87147; 87186; 87205; 87206; 87641; 93005; 93017; 93306; 94002; 94150; 94640; 94664; 94667; 94668; A9502; C1769; J0280; J0610; J1644; J1815; J1940; J2020; J2270; J2405; J2543; J2785; J3475; J3480; J7030; J7040; J7070; P9047

== ENCOUNTER 2016-11-12 22:22 | Inpatient (IN) | payer MEDICARE, OTHER ==
[~2016-11-12 22:22] MED LIST changes: +ATOR40TA16 PO; +AUGM500T7 PO; +BENGAY TOPICAL; +CALC.25 PO; -CALC0.25 PO; +FLUO0.013 TOPICAL; +FURO1TAB62 PO; +LIDO5DIS5 T-DERMAL; +METO25TA6 PO; +ONDA4TAB7 SL; -OXYC-395 PO; -OXYC-396 PO; +OXYC30TA PO; +POLY17S PO; +SENN1TAB PO; +Simethicone Chew CHEW; -TOPR25TA PO; +ZYVO600T PO
[2016-11-12] MEDS ORDERED: OXYC-392 PO (22:34)
[2016-11-12] MEDS ORDERED: BACL10TA PO (22:34)
[2016-11-13] VITALS (7 sets, daily range): BP systolic 113–159; BP diastolic 62–77; PULSE 58–76; RESP 18; TEMP 98.2–99.1; O2SAT 94–98
[2016-11-13] MEDS ORDERED: SODIUM CHLORIDE 0.9% FLUSH 10 ML FLUSH IV FLUSH PRN (02:00)
[2016-11-13] MEDS ORDERED: LACTULOSE SYRUP 20 GM/30 ML CUP PO PRN (02:00)
[2016-11-13] MEDS ORDERED: SENNOSIDES 8.6 MG TAB PO PRN (02:00)
[2016-11-13] MEDS ORDERED: BISACODYL 10 MG SUPP RECTAL PRN (02:00)
[2016-11-13] MEDS ORDERED: ONDANSETRON HCL 4 MG/2 ML VIAL IVP PRN (02:00)
[2016-11-13] MEDS ORDERED: NALOXONE HCL 0.4 MG/ML AMP IV PRN (02:00)
[2016-11-13] MEDS ORDERED: HEPARIN-D5W 25,000 U/250 ML 250 ML IV SCH (03:00)
[2016-11-13 04:13] LABS: AUTOMATED NEUTROPHIL # 5.5 TH/MM3 (1.8-7.7); BASOPHIL # 0.1 TH/MM3 (0-0.2); BASOPHIL % 0.8 % (0.0-2.0); EOSINOPHIL # 0.3 TH/MM3 (0-0.4); EOSINOPHIL % 3.9 % (0.0-4.0); HEMATOCRIT 25.9 % (39.0-51.0); HEMO FLAGS DIFF FINAL; LYMPH % 21.3 % (9.0-44.0); LYMPHOCYTE # 1.8 TH/MM3 (1.0-4.8); MEAN CORPUSCULAR HGB CONC 32.2 % (32.0-36.0); MONO % 8.2 % (0.0-8.0); NEUT % 65.8 % (16.0-70.0); PLATELET COUNT 258 TH/MM3 (150-450); RED BLOOD COUNT 3.09 MIL/MM3 (4.50-5.90); RED CELL DISTRIBUTION WIDTH 21.7 % (11.6-17.2); WHITE BLOOD COUNT 8.4 TH/MM3 (4.0-11.0)
[2016-11-13 04:19] LABS: APTT (PATIENT) 26.9 SEC (24.3-30.1); INTERNATIONAL NORMALIZED RATIO 1.1 RATIO; PROTHROMBIN TIME - PATIENT 11.9 SEC (9.8-11.6)
[2016-11-13 04:33] LABS: BICARBONATE 24.2 MEQ/L (21.0-32.0); POTASSIUM 4.5 MEQ/L (3.5-5.1)
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
[2016-11-13] MEDS: DOCUSATE SODIUM 50 MG/SENNA 8.6 MG TAB PO SCH ×2 (08:46→21:22)
[2016-11-13] MEDS: MULTIVITAMIN TAB PO SCH (08:46)
[2016-11-13] MEDS: hydrALAZINE HCL 100 MG TAB PO SCH ×3 (08:46→17:18)
[2016-11-13] MEDS: CALCITRIOL 0.25 MCG CAP PO SCH (08:47)
[2016-11-13] MEDS: POLYETHYLENE GLYCOL 17 GM PKG PO SCH (08:47)
[2016-11-13] MEDS: CYANOCOBALAMIN 1,000 MCG TAB PO SCH (08:47)
[2016-11-13] MEDS: BACLOFEN 10 MG TAB PO SCH ×2 (08:47→21:22)
[2016-11-13] MEDS: ASPIRIN 81 MG CHEW TAB CHEW SCH (08:47)
[2016-11-13] MEDS: FERROUS SULFATE 325 MG (65 MG ELEMENTAL IRON) TAB PO SCH ×3 (08:47→17:18)
[2016-11-13] MEDS: FUROSEMIDE 20 MG TAB PO SCH ×2 (08:47→17:18)
[2016-11-13] MEDS: METOPROLOL SUCCINATE 50 MG EXTENDED RELEASE TAB PO SCH (08:47)
[2016-11-13] MEDS: COLLAGENASE OINT 30 GM TUBE TOPICAL SCH (08:47)
[2016-11-13] MEDS: ASCORBIC ACID 500 MG TAB PO SCH (08:47)
[2016-11-13] MEDS: SODIUM CHLORIDE 0.9% FLUSH 10 ML FLUSH IV FLUSH SCH ×2 (08:47→21:00)
[2016-11-13] MEDS ORDERED: diphenhydrAMINE HCL 50 MG/ML VIAL ONE (12:48)
[2016-11-13] MEDS ORDERED: methylPREDNISolone SOD SUCC 125 MG/2 ML VIAL ONE (12:49)
[2016-11-13] MEDS ORDERED: MIDAZOLAM HCL 2 MG/2 ML VIAL ONE (13:05)
[2016-11-13] MEDS ORDERED: SODIUM CHLOR 0.9% 250 ML INJ 250 ML IV PRN (13:45)
[2016-11-13] MEDS ORDERED: MISC INFORMATION XX ONE (13:45)
[2016-11-13] MEDS ORDERED: ATROPINE SULFATE 1 MG/ML VIAL IV PRN (13:45)
--- NOTE | 2016-11-13 14:02 | CATHPROC ---
[facility] HIS Report Study Information Study Number Admission Scheduled Start Study Start [id number] Nov 12 2016 11:55PM 11/13/2016 Nov 13 2016 12:12PM [place] [facility] Cardiac Catheterization Admit Source Facility Department Emergency department [facility] - [facility] Physician and Clinical Staff Initial Ricki Nascimento [employer] Plant Operator Celina Mack,RN Recorder Dea Pollack,RT(R) (BS) Scrub Glenn Guillen RCIS(BS) Scrub Celina Mack,MIKEY Scrub Celina Orlando,RT(R) Procedures Performed Procedure Location (Site) Vessel Name Coronary Angiograms LCA Left Coronary Coronary Angiograms RCA Right Coronary Coronary Angiograms GARDUNO Graft Left Coronary Coronary Angiograms SVG-OM CIRC L Heart Cath Wire insertion Fem Art (right) Femoral Art Equipment Time Crime Specialist Description Size Mfg Part Number Used/Scraped TRANSDUCER, TRUWAVE [id number] 12:46 [address] * Used W/STOCKCOCK *[id number] INTRODUCER SET, [id number] 13:09 [employer] FR 5 Used MICROPUNCTURE *[id number] *[id number] *[id number] [id number] *[id number] 12:46 [employer] PACK, CCL CUSTOM * Used *[id number] 12:46 [email or web address] MEDICAL SHEATH, FR5.5 PRELUDE 11CM FR 5 [id number] Used [id number] 12:46 [email or web address] MEDICAL WIRE, 3MMJ .035 180CM 180CM Used *[id number] 12:46 NAMIC MANIFOLD, 4 PORT * Used *[id number] 12:46 [employer] OMNIPAQUE, 350 MG, 150ML 150ML [id number] Used [id number] 12:46 GARCIA MEDICAL BLANKET,WARM AIR CCL * Used *[id number] 13:25 [employer]UM[employer] MEDICAL SHEATH, FR5 TERUMO (10CM) FR 5 Used *[id number] 13:25 [employer] MEDICAL SHEATH, FR5 TERUMO (10CM) FR 5 Used *[id number] 13:25 [employer] MEDICAL SHEATH, FR5 TERUMO (10CM) FR 5 Used *[id number] History: Allergies Allergy Reaction Compazine MUSCLE CONTRACTURES Contrast Media Anaphylaxis Thorazine MUSCLE CONTRACTURES *MDRO Multi-Drug Resistant MRSA Organism Zosyn burning iohexol Anaphylaxis prochlorperazine MUSCLE CONTRACTURES diatrizoate meglumine Anaphylaxis gadoteridol Anaphylaxis gadodiamide Anaphylaxis chlorpromazine MUSCLE CONTRACTURES iodixanol Anaphylaxis gadobenic acid Anaphylaxis History: Risk Factors Family History of Hypertension Dyslipidemia Previous [place] Previous Heart Failure Premature CAD Yes Yes No No No Prior Valve Prior PCI Prior PCIDate Prior CABG Prior CABGDate Surgery No Yes 03/29/2000 Yes 01/27/2001 Cerebrovascular Peripheral Artery Chronic Lung On Dialysis Diabetes Disease Disease Disease No No No No No History: Symptoms/Diagnosis Selection Items Chest pain History: Stress Tests Stress or Imaging Studies Performed Yes Standard Exercise Stress Test No Stress Echo No Stress Test SPECT Stress Test SPECT Result Stress Test SPECT Ischemia Risk/Extent Yes Positive Low Stress Test CMR No Cardiac CTA Coronary Calcium Score No No History: Other Current Smoker No Labs Hgb (g/dl) Hct (%) WBC (l/cumm) Platelets (thousands) 11.60-17.00 35.00-51.00 4.00-11.00 150.00-450.00 8.3 25.9 8.4 258 Glucose (mg/dl) BUN (mg/dl) Creatinine (mg/dl) BUN:Creatinine (1:x) 74.00-106.00 7.00-18.00 0.50-1.30 10.00-20.00 115 51 2.8 18.2 Na (meq/l) K (meq/l) 136.00-145.00 3.50-5.10 14.2 4.5 INR (PTT:PT) 0.90-1.10 1.1 CPK-MB (ng/ML) 0.50-3.60 Not Drawn Medication Medication Total Dose (Bolus/Oral) Medication Total Dosage/Unit 1% XYLOCAINE 20 mL BENADRYL 25 mg FENTANYL 25 mcg PEPCID 20 mg SOLU-MEDROL 125 mg VERSED 0.5 mg Medications (Bolus/Oral) Medication Time Given Dosage/Unit Administered By Reason BENADRYL 11/13/2016 1:00:10 PM 25 mg Hesher, Celina 25 mg BENADRYL given in lab by Celina Mack, RN in Left shoulder via Peripheral IV. SOLU-MEDROL 11/13/2016 1:01:09 PM 125 mg Hesher, Celina 125 mg SOLU-MEDROL given in lab by Celina Mack RN in Left shoulder via Peripheral IV. 1% XYLOCAINE 11/13/2016 1:01:53 PM 20 mL Ricki Chung 20 mL 1% XYLOCAINE given in lab by Ricki Chung in Right Groin via Subcutaneous. PEPCID 11/13/2016 1:02:46 PM 20 mg Celina Mack 20 mg PEPCID given in lab by Celina Mack RN in Left shoulder via Peripheral IV. VERSED 11/13/2016 1:08:19 PM 0.5 mg Celina Mack 0.5 mg VERSED given in lab by Celina Mack RN in Left shoulder via Peripheral IV. FENTANYL 11/13/2016 1:09:33 PM 25 mcg Celina Mack 25 mcg FENTANYL given in lab by Celina Mack RN in Left shoulder via Peripheral IV. Medication (Drip) Medication Time Given Dosage/Unit Concentration/Unit Diluent (ml) Solution IV Solutions 11/13/2016 12:26:36 PM 0 mL (IV) 500 NaCl .9 IV Solutions given in lab by Celina Mack RN in Left Forearm via Peripheral IV. Pump/Drip Flow = 1 00 ml/hr using NaCl .9. Initial Case Assessment Cardiovascular HR Rhythm NIBP Chest Pain 66 reg 151/91 0 Edema Present Skin color Skin None Normal Warm Dry Circulatory - Right Pulses Femoral 1 Scale (0,1,2,3,4,d) Circulatory - Left Pulses Femoral 1 Scale (0,1,2,3,4,d) Circulatory - Lower Extremities Color Lower Right Color Lower Left Normal Normal Neurological State Oriented to time-place- Alert Moves all extremities person Respiration - General Respiration Rate SpO2 (%) (B/min) 15 96 Chronological Log Time Study Chronological Log 12:25:42 Patient arrived via Bed. 12:25:43 Patient Name, D.O.B, / Armband Verified By R.N. 12:25:44 Consent signed by the physician and the patient and verified by the [facility] staff. 12:25:45 Pre-op and post- op instructions given; patient acknowledges understanding of instructions. 12:25:47 Verbal Stimulation=2 Physical Stimulation=2 Airway=2 Respiration=2 TOTAL=8. (0=absent, 1=li mited, 2=present) 12:25:58 Presedation assessment performed by Dust Mixer RN. 12:26:27 Patient has been NPO for More than 6Hrs. 12:26:28 Skin Breakdown none per pt 12:26:31 Patient Warmer Placed on the Table. 12:26:35 A # 20 IV was noted in the Forearm (left). Grade = 0 Was not patent. RN replaced. IV Solutions given in lab by Celina Mack RN in Left Forearm via Peripheral IV. Pump/Drip Fl ow = 100 ml/hr using 12:26:36 NaCl .9. 12:26:37 History and physical on the chart or being dictated. Assessment: Initial Case, HR=66 BPM, Rhythm=reg, VCWZ=757/91 mmhg, Chest Pain=0, Edema=None, Co abner=Normal, Skin = Warm, Dry Right Pulses: Femoral=1 Left Pulses: Bill Ped=1, Femoral=1 12:26:40 Lower Right Extremities: Color=Normal Lower Left Extremities: Color=Normal Neurological: State=Alert, Ox3, WHITE Respiration: Resp=15 B/min, SpO2=96 % 12:38:21 Reference ECG taken Vitals capture started with the following parameters, Patient=Adult, Interval=3 min, Initial Pr hwhkbr=465 mmHg, 12:41:23 Deflation Rate=5 mmHg, Cuff placed on Right Arm 12:42:05 HR=66 bpm, EGEM=914/91 mmhg, SpO2=94.0 %, Resp=14 B/min, Pain=0, Min=10, Heredia=2 12:45:36 HR=66 bpm, BDIL=308/91 mmhg, SpO2=93.0 %, Resp=18 B/min, Pain=0, Min=10, Heredia=2 12:45:50 Bilateral groins prepped with 2% chlorhexidine, and with a 3 min. waiting time. 12:47:59 HR=66 bpm, AMQJ=648/92 mmhg, SpO2=96.0 %, Resp=15 B/min, Pain=0, Min=10, Heredia=2 12:51:04 HR=62 bpm, MURK=505/84 mmhg, SpO2=93.0 %, Resp=14 B/min, Pain=0, Min=10, Heredia=2 12:53:17 Pressure channel 1 zeroed. 12:54:00 HR=62 bpm, LZOS=877/92 mmhg, SpO2=97.0 %, Resp=17 B/min, Pain=0, Min=10, Heredia=2 12:56:08 A # 20 IV was noted in the Subclav. Vein (Lft. Grade = 0 12:57:02 HR=68 bpm, KURG=759/101 mmhg, SpO2=95.0 %, Resp=13 B/min, Pain=0, Min=10, Heredia=2 Time Out. Correct patient, correct procedure,correct physician, power injector not loaded with contrast with surgical 12:59:32 team present. Time Out Concurred by MD, individual staff in procedure 12:59:49 Case Start 13:00:10 25 mg BENADRYL given in lab by Celina Mack RN in Left shoulder via Peripheral IV. 13:00:37 HR=66 bpm, UNWV=574/100 mmhg, SpO2=96.0 %, Resp=16 B/min, Pain=0, Min=10, Heredia=2 13:01:09 125 mg SOLU-MEDROL given in lab by Celina Mack RN in Left shoulder via Peripheral IV. 13:01:53 20 mL 1% XYLOCAINE given in lab by Ricki Chung in Right Groin via Subcutaneous. 13:02:46 20 mg PEPCID given in lab by Celina Mack, MIKEY in Left shoulder via Peripheral IV. 13:03:05 HR=63 bpm, LOCB=560/93 mmhg, SpO2=96.0 %, Resp=19 B/min, Pain=0, Min=10, Heredia=2 13:04:47 Holding pressure 13:06:05 HR=64 bpm, VXTP=921/103 mmhg, SpO2=98.0 %, Resp=21 B/min, Pain=0, Min=10, Heredia=2 13:06:57 Access site was Right Femoral Artery. 13:07:58 A INTRODUCER SET, MICROPUNCTURE FR 5 was advanced into the Fem Art (right) using the Percut aneous technique. 13:08:19 0.5 mg VERSED given in lab by Celina Mack RN in Left shoulder via Peripheral IV. A SHEATH, FR5.5 PRELUDE 11CM FR 5 was exchanged in the Fem Art (right). This was necessary in o rder to 13:08:29 accomodate a larger catheter. 13:09:33 25 mcg FENTANYL given in lab by Celina Mack, MIKEY in Left shoulder via Peripheral IV. 13:09:36 HR=63 bpm, LLXA=431/97 mmhg, SpO2=93.0 %, Resp=10 B/min, Pain=0, Min=10, Heredia=2 13:10:28 An injection in the Fem Art (right) was made through the SHEATH, FR5.5 PRELUDE 11CM FR 5. A JR 4.0 INFINITI CATHETER FR 5 was advanced over a wire. OMNIPAQUE, 350 MG, 150ML 150ML was us ed for 13:11:03 injections. 13:12:03 HR=60 bpm, HFPT=881/90 mmhg, SpO2=98.0 %, Resp=9 B/min, Pain=0, Min=10, Heredia=2 Recorded Pressure: LV, HR=59, Condition=Condition 1 13:12:10 (Left Ventricle) LV 125/5/12 Recorded Pressure: LV, Ao, HR=59, Condition=Condition 1 13:12:19 (Left Ventricle) LV 131/5/13, (Aorta) Ao 134/75/97 13:12:50 The RCA was injected and visualized at various angles. OMNIPAQUE, 350 MG, 150ML 150ML used . Recorded Pressure: Ao, HR=63, Condition=Condition 1 13:14:42 (Aorta) Ao 137/82/105 13:15:03 HR=60 bpm, EFJM=735/82 mmhg, SpO2=98.0 %, Resp=10 B/min, Pain=0, Min=10, Heredia=2 After removing the current catheter a JL 4.0 INFINITI CATHETER FR 5 was advanced over a WIRE, 3 MMJ .035 180CM 13:15:49 180CM. 13:16:17 The SVG-OM was injected and visualized at various angles. OMNIPAQUE, 350 MG, 150ML 150ML us ed. 13:18:04 HR=61 bpm, MMXX=112/85 mmhg, SpO2=97.0 %, Resp=10 B/min, Pain=0, Min=10, Heredia=2 13:18:52 The GARDUNO Graft was injected and visualized at various angles. OMNIPAQUE, 350 MG, 150ML 150M L used. 13:21:04 HR=57 bpm, RSRO=921/82 mmhg, SpO2=98.0 %, Resp=10 B/min, Pain=0, Min=10, Heredia=2 13:21:17 A WIRE, 3MMJ .035 180CM 180CM was inserted via Fem Art (right). 13:22:56 The Scrub is being relieved by Celina Orlando, RT(R). A SHEATH, FR5.5 MARIXA 11CM FR 5 was exchanged in the Fem Art (right). This was necessary in or anita to achieve 13:23:48 vascular hemostasis. 13:24:02 HR=66 bpm, XMIU=939/93 mmhg, SpO2=99.0 %, Resp=14 B/min, Pain=0, Min=10, Heredia=2 13:27:04 HR=63 bpm, LJIF=251/83 mmhg, SpO2=98.0 %, Resp=12 B/min, Pain=0, Min=10, Heredia=2 A JL 4.0 INFINITI CATHETER FR 5 was advanced over a wire. OMNIPAQUE, 350 MG, 150ML 150ML was us ed for 13:27:12 injections. 13:28:35 The LCA was injected and visualized at various angles. OMNIPAQUE, 350 MG, 150ML 150ML used . 13:30:01 HR=62 bpm, UOCB=251/85 mmhg, SpO2=98.0 %, Resp=9 B/min, Pain=0, Min=10, Heredia=2 13:33:44 HR=61 bpm, NKSZ=723/79 mmhg, SpO2=98.0 %, Resp=9 B/min, Pain=0, Min=10, Heredia=2 13:34:27 A WIRE, 3MMJ .035 180CM 180CM was inserted via Fem Art (right). 13:34:31 Catheter was removed 13:34:32 Wire removed 13:36:44 HR=64 bpm, LTYS=829/82 mmhg, SpO2=98.0 %, Resp=9 B/min, Pain=0, Min=10, Heredia=2 13:37:37 Case End 13:39:07 HR=58 bpm, LPGR=707/82 mmhg, SpO2=99.0 %, Resp=9 B/min, Pain=0, Min=10, Heredia=2 13:41:05 Catheter(s) removed without difficulty 13:41:10 Sterile dressing applied to site, Sheath will be pulled in DOCU 13:41:25 No case complications noted. 13:41:28 Cine recording checked. 13:41:33 Bedside Report will be given. 13:41:37 Contrast Scanned 13:41:39 A Left Heart Cath was performed. 13:42:08 HR=56 bpm, RFCS=320/86 mmhg, SpO2=99.0 %, Resp=20 B/min, Pain=0, Min=10, Heredia=2 13:44:00 Activated Clotting Time Drawn 13:45:08 HR=60 bpm, MLJC=119/83 mmhg, SpO2=98.0 %, Resp=10 B/min, Pain=0, Min=10, Heredia=2 13:46:44 ACT (Normal Range 90-180) = 152 13:48:06 CJGP=646/90 mmhg, Pain=0, Min=10, Heredia=2 13:56:37 Patient moved to [facility] End Study - Contrast Media Used In Study Contrast Total Opened (mL) Total Used (mL) Total Wasted (mL) Omnipaque 40 40 0 End Study - Maximum Contrast Load Max Contrast Load (mL) 206.3 End Study - Radiation Exposure Fluoro Time (minutes) 5.7 End Study - Patient Disposition Complications Transferred To Interventional Outcome No Dust [facility]er Holding No attempt made
--- NOTE | 2016-11-13 14:44 | EKG ---
Date Performed: 11/13/2016 Time Performed: 08:49:02 PTAGE: 61 years EKG: Sinus rhythm ST DEVIATION AND MODERATE T-WAVE ABNORMALITY, CONSIDER LATERAL ISCHEMIA ST DEVIATION AND MODERATE T- WAVE ABNORMALITY, CONSIDER INFERIOR ISCHEMIA ABNORMAL ECG PREVIOUS TRACING : 11/12/2016 13.43 Since previous tracing, no significant change noted DOCTOR: Monico Rios Interpretating Date/Time 11/13/2016 14:44:22
--- NOTE | 2016-11-13 15:07 | PD.CARD.PN ---
Subjective Subjective Remarks Post cath doing well No complaints Objective Medications Current Medications Medications (Trade) Dose Ordered Sig/Yosi Route Start Time Stop Time Status Last Admin (NS Flush) 2 ml UNSCH PRN IV FLUSH 11/13/16 02:00 (NS Flush) 2 ml BID IV FLUSH 11/13/16 09:00 11/13/16 08:47 (Zofran Inj) 4 mg Q6H PRN IVP 11/13/16 02:00 (Narcan Inj) 0.4 mg UNSCH PRN IV 11/13/16 02:00 (Senokot) 17.2 mg Q12H PRN PO 11/13/16 02:00 (Dulcolax Supp) 10 mg DAILY PRN RECTAL 11/13/16 02:00 (Lactulose Liq) 30 ml DAILY PRN PO 11/13/16 02:00 (Roxicodone) 20 mg Q4H PRN PO 11/13/16 02:15 11/13/16 11:09 (Ferrous Sulfate) 325 mg TID PO 11/13/16 09:00 11/13/16 08:47 (Apresoline) 100 mg TID PO 11/13/16 09:00 11/13/16 08:46 (Lipitor) 40 mg HS PO 11/13/16 21:00 (Lasix) 20 mg BID@ PO 11/13/16 09:00 11/13/16 08:47 (Synalar 0.01% Cream) 1 applic HS TOPICAL 11/13/16 21:00 (Margarita-Colace) 1 tab BID PO 11/13/16 09:00 11/13/16 08:46 (Santyl Oint) 1 applic DAILY TOPICAL 11/13/16 09:00 11/13/16 08:47 (Miralax) 17 gm DAILY PO 11/13/16 09:00 (Theragran) 1 tab DAILY PO 11/13/16 09:00 11/13/16 08:46 (Toprol Xl) 50 mg DAILY PO 11/13/16 09:00 11/13/16 08:47 (Vitamin B12) 1,000 mcg DAILY PO 11/13/16 09:00 11/13/16 08:47 (Rocaltrol) 0.5 mcg DAILY PO 11/13/16 09:00 11/13/16 08:47 (Aspirin Chew) 81 mg DAILY CHEW 11/13/16 09:00 11/13/16 08:47 (Vitamin C) 1,000 mg DAILY PO 11/13/16 09:00 11/13/16 08:47 (Lioresal) 10 mg BID PO 11/13/16 09:00 11/13/16 08:47 Miscellaneous Information 1 ONCE ONCE XX 11/13/16 13:45 11/13/16 13:46 UNV Atropine Sulfate 0.5 mg 0.5 mg UNSCH PRN IV 11/13/16 13:45 UNV (NS 250 ml Inj) 250 ml @ 500 mls/hr ONCE PRN IV 11/13/16 13:45 11/14/16 13:44 UNV Vital Signs / I&O Vital Signs Date Time Temp Pulse Resp B/P Pulse Ox O2 Delivery O2 Flow Rate FiO2 11/13/16 12:09 98.3 62 18 115/62 94 11/13/16 08:35 98.6 76 18 128/68 94 11/13/16 04:00 99.1 72 18 118/68 98 11/13/16 00:00 98.3 73 18 159/74 94 I/O 11/12/16 11/12/16 11/12/16 11/13/16 11/13/16 11/13/16 07:00 15:00 23:00 07:00 15:00 23:00 Output Total 2600 ml Balance -2600 ml Output Urine Total 2600 ml Physical Exam GENERAL: NAD, AAOx3 SKIN: Warm and dry. HEAD: Atraumatic. Normocephalic. EYES: Pupils equal and round. No scleral icterus. No injection or drainage. ENT: No nasal bleeding or discharge. Mucous membranes pink and moist. NECK: Trachea midline. No JVD. CARDIOVASCULAR: Regular rate and rhythm. RESPIRATORY: No accessory muscle use. Clear to auscultation. Breath sounds equal bilaterally. GASTROINTESTINAL: Abdomen soft, non-tender, nondistended. Hepatic and splenic margins not palpable. MUSCULOSKELETAL: Changes due to venous status bilaterally NEUROLOGICAL: Awake and alert. Paraplegic PSYCHIATRIC: Appropriate mood and affect; insight and judgment normal. Laboratory Laboratory Tests Test 11/13/16 03:58 White Blood Count 8.4 TH/MM3 Red Blood Count 3.09 MIL/MM3 Hemoglobin 8.3 GM/DL Hematocrit 25.9 % Mean Corpuscular Volume 84.0 FL Mean Corpuscular Hemoglobin 27.0 PG Mean Corpuscular Hemoglobin 32.2 % Concent Red Cell Distribution Width 21.7 % Platelet Count 258 TH/MM3 Mean Platelet Volume 7.2 FL Neutrophils (%) (Auto) 65.8 % Lymphocytes (%) (Auto) 21.3 % Monocytes (%) (Auto) 8.2 % Eosinophils (%) (Auto) 3.9 % Basophils (%) (Auto) 0.8 % Neutrophils # (Auto) 5.5 TH/MM3 Lymphocytes # (Auto) 1.8 TH/MM3 Monocytes # (Auto) 0.7 TH/MM3 Eosinophils # (Auto) 0.3 TH/MM3 Basophils # (Auto) 0.1 TH/MM3 CBC Comment DIFF FINAL Differential Comment Prothrombin Time 11.9 SEC Prothromb Time International 1.1 RATIO Ratio Activated Partial 26.9 SEC Thromboplast Time Sodium Level 142 MEQ/L Potassium Level 4.5 MEQ/L Chloride Level 109 MEQ/L Carbon Dioxide Level 24.2 MEQ/L Anion Gap 9 MEQ/L Blood Urea Nitrogen 51 MG/DL Creatinine 2.84 MG/DL Estimat Glomerular Filtration 23 ML/MIN Rate Random Glucose 115 MG/DL Calcium Level 8.2 MG/DL Assessment and Plan Problem List: (1) Chest pain (2) CAD (coronary artery disease) (3) ST segment changes on electrocardiogram (4) Hypertension (5) Anemia (6) Morbid obesity with BMI of 45.0-49.9, adult (7) Anemia in chronic kidney disease (8) Paraplegia Assessment and Plan 1) Hx CABG x2 both patent Overall mid LCX lesion and small PDA distally Inferolateral infarction on stress test, EKG changes inferolaterally with ischemia 2) CKD Gentle hydration 3) Because of recurrent pain with EKG changes inferolaterally with previous elevate trop, believe LCx should be intervened upon as it supplies collaterals to the RCA Overall LCx covers a large area with 2 OMs.... [place] OM1 is occluded proximally and bypassed distally Overall PDA is too small, would plan on medical management of the PDA Will tentatively plan for Wednesday depending on kidney function Ricki Chung DO Nov 13, 2016 15:07
[2016-11-13] MEDS ORDERED: IOHEXOL 350 MG/ML 50 ML BTL (for Cath Lab) OTHER ONE (16:16)
[2016-11-13] MEDS: SODIUM CHLOR 0.9% 1000 ML INJ 1,000 ML IV SCH (17:18)
[2016-11-13 18:34] LABS: APTT (PATIENT) 27.9 SEC (24.3-30.1)
[2016-11-13] MEDS: FLUOCINOLONE ACETONIDE 0.01% CR 15 GM TUBE TOPICAL SCH (21:00)
[2016-11-13] MEDS: ATORVASTATIN 40 MG TAB PO SCH (21:22)
[2016-11-14] VITALS (8 sets, daily range): BP systolic 118–145; BP diastolic 57–75; PULSE 61–92; RESP 18–22; TEMP 98–98.5; O2SAT 94–98
[2016-11-14] MEDS: SODIUM CHLOR 0.9% 1000 ML INJ 1,000 ML IV SCH ×2 (04:51→17:40)
--- NOTE | 2016-11-14 06:37 | MA ---
cc: RICKI REMY DO DATE: November 13, 2016 PROCEDURE Left heart catheterization, coronary angiogram, coronary bypass angiogram, moderate sedation 30 minutes. PREPROCEDURE DIAGNOSIS Chest pain with EKG changes, recent N-STEMI. POSTPROCEDURE DIAGNOSIS Coronary artery disease, history of coronary artery bypass grafting (2/2 grafts patent). MEDICATIONS 1. Solu-Medrol 125 mg. 2. Benadryl 25 mg. 3. Pepcid 20 mg 4. Versed 0.5 mg. 5. Fentanyl 25 mcg. CONTRAST 40 cc. FLUOROSCOPY: 5.7 minutes SEDATION: Moderate sedation 30 minutes PROCEDURAL SUMMARY Primitivo Landaverde is a pleasant 61-year-old male who originally saw in early October for an elevated troponin. At that time due to his tenuous creatinine and not wanting the chance of having to go on dialysis. He elected to undergo stress test. On the stress test he was found to have inferior and lateral infarct and so he was recommended medical management. Since that time he went to rehab and while in rehab and he was working out the other day and noticed chest pain and shortness of breath. A EKG was done showed inferior and lateral T-wave inversions. At this time I recommended cardiac catheterization as his EKG showed ischemia as well as having ischemic symptoms. Risks, benefits and alternatives were explained to him and he consented as such. Right femoral artery was accessed using a modified Seldinger technique above this time graft and insertion of a 5-Lao sheath. This was easily aspirated and flushed. The JR-4 was advanced over a J-wire into the ascending aorta and across the aortic valve for measurement of left ventricular pressure. This was pulled back across the aortic valve showing no significant gradient of aortic stenosis. JR-4 was used for selective angiography of the right coronary system. JR-4 was then used for selective angiography of the vein graft to first obtuse marginal. And then was advanced into the subclavian for selective angiography of the GARDUNO to LAD. JR-4 was then exchanged for a JL-4 which was used for selective angiography of the left coronary artery. The JL-4 was then removed over a J-wire. The patient's sheath was sutured into place with plan to remove once he was in the DOC unit and pressure held for hemostasis. The patient left the specialist employee labor relations cardiovascularly stable. FINDINGS Left main normal size vessel with adequate reflux. Does not appear to have significant disease. It trifurcates into an LAD ramus and left circumflex. LAD proximal stent noted. It appears to have an ostial 100% occlusion. Ramus extremely small vessel with 10% disease throughout. Left circumflex normal size vessel with and 80 to 90% lesion in the midportion. First obtuse marginal appears to be occluded. It gives off two other major obtuse marginals with diffuse 20% disease throughout. RCA normal-size vessel with diffuse disease throughout the midportion of 50%. Distally it gives off a PDA with a 70 to 80% lesion and distal over the vessel appears to be 1.0 mm in size and covers a small area of myocardium. There are [id number] collaterals from the circumflex system. GARDUNO to LAD widely patent with a moderate amount of tortuosity. It touches down to the LAD which does have diffuse disease distally of 50% tapering to a small vessel and retrogradely fills the LAD and septal perforators. SVG to first obtuse marginal widely patent and supplies the first obtuse marginal which has an upper and lower branch with no significant disease. It retrogradely fills to the proximal portion of the obtuse marginal where it is occluded. IMPRESSION 1. Recent N-STEMI 2. Chest pain and shortness of breath concerning for coronary insufficiency. 3. EKG changes consistent with inferior lateral ischemia. 4. Coronary artery disease as above with a history of coronary artery bypass grafting (2/2 grafts patent) RECOMMENDATIONS 1. Mr. Langford underwent diagnostic cardiac catheterization due to his chest pain and EKG changes which showed inferolateral ischemia. Overall his two grafts were still patent but he does have a distal PDA which is overall small vessel with a 90% lesion which is most likely not amendable to intervention. He does have a mid circumflex lesion which supplies two distal obtuse marginals which covers a large amount of myocardium and also supplies collaterals to the right coronary system. 2. A believe the culprit vessel is the left circumflex and seems amendable to intervention. 3. Because of his chronic kidney disease today's procedure was just diagnostic in nature, we will plan on intervening on the left circumflex on Wednesday. 4. Even though his stress test shows inferior lateral scar it was felt that because he had significant chest pain and shortness of breath as well as EKG changes showing ischemia in the inferior lateral portion. It is felt that he would benefit from intervention of his circumflex as it supplies both the inferior and lateral portions. Thank you for allowing me to see Primitivo Landaverde, if there are any questions please do not hesitate to call. Ricki Remy DO VGP/ /11:19 PM /6:07 AM
[2016-11-14] MEDS: FERROUS SULFATE 325 MG (65 MG ELEMENTAL IRON) TAB PO SCH ×3 (08:04→17:57)
[2016-11-14] MEDS: amLODIPine BESYLATE 5 MG TAB PO SCH (08:04)
[2016-11-14] MEDS: hydrALAZINE HCL 100 MG TAB PO SCH ×3 (08:04→17:57)
[2016-11-14] MEDS: METOPROLOL SUCCINATE 50 MG EXTENDED RELEASE TAB PO SCH (08:04)
[2016-11-14] MEDS: DOCUSATE SODIUM 50 MG/SENNA 8.6 MG TAB PO SCH ×2 (08:04→21:00)
[2016-11-14] MEDS: MULTIVITAMIN TAB PO SCH (08:04)
[2016-11-14] MEDS: CYANOCOBALAMIN 1,000 MCG TAB PO SCH (08:04)
[2016-11-14] MEDS: BACLOFEN 10 MG TAB PO SCH ×2 (08:04→20:59)
[2016-11-14] MEDS: CALCITRIOL 0.25 MCG CAP PO SCH (08:04)
[2016-11-14] MEDS: FUROSEMIDE 20 MG TAB PO SCH ×2 (08:04→17:57)
[2016-11-14] MEDS: ASCORBIC ACID 500 MG TAB PO SCH (08:05)
[2016-11-14] MEDS: SODIUM CHLORIDE 0.9% FLUSH 10 ML FLUSH IV FLUSH SCH ×2 (08:05→21:01)
[2016-11-14] MEDS: ASPIRIN 81 MG CHEW TAB CHEW SCH (08:05)
[2016-11-14] MEDS: POLYETHYLENE GLYCOL 17 GM PKG PO SCH (08:05)
[2016-11-14] MEDS: COLLAGENASE OINT 30 GM TUBE TOPICAL SCH ×2 (08:06→08:13)
[2016-11-14 08:53] LABS: AUTOMATED NEUTROPHIL # 9.9 TH/MM3 (1.8-7.7); BASOPHIL % 0.3 % (0.0-2.0); HEMATOCRIT 23.2 % (39.0-51.0); HEMO FLAGS DIFF FINAL; LYMPH % 9.3 % (9.0-44.0); LYMPHOCYTE # 1.1 TH/MM3 (1.0-4.8); MEAN CELL VOLUME 83.6 FL (80.0-100.0); MEAN CORPUSCULAR HEMOGLOBIN 26.9 PG (27.0-34.0); MEAN CORPUSCULAR HGB CONC 32.1 % (32.0-36.0); MONO % 4.2 % (0.0-8.0); NEUT % 86.2 % (16.0-70.0); PLATELET COUNT 231 TH/MM3 (150-450); RED BLOOD COUNT 2.77 MIL/MM3 (4.50-5.90); RED CELL DISTRIBUTION WIDTH 21.5 % (11.6-17.2); WHITE BLOOD COUNT 11.5 TH/MM3 (4.0-11.0)
[2016-11-14 09:14] LABS: BICARBONATE 21.1 MEQ/L (21.0-32.0)
--- NOTE | 2016-11-14 13:37 | PD.CARD.PN ---
Subjective Subjective Remarks Doing well No complaints Objective Medications Current Medications Medications (Trade) Dose Ordered Sig/Yosi Route Start Time Stop Time Status Last Admin (NS Flush) 2 ml UNSCH PRN IV FLUSH 11/13/16 02:00 (NS Flush) 2 ml BID IV FLUSH 11/13/16 09:00 11/13/16 08:47 (Zofran Inj) 4 mg Q6H PRN IVP 11/13/16 02:00 (Narcan Inj) 0.4 mg UNSCH PRN IV 11/13/16 02:00 (Senokot) 17.2 mg Q12H PRN PO 11/13/16 02:00 (Dulcolax Supp) 10 mg DAILY PRN RECTAL 11/13/16 02:00 (Lactulose Liq) 30 ml DAILY PRN PO 11/13/16 02:00 (Roxicodone) 20 mg Q4H PRN PO 11/13/16 02:15 11/14/16 13:16 (Ferrous Sulfate) 325 mg TID PO 11/13/16 09:00 11/14/16 13:10 (Apresoline) 100 mg TID PO 11/13/16 09:00 11/14/16 13:10 (Lipitor) 40 mg HS PO 11/13/16 21:00 11/13/16 21:22 (Lasix) 20 mg BID@18 PO 11/13/16 09:00 11/14/16 08:04 (Synalar 0.01% Cream) 1 applic HS TOPICAL 11/13/16 21:00 (Margarita-Colace) 1 tab BID PO 11/13/16 09:00 11/14/16 08:04 (Santyl Oint) 1 applic DAILY TOPICAL 11/13/16 09:00 11/13/16 08:47 (Miralax) 17 gm DAILY PO 11/13/16 09:00 (Theragran) 1 tab DAILY PO 11/13/16 09:00 11/14/16 08:04 (Toprol Xl) 50 mg DAILY PO 11/13/16 09:00 11/14/16 08:04 (Vitamin B12) 1,000 mcg DAILY PO 11/13/16 09:00 11/14/16 08:04 (Rocaltrol) 0.5 mcg DAILY PO 11/13/16 09:00 11/14/16 08:04 (Aspirin Chew) 81 mg DAILY CHEW 11/13/16 09:00 11/13/16 08:47 (Vitamin C) 1,000 mg DAILY PO 11/13/16 09:00 11/14/16 08:05 (Lioresal) 10 mg BID PO 11/13/16 09:00 11/14/16 08:04 Atropine Sulfate 0.5 mg 0.5 mg UNSCH PRN IV 11/13/16 13:45 Sodium Chloride 250 ml @ 500 mls/hr ONCE PRN IV 11/13/16 13:45 11/14/16 13:44 (NS 1000 ml Inj) 1,000 ml @ 75 mls/hr [id number] IV 11/13/16 15:00 11/14/16 04:51 (Norvasc) 5 mg DAILY PO 11/13/16 16:00 11/14/16 08:04 Vital Signs / I&O Vital Signs Date Time Temp Pulse Resp B/P Pulse Ox O2 Delivery O2 Flow Rate FiO2 11/14/16 12:18 98.5 66 20 136/63 96 11/14/16 08:00 71 11/14/16 07:00 98.0 70 20 135/63 97 11/14/16 04:00 98.0 68 18 145/68 97 11/14/16 00:00 98.5 92 20 132/75 94 11/13/16 22:38 58 11/13/16 20:00 98.2 72 18 113/73 97 11/13/16 17:26 98.2 61 18 158/77 95 I/O 11/13/16 11/13/16 11/13/16 11/14/16 11/14/16 11/14/16 07:00 15:00 23:00 07:00 15:00 23:00 Intake Total 1200 ml 840 ml Output Total 2600 ml 1300 ml 2700 ml Balance -2600 ml -1300 ml -1500 ml 840 ml Intake Oral 1200 ml IV Total 840 ml Output Urine Total 2600 ml 1300 ml 2700 ml Physical Exam GENERAL: NAD, AAOx3 SKIN: Warm and dry. HEAD: Atraumatic. Normocephalic. EYES: Pupils equal and round. No scleral icterus. No injection or drainage. ENT: No nasal bleeding or discharge. Mucous membranes pink and moist. NECK: Trachea midline. No JVD. CARDIOVASCULAR: Regular rate and rhythm. RESPIRATORY: No accessory muscle use. Clear to auscultation. Breath sounds equal bilaterally. GASTROINTESTINAL: Abdomen soft, non-tender, nondistended. Hepatic and splenic margins not palpable. MUSCULOSKELETAL: Changes due to venous status bilaterally. Right femoral no hematoma/bruit NEUROLOGICAL: Awake and alert. Paraplegic PSYCHIATRIC: Appropriate mood and affect; insight and judgment normal. Laboratory Laboratory Tests Test 11/13/16 11/14/16 18:09 08:37 Activated Partial 27.9 SEC Thromboplast Time White Blood Count 11.5 TH/MM3 Red Blood Count 2.77 MIL/MM3 Hemoglobin 7.4 GM/DL Hematocrit 23.2 % Mean Corpuscular Volume 83.6 FL Mean Corpuscular Hemoglobin 26.9 PG Mean Corpuscular Hemoglobin 32.1 % Concent Red Cell Distribution Width 21.5 % Platelet Count 231 TH/MM3 Mean Platelet Volume 7.4 FL Neutrophils (%) (Auto) 86.2 % Lymphocytes (%) (Auto) 9.3 % Monocytes (%) (Auto) 4.2 % Eosinophils (%) (Auto) 0.0 % Basophils (%) (Auto) 0.3 % Neutrophils # (Auto) 9.9 TH/MM3 Lymphocytes # (Auto) 1.1 TH/MM3 Monocytes # (Auto) 0.5 TH/MM3 Eosinophils # (Auto) 0.0 TH/MM3 Basophils # (Auto) 0.0 TH/MM3 CBC Comment DIFF FINAL Differential Comment Sodium Level 137 MEQ/L Potassium Level 5.0 MEQ/L Chloride Level 107 MEQ/L Carbon Dioxide Level 21.1 MEQ/L Anion Gap 9 MEQ/L Blood Urea Nitrogen 52 MG/DL Creatinine 2.72 MG/DL Estimat Glomerular Filtration 24 ML/MIN Rate Random Glucose 155 MG/DL Calcium Level 7.7 MG/DL Assessment and Plan Problem List: (1) Chest pain (2) CAD (coronary artery disease) (3) ST segment changes on electrocardiogram (4) Hypertension (5) Anemia (6) Morbid obesity with BMI of 45.0-49.9, adult (7) Anemia in chronic kidney disease (8) Paraplegia Assessment and Plan 1) Hx CABG x2 both patent Overall mid LCX lesion and small PDA distally Inferolateral infarction on stress test, EKG changes inferolaterally with ischemia 2) CKD Gentle hydration 3) Because of recurrent pain with EKG changes inferolaterally with previous elevate trop, believe LCx should be intervened upon as it supplies collaterals to the RCA Overall LCx covers a large area with 2 OMs.... inup[place] OM1 is occluded proximally and bypassed distally Overall PDA is too small, would plan on medical management of the PDA Will tentatively plan for Wednesday depending on kidney function 4) Drop in Hgb, most likely procedural/dilution 5) Start on Plavix tomorrow for planned PCI Wednesday Ricki Chung DO Nov 14, 2016 13:37
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
[2016-11-14] MEDS ORDERED: ENOXAPARIN SODIUM 40 MG/0.4 ML SYRINGE SQ ONE (18:15)
[2016-11-14] MEDS: ATORVASTATIN 40 MG TAB PO SCH (20:59)
[2016-11-14] MEDS: FLUOCINOLONE ACETONIDE 0.01% CR 15 GM TUBE TOPICAL SCH (22:56)
[2016-11-15] VITALS (7 sets, daily range): BP systolic 124–151; BP diastolic 58–72; PULSE 52–61; RESP 17–20; TEMP 97.3–98.3; O2SAT 96–100
[2016-11-15] MEDS: SODIUM CHLOR 0.9% 1000 ML INJ 1,000 ML IV SCH ×2 (07:00→23:28)
[2016-11-15] MEDS: DOCUSATE SODIUM 50 MG/SENNA 8.6 MG TAB PO SCH ×2 (09:00→21:14)
[2016-11-15] MEDS: hydrALAZINE HCL 100 MG TAB PO SCH ×3 (09:00→17:24)
[2016-11-15] MEDS: CALCITRIOL 0.25 MCG CAP PO SCH (09:00)
[2016-11-15] MEDS: amLODIPine BESYLATE 5 MG TAB PO SCH (09:00)
[2016-11-15] MEDS: CYANOCOBALAMIN 1,000 MCG TAB PO SCH (09:00)
[2016-11-15] MEDS: COLLAGENASE OINT 30 GM TUBE TOPICAL SCH (09:00)
[2016-11-15] MEDS: ASPIRIN 81 MG CHEW TAB CHEW SCH (09:00)
[2016-11-15] MEDS: BACLOFEN 10 MG TAB PO SCH ×2 (09:00→21:13)
[2016-11-15] MEDS: METOPROLOL SUCCINATE 50 MG EXTENDED RELEASE TAB PO SCH (09:00)
[2016-11-15] MEDS: MULTIVITAMIN TAB PO SCH (09:00)
[2016-11-15] MEDS: ASCORBIC ACID 500 MG TAB PO SCH (09:00)
[2016-11-15] MEDS: SODIUM CHLORIDE 0.9% FLUSH 10 ML FLUSH IV FLUSH SCH ×2 (09:00→21:00)
[2016-11-15] MEDS: FUROSEMIDE 20 MG TAB PO SCH ×2 (09:00→17:24)
[2016-11-15] MEDS: FERROUS SULFATE 325 MG (65 MG ELEMENTAL IRON) TAB PO SCH ×3 (09:00→17:24)
[2016-11-15] MEDS: POLYETHYLENE GLYCOL 17 GM PKG PO SCH (09:00)
[2016-11-15 12:27] LABS: MEAN CELL VOLUME 86.1 FL (80.0-100.0); MEAN CORPUSCULAR HEMOGLOBIN 26.5 PG (27.0-34.0); MEAN CORPUSCULAR HGB CONC 30.8 % (32.0-36.0); PLATELET COUNT 241 TH/MM3 (150-450); RED BLOOD COUNT 3.14 MIL/MM3 (4.50-5.90); RED CELL DISTRIBUTION WIDTH 21.9 % (11.6-17.2)
[2016-11-15 13:32] LABS: BANDS 3 % (0-6); EOSINOPHILS 3 % (0-4); NEUTROPHIL # MANUAL DIFF 7.8 TH/MM3 (1.8-7.7); OVALOCYTES 1+ (NORMAL); PLATELET ESTIMATE SMEAR NORMAL (NORMAL); PLATELET MORPHOLOGY NORMAL (NORMAL); POLYS (SEG NEUTROPHILS) 68 % (16-70); SCAN/DIFF FINAL DIFF MANUAL; WBC DIFF SAMPLE 100
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
--- NOTE | 2016-11-15 20:14 | PD.CARD.PN ---
Subjective Subjective Remarks Patient seen this morning No complaints Objective Medications Current Medications Medications (Trade) Dose Ordered Sig/Yosi Route Start Time Stop Time Status Last Admin (NS Flush) 2 ml UNSCH PRN IV FLUSH 11/13/16 02:00 (NS Flush) 2 ml BID IV FLUSH 11/13/16 09:00 11/14/16 21:01 (Zofran Inj) 4 mg Q6H PRN IVP 11/13/16 02:00 (Narcan Inj) 0.4 mg UNSCH PRN IV 11/13/16 02:00 (Senokot) 17.2 mg Q12H PRN PO 11/13/16 02:00 (Dulcolax Supp) 10 mg DAILY PRN RECTAL 11/13/16 02:00 (Lactulose Liq) 30 ml DAILY PRN PO 11/13/16 02:00 (Roxicodone) 20 mg Q4H PRN PO 11/13/16 02:15 11/15/16 17:25 (Ferrous Sulfate) 325 mg TID PO 11/13/16 09:00 11/15/16 17:24 (Apresoline) 100 mg TID PO 11/13/16 09:00 11/15/16 17:24 (Lipitor) 40 mg HS PO 11/13/16 21:00 11/14/16 20:59 (Lasix) 20 mg BID@,18 PO 11/13/16 09:00 11/15/16 17:24 (Synalar 0.01% Cream) 1 applic HS TOPICAL 11/13/16 21:00 11/14/16 22:56 (Margarita-Colace) 1 tab BID PO 11/13/16 09:00 11/15/16 09:00 (Santyl Oint) 1 applic DAILY TOPICAL 11/13/16 09:00 11/13/16 08:47 (Miralax) 17 gm DAILY PO 11/13/16 09:00 (Theragran) 1 tab DAILY PO 11/13/16 09:00 11/15/16 09:00 (Toprol Xl) 50 mg DAILY PO 11/13/16 09:00 11/15/16 09:00 (Vitamin B12) 1,000 mcg DAILY PO 11/13/16 09:00 11/15/16 09:00 (Rocaltrol) 0.5 mcg DAILY PO 11/13/16 09:00 11/15/16 09:00 (Aspirin Chew) 81 mg DAILY CHEW 11/13/16 09:00 11/15/16 09:00 (Vitamin C) 1,000 mg DAILY PO 11/13/16 09:00 11/15/16 09:00 (Lioresal) 10 mg BID PO 11/13/16 09:00 11/15/16 09:00 (Atropine Inj) 0.5 mg UNSCH PRN IV 11/13/16 13:45 Sodium Chloride 1,000 ml @ 75 mls/hr [id number] IV 11/13/16 15:00 11/15/16 07:00 (Norvasc) 5 mg DAILY PO 11/13/16 16:00 11/15/16 09:00 Vital Signs / I&O Vital Signs Date Time Temp Pulse Resp B/P (MAP) Pulse Ox O2 Delivery O2 Flow Rate FiO2 11/15/16 16:17 97.4 58 20 136/64 (88) 100 11/15/16 11:30 97.4 52 20 151/70 (97) 100 11/15/16 07:56 97.7 57 20 124/58 (80) 100 11/15/16 04:30 97.3 58 17 137/66 (89) 97 11/15/16 00:30 97.9 57 17 139/72 (94) 100 I/O 11/14/16 11/14/16 11/14/16 11/15/16 11/15/16 11/15/16 06:59 14:59 22:59 06:59 14:59 22:59 Intake Total 1200 ml 1400 ml 680 ml 360 ml 600 ml 1300 ml Output Total 2700 ml 4900 ml 2250 ml 650 ml 1300 ml Balance -1500 ml 1400 ml -4220 ml -1890 ml -50 ml 0 ml Intake Oral 1200 ml 680 ml 360 ml 1300 ml IV Total 1400 ml Packed Cells 600 ml Output Urine Total 2700 ml 4900 ml 2250 ml 1300 ml Stool Total 650 ml Physical Exam GENERAL: NAD, AAOx3 SKIN: Warm and dry. HEAD: Atraumatic. Normocephalic. EYES: Pupils equal and round. No scleral icterus. No injection or drainage. ENT: No nasal bleeding or discharge. Mucous membranes pink and moist. NECK: Trachea midline. No JVD. CARDIOVASCULAR: Regular rate and rhythm. RESPIRATORY: No accessory muscle use. Clear to auscultation. Breath sounds equal bilaterally. GASTROINTESTINAL: Abdomen soft, non-tender, nondistended. Hepatic and splenic margins not palpable. MUSCULOSKELETAL: Changes due to venous status bilaterally. Right femoral no hematoma/bruit NEUROLOGICAL: Awake and alert. Paraplegic PSYCHIATRIC: Appropriate mood and affect; insight and judgment normal. Laboratory Laboratory Tests Test 11/15/16 12:19 White Blood Count 11.0 TH/MM3 Red Blood Count 3.14 MIL/MM3 Hemoglobin 8.3 GM/DL Hematocrit 27.0 % Mean Corpuscular Volume 86.1 FL Mean Corpuscular Hemoglobin 26.5 PG Mean Corpuscular Hemoglobin Concent 30.8 % Red Cell Distribution Width 21.9 % Platelet Count 241 TH/MM3 Mean Platelet Volume 7.6 FL Differential Total Cells Counted 100 Neutrophils % (Manual) 68 % Band Neutrophils % 3 % Lymphocytes % 21 % Monocytes % 5 % Eosinophils % 3 % Neutrophils # (Manual) 7.8 TH/MM3 Differential Comment FINAL DIFF MANUAL Platelet Estimate NORMAL Platelet Morphology Comment NORMAL Ovalocytes 1+ Assessment and Plan Problem List: (1) Chest pain ICD Codes: R07.9 - Chest pain, unspecified Status: Acute (2) CAD (coronary artery disease) ICD Codes: I25.10 - Atherosclerotic heart disease of [place] coronary artery without angina pectoris Status: Chronic (3) ST segment changes on electrocardiogram ICD Codes: R94.31 - Abnormal electrocardiogram [ECG] [EKG] Status: Acute (4) Hypertension ICD Codes: I10 - Essential (primary) hypertension Status: Chronic (5) Anemia ICD Codes: D64.9 - Anemia, unspecified Status: Chronic (6) Morbid obesity with BMI of 45.0-49.9, adult ICD Codes: E66.01 - Morbid (severe) obesity due to excess calories; Z68.42 - Body mass index (BMI) 45.0-49.9, adult Status: Chronic (7) Anemia in chronic kidney disease ICD Codes: N18.9 - Chronic kidney disease, unspecified; D63.1 - Anemia in chronic kidney disease Status: Acute (8) Paraplegia ICD Codes: G82.20 - Paraplegia Status: Chronic Assessment and Plan 1) Hx CABG x2 both patent Overall mid LCX lesion and small PDA distally Inferolateral infarction on stress test, EKG changes inferolaterally with ischemia 2) CKD Gentle hydration 3) Because of recurrent pain with EKG changes inferolaterally with previous elevate trop, believe LCx should be intervened upon as it supplies collaterals to the RCA Overall LCx covers a large area with 2 OMs.... [place] OM1 is occluded proximally and bypassed distally Overall PDA is too small, would plan on medical management of the PDA Will tentatively plan for tomorrow for PCI Loaded with Plavix 4) Drop in Hgb, most likely procedural/dilution Ricki Chung DO Nov 15, 2016 20:14
[2016-11-15] MEDS ORDERED: CLOPIDOGREL 300 MG TAB PO ONE (20:15)
[2016-11-15] MEDS: ATORVASTATIN 40 MG TAB PO SCH (21:14)
[2016-11-15] MEDS: FLUOCINOLONE ACETONIDE 0.01% CR 15 GM TUBE TOPICAL SCH (21:16)
[2016-11-16] VITALS (11 sets, daily range): BP systolic 127–155; BP diastolic 66–91; PULSE 55–81; RESP 17–22; TEMP 97.9–98.8; O2SAT 97–100
[2016-11-16] MEDS: ASPIRIN 81 MG CHEW TAB CHEW SCH (07:31)
[2016-11-16] MEDS: FERROUS SULFATE 325 MG (65 MG ELEMENTAL IRON) TAB PO SCH ×2 (07:31→18:30)
[2016-11-16] MEDS: SODIUM CHLORIDE 0.9% FLUSH 10 ML FLUSH IV FLUSH SCH ×2 (07:31→20:20)
[2016-11-16] MEDS: FUROSEMIDE 20 MG TAB PO SCH ×2 (07:32→18:29)
[2016-11-16] MEDS: hydrALAZINE HCL 100 MG TAB PO SCH ×2 (07:32→18:31)
[2016-11-16] MEDS: BACLOFEN 10 MG TAB PO SCH ×2 (07:32→20:17)
[2016-11-16] MEDS: CLOPIDOGREL 75 MG TAB PO SCH (07:32)
[2016-11-16] MEDS: DOCUSATE SODIUM 50 MG/SENNA 8.6 MG TAB PO SCH ×2 (07:32→20:17)
[2016-11-16] MEDS: CYANOCOBALAMIN 1,000 MCG TAB PO SCH (07:33)
[2016-11-16] MEDS: ASCORBIC ACID 500 MG TAB PO SCH (07:33)
[2016-11-16] MEDS: POLYETHYLENE GLYCOL 17 GM PKG PO SCH (07:33)
[2016-11-16] MEDS: METOPROLOL SUCCINATE 50 MG EXTENDED RELEASE TAB PO SCH (07:33)
[2016-11-16] MEDS: MULTIVITAMIN TAB PO SCH (07:33)
[2016-11-16] MEDS: amLODIPine BESYLATE 5 MG TAB PO SCH (07:33)
[2016-11-16] MEDS: COLLAGENASE OINT 30 GM TUBE TOPICAL SCH (07:34)
[2016-11-16 08:49] LABS: HEMATOCRIT 28.9 % (39.0-51.0); MEAN CELL VOLUME 86.1 FL (80.0-100.0); MEAN CORPUSCULAR HGB CONC 30.2 % (32.0-36.0); PLATELET COUNT 193 TH/MM3 (150-450); RED BLOOD COUNT 3.35 MIL/MM3 (4.50-5.90); REVIEW FLAG FINAL; WHITE BLOOD COUNT 11.6 TH/MM3 (4.0-11.0)
[2016-11-16] MEDS: SODIUM CHLOR 0.9% 1000 ML INJ 1,000 ML IV SCH ×2 (09:40→23:00)
[2016-11-16] MEDS: CALCITRIOL 0.25 MCG CAP PO SCH (09:54)
[2016-11-16] MEDS ORDERED: diphenhydrAMINE HCL 50 MG/ML VIAL IM ONE (10:00)
[2016-11-16] MEDS ORDERED: methylPREDNISolone SOD SUCC 125 MG/2 ML VIAL IV PUSH ONE (10:00)
[2016-11-16] MEDS ORDERED: FAMOTIDINE 20 MG/2 ML VIAL IV PUSH ONE (10:00)
[2016-11-16] MEDS ORDERED: IOHEXOL 350 MG/ML 100 ML BTL (for Cath Lab) OTHER ONE (11:20)
--- NOTE | 2016-11-16 11:26 | PD.WCN.NOT ---
Wound Consult Description: Consult placed for Wound Management of left heel wound per Dr Paz Communicated with: MIKEY Hay Additional Information: Attempted to see patient on [facility] [address] for left foot wound. Patient was being transported to [facility] on his [facility] specialty surface and could not be assessed at this time. Will follow up post procedure. Spoke with MIKEY Hay who states that patient has a wound on his left heel with a clean dry dressing in place. Yeni Giordano [facility] Nov 16, 2016 11:26
[2016-11-16] MEDS ORDERED: MIDAZOLAM HCL 2 MG/2 ML VIAL ONE (11:44)
[2016-11-16] MEDS ORDERED: VERAPAMIL HCL 5 MG/2 ML VIAL ONE ×2 (11:46→13:05)
[2016-11-16] MEDS ORDERED: NITROGLYCERIN INJ 0 ML ONE (11:46)
[2016-11-16] MEDS ORDERED: HEPARIN SODIUM - IV 10,000 UNITS/10 ML VIAL ONE ×2 (11:46→13:05)
[2016-11-16] MEDS ORDERED: HEPARIN-NS/PF INJ 1,000 ML ONE (11:46)
[2016-11-16] MEDS ORDERED: NITROGLYCERIN INJ 5 ML ONE (13:05)
[2016-11-16] MEDS ORDERED: SODIUM CHLOR 0.9% 1000 ML INJ 1,000 ML IV SCH (14:07)
--- NOTE | 2016-11-16 14:09 | CATHPROC ---
Critical Diagnostics HIS Report Study Information Study Number Admission Scheduled Start Study Start [id number] Nov 12 2016 11:55PM 11/15/2016 Nov 16 2016 11:33AM [place] Service Cardiac Catheterization Admit Source Facility Department Other [facility] - Washing Tub Operator Physician and Clinical Staff Initial Ricki Nascimento Tool Trouble Shooter Cecilia Barry,BSRN Tool Trouble Shooter Yael Ha,RN Other cathlab, cathlab Recorder Glenn Guillen RCIS(BS) Scrub Dea Pollack RT(R) (BS) Procedures Performed Procedure Location (Site) Vessel Name Coronary Angiograms LCA Left Coronary Drug Eluting Inflatio CIRC Mid CIRC L Heart Cath PTCA CIRC Mid CIRC Wire insertion Fem Art (right) Femoral Art Equipment Time Probation Supervisor Description Size Mfg Part Number Used/Scraped WIRE, BALANCE MIDDLEWEIGHT [id number] 13:21 [employer] 190CM Used 190CM *[id number] TRANSDUCER, TRUWAVE [id number] 11:34 L[address] HA * Used W/STOCKCOCK *[id number] 13:23 [employer] SCI[employer] BALLOON, 2.5 12MM EMERGE MR 2.5 12MM Used *[id number] 11:34 [employer]ES PACK, CCL CUSTOM * Used *[id number] BALLOON, 3.0 X 8MM NC [id number] 13:37 MEDTRONIC 8MM Used EUPHORA *[id number] STENT, 3.0 15 RESOLUTE [id number] 13:30 MEDTRONIC 3.0 15 Used INTEGRITY RX *[id number] 12:23 MEDTRONIC/AVE EBU 3.5 Z2 GUIDE CATHETER FR 6 Used *[id number] 11:38 [employer] 30 JOSE INDEFLATOR Used *[id number] BAND, RADIAL COMPRESSION TR [id number] 13:51 [employer] MEDICAL 29CM Used LARGE 29 *[id number] 11:38 [employer] MEDICAL SHEATH, FR6.5 PRELUDE 11CM FR 6.5 038ACT Used *[id number] 11:34 [employer] WIRE, 3MMJ .035 180CM 180CM Used *[id number] 11:34 NAMIC MANIFOLD, 4 PORT * Used *[id number] 11:34 [employer]ED OMNIPAQUE, 350 MG, 150ML 150ML [id number] Used [id number] 11:34 [facility] BLANKET,WARM AIR CCL * Used *[id number] 12:15 TERUMO MEDICAL SHEATH, FR6 TERUMO (10CM) FR 6 Used *[id number] SHEATH, FR6 TRANSRADIAL [id number] 13:11 TERUMO MEDICAL FR 6 Used SLENDER 10CM *[id number] Equipment Model, Serial, Lot Number and Expiration Data Description Model Number Serial Number Lot Number Expiration Date STENT, 3.0 15 RESOLUTE [id number] 06-04-2018 INTEGRITY RX History: Current Medications Medication Dosage/Unit Route Frequency Last Date/Time Taken ASA Beta Michelle Statins (any) History: Allergies Allergy Reaction Compazine MUSCLE CONTRACTURES Contrast Media Anaphylaxis Thorazine MUSCLE CONTRACTURES *MDRO Multi-Drug Resistant MRSA Organism Zosyn burning iohexol Anaphylaxis prochlorperazine MUSCLE CONTRACTURES diatrizoate meglumine Anaphylaxis gadoteridol Anaphylaxis gadodiamide Anaphylaxis chlorpromazine MUSCLE CONTRACTURES iodixanol Anaphylaxis gadobenic acid Anaphylaxis History: Risk Factors Family History of Hypertension Dyslipidemia Previous [facility] Previous Heart Failure Premature CAD Yes Yes No No No Prior Valve Prior PCI Prior PCIDate Prior CABG Prior CABGDate Surgery No Yes 03/29/2000 Yes 01/27/2001 Cerebrovascular Peripheral Artery Chronic Lung On Dialysis Diabetes Disease Disease Disease No No No No No History: Symptoms/Diagnosis Selection Items Chest pain History: CV Disease Selection Items Known CAD History: Stress Tests Stress or Imaging Studies Performed Yes Standard Exercise Stress Test No Stress Echo No Stress Test SPECT Stress Test SPECT Result Stress Test SPECT Ischemia Risk/Extent Yes Positive Low Stress Test CMR No Cardiac CTA Coronary Calcium Score No No History: Other Disease Selection Items CAD HTN History: VA/CV Data Previous Cath Date 11/13/2016 History: Other Current Smoker No Labs Hgb (g/dl) Hct (%) WBC (l/cumm) Platelets (thousands) 11.60-17.00 35.00-51.00 4.00-11.00 150.00-450.00 8.7 28.9 11.6 193 Glucose (mg/dl) BUN (mg/dl) Creatinine (mg/dl) BUN:Creatinine (1:x) 74.00-106.00 7.00-18.00 0.50-1.30 10.00-20.00 155 52 2.7 19.3 Na (meq/l) K (meq/l) 136.00-145.00 3.50-5.10 137 5 INR (PTT:PT) 0.90-1.10 1.1 CPK-MB (ng/ML) 0.50-3.60 Not Drawn Medication Medication Total Dose (Bolus/Oral) Medication Total Dosage/Unit 1% XYLOCAINE 23 mL BENADRYL 25 mg FENTANYL 125 mcg HEPARIN 9000 units NTG (IC) 200 mcg PEPCID 20 mg RADIAL COCKTAIL 5 mL (Bolus) SOLU-MEDROL 125 mg VERSED 1 mg Medications (Bolus/Oral) Medication Time Given Dosage/Unit Administered By Reason SOLU-MEDROL 11/16/2016 11:39:02 AM 125 mg Rittenour, Cecilia 125 mg SOLU-MEDROL given in lab by Cecilia Barry BSRN in Left Forearm via Peripheral IV. Ordered by Ricki Chung. BENADRYL 11/16/2016 11:40:02 AM 25 mg Rittenour, Cecilia 25 mg BENADRYL given in lab by Cecilia Barry BSRN in Left Forearm via Peripheral IV. Ordered by Ricki Patel. PEPCID 11/16/2016 11:42:02 AM 20 mg Rittenour, Cecilia 20 mg PEPCID given in lab by Cecilia Barry BSRN in Left Forearm via Peripheral IV. Ordered by Ricki Zee. VERSED 11/16/2016 12:11:16 PM 0.5 mg Rittenour, Cecilia 0.5 mg VERSED given in lab by Cecilia Barry BSRN in Left Forearm via Peripheral IV. Ordered by Ricki Logan. FENTANYL 11/16/2016 12:11:25 PM 25 mcg Rittenour, Cecilia 25 mcg FENTANYL given in lab by Cecilia Barry BSRN in Left Forearm via Peripheral IV. Ordered by Ricki Chung. 1% XYLOCAINE 11/16/2016 12:16:56 PM 20 mL Ricki Chung 20 mL 1% XYLOCAINE given in lab by Ricki Chung in Right Groin via Subcutaneous. FENTANYL 11/16/2016 12:19:27 PM 50 mcg Rittenour, Cecilia 50 mcg FENTANYL given in lab by Cecilia Barry BSRN in Left Forearm via Peripheral IV. Ordered by Ricki Chung. 1% XYLOCAINE 11/16/2016 1:08:26 PM 3 mL Ricki Chung 3 mL 1% XYLOCAINE given in lab by Ricki Chung in Right Radial via Subcutaneous. VERSED 11/16/2016 1:09:15 PM 0.5 mg Cecilia Barry 0.5 mg VERSED given in lab by Cecilia Barry BSRN in Left Forearm via Peripheral IV. Ordered by Ricki Logan. FENTANYL 11/16/2016 1:10:12 PM 25 mcg Jeri Barryy 25 mcg FENTANYL given in lab by Cecilia Barry BSRN in Left Forearm via Peripheral IV. Ordered by Ricki Chung. Ntg 200mcg Verapamil 2.5mg Heparin RADIAL COCKTAIL 11/16/2016 1:10:51 PM 5 mL (Bolus) Ricki Chung 3000U 5 mL (Bolus) RADIAL COCKTAIL given in lab by Cecilia Barry BSRN via Radial. Using [Solution Name] . Ordered by Ricki Chung. Reason: Ntg 200mcg Verapamil 2.5mg Heparin 5000U. HEPARIN 11/16/2016 1:18:38 PM 9000 units Yael Ha 9000 units HEPARIN given in lab by Yael Ha RN in Left Antecubital via Peripheral IV. NTG (IC) 11/16/2016 1:45:58 PM 200 mcg Ricki Chung 200 mcg NTG (IC) given in lab by Ricki Chung via Intra-coronary. FENTANYL 11/16/2016 1:52:02 PM 25 mcg Yael Ha 25 mcg FENTANYL given in lab by Yael Ha, MIKEY in Left Forearm via Peripheral IV. Ordered by Ricki Patel. Medication (Drip) Medication Time Given Dosage/Unit Concentration/Unit Diluent (ml) Solution IV Solutions 11/16/2016 11:33:27 AM 0 mL (IV) 500 NaCl .9 Patient arrived on IV Solutions given by tea metcalf in Left Forearm via Peripheral IV. Pump/Dri p Flow = 20 ml/hr using NaCl .9. Ordered by Ricki Chung. Initial Case Assessment Cardiovascular HR Rhythm NIBP Chest Pain 62 SINUS 171/93 0 Edema Present Skin color Skin None Normal Warm Dry Circulatory - Right Pulses Dorsalis Pedis Femoral 1 1 Scale (0,1,2,3,4,d) Scale (0,1,2,3,4,d) Neurological State Oriented to time-place- Alert Moves all extremities person Respiration - General Respiration Rate SpO2 (%) (B/min) 15 98 Final Case Assessment Cardiovascular HR Rhythm NIBP Chest Pain 63 SINUS 165/95 0 Edema Present Skin color Skin None Normal Warm Dry Circulatory - Right Pulses Dorsalis Pedis Femoral 1 1 Scale (0,1,2,3,4,d) Scale (0,1,2,3,4,d) Neurological State Oriented to time-place- Alert Moves all extremities person Respiration - General Respiration Rate SpO2 (%) (B/min) 15 98 Chronological Log Time Study Chronological Log 11:33:17 Patient arrived via Bed. 11:33:17 Patient Name, D.O.B, / Armband Verified By R.N. 11:33:18 Consent signed by the physician and the patient and verified by the Washing Tub Operator staff. 11:33:18 Pre-op and post- op instructions given; patient acknowledges understanding of instructions. 11:33:19 Verbal Stimulation=2 Physical Stimulation=2 Airway=2 Respiration=2 TOTAL=8. (0=absent, 1=li mited, 2=present) 11:33:20 Presedation assessment performed by Washing Tub Operator RN. 11:33:20 Immediate Presedation assesment performed by physician. 11:33:21 Patient has been NPO for More than 6Hrs. 11:33:21 Skin Breakdown- open wound left heel (+ MRSA) 11:33:26 Ever Prominences Protected 11:33:26 A # 20 IV was noted in the Forearm (left). Grade = 0 Patient arrived on IV Solutions given by cathlab, cathlab in Left Forearm via Peripheral IV. Pu mp/Drip Flow = 20 ml/hr 11:33:27 using NaCl .9. Ordered by Ricki Chung. 11:33:28 History and physical on the chart or being dictated. 125 mg SOLU-MEDROL given in lab by Cecilia Barry BSRN in Left Forearm via Peripheral IV. Or dered by Sheldon 11:39:02 Ricki. 25 mg BENADRYL given in lab by Cecilia Barry BSRN in Left Forearm via Peripheral IV. Ordere d by Sheldon, 11:40:02 Ricki. 11:42:02 20 mg PEPCID given in lab by Cecilia Barry BSRN in Left Forearm via Peripheral IV. Orde red by Ricki Chung. Vitals capture started with the following parameters, Patient=Adult, Interval=5 min, Initial Pr qxfubh=088 mmHg, 11:46:12 Deflation Rate=5 mmHg, Cuff placed on Left Leg Assessment: Initial Case, HR=62 BPM, Rhythm=SINUS, CCZX=298/93 mmhg, Chest Pain=0, Edema=None, Color=Normal, Skin = Warm, Dry 11:46:14 Right Pulses: Bill Ped=1, Femoral=1 Neurological: State=Alert, Ox3, WHITE Respiration: Resp=15 B/min, SpO2=98 % 11:46:44 Reference ECG taken 11:47:03 HR=60 bpm, ABKG=905/93 mmhg, AoO6=340.0 %, Resp=10 B/min, Pain=0, Min=10, Heredia=2 11:51:54 HR=54 bpm, VCSP=001/79 mmhg, GtO0=019.0 %, Resp=12 B/min, Pain=0, Min=10, Heredia=2 11:56:10 Right groin prepped with 2% chlorhexidine, and with a 3 min. waiting time. 11:57:25 HR=59 bpm, WNXI=335/88 mmhg, SpO2=99.0 %, Resp=11 B/min, Pain=0, Min=10, Hreedia=2 11:59:32 MD paged 12:01:17 Pressure channel 1 zeroed. 12:01:50 HR=57 bpm, YRDB=322/91 mmhg, DjO9=335.0 %, Resp=15 B/min, Pain=0, Min=10, Heredia=2 12:02:26 MD responded 12:06:10 MD arrived. 12:06:16 Contrast Scanned 12:06:17 Immediate Presedation assesment performed by physician. 12:07:38 HR=53 bpm, CQMS=704/84 mmhg, HaZ4=281.0 %, Resp=10 B/min, Pain=0, Min=10, Heredia=2 12:08:22 Immediate Presedation assesment performed by physician. 12:08:23 Contrast Scanned 0.5 mg VERSED given in lab by Cecilia Barry BSRN in Left Forearm via Peripheral IV. Ordered by Sheldon, 12:11:16 Ricki. 25 mcg FENTANYL given in lab by Cecilia Barry BSRN in Left Forearm via Peripheral IV. Order ed by Sheldon, 12:11:25 Ricki. 12:11:48 HR=57 bpm, HCCK=630/95 mmhg, PpP4=869.0 %, Resp=16 B/min, Pain=0, Min=10, Heredia=2 Time Out. Correct patient, correct procedure,correct physician, ,power injector not loaded with contrast with surgical 12:15:02 team present. Time Out Concurred by MD, individual staff in procedure 12:15:36 Case Start 12:15:38 Verbal Stimulation=2 Physical Stimulation=2 Airway=2 Respiration=2 TOTAL=8. (0=absent, 1=li mited, 2=present) 12:16:56 20 mL 1% XYLOCAINE given in lab by Ricki Chung in Right Groin via Subcutaneous. 12:17:24 HR=60 bpm, FEMK=105/87 mmhg, SpO2=99.0 %, Resp=15 B/min, Pain=0, Min=10, Heredia=2 12:18:24 Access site was Right Femoral Artery. 12:18:29 Wire will not advance, pressure applied to site. 50 mcg FENTANYL given in lab by Cecilia Barry BSRN in Left Forearm via Peripheral IV. Order ed by Sheldon, 12:19:27 Ricki. 12:22:00 HR=56 bpm, KGBZ=992/80 mmhg, SpO2=98.0 %, Resp=20 B/min, Pain=0, Min=10, Heredia=2 12:26:57 HR=60 bpm, KLWT=176/92 mmhg, SpO2=98.0 %, Resp=17 B/min, Pain=0, Min=10, Heredia=2 12:32:00 HR=57 bpm, HPPM=634/87 mmhg, TvZ8=163.0 %, Resp=19 B/min, Pain=0, Min=10, Heredia=2 12:36:59 HR=60 bpm, QYCK=622/87 mmhg, SpO2=99.0 %, Resp=10 B/min, Pain=0, Min=10, Heredia=2 12:39:02 Dr. Chung still attempting RFA access. 12:42:50 HR=56 bpm, UPJQ=863/85 mmhg, BfN2=477.0 %, Resp=19 B/min, Pain=0, Min=10, Heredia=2 12:47:01 HR=64 bpm, WQUM=750/102 mmhg, SpO2=98.0 %, Resp=11 B/min, Pain=0, Min=10, Heredia=2 12:51:26 Dr. Chung still attempting RFA access. 12:52:01 HR=61 bpm, HVDI=766/86 mmhg, SpO2=98.0 %, Resp=7 B/min, Pain=0, Min=10, Heredia=2 12:56:57 HR=62 bpm, YHSF=986/93 mmhg, FdJ0=126.0 %, Resp=15 B/min, Pain=0, Min=10, Heredia=2 13:01:40 Vitals capture stopped. 13:03:02 Unable to access RFA, proceeding with RRADA 13:04:48 Allens test performed on the right radial and ulnar artery. Vitals capture started with the following parameters, Patient=Adult, Interval=5 min, Initial Pr qrxnwn=391 mmHg, 13:04:55 Deflation Rate=5 mmHg, Cuff placed on Left Leg 13:06:21 HR=62 bpm, CSXN=793/99 mmhg, SpO2=96.0 %, Resp=8 B/min, Pain=0, Min=10, Heredia=2 13:06:56 Right Radial prepped with 2% chlorhexidine, and draped after a 3 min. waiting time. 13:08:26 3 mL 1% XYLOCAINE given in lab by Ricki Chung in Right Radial via Subcutaneous. 0.5 mg VERSED given in lab by Cecilia Barry BSRN in Left Forearm via Peripheral IV. Ordered by Sheldon, 13:09:15 Ricki. 25 mcg FENTANYL given in lab by Cecilia Barry BSRN in Left Forearm via Peripheral IV. Order ed by Sheldon 13:10:12 Ricki. 13:10:18 Access site was Right Radial Artery. A SHEATH, FR6 TRANSRADIAL SLENDER 10CM FR 6 was advanced into the Radial (right) using the Perc utaneous 13::26 technique. 13:10:39 HR=65 bpm, BDXJ=134/102 mmhg, SpO2=94.0 %, Resp=11 B/min, Pain=0, Min=10, Heredia=2 5 mL (Bolus) RADIAL COCKTAIL given in lab by Cecilia Barry BSRN via Radial. Using [Solution Name]. Ordered by 13:10:51 Ricki Chugn. Reason: Ntg 200mcg Verapamil 2.5mg Heparin 5000U. A EBU 3.5 Z2 GUIDE CATHETER FR 6 was advanced over a wire. OMNIPAQUE, 350 MG, 150ML 150ML was u sed for :11:13 injections. Recorded Pressure: Ao, HR=62, Condition=Condition 1 13:14:31 (Aorta) Ao 122/70/93 13:15:40 HR=62 bpm, BVIE=193/76 mmhg, SpO2=96.0 %, Resp=10 B/min, Pain=0, Min=10, Heredia=2 13:17:32 The LCA was injected and visualized at various angles. OMNIPAQUE, 350 MG, 150ML 150ML used . 13:18:38 9000 units HEPARIN given in lab by Yael Ha RN in Left Antecubital via Peripheral IV. 13:20:17 A WIRE, BALANCE MIDDLEWEIGHT 190CM 190CM was inserted via Fem Art (right). 13:20:41 HR=59 bpm, TPQH=671/69 mmhg, SpO2=97.0 %, Resp=12 B/min, Pain=0, Min=10, Heredia=2 13:21:45 Interventional wire has crossed the lesion A BALLOON, 2.5 12MM EMERGE MR 2.5 12MM was inserted over WIRE, BALANCE MIDDLEWEIGHT 190CM 190CM via 13:22:08 the Radial (right). A BALLOON, 2.5 12MM EMERGE MR 2.5 12MM over a WIRE, BALANCE MIDDLEWEIGHT 190CM 190CM in the CIR C Mid 13:24:44 was inflated using a 30 JOSE INDEFLATOR at 10 jose for 40 sec. 13:25:38 HR=70 bpm, CQDK=195/97 mmhg, SpO2=95.0 %, Resp=12 B/min, Pain=0, Min=10, Heredia=2 13:25:57 Balloon Removed. 13:27:35 Activated Clotting Time Drawn 13:31:16 HR=58 bpm, YXWN=883/83 mmhg, SpO2=99 %, Resp=16 B/min, Pain=0, Min=10, Heredia=2 A STENT, 3.0 15 RESOLUTE INTEGRITY RX 3.0 15 was advanced through a EBU 3.5 Z2 GUIDE CATHETER F R 6 over a 13:33:45 WIRE, BALANCE MIDDLEWEIGHT 190CM 190CM. A STENT, 3.0 15 RESOLUTE INTEGRITY RX 3.0 15 was deployed using a 30 JOSE INDEFLATOR at 9 atmosp heres for 30 13:34:04 seconds in the CIRC Mid. 13:34:31 Delivery device removed 13:34:50 ACT (Normal Range 90-180) = 390 13:35:00 Activated Clotting Time Drawn 13:35:38 HR=57 bpm, USLN=702/92 mmhg, SpO2=94.0 %, Resp=11 B/min, Pain=0, Min=10, Heredia=2 A BALLOON, 3.0 X 8MM NC EUPHORA 8MM was inserted over WIRE, BALANCE MIDDLEWEIGHT 190CM 190CM vi a the 13:36:16 CIRC Mid. 13:40:41 HR=58 bpm, VZCO=887/89 mmhg, SpO2=92.0 %, Resp=15 B/min, Pain=0, Min=10, Heredia=2 A BALLOON, 3.0 X 8MM NC EUPHORA 8MM over a WIRE, BALANCE MIDDLEWEIGHT 190CM 190CM in the CIRC M id was 13:40:48 inflated using a 30 JOSE INDEFLATOR at 16 jose for 30 sec. 13:41:34 ACT (Normal Range 90-180) = 347 A BALLOON, 3.0 X 8MM NC EUPHORA 8MM over a WIRE, BALANCE MIDDLEWEIGHT 190CM 190CM in the CIRC M id was 13:42:20 inflated using a 30 JOSE INDEFLATOR at 16 jose for 20 sec. A BALLOON, 3.0 X 8MM NC EUPHORA 8MM over a WIRE, BALANCE MIDDLEWEIGHT 190CM 190CM in the CIRC M id was 13:43:28 inflated using a 30 JOSE INDEFLATOR at 20 jose for 20 sec. 13:45:38 HR=61 bpm, VKYQ=916/91 mmhg, SpO2=95.0 %, Resp=10 B/min, Pain=0, Min=10, Heredia=2 13:45:47 Balloon Removed. 13:45:58 200 mcg NTG (IC) given in lab by Ricki Chung via Intra-coronary. 13:48:33 Wire removed 13:49:09 A WIRE, 3MMJ .035 180CM 180CM was inserted via Fem Art (right). 13:49:26 Catheter was removed 13:49:29 Wire removed 13:50:35 HR=65 bpm, ZVLI=504/95 mmhg, SpO2=94.0 %, Resp=17 B/min, Pain=0, Min=10, Heredia=2 Radial Compression Device Used. 10 mLs of air placed in BAND, RADIAL COMPRESSION TR LARGE 29 29 CM. Affected 13:50:54 hand 95 % O2 saturation. 25 mcg FENTANYL given in lab by Yael Ha, RN in Left Forearm via Peripheral IV. Ordere d by Sheldon, 13:52:02 Ricki. 13:53:18 Case End 13:53:26 No case complications noted. 13:53:29 Cine recording checked. 13:53:44 Verbal Stimulation=2 Physical Stimulation=2 Airway=2 Respiration=2 TOTAL=8. (0=absent, 1=li mited, 2=present) 13:53:53 A Left Heart Cath was performed. Assessment: Final Case, HR=63 BPM, Rhythm=SINUS, PWKG=795/95 mmhg, Chest Pain=0, Edema=None, Color=Normal, Skin = Warm, Dry 13:54:06 Right Pulses: Bill Ped=1, Femoral=1 Neurological: State=Alert, Ox3, WHITE Respiration: Resp=15 B/min, SpO2=98 % 13:55:00 Sterile dressing applied to site 13:55:40 HR=61 bpm, GCSY=689/94 mmhg, SpO2=94.0 %, Resp=11 B/min, Pain=0, Min=10, Heredia=2 End Study - Contrast Media Used In Study Contrast Total Opened (mL) Total Used (mL) Total Wasted (mL) Omnipaque 150 70 80 End Study - Maximum Contrast Load Max Contrast Load (mL) 230.6 End Study - Radiation Exposure Fluoro Time (minutes) 15.7 End Study - Patient Disposition Complications Transferred To Interventional Outcome No Washing Tub Operator Holding successful
--- NOTE | 2016-11-16 17:29 | PD.CARD.PN ---
Subjective Subjective Remarks Post-cath doing well No complaints Objective Medications Current Medications Medications (Trade) Dose Ordered Sig/Yosi Route Start Time Stop Time Status Last Admin (NS Flush) 2 ml UNSCH PRN IV FLUSH 11/13/16 02:00 (NS Flush) 2 ml BID IV FLUSH 11/13/16 09:00 11/14/16 21:01 (Zofran Inj) 4 mg Q6H PRN IVP 11/13/16 02:00 (Narcan Inj) 0.4 mg UNSCH PRN IV 11/13/16 02:00 (Senokot) 17.2 mg Q12H PRN PO 11/13/16 02:00 (Dulcolax Supp) 10 mg DAILY PRN RECTAL 11/13/16 02:00 (Lactulose Liq) 30 ml DAILY PRN PO 11/13/16 02:00 (Roxicodone) 20 mg Q4H PRN PO 11/13/16 02:15 11/16/16 07:34 (Ferrous Sulfate) 325 mg TID PO 11/13/16 09:00 11/16/16 07:31 (Apresoline) 100 mg TID PO 11/13/16 09:00 11/16/16 07:32 (Lipitor) 40 mg HS PO 11/13/16 21:00 11/15/16 21:14 (Lasix) 20 mg BID@,18 PO 11/13/16 09:00 11/16/16 07:32 (Synalar 0.01% Cream) 1 applic HS TOPICAL 11/13/16 21:00 11/15/16 21:16 (Margarita-Colace) 1 tab BID PO 11/13/16 09:00 11/16/16 07:32 (Santyl Oint) 1 applic DAILY TOPICAL 11/13/16 09:00 11/13/16 08:47 (Miralax) 17 gm DAILY PO 11/13/16 09:00 (Theragran) 1 tab DAILY PO 11/13/16 09:00 11/16/16 07:33 (Toprol Xl) 50 mg DAILY PO 11/13/16 09:00 11/16/16 07:33 (Vitamin B12) 1,000 mcg DAILY PO 11/13/16 09:00 11/16/16 07:33 (Rocaltrol) 0.5 mcg DAILY PO 11/13/16 09:00 11/16/16 09:54 (Aspirin Chew) 81 mg DAILY CHEW 11/13/16 09:00 11/15/16 09:00 (Vitamin C) 1,000 mg DAILY PO 11/13/16 09:00 11/16/16 07:33 (Lioresal) 10 mg BID PO 11/13/16 09:00 11/16/16 07:32 (Atropine Inj) 0.5 mg UNSCH PRN IV 11/13/16 13:45 Sodium Chloride 1,000 ml @ 75 mls/hr [id number] IV 11/13/16 15:00 11/16/16 09:40 (Norvasc) 5 mg DAILY PO 11/13/16 16:00 11/16/16 07:33 (Plavix) 75 mg DAILY PO 11/16/16 09:00 11/16/16 07:32 Sodium Chloride 1,000 ml @ 60 mls/hr [id number] IV 11/16/16 14:07 11/17/16 02:06 (Heparin Inj) 5,000 units Q8H SQ 11/17/16 10:00 Vital Signs / I&O Vital Signs Date Time Temp Pulse Resp B/P (MAP) Pulse Ox O2 Delivery O2 Flow Rate FiO2 11/16/16 14:13 96 Room Air 11/16/16 08:30 55 11/16/16 08:20 98.0 58 22 136/72 (93) 100 11/16/16 04:30 98.3 66 17 140/66 (90) 100 11/16/16 00:39 97.9 65 17 127/74 (91) 97 11/15/16 20:00 98.3 61 17 147/71 (96) 96 11/15/16 18:00 57 I/O 11/15/16 11/15/16 11/15/16 11/16/16 11/16/16 11/16/16 07:00 15:00 23:00 07:00 15:00 23:00 Intake Total 360 ml 600 ml 1300 ml 480 ml Output Total 2250 ml 650 ml 1300 ml 3300 ml Balance -1890 ml -50 ml 0 ml -2820 ml Intake Oral 360 ml 1300 ml 480 ml Packed Cells 600 ml Output Urine Total 2250 ml 1300 ml 3300 ml Stool Total 650 ml Physical Exam GENERAL: NAD, AAOx3 SKIN: Warm and dry. HEAD: Atraumatic. Normocephalic. EYES: Pupils equal and round. No scleral icterus. No injection or drainage. ENT: No nasal bleeding or discharge. Mucous membranes pink and moist. NECK: Trachea midline. No JVD. CARDIOVASCULAR: Regular rate and rhythm. RESPIRATORY: No accessory muscle use. Clear to auscultation. Breath sounds equal bilaterally. GASTROINTESTINAL: Abdomen soft, non-tender, nondistended. Hepatic and splenic margins not palpable. MUSCULOSKELETAL: Changes due to venous status bilaterally. Right femoral no hematoma/bruit NEUROLOGICAL: Awake and alert. Paraplegic PSYCHIATRIC: Appropriate mood and affect; insight and judgment normal. Laboratory Laboratory Tests Test 11/16/16 07:47 White Blood Count 11.6 TH/MM3 Red Blood Count 3.35 MIL/MM3 Hemoglobin 8.7 GM/DL Hematocrit 28.9 % Mean Corpuscular Volume 86.1 FL Mean Corpuscular Hemoglobin 26.0 PG Mean Corpuscular Hemoglobin Concent 30.2 % Red Cell Distribution Width 22.0 % Platelet Count 193 TH/MM3 Mean Platelet Volume 8.1 FL Assessment and Plan Problem List: (1) Chest pain ICD Codes: R07.9 - Chest pain, unspecified Status: Acute (2) CAD (coronary artery disease) ICD Codes: I25.10 - Atherosclerotic heart disease of [place] coronary artery without angina pectoris Status: Chronic (3) ST segment changes on electrocardiogram ICD Codes: R94.31 - Abnormal electrocardiogram [ECG] [EKG] Status: Acute (4) Hypertension ICD Codes: I10 - Essential (primary) hypertension Status: Chronic (5) Anemia ICD Codes: D64.9 - Anemia, unspecified Status: Chronic (6) Morbid obesity with BMI of 45.0-49.9, adult ICD Codes: E66.01 - Morbid (severe) obesity due to excess calories; Z68.42 - Body mass index (BMI) 45.0-49.9, adult Status: Chronic (7) Anemia in chronic kidney disease ICD Codes: N18.9 - Chronic kidney disease, unspecified; D63.1 - Anemia in chronic kidney disease Status: Acute (8) Paraplegia ICD Codes: G82.20 - Paraplegia Status: Chronic Assessment and Plan 1) Hx CABG x2 both patent Overall mid LCX lesion and small PDA distally 2) CKD Gentle hydration 3) CAD with unstable angina with EKG changes MARCELLUS (3x15) to LCx Con't ASA/Plavix 4) Check labs in the morning, if no problems then possible rehab Ricki Chung DO Nov 16, 2016 17:29
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
[2016-11-16] MEDS: ATORVASTATIN 40 MG TAB PO SCH (20:17)
[2016-11-16] MEDS: FLUOCINOLONE ACETONIDE 0.01% CR 15 GM TUBE TOPICAL SCH (20:20)
[2016-11-17] VITALS (26 sets, daily range): BP systolic 127–158; BP diastolic 79–89; PULSE 55–68; RESP 18; TEMP 97–98.7; O2SAT 95–98
--- NOTE | 2016-11-17 00:04 | MA ---
cc: RICKI REMY DO DATE November 16, 2016 PROCEDURE Coronary angiogram, Resolute drug-eluting stent (3 x 15) to left circumflex, moderate sedation 100 minutes. PREPROCEDURE DIAGNOSIS Chest pain with EKG changes, unstable angina, ____N-STEMI. POSTPROCEDURE DIAGNOSIS Coronary artery disease status post Resolute drug-eluting stent (3 x 15) to left circumflex, history of coronary artery bypass grafting (2/2 patent). MEDICATIONS 1. Pepcid 20 milligrams. 2. Benadryl 25 milligrams 3. Solu-Medrol 125 milligrams. 4. Versed 1 milligram. 5. Fentanyl 125 micrograms. 6. Nitro 200 micrograms. 7. Verapamil 2.5 milligrams. 8. Heparin 1400 units. CONTRAST 70 cc. FLUOROSCOPY 15.7 minutes. MODERATE SEDATION 100 minutes. ESTIMATED BLOOD LOSS 10 cc. PROCEDURAL SUMMARY Primitivo Landaverde is a pleasant 61-year-old male who originally presented with an N-STEMI. At that time he did not want a cardiac catheterization and underwent stress testing. Stress test showed scar on the inferior lateral portions and we attempted to treat him medically. During rehab he started having chest pain with inferolateral T-wave inversions showing ischemia. During the previous cardiac catheterization he was found to have a small PDA with diffuse disease most likely not capable of intervention and a mid circumflex lesion of 80% which supplies a large territory as well as collaterals to the right coronary. Because of this it was felt that intervening on the left circumflex was reasonable due to his chest pain on multiple antianginals as well as inferior lateral ischemic changes on EKG. Risks, benefits and alternatives were explained to him and he consented as such. Right femoral artery was attempted to be accessed but after multiple times was unable to. Because of this the right radial artery was used although initially trying to avoid as he has chronic kidney disease stage IV. Right radial artery was accessed using modified Seldinger technique and placement of a 5/6 Cymro slender sheath. This was easily aspirated and flushed. Heparin was given as an anticoagulant. An EBU 3.5 guide catheter was advanced to the ascending aorta and engaged in the left main. A BMW wire was advanced in the distal portion of a left circumflex. A compliant balloon (2.5 x 12) was then inflated over the lesion. A Resolute drug-eluting stent (3 x 15) was then inflated at nominal pressure over the lesion. A noncompliant balloon (3 x 8) was then used to post dilate the stent. BMW wire was removed. Final angiogram shows a well opposed stent with no residual disease. No dissections or perforations were noted. EBU catheter was removed over a J-wire. A radial band was placed over the arteriotomy site for hemostasis. The patient left the labor/excavator cardiovascularly stable. IMPRESSION 1. Recent N-STEMI. 2. Coronary artery disease status post Resolute drug-eluting stent (3 x 15) to the left circumflex, history of CABG x2 (2/2 bypass grafts patent) 3. Classic symptoms of ischemia with EKG changes in the inferior lateral portions. RECOMMENDATIONS 1. Mr. Landaverde underwent PCI of his left circumflex with a Resolute drug-eluting stent (3 x 15). Because of this he will be continued on aspirin and Plavix. 2. He will be watched overnight and his creatinine checked in the morning as he has significant CKD. 3. If stable in the morning he may be transferred to rehab per the primary and case management. 4. As far as his RCA goes its an extremely small vessel with diffuse disease and most likely is not intervenable and so should be treated medically. 5. At rehab he should avoid lifting more than 10 pounds with his right hand for 3 days. 6. He will not be on an CANDIDO inhibitor as he has significant chronic kidney disease. Thank you for allowing me to see Primitivo Landaverde. If there are any questions please do not hesitate to call. Ricki Remy DO VGP/EO /10:15 PM /11:50 PM
[2016-11-17] MEDS: CLOPIDOGREL 75 MG TAB PO SCH (08:31)
[2016-11-17] MEDS: CYANOCOBALAMIN 1,000 MCG TAB PO SCH (08:31)
[2016-11-17] MEDS: ASCORBIC ACID 500 MG TAB PO SCH (08:32)
[2016-11-17] MEDS: BACLOFEN 10 MG TAB PO SCH ×2 (08:32→20:19)
[2016-11-17] MEDS: CALCITRIOL 0.25 MCG CAP PO SCH (08:32)
[2016-11-17] MEDS: DOCUSATE SODIUM 50 MG/SENNA 8.6 MG TAB PO SCH ×2 (08:32→20:19)
[2016-11-17] MEDS: hydrALAZINE HCL 100 MG TAB PO SCH ×3 (08:32→17:25)
[2016-11-17] MEDS: ASPIRIN 81 MG CHEW TAB CHEW SCH (08:32)
[2016-11-17] MEDS: FERROUS SULFATE 325 MG (65 MG ELEMENTAL IRON) TAB PO SCH ×3 (08:33→17:25)
[2016-11-17] MEDS: FUROSEMIDE 20 MG TAB PO SCH ×2 (08:33→17:25)
[2016-11-17] MEDS: amLODIPine BESYLATE 5 MG TAB PO SCH (08:33)
[2016-11-17] MEDS: METOPROLOL SUCCINATE 50 MG EXTENDED RELEASE TAB PO SCH (08:33)
[2016-11-17] MEDS: SODIUM CHLORIDE 0.9% FLUSH 10 ML FLUSH IV FLUSH SCH ×2 (08:37→20:19)
[2016-11-17] MEDS: MULTIVITAMIN TAB PO SCH (08:37)
[2016-11-17] MEDS: POLYETHYLENE GLYCOL 17 GM PKG PO SCH (08:38)
[2016-11-17] MEDS: COLLAGENASE OINT 30 GM TUBE TOPICAL SCH (09:00)
[2016-11-17] MEDS: SODIUM CHLOR 0.9% 1000 ML INJ 1,000 ML IV SCH (10:32)
[2016-11-17] MEDS: HEPARIN SODIUM - SQ 10,000 UNITS/ML VIAL SQ SCH ×2 (10:34→17:26)
--- NOTE | 2016-11-17 12:02 | PD.WCN.NOT ---
Wound Consult Description: Consult placed for Wound Management of left heel wound per Dr Paz Communicated with: MIKEY Adam [facility], [place] JENSEN [facility], Call placed to Doctor Brandi regarding orders Recommendation: Please cleanse wound to L heel with normal saline or wound cleanser and pat dry. Apply Optifoam AG gentle over wound and secure with rolled gauze and tape. Change dressing every other day or PRN if saturated or dislodged. Additional Information: Patient seen on [facility] for evaluation of wound to L heel. Patient previously seen by wound care for L heel wound on previous admission. Removed rolled gauze, gauze and alginate dressing in place to reveal wound with coagulated sanguinous drainage. Cleansed wound with normal saline and gauze pad to reveal wound bed with 100% pale red granulation tissue. Wound bed is moist, without active drainage.Periwound is noted with hyperkeratotic tissue. Patient states," I have had that wound for a while, it was all the way down to the bone, from pressure. It had green drainage recently." No foul odor or purulent drainage seen today. Patient has Santyl ordered. Wound measures 4 cm x 5 cm x ~0.2cm. applied dry 4x4 gauze pads and secured with rolled gauze and tape. Until appropriate supplies can be obtained. Floated heel on pillow. Batsheva Turner [facility] Nov 17, 2016 12:02
[2016-11-17 12:58] LABS: AUTOMATED NEUTROPHIL # 10.8 TH/MM3 (1.8-7.7); BASOPHIL % 0.1 % (0.0-2.0); HEMATOCRIT 23.8 % (39.0-51.0); HEMO FLAGS DIFF FINAL; LYMPH % 10.7 % (9.0-44.0); LYMPHOCYTE # 1.4 TH/MM3 (1.0-4.8); MEAN CELL VOLUME 85.2 FL (80.0-100.0); MEAN CORPUSCULAR HEMOGLOBIN 26.8 PG (27.0-34.0); MEAN CORPUSCULAR HGB CONC 31.5 % (32.0-36.0); MONO % 7.2 % (0.0-8.0); PLATELET COUNT 195 TH/MM3 (150-450); RED BLOOD COUNT 2.79 MIL/MM3 (4.50-5.90); RED CELL DISTRIBUTION WIDTH 21.5 % (11.6-17.2); WHITE BLOOD COUNT 13.1 TH/MM3 (4.0-11.0)
[2016-11-17 13:26] LABS: BICARBONATE 21.4 MEQ/L (21.0-32.0); POTASSIUM 4.2 MEQ/L (3.5-5.1)
--- NOTE | 2016-11-17 13:38 | EKG ---
Date Performed: 11/17/2016 Time Performed: 06:01:48 PTAGE: 61 years EKG: Sinus rhythm Extensive ST-T changes may be due to myocardial ischemia Abnormal ECG Since PREVIOUS TRACING , no significant change noted PREVIOUS TRACIN11/13/2016 08.49 DOCTOR: Isabelle Saleem Interpretating Date/Time 11/17/2016 13:36:43
[2016-11-17] MEDS ORDERED: OXYC-392 PO (13:48)
[2016-11-17] MEDS ORDERED: AMLO5 PO (13:48)
[2016-11-17] MEDS ORDERED: PLAV75TA29 PO (13:48)
--- NOTE | 2016-11-17 18:55 | PD.CARD.PN ---
Subjective Subjective Remarks Patient seen this morning Doing well post-cath, no chest pain/SOB Objective Medications Current Medications Medications (Trade) Dose Ordered Sig/Yosi Route Start Time Stop Time Status Last Admin (NS Flush) 2 ml UNSCH PRN IV FLUSH 11/13/16 02:00 (NS Flush) 2 ml BID IV FLUSH 11/13/16 09:00 11/17/16 08:37 (Zofran Inj) 4 mg Q6H PRN IVP 11/13/16 02:00 (Narcan Inj) 0.4 mg UNSCH PRN IV 11/13/16 02:00 (Senokot) 17.2 mg Q12H PRN PO 11/13/16 02:00 (Dulcolax Supp) 10 mg DAILY PRN RECTAL 11/13/16 02:00 (Lactulose Liq) 30 ml DAILY PRN PO 11/13/16 02:00 (Roxicodone) 20 mg Q4H PRN PO 11/13/16 02:15 11/17/16 17:26 (Ferrous Sulfate) 325 mg TID PO 11/13/16 09:00 11/17/16 17:25 (Apresoline) 100 mg TID PO 11/13/16 09:00 11/17/16 17:25 (Lipitor) 40 mg HS PO 11/13/16 21:00 11/16/16 20:17 (Lasix) 20 mg BID@,18 PO 11/13/16 09:00 11/17/16 17:25 (Synalar 0.01% Cream) 1 applic HS TOPICAL 11/13/16 21:00 11/15/16 21:16 (Margarita-Colace) 1 tab BID PO 11/13/16 09:00 11/17/16 08:32 (Santyl Oint) 1 applic DAILY TOPICAL 11/13/16 09:00 11/13/16 08:47 (Miralax) 17 gm DAILY PO 11/13/16 09:00 (Theragran) 1 tab DAILY PO 11/13/16 09:00 11/17/16 08:37 (Toprol Xl) 50 mg DAILY PO 11/13/16 09:00 11/17/16 08:33 (Vitamin B12) 1,000 mcg DAILY PO 11/13/16 09:00 11/17/16 08:31 (Rocaltrol) 0.5 mcg DAILY PO 11/13/16 09:00 11/17/16 08:32 (Aspirin Chew) 81 mg DAILY CHEW 11/13/16 09:00 11/17/16 08:32 (Vitamin C) 1,000 mg DAILY PO 11/13/16 09:00 11/17/16 08:32 (Lioresal) 10 mg BID PO 11/13/16 09:00 11/17/16 08:32 (Atropine Inj) 0.5 mg UNSCH PRN IV 11/13/16 13:45 Sodium Chloride 1,000 ml @ 75 mls/hr [id number] IV 11/13/16 15:00 11/17/16 10:32 (Norvasc) 5 mg DAILY PO 11/13/16 16:00 11/17/16 08:33 (Plavix) 75 mg DAILY PO 11/16/16 09:00 11/17/16 08:31 (Heparin Inj) 5,000 units Q8H SQ 11/17/16 10:00 11/17/16 17:26 Vital Signs / I&O Vital Signs Date Time Temp Pulse Resp B/P (MAP) Pulse Ox O2 Delivery O2 Flow Rate FiO2 11/17/16 18:28 18 11/17/16 18:01 58 11/17/16 17:41 67 11/17/16 16:22 66 11/17/16 15:10 65 11/17/16 15:10 98.0 65 18 147/85 (105) 95 11/17/16 14:10 65 11/17/16 13:20 65 11/17/16 12:49 66 11/17/16 11:54 64 11/17/16 11:12 64 11/17/16 11:12 97.0 64 18 138/83 (101) 96 11/17/16 10:00 66 11/17/16 09:00 64 11/17/16 08:00 64 11/17/16 07:56 55 11/17/16 07:00 98.4 64 18 158/89 (112) 97 11/17/16 06:00 63 11/17/16 05:00 61 11/17/16 04:00 68 11/17/16 03:00 98.7 64 18 149/84 (105) 97 11/17/16 03:00 65 11/17/16 02:00 65 11/17/16 01:00 62 11/17/16 00:00 67 11/16/16 23:11 98.8 81 18 139/81 (100) 98 11/16/16 23:00 81 11/16/16 22:00 70 11/16/16 21:00 72 11/16/16 20:00 68 11/16/16 20:00 98.3 71 18 155/91 (112) 97 11/16/16 19:00 63 I/O 11/16/16 11/16/16 11/16/16 11/17/16 11/17/16 11/17/16 06:59 14:59 22:59 06:59 14:59 22:59 Intake Total 480 ml 1784 ml 861 ml Output Total 3300 ml 1600 ml 3000 ml 2400 ml Balance -2820 ml -1600 ml -1216 ml -1539 ml Intake Oral 480 ml 1100 ml 240 ml IV Total 684 ml 621 ml Output Urine Total 3300 ml 1600 ml 2400 ml 2350 ml Stool Total 600 ml 50 ml Physical Exam GENERAL: NAD, AAOx3 SKIN: Warm and dry. HEAD: Atraumatic. Normocephalic. EYES: Pupils equal and round. No scleral icterus. No injection or drainage. ENT: No nasal bleeding or discharge. Mucous membranes pink and moist. NECK: Trachea midline. No JVD. CARDIOVASCULAR: Regular rate and rhythm. RESPIRATORY: No accessory muscle use. Clear to auscultation. Breath sounds equal bilaterally. GASTROINTESTINAL: Abdomen soft, non-tender, nondistended. Hepatic and splenic margins not palpable. MUSCULOSKELETAL: Changes due to venous status bilaterally. Right femoral no hematoma/bruit NEUROLOGICAL: Awake and alert. Paraplegic PSYCHIATRIC: Appropriate mood and affect; insight and judgment normal. Laboratory Laboratory Tests Test 11/17/16 12:33 White Blood Count 13.1 TH/MM3 Red Blood Count 2.79 MIL/MM3 Hemoglobin 7.5 GM/DL Hematocrit 23.8 % Mean Corpuscular Volume 85.2 FL Mean Corpuscular Hemoglobin 26.8 PG Mean Corpuscular Hemoglobin Concent 31.5 % Red Cell Distribution Width 21.5 % Platelet Count 195 TH/MM3 Mean Platelet Volume 7.7 FL Neutrophils (%) (Auto) 82.0 % Lymphocytes (%) (Auto) 10.7 % Monocytes (%) (Auto) 7.2 % Eosinophils (%) (Auto) 0.0 % Basophils (%) (Auto) 0.1 % Neutrophils # (Auto) 10.8 TH/MM3 Lymphocytes # (Auto) 1.4 TH/MM3 Monocytes # (Auto) 0.9 TH/MM3 Eosinophils # (Auto) 0.0 TH/MM3 Basophils # (Auto) 0.0 TH/MM3 CBC Comment DIFF FINAL Differential Comment Blood Urea Nitrogen 40 MG/DL Creatinine 2.24 MG/DL Random Glucose 134 MG/DL Calcium Level 8.8 MG/DL Sodium Level 138 MEQ/L Potassium Level 4.2 MEQ/L Chloride Level 107 MEQ/L Carbon Dioxide Level 21.4 MEQ/L Anion Gap 10 MEQ/L Estimat Glomerular Filtration Rate 30 ML/MIN Assessment and Plan Problem List: (1) Chest pain ICD Codes: R07.9 - Chest pain, unspecified Status: Acute (2) CAD (coronary artery disease) ICD Codes: I25.10 - Atherosclerotic heart disease of [place] coronary artery without angina pectoris Status: Chronic (3) ST segment changes on electrocardiogram ICD Codes: R94.31 - Abnormal electrocardiogram [ECG] [EKG] Status: Acute (4) Hypertension ICD Codes: I10 - Essential (primary) hypertension Status: Chronic (5) Anemia ICD Codes: D64.9 - Anemia, unspecified Status: Chronic (6) Morbid obesity with BMI of 45.0-49.9, adult ICD Codes: E66.01 - Morbid (severe) obesity due to excess calories; Z68.42 - Body mass index (BMI) 45.0-49.9, adult Status: Chronic (7) Anemia in chronic kidney disease ICD Codes: N18.9 - Chronic kidney disease, unspecified; D63.1 - Anemia in chronic kidney disease Status: Acute (8) Paraplegia ICD Codes: G82.20 - Paraplegia Status: Chronic Assessment and Plan 1) Hx CABG x2 both patent Overall mid LCX lesion and small PDA distally 2) CKD Gentle hydration 3) CAD with unstable angina with EKG changes MARCELLUS (3x15) to LCx Con't ASA/Plavix 4) Hgb with mild drop, most likely dilutional, but due to the late blood draw today, would plan to watch overnight and recheck tomorrow for stability Ricki Chung DO Nov 17, 2016 18:55
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
[2016-11-17] MEDS: ATORVASTATIN 40 MG TAB PO SCH (20:19)
[2016-11-17] MEDS: FLUOCINOLONE ACETONIDE 0.01% CR 15 GM TUBE TOPICAL SCH (20:20)
[2016-11-18] VITALS (18 sets, daily range): BP systolic 151–159; BP diastolic 85–95; PULSE 51–71; RESP 16–18; TEMP 98.5–98.6; O2SAT 96–97
[2016-11-18] MEDS: SODIUM CHLOR 0.9% 1000 ML INJ 1,000 ML IV SCH (01:40)
[2016-11-18] MEDS: HEPARIN SODIUM - SQ 10,000 UNITS/ML VIAL SQ SCH ×2 (02:06→08:28)
[2016-11-18 06:39] LABS: AUTOMATED NEUTROPHIL # 5.9 TH/MM3 (1.8-7.7); BASOPHIL % 0.4 % (0.0-2.0); EOSINOPHIL # 0.2 TH/MM3 (0-0.4); EOSINOPHIL % 2.2 % (0.0-4.0); HEMATOCRIT 26.1 % (39.0-51.0); HEMO FLAGS DIFF FINAL; LYMPH % 26.3 % (9.0-44.0); LYMPHOCYTE # 2.4 TH/MM3 (1.0-4.8); MEAN CELL VOLUME 85.9 FL (80.0-100.0); MEAN CORPUSCULAR HGB CONC 31.5 % (32.0-36.0); MONO % 7.3 % (0.0-8.0); NEUT % 63.8 % (16.0-70.0); PLATELET COUNT 189 TH/MM3 (150-450); RED BLOOD COUNT 3.04 MIL/MM3 (4.50-5.90); RED CELL DISTRIBUTION WIDTH 22.3 % (11.6-17.2); WHITE BLOOD COUNT 9.2 TH/MM3 (4.0-11.0)
[2016-11-18] MEDS: MULTIVITAMIN TAB PO SCH (08:26)
[2016-11-18] MEDS: DOCUSATE SODIUM 50 MG/SENNA 8.6 MG TAB PO SCH (08:26)
[2016-11-18] MEDS: METOPROLOL SUCCINATE 50 MG EXTENDED RELEASE TAB PO SCH (08:27)
[2016-11-18] MEDS: CALCITRIOL 0.25 MCG CAP PO SCH (08:27)
[2016-11-18] MEDS: ASPIRIN 81 MG CHEW TAB CHEW SCH (08:27)
[2016-11-18] MEDS: CYANOCOBALAMIN 1,000 MCG TAB PO SCH (08:27)
[2016-11-18] MEDS: ASCORBIC ACID 500 MG TAB PO SCH (08:27)
[2016-11-18] MEDS: hydrALAZINE HCL 100 MG TAB PO SCH ×2 (08:27→12:38)
[2016-11-18] MEDS: FERROUS SULFATE 325 MG (65 MG ELEMENTAL IRON) TAB PO SCH ×2 (08:27→12:38)
[2016-11-18] MEDS: FUROSEMIDE 20 MG TAB PO SCH (08:27)
[2016-11-18] MEDS: BACLOFEN 10 MG TAB PO SCH (08:27)
[2016-11-18] MEDS: CLOPIDOGREL 75 MG TAB PO SCH (08:28)
[2016-11-18] MEDS: amLODIPine BESYLATE 5 MG TAB PO SCH (08:28)
[2016-11-18] MEDS: POLYETHYLENE GLYCOL 17 GM PKG PO SCH (08:29)
[2016-11-18] MEDS: SODIUM CHLORIDE 0.9% FLUSH 10 ML FLUSH IV FLUSH SCH (08:29)
[2016-11-18] MEDS: COLLAGENASE OINT 30 GM TUBE TOPICAL SCH (08:30)
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
--- NOTE | 2016-11-18 14:39 | HHI.DCPOC ---
Discharge Care Plan Diagnosis: (1) Elevated troponin (2) Acute respiratory failure (3) NSTEMI (non-ST elevated myocardial infarction) (4) Stage II pressure ulcer of sacral region (5) Stage II pressure ulcer of right buttock (6) Acute on chronic kidney failure (7) Respiratory distress (8) Acute kidney injury (9) Chronic Medical Problems (10) Anemia (11) CAD (coronary artery disease) (12) Chest pain (13) Hypertension (14) Anemia in chronic kidney disease (15) Morbid obesity with BMI of 45.0-49.9, adult (16) Paraplegia (17) Osteomyelitis of ankle or foot, acute (18) CKD (chronic kidney disease), stage III (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 Avoid second hand smoke Call the 24-hour hour crisis hotline for domestic abuse at Amilcar Paz MD Nov 18, 2016 14:39
--- NOTE | 2016-11-18 17:19 | PD.CARD.PN ---
Subjective Subjective Remarks Patient seen this morning No complaints Doing well No chest pain/SOB Objective Medications Current Medications Sodium Chloride (NS Flush) 2 ml UNSCH PRN IV FLUSH FLUSH AFTER USING IV ACCESS ; Start 11/13/16 at 02:00; Stop 11/18/16 at 15:37; Status DC Sodium Chloride (NS Flush) 2 ml BID IV FLUSH Last administered on 11/18/16 08: 29; Start 11/13/16 at 09:00; Stop 11/18/16 at 15:37; Status DC Ondansetron HCl (Zofran Inj) 4 mg Q6H PRN IVP NAUSEA OR VOMITING; Start at 02:00; Stop 11/18/16 at 15:37; Status DC Naloxone HCl (Narcan Inj) 0.4 mg UNSCH PRN IV SEE LABEL COMMENTS; Start at 02:00; Stop 11/18/16 at 15:37; Status DC Sennosides (Senokot) 17.2 mg Q12H PRN PO MODERATE - SEVERE CONSTIPATION; Start 11/13/16 at 02:00; Stop 11/18/16 at 15:37; Status DC Bisacodyl (Dulcolax Supp) 10 mg DAILY PRN RECTAL SEVERE CONSITIPATION; Start at 02:00; Stop 11/18/16 at 15:37; Status DC Lactulose (Lactulose Liq) 30 ml DAILY PRN PO SEVERE CONSITIPATION; Start at 02:00; Stop 11/18/16 at 15:37; Status DC Oxycodone HCl (Roxicodone) 20 mg Q4H PRN PO pain 8-10 Last administered on 11/18 12:38; Start 11/13/16 at 02:15; Stop 11/18/16 at 15:37; Status DC Ferrous Sulfate (Ferrous Sulfate) 325 mg TID PO Last administered on 11/18/16 12:38; Start 11/13/16 at 09:00; Stop 11/18/16 at 15:37; Status DC Hydralazine HCl (Apresoline) 100 mg TID PO Last administered on 11/18/16 12:38 ; Start 11/13/16 at 09:00; Stop 11/18/16 at 15:37; Status DC Atorvastatin Calcium (Lipitor) 40 mg HS PO Last administered on 11/17/16 20:19 ; Start 11/13/16 at 21:00; Stop 11/18/16 at 15:37; Status DC Furosemide (Lasix) 20 mg BID@,18 PO Last administered on 11/18/16 08:27; Start 11/13/16 at 09:00; Stop 11/18/16 at 15:37; Status DC Fluocinolone Acetonide (Synalar 0.01% Cream) 1 applic HS TOPICAL Last administered on 11/15/16 21:16; Start 11/13/16 at 21:00; Stop 11/18/16 at 15:37 ; Status DC Senna/Docusate Sodium (Margarita-Colace) 1 tab BID PO Last administered on 08:26; Start 11/13/16 at 09:00; Stop 11/18/16 at 15:37; Status DC Collagenase (Santyl Oint) 1 applic DAILY TOPICAL Last administered on 08:47; Start 11/13/16 at 09:00; Stop 11/18/16 at 15:37; Status DC Polyethylene Glycol (Miralax) 17 gm DAILY PO ; Start 11/13/16 at 09:00; Stop at 15:37; Status DC Multivitamins (Theragran) 1 tab DAILY PO Last administered on 11/18/16 08:26; Start 11/13/16 at 09:00; Stop 11/18/16 at 15:37; Status DC Metoprolol Succinate (Toprol Xl) 50 mg DAILY PO Last administered on 11/18/16 08:27; Start 11/13/16 at 09:00; Stop 11/18/16 at 15:37; Status DC Cyanocobalamin (Vitamin B12) 1,000 mcg DAILY PO Last administered on 11/18/16 08:27; Start 11/13/16 at 09:00; Stop 11/18/16 at 15:37; Status DC Calcitriol (Rocaltrol) 0.5 mcg DAILY PO Last administered on 11/18/16 08:27; Start 11/13/16 at 09:00; Stop 11/18/16 at 15:37; Status DC Aspirin (Aspirin Chew) 81 mg DAILY CHEW Last administered on 11/18/16 08:27; Start 11/13/16 at 09:00; Stop 11/18/16 at 15:37; Status DC Ascorbic Acid (Vitamin C) 1,000 mg DAILY PO Last administered on 11/18/16 08: 27; Start 11/13/16 at 09:00; Stop 11/18/16 at 15:37; Status DC Baclofen (Lioresal) 10 mg BID PO Last administered on 11/18/16 08:; Start at 09:00; Stop 11/18/16 at 15:37; Status DC Heparin Sodium/ Dextrose 250 ml @ 0 mls/hr TITRATE IV Last administered on 11/13 12:01; Start 11/13/16 at 03:00; Stop 11/13/16 at 13:56; Status DC Diphenhydramine HCl (Benadryl Inj) 50 mg STK-MED ONCE .ROUTE ; Start 11/13/16 at 12:48; Stop 11/13/16 at 12:49; Status DC Methylprednisolone Sodium Succinate (SoluMEDROL INJ) 125 mg STK-MED ONCE .ROUTE ; Start 11/13/16 at 12:49; Stop 11/13/16 at 12:50; Status DC Midazolam HCl (Versed Inj) 2 mg STK-MED ONCE .ROUTE ; Start 11/13/16 at 13:05; Stop 11/13/16 at 13:06; Status DC Fentanyl Citrate (fentaNYL INJ) 100 mcg STK-MED ONCE .ROUTE ; Start 11/13/16 at 13:05; Stop 11/13/16 at 13:06; Status DC Miscellaneous Information 1 ONCE ONCE XX ; Start 11/13/16 at 13:45; Stop at 15:21; Status DC Atropine Sulfate (Atropine Inj) 0.5 mg UNSCH PRN IV VAGAL REPONSE; Start at 13:45; Stop 11/18/16 at 15:37; Status DC Sodium Chloride 250 ml @ 500 mls/hr ONCE PRN IV VAGAL REPONSE; Start 11/13/16 at 13:45; Stop 11/14/16 at 13:44; Status DC Sodium Chloride 1,000 ml @ 75 mls/hr [id number] IV Last administered on 01:40; Start 11/13/16 at 15:00; Stop 11/18/16 at 15:37; Status DC Amlodipine Besylate (Norvasc) 5 mg DAILY PO Last administered on 11/18/16 08: 28; Start 11/13/16 at 16:00; Stop 11/18/16 at 15:37; Status DC Iohexol (OMNIPAQUE 350 INJ (Skill Training Program Coordinator)) 50 ml STK-MED ONCE OTHER ; Start at 16:16; Stop 11/13/16 at 16:17; Status DC Enoxaparin Sodium (Lovenox Inj) 40 mg ONCE ONCE SQ Last administered on 18:39; Start 11/14/16 at 18:15; Stop 11/14/16 at 18:16; Status DC Clopidogrel Bisulfate (Plavix) 300 mg ONCE ONCE PO Last administered on 21:15; Start 11/15/16 at 20:15; Stop 11/15/16 at 20:33; Status DC Clopidogrel Bisulfate (Plavix) 75 mg DAILY PO Last administered on 11/18/16 08 :28; Start 11/16/16 at 09:00; Stop 11/18/16 at 15:37; Status DC Methylprednisolone Sodium Succinate (SoluMEDROL INJ) 125 mg ONCE ONCE IV PUSH Last administered on 11/16/16 10:00; Start 11/16/16 at 10:00; Stop 11/16/16 at 10:01; Status DC Famotidine (Pepcid Inj) 20 mg ONCE ONCE IV PUSH Last administered on 10:00; Start 11/16/16 at 10:00; Stop 11/16/16 at 10:01; Status DC Diphenhydramine HCl (Benadryl Inj) 25 mg ONCE ONCE IM Last administered on 10:00; Start 11/16/16 at 10:00; Stop 11/16/16 at 10:01; Status DC Midazolam HCl (Versed Inj) 2 mg STK-MED ONCE .ROUTE Last administered on 11:44; Start 11/16/16 at 11:44; Stop 11/16/16 at 11:45; Status DC Fentanyl Citrate (fentaNYL INJ) 100 mcg STK-MED ONCE .ROUTE Last administered on 11/16/16 11:45; Start 11/16/16 at 11:45; Stop 11/16/16 at 11:46; Status DC Verapamil HCl (Isoptin Inj) 5 mg STK-MED ONCE .ROUTE Last administered on 11:46; Start 11/16/16 at 11:46; Stop 11/16/16 at 11:47; Status DC Nitroglycerin 0 ml @ As Directed STK-MED ONCE .ROUTE Last administered on 11:46; Start 11/16/16 at 11:46; Stop 11/16/16 at 11:47; Status DC Heparin Sodium (Porcine) (Heparin Inj) 10,000 units STK-MED ONCE .ROUTE Last administered on 11/16/16 11:46; Start 11/16/16 at 11:46; Stop 11/16/16 at 11:47 ; Status DC Heparin Sodium/ Sodium Chloride 1,000 ml @ As Directed STK-MED ONCE .ROUTE Last administered on 11/16/16 11:46; Start 11/16/16 at 11:46; Stop 11/16/16 at 11:47; Status DC Verapamil HCl (Isoptin Inj) 5 mg STK-MED ONCE .ROUTE ; Start 11/16/16 at 13:05; Stop 11/16/16 at 13:06; Status DC Heparin Sodium (Porcine) (Heparin Inj) 10,000 units STK-MED ONCE .ROUTE ; Start 11/16/16 at 13:05; Stop 11/16/16 at 13:06; Status DC Nitroglycerin 5 ml @ As Directed STK-MED ONCE .ROUTE ; Start 11/16/16 at 13:05; Stop 11/16/16 at 13:06; Status DC Fentanyl Citrate (fentaNYL INJ) 100 mcg STK-MED ONCE .ROUTE ; Start 11/16/16 at 13:50; Stop 11/16/16 at 13:51; Status DC Sodium Chloride 1,000 ml @ 60 mls/hr [id number] IV Last administered on 18:30; Start 11/16/16 at 14:07; Stop 11/17/16 at 02:06; Status DC Heparin Sodium (Porcine) (Heparin Inj) 5,000 units Q8H SQ Last administered on 11/18/16t 08:28; Start 11/17/16 at 10:00; Stop 11/18/16 at 15:37; Status DC Iohexol (OMNIPAQUE 350 INJ (Skill Training Program Coordinator)) 100 ml STK-MED ONCE OTHER ; Start at 11:20; Stop 11/17/16 at 09:50; Status DC Vital Signs / I&O Vital Signs Date Time Temp Pulse Resp B/P (MAP) Pulse Ox O2 Delivery O2 Flow Rate FiO2 11/18/16 14:00 58 11/18/16 13:03 71 11/18/16 12:00 58 11/18/16 11:29 98.6 57 18 151/86 (107) 97 11/18/16 11:00 63 11/18/16 10:00 60 11/18/16 09:00 70 11/18/16 08:00 60 11/18/16 07:50 98.5 57 16 153/85 (107) 96 11/18/16 07:00 53 11/18/16 06:00 60 11/18/16 05:00 58 11/18/16 04:00 59 11/18/16 03:03 98.6 61 18 159/95 (116) 97 11/18/16 03:00 59 11/18/16 02:00 68 11/18/16 01:00 51 11/18/16 00:00 70 11/17/16 23:00 98.6 59 18 136/81 (99) 98 11/17/16 23:00 59 11/17/16 22:00 62 11/17/16 21:00 60 11/17/16 20:00 98.7 67 18 127/79 (95) 96 11/17/16 20:00 67 11/17/16 19:00 68 11/17/16 18:28 18 11/17/16 18:01 58 11/17/16 17:41 67 I/O 11/17/16 11/17/16 11/17/16 11/18/16 11/18/16 11/18/16 07:00 15:00 23:00 07:00 15:00 23:00 Intake Total 1784 ml 861 ml 3902 ml Output Total 3000 ml 2400 ml 3850 ml Balance -1216 ml -1539 ml 52 ml Intake Oral 1100 ml 240 ml 2160 ml IV Total 684 ml 621 ml 1742 ml Output Urine Total 2400 ml 2350 ml 3850 ml Stool Total 600 ml 50 ml Physical Exam GENERAL: NAD, AAOx3 SKIN: Warm and dry. HEAD: Atraumatic. Normocephalic. EYES: Pupils equal and round. No scleral icterus. No injection or drainage. ENT: No nasal bleeding or discharge. Mucous membranes pink and moist. NECK: Trachea midline. No JVD. CARDIOVASCULAR: Regular rate and rhythm. RESPIRATORY: No accessory muscle use. Clear to auscultation. Breath sounds equal bilaterally. GASTROINTESTINAL: Abdomen soft, non-tender, nondistended. Hepatic and splenic margins not palpable. MUSCULOSKELETAL: Changes due to venous status bilaterally. Right femoral no hematoma/bruit NEUROLOGICAL: Awake and alert. Paraplegic PSYCHIATRIC: Appropriate mood and affect; insight and judgment normal. Laboratory Laboratory Tests Test 11/18/16 06:08 White Blood Count 9.2 TH/MM3 Red Blood Count 3.04 MIL/MM3 Hemoglobin 8.2 GM/DL Hematocrit 26.1 % Mean Corpuscular Volume 85.9 FL Mean Corpuscular Hemoglobin 27.0 PG Mean Corpuscular Hemoglobin Concent 31.5 % Red Cell Distribution Width 22.3 % Platelet Count 189 TH/MM3 Mean Platelet Volume 7.9 FL Neutrophils (%) (Auto) 63.8 % Lymphocytes (%) (Auto) 26.3 % Monocytes (%) (Auto) 7.3 % Eosinophils (%) (Auto) 2.2 % Basophils (%) (Auto) 0.4 % Neutrophils # (Auto) 5.9 TH/MM3 Lymphocytes # (Auto) 2.4 TH/MM3 Monocytes # (Auto) 0.7 TH/MM3 Eosinophils # (Auto) 0.2 TH/MM3 Basophils # (Auto) 0.0 TH/MM3 CBC Comment DIFF FINAL Differential Comment Assessment and Plan Problem List: (1) Chest pain ICD Codes: R07.9 - Chest pain, unspecified Status: Acute (2) CAD (coronary artery disease) ICD Codes: I25.10 - Atherosclerotic heart disease of gal[place] coronary artery without angina pectoris Status: Chronic (3) ST segment changes on electrocardiogram ICD Codes: R94.31 - Abnormal electrocardiogram [ECG] [EKG] Status: Acute (4) Hypertension ICD Codes: I10 - Essential (primary) hypertension Status: Chronic (5) Anemia ICD Codes: D64.9 - Anemia, unspecified Status: Chronic (6) Morbid obesity with BMI of 45.0-49.9, adult ICD Codes: E66.01 - Morbid (severe) obesity due to excess calories; Z68.42 - Body mass index (BMI) 45.0-49.9, adult Status: Chronic (7) Anemia in chronic kidney disease ICD Codes: N18.9 - Chronic kidney disease, unspecified; D63.1 - Anemia in chronic kidney disease Status: Acute (8) Paraplegia ICD Codes: G82.20 - Paraplegia Status: Chronic Assessment and Plan 1) Hx CABG x2 both patent Overall mid LCX lesion and small PDA distally 2) CKD Stable 3) CAD with unstable angina with EKG changes MARCELLUS (3x15) to LCx Con't ASA/Plavix 4) Hgb stable 5) Cardiovascularly stable to return to rehab Ricki Chung DO Nov 18, 2016 17:19
[2016-11-24] MEDS ORDERED: [UNRECOGNIZED DRUG - SUPPLY] (15:53)
[2016-11-24] MEDS ORDERED: HOSP BED1 (15:53)
[2016-12-01] MEDS ORDERED: VANC500I3 PO (16:11)
[2016-12-01] MEDS ORDERED: ATOR40TA16 PO (16:11)
[2016-12-01] MEDS ORDERED: PANT40TA3 PO (16:11)
[2016-12-01] MEDS ORDERED: VITA500T2 PO (16:11)
[2016-12-01] MEDS ORDERED: LACT PO (16:11)
[2016-12-01] MEDS ORDERED: VITA10002 PO (16:11)
[2016-12-01] MEDS ORDERED: FERR325T20 PO (16:11)
[2016-12-01] MEDS ORDERED: CALC.25 PO (16:11)
[2016-12-01] MEDS ORDERED: ASPI-99 PO (16:11)
[2016-12-01] MEDS ORDERED: Simethicone Chew CHEW (16:11)
[2016-12-01] MEDS ORDERED: PLAV75TA29 PO (16:11)
[2016-12-01] MEDS ORDERED: SODI650T PO (16:11)
[2016-12-01] MEDS ORDERED: ONDA4INJ2 IV PUSH (16:11)
[2016-12-01] MEDS ORDERED: THERTAB15 PO (16:11)
[2016-12-01] MEDS ORDERED: IMIP250I IV (16:21)
== END 2016-11-18 15:36 | DRG 247 ==
LOC: N05B 23:55 → HCIS 11-16 12:32
PROVIDERS: ADMIT Hospitalist; ATTEND Hospitalist
PROC: 4A023N7 Measurement of Cardiac Sampling and Pressure, Left Heart, Percutaneous Approach (ICD-10-PCS; 2016-11-13)
PROC: B2111ZZ Fluoroscopy of Multiple Coronary Arteries using Low Osmolar Contrast (ICD-10-PCS; 2016-11-13)
PROC: B2131ZZ Fluoroscopy of Multiple Coronary Artery Bypass Grafts using Low Osmolar Contrast (ICD-10-PCS; 2016-11-13)
PROC: B2181ZZ Fluoroscopy of Left Internal Mammary Bypass Graft using Low Osmolar Contrast (ICD-10-PCS; 2016-11-13)
PROC: B2111ZZ Fluoroscopy of Multiple Coronary Arteries using Low Osmolar Contrast (ICD-10-PCS; 2016-11-16)
PROC: 027034Z Dilation of Coronary Artery, One Artery with Drug-eluting Intraluminal Device, Percutaneous Approach (ICD-10-PCS; principal; 2016-11-16 11:45)
DX: I25.110 Atherosclerotic heart disease of native coronary artery with unstable angina pectoris (principal); L89.152 Pressure ulcer of sacral region, stage 2; G82.20 Paraplegia, unspecified; L89.312 Pressure ulcer of right buttock, stage 2; N17.9 Acute kidney failure, unspecified; N18.3 Chronic kidney disease, stage 3 (moderate); N13.30 Unspecified hydronephrosis; S24.104S Unspecified injury at T11-T12 level of thoracic spinal cord, sequela; Z68.42 Body mass index [BMI] 45.0-49.9, adult; M19.90 Unspecified osteoarthritis, unspecified site; D63.1 Anemia in chronic kidney disease; E78.5 Hyperlipidemia, unspecified; G89.29 Other chronic pain; I12.9 Hypertensive chronic kidney disease with stage 1 through stage 4 chronic kidney disease, or unspecified chronic kidney disease; E66.01 Morbid (severe) obesity due to excess calories; L89.629 Pressure ulcer of left heel, unspecified stage; I25.2 Old myocardial infarction; Z90.5 Acquired absence of kidney; Z95.1 Presence of aortocoronary bypass graft; Z95.5 Presence of coronary angioplasty implant and graft; V49.9XXS Car occupant (driver) (passenger) injured in unspecified traffic accident, sequela; Z93.3 Colostomy status; Z99.3 Dependence on wheelchair; Z86.14 Personal history of Methicillin resistant Staphylococcus aureus infection
CPT/HCPCS: 76937; 80048; 85002; 85007; 85025; 85027; 85610; 85730; 92928; 93005; 93454; 94667; C1725; C1769; C1874; C1887; C1893; J1200; J1644; J1650; J2250; J2930; J3010; J7030; Q9967

== ENCOUNTER 2016-12-01 17:39 | Inpatient (IN) | payer MEDICARE, OTHER ==
[~2016-12-01] VITALS: Ht 165.1 cm; Wt 110.0 kg
[~2016-12-01 17:39] MED LIST changes: +AMLO5 PO; -AMLO5TAB2 PO; +ASPI-99 PO; -AUGM500T7 PO; +BACL10TA PO; -DESO0.0560 TOPICAL; -DOCU100C PO; +FERR325T20 PO; +HOSP BED1; -HYDRO.5%T TOPICAL; +IMIP250I IV; +LACT PO; -LIDO5DIS5 T-DERMAL; +ONDA4INJ2 IV PUSH; +OXYC-392 PO; -OXYC30TA PO; +PANT40TA3 PO; +PLAV75TA29 PO; -SENN1TAB PO; -SIME40DR PO; +SODI650T PO; +THERTAB15 PO; +VANC500I3 PO; +VITA500T2 PO; -ZOFR4TAB3 SL; -ZYVO600T PO; +[UNRECOGNIZED DRUG - SUPPLY]
[2016-12-01] MEDS ORDERED: ONDANSETRON HCL 4 MG/2 ML VIAL IVP PRN (19:30)
[2016-12-01] MEDS ORDERED: ACETAMINOPHEN 325 MG TAB PO PRN (19:30)
[2016-12-01] MEDS ORDERED: SODIUM CHLORIDE 0.9% FLUSH 10 ML FLUSH IV FLUSH PRN (19:30)
[2016-12-01] MEDS ORDERED: SENNOSIDES 8.6 MG TAB PO PRN (19:30)
[2016-12-01] MEDS ORDERED: NALOXONE HCL 0.4 MG/ML AMP IV PRN (19:30)
[2016-12-01] MEDS ORDERED: MENTHOL/METHYL SALICYLATE OINT 30 GM TUBE TOPICAL PRN (19:45)
[2016-12-01] MEDS ORDERED: SIMETHICONE 80 MG CHEWABLE TAB CHEW PRN (19:45)
[2016-12-01 20:59] VITALS: BP 95/51; PULSE 66; RESP 19; TEMP 97.2; O2SAT 93
[2016-12-01] MEDS ORDERED: BACLOFEN 10 MG TAB PO SCH (21:00)
[2016-12-01] MEDS ORDERED: IMIPENEM/CILASTATIN INJ 500 MG VIAL IV SCH (21:00)
[2016-12-01] MEDS: SODIUM CHLORIDE 0.9% FLUSH 10 ML FLUSH IV FLUSH SCH (21:00)
[2016-12-01] MEDS: NYSTATIN 100,000 UNIT/GM CREAM 15 GM TOPICAL SCH ×2 (21:11→22:47)
[2016-12-01] MEDS: VANCOMYCIN 500 MG VIAL (FOR ORAL USE ONLY) PO SCH (21:15)
[2016-12-01] MEDS: hydrALAZINE HCL 100 MG TAB PO SCH (21:15)
[2016-12-01] MEDS: HEPARIN SODIUM - SQ 10,000 UNITS/ML VIAL SQ SCH (21:15)
[2016-12-01] MEDS: ATORVASTATIN 40 MG TAB PO SCH (21:16)
[2016-12-01] MEDS: SODIUM BICARBONATE 8.4% INJ 75 MEQ in SODIUM CHLOR 0.9% 1000 ML INJ 1,000 ML IV SCH (22:47)
[2016-12-01] MEDS ORDERED: IMIPENEM IV SCH ×2 (23:00)
[2016-12-01] MEDS ORDERED: CILASTATIN IV SCH ×2 (23:00)
[2016-12-01] MEDS ORDERED: NS IV SCH ×2 (23:00)
[2016-12-02] VITALS (15 sets, daily range): BP systolic 91–134; BP diastolic 40–73; PULSE 59–79; RESP 12–20; TEMP 96.2–98.1; O2SAT 95–97
[2016-12-02] MEDS: HEPARIN SODIUM - SQ 10,000 UNITS/ML VIAL SQ SCH ×3 (06:15→21:09)
[2016-12-02] MEDS: SODIUM BICARBONATE 8.4% INJ 75 MEQ in SODIUM CHLOR 0.9% 1000 ML INJ 1,000 ML IV SCH ×2 (06:36→16:36)
--- NOTE | 2016-12-02 07:24 | HHI.PR ---
Addendum to Inpatient Note Addendum Reason: Additional Documentation Additional Information S: Resident team received call from call sooner regarding Ronal in 713. Received call 6:42 AM. Resident team arrived to find Ronal nurse and respiratory therapy at bedside. Ronal was called for bilateral upper extremity heaviness. Patient was recently transferred from [facility] where he was doing upper extremity exercises including hand bike and weight lifting. Per nurse report, patient has been sleeping soundly all night. He complained of this when she woke him up to take vital signs. Patient denies any chest pain or shortness of breath. He denies any stroke symptoms including facial droop, unilateral weakness, slurred speech. He does complain of some pain at his left neck. He is falling asleep as I'm asking questions and during my physical exam. O: Vital Signs Date Time Temp Pulse Resp B/P (MAP) Pulse Ox O2 Delivery O2 Flow Rate FiO2 12/02/16 06:51 96.5 70 20 124/67 (86) 97 Gen.: Obese paraplegic lying in bed, in and out of sleep HEENT: 5-6 mm pupils equal round reactive to light. Moist mucous membranes Respiratory: No increased work of breathing Cardiovascular: Extremities warm and well perfused Neurological: Patient is falling asleep during my neurological exam. He reports equal sensation in his upper extremities bilaterally. He is unable to lift his arms off the bed bilaterally. A/P: 61-year-old man with paraplegia below the level of T12, C. difficile, renal failure, recent transfer from [facility] had Ronal called for bilateral upper extremity heaviness while in and out of sleep and in the context of recent exercise. Stayed with patient until Dr. Gross at bedside. -Spoke to patient's friend and health care surrogate who is on his way from [place]. Patient seen and discussed with Abner George MD R2 Dec 02, 2016 07:24
--- NOTE | 2016-12-02 07:33 | HHI.PR ---
Addendum to Inpatient Note Addendum Reason: Additional Documentation Additional Information Rapid response was called on this patient at around 6:45 AM. As per nursing staff, patient was complaining of bilateral upper extremity weakness as he woke up from sleep. This was the reason why the rapid response was called. Came to see patient at the bedside. Chart reviewed. Patient complains of bilateral upper extremity weakness which she woke up from. He stated that he was sleeping all night long and the nurse woke him up for morning vitals and he was quite startled. He stated when he felt this, he also started feeling weakness on his bilateral upper extremities. Denies any numbness or tingling. Next and denies pain. Patient is paraplegic T12 down. However reports that he has been participating in physical therapy at the rehabilitation center up until yesterday. He stated they would usually get him up on the wheelchair, and he would like to exercise his hands with hand bike and he would do pretty well and strong. He has not had any falls since arrival to medical floors. He did not complain about any neck pains or rigidity. On exam, patient is awake, alert, oriented. However somewhat drowsy and falls back asleep. Nurse also reported that this has been the case during the night. He is morbidly obese. He was placed on 3 L nasal cannular during the rapid response time per nursing staff. He was saturating 95-96% on room air prior to this rapid response. On your exam, patient is equal bilateral upper extremity strength which he is able to resist gravity. Impression: Bilateral upper extremity weakness- likely secondary to sleep paralysis/being startled during sleep. Suspect underlying sleep apnea. Suspect mild drowsiness- secondary to patient with renal failure, sleep apnea receiving sedatives. He was on scheduled dose of baclofen and did receive 1 dose during the night. Severe metabolic acidosis Renal failure- with refractory metabolic acidosis which needs dialysis. Plan: Discontinue baclofen. Discontinue oxycodone. Would discontinue oxygen for now as patient was not requiring at review see. This patient would benefit from C Pap/BiPAP. As to his severe metabolic acidosis with renal failure, nephrology has been managing patient. Morning labs stat. 2 follow-up potassium levels and electrolytes abnormalities to explain his bilateral upper extremity weakness. Doubt this would be the case though. Patient will be evaluated by his morning team. Sign out is given to his morning PA regarding the overnight events.. Alex Gross MD Dec 02, 2016 07:33
[2016-12-02 08:02] LABS: BLOOD GAS BASE EXCESS -17.4 mmol/L (-2-2); BLOOD GAS CARBOXYHEMOGLOBIN 1.7 % (0-4); BLOOD GAS HCO3 11 mmol/L (22-26); BLOOD GAS METHEMOGLOBIN 1.2 % (0-2); BLOOD GAS O2 HGB SATURATION 91 % (90-100); BLOOD GAS OXYGEN CONTENT 13.7 Vol % (12.0-20.0); BLOOD GAS PCO2 37 mmHg (38-42); BLOOD GAS PO2 83 mmHg (61-120); BLOOD GAS TOTAL HGB 10.6 G/DL (12.0-16.0); TEMP CORR TO 98.6
[2016-12-02 08:03] LABS: CRITICAL VALUE YES; DRAW SITE LT RADIAL; FIO2 21 %; NUMBER OF ARTERIAL PUNCTURES 1; STAT YES; ULNAR PULSE PRESENT
[2016-12-02] MEDS: METOPROLOL SUCCINATE 50 MG EXTENDED RELEASE TAB PO SCH (08:45)
[2016-12-02] MEDS: ASPIRIN EC 81 MG TABEC PO SCH (08:45)
[2016-12-02] MEDS: LACTOBACILLUS ACIDOPHILUS TAB PO SCH ×3 (08:45→17:48)
[2016-12-02] MEDS: CYANOCOBALAMIN 1,000 MCG TAB PO SCH (08:45)
[2016-12-02] MEDS: CLOPIDOGREL 75 MG TAB PO SCH (08:46)
[2016-12-02] MEDS: ASCORBIC ACID 500 MG TAB PO SCH (08:46)
[2016-12-02] MEDS: amLODIPine BESYLATE 5 MG TAB PO SCH (08:46)
[2016-12-02] MEDS: FUROSEMIDE 20 MG TAB PO SCH (08:46)
[2016-12-02] MEDS: hydrALAZINE HCL 100 MG TAB PO SCH ×2 (08:46→20:42)
[2016-12-02] MEDS: FERROUS SULFATE 325 MG (65 MG ELEMENTAL IRON) TAB PO SCH ×3 (08:47→17:48)
[2016-12-02] MEDS: PANTOPRAZOLE SOD 40 MG DELAYED RELEASE TAB PO SCH (08:51)
[2016-12-02] MEDS: MULTIVITAMIN TAB PO SCH (08:51)
[2016-12-02] MEDS: VANCOMYCIN 500 MG VIAL (FOR ORAL USE ONLY) PO SCH ×4 (08:52→20:42)
[2016-12-02] MEDS: NYSTATIN 100,000 UNIT/GM CREAM 15 GM TOPICAL SCH ×2 (08:53→20:42)
[2016-12-02] MEDS: SODIUM CHLORIDE 0.9% FLUSH 10 ML FLUSH IV FLUSH SCH ×2 (08:53→20:16)
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
[2016-12-02 11:06] LABS: AUTOMATED NEUTROPHIL # 8.3 TH/MM3 (1.8-7.7); BASOPHIL # 0.1 TH/MM3 (0-0.2); BASOPHIL % 0.9 % (0.0-2.0); EOSINOPHIL # 0.1 TH/MM3 (0-0.4); HEMATOCRIT 27.9 % (39.0-51.0); HEMO FLAGS DIFF FINAL; LYMPH % 11.9 % (9.0-44.0); LYMPHOCYTE # 1.2 TH/MM3 (1.0-4.8); MEAN CELL VOLUME 85.5 FL (80.0-100.0); MEAN CORPUSCULAR HEMOGLOBIN 27.7 PG (27.0-34.0); MEAN CORPUSCULAR HGB CONC 32.4 % (32.0-36.0); MONO % 5.3 % (0.0-8.0); NEUT % 80.9 % (16.0-70.0); PLATELET COUNT 229 TH/MM3 (150-450); RED BLOOD COUNT 3.26 MIL/MM3 (4.50-5.90); RED CELL DISTRIBUTION WIDTH 19.5 % (11.6-17.2); WHITE BLOOD COUNT 10.2 TH/MM3 (4.0-11.0)
[2016-12-02 11:10] LABS: RETIC % 3.3 % (0.4-3.0); REVIEW FLAG FINAL
[2016-12-02 11:22] LABS: ALT (GPT) 13 U/L (12-78); ANION GAP 10 MEQ/L (5-15); AST (GOT) 13 U/L (15-37); BICARBONATE 11.5 MEQ/L (21.0-32.0); CHLORIDE 112 MEQ/L (98-107); GLOMERULAR FILTRATION RATE 8 ML/MIN (>89); POTASSIUM 3.7 MEQ/L (3.5-5.1); SODIUM (NA) 133 MEQ/L (136-145)
[2016-12-02 11:24] LABS: ALKALINE PHOSPHATASE 142 U/L (45-117); TOTAL BILIRUBIN ADULT 0.3 MG/DL (0.2-1.0)
[2016-12-02 11:26] LABS: BLOOD UREA NITROGEN 54 MG/DL (7-18)
--- NOTE | 2016-12-02 11:47 | MB ---
cc: GANESH SCHWARTZ MD DATE OF CONSULTATION: 12/01/2016 REASON FOR CONSULTATION: 1. Solitary right kidney. 2. Mild right hydronephrosis with renal failure. 3. History of cystectomy with neobladder and left nephrectomy. HISTORY: This patient is a 61-year-old male with history of spina bifida who underwent a cystectomy with ileal conduit back in 1992 with subsequent revision to a neobladder, as well as the history of a chronic kidney disease. Patient was recently admitted to [facility] for rehabilitation. The surgery back in September had the creatinine as high as up to 6.3 but improved down to 2.2, he had a CT of the abdomen and pelvis without contrast at that time which showed mild right hydronephrosis on the right was solitary right kidney but non distended neobladder. While at [facility] he was found have a gradually increasing creatinine now up to 5.0. His diagnosis is C-difficile colitis and UTI's and has been on vancomycin. The patient states he has noticed over the last couple weeks a decrease urine output while doing urinary catheterization every four hours but still seems to be giving 300 ml urine. He also complains of nausea and vomiting, denies fevers and chills. He had a renal ultrasound performed which showed mild right hydronephrosis with a proximal hydroureter but did not show any fluid in the neobladder. Urology was consulted for possible obstructive uropathy. The patient has a history of kidney stones but does have frequent urinary tract infections. He currently denies any right flank pain or abdominal pain at this time he feels that something is wrong with catheter itself to decrease urine output. PAST HISTORY 1. Significant for hypertension, 2. chronic kidney disease with solitary right kidney, hyperlipidemia, 3. paraplegia, 4. neurogenic bladder. 5. Spina bifida 6. Chronic anemia. 7. osteoarthritis. 8. Ischemic heart disease. PAST SURGICAL HISTORY: 1. Status post cystectomy with neobladder formation 2. Tonsillectomy 3. Cholecystectomy 4. coronary artery with past grafting. 5. Cervical spine surgery REVIEW OF SYSTEMS See HPI otherwise all the review of systems otherwise negative. SOCIAL HISTORY Denies smoking, illicit drugs or alcohol use. FAMILY HISTORY Denies genitourinary malignancies or nephrolithiasis. ALLERGIES CHLORPROETHAZINE IOHEXINOL IODIXANOL MEDICATIONS His medications include 1. Baclofen. 2. Aspirin. 3. Plavix. 4. Protonix. 5. Lipitor. 6. Imipenem 7. Vancomycin 8. Ferrous sulfate PHYSICAL EXAMINATION: VITAL SIGNS: Temperature 98, pulse 80, respiratory, BP 157, 96 cm IN GENERAL: He is alert and oriented x3. No apparent distress pleasant cooperative, appears stated age. HEAD, EYES, EARS, NOSE, AND THROAT: Head is normocephalic, atraumatic. LUNGS: The lungs are clear to auscultation. No wheezes, rales or rhonchi. SKIN: [place] and moist. No ulcers or rashes. HEAD, EYES, EARS, NOSE, AND THROAT: No scleral icterus. Extraocular muscles intact. HEART: Regular rhythm. No murmurs, gallops, rubs. ABDOMEN: Obese but soft, nontender, nondistended. Positive bowel sounds. With stoma in his right lower quadrant. GENITOURINARY: His penis is circumcised, it is of normal size consistency. EXTREMITIES: Nontender. PSYCHIATRIC: Flat affect. NEUROLOGIC: Cranial nerves II through XII intact. Strength 4/5 in upper extremities 1/5 lower extremities due to paraplegia. LABORATORY FINDINGS: Labs show white count 12.3, hemoglobin 8.5 hematocrit 20.0, platelet count 237, sodium 133, potassium <<4:19>> chloride 135, bicarb 11.7, BUN 50, creatinine 6.47. Urine shows trace blood, 100, <<4:28>> . IMAGING STUDIES Renal ultrasound images reviewed with radiologist's report the patient has mild right hydroureter nephrosis with no evidence any fluid seen in his pouch or neobladder. ASSESSMENT AND PLAN: The patient is a 61-year-old male with history of spinda bifida with neurogenic bladder status post cystectomy with neobladder formation, who presents with acute on chronic kidney disease, nausea without vomiting. Decreased urine output. PLAN: In reviewing his CT scan from previous admission and his recent ultrasound I suspect the obstruction is from a possible ureteral stricture, versus reflux nephropathy however due to his progression of his renal disease, I suspect he may have underlying obstruction going on despite the lack of flank pain. We will obtain a CT of abdomen and pelvis without contrast to obtain a better picture of his anatomy. However, I suspect that this is more of a obstructive process were the ureter enters the bladder then from passing the catheter and draining his neobladder. He likely will need a nephrostomy tube at some point and he could have a revision of his neobladder done at a tertiary center. I thank you for this consultation, we will follow him with you. MD NNAMDI Davalos/azar /1:40 PM /11:37 AM
[2016-12-02] MEDS: IMIPENEM/CILASTATIN INJ 250 MG in SODIUM CHLORIDE 0.9% INJ 100 ML IV SCH (11:53)
--- NOTE | 2016-12-02 13:35 | RADRPT ---
EXAM DATE/TIME: 12/02/2016 12:09 [place] COMPARISON: No previous studies available for comparison. INDICATIONS : Syncope. MEDICAL HISTORY : Myocardial infarction. Hypercholesterolemia. Hypertension. CAD. Hyperlipidemia. Sleep apnea. Renal fa ilure. UTI. Anemia. C-diff. MRSA. Osteoarthritis. SURGICAL HISTORY : Tonsillectomy. CABG. Coronary artery stent. Cardiac cath. Appendectomy. Cholecystectomy. Left nephrec debbi. ENCOUNTER: Initial ACUITY: 1 day PAIN SCORE: 2/10 LOCATION: Bilateral neck PEAK SYSTOLIC VELOCITIES (cm/sec): ICA/CCA RATIO: Right: 1.1 Left: 1.3 ICA: Right: 153 Left: 175 CCA: Right: 139 Left: 139 ECA: Right: 187 Left: 167 VERTEBRAL: Right: 57 antegrade Left: 69 antegrade Elevated flow velocities and ICA/CCA ratios have been found to correlate with increased degrees of vessel stenosis, calculated as percentage of diameter relative to a normal segment of distal ICA/CCA FINDINGS: RIGHT CAROTID: No significant stenosis is visualized. The waveforms are within normal limits. LEFT CAROTID: No significant stenosis is visualized. The waveforms are within normal limits. VERTEBRAL ARTERIES: Antegrade flow is seen in both vertebral arteries. CONCLUSION: Normal hemodynamic profile both carotids, characteristic of less than 50% stenosis. Nikita Aguilar MD on December 02, 2016 at 13:32 Board Certified Radiologist. This report was verified electronically.
[2016-12-02] MEDS: CALCITRIOL 0.25 MCG CAP PO SCH (14:13)
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
--- NOTE | 2016-12-02 14:59 | EKG ---
Date Performed: 12/02/2016 Time Performed: 06:48:18 PTAGE: 61 years EKG: Sinus rhythm . Extensive ST-T changes are nonspecific Borderline ECG PREVIOUS TRACING : 11/17/2016 06.01 T-wave inversions are not as pronounced as in the prior tra cing. DOCTOR: Hitesh Escalante Interpretating Date/Time 12/02/2016 14:58:28
--- NOTE | 2016-12-02 15:37 | ECHRPT ---
Indication: CHF CONCLUSIONS The left ventricular systolic function is low normal with an estimated ejection fraction in the rang e of 50- 55%. Normal left ventricular size. Wall thickness is normal. No regional wall motion abnormalities are present. Mild aortic valve stenosis. Aortic valve area is 2.2 cm. Aortic valve mean gradient is 14 mmHg. There is trace tricuspid valve regurgitation. The estimated pulmonary arterial pressure is 65 mmHg. The pulmonary valve is not well visualized. Dilated inferior vena cava with poor inspiration collapse consistent with elevated right atrial pres sure. BP: 115 / 49 HR: 70 Rhythm: Sinus MEASUREMENTS (Male / Female) Normal Values Technical Quality:Very technically difficult study 2D ECHO LVOT Diameter 2.0 cm M-MODE LV Diastolic Diameter MM 6.8 cm 4.2 - 5.9 / 3.9 - 5.3 cm LV Systolic Diameter MM 4.8 cm LV Ejection Fraction MM Teich 55.5 % LV Cardiac Index MM Teich 3929.7 cm/minm IVS Diastolic Thickness MM 1.2 cm 0.6 - 1.0 / 0.6 - 0.9 cm LVPW Diastolic Thickness MM 1.2 cm 0.6 - 1.0 / 0.6 - 0.9 cm LV Relative Wall Thickness MM 0.3 0.24 - 0.42 / 0.22 - 0.42 LV Mass Index MM 160.3 g/m 49 - 115 / 43 - 95 g/m Aortic Root Diameter MM 3.2 cm AV Cusp Separation MM 2.0 cm DOPPLER AV Peak Velocity 261.5 cm/s AV Peak Gradient 27.4 mmHg AV Mean Gradient 14.0 mmHg AV Velocity Time Integral 47.3 cm LVOT Peak Velocity 190.5 cm/s LVOT Peak Gradient 14.5 mmHg LVOT Velocity Time Integral 32.7 cm LVOT Cardiac Index 3010.1 cm/minm AV Area Cont Eq vti 2.2 cm AV Area Cont Eq pk 2.3 cm MV Area PHT 3.1 cm Mitral E Point Velocity 155.0 cm/s Mitral A Point Velocity 126.0 cm/s Mitral E to A Ratio 1.2 TR Peak Velocity 372.0 cm/s TR Peak Gradient 55.4 mmHg PV Peak Velocity 109.0 cm/s PV Peak Gradient 4.8 mmHg FINDINGS LEFT VENTRICLE The left ventricular systolic function is low normal with an estimated ejection fraction in the rang e of 50- 55%. Normal left ventricular size. Wall thickness is normal. No regional wall motion abnormalities are present. RIGHT VENTRICLE Normal right ventricular size and systolic function. LEFT ATRIUM The left atrial size is normal. RIGHT ATRIUM The right atrial size is normal. ATRIAL SEPTUM Normal atrial septal thickness without atrial level shunting by limited color doppler interrogation. AORTA The aortic root and proximal ascending aorta are normal in size on limited imaging. MITRAL VALVE Structurally normal mitral valve. No mitral valve stenosis or regurgitation. AORTIC VALVE Mild aortic valve stenosis. Aortic valve area is 2.2 cm. Aortic valve mean gradient is 14 mmHg. TRICUSPID VALVE There is trace tricuspid valve regurgitation. The estimated pulmonary arterial pressure is 65 mmHg. PULMONARY VALVE The pulmonary valve is not well visualized. VESSELS Dilated inferior vena cava with poor inspiration collapse consistent with elevated right atrial pres sure. PERICARDIUM No pericardial effusion. Yogi Krause MD (Electronically Signed) Final Date:02 December 2016 15:36
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
--- NOTE | 2016-12-02 19:43 | HHI.NPPN ---
Subjective History of Present Illness 61-year-old male known to me from before with past medical history of chronic kidney disease and single kidney, history of peripheral vascular disease, hypertension, hyperlipidemia, partial small-bowel obstruction, history of paraplegia, history of neobladder formation with neurogenic bladder, who was admitted at [facility] for rehabilitation. I saw the patient when he was admitted in September and at that time he had creatinine as high as 6.3 and it improved to around 2.2 to 2.4 and it has been gradually going up. Additional Remarks Patient is alert, no SOB, not eating well, feeling weak and tired. Review of Systems General Constitutional: Fatigue Respiratory Lungs: SOB Cardiovascular Cardiac: Edema, BAEZ Objective Data Data 12/02/16 12/03/16 19:00 07:00 Intake Total 1080 ml Output Total 100 ml Balance 980 ml Intake Oral 10 ml IV Total 1070 ml Output Stool Total 100 ml Vital Signs Date Time Temp Pulse Resp B/P (MAP) Pulse Ox O2 Delivery O2 Flow Rate FiO2 12/02/16 18:00 76 12/02/16 16:00 97.9 61 110/53 (72) 96 12/02/16 16:00 61 12/02/16 14:30 68 117/60 (79) 12/02/16 13:30 70 121/53 (75) 12/02/16 12:30 61 102/53 (69) 12/02/16 11:50 97.2 70 20 115/49 (71) 95 12/02/16 07:30 96.3 60 16 91/46 (61) 95 12/02/16 07:11 96.5 68 16 109/40 (63) 12/02/16 06:51 96.5 70 20 124/67 (86) 97 12/02/16 06:45 74 18 118/60 (79) 12/02/16 06:20 4.00 95 12/02/16 05:00 96.2 79 18 113/73 (86) 96 12/02/16 04:03 61 12/02/16 00:59 97.6 59 19 108/55 (72) 95 12/01/16 20:59 97.2 66 19 95/51 (66) 93 -: 12/02/16 1005 12/02/16 1005 Physical Exam General Appearance: Well Nourished, No Acute Distress, Comfortable Eyes Eye Exam: Pupils Equal Throat Throat Exam: Oral Mucosa Rosanky & Moist Pulmonary Resp Exam: No Distress, Rhonchi, Decreased Bases, Diminished Breath Sounds Cardiology CV Exam: Regular Gastrointestinal/Abdomen GI Exam: Soft, Non-Tender, Distended GI Remarks ileal conduit opening. Extremeties Extremities Exam: Moderate Edema, Pitting Edema Neurologic Neuro Exam: Alert, Awake, Oriented Psychiatric Psych Exam: Appropriate Responses Assessment/Plan Assessment Summary: VIJAY/Acute Renal Failure, Hypotension, CKD Stage IV Electrolyte Assessment: Metabolic Acidosis Problem List: (1) Anemia in chronic kidney disease ICD Codes: N18.9 - Chronic kidney disease, unspecified; D63.1 - Anemia in chronic kidney disease Status: Acute (2) Hypertension ICD Codes: I10 - Essential (primary) hypertension Status: Chronic (3) Acidemia ICD Codes: E87.2 - Acidosis Status: Acute (4) Acute kidney injury ICD Codes: N17.9 - Acute kidney failure, unspecified Status: Acute (5) Paraplegia ICD Codes: G82.20 - Paraplegia Status: Chronic (6) Paraplegia ICD Codes: G82.20 - Paraplegia Status: Acute (7) Acute on chronic kidney failure ICD Codes: N17.9 - Acute kidney failure, unspecified; N18.9 - Chronic kidney disease, unspecified Status: Chronic Plan Patient has increase in BUN and Creatinine. Also has metabolic acidosis. Seen by urology, possibly will need Nephrostomy. If no improvement, possible HD tomorrow. Continue IVF with NaHco3. BP is improving. Follow the urine out put and BMP. Lynsey Goldman MD Dec 02, 2016 19:43
[2016-12-02] MEDS: ATORVASTATIN 40 MG TAB PO SCH (20:42)
[2016-12-02] MEDS ORDERED: CHLORHEXIDINE GLUCONATE 2 % 1 PACK (2 CLOTHS)(extra cloths) TOPICAL PRN (20:45)
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
[2016-12-03] VITALS (21 sets, daily range): BP systolic 87–167; BP diastolic 49–71; PULSE 55–88; RESP 7–14; TEMP 98–98.8; O2SAT 95–100
[2016-12-03] MEDS: IMIPENEM/CILASTATIN INJ 250 MG in SODIUM CHLORIDE 0.9% INJ 100 ML IV SCH ×2 (00:03→20:51)
[2016-12-03] MEDS: SODIUM BICARBONATE 8.4% INJ 75 MEQ in SODIUM CHLOR 0.9% 1000 ML INJ 1,000 ML IV SCH ×3 (00:03→17:07)
[2016-12-03] MEDS: CHLORHEXIDINE GLUCONATE 2 % 1 PACK (2 CLOTHS)(taper/protocol) TOPICAL SCH (04:00)
[2016-12-03] MEDS: HEPARIN SODIUM - SQ 10,000 UNITS/ML VIAL SQ SCH (05:21)
[2016-12-03 05:23] LABS: AUTOMATED NEUTROPHIL # 7.1 TH/MM3 (1.8-7.7); BASOPHIL # 0.1 TH/MM3 (0-0.2); BASOPHIL % 0.7 % (0.0-2.0); EOSINOPHIL # 0.1 TH/MM3 (0-0.4); EOSINOPHIL % 0.7 % (0.0-4.0); HEMATOCRIT 27.5 % (39.0-51.0); HEMO FLAGS DIFF FINAL; LYMPH % 15.2 % (9.0-44.0); LYMPHOCYTE # 1.4 TH/MM3 (1.0-4.8); MEAN CELL VOLUME 86.4 FL (80.0-100.0); MEAN CORPUSCULAR HGB CONC 32.5 % (32.0-36.0); MONO % 5.6 % (0.0-8.0); NEUT % 77.8 % (16.0-70.0); PLATELET COUNT 209 TH/MM3 (150-450); RED BLOOD COUNT 3.19 MIL/MM3 (4.50-5.90); RED CELL DISTRIBUTION WIDTH 19.4 % (11.6-17.2); WHITE BLOOD COUNT 9.1 TH/MM3 (4.0-11.0)
[2016-12-03 05:50] LABS: BICARBONATE 11.7 MEQ/L (21.0-32.0); POTASSIUM 3.6 MEQ/L (3.5-5.1)
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
[2016-12-03] MEDS: SODIUM CHLORIDE 0.9% FLUSH 10 ML FLUSH IV FLUSH SCH ×2 (08:58→20:52)
[2016-12-03] MEDS: hydrALAZINE HCL 100 MG TAB PO SCH ×2 (08:58→20:51)
[2016-12-03] MEDS: amLODIPine BESYLATE 5 MG TAB PO SCH (08:59)
[2016-12-03] MEDS: FERROUS SULFATE 325 MG (65 MG ELEMENTAL IRON) TAB PO SCH ×3 (08:59→17:08)
[2016-12-03] MEDS: LACTOBACILLUS ACIDOPHILUS TAB PO SCH ×3 (08:59→17:08)
[2016-12-03] MEDS: FUROSEMIDE 20 MG TAB PO SCH (08:59)
[2016-12-03] MEDS: ASPIRIN EC 81 MG TABEC PO SCH (08:59)
[2016-12-03] MEDS: CLOPIDOGREL 75 MG TAB PO SCH (09:00)
[2016-12-03] MEDS: MULTIVITAMIN TAB PO SCH (09:00)
[2016-12-03] MEDS: CYANOCOBALAMIN 1,000 MCG TAB PO SCH (09:00)
[2016-12-03] MEDS: CALCITRIOL 0.25 MCG CAP PO SCH (09:00)
[2016-12-03] MEDS: METOPROLOL SUCCINATE 50 MG EXTENDED RELEASE TAB PO SCH (09:00)
[2016-12-03] MEDS: PANTOPRAZOLE SOD 40 MG DELAYED RELEASE TAB PO SCH (09:00)
[2016-12-03] MEDS: VANCOMYCIN 500 MG VIAL (FOR ORAL USE ONLY) PO SCH ×4 (09:00→20:51)
[2016-12-03] MEDS: ASCORBIC ACID 500 MG TAB PO SCH (09:01)
[2016-12-03] MEDS: NYSTATIN 100,000 UNIT/GM CREAM 15 GM TOPICAL SCH ×2 (09:01→20:52)
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
--- NOTE | 2016-12-03 10:59 | HHI.NPPN ---
Subjective History of Present Illness 61-year-old male known to me from before with past medical history of chronic kidney disease and single kidney, history of peripheral vascular disease, hypertension, hyperlipidemia, partial small-bowel obstruction, history of paraplegia, history of neobladder formation with neurogenic bladder, who was admitted at [facility] for rehabilitation. I saw the patient when he was admitted in September and at that time he had creatinine as high as 6.3 and it improved to around 2.2 to 2.4 and it has been gradually going up. Additional Remarks Patient is alert, feeling tired, mild SOB, not in distress. Review of Systems General Constitutional: Fatigue Respiratory Lungs: SOB Cardiovascular Cardiac: Edema, BAEZ Objective Data Data 12/03/16 12/04/16 19:00 07:00 Intake Total 552 ml Balance 552 ml IV Total 552 ml Vital Signs Date Time Temp Pulse Resp B/P (MAP) Pulse Ox O2 Delivery O2 Flow Rate FiO2 12/03/16 06:00 79 12/03/16 04:00 57 12/03/16 04:00 98.1 55 11 109/56 (73) 97 12/03/16 03:34 100 30 12/03/16 02:00 59 12/03/16 00:47 100 30 12/03/16 00:00 76 12/03/16 00:00 98.1 76 11 124/62 (82) 95 12/02/16 22:00 76 12/02/16 20:00 75 12/02/16 20:00 98.1 76 12 134/63 (86) 95 12/02/16 18:00 76 12/02/16 16:00 97.9 61 110/53 (72) 96 12/02/16 16:00 61 12/02/16 14:30 68 117/60 (79) 12/02/16 13:30 70 121/53 (75) 12/02/16 12:30 61 102/53 (69) 12/02/16 11:50 97.2 70 20 115/49 (71) 95 -: 12/03/16 0424 12/03/16 0429 Microbiology 12/02/16 Aerobic Blood Culture, Resulted Pending 12/02/16 Anaerobic Blood Culture - Final, Resulted ONLY AEROBIC CULTURE ORDERED 12/02/16 Aerobic Blood Culture, Resulted Pending 12/02/16 Anaerobic Blood Culture - Final, Resulted ONLY AEROBIC CULTURE ORDERED Physical Exam General Appearance: Well Nourished, No Acute Distress, Comfortable Eyes Eye Exam: Pupils Equal Throat Throat Exam: Oral Mucosa [place] & Moist Pulmonary Resp Exam: No Distress, Rhonchi, Decreased Bases, Diminished Breath Sounds Cardiology CV Exam: Regular Gastrointestinal/Abdomen GI Exam: Soft, Non-Tender, Distended GI Remarks ileal conduit opening. Extremeties Extremities Exam: Moderate Edema, Pitting Edema Neurologic Neuro Exam: Alert, Awake, Oriented Psychiatric Psych Exam: Appropriate Responses Assessment/Plan Assessment Summary: VIJAY/Acute Renal Failure, Hypotension, CKD Stage IV Electrolyte Assessment: Metabolic Acidosis Problem List: (1) Anemia in chronic kidney disease ICD Codes: N18.9 - Chronic kidney disease, unspecified; D63.1 - Anemia in chronic kidney disease Status: Acute (2) Hypertension ICD Codes: I10 - Essential (primary) hypertension Status: Chronic (3) Acidemia ICD Codes: E87.2 - Acidosis Status: Acute (4) Acute kidney injury ICD Codes: N17.9 - Acute kidney failure, unspecified Status: Acute (5) Paraplegia ICD Codes: G82.20 - Paraplegia Status: Chronic (6) Paraplegia ICD Codes: G82.20 - Paraplegia Status: Acute (7) Acute on chronic kidney failure ICD Codes: N17.9 - Acute kidney failure, unspecified; N18.9 - Chronic kidney disease, unspecified Status: Chronic Plan Patient has increase in BUN and Creatinine. Also has metabolic acidosis. Seen by urology, possibly will need Nephrostomy. If no improvement, possible HD tomorrow. Continue IVF with NaHco3. BP is improving. Patient has moderate Hydronephrosis on rt. side, has single kidney. Possibly will improve by Nephrostomy. It is medically necessary to improve renal function, otherwise, he will be on Dialysis. Lynsey Goldman MD Dec 03, 2016 10:59
[2016-12-03] MEDS ORDERED: IMIPENEM/CILASTATIN INJ 250 MG in SODIUM CHLORIDE 0.9% INJ 100 ML IV SCH ×2 (11:00→22:00)
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
[2016-12-03 17:19] LABS: APTT (PATIENT) 31.5 SEC (24.3-30.1); INTERNATIONAL NORMALIZED RATIO 1.1 RATIO; PROTHROMBIN TIME - PATIENT 12.5 SEC (9.8-11.6)
--- NOTE | 2016-12-03 18:32 | RADRPT ---
EXAM DATE/TIME: 12/03/2016 18:15 [facility] COMPARISON: No previous studies available for comparison. INDICATIONS : MRI clearance. MEDICAL HISTORY : None. SURGICAL HISTORY : None. ENCOUNTER: Initial ACUITY: 1 day PAIN SCORE: Non-responsive. LOCATION: Bilateral skull. FINDINGS: A two view examination of the skull demonstrates no evidence of fracture. No radiopaque foreign bodi es are seen. CONCLUSION: No foreign bodies to contraindicate MRI. Rafi Helton MD on December 03, 2016 at 18:30 Board Certified Radiologist. This report was verified electronically.
--- NOTE | 2016-12-03 19:53 | RADRPT ---
EXAM DATE/TIME: 12/03/2016 18:27 [facility] COMPARISON: MRI CERVICAL SPINE W/O CONTRAST, June 26, 2014, 11:08. INDICATIONS : Pain. MEDICAL HISTORY : Unknown. SURGICAL HISTORY : Fusion, cervical. Kidney removal, colostomy and hernia repair. ENCOUNTER: Initial ACUITY: 1 day PAIN SCORE: 7/10 LOCATION: Neck. TECHNIQUE: Multiplanar, multisequence MRI examination of the cervical spine was performed. FINDINGS: Findings an anterior fusion from C5-C7. Possible Chiari malformation or tonsillar ectopia with the ce rebellar tonsils below the foramen magnum. There appears to be dilation of the occipital horns of the lateral ventricles characteristic of hydrocephalus. Otherwise, images are nondiagnostic due to motio n artifact. CONCLUSION: Extremely limited exam due to low [id number], severe motion artifact and limited anatomic d etail. Findings as above. Sammy Eduardo MD on December 03, 2016 at 19:47 Board Certified Radiologist. This report was verified electronically.
[2016-12-03] MEDS: ATORVASTATIN 40 MG TAB PO SCH (20:51)
[2016-12-04] VITALS (28 sets, daily range): BP systolic 101–142; BP diastolic 51–63; PULSE 54–73; RESP 8–29; TEMP 97.9–98.9; O2SAT 96–100
[2016-12-04] MEDS: SODIUM BICARBONATE 8.4% INJ 75 MEQ in SODIUM CHLOR 0.9% 1000 ML INJ 1,000 ML IV SCH ×3 (01:36→20:39)
[2016-12-04] MEDS: CHLORHEXIDINE GLUCONATE 2 % 1 PACK (2 CLOTHS)(taper/protocol) TOPICAL SCH (04:00)
[2016-12-04 05:08] LABS: BICARBONATE 12.7 MEQ/L (21.0-32.0); POTASSIUM 3.5 MEQ/L (3.5-5.1)
[2016-12-04 05:31] LABS: CALCIUM-PROTEIN CORRECTED 7.2 MG/DL (8.5-10.1)
[2016-12-04] MEDS ORDERED: CALCIUM GLUCONATE 10% 1 GM/10 ML VIAL IV PUSH ONE (06:30)
[2016-12-04] MEDS ORDERED: CALCIUM GLUCONATE INJ 1 GM in SODIUM CHLORIDE 0.9% INJ 100 ML IV ONE (06:30)
[2016-12-04] MEDS: SODIUM CHLORIDE 0.9% FLUSH 10 ML FLUSH IV FLUSH SCH ×2 (09:00→20:40)
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
[2016-12-04] MEDS: IMIPENEM/CILASTATIN INJ 250 MG in SODIUM CHLORIDE 0.9% INJ 100 ML IV SCH ×2 (10:05→20:39)
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
--- NOTE | 2016-12-04 11:48 | HHI.NPPN ---
Subjective History of Present Illness 61-year-old male known to me from before with past medical history of chronic kidney disease and single kidney, history of peripheral vascular disease, hypertension, hyperlipidemia, partial small-bowel obstruction, history of paraplegia, history of neobladder formation with neurogenic bladder, who was admitted at [facility] for rehabilitation. I saw the patient when he was admitted in September and at that time he had creatinine as high as 6.3 and it improved to around 2.2 to 2.4 and it has been gradually going up. Additional Remarks Patient is alert, feeling tired, mild SOB, remain with BIPAP. Review of Systems General Constitutional: Fatigue Respiratory Lungs: SOB Cardiovascular Cardiac: Edema, BAEZ Objective Data Data 12/04/16 12/05/16 18:59 06:59 Intake Total 110 ml Balance 110 ml IV Total 110 ml Vital Signs Date Time Temp Pulse Resp B/P (MAP) Pulse Ox O2 Delivery O2 Flow Rate FiO2 12/04/16 10:00 73 12/04/16 09:48 96 Nasal Cannula 2.00 12/04/16 08:00 68 12/04/16 06:00 56 12/04/16 04:00 61 12/04/16 04:00 98.4 61 9 101/54 (70) 98 12/04/16 03:54 98 25 12/04/16 02:00 59 12/04/16 00:51 99 25 12/04/16 00:00 98.2 57 8 97 12/04/16 00:00 55 12/03/16 22:45 98 25 12/03/16 22:00 65 12/03/16 21:44 97 Nasal Cannula 2.00 12/03/16 20:00 62 12/03/16 20:00 98.0 62 14 143/61 (88) 95 12/03/16 18:00 61 12/03/16 16:00 57 12/03/16 16:00 98.0 57 8 93/63 (73) 96 12/03/16 15:00 60 9 87/49 (62) 96 12/03/16 14:00 67 12/03/16 14:00 67 9 120/56 (77) 97 12/03/16 13:00 67 11 122/59 (80) 97 12/03/16 12:00 58 12/03/16 12:00 98.8 58 7 94/50 (65) 98 -: 12/03/16 0424 12/04/16 0357 Microbiology 12/03/16 Stool Occult Blood (ALLIE) - Final, Complete HEMOCCULT NEGATIVE Physical Exam General Appearance: Well Nourished, No Acute Distress, Comfortable Eyes Eye Exam: Pupils Equal Throat Throat Exam: Oral Mucosa [place] & Moist Pulmonary Resp Exam: No Distress, Rhonchi, Decreased Bases, Diminished Breath Sounds Cardiology CV Exam: Regular Gastrointestinal/Abdomen GI Exam: Soft, Non-Tender, Distended GI Remarks ileal conduit opening. Extremeties Extremities Exam: Moderate Edema, Pitting Edema Neurologic Neuro Exam: Alert, Awake, Oriented Psychiatric Psych Exam: Appropriate Responses Assessment/Plan Assessment Summary: VIJAY/Acute Renal Failure, Hypotension, CKD Stage IV Electrolyte Assessment: Metabolic Acidosis Problem List: (1) Anemia in chronic kidney disease ICD Codes: N18.9 - Chronic kidney disease, unspecified; D63.1 - Anemia in chronic kidney disease Status: Acute (2) Hypertension ICD Codes: I10 - Essential (primary) hypertension Status: Chronic (3) Acidemia ICD Codes: E87.2 - Acidosis Status: Acute (4) Acute kidney injury ICD Codes: N17.9 - Acute kidney failure, unspecified Status: Acute (5) Paraplegia ICD Codes: G82.20 - Paraplegia Status: Chronic (6) Paraplegia ICD Codes: G82.20 - Paraplegia Status: Acute (7) Acute on chronic kidney failure ICD Codes: N17.9 - Acute kidney failure, unspecified; N18.9 - Chronic kidney disease, unspecified Status: Chronic Plan Patient has increase in BUN and Creatinine. Also has metabolic acidosis. Seen by urology, possibly will need Nephrostomy. If no improvement, possible HD tomorrow. Continue IVF with NaHco3. BP is improving. Patient has moderate Hydronephrosis on rt. side, has single kidney. Possibly will improve by Nephrostomy. It is medically necessary to improve renal function. Now will go for Nephrostomy. Follow the urine out put and BMP. Calcium was low and replaced. Lynsey Goldman MD Dec 04, 2016 11:48
[2016-12-04] MEDS: LACTOBACILLUS ACIDOPHILUS TAB PO SCH ×3 (13:00→18:00)
[2016-12-04] MEDS: VANCOMYCIN 500 MG VIAL (FOR ORAL USE ONLY) PO SCH ×4 (13:00→20:39)
[2016-12-04] MEDS: FERROUS SULFATE 325 MG (65 MG ELEMENTAL IRON) TAB PO SCH ×3 (13:00→18:00)
[2016-12-04 13:18] LABS: AUTOMATED NEUTROPHIL # 8.4 TH/MM3 (1.8-7.7); BASOPHIL # 0.1 TH/MM3 (0-0.2); BASOPHIL % 0.5 % (0.0-2.0); EOSINOPHIL % 0.4 % (0.0-4.0); LYMPHOCYTE # 1.2 TH/MM3 (1.0-4.8); MEAN CELL VOLUME 84.6 FL (80.0-100.0); MEAN CORPUSCULAR HEMOGLOBIN 26.9 PG (27.0-34.0); MEAN CORPUSCULAR HGB CONC 31.8 % (32.0-36.0); MONO % 5.6 % (0.0-8.0); NEUT % 81.5 % (16.0-70.0); PLATELET COUNT 228 TH/MM3 (150-450); RED BLOOD COUNT 3.07 MIL/MM3 (4.50-5.90); RED CELL DISTRIBUTION WIDTH 19.8 % (11.6-17.2); WHITE BLOOD COUNT 10.3 TH/MM3 (4.0-11.0)
[2016-12-04 13:23] LABS: HEMO FLAGS AUTO DIFF
[2016-12-04] MEDS: CYANOCOBALAMIN 1,000 MCG TAB PO SCH (13:25)
[2016-12-04] MEDS: ASCORBIC ACID 500 MG TAB PO SCH (13:25)
[2016-12-04] MEDS: FUROSEMIDE 20 MG TAB PO SCH (13:25)
[2016-12-04] MEDS: hydrALAZINE HCL 100 MG TAB PO SCH ×2 (13:26→20:39)
[2016-12-04] MEDS: CALCITRIOL 0.25 MCG CAP PO SCH (13:26)
[2016-12-04] MEDS: METOPROLOL SUCCINATE 50 MG EXTENDED RELEASE TAB PO SCH (13:26)
[2016-12-04] MEDS: MULTIVITAMIN TAB PO SCH (13:26)
[2016-12-04] MEDS: ASPIRIN EC 81 MG TABEC PO SCH (13:26)
[2016-12-04] MEDS: PANTOPRAZOLE SOD 40 MG DELAYED RELEASE TAB PO SCH (13:27)
[2016-12-04] MEDS: NYSTATIN 100,000 UNIT/GM CREAM 15 GM TOPICAL SCH ×2 (13:27→20:39)
[2016-12-04] MEDS: amLODIPine BESYLATE 5 MG TAB PO SCH (13:27)
[2016-12-04 14:30] LABS: BANDS 20 % (0-6); METAMYELOCYTES 2 % (0-1); MYELOCYTES 2 % (0-0); NEUTROPHIL # MANUAL DIFF 9.3 TH/MM3 (1.8-7.7); POLYS (SEG NEUTROPHILS) 66 % (16-70); TOXIC GRANULATION 1+ (NORMAL); WBC DIFF SAMPLE 100
[2016-12-04 14:31] LABS: OVALOCYTES 1+ (NORMAL); SCAN/DIFF FINAL DIFF MANUAL
[2016-12-04] MEDS ORDERED: SODIUM CHLOR 0.9% 1000 ML INJ 1,000 ML OTHER PRN ×2 (15:31)
[2016-12-04] MEDS ORDERED: SODIUM CHLOR 0.9% 1000 ML INJ 1,000 ML IV PRN (15:31)
[2016-12-04] MEDS ORDERED: NITROGLYCERIN 0.4 MG SL 25 TABS/BTL SL PRN (15:45)
[2016-12-04] MEDS ORDERED: HEPARIN SODIUM - IV 10,000 UNITS/10 ML VIAL IVF PRN (15:45)
[2016-12-04] MEDS ORDERED: GELATIN 12 MM/7 MM FOAM TOP PRN (15:45)
[2016-12-04] MEDS ORDERED: MANNITOL 12.5 GM/50 ML VIAL IV PRN (15:45)
[2016-12-04] MEDS ORDERED: ONDANSETRON HCL 4 MG/2 ML VIAL IV PRN (15:45)
[2016-12-04] MEDS ORDERED: ALBUMIN HUMAN 25% 25 GM/100 ML BAGP IV PRN (15:45)
[2016-12-04] MEDS ORDERED: SODIUM CHLORIDE 0.9% FLUSH 10 ML FLUSH IV FLUSH PRN (15:45)
[2016-12-04] MEDS ORDERED: diphenhydrAMINE HCL 25 MG CAP PO PRN (15:45)
[2016-12-04] MEDS ORDERED: SODIUM CHLORIDE 0.9% FLUSH 10 ML FLUSH IVF PRN (16:45)
--- NOTE | 2016-12-04 16:45 | PD.RAD ---
Post Procedure Progress Note Pre Procedure Diagnosis: (1) Acute on chronic kidney failure Post Procedure Diagnosis: (1) Acute on chronic kidney failure Procedure Date: Dec 04, 2016 Supervising Radiologist: Rafi Helton Proceduralist/Assist: RT Shanna(R) Estimated blood loss: 10ml Anesthesia: Local Plan of Activity Patient to Unit: Critical Care Patient Condition: Critical See PACS Report for procedural detail/treatment Central Venous Access Device Procedure 1 Right Internal Jugular Hemodialysis Catheter Non-Tunneled Placement dual lumen [place]: 14 Additional Detail: 15cm Rafi Summers MD Dec 04, 2016 16:45
[2016-12-04] MEDS: GENTAMICIN SULFATE (DIALYSIS USE ONLY) 20 MG/2 ML VIAL IV PRN (17:21)
[2016-12-04] MEDS: HEPARIN SODIUM - IV 10,000 UNITS/10 ML VIAL PRN (17:21)
[2016-12-04] MEDS: ATORVASTATIN 40 MG TAB PO SCH (20:39)
[2016-12-05] VITALS (15 sets, daily range): BP systolic 88–133; BP diastolic 52–72; PULSE 49–72; RESP 10–26; TEMP 97.4–99; O2SAT 94–99
[2016-12-05] MEDS: CHLORHEXIDINE GLUCONATE 2 % 1 PACK (2 CLOTHS)(taper/protocol) TOPICAL SCH (04:00)
[2016-12-05 05:15] LABS: BICARBONATE 17.9 MEQ/L (21.0-32.0); POTASSIUM 3.2 MEQ/L (3.5-5.1)
[2016-12-05 05:56] LABS: CALCIUM-PROTEIN CORRECTED 7.3 MG/DL (8.5-10.1)
[2016-12-05] MEDS ORDERED: CALCIUM GLUCONATE INJ 1 GM in DEXTROSE 5% IN WATER 100ML INJ 100 ML IV ONE ×2 (07:00)
[2016-12-05] MEDS ORDERED: POTASSIUM CHLORIDE 25 MEQ EFFERVESCENT TAB PO ONE (07:00)
[2016-12-05] MEDS: SODIUM CHLORIDE 0.9% FLUSH 10 ML FLUSH IVF SCH (08:25)
[2016-12-05] MEDS: SODIUM BICARBONATE 8.4% INJ 75 MEQ in SODIUM CHLOR 0.9% 1000 ML INJ 1,000 ML IV SCH ×2 (08:25→18:21)
[2016-12-05] MEDS: SODIUM CHLORIDE 0.9% FLUSH 10 ML FLUSH IV FLUSH SCH ×2 (08:25→21:14)
[2016-12-05] MEDS: CYANOCOBALAMIN 1,000 MCG TAB PO SCH (08:26)
[2016-12-05] MEDS: NYSTATIN 100,000 UNIT/GM CREAM 15 GM TOPICAL SCH ×2 (08:26→21:14)
[2016-12-05] MEDS: ASCORBIC ACID 500 MG TAB PO SCH (08:26)
[2016-12-05] MEDS: FERROUS SULFATE 325 MG (65 MG ELEMENTAL IRON) TAB PO SCH ×3 (08:26→17:25)
[2016-12-05] MEDS: ASPIRIN EC 81 MG TABEC PO SCH (08:26)
[2016-12-05] MEDS: FUROSEMIDE 20 MG TAB PO SCH (08:26)
[2016-12-05] MEDS: PANTOPRAZOLE SOD 40 MG DELAYED RELEASE TAB PO SCH (08:26)
[2016-12-05] MEDS: METOPROLOL SUCCINATE 50 MG EXTENDED RELEASE TAB PO SCH (08:27)
[2016-12-05] MEDS: CALCITRIOL 0.25 MCG CAP PO SCH (08:27)
[2016-12-05] MEDS: MULTIVITAMIN TAB PO SCH (08:27)
[2016-12-05] MEDS: amLODIPine BESYLATE 5 MG TAB PO SCH (08:27)
[2016-12-05] MEDS: hydrALAZINE HCL 100 MG TAB PO SCH ×2 (08:27→21:13)
[2016-12-05] MEDS: LACTOBACILLUS ACIDOPHILUS TAB PO SCH ×3 (08:27→17:25)
[2016-12-05] MEDS: VANCOMYCIN 500 MG VIAL (FOR ORAL USE ONLY) PO SCH ×4 (08:28→21:13)
[2016-12-05] MEDS: GENTAMICIN SULFATE (DIALYSIS USE ONLY) 20 MG/2 ML VIAL IV PRN (08:39)
[2016-12-05] MEDS: HEPARIN SODIUM - IV 10,000 UNITS/10 ML VIAL PRN (08:40)
--- NOTE | 2016-12-05 10:25 | HHI.NPPN ---
Subjective History of Present Illness 61-year-old male known to me from before with past medical history of chronic kidney disease and single kidney, history of peripheral vascular disease, hypertension, hyperlipidemia, partial small-bowel obstruction, history of paraplegia, history of neobladder formation with neurogenic bladder, who was admitted at [facility] for rehabilitation. I saw the patient when he was admitted in September and at that time he had creatinine as high as 6.3 and it improved to around 2.2 to 2.4 and it has been gradually going up. Additional Remarks Patient is alert, feeling tired, mild SOB, r Review of Systems General Constitutional: Fatigue Respiratory Lungs: SOB Cardiovascular Cardiac: Edema, BAEZ Objective Data Data Vital Signs Date Time Temp Pulse Resp B/P (MAP) Pulse Ox O2 Delivery O2 Flow Rate FiO2 12/05/16 06:00 66 12/05/16 04:23 96 25 12/05/16 04:00 98.4 71 20 117/61 (79) 97 12/05/16 04:00 71 12/05/16 02:00 49 12/05/16 00:00 55 12/05/16 00:00 98.0 55 10 88/52 (64) 96 12/04/16 23:02 16 12/04/16 22:36 96 25 12/04/16 22:22 98 Simple Mask 6.00 12/04/16 22:00 65 12/04/16 20:00 55 12/04/16 20:00 98.9 62 14 126/57 (80) 100 12/04/16 20:00 98.9 62 14 126/57 (80) 100 12/04/16 18:00 63 12/04/16 17:46 63 15 122/61 (81) 100 12/04/16 17:31 58 10 127/63 (84) 98 12/04/16 17:15 63 13 131/59 (83) 99 12/04/16 17:00 61 11 119/57 (77) 99 12/04/16 17:00 61 12/04/16 16:59 56 13 115/56 (75) 99 12/04/16 16:39 64 12/04/16 16:39 97.9 64 17 117/55 (75) 99 12/04/16 15:00 54 16 104/51 (68) 96 12/04/16 15:00 55 12/04/16 14:00 72 12/04/16 14:00 72 23 120/57 (78) 97 12/04/16 13:00 73 12/04/16 13:00 73 21 125/58 (80) 97 12/04/16 12:00 71 12/04/16 12:00 97.9 71 13 110/52 (71) 96 12/04/16 11:00 60 12/04/16 11:00 68 18 109/53 (71) 97 -: 12/04/16 1254 12/05/16 0441 Physical Exam General Appearance: Well Nourished, No Acute Distress, Comfortable Eyes Eye Exam: Pupils Equal Throat Throat Exam: Oral Mucosa [place] & Moist Pulmonary Resp Exam: No Distress, Rhonchi, Decreased Bases, Diminished Breath Sounds Cardiology CV Exam: Regular Gastrointestinal/Abdomen GI Exam: Soft, Non-Tender, Distended Extremeties Extremities Exam: Moderate Edema, Pitting Edema Neurologic Neuro Exam: Alert, Awake, Oriented Psychiatric Psych Exam: Appropriate Responses Assessment/Plan Assessment Summary: VIJAY/Acute Renal Failure, Hypotension, CKD Stage IV Electrolyte Assessment: Metabolic Acidosis Problem List: (1) Anemia in chronic kidney disease ICD Codes: N18.9 - Chronic kidney disease, unspecified; D63.1 - Anemia in chronic kidney disease Status: Acute (2) Hypertension ICD Codes: I10 - Essential (primary) hypertension Status: Chronic (3) Acidemia ICD Codes: E87.2 - Acidosis Status: Acute (4) Acute kidney injury ICD Codes: N17.9 - Acute kidney failure, unspecified Status: Acute (5) Paraplegia ICD Codes: G82.20 - Paraplegia Status: Chronic (6) Paraplegia ICD Codes: G82.20 - Paraplegia Status: Acute (7) Acute on chronic kidney failure ICD Codes: N17.9 - Acute kidney failure, unspecified; N18.9 - Chronic kidney disease, unspecified Status: Chronic Plan Patient has increase in BUN and Creatinine. Also has metabolic acidosis. Seen by urology, possibly will need Nephrostomy. BP is improving. Patient has moderate Hydronephrosis on rt. side, has single kidney. Possibly will improve by Nephrostomy. It is medically necessary to improve renal function. Now will go for Nephrostomy. a Jean will be placed on Urostomy as retain urine seen at HD 4 KG 3 L UF tolerates it well Salas Dsouza MD Dec 05, 2016 10:25
[2016-12-05] MEDS: IMIPENEM/CILASTATIN INJ 250 MG in SODIUM CHLORIDE 0.9% INJ 100 ML IV SCH (10:34)
[2016-12-05] MEDS ORDERED: FUROSEMIDE 40 MG/4 ML VIAL ONE (11:03)
--- NOTE | 2016-12-05 11:06 | HHI.IDPN ---
Subjective Subjective Remarks pt remains afebrile he is anuric He is started on hemodylisis Antibiotics primacin vanco po Allergies: Coded Allergies: chlorpromazine (Verified Allergy, Severe, MUSCLE CONTRACTURES, 11/18/16) diatrizoate meglumine (Verified Allergy, Severe, Anaphylaxis, 11/18/16) gadobenic acid (Verified Allergy, Severe, Anaphylaxis, 11/18/16) gadodiamide (Verified Allergy, Severe, Anaphylaxis, 11/18/16) gadoteridol (Verified Allergy, Severe, Anaphylaxis, 11/18/16) iodixanol (Verified Allergy, Severe, Anaphylaxis, 11/18/16) iohexol (Verified Allergy, Severe, Anaphylaxis, 11/18/16) prochlorperazine (Verified Allergy, Severe, MUSCLE CONTRACTURES, 11/18/16) Objective . Vital Signs Date Time Temp Pulse Resp B/P (MAP) Pulse Ox O2 Delivery O2 Flow Rate FiO2 12/05/16 06:00 66 12/05/16 04:23 96 25 12/05/16 04:00 98.4 71 20 117/61 (79) 97 12/05/16 04:00 71 12/05/16 02:00 49 12/05/16 00:00 55 12/05/16 00:00 98.0 55 10 88/52 (64) 96 12/04/16 23:02 16 12/04/16 22:36 96 25 12/04/16 22:22 98 Simple Mask 6.00 12/04/16 22:00 65 12/04/16 20:00 55 12/04/16 20:00 98.9 62 14 126/57 (80) 100 12/04/16 20:00 98.9 62 14 126/57 (80) 100 12/04/16 18:00 63 12/04/16 17:46 63 15 122/61 (81) 100 12/04/16 17:31 58 10 127/63 (84) 98 12/04/16 17:15 63 13 131/59 (83) 99 12/04/16 17:00 61 11 119/57 (77) 99 12/04/16 17:00 61 12/04/16 16:59 56 13 115/56 (75) 99 12/04/16 16:39 64 12/04/16 16:39 97.9 64 17 117/55 (75) 99 12/04/16 15:00 54 16 104/51 (68) 96 12/04/16 15:00 55 12/04/16 14:00 72 12/04/16 14:00 72 23 120/57 (78) 97 12/04/16 13:00 73 12/04/16 13:00 73 21 125/58 (80) 97 12/04/16 12:00 71 12/04/16 12:00 97.9 71 13 110/52 (71) 96 12/04/16 11:00 60 12/04/16 11:00 68 18 109/53 (71) 97 . Laboratory Tests Test 12/04/16 12:54 White Blood Count 10.3 TH/MM3 Red Blood Count 3.07 MIL/MM3 Hemoglobin 8.3 GM/DL Hematocrit 26.0 % Mean Corpuscular Volume 84.6 FL Mean Corpuscular Hemoglobin 26.9 PG Mean Corpuscular Hemoglobin Concent 31.8 % Red Cell Distribution Width 19.8 % Platelet Count 228 TH/MM3 Mean Platelet Volume 7.0 FL Neutrophils (%) (Auto) 81.5 % Lymphocytes (%) (Auto) 12.0 % Monocytes (%) (Auto) 5.6 % Eosinophils (%) (Auto) 0.4 % Basophils (%) (Auto) 0.5 % Neutrophils # (Auto) 8.4 TH/MM3 Lymphocytes # (Auto) 1.2 TH/MM3 Monocytes # (Auto) 0.6 TH/MM3 Eosinophils # (Auto) 0.0 TH/MM3 Basophils # (Auto) 0.1 TH/MM3 CBC Comment AUTO DIFF Differential Total Cells Counted 100 Neutrophils % (Manual) 66 % Band Neutrophils % 20 % Lymphocytes % 9 % Monocytes % 1 % Neutrophils # (Manual) 9.3 TH/MM3 Metamyelocytes 2 % Myelocytes 2 % Differential Comment FINAL DIFF MANUAL Atypical Lymphocytes % Toxic Granulation 1+ Tear Drop Cells Ovalocytes 1+ Laboratory Tests Test 12/04/16 03:57 12/05/16 04:41 Blood Urea Nitrogen 63 MG/DL 49 MG/DL Creatinine 7.36 MG/DL 5.78 MG/DL Random Glucose 69 MG/DL 71 MG/DL Total Protein 6.1 GM/DL 6.2 GM/DL Calcium Level 6.7 MG/DL 6.8 MG/DL Sodium Level 138 MEQ/L 142 MEQ/L Potassium Level 3.5 MEQ/L 3.2 MEQ/L Chloride Level 112 MEQ/L 110 MEQ/L Carbon Dioxide Level 12.7 MEQ/L 17.9 MEQ/L Anion Gap 13 MEQ/L 14 MEQ/L Estimat Glomerular Filtration Rate 8 ML/MIN 10 ML/MIN Protein Corrected Calcium 7.2 MG/DL 7.3 MG/DL Microbiology Date/Time Source Procedure Growth Status 12/02/16 20:30 Blood Peripheral Aerobic Blood Culture - Preliminary NO GROWTH IN 2 DAYS Resulted 12/02/16 20:30 Blood Peripheral Anaerobic Blood Culture - Final ONLY AEROBIC CULTURE ORDERED Resulted 12/02/16 20:28 Blood Peripheral Aerobic Blood Culture - Preliminary NO GROWTH IN 2 DAYS Resulted 12/02/16 20:28 Blood Peripheral Anaerobic Blood Culture - Final ONLY AEROBIC CULTURE ORDERED Resulted 12/03/16 12:50 Stool Stool Stool Occult Blood (ALLIE) - Final HEMOCCULT NEGATIVE Complete Imaging Last Impressions Skull X-Ray 12/03/16 0000 Signed Impressions: Service Date/Time: November 18:15 - CONCLUSION: No foreign bodies to contraindicate MRI. Rafi Helton MD Cervical Spine MRI 12/03/16 0000 Signed Impressions: Service Date/Time: November 18:27 - CONCLUSION: Extremely limited exam due to low [id number], severe motion artifact and limited anatomic detail. Findings as above. Sammy Eduardo MD Abdomen/Pelvis CT 12/02/16 0800 Signed Impressions: Service Date/Time: Friday, December 02, 2016 22:21 - CONCLUSION: 1. Small to moderate bilateral effusions, increased from October 18 with compressive atelectasis in both lungs. 2. Stable mild to moderate right-sided hydronephrosis with ureteral diversion into a neobladder. Also left lower quadrant ostomy and right lower quadrant urostomy. 3. Postoperative left nephrectomy and cholecystectomy. No bowel obstruction, free air or free fluid. Previous fixation left hemipelvis and proximal left femur. Nura Ramirez MD Carotid Artery Ultrasound 12/02/16 0000 Signed Impressions: Service Date/Time: Friday, December 02, 2016 12:09 - CONCLUSION: Normal hemodynamic profile both carotids, characteristic of less than 50%% stenosis. Nikita Aguilar MD Physical Exam CONSTITUTIONAL/GENERAL: This is an obese male patient, looks lethargic, sick morbidly obese TUBES/LINES/DRAINS: SKIN: No jaundice, rashes, or lesions. EYES: Pupils equal and round and reactive. Extraocular motions intact. No scleral icterus. No injection or drainage. Fundi not examined. ENT: Hearing grossly normal. Nose without bleeding or purulent drainage. Throat without visible erythema, exudates, masses, or lesions. CARDIOVASCULAR: Regular rate and rhythm without murmurs, gallops, or rubs. No JVD. Peripheral pulses symmetric. RESPIRATORY/CHEST: Symmetric, unlabored respirations. Clear to auscultation. Breath sounds equal bilaterally. No wheezes, rales, or rhonchi. GASTROINTESTINAL: Abdomen soft, non-tender, quite distended. No hepato- splenomegaly, or palpable masses. No guarding. Bowel sounds present. Colostomy in place with large ampount of liquid stool : ilea conduit in RLQ with healy in , pink, no UOP MUSCULOSKELETAL: Extremities without clubbing, cyanosis, quite prominent 3+ edema. NEUROLOGICAL: Fully awake and alert . Paraplegia @ b/l BUE motor 5-/5 PSYCHIATRIC: No obvious anxiety/depression. no apparent hallucinations or other psychotic thought process. Assessment & Plan Remarks ARF/CKD - both obstructive and ATN 2/2 low BP contributing - pt is anuric COmplicated UTI, ESBL+ E.coli, PSAE ; repet urine clx negative (prelim) C.diff - appears to stool less ? new sepsis dc Primaxin, cont oral vancomycin x 14 days fu blood clx Mayela Salazar MD Dec 05, 2016 11:06
[2016-12-05] MEDS: ACETAMINOPHEN 325 MG TAB PO PRN (12:11)
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
--- NOTE | 2016-12-05 13:43 | RADRPT ---
EXAM DATE/TIME: 12/05/2016 11:01 [facility] COMPARISON: CT ABDOMEN & PELVIS W/O CONTRAST, December 02, 2016, 22:21. INDICATIONS : Obstruction in right kidney. DOSE: 21.5 mCi Tc99m DTPA IV MEDICATION: 40 mg Lasix IV MEDICAL HISTORY : Renal failure, chrnoic. Hypertension. Cardiovascular disease SURGICAL HISTORY : Nephrectomy, left. ENCOUNTER: Initial ACUITY: 1 day PAIN SCALE: 2/10 LOCATION: Right flank TECHNIQUE: Dynamic images were performed in the posterior projection for a total of 28 minutes. FINDINGS: FLOW: There is mildly delayed enhancement of the right kidney with less enhancement than typically seen. Le ft kidney is absent. EXCRETION: There is normal uptake of the radiopharmaceutical within the right kidney but after 27 minutes no exc retion or drainage is visualized. Following Lasix administration, no excretion or drainage is appreci ated. CONCLUSION: 1. Poor perfusion of the right kidney. Uptake is visualized but no excretion is seen after 27 minutes of imaging and following Lasix administration. Findings could be secondary to intrinsic renal dysfun ction or high-grade obstruction. 2. Surgically absent left kidney. Rafi Connolly MD on December 05, 2016 at 13:39 Board Certified Radiologist. This report was verified electronically.
[2016-12-05 16:39] LABS: BLOOD, URINE NEG (NEG); GLUCOSE,URINE NEG (NEG); KETONE, URINE 10 mg/dL (NEG); MUCUS URINE FEW /lpf (OCC); NITRITE,URINE NEG (NEG); PH, URINE 7.5 (5.0-8.5); URINE COLOR YELLOW (YELLW/STRAW)
[2016-12-05 16:43] LABS: COMMENT (UR) CULT NOT INDICATED; CULTURE IF INDICATED CULT NOT INDICATED
[2016-12-05] MEDS: ATORVASTATIN 40 MG TAB PO SCH (21:14)
[2016-12-06] VITALS (13 sets, daily range): BP systolic 118–170; BP diastolic 57–74; PULSE 53–67; RESP 16–30; TEMP 98.2–98.7; O2SAT 94–99
[2016-12-06 02:37] LABS: C. DIFF EPI 027 PRESUMPTIVE NEGATIVE (NEGATIVE)
[2016-12-06] MEDS: SODIUM BICARBONATE 8.4% INJ 75 MEQ in SODIUM CHLOR 0.9% 1000 ML INJ 1,000 ML IV SCH ×3 (02:43→21:41)
[2016-12-06] MEDS: ACETAMINOPHEN 325 MG TAB PO PRN ×2 (02:43→20:51)
[2016-12-06] MEDS: CHLORHEXIDINE GLUCONATE 2 % 1 PACK (2 CLOTHS)(taper/protocol) TOPICAL SCH (04:00)
[2016-12-06 06:08] LABS: BICARBONATE 26.5 MEQ/L (21.0-32.0)
[2016-12-06 06:11] LABS: POTASSIUM 2.9 MEQ/L (3.5-5.1)
[2016-12-06 06:28] LABS: CALCIUM-PROTEIN CORRECTED 6.7 MG/DL (8.5-10.1)
--- NOTE | 2016-12-06 07:59 | HHI.NPPN ---
Subjective History of Present Illness 61-year-old male known to me from before with past medical history of chronic kidney disease and single kidney, history of peripheral vascular disease, hypertension, hyperlipidemia, partial small-bowel obstruction, history of paraplegia, history of neobladder formation with neurogenic bladder, who was admitted at [facility] for rehabilitation. I saw the patient when he was admitted in September and at that time he had creatinine as high as 6.3 and it improved to around 2.2 to 2.4 and it has been gradually going up. Additional Remarks Patient is alert, feeling tired, Review of Systems General Constitutional: Fatigue Respiratory Lungs: SOB Cardiovascular Cardiac: Edema, BAEZ Objective Data Data Vital Signs Date Time Temp Pulse Resp B/P (MAP) Pulse Ox O2 Delivery O2 Flow Rate FiO2 12/06/16 06:09 16 12/06/16 06:00 55 12/06/16 04:00 53 12/06/16 04:00 98.7 53 16 147/63 (91) 98 12/06/16 03:31 99 25 12/06/16 02:00 60 12/06/16 00:00 59 12/06/16 00:00 98.7 59 17 118/57 (77) 94 12/05/16 22:17 94 25 12/05/16 22:12 97 25 12/05/16 22:00 66 12/05/16 20:48 96 Nasal Cannula 4.00 12/05/16 20:00 99.0 64 26 127/68 (87) 94 12/05/16 20:00 64 12/05/16 20:00 64 12/05/16 18:00 72 12/05/16 16:00 97.8 63 12 123/70 (87) 99 12/05/16 16:00 63 12/05/16 14:00 64 12/05/16 12:00 97.6 69 22 133/72 (92) 99 12/05/16 12:00 69 12/05/16 12:00 69 12/05/16 10:00 62 12/05/16 08:00 64 12/05/16 08:00 97.4 64 14 110/57 (74) 97 12/05/16 08:00 98.0 64 14 110/57 (74) 97 -: 12/04/16 1254 12/06/16 0509 Microbiology 12/06/16 Stool Occult Blood (ALLIE), Received Pending Physical Exam General Appearance: Well Nourished, No Acute Distress, Comfortable Eyes Eye Exam: Pupils Equal Throat Throat Exam: Oral Mucosa [place] & Moist Pulmonary Resp Exam: No Distress, Rhonchi, Decreased Bases, Diminished Breath Sounds Cardiology CV Exam: Regular Gastrointestinal/Abdomen GI Exam: Soft, Non-Tender, Distended Extremeties Extremities Exam: Moderate Edema, Pitting Edema Neurologic Neuro Exam: Alert, Awake, Oriented Psychiatric Psych Exam: Appropriate Responses Assessment/Plan Assessment Summary: VIJAY/Acute Renal Failure, Hypotension, CKD Stage IV Electrolyte Assessment: Metabolic Acidosis Problem List: (1) Anemia in chronic kidney disease ICD Codes: N18.9 - Chronic kidney disease, unspecified; D63.1 - Anemia in chronic kidney disease Status: Acute (2) Hypertension ICD Codes: I10 - Essential (primary) hypertension Status: Chronic (3) Acidemia ICD Codes: E87.2 - Acidosis Status: Acute (4) Acute kidney injury ICD Codes: N17.9 - Acute kidney failure, unspecified Status: Acute (5) Paraplegia ICD Codes: G82.20 - Paraplegia Status: Chronic (6) Paraplegia ICD Codes: G82.20 - Paraplegia Status: Acute (7) Acute on chronic kidney failure ICD Codes: N17.9 - Acute kidney failure, unspecified; N18.9 - Chronic kidney disease, unspecified Status: Chronic Plan Patient has increase in BUN and Creatinine. Also has metabolic acidosis. Seen by urology, possibly will need Nephrostomy. BP is improving. Patient has moderate Hydronephrosis on rt. side, has single kidney. It is medically necessary to improve renal function. Now will go for Nephrostomy. a Jean will be placed on Urostomy as retain urine UOP 3.6 L Low K/Ca replaced give additional k Dr. Goldman to follow Salas Dsouza MD Dec 06, 2016 07:59
[2016-12-06] MEDS ORDERED: POTASSIUM CHLORIDE 25 MEQ EFFERVESCENT TAB PO ONE (08:00)
[2016-12-06] MEDS ORDERED: CALCIUM GLUCONATE INJ 2 GM in DEXTROSE 5% IN WATER 100ML INJ 100 ML IV ONE ×2 (08:00)
[2016-12-06] MEDS ORDERED: POTASSIUM CHLOR 20 MEQ PREMIX 100 ML IV ONE (08:00)
[2016-12-06] MEDS: LACTOBACILLUS ACIDOPHILUS TAB PO SCH ×3 (08:45→16:40)
[2016-12-06] MEDS: POTASSIUM CHLOR 20 MEQ PREMIX 100 ML IV SCH ×2 (08:45→12:11)
[2016-12-06] MEDS: ASCORBIC ACID 500 MG TAB PO SCH (08:46)
[2016-12-06] MEDS: VANCOMYCIN 500 MG VIAL (FOR ORAL USE ONLY) PO SCH ×4 (08:46→20:50)
[2016-12-06] MEDS: FUROSEMIDE 20 MG TAB PO SCH (08:46)
[2016-12-06] MEDS: CALCITRIOL 0.25 MCG CAP PO SCH (08:46)
[2016-12-06] MEDS: METOPROLOL SUCCINATE 50 MG EXTENDED RELEASE TAB PO SCH (08:46)
[2016-12-06] MEDS: hydrALAZINE HCL 100 MG TAB PO SCH ×2 (08:47→20:50)
[2016-12-06] MEDS: FERROUS SULFATE 325 MG (65 MG ELEMENTAL IRON) TAB PO SCH ×3 (08:47→16:40)
[2016-12-06] MEDS: PANTOPRAZOLE SOD 40 MG DELAYED RELEASE TAB PO SCH (08:47)
[2016-12-06] MEDS: ASPIRIN EC 81 MG TABEC PO SCH (08:47)
[2016-12-06] MEDS: MULTIVITAMIN TAB PO SCH (08:47)
[2016-12-06] MEDS: CYANOCOBALAMIN 1,000 MCG TAB PO SCH (08:47)
[2016-12-06] MEDS: amLODIPine BESYLATE 5 MG TAB PO SCH (08:47)
[2016-12-06] MEDS: SODIUM CHLORIDE 0.9% FLUSH 10 ML FLUSH IV FLUSH SCH ×2 (08:48→20:51)
[2016-12-06] MEDS: SODIUM CHLORIDE 0.9% FLUSH 10 ML FLUSH IVF SCH (08:48)
[2016-12-06] MEDS: NYSTATIN 100,000 UNIT/GM CREAM 15 GM TOPICAL SCH ×2 (08:49→20:51)
[2016-12-06] MEDS: ACETAMINOPHEN/HYDROcodone 325 MG/5 MG TAB PO PRN ×3 (09:59→22:47)
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
--- NOTE | 2016-12-06 16:03 | HHI.IDPN ---
Subjective Subjective Remarks pt remains afebrile C.diff negative apparently pt was c/o pressure building sensation in RLQ: > 3.5 L was obtained from straight cathing of urostomy, UA was negative Stiooling slowed down to 100-200 cc /day repeat C.diff negatve Antibiotics vanco po Allergies: Coded Allergies: chlorpromazine (Verified Allergy, Severe, MUSCLE CONTRACTURES, 11/18/16) diatrizoate meglumine (Verified Allergy, Severe, Anaphylaxis, 11/18/16) gadobenic acid (Verified Allergy, Severe, Anaphylaxis, 11/18/16) gadodiamide (Verified Allergy, Severe, Anaphylaxis, 11/18/16) gadoteridol (Verified Allergy, Severe, Anaphylaxis, 11/18/16) iodixanol (Verified Allergy, Severe, Anaphylaxis, 11/18/16) iohexol (Verified Allergy, Severe, Anaphylaxis, 11/18/16) prochlorperazine (Verified Allergy, Severe, MUSCLE CONTRACTURES, 11/18/16) Objective . Vital Signs Date Time Temp Pulse Resp B/P (MAP) Pulse Ox O2 Delivery O2 Flow Rate FiO2 12/06/16 12:00 98.4 57 18 147/66 (93) 96 12/06/16 08:00 95 Nasal Cannula 6.00 12/06/16 08:00 98.6 54 19 141/66 (91) 96 12/06/16 06:09 16 12/06/16 06:00 55 12/06/16 04:00 53 12/06/16 04:00 98.7 53 16 147/63 (91) 98 12/06/16 03:31 99 25 12/06/16 02:00 60 12/06/16 00:00 59 12/06/16 00:00 98.7 59 17 118/57 (77) 94 12/05/16 22:17 94 25 12/05/16 22:12 97 25 12/05/16 22:00 66 12/05/16 20:48 96 Nasal Cannula 4.00 12/05/16 20:00 99.0 64 26 127/68 (87) 94 12/05/16 20:00 64 12/05/16 20:00 64 12/05/16 18:00 72 12/05/16 16:00 97.8 63 12 123/70 (87) 99 12/05/16 16:00 63 12/06/16 12/06/16 12/07/16 15:00 23:00 07:00 Intake Total 120 ml Balance 120 ml IV Total 120 ml . Laboratory Tests Test 12/05/16 04:41 12/06/16 05:09 Blood Urea Nitrogen 49 MG/DL 43 MG/DL Creatinine 5.78 MG/DL 4.59 MG/DL Random Glucose 71 MG/DL 89 MG/DL Total Protein 6.2 GM/DL 5.2 GM/DL Calcium Level 6.8 MG/DL 5.9 MG/DL Sodium Level 142 MEQ/L 142 MEQ/L Potassium Level 3.2 MEQ/L 2.9 MEQ/L Chloride Level 110 MEQ/L 108 MEQ/L Carbon Dioxide Level 17.9 MEQ/L 26.5 MEQ/L Anion Gap 14 MEQ/L 8 MEQ/L Estimat Glomerular Filtration Rate 10 ML/MIN 13 ML/MIN Protein Corrected Calcium 7.3 MG/DL 6.7 MG/DL Magnesium Level 1.5 MG/DL Microbiology Date/Time Source Procedure Growth Status 12/06/16 00:29 Stool Stool Stool Occult Blood (ALLIE) - Final HEMOCCULT NEGATIVE Complete Imaging Last Impressions Skull X-Ray 12/03/16 0000 Signed Impressions: Service Date/Time: November 18:15 - CONCLUSION: No foreign bodies to contraindicate MRI. Rafi Helton MD Cervical Spine MRI 12/03/16 0000 Signed Impressions: Service Date/Time: November 18:27 - CONCLUSION: Extremely limited exam due to low [id number], severe motion artifact and limited anatomic detail. Findings as above. Sammy Eduardo MD Abdomen/Pelvis CT 12/02/16 0800 Signed Impressions: Service Date/Time: Friday, December 02, 2016 22:21 - CONCLUSION: 1. Small to moderate bilateral effusions, increased from October 18 with compressive atelectasis in both lungs. 2. Stable mild to moderate right-sided hydronephrosis with ureteral diversion into a neobladder. Also left lower quadrant ostomy and right lower quadrant urostomy. 3. Postoperative left nephrectomy and cholecystectomy. No bowel obstruction, free air or free fluid. Previous fixation left hemipelvis and proximal left femur. Nura Ramirez MD Carotid Artery Ultrasound 12/02/16 0000 Signed Impressions: Service Date/Time: Friday, December 02, 2016 12:09 - CONCLUSION: Normal hemodynamic profile both carotids, characteristic of less than 50%% stenosis. Nikita Aguilar MD Physical Exam CONSTITUTIONAL/GENERAL: This is an obese male patient, looks lethargic, sick morbidly obese TUBES/LINES/DRAINS: SKIN: No jaundice, rashes, or lesions. EYES: Pupils equal and round and reactive. Extraocular motions intact. No scleral icterus. No injection or drainage. Fundi not examined. ENT: Hearing grossly normal. Nose without bleeding or purulent drainage. Throat without visible erythema, exudates, masses, or lesions. CARDIOVASCULAR: Regular rate and rhythm without murmurs, gallops, or rubs. No JVD. Peripheral pulses symmetric. RESPIRATORY/CHEST: Symmetric, unlabored respirations. Clear to auscultation. Breath sounds equal bilaterally. No wheezes, rales, or rhonchi. GASTROINTESTINAL: Abdomen soft, non-tender, quite distended. No hepato- splenomegaly, or palpable masses. No guarding. Bowel sounds present. Colostomy in place with large ampount of liquid stool : ilea conduit in RLQ with healy in , pink, draining large amount of failry clear urine MUSCULOSKELETAL: Extremities without clubbing, cyanosis, quite prominent 3+ edema. R foot amputaion (TMA) NEUROLOGICAL: Fully awake and alert . Paraplegia @ b/l BUE motor 5-/5 PSYCHIATRIC: No obvious anxiety/depression. no apparent hallucinations or other psychotic thought process. Assessment & Plan Remarks ARF/CKD - post obstructive mechanism; now obstruction seemed to be relieved - pt is non oliguric COmplicated UTI, ESBL+ E.coli, PSAE ; repet urine clx negative (prelim) C.diff - improving No e/o new sepsis , cont oral vancomycin x 14 days will see as needed dw RN Carmela Salazar,Mayela Vega MD Dec 06, 2016 16:03
[2016-12-06] MEDS: MAGNESIUM SULFATE 1 GM PREMIX 100 ML IV SCH ×2 (16:38→17:45)
[2016-12-06] MEDS: ATORVASTATIN 40 MG TAB PO SCH (20:51)
[2016-12-07] VITALS (17 sets, daily range): BP systolic 155–184; BP diastolic 72–84; PULSE 51–65; RESP 16–30; TEMP 98.2–99.2; O2SAT 94–98
[2016-12-07] MEDS: CHLORHEXIDINE GLUCONATE 2 % 1 PACK (2 CLOTHS)(taper/protocol) TOPICAL SCH (04:00)
[2016-12-07] MEDS: SODIUM BICARBONATE 8.4% INJ 75 MEQ in SODIUM CHLOR 0.9% 1000 ML INJ 1,000 ML IV SCH (05:45)
[2016-12-07] MEDS: ACETAMINOPHEN/HYDROcodone 325 MG/5 MG TAB PO PRN ×3 (06:41→20:21)
[2016-12-07] MEDS: ASPIRIN EC 81 MG TABEC PO SCH (08:21)
[2016-12-07] MEDS: CALCITRIOL 0.25 MCG CAP PO SCH (08:21)
[2016-12-07] MEDS: LACTOBACILLUS ACIDOPHILUS TAB PO SCH ×3 (08:22→16:40)
[2016-12-07] MEDS: hydrALAZINE HCL 100 MG TAB PO SCH ×2 (08:22→20:20)
[2016-12-07] MEDS: PANTOPRAZOLE SOD 40 MG DELAYED RELEASE TAB PO SCH (08:22)
[2016-12-07] MEDS: ASCORBIC ACID 500 MG TAB PO SCH (08:22)
[2016-12-07] MEDS: MULTIVITAMIN TAB PO SCH (08:22)
[2016-12-07] MEDS: CYANOCOBALAMIN 1,000 MCG TAB PO SCH (08:22)
[2016-12-07] MEDS: FUROSEMIDE 20 MG TAB PO SCH (08:22)
[2016-12-07] MEDS: NYSTATIN 100,000 UNIT/GM CREAM 15 GM TOPICAL SCH ×2 (08:23→20:22)
[2016-12-07] MEDS: FERROUS SULFATE 325 MG (65 MG ELEMENTAL IRON) TAB PO SCH ×3 (08:23→16:41)
[2016-12-07] MEDS: amLODIPine BESYLATE 5 MG TAB PO SCH (08:23)
[2016-12-07] MEDS: VANCOMYCIN 500 MG VIAL (FOR ORAL USE ONLY) PO SCH ×4 (08:23→20:20)
[2016-12-07] MEDS: SODIUM CHLORIDE 0.9% FLUSH 10 ML FLUSH IVF SCH (08:23)
[2016-12-07] MEDS: SODIUM CHLORIDE 0.9% FLUSH 10 ML FLUSH IV FLUSH SCH ×2 (08:23→20:19)
[2016-12-07] MEDS: METOPROLOL SUCCINATE 50 MG EXTENDED RELEASE TAB PO SCH (08:23)
[2016-12-07 09:11] LABS: BICARBONATE 26.3 MEQ/L (21.0-32.0)
[2016-12-07 09:27] LABS: CALCIUM-PROTEIN CORRECTED 7.7 MG/DL (8.5-10.1)
[2016-12-07 09:33] LABS: POTASSIUM 2.8 MEQ/L (3.5-5.1)
[2016-12-07] MEDS ORDERED: BACLOFEN 10 MG TAB PO SCH (09:45)
[2016-12-07] MEDS: POTASSIUM CHLORIDE 20 MEQ CONTROLLED RELEASE TAB PO SCH ×2 (10:31→13:04)
[2016-12-07] MEDS ORDERED: PILL SPLITTER OTHER PRN (11:00)
[2016-12-07] MEDS ORDERED: BACLOFEN 10 MG TAB PO ONE (11:00)
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
--- NOTE | 2016-12-07 15:54 | HHI.NPPN ---
Subjective History of Present Illness 61-year-old male known to me from before with past medical history of chronic kidney disease and single kidney, history of peripheral vascular disease, hypertension, hyperlipidemia, partial small-bowel obstruction, history of paraplegia, history of neobladder formation with neurogenic bladder, who was admitted at [facility] for rehabilitation. I saw the patient when he was admitted in September and at that time he had creatinine as high as 6.3 and it improved to around 2.2 to 2.4 and it has been gradually going up. Additional Remarks Patient is alert, feeling tired, and has SOB, with increase swelling. Review of Systems General Constitutional: Fatigue Respiratory Lungs: SOB Cardiovascular Cardiac: Edema, BAEZ Objective Data Data 12/07/16 12/08/16 19:00 07:00 Intake Total 500 ml Balance 500 ml IV Total 500 ml Vital Signs Date Time Temp Pulse Resp B/P (MAP) Pulse Ox O2 Delivery O2 Flow Rate FiO2 12/07/16 14:00 63 12/07/16 12:00 63 12/07/16 12:00 99.2 63 24 169/79 (109) 95 12/07/16 11:22 59 12/07/16 08:00 99.0 61 20 172/78 (109) 97 12/07/16 08:00 61 12/07/16 08:00 Nasal Cannula 3.00 12/07/16 06:42 96 Nasal Cannula 2.00 12/07/16 06:00 64 12/07/16 04:10 95 25 12/07/16 04:00 98.2 52 16 168/72 (104) 95 12/07/16 04:00 52 12/07/16 02:00 51 12/07/16 00:42 98 25 12/07/16 00:00 59 12/07/16 00:00 98.5 60 16 164/73 (103) 94 12/06/16 23:54 18 12/06/16 23:54 18 12/06/16 22:00 59 12/06/16 20:00 61 12/06/16 20:00 98.2 61 30 170/74 (106) 98 12/06/16 19:00 94 Nasal Cannula 6.00 12/06/16 18:00 66 12/06/16 16:00 59 12/06/16 16:00 98.6 59 22 150/68 (95) 96 -: 12/04/16 1254 12/07/16 1142 Physical Exam General Appearance: Well Nourished, No Acute Distress, Comfortable Eyes Eye Exam: Pupils Equal Throat Throat Exam: Oral Mucosa [place] & Moist Pulmonary Resp Exam: No Distress, Rhonchi, Decreased Bases, Diminished Breath Sounds Cardiology CV Exam: Regular Gastrointestinal/Abdomen GI Exam: Soft, Non-Tender, Distended GI Remarks ileal conduit opening. Extremeties Extremities Exam: Moderate Edema, Pitting Edema Neurologic Neuro Exam: Alert, Awake, Oriented Psychiatric Psych Exam: Appropriate Responses Assessment/Plan Assessment Summary: VIJAY/Acute Renal Failure, Hypotension, CKD Stage IV Electrolyte Assessment: Metabolic Acidosis Problem List: (1) Anemia in chronic kidney disease ICD Codes: N18.9 - Chronic kidney disease, unspecified; D63.1 - Anemia in chronic kidney disease Status: Acute (2) Hypertension ICD Codes: I10 - Essential (primary) hypertension Status: Chronic (3) Acidemia ICD Codes: E87.2 - Acidosis Status: Acute (4) Acute kidney injury ICD Codes: N17.9 - Acute kidney failure, unspecified Status: Acute (5) Paraplegia ICD Codes: G82.20 - Paraplegia Status: Chronic (6) Paraplegia ICD Codes: G82.20 - Paraplegia Status: Acute (7) Acute on chronic kidney failure ICD Codes: N17.9 - Acute kidney failure, unspecified; N18.9 - Chronic kidney disease, unspecified Status: Chronic Plan Patient has increase in BUN and Creatinine. Also has metabolic acidosis. Seen by urology, possibly have obstructive uropathy. BP is improving. Patient has moderate Hydronephrosis on rt. side, has single kidney. Renal scan did not show uptake, possible due to poor renal function. HD was done on Sat. Now Creatinine is almost same. K was low and replaced. D/C IVF and start IV Lasix. Follow BMP in AM and possible HD. Lynsey Goldman MD Dec 07, 2016 15:54
[2016-12-07] MEDS: cloNIDine HCL 0.1 MG TAB PO PRN (16:40)
[2016-12-07] MEDS: FUROSEMIDE 40 MG/4 ML VIAL IV PUSH SCH (16:41)
--- NOTE | 2016-12-07 20:14 | RADRPT ---
EXAM DATE/TIME: 12/07/2016 19:48 [place] COMPARISON: CHEST SINGLE AP, November 28, 2016, 12:53. INDICATIONS : Shortness of breath. MEDICAL HISTORY : Myocardial infarction. Hypercholesterolemia. Renal failure, chronic. SURGICAL HISTORY : Cervical fusion. CABG. Coronary artery stent ENCOUNTER: Subsequent ACUITY: 1 week PAIN SCORE: 0/10 LOCATION: Bilateral chest FINDINGS: A single view of the chest demonstrates cardiomegaly with pulmonary vascular congestion. Bibasilar de nsities. Previous CABG. Right jugular central line with tip in the SVC. No pneumothorax. Osseous str uctures are intact. CONCLUSION: Cardiomegaly with pulmonary vascular congestion and interstitial edema. Alok Upton MD on December 07, 2016 at 20:06 Board Certified Radiologist. This report was verified electronically.
[2016-12-07] MEDS: ATORVASTATIN 40 MG TAB PO SCH (20:20)
[2016-12-07] MEDS: MELATONIN 5 MG TAB PO PRN (22:34)
[2016-12-08] VITALS (15 sets, daily range): BP systolic 134–172; BP diastolic 67–77; PULSE 52–78; RESP 16–27; TEMP 98.2–98.7; O2SAT 97–100
[2016-12-08 00:08] LABS: BLOOD GAS BASE EXCESS -0.6 mmol/L (-2-2); BLOOD GAS HCO3 25 mmol/L (22-26); BLOOD GAS METHEMOGLOBIN 1.1 % (0-2); BLOOD GAS O2 HGB SATURATION 95 % (90-100); BLOOD GAS OXYGEN CONTENT 11.6 Vol % (12.0-20.0); BLOOD GAS PCO2 51 mmHg (38-42); BLOOD GAS PO2 106 mmHg (61-120); BLOOD GAS TOTAL HGB 8.6 G/DL (12.0-16.0); TEMP CORR TO 98.6
[2016-12-08 00:10] LABS: CRITICAL VALUE YES; LITER FLOW 3 L/M; OXYGEN DEVICE NASAL CANNULA
[2016-12-08 00:11] LABS: DRAW SITE RT RADIAL; NUMBER OF ARTERIAL PUNCTURES 1; STAT NO; ULNAR PULSE PRESENT
[2016-12-08] MEDS: ACETAMINOPHEN/HYDROcodone 325 MG/5 MG TAB PO PRN ×4 (02:33→22:08)
[2016-12-08] MEDS: amLODIPine BESYLATE 5 MG TAB PO SCH (08:30)
[2016-12-08] MEDS: CYANOCOBALAMIN 1,000 MCG TAB PO SCH (08:30)
[2016-12-08] MEDS: hydrALAZINE HCL 100 MG TAB PO SCH ×2 (08:30→20:43)
[2016-12-08] MEDS: PANTOPRAZOLE SOD 40 MG DELAYED RELEASE TAB PO SCH (08:30)
[2016-12-08] MEDS: CALCITRIOL 0.25 MCG CAP PO SCH (08:30)
[2016-12-08] MEDS: FERROUS SULFATE 325 MG (65 MG ELEMENTAL IRON) TAB PO SCH ×3 (08:31→18:00)
[2016-12-08] MEDS: MULTIVITAMIN TAB PO SCH (08:31)
[2016-12-08] MEDS: METOPROLOL SUCCINATE 50 MG EXTENDED RELEASE TAB PO SCH (08:31)
[2016-12-08] MEDS: LACTOBACILLUS ACIDOPHILUS TAB PO SCH ×3 (08:31→18:00)
[2016-12-08] MEDS: ASCORBIC ACID 500 MG TAB PO SCH (08:32)
[2016-12-08] MEDS: VANCOMYCIN 500 MG VIAL (FOR ORAL USE ONLY) PO SCH ×4 (08:32→20:43)
[2016-12-08] MEDS: SODIUM CHLORIDE 0.9% FLUSH 10 ML FLUSH IVF SCH (08:33)
[2016-12-08] MEDS: SODIUM CHLORIDE 0.9% FLUSH 10 ML FLUSH IV FLUSH SCH (08:33)
[2016-12-08] MEDS: FUROSEMIDE 40 MG/4 ML VIAL IV PUSH SCH ×2 (08:33→18:00)
[2016-12-08] MEDS: ASPIRIN EC 81 MG TABEC PO SCH (08:34)
[2016-12-08] MEDS: NYSTATIN 100,000 UNIT/GM CREAM 15 GM TOPICAL SCH (08:34)
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
[2016-12-08] MEDS: cloNIDine HCL 0.1 MG TAB PO PRN (11:11)
[2016-12-08 11:40] LABS: BASOPHIL % 0.5 % (0.0-2.0); EOSINOPHIL # 0.2 TH/MM3 (0-0.4); HEMATOCRIT 26.5 % (39.0-51.0); HEMO FLAGS DIFF FINAL; LYMPH % 16.3 % (9.0-44.0); LYMPHOCYTE # 0.9 TH/MM3 (1.0-4.8); MEAN CELL VOLUME 85.2 FL (80.0-100.0); MEAN CORPUSCULAR HEMOGLOBIN 27.7 PG (27.0-34.0); MEAN CORPUSCULAR HGB CONC 32.5 % (32.0-36.0); MONO % 7.1 % (0.0-8.0); NEUT % 72.1 % (16.0-70.0); PLATELET COUNT 143 TH/MM3 (150-450); RED BLOOD COUNT 3.11 MIL/MM3 (4.50-5.90); RED CELL DISTRIBUTION WIDTH 19.4 % (11.6-17.2); WHITE BLOOD COUNT 5.6 TH/MM3 (4.0-11.0)
[2016-12-08 12:05] LABS: BICARBONATE 26.9 MEQ/L (21.0-32.0); POTASSIUM 3.4 MEQ/L (3.5-5.1)
[2016-12-08] MEDS: ACETAMINOPHEN 325 MG TAB PO PRN (12:36)
[2016-12-08] MEDS: HEPARIN SODIUM - IV 10,000 UNITS/10 ML VIAL PRN (13:32)
[2016-12-08] MEDS: GENTAMICIN SULFATE (DIALYSIS USE ONLY) 20 MG/2 ML VIAL IV PRN (13:32)
--- NOTE | 2016-12-08 13:55 | HHI.PR ---
Subjective Remarks alert no SOB at rest Objective Vital Signs Date Time Temp Pulse Resp B/P (MAP) Pulse Ox O2 Delivery O2 Flow Rate FiO2 12/08/16 12:00 57 12/08/16 12:00 98.4 57 24 172/74 (106) 97 12/08/16 10:00 58 12/08/16 09:45 22 12/08/16 08:00 59 12/08/16 08:00 98.3 59 27 168/77 (107) 99 12/08/16 08:00 98 Nasal Cannula 3.00 12/08/16 06:00 57 12/08/16 04:22 98 30 12/08/16 04:00 52 12/08/16 04:00 98.6 52 16 149/67 (94) 100 12/08/16 03:00 99 30 12/08/16 02:00 65 12/08/16 00:00 61 12/08/16 00:00 98.7 61 26 159/74 (102) 97 12/07/16 22:00 65 12/07/16 20:30 97 Nasal Cannula 3.00 12/07/16 20:00 98.6 61 30 160/77 (104) 98 12/07/16 20:00 61 12/07/16 19:00 97 Nasal Cannula 3.00 12/07/16 18:00 55 12/07/16 17:34 56 155/72 (99) 12/07/16 16:00 63 12/07/16 16:00 98.6 63 22 184/84 (117) 94 12/07/16 14:00 63 I/O 12/07/16 12/07/16 12/07/16 12/08/16 12/08/16 12/08/16 07:00 15:00 23:00 07:00 15:00 23:00 Intake Total 1253 ml 500 ml 960 ml 650 ml Output Total 500 ml 2150 ml 2250 ml Balance 753 ml 500 ml -1190 ml -1600 ml Intake Oral 960 ml 650 ml IV Total 741 ml 500 ml 0 ml Tube Feeding 512 ml Output Urine Total 500 ml 2100 ml 2200 ml Stool Total 50 ml 50 ml Result Diagram: 12/08/16 1058 12/08/16 1058 Objective Remarks Laboratory Tests Test 12/06/16 00:29 12/06/16 05:09 12/07/16 07:20 12/07/16 11:42 Blood Urea Nitrogen 43 MG/DL (7-18) 46 MG/DL (7-18) Creatinine 4.59 MG/DL (0.60-1.30) 4.43 MG/DL (0.60-1.30) Total Protein 5.2 GM/DL (6.4-8.2) 5.9 GM/DL (6.4-8.2) Calcium Level 5.9 MG/DL (8.5-10.1) 7.1 MG/DL (8.5-10.1) Potassium Level 2.9 MEQ/L (3.5-5.1) 2.8 MEQ/L (3.5-5.1) 3.4 MEQ/L (3.5-5.1) Chloride Level 108 MEQ/L (98-107) 112 MEQ/L (98-107) Estimat Glomerular Filtration Rate 13 ML/MIN (>89) 14 ML/MIN (>89) Protein Corrected Calcium 6.7 MG/DL (8.5-10.1) 7.7 MG/DL (8.5-10.1) Sodium Level 147 MEQ/L (136-145) Test 12/07/16 23:48 12/08/16 10:58 Arterial Blood pH 7.31 (7.380-7.420) Arterial Blood Partial Pressure CO2 51 mmHg (38-42) Arterial Blood Oxygen Content 11.6 Vol % (12.0-20.0) Blood Gas Hemoglobin 8.6 G/DL (12.0-16.0) Red Blood Count 3.11 MIL/MM3 (4.50-5.90) Hemoglobin 8.6 GM/DL (13.0-17.0) Hematocrit 26.5 % (39.0-51.0) Red Cell Distribution Width 19.4 % (11.6-17.2) Platelet Count 143 TH/MM3 (150-450) Neutrophils (%) (Auto) 72.1 % (16.0-70.0) Lymphocytes # (Auto) 0.9 TH/MM3 (1.0-4.8) Blood Urea Nitrogen 49 MG/DL (7-18) Creatinine 4.30 MG/DL (0.60-1.30) Random Glucose 164 MG/DL (74-106) Calcium Level 8.0 MG/DL (8.5-10.1) Potassium Level 3.4 MEQ/L (3.5-5.1) Chloride Level 110 MEQ/L (98-107) Estimat Glomerular Filtration Rate 14 ML/MIN (>89) Assessment and Plan Assessment and Plan respiratory failure, improving renal failure improving ayaz plan o2 as needed dialysis npsg post d/c Discharge Planning GENERAL: SKIN: Warm and dry. HEAD: Atraumatic. Normocephalic. EYES: Pupils equal and round. No scleral icterus. No injection or drainage. ENT: No nasal bleeding or discharge. Mucous membranes pink and moist. NECK: Trachea midline. No JVD. CARDIOVASCULAR: Regular rate and rhythm. RESPIRATORY: No accessory muscle use. Clear to auscultation. Breath sounds equal bilaterally. GASTROINTESTINAL: Abdomen soft, non-tender, nondistended. Hepatic and splenic margins not palpable. MUSCULOSKELETAL: Extremities without clubbing, cyanosis, or edema. No obvious deformities. NEUROLOGICAL: Awake and alert. No obvious cranial nerve deficits. Motor grossly within normal limits. Five out of 5 muscle strength in the arms and legs. Normal speech. PSYCHIATRIC: Appropriate mood and affect; insight and judgment normal. Kathy Chavez MD Dec 08, 2016 13:55
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
--- NOTE | 2016-12-08 15:04 | PD.WCN.NOT ---
Wound Consult Description: Consult received from Doctor Alonzo for wound management of L heel. Communicated with: MIKEY Fowler [facility] and call placed to Doctor Alonzo for orders Recommendation: Please cleanse apply dakins 1/2 strength soaked gauze on bed with dressing changes for 10 minutes on L heel wound. Remove dakins soaked gauze and pat dry. Apply optifoam AG gentle cut to fit wound size. Secure dressing with rolled gauze and tape. Change dressing every other day. Additional Information: Patient seen on 5th floor [facility] for evaluation of wound to L heel. Patient is known to inpatient wound care from previous admission. Removed heel raiser boot and bordered gauze dressing in place to L heel to reveal stage 3 pressure injury.Wound bed presents with 100% pale red granulation tissue. Wound drainage is moderate, green/sanguinous with sweet, musty odor.Wound margins are well defined with maceration noted [id number] to 1 o'clock. Wound measures 3cm x 3.5cm x ~0.2cm. Cleansed wound with normal saline and pat dry. Applied optifoam AG dressing cut to fit over wound and secured dressing with rolled gauze and tape.Replaced heel raiser boot . Batsheva Turner [facility] Dec 08, 2016 15:04
--- NOTE | 2016-12-08 15:45 | HHI.NPPN ---
Subjective History of Present Illness 61-year-old male known to me from before with past medical history of chronic kidney disease and single kidney, history of peripheral vascular disease, hypertension, hyperlipidemia, partial small-bowel obstruction, history of paraplegia, history of neobladder formation with neurogenic bladder, who was admitted at [facility] for rehabilitation. I saw the patient when he was admitted in September and at that time he had creatinine as high as 6.3 and it improved to around 2.2 to 2.4 and it has been gradually going up. Additional Remarks Patient is alert, feeling tired, and has SOB, with increase swelling, seen during HD. Review of Systems General Constitutional: Fatigue Respiratory Lungs: SOB Cardiovascular Cardiac: Edema, BAEZ Objective Data Data Vital Signs Date Time Temp Pulse Resp B/P (MAP) Pulse Ox O2 Delivery O2 Flow Rate FiO2 12/08/16 13:50 20 12/08/16 12:00 57 12/08/16 12:00 98.4 57 24 172/74 (106) 97 12/08/16 10:00 58 12/08/16 09:45 22 12/08/16 08:00 59 12/08/16 08:00 98.3 59 27 168/77 (107) 99 12/08/16 08:00 98 Nasal Cannula 3.00 12/08/16 06:00 57 12/08/16 04:22 98 30 12/08/16 04:00 52 12/08/16 04:00 98.6 52 16 149/67 (94) 100 12/08/16 03:00 99 30 12/08/16 02:00 65 12/08/16 00:00 61 12/08/16 00:00 98.7 61 26 159/74 (102) 97 12/07/16 22:00 65 12/07/16 20:30 97 Nasal Cannula 3.00 12/07/16 20:00 98.6 61 30 160/77 (104) 98 12/07/16 20:00 61 12/07/16 19:00 97 Nasal Cannula 3.00 12/07/16 18:00 55 12/07/16 17:34 56 155/72 (99) 12/07/16 16:00 63 12/07/16 16:00 98.6 63 22 184/84 (117) 94 -: 12/08/16 1058 12/08/16 1058 Physical Exam General Appearance: Well Nourished, No Acute Distress, Comfortable Eyes Eye Exam: Pupils Equal Throat Throat Exam: Oral Mucosa [place] & Moist Pulmonary Resp Exam: No Distress, Rhonchi, Decreased Bases, Diminished Breath Sounds Cardiology CV Exam: Regular Gastrointestinal/Abdomen GI Exam: Soft, Non-Tender, Distended GI Remarks ileal conduit opening. Extremeties Extremities Exam: Moderate Edema, Pitting Edema Neurologic Neuro Exam: Alert, Awake, Oriented Psychiatric Psych Exam: Appropriate Responses Assessment/Plan Assessment Summary: VIJAY/Acute Renal Failure, Hypotension, CKD Stage IV Electrolyte Assessment: Metabolic Acidosis Problem List: (1) Anemia in chronic kidney disease ICD Codes: N18.9 - Chronic kidney disease, unspecified; D63.1 - Anemia in chronic kidney disease Status: Acute (2) Hypertension ICD Codes: I10 - Essential (primary) hypertension Status: Chronic (3) Acidemia ICD Codes: E87.2 - Acidosis Status: Acute (4) Acute kidney injury ICD Codes: N17.9 - Acute kidney failure, unspecified Status: Acute (5) Paraplegia ICD Codes: G82.20 - Paraplegia Status: Chronic (6) Paraplegia ICD Codes: G82.20 - Paraplegia Status: Acute (7) Acute on chronic kidney failure ICD Codes: N17.9 - Acute kidney failure, unspecified; N18.9 - Chronic kidney disease, unspecified Status: Chronic Plan Patient has increase in BUN and Creatinine. Also has metabolic acidosis. Seen by urology, possibly have obstructive uropathy. BP is improving. Patient has moderate Hydronephrosis on rt. side, has single kidney. Renal scan did not show uptake, possible due to poor renal function. HD now, remove fluid as tolerated. Lynsey Goldman MD Dec 08, 2016 15:45
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
[2016-12-08] MEDS ORDERED: ACETAMINOPHEN/HYDROcodone 325 MG/5 MG TAB PO ONE (20:00)
[2016-12-08] MEDS: ATORVASTATIN 40 MG TAB PO SCH (20:43)
[2016-12-09] VITALS (15 sets, daily range): BP systolic 92–165; BP diastolic 51–75; PULSE 53–78; RESP 15–24; TEMP 98–99.7; O2SAT 94–99
[2016-12-09] MEDS: MELATONIN 5 MG TAB PO PRN (00:43)
[2016-12-09] MEDS: ACETAMINOPHEN/HYDROcodone 325 MG/5 MG TAB PO PRN ×2 (04:46→11:08)
[2016-12-09] MEDS: SODIUM CHLORIDE 0.9% FLUSH 10 ML FLUSH IVF SCH (09:00)
[2016-12-09] MEDS: NYSTATIN 100,000 UNIT/GM CREAM 15 GM TOPICAL SCH ×2 (09:00→21:00)
[2016-12-09] MEDS: SODIUM CHLORIDE 0.9% FLUSH 10 ML FLUSH IV FLUSH SCH ×2 (09:00→20:59)
--- NOTE | 2016-12-09 09:47 | HHI.NPPN ---
Subjective History of Present Illness 61-year-old male known to me from before with past medical history of chronic kidney disease and single kidney, history of peripheral vascular disease, hypertension, hyperlipidemia, partial small-bowel obstruction, history of paraplegia, history of neobladder formation with neurogenic bladder, who was admitted at [facility] for rehabilitation. I saw the patient when he was admitted in September and at that time he had creatinine as high as 6.3 and it improved to around 2.2 to 2.4 and it has been gradually going up. Additional Remarks Patient is alert, still with increase swelling and edema, not in distress. Review of Systems General Constitutional: Fatigue Respiratory Lungs: SOB Cardiovascular Cardiac: Edema, BAEZ Objective Data Data Vital Signs Date Time Temp Pulse Resp B/P (MAP) Pulse Ox O2 Delivery O2 Flow Rate FiO2 12/09/16 08:08 96 Nasal Cannula 3.00 12/09/16 06:00 53 12/09/16 04:00 53 12/09/16 04:00 98.0 53 15 160/69 (99) 97 12/09/16 02:00 72 12/09/16 00:00 98.0 78 16 92/51 (65) 96 12/09/16 00:00 72 12/09/16 00:00 18 12/08/16 22:00 74 12/08/16 20:00 98.2 62 26 159/69 (99) 98 12/08/16 20:00 78 12/08/16 19:45 99 Nasal Cannula 3.00 12/08/16 19:00 97 Nasal Cannula 3.00 12/08/16 18:00 58 12/08/16 16:00 98.4 59 21 134/72 (92) 97 12/08/16 16:00 59 12/08/16 14:00 58 12/08/16 13:50 20 12/08/16 12:00 57 12/08/16 12:00 98.4 57 24 172/74 (106) 97 12/08/16 10:00 58 -: 12/08/16 1058 12/08/16 1058 Physical Exam General Appearance: Well Nourished, No Acute Distress, Comfortable Eyes Eye Exam: Pupils Equal Throat Throat Exam: Oral Mucosa [place] & Moist Pulmonary Resp Exam: No Distress, Rhonchi, Decreased Bases, Diminished Breath Sounds Cardiology CV Exam: Regular Gastrointestinal/Abdomen GI Exam: Soft, Non-Tender, Distended GI Remarks ileal conduit opening. Extremeties Extremities Exam: Moderate Edema, Pitting Edema Neurologic Neuro Exam: Alert, Awake, Oriented Psychiatric Psych Exam: Appropriate Responses Assessment/Plan Assessment Summary: VIJAY/Acute Renal Failure, Hypotension, CKD Stage IV Electrolyte Assessment: Metabolic Acidosis Problem List: (1) Anemia in chronic kidney disease ICD Codes: N18.9 - Chronic kidney disease, unspecified; D63.1 - Anemia in chronic kidney disease Status: Acute (2) Hypertension ICD Codes: I10 - Essential (primary) hypertension Status: Chronic (3) Acidemia ICD Codes: E87.2 - Acidosis Status: Acute (4) Acute kidney injury ICD Codes: N17.9 - Acute kidney failure, unspecified Status: Acute (5) Paraplegia ICD Codes: G82.20 - Paraplegia Status: Chronic (6) Paraplegia ICD Codes: G82.20 - Paraplegia Status: Acute (7) Acute on chronic kidney failure ICD Codes: N17.9 - Acute kidney failure, unspecified; N18.9 - Chronic kidney disease, unspecified Status: Chronic Plan Patient has increase in BUN and Creatinine. Also has metabolic acidosis. Seen by urology, possibly have obstructive uropathy. BP is improving. Patient has moderate Hydronephrosis on rt. side, has single kidney. Renal scan did not show uptake, possible due to poor renal function. HD done yesterday and also has good urine out put. On Lasix, follow the urine out put and BMP and decide about HD in AM. Told to restrict fluid intake. Lynsey Goldman MD Dec 09, 2016 09:47
[2016-12-09] MEDS: FERROUS SULFATE 325 MG (65 MG ELEMENTAL IRON) TAB PO SCH ×3 (09:54→18:37)
[2016-12-09] MEDS: LACTOBACILLUS ACIDOPHILUS TAB PO SCH ×3 (09:54→18:37)
[2016-12-09] MEDS: PANTOPRAZOLE SOD 40 MG DELAYED RELEASE TAB PO SCH (09:54)
[2016-12-09] MEDS: MULTIVITAMIN TAB PO SCH (09:54)
[2016-12-09] MEDS: VANCOMYCIN 500 MG VIAL (FOR ORAL USE ONLY) PO SCH ×4 (09:54→20:58)
[2016-12-09] MEDS: ASCORBIC ACID 500 MG TAB PO SCH (09:54)
[2016-12-09] MEDS: amLODIPine BESYLATE 5 MG TAB PO SCH (09:54)
[2016-12-09] MEDS: hydrALAZINE HCL 100 MG TAB PO SCH ×2 (09:54→20:59)
[2016-12-09] MEDS: CYANOCOBALAMIN 1,000 MCG TAB PO SCH (09:54)
[2016-12-09] MEDS: METOPROLOL SUCCINATE 50 MG EXTENDED RELEASE TAB PO SCH (09:54)
[2016-12-09] MEDS: CALCITRIOL 0.25 MCG CAP PO SCH (09:54)
[2016-12-09] MEDS: ASPIRIN EC 81 MG TABEC PO SCH (09:54)
[2016-12-09] MEDS: FUROSEMIDE 40 MG/4 ML VIAL IV PUSH SCH ×2 (09:55→18:37)
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
--- NOTE | 2016-12-09 10:23 | RSPPFT ---
DATE OF PROCEDURE: 12/09/16 COMMENTS: Spirometry with FVC of 1.4, FEV1 of 0.9, FEV1/FVC ratio at 64%. A positive response to acutely inhaled bronchodilator noted. IMPRESSION: 1. Severe airways obstruction. 2. Positive and significant response to acutely inhaled bronchodilator.
--- NOTE | 2016-12-09 12:40 | HHI.PR ---
Subjective Remarks alert no SOB at rest Objective Vital Signs Date Time Temp Pulse Resp B/P (MAP) Pulse Ox O2 Delivery O2 Flow Rate FiO2 12/09/16 08:08 96 Nasal Cannula 3.00 12/09/16 08:00 64 12/09/16 07:00 97 Nasal Cannula 3.00 12/09/16 06:00 53 12/09/16 04:00 53 12/09/16 04:00 98.0 53 15 160/69 (99) 97 12/09/16 02:00 72 12/09/16 00:00 98.0 78 16 92/51 (65) 96 12/09/16 00:00 72 12/09/16 00:00 18 12/08/16 22:00 74 12/08/16 20:00 98.2 62 26 159/69 (99) 98 12/08/16 20:00 78 12/08/16 19:45 99 Nasal Cannula 3.00 12/08/16 19:00 97 Nasal Cannula 3.00 12/08/16 18:00 58 12/08/16 16:00 98.4 59 21 134/72 (92) 97 12/08/16 16:00 59 12/08/16 14:00 58 12/08/16 13:50 20 I/O 12/08/16 12/08/16 12/08/16 12/09/16 12/09/16 12/09/16 07:00 15:00 23:00 07:00 15:00 23:00 Intake Total 650 ml 720 ml 940 ml Output Total 2250 ml 7400 ml 1600 ml Balance -1600 ml -6680 ml -660 ml Intake Oral 650 ml 720 ml 650 ml IV Total 0 ml 290 ml Output Urine Total 2200 ml 2600 ml 1600 ml Stool Total 50 ml 300 ml Hemodialysis 4500 ml Result Diagram: 12/08/16 1058 12/08/16 1058 Objective Remarks Laboratory Tests Test 12/06/16 00:29 12/06/16 05:09 12/07/16 07:20 12/07/16 11:42 Blood Urea Nitrogen 43 MG/DL (7-18) 46 MG/DL (7-18) Creatinine 4.59 MG/DL (0.60-1.30) 4.43 MG/DL (0.60-1.30) Total Protein 5.2 GM/DL (6.4-8.2) 5.9 GM/DL (6.4-8.2) Calcium Level 5.9 MG/DL (8.5-10.1) 7.1 MG/DL (8.5-10.1) Potassium Level 2.9 MEQ/L (3.5-5.1) 2.8 MEQ/L (3.5-5.1) 3.4 MEQ/L (3.5-5.1) Chloride Level 108 MEQ/L (98-107) 112 MEQ/L (98-107) Estimat Glomerular Filtration Rate 13 ML/MIN (>89) 14 ML/MIN (>89) Protein Corrected Calcium 6.7 MG/DL (8.5-10.1) 7.7 MG/DL (8.5-10.1) Sodium Level 147 MEQ/L (136-145) Test 12/07/16 23:48 12/08/16 10:58 Arterial Blood pH 7.31 (7.380-7.420) Arterial Blood Partial Pressure CO2 51 mmHg (38-42) Arterial Blood Oxygen Content 11.6 Vol % (12.0-20.0) Blood Gas Hemoglobin 8.6 G/DL (12.0-16.0) Red Blood Count 3.11 MIL/MM3 (4.50-5.90) Hemoglobin 8.6 GM/DL (13.0-17.0) Hematocrit 26.5 % (39.0-51.0) Red Cell Distribution Width 19.4 % (11.6-17.2) Platelet Count 143 TH/MM3 (150-450) Neutrophils (%) (Auto) 72.1 % (16.0-70.0) Lymphocytes # (Auto) 0.9 TH/MM3 (1.0-4.8) Blood Urea Nitrogen 49 MG/DL (7-18) Creatinine 4.30 MG/DL (0.60-1.30) Random Glucose 164 MG/DL (74-106) Calcium Level 8.0 MG/DL (8.5-10.1) Potassium Level 3.4 MEQ/L (3.5-5.1) Chloride Level 110 MEQ/L (98-107) Estimat Glomerular Filtration Rate 14 ML/MIN (>89) Medications and IVs GENERAL: SKIN: Warm and dry. HEAD: Atraumatic. Normocephalic. EYES: Pupils equal and round. No scleral icterus. No injection or drainage. ENT: No nasal bleeding or discharge. Mucous membranes pink and moist. NECK: Trachea midline. No JVD. CARDIOVASCULAR: Regular rate and rhythm. RESPIRATORY: No accessory muscle use. Clear to auscultation. Breath sounds equal bilaterally. GASTROINTESTINAL: Abdomen soft, non-tender, nondistended. Hepatic and splenic margins not palpable. MUSCULOSKELETAL: Extremities without clubbing, cyanosis, or edema. No obvious deformities. NEUROLOGICAL: Awake and alert. No obvious cranial nerve deficits. Motor grossly within normal limits. Five out of 5 muscle strength in the arms and legs. Normal speech. PSYCHIATRIC: Appropriate mood and affect; insight and judgment normal. Assessment and Plan Assessment and Plan respiratory failure, improving renal failure improving ayaz plan o2 as needed dialysis npsg post d/c Kathy Chavez MD Dec 09, 2016 12:40
[2016-12-09] MEDS: oxyCODONE/ACETAMINOPHEN 5 MG/325 MG TAB PO PRN ×2 (14:04→18:37)
[2016-12-09 18:52] LABS: AUTOMATED NEUTROPHIL # 4.9 TH/MM3 (1.8-7.7); BASOPHIL % 0.4 % (0.0-2.0); EOSINOPHIL # 0.3 TH/MM3 (0-0.4); EOSINOPHIL % 4.4 % (0.0-4.0); HEMATOCRIT 26.5 % (39.0-51.0); HEMO FLAGS DIFF FINAL; LYMPH % 19.4 % (9.0-44.0); LYMPHOCYTE # 1.4 TH/MM3 (1.0-4.8); MEAN CELL VOLUME 83.9 FL (80.0-100.0); MEAN CORPUSCULAR HEMOGLOBIN 27.5 PG (27.0-34.0); MEAN CORPUSCULAR HGB CONC 32.7 % (32.0-36.0); MONO % 7.9 % (0.0-8.0); NEUT % 67.9 % (16.0-70.0); PLATELET COUNT 132 TH/MM3 (150-450); RED BLOOD COUNT 3.16 MIL/MM3 (4.50-5.90); RED CELL DISTRIBUTION WIDTH 18.7 % (11.6-17.2); WHITE BLOOD COUNT 7.2 TH/MM3 (4.0-11.0)
[2016-12-09 19:12] LABS: BICARBONATE 29.7 MEQ/L (21.0-32.0); POTASSIUM 3.7 MEQ/L (3.5-5.1)
[2016-12-09] MEDS: MORPHINE SULFATE 15 MG CONTROLLED RELEASE TAB PO SCH (20:58)
[2016-12-09] MEDS: ATORVASTATIN 40 MG TAB PO SCH (20:59)
[2016-12-10] VITALS (14 sets, daily range): BP systolic 125–159; BP diastolic 57–77; PULSE 58–75; RESP 15–27; TEMP 98–99.4; O2SAT 93–96
[2016-12-10] MEDS: oxyCODONE/ACETAMINOPHEN 5 MG/325 MG TAB PO PRN ×4 (00:31→21:50)
[2016-12-10] MEDS: MELATONIN 5 MG TAB PO PRN ×2 (01:31→21:49)
[2016-12-10] MEDS: VANCOMYCIN 500 MG VIAL (FOR ORAL USE ONLY) PO SCH ×4 (08:23→19:53)
[2016-12-10] MEDS: FUROSEMIDE 40 MG/4 ML VIAL IV PUSH SCH ×2 (08:23→16:45)
[2016-12-10] MEDS: ASPIRIN EC 81 MG TABEC PO SCH (08:24)
[2016-12-10] MEDS: CYANOCOBALAMIN 1,000 MCG TAB PO SCH (08:24)
[2016-12-10] MEDS: ASCORBIC ACID 500 MG TAB PO SCH (08:24)
[2016-12-10] MEDS: CALCITRIOL 0.25 MCG CAP PO SCH (08:24)
[2016-12-10] MEDS: METOPROLOL SUCCINATE 50 MG EXTENDED RELEASE TAB PO SCH (08:24)
[2016-12-10] MEDS: PANTOPRAZOLE SOD 40 MG DELAYED RELEASE TAB PO SCH (08:24)
[2016-12-10] MEDS: hydrALAZINE HCL 100 MG TAB PO SCH ×2 (08:24→19:53)
[2016-12-10] MEDS: FERROUS SULFATE 325 MG (65 MG ELEMENTAL IRON) TAB PO SCH ×3 (08:25→16:45)
[2016-12-10] MEDS: amLODIPine BESYLATE 5 MG TAB PO SCH (08:25)
[2016-12-10] MEDS: MULTIVITAMIN TAB PO SCH (08:25)
[2016-12-10] MEDS: MORPHINE SULFATE 15 MG CONTROLLED RELEASE TAB PO SCH ×2 (08:26→19:53)
[2016-12-10] MEDS: NYSTATIN 100,000 UNIT/GM CREAM 15 GM TOPICAL SCH ×2 (08:28→19:53)
[2016-12-10] MEDS: LACTOBACILLUS ACIDOPHILUS TAB PO SCH ×3 (08:28→16:45)
[2016-12-10] MEDS: SODIUM CHLORIDE 0.9% FLUSH 10 ML FLUSH IV FLUSH SCH ×2 (08:29→19:54)
[2016-12-10] MEDS: SODIUM CHLORIDE 0.9% FLUSH 10 ML FLUSH IVF SCH (08:29)
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
--- NOTE | 2016-12-10 16:11 | HHI.PR ---
Subjective Remarks alert no SOB at rest Objective Vital Signs Date Time Temp Pulse Resp B/P (MAP) Pulse Ox O2 Delivery O2 Flow Rate FiO2 12/10/16 16:00 66 12/10/16 14:00 65 12/10/16 12:00 99.3 64 27 125/57 (79) 93 12/10/16 12:00 64 12/10/16 10:00 65 12/10/16 09:49 94 Nasal Cannula 2.00 12/10/16 08:00 98.4 62 15 142/69 (93) 94 12/10/16 08:00 96 Nasal Cannula 2.00 12/10/16 08:00 62 12/10/16 06:00 58 12/10/16 04:00 59 12/10/16 04:00 59 18 138/64 (88) 96 12/10/16 02:00 61 12/10/16 00:00 60 12/10/16 00:00 98.0 60 22 146/73 (97) 96 12/09/16 23:00 66 12/09/16 22:00 66 12/09/16 21:00 99.4 67 19 161/71 (101) 99 12/09/16 21:00 97 Nasal Cannula 2.00 12/09/16 21:00 97 Nasal Cannula 2.00 12/09/16 21:00 64 12/09/16 20:00 99.7 66 18 165/75 (105) 96 12/09/16 18:00 75 I/O 12/09/16 12/09/16 12/09/16 12/10/16 12/10/16 12/10/16 07:00 15:00 23:00 07:00 15:00 23:00 Intake Total 940 ml 480 ml 550 ml Output Total 1600 ml 2950 ml 3100 ml Balance -660 ml -2470 ml -2550 ml Intake Oral 650 ml 480 ml 550 ml IV Total 290 ml 0 ml Output Urine Total 1600 ml 2750 ml 2900 ml Stool Total 200 ml 200 ml Result Diagram: 12/09/16182012/09/161820 Objective Remarks GENERAL: SKIN: Warm and dry. HEAD: Atraumatic. Normocephalic. EYES: Pupils equal and round. No scleral icterus. No injection or drainage. ENT: No nasal bleeding or discharge. Mucous membranes pink and moist. NECK: Trachea midline. No JVD. CARDIOVASCULAR: Regular rate and rhythm. RESPIRATORY: No accessory muscle use. Clear to auscultation. Breath sounds equal bilaterally. GASTROINTESTINAL: Abdomen soft, non-tender, nondistended. Hepatic and splenic margins not palpable. MUSCULOSKELETAL: Extremities without clubbing, cyanosis, or edema. No obvious deformities. NEUROLOGICAL: Awake and alert. No obvious cranial nerve deficits. Motor grossly within normal limits. Five out of 5 muscle strength in the arms and legs. Normal speech. PSYCHIATRIC: Appropriate mood and affect; insight and judgment normal. Laboratory Tests Test 12/06/16 00:29 12/06/16 05:09 12/07/16 07:20 12/07/16 11:42 Blood Urea Nitrogen 43 MG/DL (7-18) 46 MG/DL (7-18) Creatinine 4.59 MG/DL (0.60-1.30) 4.43 MG/DL (0.60-1.30) Total Protein 5.2 GM/DL (6.4-8.2) 5.9 GM/DL (6.4-8.2) Calcium Level 5.9 MG/DL (8.5-10.1) 7.1 MG/DL (8.5-10.1) Potassium Level 2.9 MEQ/L (3.5-5.1) 2.8 MEQ/L (3.5-5.1) 3.4 MEQ/L (3.5-5.1) Chloride Level 108 MEQ/L (98-107) 112 MEQ/L (98-107) Estimat Glomerular Filtration Rate 13 ML/MIN (>89) 14 ML/MIN (>89) Protein Corrected Calcium 6.7 MG/DL (8.5-10.1) 7.7 MG/DL (8.5-10.1) Sodium Level 147 MEQ/L (136-145) Test 12/07/16 23:48 12/08/16 10:58 Arterial Blood pH 7.31 (7.380-7.420) Arterial Blood Partial Pressure CO2 51 mmHg (38-42) Arterial Blood Oxygen Content 11.6 Vol % (12.0-20.0) Blood Gas Hemoglobin 8.6 G/DL (12.0-16.0) Red Blood Count 3.11 MIL/MM3 (4.50-5.90) Hemoglobin 8.6 GM/DL (13.0-17.0) Hematocrit 26.5 % (39.0-51.0) Red Cell Distribution Width 19.4 % (11.6-17.2) Platelet Count 143 TH/MM3 (150-450) Neutrophils (%) (Auto) 72.1 % (16.0-70.0) Lymphocytes # (Auto) 0.9 TH/MM3 (1.0-4.8) Blood Urea Nitrogen 49 MG/DL (7-18) Creatinine 4.30 MG/DL (0.60-1.30) Random Glucose 164 MG/DL (74-106) Calcium Level 8.0 MG/DL (8.5-10.1) Potassium Level 3.4 MEQ/L (3.5-5.1) Chloride Level 110 MEQ/L (98-107) Estimat Glomerular Filtration Rate 14 ML/MIN (>89) Assessment and Plan Assessment and Plan respiratory failure, improving renal failure improving ayaz plan o2 as needed dialysis npsg post d/c Kathy Chavez MD Dec 10, 2016 16:11
--- NOTE | 2016-12-10 16:26 | HHI.NPPN ---
Subjective History of Present Illness 61-year-old male known to me from before with past medical history of chronic kidney disease and single kidney, history of peripheral vascular disease, hypertension, hyperlipidemia, partial small-bowel obstruction, history of paraplegia, history of neobladder formation with neurogenic bladder, who was admitted at [facility] for rehabilitation. I saw the patient when he was admitted in September and at that time he had creatinine as high as 6.3 and it improved to around 2.2 to 2.4 and it has been gradually going up. Additional Remarks Patient is alert, mild SOB, not in distress. Review of Systems General Constitutional: Fatigue Respiratory Lungs: SOB Cardiovascular Cardiac: Edema, BAEZ Objective Data Data Vital Signs Date Time Temp Pulse Resp B/P (MAP) Pulse Ox O2 Delivery O2 Flow Rate FiO2 12/10/16 16:00 66 12/10/16 14:00 65 12/10/16 12:00 99.3 64 27 125/57 (79) 93 12/10/16 12:00 64 12/10/16 10:00 65 12/10/16 09:49 94 Nasal Cannula 2.00 12/10/16 08:00 98.4 62 15 142/69 (93) 94 12/10/16 08:00 96 Nasal Cannula 2.00 12/10/16 08:00 62 12/10/16 06:00 58 12/10/16 04:00 59 12/10/16 04:00 59 18 138/64 (88) 96 12/10/16 02:00 61 12/10/16 00:00 60 12/10/16 00:00 98.0 60 22 146/73 (97) 96 12/09/16 23:00 66 12/09/16 22:00 66 12/09/16 21:00 99.4 67 19 161/71 (101) 99 12/09/16 21:00 97 Nasal Cannula 2.00 12/09/16 21:00 97 Nasal Cannula 2.00 12/09/16 21:00 64 12/09/16 20:00 99.7 66 18 165/75 (105) 96 12/09/16 18:00 75 -: 12/09/16 1821 12/09/16 1821 Physical Exam General Appearance: Well Nourished, No Acute Distress, Comfortable Eyes Eye Exam: Pupils Equal Throat Throat Exam: Oral Mucosa [place] & Moist Pulmonary Resp Exam: No Distress, Rhonchi, Decreased Bases, Diminished Breath Sounds Cardiology CV Exam: Regular Gastrointestinal/Abdomen GI Exam: Soft, Non-Tender, Distended GI Remarks ileal conduit opening. Extremeties Extremities Exam: Moderate Edema, Pitting Edema Neurologic Neuro Exam: Alert, Awake, Oriented Psychiatric Psych Exam: Appropriate Responses Assessment/Plan Assessment Summary: VIJAY/Acute Renal Failure, Hypotension, CKD Stage IV Electrolyte Assessment: Metabolic Acidosis Problem List: (1) Anemia in chronic kidney disease ICD Codes: N18.9 - Chronic kidney disease, unspecified; D63.1 - Anemia in chronic kidney disease Status: Acute (2) Hypertension ICD Codes: I10 - Essential (primary) hypertension Status: Chronic (3) Acidemia ICD Codes: E87.2 - Acidosis Status: Acute (4) Acute kidney injury ICD Codes: N17.9 - Acute kidney failure, unspecified Status: Acute (5) Paraplegia ICD Codes: G82.20 - Paraplegia Status: Chronic (6) Paraplegia ICD Codes: G82.20 - Paraplegia Status: Acute (7) Acute on chronic kidney failure ICD Codes: N17.9 - Acute kidney failure, unspecified; N18.9 - Chronic kidney disease, unspecified Status: Chronic Plan Patient has increase in BUN and Creatinine. Also has metabolic acidosis. Seen by urology, possibly have obstructive uropathy. BP is improving. Patient has moderate Hydronephrosis on rt. side, has single kidney. Renal scan did not show uptake, possible due to poor renal function. Creatinine is better, urine out put is good. Hold HD for now. Follow the urine out put and BMP. HD as needed. Problem Qualifiers (1) Anemia in chronic kidney disease: Qualified Codes: N18.4 - Chronic kidney disease, stage 4 (severe); D63.1 - Anemia in chronic kidney disease Lynsey Goldman MD Dec 10, 2016 16:26
[2016-12-10] MEDS: ATORVASTATIN 40 MG TAB PO SCH (19:53)
[2016-12-11] VITALS: BP 158/74; PULSE 64; RESP 18; TEMP 97.7; O2SAT 98
[2016-12-11 04:00] VITALS: BP 158/75; PULSE 56; RESP 18; TEMP 97.1; O2SAT 97
[2016-12-11] MEDS: oxyCODONE/ACETAMINOPHEN 5 MG/325 MG TAB PO PRN ×3 (04:55→17:51)
[2016-12-11 07:20] LABS: HEMATOCRIT 28.1 % (39.0-51.0); MEAN CELL VOLUME 85.3 FL (80.0-100.0); MEAN CORPUSCULAR HEMOGLOBIN 27.5 PG (27.0-34.0); MEAN CORPUSCULAR HGB CONC 32.3 % (32.0-36.0); PLATELET COUNT 115 TH/MM3 (150-450); RED CELL DISTRIBUTION WIDTH 18.6 % (11.6-17.2); REVIEW FLAG FINAL; WHITE BLOOD COUNT 7.1 TH/MM3 (4.0-11.0)
[2016-12-11 07:51] LABS: BICARBONATE 31.4 MEQ/L (21.0-32.0); POTASSIUM 3.8 MEQ/L (3.5-5.1)
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
[2016-12-11] MEDS: VANCOMYCIN 500 MG VIAL (FOR ORAL USE ONLY) PO SCH ×4 (09:00→21:22)
[2016-12-11] MEDS: FUROSEMIDE 40 MG/4 ML VIAL IV PUSH SCH (09:00)
[2016-12-11] MEDS: NYSTATIN 100,000 UNIT/GM CREAM 15 GM TOPICAL SCH ×2 (09:00→21:24)
--- NOTE | 2016-12-11 09:00 | HHI.PR ---
Subjective Remarks alert no SOB at rest Objective Vital Signs Date Time Temp Pulse Resp B/P (MAP) Pulse Ox O2 Delivery O2 Flow Rate FiO2 12/11/16 04:00 97.1 56 18 158/75 (102) 97 12/11/16 01:00 20 12/11/16 00:00 97.7 64 18 158/74 (102) 98 12/10/16 22:00 69 12/10/16 20:29 96 Nasal Cannula 2.00 12/10/16 20:00 75 12/10/16 20:00 75 19 159/77 (104) 95 12/10/16 19:00 94 Nasal Cannula 2.00 12/10/16 19:00 96 Nasal Cannula 2.00 12/10/16 18:00 66 12/10/16 16:00 99.4 66 22 144/67 (92) 94 12/10/16 16:00 66 12/10/16 14:00 65 12/10/16 12:00 99.3 64 27 125/57 (79) 93 12/10/16 12:00 64 12/10/16 10:00 65 12/10/16 09:49 94 Nasal Cannula 2.00 I/O 12/10/16 12/10/16 12/10/16 12/11/16 12/11/16 12/11/16 07:00 15:00 23:00 07:00 15:00 23:00 Intake Total 550 ml 960 ml 480 ml Output Total 3100 ml 3500 ml 1050 ml Balance -2550 ml -2540 ml -570 ml Intake Oral 550 ml 960 ml 480 ml Output Urine Total 2900 ml 3450 ml Stool Total 200 ml 50 ml 1050 ml Result Diagram: 12/11/1663012/11/16630 Objective Remarks GENERAL: SKIN: Warm and dry. HEAD: Atraumatic. Normocephalic. EYES: Pupils equal and round. No scleral icterus. No injection or drainage. ENT: No nasal bleeding or discharge. Mucous membranes pink and moist. NECK: Trachea midline. No JVD. CARDIOVASCULAR: Regular rate and rhythm. RESPIRATORY: No accessory muscle use. Clear to auscultation. Breath sounds equal bilaterally. GASTROINTESTINAL: Abdomen soft, non-tender, nondistended. Hepatic and splenic margins not palpable. MUSCULOSKELETAL: Extremities without clubbing, cyanosis, or edema. No obvious deformities. NEUROLOGICAL: Awake and alert. No obvious cranial nerve deficits. Motor grossly within normal limits. Five out of 5 muscle strength in the arms and legs. Normal speech. PSYCHIATRIC: Appropriate mood and affect; insight and judgment normal. Laboratory Tests Test 12/06/16 00:29 12/06/16 05:09 12/07/16 07:20 12/07/16 11:42 Blood Urea Nitrogen 43 MG/DL (7-18) 46 MG/DL (7-18) Creatinine 4.59 MG/DL (0.60-1.30) 4.43 MG/DL (0.60-1.30) Total Protein 5.2 GM/DL (6.4-8.2) 5.9 GM/DL (6.4-8.2) Calcium Level 5.9 MG/DL (8.5-10.1) 7.1 MG/DL (8.5-10.1) Potassium Level 2.9 MEQ/L (3.5-5.1) 2.8 MEQ/L (3.5-5.1) 3.4 MEQ/L (3.5-5.1) Chloride Level 108 MEQ/L (98-107) 112 MEQ/L (98-107) Estimat Glomerular Filtration Rate 13 ML/MIN (>89) 14 ML/MIN (>89) Protein Corrected Calcium 6.7 MG/DL (8.5-10.1) 7.7 MG/DL (8.5-10.1) Sodium Level 147 MEQ/L (136-145) Test 12/07/16 23:48 12/08/16 10:58 Arterial Blood pH 7.31 (7.380-7.420) Arterial Blood Partial Pressure CO2 51 mmHg (38-42) Arterial Blood Oxygen Content 11.6 Vol % (12.0-20.0) Blood Gas Hemoglobin 8.6 G/DL (12.0-16.0) Red Blood Count 3.11 MIL/MM3 (4.50-5.90) Hemoglobin 8.6 GM/DL (13.0-17.0) Hematocrit 26.5 % (39.0-51.0) Red Cell Distribution Width 19.4 % (11.6-17.2) Platelet Count 143 TH/MM3 (150-450) Neutrophils (%) (Auto) 72.1 % (16.0-70.0) Lymphocytes # (Auto) 0.9 TH/MM3 (1.0-4.8) Blood Urea Nitrogen 49 MG/DL (7-18) Creatinine 4.30 MG/DL (0.60-1.30) Random Glucose 164 MG/DL (74-106) Calcium Level 8.0 MG/DL (8.5-10.1) Potassium Level 3.4 MEQ/L (3.5-5.1) Chloride Level 110 MEQ/L (98-107) Estimat Glomerular Filtration Rate 14 ML/MIN (>89) Assessment and Plan Assessment and Plan respiratory failure, improving renal failure improving ayaz plan o2 as needed dialysis npsg post d/c Kathy Chavez MD Dec 11, 2016 09:00
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
[2016-12-11] MEDS ORDERED: CLOPIDOGREL 75 MG TAB PO ONE (10:00)
[2016-12-11] MEDS: LACTOBACILLUS ACIDOPHILUS TAB PO SCH ×3 (10:12→17:50)
[2016-12-11] MEDS: MULTIVITAMIN TAB PO SCH (10:12)
[2016-12-11] MEDS: METOPROLOL SUCCINATE 50 MG EXTENDED RELEASE TAB PO SCH (10:12)
[2016-12-11] MEDS: ASPIRIN EC 81 MG TABEC PO SCH (10:12)
[2016-12-11] MEDS: amLODIPine BESYLATE 5 MG TAB PO SCH (10:13)
[2016-12-11] MEDS: ASCORBIC ACID 500 MG TAB PO SCH (10:13)
[2016-12-11] MEDS: CYANOCOBALAMIN 1,000 MCG TAB PO SCH (10:13)
[2016-12-11] MEDS: hydrALAZINE HCL 100 MG TAB PO SCH ×2 (10:13→21:22)
[2016-12-11] MEDS: MORPHINE SULFATE 15 MG CONTROLLED RELEASE TAB PO SCH ×2 (10:13→21:23)
[2016-12-11] MEDS: FERROUS SULFATE 325 MG (65 MG ELEMENTAL IRON) TAB PO SCH ×3 (10:13→17:51)
[2016-12-11] MEDS: PANTOPRAZOLE SOD 40 MG DELAYED RELEASE TAB PO SCH (10:14)
[2016-12-11] MEDS: SODIUM CHLORIDE 0.9% FLUSH 10 ML FLUSH IVF SCH (10:16)
[2016-12-11] MEDS: SODIUM CHLORIDE 0.9% FLUSH 10 ML FLUSH IV FLUSH SCH ×2 (10:16→21:22)
[2016-12-11 12:00] VITALS: BP 144/72; PULSE 59; RESP 18; TEMP 98.1; O2SAT 95
[2016-12-11] MEDS: CALCITRIOL 0.25 MCG CAP PO SCH (12:14)
--- NOTE | 2016-12-11 13:47 | HHI.NPPN ---
Subjective History of Present Illness 61-year-old male known to me from before with past medical history of chronic kidney disease and single kidney, history of peripheral vascular disease, hypertension, hyperlipidemia, partial small-bowel obstruction, history of paraplegia, history of neobladder formation with neurogenic bladder, who was admitted at [facility] for rehabilitation. I saw the patient when he was admitted in September and at that time he had creatinine as high as 6.3 and it improved to around 2.2 to 2.4 and it has been gradually going up. Additional Remarks Patient is alert, still with increase swelling and edema, not in distress. Review of Systems General Constitutional: Fatigue Respiratory Lungs: SOB Cardiovascular Cardiac: Edema, BAEZ Objective Data Data Vital Signs Date Time Temp Pulse Resp B/P (MAP) Pulse Ox O2 Delivery O2 Flow Rate FiO2 12/11/16 04:00 97.1 56 18 158/75 (102) 97 12/11/16 01:00 20 12/11/16 00:00 97.7 64 18 158/74 (102) 98 12/10/16 22:00 69 12/10/16 20:29 96 Nasal Cannula 2.00 12/10/16 20:00 75 12/10/16 20:00 75 19 159/77 (104) 95 12/10/16 19:00 94 Nasal Cannula 2.00 12/10/16 19:00 96 Nasal Cannula 2.00 12/10/16 18:00 66 12/10/16 16:00 99.4 66 22 144/67 (92) 94 12/10/16 16:00 66 12/10/16 14:00 65 -: 12/11/16 0631 12/11/16 0631 Physical Exam General Appearance: Well Nourished, No Acute Distress, Comfortable Eyes Eye Exam: Pupils Equal Throat Throat Exam: Oral Mucosa [place] & Moist Pulmonary Resp Exam: No Distress, Rhonchi, Decreased Bases, Diminished Breath Sounds Cardiology CV Exam: Regular Gastrointestinal/Abdomen GI Exam: Soft, Non-Tender, Distended Extremeties Extremities Exam: Moderate Edema, Pitting Edema Neurologic Neuro Exam: Alert, Awake, Oriented Psychiatric Psych Exam: Appropriate Responses Assessment/Plan Assessment Summary: VIJAY/Acute Renal Failure, Hypotension, CKD Stage IV Electrolyte Assessment: Metabolic Acidosis Problem List: (1) Anemia in chronic kidney disease ICD Codes: N18.9 - Chronic kidney disease, unspecified; D63.1 - Anemia in chronic kidney disease Status: Acute (2) Hypertension ICD Codes: I10 - Essential (primary) hypertension Status: Chronic (3) Acidemia ICD Codes: E87.2 - Acidosis Status: Acute (4) Acute kidney injury ICD Codes: N17.9 - Acute kidney failure, unspecified Status: Acute (5) Paraplegia ICD Codes: G82.20 - Paraplegia Status: Chronic (6) Paraplegia ICD Codes: G82.20 - Paraplegia Status: Acute (7) Acute on chronic kidney failure ICD Codes: N17.9 - Acute kidney failure, unspecified; N18.9 - Chronic kidney disease, unspecified Status: Chronic Plan Patient has increase in BUN and Creatinine. Also has metabolic acidosis. Seen by urology, possibly have obstructive uropathy. BP is improving. Patient has moderate Hydronephrosis on rt. side, has single kidney. Renal scan did not show uptake, possible due to poor renal function. HD on hold as UOP increased Cr 3.8 Lasix dose decreased Salas Dsouza MD Dec 11, 2016 13:47
[2016-12-11 16:00] VITALS: BP 152/72; PULSE 62; RESP 18; TEMP 97.9; O2SAT 97
[2016-12-11 17:52] VITALS: O2SAT 95
[2016-12-11] MEDS: SODIUM HYPOCHLORITE 0.25% 500 ML BTL OTHER SCH (17:53)
[2016-12-11 20:00] VITALS: BP 154/74; PULSE 64; RESP 18; TEMP 98.7; O2SAT 97
[2016-12-11] MEDS: ATORVASTATIN 40 MG TAB PO SCH (21:22)
[2016-12-12] VITALS (8 sets, daily range): BP systolic 136–165; BP diastolic 63–79; PULSE 60–64; RESP 14–21; TEMP 96.8–98.3; O2SAT 96–98
[2016-12-12] MEDS: MELATONIN 5 MG TAB PO PRN (00:14)
[2016-12-12] MEDS: oxyCODONE/ACETAMINOPHEN 5 MG/325 MG TAB PO PRN ×4 (00:14→18:47)
[2016-12-12 07:34] LABS: AUTOMATED NEUTROPHIL # 5.4 TH/MM3 (1.8-7.7); BASOPHIL # 0.1 TH/MM3 (0-0.2); BASOPHIL % 0.9 % (0.0-2.0); EOSINOPHIL # 0.4 TH/MM3 (0-0.4); EOSINOPHIL % 5.4 % (0.0-4.0); HEMATOCRIT 26.4 % (39.0-51.0); HEMO FLAGS DIFF FINAL; LYMPH % 18.8 % (9.0-44.0); LYMPHOCYTE # 1.5 TH/MM3 (1.0-4.8); MEAN CELL VOLUME 84.7 FL (80.0-100.0); MEAN CORPUSCULAR HGB CONC 31.9 % (32.0-36.0); MONO % 6.6 % (0.0-8.0); NEUT % 68.3 % (16.0-70.0); PLATELET COUNT 117 TH/MM3 (150-450); RED BLOOD COUNT 3.11 MIL/MM3 (4.50-5.90); RED CELL DISTRIBUTION WIDTH 17.7 % (11.6-17.2); WHITE BLOOD COUNT 7.9 TH/MM3 (4.0-11.0)
[2016-12-12 07:58] LABS: ANION GAP 7 MEQ/L (5-15); AST (GOT) 10 U/L (15-37); BICARBONATE 31.7 MEQ/L (21.0-32.0); BLOOD UREA NITROGEN 50 MG/DL (7-18); CHLORIDE 103 MEQ/L (98-107); GLOMERULAR FILTRATION RATE 16 ML/MIN (>89); POTASSIUM 4.3 MEQ/L (3.5-5.1); SODIUM (NA) 142 MEQ/L (136-145)
[2016-12-12 08:03] LABS: ALKALINE PHOSPHATASE 84 U/L (45-117); ALT (GPT) 10 U/L (12-78); TOTAL BILIRUBIN ADULT 0.3 MG/DL (0.2-1.0)
[2016-12-12] MEDS ORDERED: FUROSEMIDE 20 MG TAB PO SCH (09:00)
--- NOTE | 2016-12-12 09:30 | HHI.NPPN ---
Subjective History of Present Illness 61-year-old male known to me from before with past medical history of chronic kidney disease and single kidney, history of peripheral vascular disease, hypertension, hyperlipidemia, partial small-bowel obstruction, history of paraplegia, history of neobladder formation with neurogenic bladder, who was admitted at [facility] for rehabilitation. I saw the patient when he was admitted in September and at that time he had creatinine as high as 6.3 and it improved to around 2.2 to 2.4 and it has been gradually going up. Additional Remarks Last HD on 12/08/16. Creatinine is about the same.On Lasix 20 mg PO daily Review of Systems General Constitutional: Fatigue Respiratory Lungs: SOB Cardiovascular Cardiac: Edema Objective Data Data Vital Signs Date Time Temp Pulse Resp B/P (MAP) Pulse Ox O2 Delivery O2 Flow Rate FiO2 12/12/16 06:00 97.3 62 19 165/75 (105) 97 12/12/16 00:00 98.3 64 18 164/79 (107) 96 12/11/16 21:25 Nasal Cannula 1.50 12/11/16 20:00 98.7 64 18 154/74 (100) 97 12/11/16 18:45 Nasal Cannula 1.50 12/11/16 17:52 95 Nasal Cannula 2.00 12/11/16 16:00 97.9 62 18 152/72 (98) 97 12/11/16 12:00 98.1 59 18 144/72 (96) 95 -: 12/12/16 0705 12/12/16 0705 Physical Exam General Appearance: Well Nourished, No Acute Distress, Comfortable Eyes Eye Exam: Pupils Equal Throat Throat Exam: Oral Mucosa [place] & Moist Pulmonary Resp Exam: No Distress, Rhonchi, Decreased Bases, Diminished Breath Sounds Cardiology CV Exam: Regular Gastrointestinal/Abdomen GI Exam: Soft, Non-Tender, Distended Extremeties Extremities Exam: Moderate Edema, Pitting Edema Neurologic Neuro Exam: Alert, Awake, Oriented Psychiatric Psych Exam: Appropriate Responses Assessment/Plan Assessment Summary: VIJAY/Acute Renal Failure, Hypotension, CKD Stage IV Electrolyte Assessment: Metabolic Acidosis Problem List: (1) Anemia in chronic kidney disease ICD Codes: N18.9 - Chronic kidney disease, unspecified; D63.1 - Anemia in chronic kidney disease Status: Acute (2) Hypertension ICD Codes: I10 - Essential (primary) hypertension Status: Chronic (3) Acidemia ICD Codes: E87.2 - Acidosis Status: Acute (4) Acute kidney injury ICD Codes: N17.9 - Acute kidney failure, unspecified Status: Acute (5) Paraplegia ICD Codes: G82.20 - Paraplegia Status: Chronic (6) Paraplegia ICD Codes: G82.20 - Paraplegia Status: Acute (7) Acute on chronic kidney failure ICD Codes: N17.9 - Acute kidney failure, unspecified; N18.9 - Chronic kidney disease, unspecified Status: Chronic Plan Patient has increase in BUN and Creatinine. Seen by urology, possibly have obstructive uropathy. Patient has moderate Hydronephrosis on rt. side, has single kidney. Renal scan did not show uptake, possible due to poor renal function. HD on hold as UOP increased Cr 3.8 Continue to monitor, no need for dialysis today. Santiago Davenport MD Dec 12, 2016 09:30
[2016-12-12] MEDS: MORPHINE SULFATE 15 MG CONTROLLED RELEASE TAB PO SCH ×2 (11:46→20:46)
[2016-12-12] MEDS: VANCOMYCIN 500 MG VIAL (FOR ORAL USE ONLY) PO SCH ×4 (11:50→20:46)
[2016-12-12] MEDS: CYANOCOBALAMIN 1,000 MCG TAB PO SCH (11:50)
[2016-12-12] MEDS: ASPIRIN EC 81 MG TABEC PO SCH (11:51)
[2016-12-12] MEDS: LACTOBACILLUS ACIDOPHILUS TAB PO SCH ×3 (11:51→18:14)
[2016-12-12] MEDS: hydrALAZINE HCL 100 MG TAB PO SCH ×2 (11:51→20:45)
[2016-12-12] MEDS: ASCORBIC ACID 500 MG TAB PO SCH (11:51)
[2016-12-12] MEDS: PANTOPRAZOLE SOD 40 MG DELAYED RELEASE TAB PO SCH (11:51)
[2016-12-12] MEDS: METOPROLOL SUCCINATE 50 MG EXTENDED RELEASE TAB PO SCH (11:52)
[2016-12-12] MEDS: MULTIVITAMIN TAB PO SCH (11:52)
[2016-12-12] MEDS: amLODIPine BESYLATE 5 MG TAB PO SCH (11:52)
[2016-12-12] MEDS: CLOPIDOGREL 75 MG TAB PO SCH (11:53)
[2016-12-12] MEDS: FERROUS SULFATE 325 MG (65 MG ELEMENTAL IRON) TAB PO SCH ×3 (11:53→18:14)
[2016-12-12] MEDS: SODIUM CHLORIDE 0.9% FLUSH 10 ML FLUSH IV FLUSH SCH ×2 (11:53→20:48)
[2016-12-12] MEDS: SODIUM CHLORIDE 0.9% FLUSH 10 ML FLUSH IVF SCH (11:53)
[2016-12-12] MEDS: CALCITRIOL 0.25 MCG CAP PO SCH (11:54)
[2016-12-12] MEDS: NYSTATIN 100,000 UNIT/GM CREAM 15 GM TOPICAL SCH ×2 (11:54→20:46)
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
[2016-12-12] MEDS: ATORVASTATIN 40 MG TAB PO SCH (20:45)
[2016-12-13] MEDS: MELATONIN 5 MG TAB PO PRN (00:49)
[2016-12-13] MEDS: oxyCODONE/ACETAMINOPHEN 5 MG/325 MG TAB PO PRN ×4 (00:49→19:10)
[2016-12-13 04:25] VITALS: BP 140/65; PULSE 56; RESP 18; TEMP 98.3; O2SAT 94
[2016-12-13 07:33] LABS: AUTOMATED NEUTROPHIL # 4.9 TH/MM3 (1.8-7.7); BASOPHIL # 0.1 TH/MM3 (0-0.2); BASOPHIL % 0.9 % (0.0-2.0); EOSINOPHIL # 0.4 TH/MM3 (0-0.4); EOSINOPHIL % 5.7 % (0.0-4.0); HEMATOCRIT 27.4 % (39.0-51.0); HEMO FLAGS DIFF FINAL; LYMPH % 23.8 % (9.0-44.0); LYMPHOCYTE # 1.9 TH/MM3 (1.0-4.8); MEAN CELL VOLUME 84.6 FL (80.0-100.0); MONO % 6.5 % (0.0-8.0); NEUT % 63.1 % (16.0-70.0); PLATELET COUNT 129 TH/MM3 (150-450); RED BLOOD COUNT 3.24 MIL/MM3 (4.50-5.90); RED CELL DISTRIBUTION WIDTH 18.2 % (11.6-17.2); WHITE BLOOD COUNT 7.8 TH/MM3 (4.0-11.0)
[2016-12-13 07:43] LABS: ALT (GPT) 10 U/L (12-78); ANION GAP 7 MEQ/L (5-15); AST (GOT) 13 U/L (15-37); BICARBONATE 30.2 MEQ/L (21.0-32.0); BLOOD UREA NITROGEN 49 MG/DL (7-18); CHLORIDE 100 MEQ/L (98-107); GLOMERULAR FILTRATION RATE 17 ML/MIN (>89); POTASSIUM 5.2 MEQ/L (3.5-5.1); SODIUM (NA) 137 MEQ/L (136-145)
[2016-12-13 07:44] LABS: ALKALINE PHOSPHATASE 83 U/L (45-117); TOTAL BILIRUBIN ADULT 0.3 MG/DL (0.2-1.0)
[2016-12-13 08:00] VITALS: BP 137/95; PULSE 83; RESP 18; TEMP 97.6; O2SAT 95
[2016-12-13] MEDS: SODIUM CHLORIDE 0.9% FLUSH 10 ML FLUSH IV FLUSH SCH ×2 (09:28→21:49)
[2016-12-13] MEDS: SODIUM CHLORIDE 0.9% FLUSH 10 ML FLUSH IVF SCH (09:28)
[2016-12-13] MEDS: CLOPIDOGREL 75 MG TAB PO SCH (09:29)
[2016-12-13] MEDS: CALCITRIOL 0.25 MCG CAP PO SCH (09:29)
[2016-12-13] MEDS: PANTOPRAZOLE SOD 40 MG DELAYED RELEASE TAB PO SCH (09:29)
[2016-12-13] MEDS: ASCORBIC ACID 500 MG TAB PO SCH (09:30)
[2016-12-13] MEDS: CYANOCOBALAMIN 1,000 MCG TAB PO SCH (09:30)
[2016-12-13] MEDS: amLODIPine BESYLATE 5 MG TAB PO SCH (09:30)
[2016-12-13] MEDS: ASPIRIN EC 81 MG TABEC PO SCH (09:30)
[2016-12-13] MEDS: MULTIVITAMIN TAB PO SCH (09:30)
[2016-12-13] MEDS: hydrALAZINE HCL 100 MG TAB PO SCH ×2 (09:30→21:45)
[2016-12-13] MEDS: FERROUS SULFATE 325 MG (65 MG ELEMENTAL IRON) TAB PO SCH ×3 (09:30→19:09)
[2016-12-13] MEDS: MORPHINE SULFATE 15 MG CONTROLLED RELEASE TAB PO SCH ×2 (09:31→21:45)
[2016-12-13] MEDS: LACTOBACILLUS ACIDOPHILUS TAB PO SCH ×3 (09:31→19:09)
[2016-12-13] MEDS: METOPROLOL SUCCINATE 50 MG EXTENDED RELEASE TAB PO SCH (09:32)
[2016-12-13] MEDS: VANCOMYCIN 500 MG VIAL (FOR ORAL USE ONLY) PO SCH ×4 (09:32→21:45)
[2016-12-13] MEDS: NYSTATIN 100,000 UNIT/GM CREAM 15 GM TOPICAL SCH ×2 (09:32→21:00)
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
[2016-12-13 10:19] VITALS: O2SAT 98
--- NOTE | 2016-12-13 11:45 | HHI.NPPN ---
Subjective History of Present Illness 61-year-old male known to me from before with past medical history of chronic kidney disease and single kidney, history of peripheral vascular disease, hypertension, hyperlipidemia, partial small-bowel obstruction, history of paraplegia, history of neobladder formation with neurogenic bladder, who was admitted at [facility] for rehabilitation. I saw the patient when he was admitted in September and at that time he had creatinine as high as 6.3 and it improved to around 2.2 to 2.4 and it has been gradually going up. Additional Remarks Renal function is stable, he has no new complaints. Non oliguric. Review of Systems General Constitutional: Fatigue Respiratory Lungs: SOB Cardiovascular Cardiac: Edema Objective Data Data Vital Signs Date Time Temp Pulse Resp B/P (MAP) Pulse Ox O2 Delivery O2 Flow Rate FiO2 12/13/16 10:19 98 Nasal Cannula 1.00 12/13/16 04:25 98.3 56 18 140/65 (90) 94 12/12/16 20:50 Nasal Cannula 1.00 12/12/16 20:37 98.1 60 18 145/70 (95) 97 12/12/16 19:55 98 Nasal Cannula 1.00 12/12/16 16:00 98.2 61 14 154/75 (101) 98 12/12/16 12:34 98.0 60 17 136/63 (87) 98 12/12/16 12:06 98 Nasal Cannula 1.00 -: 12/13/16 0700 12/13/16 0700 Physical Exam General Appearance: Well Nourished, No Acute Distress, Comfortable Eyes Eye Exam: Pupils Equal Throat Throat Exam: Oral Mucosa [place] & Moist Pulmonary Resp Exam: No Distress, Rhonchi, Decreased Bases, Diminished Breath Sounds Cardiology CV Exam: Regular Gastrointestinal/Abdomen GI Exam: Soft, Non-Tender, Distended Extremeties Extremities Exam: Moderate Edema, Pitting Edema Neurologic Neuro Exam: Alert, Awake, Oriented Psychiatric Psych Exam: Appropriate Responses Assessment/Plan Assessment Summary: VIJAY/Acute Renal Failure, Hypotension, CKD Stage IV Electrolyte Assessment: Metabolic Acidosis Problem List: (1) Anemia in chronic kidney disease ICD Codes: N18.9 - Chronic kidney disease, unspecified; D63.1 - Anemia in chronic kidney disease Status: Acute (2) Hypertension ICD Codes: I10 - Essential (primary) hypertension Status: Chronic (3) Acidemia ICD Codes: E87.2 - Acidosis Status: Acute (4) Acute kidney injury ICD Codes: N17.9 - Acute kidney failure, unspecified Status: Acute (5) Paraplegia ICD Codes: G82.20 - Paraplegia Status: Chronic (6) Paraplegia ICD Codes: G82.20 - Paraplegia Status: Acute (7) Acute on chronic kidney failure ICD Codes: N17.9 - Acute kidney failure, unspecified; N18.9 - Chronic kidney disease, unspecified Status: Chronic Plan Patient has increase in BUN and Creatinine. Seen by urology, possibly have obstructive uropathy. Patient has moderate Hydronephrosis on rt. side, has single kidney. Renal scan did not show uptake, possible due to poor renal function. HD on hold as UOP increased Cr 3.69 today. Continue to monitor, no need for dialysis today. Santiago Davenport MD Dec 13, 2016 11:45
[2016-12-13 14:30] LABS: BICARBONATE 29.7 MEQ/L (21.0-32.0); POTASSIUM 4.7 MEQ/L (3.5-5.1)
[2016-12-13 16:00] VITALS: BP 152/77; PULSE 66; RESP 18; TEMP 97.7; O2SAT 95
[2016-12-13 21:42] VITALS: BP 170/81; PULSE 68; RESP 16; TEMP 98.1; O2SAT 96
[2016-12-13] MEDS: ATORVASTATIN 40 MG TAB PO SCH (21:45)
[2016-12-13] MEDS: SODIUM HYPOCHLORITE 0.25% 500 ML BTL OTHER SCH (21:49)
[2016-12-14 00:55] VITALS: BP 148/77; PULSE 72; RESP 18; TEMP 97.5; O2SAT 93
[2016-12-14] MEDS: MELATONIN 5 MG TAB PO PRN (01:12)
[2016-12-14] MEDS: oxyCODONE/ACETAMINOPHEN 5 MG/325 MG TAB PO PRN ×4 (01:12→18:17)
[2016-12-14 04:45] VITALS: BP 148/72; PULSE 66; RESP 18; TEMP 96.4; O2SAT 92
[2016-12-14 08:00] VITALS: BP 144/73; PULSE 65; RESP 18; TEMP 98; O2SAT 92
[2016-12-14 08:10] LABS: AUTOMATED NEUTROPHIL # 3.7 TH/MM3 (1.8-7.7); BASOPHIL # 0.1 TH/MM3 (0-0.2); BASOPHIL % 1.1 % (0.0-2.0); EOSINOPHIL # 0.3 TH/MM3 (0-0.4); EOSINOPHIL % 5.4 % (0.0-4.0); HEMATOCRIT 25.6 % (39.0-51.0); HEMO FLAGS DIFF FINAL; LYMPH % 26.2 % (9.0-44.0); LYMPHOCYTE # 1.6 TH/MM3 (1.0-4.8); MEAN CELL VOLUME 83.9 FL (80.0-100.0); MEAN CORPUSCULAR HEMOGLOBIN 26.7 PG (27.0-34.0); MEAN CORPUSCULAR HGB CONC 31.8 % (32.0-36.0); MONO % 7.3 % (0.0-8.0); PLATELET COUNT 153 TH/MM3 (150-450); RED BLOOD COUNT 3.06 MIL/MM3 (4.50-5.90); RED CELL DISTRIBUTION WIDTH 17.6 % (11.6-17.2); WHITE BLOOD COUNT 6.2 TH/MM3 (4.0-11.0)
[2016-12-14 08:29] LABS: ANION GAP 7 MEQ/L (5-15); AST (GOT) 11 U/L (15-37); BICARBONATE 27.6 MEQ/L (21.0-32.0); BLOOD UREA NITROGEN 52 MG/DL (7-18); CHLORIDE 105 MEQ/L (98-107); GLOMERULAR FILTRATION RATE 18 ML/MIN (>89); POTASSIUM 5.3 MEQ/L (3.5-5.1); SODIUM (NA) 140 MEQ/L (136-145)
[2016-12-14 08:33] LABS: ALKALINE PHOSPHATASE 87 U/L (45-117); ALT (GPT) 11 U/L (12-78); TOTAL BILIRUBIN ADULT 0.3 MG/DL (0.2-1.0)
[2016-12-14] MEDS: SODIUM CHLORIDE 0.9% FLUSH 10 ML FLUSH IV FLUSH SCH ×2 (09:00→22:08)
[2016-12-14] MEDS: VANCOMYCIN 500 MG VIAL (FOR ORAL USE ONLY) PO SCH ×4 (09:00→22:07)
[2016-12-14] MEDS: SODIUM CHLORIDE 0.9% FLUSH 10 ML FLUSH IVF SCH (09:00)
[2016-12-14] MEDS: NYSTATIN 100,000 UNIT/GM CREAM 15 GM TOPICAL SCH ×2 (09:00→21:00)
[2016-12-14] MEDS: METOPROLOL SUCCINATE 50 MG EXTENDED RELEASE TAB PO SCH (10:05)
[2016-12-14] MEDS: MORPHINE SULFATE 15 MG CONTROLLED RELEASE TAB PO SCH ×2 (10:05→22:08)
[2016-12-14] MEDS: LACTOBACILLUS ACIDOPHILUS TAB PO SCH ×3 (10:06→18:16)
[2016-12-14] MEDS: ASPIRIN EC 81 MG TABEC PO SCH (10:06)
[2016-12-14] MEDS: FERROUS SULFATE 325 MG (65 MG ELEMENTAL IRON) TAB PO SCH ×3 (10:06→18:16)
[2016-12-14] MEDS: CYANOCOBALAMIN 1,000 MCG TAB PO SCH (10:06)
[2016-12-14] MEDS: ASCORBIC ACID 500 MG TAB PO SCH (10:06)
[2016-12-14] MEDS: amLODIPine BESYLATE 5 MG TAB PO SCH (10:06)
[2016-12-14] MEDS: CLOPIDOGREL 75 MG TAB PO SCH (10:06)
[2016-12-14] MEDS: hydrALAZINE HCL 100 MG TAB PO SCH ×2 (10:07→22:07)
[2016-12-14] MEDS: MULTIVITAMIN TAB PO SCH (10:07)
[2016-12-14] MEDS: CALCITRIOL 0.25 MCG CAP PO SCH (10:07)
[2016-12-14] MEDS: PANTOPRAZOLE SOD 40 MG DELAYED RELEASE TAB PO SCH (10:07)
[2016-12-14 12:00] VITALS: BP 149/91; PULSE 79; RESP 18; TEMP 97.3; O2SAT 95
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
[2016-12-14 16:00] VITALS: BP 154/86; PULSE 61; RESP 18; TEMP 96.4; O2SAT 97
--- NOTE | 2016-12-14 17:33 | HHI.PR ---
Subjective Remarks alert no SOB at rest Objective Vital Signs Date Time Temp Pulse Resp B/P (MAP) Pulse Ox O2 Delivery O2 Flow Rate FiO2 12/14/16 12:00 97.3 79 18 149/91 (110) 95 12/14/16 08:00 98.0 65 18 144/73 (96) 92 12/14/16 08:00 Room Air 12/14/16 04:45 96.4 66 18 148/72 (97) 92 12/14/16 00:55 97.5 72 18 148/77 (100) 93 12/13/16 21:45 Nasal Cannula 1.00 30 12/13/16 21:42 98.1 68 16 170/81 (110) 96 I/O 12/13/16 12/13/16 12/13/16 12/14/16 12/14/16 12/14/16 07:00 15:00 23:00 07:00 15:00 23:00 Intake Total 1800 ml 480 ml Output Total 4325 ml 1550 ml Balance -2525 ml -1070 ml Intake Oral 1800 ml 480 ml Output Urine Total 4075 ml 1550 ml Stool Total 250 ml Result Diagram: 12/14/1643 12/14/16 0743 Objective Remarks GENERAL: SKIN: Warm and dry. HEAD: Atraumatic. Normocephalic. EYES: Pupils equal and round. No scleral icterus. No injection or drainage. ENT: No nasal bleeding or discharge. Mucous membranes pink and moist. NECK: Trachea midline. No JVD. CARDIOVASCULAR: Regular rate and rhythm. RESPIRATORY: No accessory muscle use. Clear to auscultation. Breath sounds equal bilaterally. GASTROINTESTINAL: Abdomen soft, non-tender, nondistended. Hepatic and splenic margins not palpable. MUSCULOSKELETAL: Extremities without clubbing, cyanosis, or edema. No obvious deformities. NEUROLOGICAL: Awake and alert. No obvious cranial nerve deficits. Motor grossly within normal limits. Five out of 5 muscle strength in the arms and legs. Normal speech. PSYCHIATRIC: Appropriate mood and affect; insight and judgment normal. Laboratory Tests Test 12/06/16 00:29 12/06/16 05:09 12/07/16 07:20 12/07/16 11:42 Blood Urea Nitrogen 43 MG/DL (7-18) 46 MG/DL (7-18) Creatinine 4.59 MG/DL (0.60-1.30) 4.43 MG/DL (0.60-1.30) Total Protein 5.2 GM/DL (6.4-8.2) 5.9 GM/DL (6.4-8.2) Calcium Level 5.9 MG/DL (8.5-10.1) 7.1 MG/DL (8.5-10.1) Potassium Level 2.9 MEQ/L (3.5-5.1) 2.8 MEQ/L (3.5-5.1) 3.4 MEQ/L (3.5-5.1) Chloride Level 108 MEQ/L (98-107) 112 MEQ/L (98-107) Estimat Glomerular Filtration Rate 13 ML/MIN (>89) 14 ML/MIN (>89) Protein Corrected Calcium 6.7 MG/DL (8.5-10.1) 7.7 MG/DL (8.5-10.1) Sodium Level 147 MEQ/L (136-145) Test 12/07/16 23:48 12/08/16 10:58 Arterial Blood pH 7.31 (7.380-7.420) Arterial Blood Partial Pressure CO2 51 mmHg (38-42) Arterial Blood Oxygen Content 11.6 Vol % (12.0-20.0) Blood Gas Hemoglobin 8.6 G/DL (12.0-16.0) Red Blood Count 3.11 MIL/MM3 (4.50-5.90) Hemoglobin 8.6 GM/DL (13.0-17.0) Hematocrit 26.5 % (39.0-51.0) Red Cell Distribution Width 19.4 % (11.6-17.2) Platelet Count 143 TH/MM3 (150-450) Neutrophils (%) (Auto) 72.1 % (16.0-70.0) Lymphocytes # (Auto) 0.9 TH/MM3 (1.0-4.8) Blood Urea Nitrogen 49 MG/DL (7-18) Creatinine 4.30 MG/DL (0.60-1.30) Random Glucose 164 MG/DL (74-106) Calcium Level 8.0 MG/DL (8.5-10.1) Potassium Level 3.4 MEQ/L (3.5-5.1) Chloride Level 110 MEQ/L (98-107) Estimat Glomerular Filtration Rate 14 ML/MIN (>89) Assessment and Plan Assessment and Plan respiratory failure, improving renal failure improving ayaz plan o2 as needed dialysis npsg post d/c Kathy Chavez MD Dec 14, 2016 17:33
--- NOTE | 2016-12-14 19:35 | HHI.NPPN ---
Subjective History of Present Illness 61-year-old male known to me from before with past medical history of chronic kidney disease and single kidney, history of peripheral vascular disease, hypertension, hyperlipidemia, partial small-bowel obstruction, history of paraplegia, history of neobladder formation with neurogenic bladder, who was admitted at [facility] for rehabilitation. I saw the patient when he was admitted in September and at that time he had creatinine as high as 6.3 and it improved to around 2.2 to 2.4 and it has been gradually going up. Additional Remarks Patient is alert, breathing is much better, BP is stable. Review of Systems General Constitutional: Fatigue Respiratory Lungs: SOB Cardiovascular Cardiac: Edema Objective Data Data Vital Signs Date Time Temp Pulse Resp B/P (MAP) Pulse Ox O2 Delivery O2 Flow Rate FiO2 12/14/16 16:00 96.4 61 18 154/86 (108) 97 12/14/16 12:00 97.3 79 18 149/91 (110) 95 12/14/16 08:00 98.0 65 18 144/73 (96) 92 12/14/16 08:00 Room Air 12/14/16 04:45 96.4 66 18 148/72 (97) 92 12/14/16 00:55 97.5 72 18 148/77 (100) 93 12/13/16 21:45 Nasal Cannula 1.00 30 12/13/16 21:42 98.1 68 16 170/81 (110) 96 -: 12/14/16 0743 12/14/16 0743 Physical Exam General Appearance: Well Nourished, No Acute Distress, Comfortable Eyes Eye Exam: Pupils Equal Throat Throat Exam: Oral Mucosa [place] & Moist Pulmonary Resp Exam: No Distress, Rhonchi, Decreased Bases, Diminished Breath Sounds Cardiology CV Exam: Regular Gastrointestinal/Abdomen GI Exam: Soft, Non-Tender, Distended GI Remarks ileal conduit opening. Extremeties Extremities Exam: Moderate Edema, Pitting Edema Neurologic Neuro Exam: Alert, Awake, Oriented Psychiatric Psych Exam: Appropriate Responses Assessment/Plan Assessment Summary: VIJAY/Acute Renal Failure, Hypotension, CKD Stage IV Electrolyte Assessment: Metabolic Acidosis Problem List: (1) Anemia in chronic kidney disease ICD Codes: N18.9 - Chronic kidney disease, unspecified; D63.1 - Anemia in chronic kidney disease Status: Acute (2) Hypertension ICD Codes: I10 - Essential (primary) hypertension Status: Chronic (3) Acidemia ICD Codes: E87.2 - Acidosis Status: Acute (4) Acute kidney injury ICD Codes: N17.9 - Acute kidney failure, unspecified Status: Acute (5) Paraplegia ICD Codes: G82.20 - Paraplegia Status: Chronic (6) Paraplegia ICD Codes: G82.20 - Paraplegia Status: Acute (7) Acute on chronic kidney failure ICD Codes: N17.9 - Acute kidney failure, unspecified; N18.9 - Chronic kidney disease, unspecified Status: Chronic Plan Patient has increase in BUN and Creatinine. Also has metabolic acidosis. Seen by urology, possibly have obstructive uropathy. BP is improving. Patient has moderate Hydronephrosis on rt. side, has single kidney. Renal scan did not show uptake, possible due to poor renal function. Creatinine is now stable at 3.5. Urine out put is good. HD has been on hold. If Creatinine improve further, will D/C Vascath. Problem Qualifiers (1) Anemia in chronic kidney disease: Qualified Codes: N18.4 - Chronic kidney disease, stage 4 (severe); D63.1 - Anemia in chronic kidney disease Lynsey Goldman MD Dec 14, 2016 19:35
[2016-12-14 20:00] VITALS: BP 175/91; PULSE 64; RESP 18; TEMP 96.8; O2SAT 97
--- NOTE | 2016-12-14 21:03 | RADRPT ---
EXAM DATE/TIME: 12/14/2016 20:24 [place] COMPARISON: No previous studies available for comparison. INDICATIONS : Short of breath. MEDICAL HISTORY : Myocardial infarction. Hypercholesterolemia. Renal failure, chronic. SURGICAL HISTORY : Cervical fusion. CABG. Coronary artery stent ENCOUNTER: Subsequent ACUITY: 2 weeks PAIN SCORE: 0/10 LOCATION: Bilateral chest FINDINGS: Median sternotomy wires are noted status post cardiac surgery. A right internal jugular VasCath has its tip in good position in the superior vena cava. There is no pneumothorax. The lungs are clear. The heart is enlarged. Small bilateral pleural effusions are likely. CONCLUSION: 1. Cardiomegaly. 2. Small bilateral pleural effusions. 3. Right internal jugular VasCath has its tip in the superior vena cava. There is no pneumothorax. Eugene Moon MD on December 14, 2016 at 21:00 Board Certified Radiologist. This report was verified electronically.
[2016-12-14] MEDS: ATORVASTATIN 40 MG TAB PO SCH (22:07)
[2016-12-15] VITALS: BP 157/80; PULSE 63; RESP 18; TEMP 96; O2SAT 95
[2016-12-15] MEDS: oxyCODONE/ACETAMINOPHEN 5 MG/325 MG TAB PO PRN ×5 (00:04→22:15)
[2016-12-15 07:54] VITALS: BP 168/87; PULSE 60; RESP 18; TEMP 96.1; O2SAT 94
[2016-12-15] MEDS: ASCORBIC ACID 500 MG TAB PO SCH (07:56)
[2016-12-15] MEDS: CALCITRIOL 0.25 MCG CAP PO SCH (07:56)
[2016-12-15] MEDS: CYANOCOBALAMIN 1,000 MCG TAB PO SCH (07:57)
[2016-12-15] MEDS: hydrALAZINE HCL 100 MG TAB PO SCH ×2 (07:57→22:06)
[2016-12-15] MEDS: PANTOPRAZOLE SOD 40 MG DELAYED RELEASE TAB PO SCH (07:57)
[2016-12-15] MEDS: MORPHINE SULFATE 15 MG CONTROLLED RELEASE TAB PO SCH ×2 (07:57→22:08)
[2016-12-15] MEDS: MULTIVITAMIN TAB PO SCH (07:57)
[2016-12-15] MEDS: ASPIRIN EC 81 MG TABEC PO SCH (07:58)
[2016-12-15] MEDS: CLOPIDOGREL 75 MG TAB PO SCH (07:58)
[2016-12-15] MEDS: METOPROLOL SUCCINATE 50 MG EXTENDED RELEASE TAB PO SCH (07:58)
[2016-12-15] MEDS: FERROUS SULFATE 325 MG (65 MG ELEMENTAL IRON) TAB PO SCH ×3 (07:58→16:47)
[2016-12-15] MEDS: LACTOBACILLUS ACIDOPHILUS TAB PO SCH ×3 (07:58→16:48)
[2016-12-15] MEDS: amLODIPine BESYLATE 5 MG TAB PO SCH (07:58)
[2016-12-15] MEDS: SODIUM CHLORIDE 0.9% FLUSH 10 ML FLUSH IV FLUSH SCH ×2 (07:59→22:08)
[2016-12-15] MEDS: SODIUM CHLORIDE 0.9% FLUSH 10 ML FLUSH IVF SCH (07:59)
[2016-12-15] MEDS: NYSTATIN 100,000 UNIT/GM CREAM 15 GM TOPICAL SCH ×2 (08:02→22:11)
[2016-12-15 08:50] LABS: AUTOMATED NEUTROPHIL # 3.6 TH/MM3 (1.8-7.7); BASOPHIL # 0.1 TH/MM3 (0-0.2); BASOPHIL % 1.1 % (0.0-2.0); EOSINOPHIL # 0.3 TH/MM3 (0-0.4); EOSINOPHIL % 5.1 % (0.0-4.0); HEMO FLAGS DIFF FINAL; LYMPHOCYTE # 1.9 TH/MM3 (1.0-4.8); MEAN CELL VOLUME 84.7 FL (80.0-100.0); MEAN CORPUSCULAR HEMOGLOBIN 27.2 PG (27.0-34.0); MEAN CORPUSCULAR HGB CONC 32.2 % (32.0-36.0); MONO % 8.4 % (0.0-8.0); NEUT % 55.4 % (16.0-70.0); PLATELET COUNT 165 TH/MM3 (150-450); RED CELL DISTRIBUTION WIDTH 17.5 % (11.6-17.2); WHITE BLOOD COUNT 6.4 TH/MM3 (4.0-11.0)
[2016-12-15 09:05] LABS: ANION GAP 7 MEQ/L (5-15); AST (GOT) 13 U/L (15-37); BLOOD UREA NITROGEN 48 MG/DL (7-18); CHLORIDE 105 MEQ/L (98-107); GLOMERULAR FILTRATION RATE 17 ML/MIN (>89); POTASSIUM 5.6 MEQ/L (3.5-5.1); SODIUM (NA) 138 MEQ/L (136-145)
[2016-12-15 09:09] LABS: ALKALINE PHOSPHATASE 91 U/L (45-117); ALT (GPT) 14 U/L (12-78); TOTAL BILIRUBIN ADULT 0.3 MG/DL (0.2-1.0)
--- NOTE | 2016-12-15 10:33 | HHI.NPPN ---
Subjective History of Present Illness 61-year-old male known to me from before with past medical history of chronic kidney disease and single kidney, history of peripheral vascular disease, hypertension, hyperlipidemia, partial small-bowel obstruction, history of paraplegia, history of neobladder formation with neurogenic bladder, who was admitted at [facility] for rehabilitation. I saw the patient when he was admitted in September and at that time he had creatinine as high as 6.3 and it improved to around 2.2 to 2.4 and it has been gradually going up. Additional Remarks Patient is alert, breathing is much better, eating well, not in distress. Review of Systems General Constitutional: Fatigue Respiratory Lungs: SOB Cardiovascular Cardiac: Edema Objective Data Data Vital Signs Date Time Temp Pulse Resp B/P (MAP) Pulse Ox O2 Delivery O2 Flow Rate FiO2 12/15/16 10:01 21 12/15/16 08:51 Room Air 12/15/16 07:54 96.1 60 18 168/87 (114) 94 12/15/16 00:00 96.0 63 18 157/80 (105) 95 12/14/16 21:40 Room Air 12/14/16 21:25 21 12/14/16 20:00 96.8 64 18 175/91 (119) 97 12/14/16 16:00 96.4 61 18 154/86 (108) 97 12/14/16 12:00 97.3 79 18 149/91 (110) 95 -: 12/15/16 0810 12/15/16 0810 Physical Exam General Appearance: Well Nourished, No Acute Distress, Comfortable Eyes Eye Exam: Pupils Equal Throat Throat Exam: Oral Mucosa [place] & Moist Pulmonary Resp Exam: No Distress, Rhonchi, Decreased Bases, Diminished Breath Sounds Cardiology CV Exam: Regular Gastrointestinal/Abdomen GI Exam: Soft, Non-Tender, Distended GI Remarks ileal conduit opening. Extremeties Extremities Exam: Moderate Edema, Pitting Edema Neurologic Neuro Exam: Alert, Awake, Oriented Psychiatric Psych Exam: Appropriate Responses Assessment/Plan Assessment Summary: VIJAY/Acute Renal Failure, Hypotension, CKD Stage IV Electrolyte Assessment: Metabolic Acidosis Problem List: (1) Anemia in chronic kidney disease ICD Codes: N18.9 - Chronic kidney disease, unspecified; D63.1 - Anemia in chronic kidney disease Status: Acute (2) Hypertension ICD Codes: I10 - Essential (primary) hypertension Status: Chronic (3) Acidemia ICD Codes: E87.2 - Acidosis Status: Acute (4) Acute kidney injury ICD Codes: N17.9 - Acute kidney failure, unspecified Status: Acute (5) Paraplegia ICD Codes: G82.20 - Paraplegia Status: Chronic (6) Paraplegia ICD Codes: G82.20 - Paraplegia Status: Acute (7) Acute on chronic kidney failure ICD Codes: N17.9 - Acute kidney failure, unspecified; N18.9 - Chronic kidney disease, unspecified Status: Chronic Plan Patient has increase in BUN and Creatinine. Also has metabolic acidosis. Seen by urology, possibly have obstructive uropathy. BP is improving. Patient has moderate Hydronephrosis on rt. side, has single kidney. Renal scan did not show uptake, possible due to poor renal function. Creatinine is now stable at 3.5. Urine out put is good. HD has been on hold. Creatinine is still 3.7, will keep Vascath for now. Encourage oral intake. Problem Qualifiers (1) Anemia in chronic kidney disease: Qualified Codes: N18.4 - Chronic kidney disease, stage 4 (severe); D63.1 - Anemia in chronic kidney disease Lynsey Goldman MD Dec 15, 2016 10:33
[2016-12-15] MEDS ORDERED: SODIUM POLYSTYRENE SULFONATE SUSP 15 GM/60 ML CUP PO ONE (11:00)
[2016-12-15 12:55] VITALS: BP 158/79; PULSE 58; RESP 16; TEMP 96.7; O2SAT 97
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
[2016-12-15 16:00] VITALS: BP 156/82; PULSE 60; RESP 16; TEMP 96.5; O2SAT 94
[2016-12-15] MEDS: BACLOFEN 10 MG TAB PO SCH ×2 (16:47→22:06)
[2016-12-15] MEDS: SODIUM HYPOCHLORITE 0.25% 500 ML BTL OTHER SCH (16:48)
--- NOTE | 2016-12-15 18:48 | HHI.PR ---
Subjective Remarks alert no SOB at rest Objective Vital Signs Date Time Temp Pulse Resp B/P (MAP) Pulse Ox O2 Delivery O2 Flow Rate FiO2 12/15/16 16:00 96.5 60 16 156/82 (106) 94 12/15/16 12:55 96.7 58 16 158/79 (105) 97 12/15/16 10:01 21 12/15/16 08:51 Room Air 12/15/16 07:54 96.1 60 18 168/87 (114) 94 12/15/16 00:00 96.0 63 18 157/80 (105) 95 12/14/16 21:40 Room Air 12/14/16 21:25 21 12/14/16 20:00 96.8 64 18 175/91 (119) 97 I/O 12/14/16 12/14/16 12/14/16 12/15/16 12/15/16 12/15/16 07:00 15:00 23:00 07:00 15:00 23:00 Intake Total 480 ml 960 ml Output Total 1550 ml 2550 ml 950 ml Balance -1070 ml -1590 ml -950 ml Intake Oral 480 ml 960 ml Output Urine Total 1550 ml 2550 ml 950 ml Result Diagram: 12/15/16 0810 12/15/16 0810 Objective Remarks GENERAL: SKIN: Warm and dry. HEAD: Atraumatic. Normocephalic. EYES: Pupils equal and round. No scleral icterus. No injection or drainage. ENT: No nasal bleeding or discharge. Mucous membranes pink and moist. NECK: Trachea midline. No JVD. CARDIOVASCULAR: Regular rate and rhythm. RESPIRATORY: No accessory muscle use. Clear to auscultation. Breath sounds equal bilaterally. GASTROINTESTINAL: Abdomen soft, non-tender, nondistended. Hepatic and splenic margins not palpable. MUSCULOSKELETAL: Extremities without clubbing, cyanosis, or edema. No obvious deformities. NEUROLOGICAL: Awake and alert. No obvious cranial nerve deficits. Motor grossly within normal limits. Five out of 5 muscle strength in the arms and legs. Normal speech. PSYCHIATRIC: Appropriate mood and affect; insight and judgment normal. Laboratory Tests Test 12/06/16 00:29 12/06/16 05:09 12/07/16 07:20 12/07/16 11:42 Blood Urea Nitrogen 43 MG/DL (7-18) 46 MG/DL (7-18) Creatinine 4.59 MG/DL (0.60-1.30) 4.43 MG/DL (0.60-1.30) Total Protein 5.2 GM/DL (6.4-8.2) 5.9 GM/DL (6.4-8.2) Calcium Level 5.9 MG/DL (8.5-10.1) 7.1 MG/DL (8.5-10.1) Potassium Level 2.9 MEQ/L (3.5-5.1) 2.8 MEQ/L (3.5-5.1) 3.4 MEQ/L (3.5-5.1) Chloride Level 108 MEQ/L (98-107) 112 MEQ/L (98-107) Estimat Glomerular Filtration Rate 13 ML/MIN (>89) 14 ML/MIN (>89) Protein Corrected Calcium 6.7 MG/DL (8.5-10.1) 7.7 MG/DL (8.5-10.1) Sodium Level 147 MEQ/L (136-145) Test 12/07/16 23:48 12/08/16 10:58 Arterial Blood pH 7.31 (7.380-7.420) Arterial Blood Partial Pressure CO2 51 mmHg (38-42) Arterial Blood Oxygen Content 11.6 Vol % (12.0-20.0) Blood Gas Hemoglobin 8.6 G/DL (12.0-16.0) Red Blood Count 3.11 MIL/MM3 (4.50-5.90) Hemoglobin 8.6 GM/DL (13.0-17.0) Hematocrit 26.5 % (39.0-51.0) Red Cell Distribution Width 19.4 % (11.6-17.2) Platelet Count 143 TH/MM3 (150-450) Neutrophils (%) (Auto) 72.1 % (16.0-70.0) Lymphocytes # (Auto) 0.9 TH/MM3 (1.0-4.8) Blood Urea Nitrogen 49 MG/DL (7-18) Creatinine 4.30 MG/DL (0.60-1.30) Random Glucose 164 MG/DL (74-106) Calcium Level 8.0 MG/DL (8.5-10.1) Potassium Level 3.4 MEQ/L (3.5-5.1) Chloride Level 110 MEQ/L (98-107) Estimat Glomerular Filtration Rate 14 ML/MIN (>89) Assessment and Plan Assessment and Plan renal failure improving ayaz plan o2 as needed dialysis npsg post d/c Kathy Chavez MD Dec 15, 2016 18:48
[2016-12-15 20:25] VITALS: BP 140/79; PULSE 59; RESP 18; TEMP 97; O2SAT 96
[2016-12-15] MEDS: ATORVASTATIN 40 MG TAB PO SCH (22:06)
[2016-12-15] MEDS: MELATONIN 5 MG TAB PO PRN ×2 (22:12)
[2016-12-16] VITALS (7 sets, daily range): BP systolic 135–169; BP diastolic 72–85; PULSE 55–68; RESP 16–20; TEMP 96–96.6; O2SAT 90–97
[2016-12-16] MEDS: BACLOFEN 10 MG TAB PO SCH ×3 (04:03→21:51)
[2016-12-16] MEDS: oxyCODONE/ACETAMINOPHEN 5 MG/325 MG TAB PO PRN ×4 (04:04→21:50)
[2016-12-16] MEDS: NYSTATIN 100,000 UNIT/GM CREAM 15 GM TOPICAL SCH ×2 (09:00→21:00)
[2016-12-16] MEDS: SODIUM CHLORIDE 0.9% FLUSH 10 ML FLUSH IV FLUSH SCH ×2 (09:00→21:54)
[2016-12-16] MEDS: METOPROLOL SUCCINATE 50 MG EXTENDED RELEASE TAB PO SCH (09:00)
[2016-12-16] MEDS: SODIUM CHLORIDE 0.9% FLUSH 10 ML FLUSH IVF SCH (09:00)
[2016-12-16] MEDS: VANCOMYCIN 500 MG VIAL (FOR ORAL USE ONLY) PO SCH ×4 (10:18→21:51)
[2016-12-16] MEDS: MORPHINE SULFATE 15 MG CONTROLLED RELEASE TAB PO SCH ×2 (10:20→21:51)
[2016-12-16] MEDS: LACTOBACILLUS ACIDOPHILUS TAB PO SCH ×3 (10:21→18:41)
[2016-12-16] MEDS: hydrALAZINE HCL 100 MG TAB PO SCH ×2 (10:21→21:50)
[2016-12-16] MEDS: PANTOPRAZOLE SOD 40 MG DELAYED RELEASE TAB PO SCH (10:21)
[2016-12-16] MEDS: FERROUS SULFATE 325 MG (65 MG ELEMENTAL IRON) TAB PO SCH ×3 (10:21→18:41)
[2016-12-16] MEDS: ASCORBIC ACID 500 MG TAB PO SCH (10:21)
[2016-12-16] MEDS: MULTIVITAMIN TAB PO SCH (10:21)
[2016-12-16] MEDS: amLODIPine BESYLATE 5 MG TAB PO SCH (10:22)
[2016-12-16] MEDS: CYANOCOBALAMIN 1,000 MCG TAB PO SCH (10:22)
[2016-12-16] MEDS: CLOPIDOGREL 75 MG TAB PO SCH (10:23)
[2016-12-16] MEDS: CALCITRIOL 0.25 MCG CAP PO SCH (10:23)
[2016-12-16] MEDS: ASPIRIN EC 81 MG TABEC PO SCH (10:24)
[2016-12-16 15:14] LABS: HEMATOCRIT 29.1 % (39.0-51.0); MEAN CELL VOLUME 84.3 FL (80.0-100.0); MEAN CORPUSCULAR HEMOGLOBIN 27.1 PG (27.0-34.0); MEAN CORPUSCULAR HGB CONC 32.1 % (32.0-36.0); PLATELET COUNT 199 TH/MM3 (150-450); RED BLOOD COUNT 3.45 MIL/MM3 (4.50-5.90); RED CELL DISTRIBUTION WIDTH 17.5 % (11.6-17.2); REVIEW FLAG FINAL
[2016-12-16 15:33] LABS: POTASSIUM 5.3 MEQ/L (3.5-5.1)
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
--- NOTE | 2016-12-16 16:57 | HHI.PR ---
Subjective Remarks alert no SOB at rest Objective Vital Signs Date Time Temp Pulse Resp B/P (MAP) Pulse Ox O2 Delivery O2 Flow Rate FiO2 12/16/16 11:50 96.0 68 20 157/82 (107) 95 12/16/16 10:10 96 21 12/16/16 08:00 Room Air 12/16/16 07:50 96.6 57 20 135/73 (93) 95 12/16/16 05:25 16 12/16/16 04:30 96.2 55 18 155/78 (103) 95 12/16/16 00:30 96.6 60 18 141/85 (103) 96 12/15/16 23:34 16 12/15/16 22:03 Room Air 21 12/15/16 20:25 97.0 59 18 140/79 (99) 96 I/O 12/15/16 12/15/16 12/15/16 12/16/16 12/16/16 12/16/16 07:00 15:00 23:00 07:00 15:00 23:00 Intake Total 1680 ml Output Total 950 ml 2700 ml 1950 ml Balance -950 ml -1020 ml -1950 ml Intake Oral 1680 ml Output Urine Total 950 ml 2400 ml 1950 ml Stool Total 300 ml # Bowel Movements 1 Result Diagram: 12/16/16 1446 12/16/16 1445 Objective Remarks GENERAL: SKIN: Warm and dry. HEAD: Atraumatic. Normocephalic. EYES: Pupils equal and round. No scleral icterus. No injection or drainage. ENT: No nasal bleeding or discharge. Mucous membranes pink and moist. NECK: Trachea midline. No JVD. CARDIOVASCULAR: Regular rate and rhythm. RESPIRATORY: No accessory muscle use. Clear to auscultation. Breath sounds equal bilaterally. GASTROINTESTINAL: Abdomen soft, non-tender, nondistended. Hepatic and splenic margins not palpable. MUSCULOSKELETAL: Extremities without clubbing, cyanosis, or edema. No obvious deformities. NEUROLOGICAL: Awake and alert. No obvious cranial nerve deficits. Motor grossly within normal limits. Five out of 5 muscle strength in the arms and legs. Normal speech. PSYCHIATRIC: Appropriate mood and affect; insight and judgment normal. Laboratory Tests Test 12/06/16 00:29 12/06/16 05:09 12/07/16 07:20 12/07/16 11:42 Blood Urea Nitrogen 43 MG/DL (7-18) 46 MG/DL (7-18) Creatinine 4.59 MG/DL (0.60-1.30) 4.43 MG/DL (0.60-1.30) Total Protein 5.2 GM/DL (6.4-8.2) 5.9 GM/DL (6.4-8.2) Calcium Level 5.9 MG/DL (8.5-10.1) 7.1 MG/DL (8.5-10.1) Potassium Level 2.9 MEQ/L (3.5-5.1) 2.8 MEQ/L (3.5-5.1) 3.4 MEQ/L (3.5-5.1) Chloride Level 108 MEQ/L (98-107) 112 MEQ/L (98-107) Estimat Glomerular Filtration Rate 13 ML/MIN (>89) 14 ML/MIN (>89) Protein Corrected Calcium 6.7 MG/DL (8.5-10.1) 7.7 MG/DL (8.5-10.1) Sodium Level 147 MEQ/L (136-145) Test 12/07/16 23:48 12/08/16 10:58 Arterial Blood pH 7.31 (7.380-7.420) Arterial Blood Partial Pressure CO2 51 mmHg (38-42) Arterial Blood Oxygen Content 11.6 Vol % (12.0-20.0) Blood Gas Hemoglobin 8.6 G/DL (12.0-16.0) Red Blood Count 3.11 MIL/MM3 (4.50-5.90) Hemoglobin 8.6 GM/DL (13.0-17.0) Hematocrit 26.5 % (39.0-51.0) Red Cell Distribution Width 19.4 % (11.6-17.2) Platelet Count 143 TH/MM3 (150-450) Neutrophils (%) (Auto) 72.1 % (16.0-70.0) Lymphocytes # (Auto) 0.9 TH/MM3 (1.0-4.8) Blood Urea Nitrogen 49 MG/DL (7-18) Creatinine 4.30 MG/DL (0.60-1.30) Random Glucose 164 MG/DL (74-106) Calcium Level 8.0 MG/DL (8.5-10.1) Potassium Level 3.4 MEQ/L (3.5-5.1) Chloride Level 110 MEQ/L (98-107) Estimat Glomerular Filtration Rate 14 ML/MIN (>89) Assessment and Plan Assessment and Plan renal failure improving ayaz plan o2 as needed dialysis npsg post d/c Kathy Chavez MD Dec 16, 2016 16:57
--- NOTE | 2016-12-16 16:59 | HHI.NPPN ---
Subjective History of Present Illness 61-year-old male known to me from before with past medical history of chronic kidney disease and single kidney, history of peripheral vascular disease, hypertension, hyperlipidemia, partial small-bowel obstruction, history of paraplegia, history of neobladder formation with neurogenic bladder, who was admitted at [facility] for rehabilitation. I saw the patient when he was admitted in September and at that time he had creatinine as high as 6.3 and it improved to around 2.2 to 2.4 and it has been gradually going up. Additional Remarks Patient is alert, breathing is much better, has mild Rt. flank pain. Review of Systems General Constitutional: Fatigue Respiratory Lungs: SOB Cardiovascular Cardiac: Edema Objective Data Data Vital Signs Date Time Temp Pulse Resp B/P (MAP) Pulse Ox O2 Delivery O2 Flow Rate FiO2 12/16/16 11:50 96.0 68 20 157/82 (107) 95 12/16/16 10:10 96 21 12/16/16 08:00 Room Air 12/16/16 07:50 96.6 57 20 135/73 (93) 95 12/16/16 05:25 16 12/16/16 04:30 96.2 55 18 155/78 (103) 95 12/16/16 00:30 96.6 60 18 141/85 (103) 96 12/15/16 23:34 16 12/15/16 22:03 Room Air 21 12/15/16 20:25 97.0 59 18 140/79 (99) 96 -: 12/16/16 1446 12/16/16 1445 Physical Exam General Appearance: Well Nourished, No Acute Distress, Comfortable Eyes Eye Exam: Pupils Equal Throat Throat Exam: Oral Mucosa Leland & Moist Pulmonary Resp Exam: No Distress, Rhonchi, Decreased Bases, Diminished Breath Sounds Cardiology CV Exam: Regular Gastrointestinal/Abdomen GI Exam: Soft, Non-Tender, Distended GI Remarks ileal conduit opening. Extremeties Extremities Exam: Moderate Edema, Pitting Edema Neurologic Neuro Exam: Alert, Awake, Oriented Psychiatric Psych Exam: Appropriate Responses Assessment/Plan Assessment Summary: VIJAY/Acute Renal Failure, Hypotension, CKD Stage IV Electrolyte Assessment: Metabolic Acidosis Problem List: (1) Anemia in chronic kidney disease ICD Codes: N18.9 - Chronic kidney disease, unspecified; D63.1 - Anemia in chronic kidney disease Status: Acute (2) Hypertension ICD Codes: I10 - Essential (primary) hypertension Status: Chronic (3) Acidemia ICD Codes: E87.2 - Acidosis Status: Acute (4) Acute kidney injury ICD Codes: N17.9 - Acute kidney failure, unspecified Status: Acute (5) Paraplegia ICD Codes: G82.20 - Paraplegia Status: Chronic (6) Paraplegia ICD Codes: G82.20 - Paraplegia Status: Acute (7) Acute on chronic kidney failure ICD Codes: N17.9 - Acute kidney failure, unspecified; N18.9 - Chronic kidney disease, unspecified Status: Chronic Plan Patient has increase in BUN and Creatinine. Also has metabolic acidosis. Seen by urology, possibly have obstructive uropathy. BP is improving. Patient has moderate Hydronephrosis on rt. side, has single kidney. Renal scan did not show uptake, possible due to poor renal function. Urine out put is good. HD has been on hold. Creatinine is still 3.6 and the GFR is 17 ml/min. Will D/C Vascath. Encourage oral intake. Problem Qualifiers (1) Anemia in chronic kidney disease: Qualified Codes: N18.4 - Chronic kidney disease, stage 4 (severe); D63.1 - Anemia in chronic kidney disease Lynsey Goldman MD Dec 16, 2016 16:59
--- NOTE | 2016-12-16 17:02 | PD.WCN.NOT ---
Wound Consult Description: Consult received from Doctor Clinton for wound management of L heel. Communicated with: Patient and Dr Paniagua Recommendation: Please continue with dakins 1/2 strength soaked gauze on wound bed to left heel with dressing changes for 10 minutes. Remove dakins soaked gauze and pat dry. Apply optifoam AG gentle cut to fit wound size. Secure dressing with rolled gauze and tape. Change dressing every other day. Additional Information: Patient seen on for follow up of wound to left heel. Blue heel raiser boot removed from left foot. Rolled gauze, 4x4, and foam AG removed to reveal a wound measuring 0.6cm x 0.6cm x 0.1cm of 100% red tissue noted and no active drainage with unremarkable periwound. Dressing put back into place and heel put back into blue heel raiser boot. No new recommendations at this time as wound has greatly improved. Yeni Giordano [facility] Dec 16, 2016 17:02
[2016-12-16] MEDS: ATORVASTATIN 40 MG TAB PO SCH (21:51)
[2016-12-17 00:28] VITALS: BP 144/80; PULSE 62; RESP 16; TEMP 96.7; O2SAT 93
[2016-12-17 05:00] VITALS: BP 160/96; PULSE 69; RESP 18; TEMP 96.6; O2SAT 96
[2016-12-17] MEDS: oxyCODONE/ACETAMINOPHEN 5 MG/325 MG TAB PO PRN ×3 (05:10→17:19)
[2016-12-17] MEDS: BACLOFEN 10 MG TAB PO SCH ×3 (05:10→22:50)
[2016-12-17] MEDS: ONDANSETRON HCL 4 MG/2 ML VIAL IV PUSH PRN ×2 (06:21→14:41)
[2016-12-17 07:20] LABS: BASOPHIL # 0.1 TH/MM3 (0-0.2); EOSINOPHIL # 0.3 TH/MM3 (0-0.4); EOSINOPHIL % 3.4 % (0.0-4.0); HEMATOCRIT 29.7 % (39.0-51.0); HEMO FLAGS DIFF FINAL; LYMPH % 15.8 % (9.0-44.0); LYMPHOCYTE # 1.3 TH/MM3 (1.0-4.8); MEAN CELL VOLUME 84.9 FL (80.0-100.0); MEAN CORPUSCULAR HEMOGLOBIN 26.5 PG (27.0-34.0); MEAN CORPUSCULAR HGB CONC 31.2 % (32.0-36.0); MONO % 8.1 % (0.0-8.0); NEUT % 71.7 % (16.0-70.0); PLATELET COUNT 224 TH/MM3 (150-450); RED CELL DISTRIBUTION WIDTH 17.7 % (11.6-17.2); WHITE BLOOD COUNT 8.3 TH/MM3 (4.0-11.0)
[2016-12-17 07:49] LABS: ALT (GPT) 17 U/L (12-78); ANION GAP 9 MEQ/L (5-15); AST (GOT) 12 U/L (15-37); BICARBONATE 24.4 MEQ/L (21.0-32.0); BLOOD UREA NITROGEN 46 MG/DL (7-18); CHLORIDE 107 MEQ/L (98-107); GLOMERULAR FILTRATION RATE 16 ML/MIN (>89); POTASSIUM 5.2 MEQ/L (3.5-5.1); SODIUM (NA) 140 MEQ/L (136-145)
[2016-12-17 07:50] VITALS: BP 150/74; PULSE 97; RESP 20; TEMP 96; O2SAT 94
[2016-12-17 07:51] LABS: ALKALINE PHOSPHATASE 104 U/L (45-117); TOTAL BILIRUBIN ADULT 0.3 MG/DL (0.2-1.0)
[2016-12-17] MEDS: SODIUM CHLORIDE 0.9% FLUSH 10 ML FLUSH IV FLUSH SCH ×2 (09:00→22:53)
[2016-12-17] MEDS: NYSTATIN 100,000 UNIT/GM CREAM 15 GM TOPICAL SCH ×2 (09:00→22:52)
[2016-12-17] MEDS: SODIUM CHLORIDE 0.9% FLUSH 10 ML FLUSH IVF SCH (09:00)
[2016-12-17] MEDS: SODIUM HYPOCHLORITE 0.25% 500 ML BTL OTHER SCH (09:00)
[2016-12-17] MEDS: CLOPIDOGREL 75 MG TAB PO SCH (10:04)
[2016-12-17] MEDS: VANCOMYCIN 500 MG VIAL (FOR ORAL USE ONLY) PO SCH ×4 (10:04→22:51)
[2016-12-17] MEDS: PANTOPRAZOLE SOD 40 MG DELAYED RELEASE TAB PO SCH (10:04)
[2016-12-17] MEDS: CALCITRIOL 0.25 MCG CAP PO SCH (10:04)
[2016-12-17] MEDS: LACTOBACILLUS ACIDOPHILUS TAB PO SCH ×3 (10:05→17:20)
[2016-12-17] MEDS: METOPROLOL SUCCINATE 50 MG EXTENDED RELEASE TAB PO SCH (10:05)
[2016-12-17] MEDS: amLODIPine BESYLATE 5 MG TAB PO SCH (10:05)
[2016-12-17] MEDS: MORPHINE SULFATE 15 MG CONTROLLED RELEASE TAB PO SCH ×2 (10:05→22:51)
[2016-12-17] MEDS: ASCORBIC ACID 500 MG TAB PO SCH (10:05)
[2016-12-17] MEDS: hydrALAZINE HCL 100 MG TAB PO SCH ×2 (10:06→22:50)
[2016-12-17] MEDS: CYANOCOBALAMIN 1,000 MCG TAB PO SCH (10:06)
[2016-12-17] MEDS: MULTIVITAMIN TAB PO SCH (10:06)
[2016-12-17] MEDS: FERROUS SULFATE 325 MG (65 MG ELEMENTAL IRON) TAB PO SCH ×3 (10:06→17:19)
[2016-12-17] MEDS: ASPIRIN EC 81 MG TABEC PO SCH (10:06)
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
[2016-12-17 11:50] VITALS: BP 128/78; PULSE 64; RESP 20; TEMP 96.6; O2SAT 94
[2016-12-17 15:50] VITALS: BP 138/68; PULSE 67; RESP 20; TEMP 96.3; O2SAT 92
--- NOTE | 2016-12-17 15:59 | HHI.PR ---
Subjective Remarks alert no SOB at rest Objective Vital Signs Date Time Temp Pulse Resp B/P (MAP) Pulse Ox O2 Delivery O2 Flow Rate FiO2 12/17/16 11:50 96.6 64 20 128/78 (95) 94 12/17/16 07:50 96.0 97 20 150/74 (99) 94 12/17/16 05:00 96.6 69 18 160/96 (117) 96 12/17/16 00:28 96.7 62 16 144/80 (101) 93 12/16/16 21:20 Room Air 12/16/16 20:00 96.2 65 16 151/72 (98) 90 I/O 12/16/16 12/16/16 12/16/16 12/17/16 12/17/16 12/17/16 07:00 15:00 23:00 07:00 15:00 23:00 Intake Total 1080 ml 480 ml Output Total 1950 ml 2750 ml 900 ml Balance -1950 ml -1670 ml -420 ml Intake Oral 1080 ml 480 ml Output Urine Total 1950 ml 2550 ml 900 ml Stool Total 200 ml Result Diagram: 12/17/16 0703 12/17/16 0703 Objective Remarks GENERAL: SKIN: Warm and dry. HEAD: Atraumatic. Normocephalic. EYES: Pupils equal and round. No scleral icterus. No injection or drainage. ENT: No nasal bleeding or discharge. Mucous membranes pink and moist. NECK: Trachea midline. No JVD. CARDIOVASCULAR: Regular rate and rhythm. RESPIRATORY: No accessory muscle use. Clear to auscultation. Breath sounds equal bilaterally. GASTROINTESTINAL: Abdomen soft, non-tender, nondistended. Hepatic and splenic margins not palpable. MUSCULOSKELETAL: Extremities without clubbing, cyanosis, or edema. No obvious deformities. NEUROLOGICAL: Awake and alert. No obvious cranial nerve deficits. Motor grossly within normal limits. Five out of 5 muscle strength in the arms and legs. Normal speech. PSYCHIATRIC: Appropriate mood and affect; insight and judgment normal. Laboratory Tests Test 12/06/16 00:29 12/06/16 05:09 12/07/16 07:20 12/07/16 11:42 Blood Urea Nitrogen 43 MG/DL (7-18) 46 MG/DL (7-18) Creatinine 4.59 MG/DL (0.60-1.30) 4.43 MG/DL (0.60-1.30) Total Protein 5.2 GM/DL (6.4-8.2) 5.9 GM/DL (6.4-8.2) Calcium Level 5.9 MG/DL (8.5-10.1) 7.1 MG/DL (8.5-10.1) Potassium Level 2.9 MEQ/L (3.5-5.1) 2.8 MEQ/L (3.5-5.1) 3.4 MEQ/L (3.5-5.1) Chloride Level 108 MEQ/L (98-107) 112 MEQ/L (98-107) Estimat Glomerular Filtration Rate 13 ML/MIN (>89) 14 ML/MIN (>89) Protein Corrected Calcium 6.7 MG/DL (8.5-10.1) 7.7 MG/DL (8.5-10.1) Sodium Level 147 MEQ/L (136-145) Test 12/07/16 23:48 12/08/16 10:58 Arterial Blood pH 7.31 (7.380-7.420) Arterial Blood Partial Pressure CO2 51 mmHg (38-42) Arterial Blood Oxygen Content 11.6 Vol % (12.0-20.0) Blood Gas Hemoglobin 8.6 G/DL (12.0-16.0) Red Blood Count 3.11 MIL/MM3 (4.50-5.90) Hemoglobin 8.6 GM/DL (13.0-17.0) Hematocrit 26.5 % (39.0-51.0) Red Cell Distribution Width 19.4 % (11.6-17.2) Platelet Count 143 TH/MM3 (150-450) Neutrophils (%) (Auto) 72.1 % (16.0-70.0) Lymphocytes # (Auto) 0.9 TH/MM3 (1.0-4.8) Blood Urea Nitrogen 49 MG/DL (7-18) Creatinine 4.30 MG/DL (0.60-1.30) Random Glucose 164 MG/DL (74-106) Calcium Level 8.0 MG/DL (8.5-10.1) Potassium Level 3.4 MEQ/L (3.5-5.1) Chloride Level 110 MEQ/L (98-107) Estimat Glomerular Filtration Rate 14 ML/MIN (>89) Assessment and Plan Assessment and Plan renal failure improving ayaz plan o2 as needed dialysis npsg post d/c Kathy Chavez MD Dec 17, 2016 15:59
[2016-12-17 20:00] VITALS: BP 164/79; PULSE 60; RESP 18; TEMP 96.6; O2SAT 97
--- NOTE | 2016-12-17 21:37 | HHI.NPPN ---
Subjective History of Present Illness 61-year-old male known to me from before with past medical history of chronic kidney disease and single kidney, history of peripheral vascular disease, hypertension, hyperlipidemia, partial small-bowel obstruction, history of paraplegia, history of neobladder formation with neurogenic bladder, who was admitted at [facility] for rehabilitation. I saw the patient when he was admitted in September and at that time he had creatinine as high as 6.3 and it improved to around 2.2 to 2.4 and it has been gradually going up. Additional Remarks Patient is alert, seen in early afternoon, no SOB. Review of Systems General Constitutional: Fatigue Respiratory Lungs: SOB Cardiovascular Cardiac: Edema Objective Data Data 12/17/16 12/18/16 18:59 06:59 Intake Total 2040 ml Output Total 2000 ml Balance 40 ml Intake Oral 2040 ml Output Urine Total 1700 ml Stool Total 300 ml Vital Signs Date Time Temp Pulse Resp B/P (MAP) Pulse Ox O2 Delivery O2 Flow Rate FiO2 12/17/16 20:00 96.6 60 18 164/79 (107) 97 12/17/16 15:50 96.3 67 20 138/68 (91) 92 12/17/16 11:50 96.6 64 20 128/78 (95) 94 12/17/16 07:50 96.0 97 20 150/74 (99) 94 12/17/16 05:00 96.6 69 18 160/96 (117) 96 12/17/16 00:28 96.7 62 16 144/80 (101) 93 -: 12/17/16 0703 12/17/16 0703 Physical Exam General Appearance: Well Nourished, No Acute Distress, Comfortable Eyes Eye Exam: Pupils Equal Throat Throat Exam: Oral Mucosa [place] & Moist Pulmonary Resp Exam: No Distress, Rhonchi, Decreased Bases, Diminished Breath Sounds Cardiology CV Exam: Regular Gastrointestinal/Abdomen GI Exam: Soft, Non-Tender, Distended GI Remarks ileal conduit opening. Extremeties Extremities Exam: Moderate Edema, Pitting Edema Neurologic Neuro Exam: Alert, Awake, Oriented Psychiatric Psych Exam: Appropriate Responses Assessment/Plan Assessment Summary: VIJAY/Acute Renal Failure, Hypotension, CKD Stage IV Electrolyte Assessment: Metabolic Acidosis Problem List: (1) Anemia in chronic kidney disease ICD Codes: N18.9 - Chronic kidney disease, unspecified; D63.1 - Anemia in chronic kidney disease Status: Acute (2) Hypertension ICD Codes: I10 - Essential (primary) hypertension Status: Chronic (3) Acidemia ICD Codes: E87.2 - Acidosis Status: Acute (4) Acute kidney injury ICD Codes: N17.9 - Acute kidney failure, unspecified Status: Acute (5) Paraplegia ICD Codes: G82.20 - Paraplegia Status: Chronic (6) Paraplegia ICD Codes: G82.20 - Paraplegia Status: Acute (7) Acute on chronic kidney failure ICD Codes: N17.9 - Acute kidney failure, unspecified; N18.9 - Chronic kidney disease, unspecified Status: Chronic Plan Patient has increase in BUN and Creatinine. Also has metabolic acidosis. Seen by urology, possibly have obstructive uropathy. BP is improving. Patient has moderate Hydronephrosis on rt. side, has single kidney. Renal scan did not show uptake, possible due to poor renal function. Urine out put is good. HD has been on hold. Creatinine increase to 3.9. Get Renal scan for possible obstruction. Vascath not removed , will keep it for now. Problem Qualifiers (1) Anemia in chronic kidney disease: Qualified Codes: N18.4 - Chronic kidney disease, stage 4 (severe); D63.1 - Anemia in chronic kidney disease Lynsey Goldman MD Dec 17, 2016 21:37
[2016-12-17] MEDS: ATORVASTATIN 40 MG TAB PO SCH (22:50)
[2016-12-18] VITALS: BP 130/69; PULSE 57; RESP 18; TEMP 97; O2SAT 97
[2016-12-18] MEDS: oxyCODONE/ACETAMINOPHEN 5 MG/325 MG TAB PO PRN ×4 (00:37→17:57)
[2016-12-18 04:00] VITALS: BP 152/79; PULSE 61; RESP 18; TEMP 96.2; O2SAT 96
[2016-12-18] MEDS: BACLOFEN 10 MG TAB PO SCH ×3 (06:12→20:09)
[2016-12-18 06:44] LABS: BASOPHIL # 0.1 TH/MM3 (0-0.2); EOSINOPHIL # 0.3 TH/MM3 (0-0.4); EOSINOPHIL % 3.7 % (0.0-4.0); HEMATOCRIT 27.3 % (39.0-51.0); HEMO FLAGS DIFF FINAL; LYMPHOCYTE # 1.7 TH/MM3 (1.0-4.8); MEAN CELL VOLUME 85.2 FL (80.0-100.0); MEAN CORPUSCULAR HGB CONC 31.6 % (32.0-36.0); MONO % 7.3 % (0.0-8.0); PLATELET COUNT 200 TH/MM3 (150-450); RED CELL DISTRIBUTION WIDTH 17.2 % (11.6-17.2); WHITE BLOOD COUNT 7.6 TH/MM3 (4.0-11.0)
[2016-12-18 07:15] LABS: ANION GAP 7 MEQ/L (5-15); AST (GOT) 10 U/L (15-37); BICARBONATE 25.7 MEQ/L (21.0-32.0); BLOOD UREA NITROGEN 45 MG/DL (7-18); CHLORIDE 104 MEQ/L (98-107); GLOMERULAR FILTRATION RATE 17 ML/MIN (>89); MAGNESIUM 1.7 MG/DL (1.5-2.5); POTASSIUM 5.6 MEQ/L (3.5-5.1); SODIUM (NA) 137 MEQ/L (136-145)
[2016-12-18 07:19] LABS: ALKALINE PHOSPHATASE 108 U/L (45-117); ALT (GPT) 16 U/L (12-78); TOTAL BILIRUBIN ADULT 0.3 MG/DL (0.2-1.0)
[2016-12-18 08:00] VITALS: BP 180/81; PULSE 60; RESP 20; TEMP 96.3; O2SAT 99
[2016-12-18] MEDS ORDERED: SODIUM POLYSTYRENE SULFONATE SUSP 15 GM/60 ML CUP PO ONE (08:45)
[2016-12-18] MEDS: NYSTATIN 100,000 UNIT/GM CREAM 15 GM TOPICAL SCH ×2 (09:00→20:13)
[2016-12-18] MEDS: LACTOBACILLUS ACIDOPHILUS TAB PO SCH ×3 (09:20→17:56)
[2016-12-18] MEDS: MULTIVITAMIN TAB PO SCH (09:20)
[2016-12-18] MEDS: ONDANSETRON HCL 4 MG/2 ML VIAL IV PUSH PRN ×2 (09:20→18:38)
[2016-12-18] MEDS: VANCOMYCIN 500 MG VIAL (FOR ORAL USE ONLY) PO SCH ×4 (09:20→20:10)
[2016-12-18] MEDS: hydrALAZINE HCL 100 MG TAB PO SCH ×2 (09:20→20:09)
[2016-12-18] MEDS: FERROUS SULFATE 325 MG (65 MG ELEMENTAL IRON) TAB PO SCH ×3 (09:20→17:56)
[2016-12-18] MEDS: CYANOCOBALAMIN 1,000 MCG TAB PO SCH (09:21)
[2016-12-18] MEDS: METOPROLOL SUCCINATE 50 MG EXTENDED RELEASE TAB PO SCH (09:21)
[2016-12-18] MEDS: CLOPIDOGREL 75 MG TAB PO SCH (09:21)
[2016-12-18] MEDS: PANTOPRAZOLE SOD 40 MG DELAYED RELEASE TAB PO SCH (09:21)
[2016-12-18] MEDS: ASCORBIC ACID 500 MG TAB PO SCH (09:21)
[2016-12-18] MEDS: ASPIRIN EC 81 MG TABEC PO SCH (09:21)
[2016-12-18] MEDS: amLODIPine BESYLATE 5 MG TAB PO SCH (09:21)
[2016-12-18] MEDS: SODIUM CHLORIDE 0.9% FLUSH 10 ML FLUSH IVF SCH (09:22)
[2016-12-18] MEDS: SODIUM CHLORIDE 0.9% FLUSH 10 ML FLUSH IV FLUSH SCH ×2 (09:22→20:13)
[2016-12-18] MEDS: MORPHINE SULFATE 15 MG CONTROLLED RELEASE TAB PO SCH ×2 (09:22→20:10)
[2016-12-18] MEDS: CALCITRIOL 0.25 MCG CAP PO SCH (09:35)
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
[2016-12-18] MEDS ORDERED: FUROSEMIDE 40 MG/4 ML VIAL IV PUSH ONE (11:38)
[2016-12-18 12:00] VITALS: BP 126/66; PULSE 58; RESP 16; TEMP 96.2; O2SAT 96
--- NOTE | 2016-12-18 13:03 | RADRPT ---
EXAM DATE/TIME: 12/18/2016 10:49 [place] COMPARISON: CT ABDOMEN & PELVIS W/O CONTRAST, December 02, 2016, 22:21. RENOGRAM W/PHARM (DPTA/LASIX), [facility], 11:01. INDICATIONS : Obstruction. DOSE: 20.6 mCi Tc99m DTPA IV MEDICATION: 40 mg Lasix IV MEDICAL HISTORY : Renal failure, chronic. Hypertension. Paraplegia. SURGICAL HISTORY : Nephrectomy, left. ENCOUNTER: Initial ACUITY: 1 day PAIN SCALE: 0/10 LOCATION: lower quadrant TECHNIQUE: Dynamic images were performed in the posterior projection for a total of 28 minutes. FINDINGS: FLOW: The left kidney is not identified consistent with previous nephrectomy. There is prompt arrival of th e bolus to the right kidney however there is very little renal activity identified. EXCRETION: The renal cortical transit time appears adequate. There is very limited excretion. There is some trac er identified in the proximal right ureter and extending down to the patient's ileal conduit. There i s simply too little excretion to except assess for obstruction. CONCLUSION: 1. Very limited examination secondary to overall poor renal function. This is described in detail abo ve. Tracer is visualized within the right ureter down to the ileal conduit. Ileal conduit is not well seen. 2. The patient is post left nephrectomy. Chet Crocker MD on December 18, 2016 at 12:35 Board Certified Radiologist. This report was verified electronically.
[2016-12-18 16:00] VITALS: BP 141/75; PULSE 58; RESP 16; TEMP 96.4; O2SAT 95
--- NOTE | 2016-12-18 16:17 | HHI.NPPN ---
Subjective History of Present Illness 61-year-old male known to me from before with past medical history of chronic kidney disease and single kidney, history of peripheral vascular disease, hypertension, hyperlipidemia, partial small-bowel obstruction, history of paraplegia, history of neobladder formation with neurogenic bladder, who was admitted at [facility] for rehabilitation. I saw the patient when he was admitted in September and at that time he had creatinine as high as 6.3 and it improved to around 2.2 to 2.4 and it has been gradually going up. Additional Remarks Patient is alert, has mild Rt. flank pain, eating well, no SOB. Review of Systems General Constitutional: Fatigue Respiratory Lungs: SOB Cardiovascular Cardiac: Edema Objective Data Data Vital Signs Date Time Temp Pulse Resp B/P (MAP) Pulse Ox O2 Delivery O2 Flow Rate FiO2 12/18/16 12:00 96.2 58 16 126/66 (86) 96 12/18/16 08:00 96.3 60 20 180/81 (114) 99 12/18/16 04:00 96.2 61 18 152/79 (103) 96 12/18/16 02:54 16 12/18/16 00:00 97.0 57 18 130/69 (89) 97 12/17/16 23:51 16 12/17/16 20:00 96.6 60 18 164/79 (107) 97 -: 12/18/16 0627 12/18/16 0627 Physical Exam General Appearance: Well Nourished, No Acute Distress, Comfortable Eyes Eye Exam: Pupils Equal Throat Throat Exam: Oral Mucosa [place] & Moist Pulmonary Resp Exam: No Distress, Rhonchi, Decreased Bases, Diminished Breath Sounds Cardiology CV Exam: Regular Gastrointestinal/Abdomen GI Exam: Soft, Non-Tender, Distended GI Remarks ileal conduit opening. Extremeties Extremities Exam: Moderate Edema, Pitting Edema Neurologic Neuro Exam: Alert, Awake, Oriented Psychiatric Psych Exam: Appropriate Responses Assessment/Plan Assessment Summary: VIJAY/Acute Renal Failure, Hypotension, CKD Stage IV Electrolyte Assessment: Metabolic Acidosis Problem List: (1) Anemia in chronic kidney disease ICD Codes: N18.9 - Chronic kidney disease, unspecified; D63.1 - Anemia in chronic kidney disease Status: Acute (2) Hypertension ICD Codes: I10 - Essential (primary) hypertension Status: Chronic (3) Acidemia ICD Codes: E87.2 - Acidosis Status: Acute (4) Acute kidney injury ICD Codes: N17.9 - Acute kidney failure, unspecified Status: Acute (5) Paraplegia ICD Codes: G82.20 - Paraplegia Status: Chronic (6) Paraplegia ICD Codes: G82.20 - Paraplegia Status: Acute (7) Acute on chronic kidney failure ICD Codes: N17.9 - Acute kidney failure, unspecified; N18.9 - Chronic kidney disease, unspecified Status: Chronic Plan Patient has increase in BUN and Creatinine. Also has metabolic acidosis. Seen by urology, possibly have obstructive uropathy. BP is improving. Patient has moderate Hydronephrosis on rt. side, has single kidney. Renal scan did not show uptake, possible due to poor renal function. Urine out put is good. HD has been on hold. Creatinine is now 3.6, better. Renal scan noted, unlikely to have obstruction. K is 5.6, will follow. Problem Qualifiers (1) Anemia in chronic kidney disease: Qualified Codes: N18.4 - Chronic kidney disease, stage 4 (severe); D63.1 - Anemia in chronic kidney disease Lynsey Goldman MD Dec 18, 2016 16:17
--- NOTE | 2016-12-18 16:20 | HHI.PR ---
Subjective Remarks alert no SOB at rest Objective Vital Signs Date Time Temp Pulse Resp B/P (MAP) Pulse Ox O2 Delivery O2 Flow Rate FiO2 12/18/16 12:00 96.2 58 16 126/66 (86) 96 12/18/16 08:00 96.3 60 20 180/81 (114) 99 12/18/16 04:00 96.2 61 18 152/79 (103) 96 12/18/16 02:54 16 12/18/16 00:00 97.0 57 18 130/69 (89) 97 12/17/16 23:51 16 12/17/16 20:00 96.6 60 18 164/79 (107) 97 I/O 12/17/16 12/17/16 12/17/16 12/18/16 12/18/16 12/18/16 06:59 14:59 22:59 06:59 14:59 22:59 Intake Total 480 ml 2040 ml Output Total 900 ml 2000 ml 1650 ml Balance -420 ml 40 ml -1650 ml Intake Oral 480 ml 2040 ml Output Urine Total 900 ml 1700 ml 1650 ml Stool Total 300 ml Result Diagram: 12/18/1662612/18/16626 Objective Remarks GENERAL: SKIN: Warm and dry. HEAD: Atraumatic. Normocephalic. EYES: Pupils equal and round. No scleral icterus. No injection or drainage. ENT: No nasal bleeding or discharge. Mucous membranes pink and moist. NECK: Trachea midline. No JVD. CARDIOVASCULAR: Regular rate and rhythm. RESPIRATORY: No accessory muscle use. Clear to auscultation. Breath sounds equal bilaterally. GASTROINTESTINAL: Abdomen soft, non-tender, nondistended. Hepatic and splenic margins not palpable. MUSCULOSKELETAL: Extremities without clubbing, cyanosis, or edema. No obvious deformities. NEUROLOGICAL: Awake and alert. No obvious cranial nerve deficits. Motor grossly within normal limits. Five out of 5 muscle strength in the arms and legs. Normal speech. PSYCHIATRIC: Appropriate mood and affect; insight and judgment normal. Laboratory Tests Test 12/06/16 00:29 12/06/16 05:09 12/07/16 07:20 12/07/16 11:42 Blood Urea Nitrogen 43 MG/DL (7-18) 46 MG/DL (7-18) Creatinine 4.59 MG/DL (0.60-1.30) 4.43 MG/DL (0.60-1.30) Total Protein 5.2 GM/DL (6.4-8.2) 5.9 GM/DL (6.4-8.2) Calcium Level 5.9 MG/DL (8.5-10.1) 7.1 MG/DL (8.5-10.1) Potassium Level 2.9 MEQ/L (3.5-5.1) 2.8 MEQ/L (3.5-5.1) 3.4 MEQ/L (3.5-5.1) Chloride Level 108 MEQ/L (98-107) 112 MEQ/L (98-107) Estimat Glomerular Filtration Rate 13 ML/MIN (>89) 14 ML/MIN (>89) Protein Corrected Calcium 6.7 MG/DL (8.5-10.1) 7.7 MG/DL (8.5-10.1) Sodium Level 147 MEQ/L (136-145) Test 12/07/16 23:48 12/08/16 10:58 Arterial Blood pH 7.31 (7.380-7.420) Arterial Blood Partial Pressure CO2 51 mmHg (38-42) Arterial Blood Oxygen Content 11.6 Vol % (12.0-20.0) Blood Gas Hemoglobin 8.6 G/DL (12.0-16.0) Red Blood Count 3.11 MIL/MM3 (4.50-5.90) Hemoglobin 8.6 GM/DL (13.0-17.0) Hematocrit 26.5 % (39.0-51.0) Red Cell Distribution Width 19.4 % (11.6-17.2) Platelet Count 143 TH/MM3 (150-450) Neutrophils (%) (Auto) 72.1 % (16.0-70.0) Lymphocytes # (Auto) 0.9 TH/MM3 (1.0-4.8) Blood Urea Nitrogen 49 MG/DL (7-18) Creatinine 4.30 MG/DL (0.60-1.30) Random Glucose 164 MG/DL (74-106) Calcium Level 8.0 MG/DL (8.5-10.1) Potassium Level 3.4 MEQ/L (3.5-5.1) Chloride Level 110 MEQ/L (98-107) Estimat Glomerular Filtration Rate 14 ML/MIN (>89) Assessment and Plan Assessment and Plan renal failure improving ayaz plan o2 as needed dialysis npsg post d/c Kathy Chavez MD Dec 18, 2016 16:19
[2016-12-18 17:05] LABS: BLOOD, URINE TRACE (NEG); COMMENT (UR) CULTURE INDICATED; CULTURE IF INDICATED CULTURE INDICATED; GLUCOSE,URINE NEG (NEG); GRANULAR CAST, URINE 3 /lpf; KETONE, URINE NEG (NEG); NITRITE,URINE POS (NEG); PH, URINE 7.5 (5.0-8.5); URINE COLOR LIGHT-YELLOW (YELLW/STRAW)
[2016-12-18] MEDS: ATORVASTATIN 40 MG TAB PO SCH (20:10)
[2016-12-18 21:57] VITALS: BP 154/70; PULSE 101; RESP 18; TEMP 97.9; O2SAT 97
[2016-12-19] VITALS: BP 111/58; PULSE 50; RESP 18; TEMP 96.2; O2SAT 91
[2016-12-19] MEDS: oxyCODONE/ACETAMINOPHEN 5 MG/325 MG TAB PO PRN ×4 (03:50→22:37)
[2016-12-19 04:00] VITALS: BP 133/72; PULSE 71; RESP 18; TEMP 97.7; O2SAT 97
[2016-12-19] MEDS: BACLOFEN 10 MG TAB PO SCH ×3 (05:06→22:37)
[2016-12-19 07:07] LABS: AUTOMATED NEUTROPHIL # 4.6 TH/MM3 (1.8-7.7); BASOPHIL # 0.1 TH/MM3 (0-0.2); EOSINOPHIL # 0.2 TH/MM3 (0-0.4); EOSINOPHIL % 3.2 % (0.0-4.0); HEMATOCRIT 27.5 % (39.0-51.0); HEMO FLAGS DIFF FINAL; LYMPH % 21.9 % (9.0-44.0); LYMPHOCYTE # 1.5 TH/MM3 (1.0-4.8); MEAN CELL VOLUME 85.1 FL (80.0-100.0); MEAN CORPUSCULAR HEMOGLOBIN 27.5 PG (27.0-34.0); MEAN CORPUSCULAR HGB CONC 32.3 % (32.0-36.0); MONO % 7.5 % (0.0-8.0); NEUT % 66.4 % (16.0-70.0); PLATELET COUNT 202 TH/MM3 (150-450); RED BLOOD COUNT 3.23 MIL/MM3 (4.50-5.90); RED CELL DISTRIBUTION WIDTH 17.2 % (11.6-17.2)
[2016-12-19 07:21] LABS: ANION GAP 7 MEQ/L (5-15); AST (GOT) 13 U/L (15-37); BICARBONATE 26.1 MEQ/L (21.0-32.0); BLOOD UREA NITROGEN 43 MG/DL (7-18); CHLORIDE 102 MEQ/L (98-107); GLOMERULAR FILTRATION RATE 16 ML/MIN (>89); POTASSIUM 5.6 MEQ/L (3.5-5.1); SODIUM (NA) 135 MEQ/L (136-145)
[2016-12-19 07:23] LABS: ALT (GPT) 16 U/L (12-78)
[2016-12-19 07:25] LABS: ALKALINE PHOSPHATASE 120 U/L (45-117); TOTAL BILIRUBIN ADULT 0.3 MG/DL (0.2-1.0)
[2016-12-19 07:50] VITALS: BP 137/70; PULSE 60; RESP 20; TEMP 97.9; O2SAT 97
[2016-12-19] MEDS: SODIUM CHLORIDE 0.9% FLUSH 10 ML FLUSH IVF SCH (09:00)
[2016-12-19] MEDS: METOPROLOL SUCCINATE 50 MG EXTENDED RELEASE TAB PO SCH ×2 (09:00→09:55)
[2016-12-19] MEDS: SODIUM HYPOCHLORITE 0.25% 500 ML BTL OTHER SCH (09:00)
[2016-12-19] MEDS ORDERED: SODIUM POLYSTYRENE SULFONATE SUSP 15 GM/60 ML CUP PO ONE (09:00)
[2016-12-19] MEDS: NYSTATIN 100,000 UNIT/GM CREAM 15 GM TOPICAL SCH ×2 (09:00→20:28)
[2016-12-19] MEDS: CLOPIDOGREL 75 MG TAB PO SCH (09:54)
[2016-12-19] MEDS: MULTIVITAMIN TAB PO SCH (09:54)
[2016-12-19] MEDS: ASCORBIC ACID 500 MG TAB PO SCH (09:54)
[2016-12-19] MEDS: CALCITRIOL 0.25 MCG CAP PO SCH (09:54)
[2016-12-19] MEDS: LACTOBACILLUS ACIDOPHILUS TAB PO SCH ×3 (09:54→17:33)
[2016-12-19] MEDS: PANTOPRAZOLE SOD 40 MG DELAYED RELEASE TAB PO SCH (09:55)
[2016-12-19] MEDS: ASPIRIN EC 81 MG TABEC PO SCH (09:55)
[2016-12-19] MEDS: FERROUS SULFATE 325 MG (65 MG ELEMENTAL IRON) TAB PO SCH ×3 (09:55→17:33)
[2016-12-19] MEDS: MORPHINE SULFATE 15 MG CONTROLLED RELEASE TAB PO SCH ×2 (09:55→20:27)
[2016-12-19] MEDS: CYANOCOBALAMIN 1,000 MCG TAB PO SCH (09:56)
[2016-12-19] MEDS: VANCOMYCIN 500 MG VIAL (FOR ORAL USE ONLY) PO SCH ×4 (09:56→20:27)
[2016-12-19] MEDS: amLODIPine BESYLATE 5 MG TAB PO SCH (09:59)
[2016-12-19] MEDS: hydrALAZINE HCL 100 MG TAB PO SCH ×2 (09:59→20:26)
[2016-12-19] MEDS: SODIUM CHLORIDE 0.9% FLUSH 10 ML FLUSH IV FLUSH SCH ×2 (09:59→20:28)
[2016-12-19 11:45] VITALS: BP 117/56; PULSE 50; RESP 20; TEMP 96.8; O2SAT 96
--- NOTE | 2016-12-19 11:49 | HHI.NPPN ---
Subjective History of Present Illness 61-year-old male known to me from before with past medical history of chronic kidney disease and single kidney, history of peripheral vascular disease, hypertension, hyperlipidemia, partial small-bowel obstruction, history of paraplegia, history of neobladder formation with neurogenic bladder, who was admitted at [facility] for rehabilitation. I saw the patient when he was admitted in September and at that time he had creatinine as high as 6.3 and it improved to around 2.2 to 2.4 and it has been gradually going up. Additional Remarks Patient is alert, has mild Rt. flank pain, no fever, no SOB. Review of Systems General Constitutional: Fatigue Respiratory Lungs: SOB Cardiovascular Cardiac: Edema Objective Data Data Vital Signs Date Time Temp Pulse Resp B/P (MAP) Pulse Ox O2 Delivery O2 Flow Rate FiO2 12/19/16 10:15 Room Air 12/19/16 07:50 97.9 60 20 137/70 (92) 97 12/19/16 05:05 16 12/19/16 04:00 97.7 71 18 133/72 (92) 97 12/19/16 00:00 96.2 50 18 111/58 (75) 91 12/18/16 21:57 97.9 101 18 154/70 (98) 97 12/18/16 21:10 18 12/18/16 16:00 96.4 58 16 141/75 (97) 95 12/18/16 12:00 96.2 58 16 126/66 (86) 96 -: 12/19/16 0637 12/19/16 0637 Microbiology 12/18/16 Urine Culture, Received Pending 12/18/16 Gram Stain - Final, Resulted 12/18/16 Wound Culture, Resulted Pending Physical Exam General Appearance: Well Nourished, No Acute Distress, Comfortable Eyes Eye Exam: Pupils Equal Throat Throat Exam: Oral Mucosa [place] & Moist Pulmonary Resp Exam: No Distress, Rhonchi, Decreased Bases, Diminished Breath Sounds Cardiology CV Exam: Regular Gastrointestinal/Abdomen GI Exam: Soft, Non-Tender, Distended GI Remarks ileal conduit opening. Extremeties Extremities Exam: Moderate Edema, Pitting Edema Neurologic Neuro Exam: Alert, Awake, Oriented Psychiatric Psych Exam: Appropriate Responses Assessment/Plan Assessment Summary: VIJAY/Acute Renal Failure, Hypotension, CKD Stage IV Electrolyte Assessment: Metabolic Acidosis Problem List: (1) Anemia in chronic kidney disease ICD Codes: N18.9 - Chronic kidney disease, unspecified; D63.1 - Anemia in chronic kidney disease Status: Acute (2) Hypertension ICD Codes: I10 - Essential (primary) hypertension Status: Chronic (3) Acidemia ICD Codes: E87.2 - Acidosis Status: Acute (4) Acute kidney injury ICD Codes: N17.9 - Acute kidney failure, unspecified Status: Acute (5) Paraplegia ICD Codes: G82.20 - Paraplegia Status: Chronic (6) Paraplegia ICD Codes: G82.20 - Paraplegia Status: Acute (7) Acute on chronic kidney failure ICD Codes: N17.9 - Acute kidney failure, unspecified; N18.9 - Chronic kidney disease, unspecified Status: Chronic Plan Patient has increase in BUN and Creatinine. Also has metabolic acidosis. Seen by urology, possibly have obstructive uropathy. BP is improving. Patient has moderate Hydronephrosis on rt. side, has single kidney. Renal scan did not show uptake, possible due to poor renal function. Urine out put is good. HD has been on hold. Creatinine is now 3.8, has GFR of 16-17 ml/min, off HD. Renal scan noted, unlikely to have obstruction. K is 5.6, give Kayexalate. Problem Qualifiers (1) Anemia in chronic kidney disease: Qualified Codes: N18.4 - Chronic kidney disease, stage 4 (severe); D63.1 - Anemia in chronic kidney disease Lynsey Goldman MD Dec 19, 2016 11:49
[2016-12-19 15:30] VITALS: BP 159/84; PULSE 63; RESP 20; TEMP 96.8; O2SAT 98
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
[2016-12-19] MEDS: LEVOFLOXACIN 250 MG TAB PO SCH (16:18)
[2016-12-19 20:00] VITALS: BP 154/71; PULSE 69; RESP 20; TEMP 98.3; O2SAT 99
[2016-12-19] MEDS: ATORVASTATIN 40 MG TAB PO SCH (20:28)
[2016-12-20] VITALS: BP 124/76; PULSE 60; RESP 20; TEMP 97.8; O2SAT 97
[2016-12-20 04:00] VITALS: BP 166/76; PULSE 64; RESP 20; TEMP 98.2; O2SAT 94
[2016-12-20] MEDS: oxyCODONE/ACETAMINOPHEN 5 MG/325 MG TAB PO PRN ×4 (04:42→21:48)
[2016-12-20] MEDS: BACLOFEN 10 MG TAB PO SCH ×3 (04:44→21:38)
[2016-12-20 07:30] VITALS: BP 156/79; PULSE 68; RESP 20; TEMP 97.7; O2SAT 99
[2016-12-20] MEDS: VANCOMYCIN 500 MG VIAL (FOR ORAL USE ONLY) PO SCH ×4 (09:06→21:38)
[2016-12-20] MEDS: ASPIRIN EC 81 MG TABEC PO SCH (09:07)
[2016-12-20] MEDS: hydrALAZINE HCL 100 MG TAB PO SCH ×2 (09:07→21:39)
[2016-12-20] MEDS: LACTOBACILLUS ACIDOPHILUS TAB PO SCH ×3 (09:07→17:01)
[2016-12-20] MEDS: CYANOCOBALAMIN 1,000 MCG TAB PO SCH (09:08)
[2016-12-20] MEDS: ASCORBIC ACID 500 MG TAB PO SCH (09:08)
[2016-12-20] MEDS: METOPROLOL SUCCINATE 50 MG EXTENDED RELEASE TAB PO SCH (09:08)
[2016-12-20] MEDS: MORPHINE SULFATE 15 MG CONTROLLED RELEASE TAB PO SCH ×2 (09:09→21:47)
[2016-12-20] MEDS: CLOPIDOGREL 75 MG TAB PO SCH (09:09)
[2016-12-20] MEDS: LEVOFLOXACIN 250 MG TAB PO SCH (09:09)
[2016-12-20] MEDS: amLODIPine BESYLATE 5 MG TAB PO SCH (09:09)
[2016-12-20] MEDS: PANTOPRAZOLE SOD 40 MG DELAYED RELEASE TAB PO SCH (09:09)
[2016-12-20] MEDS: FERROUS SULFATE 325 MG (65 MG ELEMENTAL IRON) TAB PO SCH ×3 (09:09→17:01)
[2016-12-20] MEDS: MULTIVITAMIN TAB PO SCH (09:10)
[2016-12-20] MEDS: CALCITRIOL 0.25 MCG CAP PO SCH (09:10)
[2016-12-20] MEDS: SODIUM CHLORIDE 0.9% FLUSH 10 ML FLUSH IV FLUSH SCH ×2 (09:17→21:56)
[2016-12-20] MEDS: SODIUM CHLORIDE 0.9% FLUSH 10 ML FLUSH IVF SCH (09:18)
[2016-12-20] MEDS: NYSTATIN 100,000 UNIT/GM CREAM 15 GM TOPICAL SCH ×2 (11:23→21:56)
[2016-12-20 12:20] VITALS: BP 135/71; PULSE 64; RESP 16; TEMP 98.3; O2SAT 96
--- NOTE | 2016-12-20 14:11 | HHI.NPPN ---
Subjective History of Present Illness 61-year-old male known to me from before with past medical history of chronic kidney disease and single kidney, history of peripheral vascular disease, hypertension, hyperlipidemia, partial small-bowel obstruction, history of paraplegia, history of neobladder formation with neurogenic bladder, who was admitted at [facility] for rehabilitation. I saw the patient when he was admitted in September and at that time he had creatinine as high as 6.3 and it improved to around 2.2 to 2.4 and it has been gradually going up. Additional Remarks Patient is alert, eating well, no SOB. Review of Systems General Constitutional: Fatigue Respiratory Lungs: SOB Cardiovascular Cardiac: Edema Objective Data Data Vital Signs Date Time Temp Pulse Resp B/P (MAP) Pulse Ox O2 Delivery O2 Flow Rate FiO2 12/20/16 12:20 98.3 64 16 135/71 (92) 96 12/20/16 09:23 Room Air 12/20/16 07:30 97.7 68 20 156/79 (104) 99 12/20/16 04:00 98.2 64 20 166/76 (106) 94 12/20/16 00:00 97.8 60 20 124/76 (92) 97 12/19/16 20:15 99 Room Air 12/19/16 20:00 98.3 69 20 154/71 (98) 99 12/19/16 15:30 96.8 63 20 159/84 (109) 98 -: 12/19/16 0637 12/19/16 0637 Physical Exam General Appearance: Well Nourished, No Acute Distress, Comfortable Eyes Eye Exam: Pupils Equal Throat Throat Exam: Oral Mucosa [place] & Moist Pulmonary Resp Exam: No Distress, Rhonchi, Decreased Bases, Diminished Breath Sounds Cardiology CV Exam: Regular Gastrointestinal/Abdomen GI Exam: Soft, Non-Tender, Distended GI Remarks ileal conduit opening. Extremeties Extremities Exam: Moderate Edema, Pitting Edema Neurologic Neuro Exam: Alert, Awake, Oriented Psychiatric Psych Exam: Appropriate Responses Assessment/Plan Assessment Summary: VIJAY/Acute Renal Failure, Hypotension, CKD Stage IV Electrolyte Assessment: Metabolic Acidosis Problem List: (1) Anemia in chronic kidney disease ICD Codes: N18.9 - Chronic kidney disease, unspecified; D63.1 - Anemia in chronic kidney disease Status: Acute (2) Hypertension ICD Codes: I10 - Essential (primary) hypertension Status: Chronic (3) Acidemia ICD Codes: E87.2 - Acidosis Status: Acute (4) Acute kidney injury ICD Codes: N17.9 - Acute kidney failure, unspecified Status: Acute (5) Paraplegia ICD Codes: G82.20 - Paraplegia Status: Chronic (6) Paraplegia ICD Codes: G82.20 - Paraplegia Status: Acute (7) Acute on chronic kidney failure ICD Codes: N17.9 - Acute kidney failure, unspecified; N18.9 - Chronic kidney disease, unspecified Status: Chronic Plan Patient has increase in BUN and Creatinine. Also has metabolic acidosis. Seen by urology, possibly have obstructive uropathy. BP is improving. Patient has moderate Hydronephrosis on rt. side, has single kidney. Renal scan did not show uptake, possible due to poor renal function. Urine out put is good. HD has been on hold. Renal scan noted, unlikely to have obstruction. Check BMP in AM. If GFR stays 16-17 ml/min. Problem Qualifiers (1) Anemia in chronic kidney disease: Qualified Codes: N18.4 - Chronic kidney disease, stage 4 (severe); D63.1 - Anemia in chronic kidney disease Lynsey Goldman MD Dec 20, 2016 14:11
[2016-12-20 15:50] VITALS: BP 137/77; PULSE 66; RESP 20; TEMP 98.4; O2SAT 96
[2016-12-20 16:02] LABS: BICARBONATE 25.2 MEQ/L (21.0-32.0)
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
[2016-12-20] MEDS: cefTRIAXone INJ 1,000 MG in SODIUM CHLORIDE 0.9% INJ 100 ML IV SCH (17:01)
[2016-12-20 20:30] VITALS: BP 154/75; PULSE 77; RESP 18; TEMP 99.5; O2SAT 96
[2016-12-20] MEDS: DOCUSATE SODIUM 100 MG CAP PO SCH (21:39)
[2016-12-20] MEDS: ATORVASTATIN 40 MG TAB PO SCH (21:39)
[2016-12-21] VITALS (7 sets, daily range): BP systolic 134–164; BP diastolic 73–89; PULSE 58–73; RESP 16–20; TEMP 96.8–99; O2SAT 93–98
[2016-12-21] MEDS: oxyCODONE/ACETAMINOPHEN 5 MG/325 MG TAB PO PRN ×5 (02:26→21:25)
[2016-12-21] MEDS: BACLOFEN 10 MG TAB PO SCH ×3 (05:45→21:20)
[2016-12-21 07:50] LABS: BICARBONATE 23.5 MEQ/L (21.0-32.0); POTASSIUM 4.7 MEQ/L (3.5-5.1)
[2016-12-21] MEDS: NYSTATIN 100,000 UNIT/GM CREAM 15 GM TOPICAL SCH ×2 (09:00→21:00)
[2016-12-21] MEDS: LACTOBACILLUS ACIDOPHILUS TAB PO SCH ×3 (10:13→16:13)
[2016-12-21] MEDS: ASPIRIN EC 81 MG TABEC PO SCH (10:14)
[2016-12-21] MEDS: MULTIVITAMIN TAB PO SCH (10:14)
[2016-12-21] MEDS: ASCORBIC ACID 500 MG TAB PO SCH (10:14)
[2016-12-21] MEDS: PANTOPRAZOLE SOD 40 MG DELAYED RELEASE TAB PO SCH (10:15)
[2016-12-21] MEDS: FERROUS SULFATE 325 MG (65 MG ELEMENTAL IRON) TAB PO SCH ×3 (10:15→16:14)
[2016-12-21] MEDS: CYANOCOBALAMIN 1,000 MCG TAB PO SCH (10:15)
[2016-12-21] MEDS: DOCUSATE SODIUM 100 MG CAP PO SCH ×2 (10:15→21:20)
[2016-12-21] MEDS: CALCITRIOL 0.25 MCG CAP PO SCH (10:16)
[2016-12-21] MEDS: CLOPIDOGREL 75 MG TAB PO SCH (10:16)
[2016-12-21] MEDS: hydrALAZINE HCL 100 MG TAB PO SCH ×2 (10:16→21:20)
[2016-12-21] MEDS: amLODIPine BESYLATE 5 MG TAB PO SCH (10:16)
[2016-12-21] MEDS: METOPROLOL SUCCINATE 50 MG EXTENDED RELEASE TAB PO SCH (10:16)
[2016-12-21] MEDS: MORPHINE SULFATE 15 MG CONTROLLED RELEASE TAB PO SCH ×2 (10:18→21:20)
[2016-12-21] MEDS: SODIUM CHLORIDE 0.9% FLUSH 10 ML FLUSH IV FLUSH SCH ×2 (10:24→21:25)
[2016-12-21] MEDS: SODIUM CHLORIDE 0.9% FLUSH 10 ML FLUSH IVF SCH (10:24)
[2016-12-21] MEDS: SODIUM HYPOCHLORITE 0.25% 500 ML BTL OTHER SCH (10:25)
--- NOTE | 2016-12-21 14:49 | HHI.PR ---
Subjective Remarks alert no SOB at rest Objective Vital Signs Date Time Temp Pulse Resp B/P (MAP) Pulse Ox O2 Delivery O2 Flow Rate FiO2 12/21/16 12:00 98.1 73 16 134/73 (93) 93 12/21/16 10:28 Nasal Cannula 1.00 12/21/16 08:00 96.8 63 20 149/74 (99) 98 12/21/16 04:45 98.0 62 18 136/75 (95) 98 12/21/16 00:27 99.0 72 18 138/76 (96) 98 12/20/16 20:30 99.5 77 18 154/75 (101) 96 12/20/16 20:15 98 Nasal Cannula 1.00 12/20/16 15:50 98.4 66 20 137/77 (97) 96 I/O 12/20/16 12/20/16 12/20/16 12/21/16 12/21/16 12/21/16 07:00 15:00 23:00 07:00 15:00 23:00 Intake Total 480 ml 2040 ml 150 ml Output Total 1650 ml 1850 ml 950 ml Balance -1170 ml 190 ml -800 ml Intake Oral 480 ml 2040 ml 150 ml Output Urine Total 1650 ml 1850 ml 950 ml # Bowel Movements 0 Result Diagram: 12/19/16 0637 12/21/16 0627 Objective Remarks GENERAL: SKIN: Warm and dry. HEAD: Atraumatic. Normocephalic. EYES: Pupils equal and round. No scleral icterus. No injection or drainage. ENT: No nasal bleeding or discharge. Mucous membranes pink and moist. NECK: Trachea midline. No JVD. CARDIOVASCULAR: Regular rate and rhythm. RESPIRATORY: No accessory muscle use. Clear to auscultation. Breath sounds equal bilaterally. GASTROINTESTINAL: Abdomen soft, non-tender, nondistended. Hepatic and splenic margins not palpable. MUSCULOSKELETAL: Extremities without clubbing, cyanosis, or edema. No obvious deformities. NEUROLOGICAL: Awake and alert. No obvious cranial nerve deficits. Motor grossly within normal limits. Five out of 5 muscle strength in the arms and legs. Normal speech. PSYCHIATRIC: Appropriate mood and affect; insight and judgment normal. Laboratory Tests Test 12/06/16 00:29 12/06/16 05:09 12/07/16 07:20 12/07/16 11:42 Blood Urea Nitrogen 43 MG/DL (7-18) 46 MG/DL (7-18) Creatinine 4.59 MG/DL (0.60-1.30) 4.43 MG/DL (0.60-1.30) Total Protein 5.2 GM/DL (6.4-8.2) 5.9 GM/DL (6.4-8.2) Calcium Level 5.9 MG/DL (8.5-10.1) 7.1 MG/DL (8.5-10.1) Potassium Level 2.9 MEQ/L (3.5-5.1) 2.8 MEQ/L (3.5-5.1) 3.4 MEQ/L (3.5-5.1) Chloride Level 108 MEQ/L (98-107) 112 MEQ/L (98-107) Estimat Glomerular Filtration Rate 13 ML/MIN (>89) 14 ML/MIN (>89) Protein Corrected Calcium 6.7 MG/DL (8.5-10.1) 7.7 MG/DL (8.5-10.1) Sodium Level 147 MEQ/L (136-145) Test 12/07/16 23:48 12/08/16 10:58 Arterial Blood pH 7.31 (7.380-7.420) Arterial Blood Partial Pressure CO2 51 mmHg (38-42) Arterial Blood Oxygen Content 11.6 Vol % (12.0-20.0) Blood Gas Hemoglobin 8.6 G/DL (12.0-16.0) Red Blood Count 3.11 MIL/MM3 (4.50-5.90) Hemoglobin 8.6 GM/DL (13.0-17.0) Hematocrit 26.5 % (39.0-51.0) Red Cell Distribution Width 19.4 % (11.6-17.2) Platelet Count 143 TH/MM3 (150-450) Neutrophils (%) (Auto) 72.1 % (16.0-70.0) Lymphocytes # (Auto) 0.9 TH/MM3 (1.0-4.8) Blood Urea Nitrogen 49 MG/DL (7-18) Creatinine 4.30 MG/DL (0.60-1.30) Random Glucose 164 MG/DL (74-106) Calcium Level 8.0 MG/DL (8.5-10.1) Potassium Level 3.4 MEQ/L (3.5-5.1) Chloride Level 110 MEQ/L (98-107) Estimat Glomerular Filtration Rate 14 ML/MIN (>89) Assessment and Plan Assessment and Plan renal failure improving ayaz plan INCREASED ACTIVITY o2 as needed dialysis npsg post d/c Kathy Chavez MD Dec 21, 2016 14:49
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
[2016-12-21 16:08] LABS: BLOOD GAS BASE EXCESS -2.9 mmol/L (-2-2); BLOOD GAS CARBOXYHEMOGLOBIN 1.8 % (0-4); BLOOD GAS HCO3 22 mmol/L (22-26); BLOOD GAS METHEMOGLOBIN 1.3 % (0-2); BLOOD GAS O2 HGB SATURATION 95 % (90-100); BLOOD GAS OXYGEN CONTENT 11.8 Vol % (12.0-20.0); BLOOD GAS PCO2 45 mmHg (38-42); BLOOD GAS PO2 102 mmHg (61-120); BLOOD GAS TOTAL HGB 8.7 G/DL (12.0-16.0); TEMP CORR TO 98.6
[2016-12-21 16:09] LABS: CRITICAL VALUE NO; DRAW SITE RT RADIAL; LITER FLOW 1 L/M; NUMBER OF ARTERIAL PUNCTURES 2; OXYGEN DEVICE NASAL CANNULA; STAT NO; ULNAR PULSE PRESENT
[2016-12-21] MEDS: cefTRIAXone INJ 1,000 MG in SODIUM CHLORIDE 0.9% INJ 100 ML IV SCH (16:13)
[2016-12-21 16:30] LABS: AUTOMATED NEUTROPHIL # 4.6 TH/MM3 (1.8-7.7); BASOPHIL # 0.1 TH/MM3 (0-0.2); BASOPHIL % 0.8 % (0.0-2.0); EOSINOPHIL # 0.2 TH/MM3 (0-0.4); EOSINOPHIL % 3.3 % (0.0-4.0); HEMO FLAGS DIFF FINAL; LYMPH % 22.8 % (9.0-44.0); LYMPHOCYTE # 1.6 TH/MM3 (1.0-4.8); MEAN CORPUSCULAR HEMOGLOBIN 27.1 PG (27.0-34.0); MEAN CORPUSCULAR HGB CONC 31.5 % (32.0-36.0); MONO % 8.1 % (0.0-8.0); PLATELET COUNT 217 TH/MM3 (150-450); RED BLOOD COUNT 3.25 MIL/MM3 (4.50-5.90); RED CELL DISTRIBUTION WIDTH 17.4 % (11.6-17.2); WHITE BLOOD COUNT 7.1 TH/MM3 (4.0-11.0)
--- NOTE | 2016-12-21 16:52 | HHI.NPPN ---
Subjective History of Present Illness 61-year-old male known to me from before with past medical history of chronic kidney disease and single kidney, history of peripheral vascular disease, hypertension, hyperlipidemia, partial small-bowel obstruction, history of paraplegia, history of neobladder formation with neurogenic bladder, who was admitted at [facility] for rehabilitation. I saw the patient when he was admitted in September and at that time he had creatinine as high as 6.3 and it improved to around 2.2 to 2.4 and it has been gradually going up. Additional Remarks Patient is alert, eating well, no SOB, has small amount of solid stool in colostomy. Review of Systems General Constitutional: Fatigue Respiratory Lungs: SOB Cardiovascular Cardiac: Edema Objective Data Data Vital Signs Date Time Temp Pulse Resp B/P (MAP) Pulse Ox O2 Delivery O2 Flow Rate FiO2 12/21/16 12:00 98.1 73 16 134/73 (93) 93 12/21/16 10:28 Nasal Cannula 1.00 12/21/16 08:00 96.8 63 20 149/74 (99) 98 12/21/16 04:45 98.0 62 18 136/75 (95) 98 12/21/16 00:27 99.0 72 18 138/76 (96) 98 12/20/16 20:30 99.5 77 18 154/75 (101) 96 12/20/16 20:15 98 Nasal Cannula 1.00 -: 12/21/16 1614 12/21/16 0627 Physical Exam General Appearance: Well Nourished, No Acute Distress, Comfortable Eyes Eye Exam: Pupils Equal Throat Throat Exam: Oral Mucosa [place] & Moist Pulmonary Resp Exam: No Distress, Rhonchi, Decreased Bases, Diminished Breath Sounds Cardiology CV Exam: Regular Gastrointestinal/Abdomen GI Exam: Soft, Non-Tender, Distended GI Remarks ileal conduit opening. Extremeties Extremities Exam: Moderate Edema, Pitting Edema Neurologic Neuro Exam: Alert, Awake, Oriented Psychiatric Psych Exam: Appropriate Responses Assessment/Plan Assessment Summary: VIJAY/Acute Renal Failure, Hypotension, CKD Stage IV Electrolyte Assessment: Metabolic Acidosis Problem List: (1) Anemia in chronic kidney disease ICD Codes: N18.9 - Chronic kidney disease, unspecified; D63.1 - Anemia in chronic kidney disease Status: Acute (2) Hypertension ICD Codes: I10 - Essential (primary) hypertension Status: Chronic (3) Acidemia ICD Codes: E87.2 - Acidosis Status: Acute (4) Acute kidney injury ICD Codes: N17.9 - Acute kidney failure, unspecified Status: Acute (5) Paraplegia ICD Codes: G82.20 - Paraplegia Status: Chronic (6) Paraplegia ICD Codes: G82.20 - Paraplegia Status: Acute (7) Acute on chronic kidney failure ICD Codes: N17.9 - Acute kidney failure, unspecified; N18.9 - Chronic kidney disease, unspecified Status: Chronic Plan Patient has increase in BUN and Creatinine. Also has metabolic acidosis. Seen by urology, possibly have obstructive uropathy. BP is improving. Patient has moderate Hydronephrosis on rt. side, has single kidney. Renal scan did not show uptake, possible due to poor renal function. Urine out put is good. HD has been on hold. Renal scan noted, unlikely to have obstruction. Creatinine is almost same. Possibly will have some more improvement. Problem Qualifiers (1) Anemia in chronic kidney disease: Qualified Codes: N18.4 - Chronic kidney disease, stage 4 (severe); D63.1 - Anemia in chronic kidney disease Lynsey Goldman MD Dec 21, 2016 16:52
[2016-12-21] MEDS: ATORVASTATIN 40 MG TAB PO SCH (21:20)
[2016-12-22 00:45] VITALS: BP 158/75; PULSE 58; RESP 18; TEMP 97.2; O2SAT 99
[2016-12-22] MEDS: MELATONIN 5 MG TAB PO PRN (01:31)
[2016-12-22] MEDS: oxyCODONE/ACETAMINOPHEN 5 MG/325 MG TAB PO PRN ×5 (01:32→21:36)
[2016-12-22 04:35] VITALS: BP 147/63; PULSE 56; RESP 18; TEMP 97.1; O2SAT 98
[2016-12-22] MEDS: BACLOFEN 10 MG TAB PO SCH ×3 (05:35→21:21)
[2016-12-22 08:00] VITALS: BP 140/66; PULSE 54; RESP 18; TEMP 97.7; O2SAT 97
--- NOTE | 2016-12-22 08:28 | HHI.PR ---
Subjective Remarks alert no SOB at rest Objective Vital Signs Date Time Temp Pulse Resp B/P (MAP) Pulse Ox O2 Delivery O2 Flow Rate FiO2 12/22/16 04:35 97.1 56 18 147/63 (91) 98 12/22/16 00:45 97.2 58 18 158/75 (102) 99 12/21/16 21:20 Nasal Cannula 1.00 12/21/16 20:35 97.8 58 19 143/74 (97) 98 12/21/16 17:40 95 Nasal Cannula 1.00 12/21/16 16:00 97.4 58 16 164/89 (114) 97 12/21/16 12:00 98.1 73 16 134/73 (93) 93 12/21/16 10:28 Nasal Cannula 1.00 I/O 12/21/16 12/21/16 12/21/16 12/22/16 12/22/16 12/22/16 07:00 15:00 23:00 07:00 15:00 23:00 Intake Total 150 ml 1440 ml 720 ml Output Total 950 ml 2600 ml 1050 ml Balance -800 ml -1160 ml -330 ml Intake Oral 150 ml 1440 ml 720 ml Output Urine Total 950 ml 2050 ml 1050 ml Stool Total 550 ml # Voids 2 2 # Bowel Movements 2 Result Diagram: 12/21/16 1614 12/21/16 0627 Objective Remarks GENERAL: SKIN: Warm and dry. HEAD: Atraumatic. Normocephalic. EYES: Pupils equal and round. No scleral icterus. No injection or drainage. ENT: No nasal bleeding or discharge. Mucous membranes pink and moist. NECK: Trachea midline. No JVD. CARDIOVASCULAR: Regular rate and rhythm. RESPIRATORY: No accessory muscle use. Clear to auscultation. Breath sounds equal bilaterally. GASTROINTESTINAL: Abdomen soft, non-tender, nondistended. Hepatic and splenic margins not palpable. MUSCULOSKELETAL: Extremities without clubbing, cyanosis, or edema. No obvious deformities. NEUROLOGICAL: Awake and alert. No obvious cranial nerve deficits. Motor grossly within normal limits. Five out of 5 muscle strength in the arms and legs. Normal speech. PSYCHIATRIC: Appropriate mood and affect; insight and judgment normal. Laboratory Tests Test 12/06/16 00:29 12/06/16 05:09 12/07/16 07:20 12/07/16 11:42 Blood Urea Nitrogen 43 MG/DL (7-18) 46 MG/DL (7-18) Creatinine 4.59 MG/DL (0.60-1.30) 4.43 MG/DL (0.60-1.30) Total Protein 5.2 GM/DL (6.4-8.2) 5.9 GM/DL (6.4-8.2) Calcium Level 5.9 MG/DL (8.5-10.1) 7.1 MG/DL (8.5-10.1) Potassium Level 2.9 MEQ/L (3.5-5.1) 2.8 MEQ/L (3.5-5.1) 3.4 MEQ/L (3.5-5.1) Chloride Level 108 MEQ/L (98-107) 112 MEQ/L (98-107) Estimat Glomerular Filtration Rate 13 ML/MIN (>89) 14 ML/MIN (>89) Protein Corrected Calcium 6.7 MG/DL (8.5-10.1) 7.7 MG/DL (8.5-10.1) Sodium Level 147 MEQ/L (136-145) Test 12/07/16 23:48 12/08/16 10:58 Arterial Blood pH 7.31 (7.380-7.420) Arterial Blood Partial Pressure CO2 51 mmHg (38-42) Arterial Blood Oxygen Content 11.6 Vol % (12.0-20.0) Blood Gas Hemoglobin 8.6 G/DL (12.0-16.0) Red Blood Count 3.11 MIL/MM3 (4.50-5.90) Hemoglobin 8.6 GM/DL (13.0-17.0) Hematocrit 26.5 % (39.0-51.0) Red Cell Distribution Width 19.4 % (11.6-17.2) Platelet Count 143 TH/MM3 (150-450) Neutrophils (%) (Auto) 72.1 % (16.0-70.0) Lymphocytes # (Auto) 0.9 TH/MM3 (1.0-4.8) Blood Urea Nitrogen 49 MG/DL (7-18) Creatinine 4.30 MG/DL (0.60-1.30) Random Glucose 164 MG/DL (74-106) Calcium Level 8.0 MG/DL (8.5-10.1) Potassium Level 3.4 MEQ/L (3.5-5.1) Chloride Level 110 MEQ/L (98-107) Estimat Glomerular Filtration Rate 14 ML/MIN (>89) Assessment and Plan Assessment and Plan renal failure improving ayaz pulmonary stable plan INCREASED ACTIVITY o2 as needed dialysis npsg post d/c will sign off see PRN Kathy Chavez MD Dec 22, 2016 08:28
[2016-12-22 08:36] LABS: BICARBONATE 23.9 MEQ/L (21.0-32.0); MAGNESIUM 1.6 MG/DL (1.5-2.5); POTASSIUM 4.8 MEQ/L (3.5-5.1)
[2016-12-22] MEDS: NYSTATIN 100,000 UNIT/GM CREAM 15 GM TOPICAL SCH ×2 (09:00→21:00)
[2016-12-22] MEDS: SODIUM CHLORIDE 0.9% FLUSH 10 ML FLUSH IVF SCH (09:00)
[2016-12-22] MEDS: DOCUSATE SODIUM 100 MG CAP PO SCH ×2 (09:51→21:21)
[2016-12-22] MEDS: METOPROLOL SUCCINATE 50 MG EXTENDED RELEASE TAB PO SCH (09:52)
[2016-12-22] MEDS: ASPIRIN EC 81 MG TABEC PO SCH (09:52)
[2016-12-22] MEDS: FERROUS SULFATE 325 MG (65 MG ELEMENTAL IRON) TAB PO SCH ×3 (09:52→17:55)
[2016-12-22] MEDS: MORPHINE SULFATE 15 MG CONTROLLED RELEASE TAB PO SCH ×2 (09:52→21:22)
[2016-12-22] MEDS: LACTOBACILLUS ACIDOPHILUS TAB PO SCH ×3 (09:52→17:54)
[2016-12-22] MEDS: PANTOPRAZOLE SOD 40 MG DELAYED RELEASE TAB PO SCH (09:52)
[2016-12-22] MEDS: MULTIVITAMIN TAB PO SCH (09:52)
[2016-12-22] MEDS: ASCORBIC ACID 500 MG TAB PO SCH (09:53)
[2016-12-22] MEDS: CYANOCOBALAMIN 1,000 MCG TAB PO SCH (09:53)
[2016-12-22] MEDS: CALCITRIOL 0.25 MCG CAP PO SCH (09:53)
[2016-12-22] MEDS: hydrALAZINE HCL 100 MG TAB PO SCH ×2 (09:53→21:21)
[2016-12-22] MEDS: CLOPIDOGREL 75 MG TAB PO SCH (09:53)
[2016-12-22] MEDS: amLODIPine BESYLATE 5 MG TAB PO SCH (09:53)
[2016-12-22] MEDS: SODIUM CHLORIDE 0.9% FLUSH 10 ML FLUSH IV FLUSH SCH ×2 (09:54→21:21)
--- NOTE | 2016-12-22 12:51 | HHI.IDPN ---
Subjective Subjective Remarks ID Xcover for . 61 yo with spina bifida, ileal conduit he has complicated UTI 2/2pseudomonas adn was treated with Primaxin he also developped C.diff and was started on oral vancomycin It appears that in the last 3 days his UOP was driopping and in the last 24 hrs only 200 cc was recorded His creainine went up to over 5 Urologist saw the pt and suspected obstruction, recommended non contast CT Pt is quite lethargic and not really able to provide reliable historty Hx obtained form the chart Yday pt was [facility] from [facility] His BP was running low and he was transferred to ICU Overnight events reviewed. Sitting in bed. Reports he had stool from rectum and wants Donald to know and coordinate with . Judah RN to let Donald RON know. pt remains afebrile C.diff negative Colostomy site with no e.o infection Ulcer on toe viewed with no e.o infection. Antibiotics Ceftriaxone IV Lines Line sites with no e.o infection Past Medical History reviewed Allergies: Coded Allergies: chlorpromazine (Verified Allergy, Severe, MUSCLE CONTRACTURES, 11/18/16) diatrizoate meglumine (Verified Allergy, Severe, Anaphylaxis, 11/18/16) gadobenic acid (Verified Allergy, Severe, Anaphylaxis, 11/18/16) gadodiamide (Verified Allergy, Severe, Anaphylaxis, 11/18/16) gadoteridol (Verified Allergy, Severe, Anaphylaxis, 11/18/16) iodixanol (Verified Allergy, Severe, Anaphylaxis, 11/18/16) iohexol (Verified Allergy, Severe, Anaphylaxis, 11/18/16) prochlorperazine (Verified Allergy, Severe, MUSCLE CONTRACTURES, 11/18/16) Objective . Vital Signs Date Time Temp Pulse Resp B/P (MAP) Pulse Ox O2 Delivery O2 Flow Rate FiO2 12/22/16 08:00 97.7 54 18 140/66 (90) 97 12/22/16 04:35 97.1 56 18 147/63 (91) 98 12/22/16 00:45 97.2 58 18 158/75 (102) 99 12/21/16 21:20 Nasal Cannula 1.00 12/21/16 20:35 97.8 58 19 143/74 (97) 98 12/21/16 17:40 95 Nasal Cannula 1.00 12/21/16 16:00 97.4 58 16 164/89 (114) 97 . Laboratory Tests Test 12/21/16 16:14 White Blood Count 7.1 TH/MM3 Red Blood Count 3.25 MIL/MM3 Hemoglobin 8.8 GM/DL Hematocrit 28.0 % Mean Corpuscular Volume 86.0 FL Mean Corpuscular Hemoglobin 27.1 PG Mean Corpuscular Hemoglobin Concent 31.5 % Red Cell Distribution Width 17.4 % Platelet Count 217 TH/MM3 Mean Platelet Volume 7.4 FL Neutrophils (%) (Auto) 65.0 % Lymphocytes (%) (Auto) 22.8 % Monocytes (%) (Auto) 8.1 % Eosinophils (%) (Auto) 3.3 % Basophils (%) (Auto) 0.8 % Neutrophils # (Auto) 4.6 TH/MM3 Lymphocytes # (Auto) 1.6 TH/MM3 Monocytes # (Auto) 0.6 TH/MM3 Eosinophils # (Auto) 0.2 TH/MM3 Basophils # (Auto) 0.1 TH/MM3 CBC Comment DIFF FINAL Differential Comment Laboratory Tests Test 12/20/16 14:58 12/21/16 06:27 12/21/16 16:14 12/22/16 07:30 Blood Urea Nitrogen 47 MG/DL 45 MG/DL 42 MG/DL Creatinine 3.73 MG/DL 3.66 MG/DL 3.44 MG/DL Random Glucose 99 MG/DL 98 MG/DL 85 MG/DL Calcium Level 8.4 MG/DL 8.5 MG/DL 8.0 MG/DL Sodium Level 140 MEQ/L 141 MEQ/L 140 MEQ/L Potassium Level 5.0 MEQ/L 4.7 MEQ/L 4.8 MEQ/L Chloride Level 109 MEQ/L 109 MEQ/L 108 MEQ/L Carbon Dioxide Level 25.2 MEQ/L 23.5 MEQ/L 23.9 MEQ/L Anion Gap 6 MEQ/L 9 MEQ/L 8 MEQ/L Estimat Glomerular Filtration Rate 17 ML/MIN 17 ML/MIN 18 ML/MIN Ammonia 28 MCMOL/L Magnesium Level 1.6 MG/DL Imaging Last Impressions Skull X-Ray 12/03/16 0000 Signed Impressions: Service Date/Time: November 18:15 - CONCLUSION: No foreign bodies to contraindicate MRI. Rafi Helton MD Cervical Spine MRI 12/03/16 0000 Signed Impressions: Service Date/Time: November 18:27 - CONCLUSION: Extremely limited exam due to low [id number], severe motion artifact and limited anatomic detail. Findings as above. Sammy Eduardo MD Abdomen/Pelvis CT 12/02/16 0800 Signed Impressions: Service Date/Time: Friday, December 02, 2016 22:21 - CONCLUSION: 1. Small to moderate bilateral effusions, increased from October 18 with compressive atelectasis in both lungs. 2. Stable mild to moderate right-sided hydronephrosis with ureteral diversion into a neobladder. Also left lower quadrant ostomy and right lower quadrant urostomy. 3. Postoperative left nephrectomy and cholecystectomy. No bowel obstruction, free air or free fluid. Previous fixation left hemipelvis and proximal left femur. Nura Ramirez MD Carotid Artery Ultrasound 12/02/16 0000 Signed Impressions: Service Date/Time: Friday, December 02, 2016 12:09 - CONCLUSION: Normal hemodynamic profile both carotids, characteristic of less than 50%% stenosis. Nikita Aguilar MD Physical Exam CONSTITUTIONAL/GENERAL: This is an obese male patient, looks lethargic, sick morbidly obese TUBES/LINES/DRAINS: SKIN: No jaundice, rashes, or lesions. EYES: Pupils equal and round and reactive. Extraocular motions intact. No scleral icterus. No injection or drainage. Fundi not examined. ENT: Hearing grossly normal. Nose without bleeding or purulent drainage. Throat without visible erythema, exudates, masses, or lesions. CARDIOVASCULAR: Regular rate and rhythm without murmurs, gallops, or rubs. No JVD. Peripheral pulses symmetric. RESPIRATORY/CHEST: Symmetric, unlabored respirations. Clear to auscultation. Breath sounds equal bilaterally. No wheezes, rales, or rhonchi. GASTROINTESTINAL: Abdomen soft, non-tender, quite distended. No hepato- splenomegaly, or palpable masses. No guarding. Bowel sounds present. Colostomy in place with large amount of liquid stool : ilea conduit in RLQ with healy in , pink, draining large amount of fairly clear urine MUSCULOSKELETAL: Extremities without clubbing, cyanosis, quite prominent 3+ edema. R foot amputation (TMA) NEUROLOGICAL: Fully awake and alert . Paraplegia @ b/l BUE motor 5-/5 PSYCHIATRIC: No obvious anxiety/depression. no apparent hallucinations or other psychotic thought process. Assessment & Plan Remarks ARF/CKD - post obstructive mechanism; now obstruction seemed to be relieved - pt is non oliguric COmplicated UTI, ESBL+ E.coli, PSAE ; repet urine clx negative (prelim) C.diff - improving No e/o new sepsis Recs: DC Ceftriaxone IV Wound colostomy site culture with multiple organisms likely colonization Toe wound with no e.o infection. Continue wound care. UA from old healy. Date could not be traced. D.w DOCUMENT CONTROL SUPERVISOR Renée to discontinue current healy and place a new one. Obtain UA from new healy. Observe off antibiotics as clinically stable with no e.o infection. Will sign off please call ID licensed tax consultant back if any change in clinical condition , results of UA if abnormal (new healy specimen). Kerry Guzman MD Dec 22, 2016 12:51
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
[2016-12-22 16:00] VITALS: BP 135/61; PULSE 58; RESP 18; TEMP 97.9; O2SAT 96
[2016-12-22 20:11] VITALS: O2SAT 96
[2016-12-22 20:40] VITALS: BP 119/62; PULSE 54; RESP 19; TEMP 98.2; O2SAT 98
[2016-12-22] MEDS: ATORVASTATIN 40 MG TAB PO SCH (21:21)
--- NOTE | 2016-12-22 22:13 | HHI.NPPN ---
Subjective History of Present Illness 61-year-old male known to me from before with past medical history of chronic kidney disease and single kidney, history of peripheral vascular disease, hypertension, hyperlipidemia, partial small-bowel obstruction, history of paraplegia, history of neobladder formation with neurogenic bladder, who was admitted at [facility] for rehabilitation. I saw the patient when he was admitted in September and at that time he had creatinine as high as 6.3 and it improved to around 2.2 to 2.4 and it has been gradually going up. Additional Remarks Patient is alert, eating well, no abd. pain, not in distress. Review of Systems General Constitutional: Fatigue Respiratory Lungs: SOB Cardiovascular Cardiac: Edema Objective Data Data 12/22/16 12/23/16 19:00 07:00 Intake Total 960 ml Output Total 800 ml Balance 160 ml Intake Oral 960 ml Output Urine Total 800 ml Vital Signs Date Time Temp Pulse Resp B/P (MAP) Pulse Ox O2 Delivery O2 Flow Rate FiO2 12/22/16 20:11 96 Nasal Cannula 1.00 12/22/16 16:00 97.9 58 18 135/61 (85) 96 12/22/16 08:00 Room Air 12/22/16 08:00 97.7 54 18 140/66 (90) 97 12/22/16 04:35 97.1 56 18 147/63 (91) 98 12/22/16 00:45 97.2 58 18 158/75 (102) 99 -: 12/21/16 1614 12/22/16 0730 Physical Exam General Appearance: Well Nourished, No Acute Distress, Comfortable Eyes Eye Exam: Pupils Equal Throat Throat Exam: Oral Mucosa [place] & Moist Pulmonary Resp Exam: No Distress, Rhonchi, Decreased Bases, Diminished Breath Sounds Cardiology CV Exam: Regular Gastrointestinal/Abdomen GI Exam: Soft, Non-Tender, Distended GI Remarks ileal conduit opening. Extremeties Extremities Exam: Moderate Edema, Pitting Edema Neurologic Neuro Exam: Alert, Awake, Oriented Psychiatric Psych Exam: Appropriate Responses Assessment/Plan Assessment Summary: VIJAY/Acute Renal Failure, Hypotension, CKD Stage IV Electrolyte Assessment: Metabolic Acidosis Problem List: (1) Anemia in chronic kidney disease ICD Codes: N18.9 - Chronic kidney disease, unspecified; D63.1 - Anemia in chronic kidney disease Status: Acute (2) Hypertension ICD Codes: I10 - Essential (primary) hypertension Status: Chronic (3) Acidemia ICD Codes: E87.2 - Acidosis Status: Acute (4) Acute kidney injury ICD Codes: N17.9 - Acute kidney failure, unspecified Status: Acute (5) Paraplegia ICD Codes: G82.20 - Paraplegia Status: Chronic (6) Paraplegia ICD Codes: G82.20 - Paraplegia Status: Acute (7) Acute on chronic kidney failure ICD Codes: N17.9 - Acute kidney failure, unspecified; N18.9 - Chronic kidney disease, unspecified Status: Chronic Plan Patient has increase in BUN and Creatinine. Also has metabolic acidosis. Seen by urology, possibly have obstructive uropathy. BP is improving. Patient has moderate Hydronephrosis on rt. side, has single kidney. Renal scan did not show uptake, possible due to poor renal function. Urine out put is good. HD has been on hold. Renal scan noted, unlikely to have obstruction. Creatinine is slightly better, 3.4. Can D/C Vascath. Problem Qualifiers (1) Anemia in chronic kidney disease: Qualified Codes: N18.4 - Chronic kidney disease, stage 4 (severe); D63.1 - Anemia in chronic kidney disease Lynsey Goldman MD Dec 22, 2016 22:13
[2016-12-22 22:50] LABS: BLOOD, URINE NEG (NEG); GLUCOSE,URINE NEG (NEG); KETONE, URINE NEG (NEG); NITRITE,URINE NEG (NEG); PH, URINE 6.5 (5.0-8.5); URINE COLOR LIGHT-YELLOW (YELLW/STRAW)
[2016-12-22 22:51] LABS: COMMENT (UR) CATH-CULT NOT IND; CULTURE IF INDICATED CATH CULTURE NOT IND
[2016-12-23 00:35] VITALS: BP 111/57; PULSE 48; RESP 18; TEMP 98.1; O2SAT 97
[2016-12-23 04:40] VITALS: BP 166/74; PULSE 58; RESP 19; TEMP 96.7; O2SAT 99
[2016-12-23] MEDS: oxyCODONE/ACETAMINOPHEN 5 MG/325 MG TAB PO PRN ×4 (05:08→21:21)
[2016-12-23] MEDS: BACLOFEN 10 MG TAB PO SCH ×3 (05:08→21:19)
[2016-12-23 08:00] VITALS: BP 185/88; PULSE 61; RESP 16; TEMP 98; O2SAT 98
[2016-12-23] MEDS: DOCUSATE SODIUM 100 MG CAP PO SCH ×3 (09:00→21:19)
[2016-12-23] MEDS: NYSTATIN 100,000 UNIT/GM CREAM 15 GM TOPICAL SCH ×2 (09:00→21:00)
[2016-12-23] MEDS: hydrALAZINE HCL 100 MG TAB PO SCH ×2 (10:16→21:19)
[2016-12-23] MEDS: CALCITRIOL 0.25 MCG CAP PO SCH (10:16)
[2016-12-23] MEDS: ASCORBIC ACID 500 MG TAB PO SCH (10:16)
[2016-12-23] MEDS: MULTIVITAMIN TAB PO SCH (10:16)
[2016-12-23] MEDS: PANTOPRAZOLE SOD 40 MG DELAYED RELEASE TAB PO SCH (10:17)
[2016-12-23] MEDS: FERROUS SULFATE 325 MG (65 MG ELEMENTAL IRON) TAB PO SCH ×3 (10:17→17:52)
[2016-12-23] MEDS: CLOPIDOGREL 75 MG TAB PO SCH (10:17)
[2016-12-23] MEDS: METOPROLOL SUCCINATE 50 MG EXTENDED RELEASE TAB PO SCH (10:17)
[2016-12-23] MEDS: ASPIRIN EC 81 MG TABEC PO SCH (10:17)
[2016-12-23] MEDS: LACTOBACILLUS ACIDOPHILUS TAB PO SCH ×3 (10:18→17:52)
[2016-12-23] MEDS: amLODIPine BESYLATE 5 MG TAB PO SCH (10:18)
[2016-12-23] MEDS: CYANOCOBALAMIN 1,000 MCG TAB PO SCH (10:18)
[2016-12-23] MEDS: SODIUM CHLORIDE 0.9% FLUSH 10 ML FLUSH IV FLUSH SCH ×2 (10:19→21:19)
[2016-12-23] MEDS: MORPHINE SULFATE 15 MG CONTROLLED RELEASE TAB PO SCH ×2 (10:21→21:21)
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
--- NOTE | 2016-12-23 10:37 | HHI.NPPN ---
Subjective History of Present Illness 61-year-old male known to me from before with past medical history of chronic kidney disease and single kidney, history of peripheral vascular disease, hypertension, hyperlipidemia, partial small-bowel obstruction, history of paraplegia, history of neobladder formation with neurogenic bladder, who was admitted at [facility] for rehabilitation. I saw the patient when he was admitted in September and at that time he had creatinine as high as 6.3 and it improved to around 2.2 to 2.4 and it has been gradually going up. Additional Remarks Patient is alert, eating well, no abd. pain, eating well, no SOB. Review of Systems General Constitutional: Fatigue Respiratory Lungs: SOB Cardiovascular Cardiac: Edema Objective Data Data Vital Signs Date Time Temp Pulse Resp B/P (MAP) Pulse Ox O2 Delivery O2 Flow Rate FiO2 12/23/16 08:00 98.0 61 16 185/88 (120) 98 12/23/16 04:40 96.7 58 19 166/74 (104) 99 12/23/16 00:35 98.1 48 18 111/57 (75) 97 12/22/16 21:20 Nasal Cannula 1.00 12/22/16 20:40 98.2 54 19 119/62 (81) 98 12/22/16 20:11 96 Nasal Cannula 1.00 12/22/16 16:00 97.9 58 18 135/61 (85) 96 -: 12/21/16 1614 12/22/16 0730 Physical Exam General Appearance: Well Nourished, No Acute Distress, Comfortable Eyes Eye Exam: Pupils Equal Throat Throat Exam: Oral Mucosa [place] & Moist Pulmonary Resp Exam: No Distress, Rhonchi, Decreased Bases, Diminished Breath Sounds Cardiology CV Exam: Regular Gastrointestinal/Abdomen GI Exam: Soft, Non-Tender, Distended GI Remarks ileal conduit opening. Extremeties Extremities Exam: Moderate Edema, Pitting Edema Neurologic Neuro Exam: Alert, Awake, Oriented Psychiatric Psych Exam: Appropriate Responses Assessment/Plan Assessment Summary: VIJAY/Acute Renal Failure, Hypotension, CKD Stage IV Electrolyte Assessment: Metabolic Acidosis Problem List: (1) Anemia in chronic kidney disease ICD Codes: N18.9 - Chronic kidney disease, unspecified; D63.1 - Anemia in chronic kidney disease Status: Acute (2) Hypertension ICD Codes: I10 - Essential (primary) hypertension Status: Chronic (3) Acidemia ICD Codes: E87.2 - Acidosis Status: Acute (4) Acute kidney injury ICD Codes: N17.9 - Acute kidney failure, unspecified Status: Acute (5) Paraplegia ICD Codes: G82.20 - Paraplegia Status: Chronic (6) Paraplegia ICD Codes: G82.20 - Paraplegia Status: Acute (7) Acute on chronic kidney failure ICD Codes: N17.9 - Acute kidney failure, unspecified; N18.9 - Chronic kidney disease, unspecified Status: Chronic Plan Patient has increase in BUN and Creatinine. Also has metabolic acidosis. Seen by urology, possibly have obstructive uropathy. BP is improving. Patient has moderate Hydronephrosis on rt. side, has single kidney. Renal scan did not show uptake, possible due to poor renal function. Urine out put is good. HD has been on hold. Renal scan noted, unlikely to have obstruction. Creatinine was3.4. Can D/C Vascath. Now new BMP. Awaiting placement in SNF. Problem Qualifiers (1) Anemia in chronic kidney disease: Qualified Codes: N18.4 - Chronic kidney disease, stage 4 (severe); D63.1 - Anemia in chronic kidney disease Lynsey Goldman MD Dec 23, 2016 10:37
[2016-12-23 12:00] VITALS: BP 127/71; PULSE 64; RESP 16; TEMP 97.9; O2SAT 97
[2016-12-23 12:18] LABS: BICARBONATE 23.2 MEQ/L (21.0-32.0); POTASSIUM 5.5 MEQ/L (3.5-5.1)
[2016-12-23] MEDS: SODIUM HYPOCHLORITE 0.25% 500 ML BTL OTHER SCH (13:47)
[2016-12-23 16:58] VITALS: BP 121/59; PULSE 63; RESP 16; TEMP 98.2; O2SAT 97
[2016-12-23 20:56] VITALS: BP 140/76; PULSE 63; RESP 16; TEMP 98.1; O2SAT 99
[2016-12-23] MEDS: ATORVASTATIN 40 MG TAB PO SCH (21:19)
[2016-12-24 00:56] VITALS: BP 132/74; PULSE 63; RESP 18; TEMP 98.1; O2SAT 95
[2016-12-24] MEDS: oxyCODONE/ACETAMINOPHEN 5 MG/325 MG TAB PO PRN ×5 (01:34→21:19)
[2016-12-24 05:29] VITALS: BP 136/76; PULSE 70; RESP 18; TEMP 98; O2SAT 96
[2016-12-24] MEDS: BACLOFEN 10 MG TAB PO SCH ×3 (06:08→21:16)
[2016-12-24 08:52] VITALS: BP 142/75; PULSE 56; RESP 18; TEMP 97.6; O2SAT 97
[2016-12-24] MEDS: SODIUM CHLORIDE 0.9% FLUSH 10 ML FLUSH IVF SCH ×2 (09:00→10:07)
[2016-12-24] MEDS: SODIUM CHLORIDE 0.9% FLUSH 10 ML FLUSH IV FLUSH SCH ×2 (09:00→21:17)
[2016-12-24] MEDS: NYSTATIN 100,000 UNIT/GM CREAM 15 GM TOPICAL SCH ×2 (09:00→21:18)
[2016-12-24] MEDS: ASPIRIN EC 81 MG TABEC PO SCH (10:03)
[2016-12-24] MEDS: CALCITRIOL 0.25 MCG CAP PO SCH (10:03)
[2016-12-24] MEDS: CYANOCOBALAMIN 1,000 MCG TAB PO SCH (10:04)
[2016-12-24] MEDS: LACTOBACILLUS ACIDOPHILUS TAB PO SCH ×3 (10:04→16:52)
[2016-12-24] MEDS: METOPROLOL SUCCINATE 50 MG EXTENDED RELEASE TAB PO SCH (10:04)
[2016-12-24] MEDS: CLOPIDOGREL 75 MG TAB PO SCH (10:04)
[2016-12-24] MEDS: DOCUSATE SODIUM 100 MG CAP PO SCH ×2 (10:04→21:17)
[2016-12-24] MEDS: hydrALAZINE HCL 100 MG TAB PO SCH ×2 (10:04→21:16)
[2016-12-24] MEDS: FERROUS SULFATE 325 MG (65 MG ELEMENTAL IRON) TAB PO SCH ×3 (10:04→16:52)
[2016-12-24] MEDS: ASCORBIC ACID 500 MG TAB PO SCH (10:05)
[2016-12-24] MEDS: PANTOPRAZOLE SOD 40 MG DELAYED RELEASE TAB PO SCH (10:05)
[2016-12-24] MEDS: amLODIPine BESYLATE 5 MG TAB PO SCH (10:05)
[2016-12-24] MEDS: MORPHINE SULFATE 15 MG CONTROLLED RELEASE TAB PO SCH ×2 (10:06→21:18)
[2016-12-24] MEDS: MULTIVITAMIN TAB PO SCH (10:06)
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
[2016-12-24 12:14] VITALS: BP 127/78; PULSE 67; RESP 19; TEMP 98.3; O2SAT 98
[2016-12-24 16:29] VITALS: BP 121/69; PULSE 69; RESP 19; TEMP 98.6; O2SAT 99
--- NOTE | 2016-12-24 18:37 | HHI.NPPN ---
Subjective History of Present Illness 61-year-old male known to me from before with past medical history of chronic kidney disease and single kidney, history of peripheral vascular disease, hypertension, hyperlipidemia, partial small-bowel obstruction, history of paraplegia, history of neobladder formation with neurogenic bladder, who was admitted at [facility] for rehabilitation. I saw the patient when he was admitted in September and at that time he had creatinine as high as 6.3 and it improved to around 2.2 to 2.4 and it has been gradually going up. Additional Remarks Patient is alert, eating well, no abd. pain, no SOB. Review of Systems General Constitutional: Fatigue Respiratory Lungs: SOB Cardiovascular Cardiac: Edema Objective Data Data Vital Signs Date Time Temp Pulse Resp B/P (MAP) Pulse Ox O2 Delivery O2 Flow Rate FiO2 12/24/16 16:29 98.6 69 19 121/69 (86) 99 12/24/16 12:14 98.3 67 19 127/78 (94) 98 12/24/16 08:52 97.6 56 18 142/75 (97) 97 12/24/16 07:10 20 12/24/16 05:29 98.0 70 18 136/76 (96) 96 12/24/16 00:56 98.1 63 18 132/74 (93) 95 12/23/16 22:23 20 12/23/16 20:56 98.1 63 16 140/76 (97) 99 12/23/16 20:00 97 Nasal Cannula 1.00 -: 12/21/16 1614 12/23/16 1055 Physical Exam General Appearance: Well Nourished, No Acute Distress, Comfortable Eyes Eye Exam: Pupils Equal Throat Throat Exam: Oral Mucosa [place] & Moist Pulmonary Resp Exam: No Distress, Rhonchi, Decreased Bases, Diminished Breath Sounds Cardiology CV Exam: Regular Gastrointestinal/Abdomen GI Exam: Soft, Non-Tender, Distended GI Remarks ileal conduit opening. Extremeties Extremities Exam: Moderate Edema, Pitting Edema Neurologic Neuro Exam: Alert, Awake, Oriented Psychiatric Psych Exam: Appropriate Responses Assessment/Plan Assessment Summary: VIJAY/Acute Renal Failure, Hypotension, CKD Stage IV Electrolyte Assessment: Metabolic Acidosis Problem List: (1) Anemia in chronic kidney disease ICD Codes: N18.9 - Chronic kidney disease, unspecified; D63.1 - Anemia in chronic kidney disease Status: Acute (2) Hypertension ICD Codes: I10 - Essential (primary) hypertension Status: Chronic (3) Acidemia ICD Codes: E87.2 - Acidosis Status: Acute (4) Acute kidney injury ICD Codes: N17.9 - Acute kidney failure, unspecified Status: Acute (5) Paraplegia ICD Codes: G82.20 - Paraplegia Status: Chronic (6) Paraplegia ICD Codes: G82.20 - Paraplegia Status: Acute (7) Acute on chronic kidney failure ICD Codes: N17.9 - Acute kidney failure, unspecified; N18.9 - Chronic kidney disease, unspecified Status: Chronic Plan Patient has increase in BUN and Creatinine. Also has metabolic acidosis. Seen by urology, possibly have obstructive uropathy. BP is improving. Patient has moderate Hydronephrosis on rt. side, has single kidney. Renal scan did not show uptake, possible due to poor renal function. Urine out put is good. HD has been on hold. Renal scan noted, unlikely to have obstruction. No new BMP, K was high, check BMP in AM. Vascath was removed. Problem Qualifiers (1) Anemia in chronic kidney disease: Qualified Codes: N18.4 - Chronic kidney disease, stage 4 (severe); D63.1 - Anemia in chronic kidney disease Lynsey Goldman MD Dec 24, 2016 18:37
[2016-12-24 20:00] VITALS: BP 126/70; PULSE 60; RESP 20; TEMP 98.6; O2SAT 99
[2016-12-24] MEDS: ATORVASTATIN 40 MG TAB PO SCH (21:17)
[2016-12-25 01:11] VITALS: BP 129/70; PULSE 55; RESP 20; TEMP 98.6; O2SAT 98
[2016-12-25] MEDS: oxyCODONE/ACETAMINOPHEN 5 MG/325 MG TAB PO PRN ×5 (02:23→22:34)
[2016-12-25 06:11] VITALS: BP 135/67; PULSE 61; RESP 19; TEMP 98.5; O2SAT 96
[2016-12-25] MEDS: BACLOFEN 10 MG TAB PO SCH ×3 (06:30→22:33)
[2016-12-25 08:00] VITALS: BP 174/84; PULSE 58; RESP 18; TEMP 97.8; O2SAT 96
[2016-12-25] MEDS: SODIUM CHLORIDE 0.9% FLUSH 10 ML FLUSH IVF SCH (09:00)
[2016-12-25] MEDS: NYSTATIN 100,000 UNIT/GM CREAM 15 GM TOPICAL SCH ×2 (09:00→22:35)
[2016-12-25] MEDS: SODIUM HYPOCHLORITE 0.25% 500 ML BTL OTHER SCH (09:00)
--- NOTE | 2016-12-25 09:49 | HHI.NPPN ---
Subjective History of Present Illness 61-year-old male known to me from before with past medical history of chronic kidney disease and single kidney, history of peripheral vascular disease, hypertension, hyperlipidemia, partial small-bowel obstruction, history of paraplegia, history of neobladder formation with neurogenic bladder, who was admitted at [facility] for rehabilitation. I saw the patient when he was admitted in September and at that time he had creatinine as high as 6.3 and it improved to around 2.2 to 2.4 and it has been gradually going up. Additional Remarks Patient is alert, eating well, no abd. pain, no SOB, clinically same. Review of Systems General Constitutional: Fatigue Respiratory Lungs: SOB Cardiovascular Cardiac: Edema Objective Data Data Vital Signs Date Time Temp Pulse Resp B/P (MAP) Pulse Ox O2 Delivery O2 Flow Rate FiO2 12/25/16 06:11 98.5 61 19 135/67 (89) 96 12/25/16 01:11 98.6 55 20 129/70 (89) 98 12/24/16 21:20 Room Air 12/24/16 20:00 98.6 60 20 126/70 (88) 99 12/24/16 16:29 98.6 69 19 121/69 (86) 99 12/24/16 12:14 98.3 67 19 127/78 (94) 98 -: 12/21/16 1614 12/23/16 1055 Physical Exam General Appearance: Well Nourished, No Acute Distress, Comfortable Eyes Eye Exam: Pupils Equal Throat Throat Exam: Oral Mucosa [place] & Moist Pulmonary Resp Exam: No Distress, Rhonchi, Decreased Bases, Diminished Breath Sounds Cardiology CV Exam: Regular Gastrointestinal/Abdomen GI Exam: Soft, Non-Tender, Distended GI Remarks ileal conduit opening. Extremeties Extremities Exam: Moderate Edema, Pitting Edema Neurologic Neuro Exam: Alert, Awake, Oriented Psychiatric Psych Exam: Appropriate Responses Assessment/Plan Assessment Summary: VIJAY/Acute Renal Failure, Hypotension, CKD Stage IV Electrolyte Assessment: Metabolic Acidosis Problem List: (1) Anemia in chronic kidney disease ICD Codes: N18.9 - Chronic kidney disease, unspecified; D63.1 - Anemia in chronic kidney disease Status: Acute (2) Hypertension ICD Codes: I10 - Essential (primary) hypertension Status: Chronic (3) Acidemia ICD Codes: E87.2 - Acidosis Status: Acute (4) Acute kidney injury ICD Codes: N17.9 - Acute kidney failure, unspecified Status: Acute (5) Paraplegia ICD Codes: G82.20 - Paraplegia Status: Chronic (6) Paraplegia ICD Codes: G82.20 - Paraplegia Status: Acute (7) Acute on chronic kidney failure ICD Codes: N17.9 - Acute kidney failure, unspecified; N18.9 - Chronic kidney disease, unspecified Status: Chronic Plan Patient has increase in BUN and Creatinine. Also has metabolic acidosis. Seen by urology, possibly have obstructive uropathy. BP is improving. Patient has moderate Hydronephrosis on rt. side, has single kidney. Renal scan did not show uptake, possible due to poor renal function. Urine out put is good. HD has been on hold. Renal scan noted, unlikely to have obstruction. No new BMP, ordered and is PND. Vascath was removed. If D/C, will need out patient follow up. Problem Qualifiers (1) Anemia in chronic kidney disease: Qualified Codes: N18.4 - Chronic kidney disease, stage 4 (severe); D63.1 - Anemia in chronic kidney disease Lynsey Goldman MD Dec 25, 2016 09:49
[2016-12-25 10:37] LABS: POTASSIUM 5.5 MEQ/L (3.5-5.1)
[2016-12-25] MEDS: PANTOPRAZOLE SOD 40 MG DELAYED RELEASE TAB PO SCH (10:59)
[2016-12-25] MEDS: CLOPIDOGREL 75 MG TAB PO SCH (10:59)
[2016-12-25] MEDS: hydrALAZINE HCL 100 MG TAB PO SCH ×2 (10:59→22:33)
[2016-12-25] MEDS: MULTIVITAMIN TAB PO SCH (10:59)
[2016-12-25] MEDS: METOPROLOL SUCCINATE 50 MG EXTENDED RELEASE TAB PO SCH (10:59)
[2016-12-25] MEDS: LACTOBACILLUS ACIDOPHILUS TAB PO SCH ×3 (11:00→18:20)
[2016-12-25] MEDS: MORPHINE SULFATE 15 MG CONTROLLED RELEASE TAB PO SCH ×2 (11:00→22:34)
[2016-12-25] MEDS: CALCITRIOL 0.25 MCG CAP PO SCH (11:00)
[2016-12-25] MEDS: SODIUM CHLORIDE 0.9% FLUSH 10 ML FLUSH IV FLUSH SCH ×2 (11:00→22:35)
[2016-12-25] MEDS: FERROUS SULFATE 325 MG (65 MG ELEMENTAL IRON) TAB PO SCH ×4 (11:00→18:20)
[2016-12-25] MEDS: DOCUSATE SODIUM 100 MG CAP PO SCH ×2 (11:00→22:33)
[2016-12-25] MEDS: ASCORBIC ACID 500 MG TAB PO SCH (11:01)
[2016-12-25] MEDS: amLODIPine BESYLATE 5 MG TAB PO SCH (11:01)
[2016-12-25] MEDS: ASPIRIN EC 81 MG TABEC PO SCH (11:01)
[2016-12-25] MEDS: CYANOCOBALAMIN 1,000 MCG TAB PO SCH (11:01)
[2016-12-25 12:00] VITALS: BP 142/68; PULSE 66; RESP 16; TEMP 98.2; O2SAT 96
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
[2016-12-25 16:00] VITALS: BP 130/65; PULSE 65; RESP 18; TEMP 98.1; O2SAT 96
[2016-12-25 20:00] VITALS: BP 132/68; PULSE 59; RESP 22; TEMP 98.5; O2SAT 98
[2016-12-25] MEDS: MELATONIN 5 MG TAB PO PRN (22:33)
[2016-12-25] MEDS: ATORVASTATIN 40 MG TAB PO SCH (22:33)
[2016-12-26] VITALS: BP 122/58; PULSE 56; RESP 22; TEMP 99.1; O2SAT 98
[2016-12-26 04:00] VITALS: BP 133/65; PULSE 52; RESP 20; TEMP 98.1; O2SAT 99
[2016-12-26] MEDS: BACLOFEN 10 MG TAB PO SCH ×3 (04:37→21:05)
[2016-12-26] MEDS: oxyCODONE/ACETAMINOPHEN 5 MG/325 MG TAB PO PRN ×5 (04:38→22:27)
[2016-12-26 08:00] VITALS: BP 135/65; PULSE 82; RESP 18; TEMP 97.5; O2SAT 99
[2016-12-26] MEDS: SODIUM CHLORIDE 0.9% FLUSH 10 ML FLUSH IVF SCH (09:00)
[2016-12-26] MEDS: NYSTATIN 100,000 UNIT/GM CREAM 15 GM TOPICAL SCH ×2 (09:00→21:00)
[2016-12-26] MEDS: SODIUM CHLORIDE 0.9% FLUSH 10 ML FLUSH IV FLUSH SCH ×2 (09:16→21:05)
[2016-12-26] MEDS: CLOPIDOGREL 75 MG TAB PO SCH (09:17)
[2016-12-26] MEDS: LACTOBACILLUS ACIDOPHILUS TAB PO SCH ×3 (09:17→18:12)
[2016-12-26] MEDS: ASPIRIN EC 81 MG TABEC PO SCH (09:17)
[2016-12-26] MEDS: CALCITRIOL 0.25 MCG CAP PO SCH (09:17)
[2016-12-26] MEDS: hydrALAZINE HCL 100 MG TAB PO SCH ×2 (09:17→21:05)
[2016-12-26] MEDS: METOPROLOL SUCCINATE 50 MG EXTENDED RELEASE TAB PO SCH (09:18)
[2016-12-26] MEDS: MORPHINE SULFATE 15 MG CONTROLLED RELEASE TAB PO SCH ×2 (09:18→21:06)
[2016-12-26] MEDS: PANTOPRAZOLE SOD 40 MG DELAYED RELEASE TAB PO SCH (09:18)
[2016-12-26] MEDS: CYANOCOBALAMIN 1,000 MCG TAB PO SCH (09:18)
[2016-12-26] MEDS: MULTIVITAMIN TAB PO SCH (09:18)
[2016-12-26] MEDS: amLODIPine BESYLATE 5 MG TAB PO SCH (09:18)
[2016-12-26] MEDS: DOCUSATE SODIUM 100 MG CAP PO SCH ×2 (09:18→21:05)
[2016-12-26] MEDS: ASCORBIC ACID 500 MG TAB PO SCH (09:18)
[2016-12-26] MEDS: FERROUS SULFATE 325 MG (65 MG ELEMENTAL IRON) TAB PO SCH ×3 (09:18→18:12)
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
--- NOTE | 2016-12-26 11:40 | HHI.NPPN ---
Subjective History of Present Illness 61-year-old male known to me from before with past medical history of chronic kidney disease and single kidney, history of peripheral vascular disease, hypertension, hyperlipidemia, partial small-bowel obstruction, history of paraplegia, history of neobladder formation with neurogenic bladder, who was admitted at [facility] for rehabilitation. I saw the patient when he was admitted in September and at that time he had creatinine as high as 6.3 and it improved to around 2.2 to 2.4 and it has been gradually going up. Additional Remarks No acute complaints. Review of Systems General Constitutional: Fatigue Respiratory Lungs: SOB Cardiovascular Cardiac: Edema Objective Data Data Vital Signs Date Time Temp Pulse Resp B/P (MAP) Pulse Ox O2 Delivery O2 Flow Rate FiO2 12/26/16 09:31 Room Air 12/26/16 08:00 97.5 82 18 135/65 (88) 99 12/26/16 04:00 98.1 52 20 133/65 (87) 99 12/26/16 00:00 99.1 56 22 122/58 (79) 98 12/25/16 22:35 Nasal Cannula 1.00 12/25/16 20:00 98.5 59 22 132/68 (89) 98 12/25/16 16:00 98.1 65 18 130/65 (86) 96 12/25/16 14:46 Nasal Cannula 2.00 12/25/16 12:00 98.2 66 16 142/68 (92) 96 -: 12/25/16 0742 Physical Exam General Appearance: Well Nourished, No Acute Distress, Comfortable Eyes Eye Exam: Pupils Equal Throat Throat Exam: Oral Mucosa Ila & Moist Pulmonary Resp Exam: No Distress, Rhonchi, Decreased Bases, Diminished Breath Sounds Cardiology CV Exam: Regular Gastrointestinal/Abdomen GI Exam: Soft, Non-Tender, Distended Extremeties Extremities Exam: Moderate Edema, Pitting Edema Neurologic Neuro Exam: Alert, Awake, Oriented Psychiatric Psych Exam: Appropriate Responses Assessment/Plan Assessment Summary: VIJAY/Acute Renal Failure, Hypotension, CKD Stage IV Electrolyte Assessment: Metabolic Acidosis Problem List: (1) Anemia in chronic kidney disease ICD Codes: N18.9 - Chronic kidney disease, unspecified; D63.1 - Anemia in chronic kidney disease Status: Acute (2) Hypertension ICD Codes: I10 - Essential (primary) hypertension Status: Chronic (3) Acidemia ICD Codes: E87.2 - Acidosis Status: Acute (4) Acute kidney injury ICD Codes: N17.9 - Acute kidney failure, unspecified Status: Acute (5) Paraplegia ICD Codes: G82.20 - Paraplegia Status: Chronic (6) Paraplegia ICD Codes: G82.20 - Paraplegia Status: Acute (7) Acute on chronic kidney failure ICD Codes: N17.9 - Acute kidney failure, unspecified; N18.9 - Chronic kidney disease, unspecified Status: Chronic Plan Patient has increase in BUN and Creatinine. Also has metabolic acidosis. Seen by urology, possibly have obstructive uropathy. BP is improving. Patient has moderate Hydronephrosis on rt. side, has single kidney. Renal scan did not show uptake, possible due to poor renal function. Urine out put is good. HD has been on hold. Renal scan noted, unlikely to have obstruction. Vascath was removed. UOP improving - 3L/ 24 hours. Will check AM labs, renal function appears to be stabilizing. Follow hemoglobin - has been on Epogen in the past. Problem Qualifiers (1) Anemia in chronic kidney disease: Qualified Codes: N18.4 - Chronic kidney disease, stage 4 (severe); D63.1 - Anemia in chronic kidney disease Chet Hansen MD Dec 26, 2016 11:40
[2016-12-26 12:00] VITALS: BP 131/69; PULSE 86; RESP 18; TEMP 98.1; O2SAT 99
--- NOTE | 2016-12-26 13:36 | RADRPT ---
EXAM DATE/TIME: 12/26/2016 12:49 [place] COMPARISON: No previous studies available for comparison. INDICATIONS : Neck pain for several days. No known trauma MEDICAL HISTORY : None. SURGICAL HISTORY : Fusion, cervical. ENCOUNTER: Initial ACUITY: 3 days PAIN SCORE: 5/10 LOCATION: Cervical spine FINDINGS: Five view examination was performed. Postsurgical features of prior intradiscal and anterior plate a nd screw fixation at C5-7. Hardware appears intact. Sagittal alignment appears maintained. No evidenc e of fracture or subluxation. Vertebral body height is normal. Dens is intact. No significant preve rtebral soft tissue swelling. Normal C1-2 relationship. Degenerative spondylosis of the lower cervica l spine with apparent mild to moderate bony neural foraminal stenosis at C5-6 and C6-7. Incidental no te of disrupted superior median sternotomy wires. Request by apices are clear. CONCLUSION: 1. Post surgical features of prior intradiscal and anterior plate and screw fixation at C5-7. Hardwar e is intact and there is normal sagittal alignment. 2. Degenerative spondylosis of the lower cervical spine with likely mild to moderate bony left neural foraminal stenosis at C5-7. Jeremiah Caba MD on December 26, 2016 at 13:30 Board Certified Radiologist. This report was verified electronically.
[2016-12-26 16:00] VITALS: BP 133/61; PULSE 73; RESP 18; TEMP 98; O2SAT 99
[2016-12-26 20:00] VITALS: BP 138/75; PULSE 60; RESP 20; TEMP 98; O2SAT 97
[2016-12-26] MEDS: ATORVASTATIN 40 MG TAB PO SCH (21:05)
[2016-12-26] MEDS: MELATONIN 5 MG TAB PO PRN (22:27)
[2016-12-27] VITALS: BP 118/63; PULSE 60; RESP 20; TEMP 98.2; O2SAT 96
[2016-12-27] MEDS: oxyCODONE/ACETAMINOPHEN 5 MG/325 MG TAB PO PRN ×5 (03:39→22:43)
[2016-12-27] MEDS: BACLOFEN 10 MG TAB PO SCH ×3 (05:19→21:45)
[2016-12-27 05:58] VITALS: BP 131/67; PULSE 56; RESP 20; TEMP 98.1; O2SAT 98
[2016-12-27 08:00] VITALS: BP 148/67; PULSE 60; RESP 18; TEMP 97.5; O2SAT 98
[2016-12-27] MEDS: MORPHINE SULFATE 15 MG CONTROLLED RELEASE TAB PO SCH ×2 (08:32→21:44)
[2016-12-27] MEDS: ASPIRIN EC 81 MG TABEC PO SCH (08:32)
[2016-12-27] MEDS: LACTOBACILLUS ACIDOPHILUS TAB PO SCH ×3 (08:32→18:28)
[2016-12-27] MEDS: SODIUM CHLORIDE 0.9% FLUSH 10 ML FLUSH IV FLUSH SCH ×2 (08:32→21:45)
[2016-12-27] MEDS: CALCITRIOL 0.25 MCG CAP PO SCH (08:32)
[2016-12-27] MEDS: ASCORBIC ACID 500 MG TAB PO SCH (08:33)
[2016-12-27] MEDS: METOPROLOL SUCCINATE 50 MG EXTENDED RELEASE TAB PO SCH (08:33)
[2016-12-27] MEDS: hydrALAZINE HCL 100 MG TAB PO SCH ×2 (08:33→21:45)
[2016-12-27] MEDS: MULTIVITAMIN TAB PO SCH (08:33)
[2016-12-27] MEDS: CLOPIDOGREL 75 MG TAB PO SCH (08:33)
[2016-12-27] MEDS: amLODIPine BESYLATE 5 MG TAB PO SCH (08:33)
[2016-12-27] MEDS: NYSTATIN 100,000 UNIT/GM CREAM 15 GM TOPICAL SCH ×2 (08:33→21:00)
[2016-12-27] MEDS: PANTOPRAZOLE SOD 40 MG DELAYED RELEASE TAB PO SCH (08:33)
[2016-12-27] MEDS: CYANOCOBALAMIN 1,000 MCG TAB PO SCH (08:33)
[2016-12-27] MEDS: DOCUSATE SODIUM 100 MG CAP PO SCH ×2 (08:33→21:44)
[2016-12-27] MEDS: FERROUS SULFATE 325 MG (65 MG ELEMENTAL IRON) TAB PO SCH ×3 (08:33→18:28)
[2016-12-27] MEDS: SODIUM CHLORIDE 0.9% FLUSH 10 ML FLUSH IVF SCH (08:42)
[2016-12-27] MEDS: SODIUM HYPOCHLORITE 0.25% 500 ML BTL OTHER SCH (08:42)
[2016-12-27 09:58] LABS: AUTOMATED NEUTROPHIL # 4.7 TH/MM3 (1.8-7.7); BASOPHIL # 0.1 TH/MM3 (0-0.2); BASOPHIL % 0.7 % (0.0-2.0); EOSINOPHIL # 0.4 TH/MM3 (0-0.4); EOSINOPHIL % 5.4 % (0.0-4.0); HEMATOCRIT 29.1 % (39.0-51.0); HEMO FLAGS DIFF FINAL; LYMPH % 22.4 % (9.0-44.0); LYMPHOCYTE # 1.6 TH/MM3 (1.0-4.8); MEAN CORPUSCULAR HEMOGLOBIN 27.7 PG (27.0-34.0); MEAN CORPUSCULAR HGB CONC 31.8 % (32.0-36.0); MONO % 7.1 % (0.0-8.0); NEUT % 64.4 % (16.0-70.0); PLATELET COUNT 184 TH/MM3 (150-450); RED BLOOD COUNT 3.34 MIL/MM3 (4.50-5.90); RED CELL DISTRIBUTION WIDTH 17.2 % (11.6-17.2); WHITE BLOOD COUNT 7.3 TH/MM3 (4.0-11.0)
[2016-12-27 10:19] LABS: BICARBONATE 20.7 MEQ/L (21.0-32.0); POTASSIUM 5.7 MEQ/L (3.5-5.1)
--- NOTE | 2016-12-27 10:33 | HHI.PR ---
Subjective Remarks C/R Surg pt examined, chart reviewed Prev colostomy at [facility] for perineal wounds/incontinence - prob loop stoma Pt to get Op note c/o some rectal stool X2 Mult med problems reviewed, mult prev surgurie Objective - Vital Signs Date Time Temp Pulse Resp B/P (MAP) Pulse Ox O2 Delivery O2 Flow Rate FiO2 12/27/16 08:46 Room Air 12/27/16 08:00 97.5 60 18 148/67 (94) 98 12/25/16 22:35 1.00 Result Diagram: 12/27/1634 12/27/16933 Objective Remarks PE alert abd - obese, flat, mult scars, stoma LLQ functioning - lg stool output A/P Assessment and Plan Imp: Colostomy - functioning , needs good stoma care with mult med problems, small am't rectal stool/disch prob not a major problem Risk of stoma revision could be significant surger will cont observation for now, be happy to see in office, and consider options Jordan Acevedo MD Dec 27, 2016 10:33
[2016-12-27 12:00] VITALS: BP 123/73; PULSE 66; RESP 18; TEMP 97.2; O2SAT 98
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
--- NOTE | 2016-12-27 15:16 | HHI.NPPN ---
Subjective History of Present Illness 61-year-old male known to me from before with past medical history of chronic kidney disease and single kidney, history of peripheral vascular disease, hypertension, hyperlipidemia, partial small-bowel obstruction, history of paraplegia, history of neobladder formation with neurogenic bladder, who was admitted at [facility] for rehabilitation. I saw the patient when he was admitted in September and at that time he had creatinine as high as 6.3 and it improved to around 2.2 to 2.4 and it has been gradually going up. Additional Remarks No acute complaints. Review of Systems General Constitutional: Fatigue Respiratory Lungs: SOB Cardiovascular Cardiac: Edema Objective Data Data Vital Signs Date Time Temp Pulse Resp B/P (MAP) Pulse Ox O2 Delivery O2 Flow Rate FiO2 12/27/16 12:00 97.2 66 18 123/73 (90) 98 12/27/16 08:46 Room Air 12/27/16 08:00 97.5 60 18 148/67 (94) 98 12/27/16 05:58 98.1 56 20 131/67 (88) 98 12/27/16 00:00 98.2 60 20 118/63 (81) 96 12/26/16 21:05 Room Air 12/26/16 20:00 98.0 60 20 138/75 (96) 97 12/26/16 16:00 98.0 73 18 133/61 (85) 99 -: 12/27/16 0934 12/27/16 0934 Physical Exam General Appearance: Well Nourished, No Acute Distress, Comfortable Eyes Eye Exam: Pupils Equal Throat Throat Exam: Oral Mucosa [place] & Moist Pulmonary Resp Exam: No Distress, Rhonchi, Decreased Bases, Diminished Breath Sounds Cardiology CV Exam: Regular Gastrointestinal/Abdomen GI Exam: Soft, Non-Tender, Distended Extremeties Extremities Exam: Moderate Edema, Pitting Edema Neurologic Neuro Exam: Alert, Awake, Oriented Psychiatric Psych Exam: Appropriate Responses Assessment/Plan Assessment Summary: VIJAY/Acute Renal Failure, Hypotension, CKD Stage IV Electrolyte Assessment: Metabolic Acidosis Problem List: (1) Anemia in chronic kidney disease ICD Codes: N18.9 - Chronic kidney disease, unspecified; D63.1 - Anemia in chronic kidney disease Status: Acute (2) Hypertension ICD Codes: I10 - Essential (primary) hypertension Status: Chronic (3) Acidemia ICD Codes: E87.2 - Acidosis Status: Acute (4) Acute kidney injury ICD Codes: N17.9 - Acute kidney failure, unspecified Status: Acute (5) Paraplegia ICD Codes: G82.20 - Paraplegia Status: Chronic (6) Paraplegia ICD Codes: G82.20 - Paraplegia Status: Acute (7) Acute on chronic kidney failure ICD Codes: N17.9 - Acute kidney failure, unspecified; N18.9 - Chronic kidney disease, unspecified Status: Chronic Plan Patient has increase in BUN and Creatinine. Also has metabolic acidosis. Seen by urology, possibly have obstructive uropathy. BP is improving. Patient has moderate Hydronephrosis on rt. side, has single kidney. Renal scan did not show uptake, possible due to poor renal function. HD has been on hold, Vascath was removed. Renal scan noted, unlikely to have obstruction. Creatinine 3.6 ->4 Potassium 5.5 -> 5.7 HCO3 24- > 20 Will give trial of IVFs with HCO3, change to low potassium renal diet. Montor K+ closely, medical management for now - will give kayexelate. UOP improving - 3L/ 24 hours. Follow AM labs. Slight decrease in renal function. No need for HD at this time, continue to monitor. Follow hemoglobin - has been on Epogen in the past. Stable today. Problem Qualifiers (1) Anemia in chronic kidney disease: Qualified Codes: N18.4 - Chronic kidney disease, stage 4 (severe); D63.1 - Anemia in chronic kidney disease Chet Hansen MD Dec 27, 2016 15:16
[2016-12-27] MEDS ORDERED: SODIUM POLYSTYRENE SULFONATE SUSP 15 GM/60 ML CUP PO ONE (15:30)
[2016-12-27] MEDS ORDERED: SODIUM BICARBONATE 8.4% INJ 75 MEQ in SODIUM CHLOR 0.45% 1000 ML INJ 1,000 ML IV SCH (15:45)
[2016-12-27 16:00] VITALS: BP 142/63; PULSE 56; RESP 18; TEMP 98; O2SAT 99
[2016-12-27 20:40] VITALS: BP 129/63; PULSE 57; RESP 18; TEMP 98.7; O2SAT 98
[2016-12-27] MEDS: ATORVASTATIN 40 MG TAB PO SCH (21:44)
[2016-12-27] MEDS: MELATONIN 5 MG TAB PO PRN (22:43)
[2016-12-28 00:40] VITALS: BP 132/72; PULSE 59; RESP 18; TEMP 97.8; O2SAT 98
[2016-12-28 04:40] VITALS: BP 117/67; PULSE 61; RESP 18; TEMP 98; O2SAT 97
[2016-12-28] MEDS: oxyCODONE/ACETAMINOPHEN 5 MG/325 MG TAB PO PRN ×4 (04:59→21:18)
[2016-12-28] MEDS: BACLOFEN 10 MG TAB PO SCH ×3 (05:00→21:11)
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
[2016-12-28 08:00] VITALS: BP 126/75; PULSE 64; RESP 18; TEMP 98.7; O2SAT 98
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
[2016-12-28] MEDS: NYSTATIN 100,000 UNIT/GM CREAM 15 GM TOPICAL SCH ×2 (09:00→21:00)
[2016-12-28] MEDS: SODIUM CHLORIDE 0.9% FLUSH 10 ML FLUSH IVF SCH (09:00)
[2016-12-28] MEDS: FERROUS SULFATE 325 MG (65 MG ELEMENTAL IRON) TAB PO SCH ×2 (09:00→15:52)
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
[2016-12-28] MEDS: ASPIRIN EC 81 MG TABEC PO SCH (09:57)
[2016-12-28] MEDS: MULTIVITAMIN TAB PO SCH (09:57)
[2016-12-28] MEDS: PANTOPRAZOLE SOD 40 MG DELAYED RELEASE TAB PO SCH (09:57)
[2016-12-28] MEDS: CALCITRIOL 0.25 MCG CAP PO SCH (09:57)
[2016-12-28] MEDS: hydrALAZINE HCL 100 MG TAB PO SCH ×2 (09:57→21:11)
[2016-12-28] MEDS: MORPHINE SULFATE 15 MG CONTROLLED RELEASE TAB PO SCH ×2 (09:58→21:11)
[2016-12-28] MEDS: ASCORBIC ACID 500 MG TAB PO SCH (09:58)
[2016-12-28] MEDS: METOPROLOL SUCCINATE 50 MG EXTENDED RELEASE TAB PO SCH (09:58)
[2016-12-28] MEDS: CLOPIDOGREL 75 MG TAB PO SCH (09:58)
[2016-12-28] MEDS: amLODIPine BESYLATE 5 MG TAB PO SCH (09:58)
[2016-12-28] MEDS: LACTOBACILLUS ACIDOPHILUS TAB PO SCH ×2 (09:58→15:53)
[2016-12-28] MEDS: CYANOCOBALAMIN 1,000 MCG TAB PO SCH (09:58)
[2016-12-28] MEDS: DOCUSATE SODIUM 100 MG CAP PO SCH ×2 (09:58→21:11)
[2016-12-28] MEDS: SODIUM CHLORIDE 0.9% FLUSH 10 ML FLUSH IV FLUSH SCH ×2 (10:00→21:12)
[2016-12-28 10:09] LABS: AUTOMATED NEUTROPHIL # 4.5 TH/MM3 (1.8-7.7); BASOPHIL % 0.5 % (0.0-2.0); EOSINOPHIL # 0.3 TH/MM3 (0-0.4); EOSINOPHIL % 4.6 % (0.0-4.0); HEMATOCRIT 26.6 % (39.0-51.0); HEMO FLAGS DIFF FINAL; LYMPH % 21.9 % (9.0-44.0); LYMPHOCYTE # 1.5 TH/MM3 (1.0-4.8); MEAN CELL VOLUME 85.8 FL (80.0-100.0); MEAN CORPUSCULAR HEMOGLOBIN 27.7 PG (27.0-34.0); MEAN CORPUSCULAR HGB CONC 32.2 % (32.0-36.0); MONO % 7.7 % (0.0-8.0); NEUT % 65.3 % (16.0-70.0); PLATELET COUNT 174 TH/MM3 (150-450); RED CELL DISTRIBUTION WIDTH 16.7 % (11.6-17.2); WHITE BLOOD COUNT 6.9 TH/MM3 (4.0-11.0)
[2016-12-28 10:26] LABS: ANION GAP 6 MEQ/L (5-15); AST (GOT) 7 U/L (15-37); BICARBONATE 24.8 MEQ/L (21.0-32.0); BLOOD UREA NITROGEN 49 MG/DL (7-18); CHLORIDE 110 MEQ/L (98-107); GLOMERULAR FILTRATION RATE 18 ML/MIN (>89); POTASSIUM 5.2 MEQ/L (3.5-5.1); SODIUM (NA) 141 MEQ/L (136-145)
[2016-12-28 10:34] LABS: ALKALINE PHOSPHATASE 115 U/L (45-117); ALT (GPT) 13 U/L (12-78); TOTAL BILIRUBIN ADULT 0.2 MG/DL (0.2-1.0)
[2016-12-28 12:00] VITALS: BP 133/76; PULSE 65; RESP 16; TEMP 98.3; O2SAT 98
[2016-12-28 16:00] VITALS: BP 145/80; PULSE 66; RESP 16; TEMP 98.2; O2SAT 99
--- NOTE | 2016-12-28 16:26 | HHI.NPPN ---
Subjective History of Present Illness 61-year-old male known to me from before with past medical history of chronic kidney disease and single kidney, history of peripheral vascular disease, hypertension, hyperlipidemia, partial small-bowel obstruction, history of paraplegia, history of neobladder formation with neurogenic bladder, who was admitted at [facility] for rehabilitation. I saw the patient when he was admitted in September and at that time he had creatinine as high as 6.3 and it improved to around 2.2 to 2.4 and it has been gradually going up. Additional Remarks Patient is alert, no SOB, feeling better. Review of Systems General Constitutional: Fatigue Respiratory Lungs: SOB Cardiovascular Cardiac: Edema Objective Data Data 12/28/16 12/29/16 19:00 07:00 Intake Total 1000 ml Output Total 1225 ml Balance -225 ml IV Total 1000 ml Output Urine Total 1225 ml Vital Signs Date Time Temp Pulse Resp B/P (MAP) Pulse Ox O2 Delivery O2 Flow Rate FiO2 12/28/16 13:36 Room Air 12/28/16 08:00 98.7 64 18 126/75 (92) 98 12/28/16 04:40 98.0 61 18 117/67 (84) 97 12/28/16 00:40 97.8 59 18 132/72 (92) 98 12/27/16 21:59 Room Air 12/27/16 20:40 98.7 57 18 129/63 (85) 98 -: 12/28/16 0950 12/28/16 0950 Physical Exam General Appearance: Well Nourished, No Acute Distress, Comfortable Eyes Eye Exam: Pupils Equal Throat Throat Exam: Oral Mucosa Standing [place] & Moist Pulmonary Resp Exam: No Distress, Rhonchi, Decreased Bases, Diminished Breath Sounds Cardiology CV Exam: Regular Gastrointestinal/Abdomen GI Exam: Soft, Non-Tender, Distended GI Remarks ileal conduit opening. Extremeties Extremities Exam: Moderate Edema, Pitting Edema Neurologic Neuro Exam: Alert, Awake, Oriented Psychiatric Psych Exam: Appropriate Responses Assessment/Plan Assessment Summary: VIJAY/Acute Renal Failure, Hypotension, CKD Stage IV Electrolyte Assessment: Metabolic Acidosis Problem List: (1) Anemia in chronic kidney disease ICD Codes: N18.9 - Chronic kidney disease, unspecified; D63.1 - Anemia in chronic kidney disease Status: Acute (2) Hypertension ICD Codes: I10 - Essential (primary) hypertension Status: Chronic (3) Acidemia ICD Codes: E87.2 - Acidosis Status: Acute (4) Acute kidney injury ICD Codes: N17.9 - Acute kidney failure, unspecified Status: Acute (5) Paraplegia ICD Codes: G82.20 - Paraplegia Status: Chronic (6) Paraplegia ICD Codes: G82.20 - Paraplegia Status: Acute (7) Acute on chronic kidney failure ICD Codes: N17.9 - Acute kidney failure, unspecified; N18.9 - Chronic kidney disease, unspecified Status: Chronic Plan Patient has increase in BUN and Creatinine. Also has metabolic acidosis. Seen by urology, possibly have obstructive uropathy. BP is improving. Patient has moderate Hydronephrosis on rt. side, has single kidney. Renal scan did not show uptake, possible due to poor renal function. HD has been on hold, Vascath was removed. Renal scan noted, unlikely to have obstruction. Creatinine 3.6 ->4 Potassium 5.5 -> 5.7 HCO3 24- > 20 changed to low potassium renal diet. K is now better 5.2. Creatinine also improve to 3.5. I discuss with the patient about Dialysis in future. Awaiting Placement. Problem Qualifiers (1) Anemia in chronic kidney disease: Qualified Codes: N18.4 - Chronic kidney disease, stage 4 (severe); D63.1 - Anemia in chronic kidney disease Lynsey Goldman MD Dec 28, 2016 16:26
[2016-12-28 20:50] VITALS: BP 138/65; PULSE 58; RESP 18; TEMP 98.3; O2SAT 98
[2016-12-28] MEDS: ATORVASTATIN 40 MG TAB PO SCH (21:11)
[2016-12-29 00:35] VITALS: BP 129/70; PULSE 61; RESP 17; TEMP 97.1; O2SAT 97
[2016-12-29] MEDS: MELATONIN 5 MG TAB PO PRN (02:43)
[2016-12-29] MEDS: oxyCODONE/ACETAMINOPHEN 5 MG/325 MG TAB PO PRN ×3 (02:43→13:17)
[2016-12-29 04:50] VITALS: BP 128/64; PULSE 56; RESP 18; TEMP 98.2; O2SAT 98
[2016-12-29] MEDS: BACLOFEN 10 MG TAB PO SCH ×2 (05:17→12:51)
[2016-12-29 08:45] VITALS: BP 136/71; PULSE 65; RESP 18; TEMP 97.9; O2SAT 96
[2016-12-29] MEDS: SODIUM HYPOCHLORITE 0.25% 500 ML BTL OTHER SCH (09:00)
[2016-12-29] MEDS: CALCITRIOL 0.25 MCG CAP PO SCH (09:32)
[2016-12-29] MEDS: SODIUM CHLORIDE 0.9% FLUSH 10 ML FLUSH IVF SCH (09:32)
[2016-12-29] MEDS: SODIUM CHLORIDE 0.9% FLUSH 10 ML FLUSH IV FLUSH SCH (09:32)
[2016-12-29] MEDS: MORPHINE SULFATE 15 MG CONTROLLED RELEASE TAB PO SCH (09:34)
[2016-12-29] MEDS: hydrALAZINE HCL 100 MG TAB PO SCH (09:34)
[2016-12-29] MEDS: PANTOPRAZOLE SOD 40 MG DELAYED RELEASE TAB PO SCH (09:35)
[2016-12-29] MEDS: ASPIRIN EC 81 MG TABEC PO SCH (09:35)
[2016-12-29] MEDS: CYANOCOBALAMIN 1,000 MCG TAB PO SCH (09:35)
[2016-12-29] MEDS: LACTOBACILLUS ACIDOPHILUS TAB PO SCH ×2 (09:35→12:50)
[2016-12-29] MEDS: CLOPIDOGREL 75 MG TAB PO SCH (09:35)
[2016-12-29] MEDS: DOCUSATE SODIUM 100 MG CAP PO SCH (09:35)
[2016-12-29] MEDS: MULTIVITAMIN TAB PO SCH (09:35)
[2016-12-29] MEDS: ASCORBIC ACID 500 MG TAB PO SCH (09:35)
[2016-12-29] MEDS: amLODIPine BESYLATE 5 MG TAB PO SCH (09:35)
[2016-12-29] MEDS: FERROUS SULFATE 325 MG (65 MG ELEMENTAL IRON) TAB PO SCH ×2 (09:35→12:50)
[2016-12-29] MEDS: METOPROLOL SUCCINATE 50 MG EXTENDED RELEASE TAB PO SCH (09:35)
[2016-12-29] MEDS ORDERED: BENA25CA4 PO (11:08)
[2016-12-29] MEDS ORDERED: BACL10TA PO (11:08)
[2016-12-29] MEDS ORDERED: OXYC1TAB63 PO (11:08)
[2016-12-29] MEDS ORDERED: HYDR-3801 PO (11:08)
[2016-12-29] MEDS ORDERED: MORP1TAB24 PO (11:08)
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
[2016-12-29 12:00] VITALS: BP 141/70; PULSE 66; RESP 16; TEMP 97.5; O2SAT 96
--- NOTE | 2016-12-29 12:37 | HHI.NPPN ---
Subjective History of Present Illness 61-year-old male known to me from before with past medical history of chronic kidney disease and single kidney, history of peripheral vascular disease, hypertension, hyperlipidemia, partial small-bowel obstruction, history of paraplegia, history of neobladder formation with neurogenic bladder, who was admitted at [facility] for rehabilitation. I saw the patient when he was admitted in September and at that time he had creatinine as high as 6.3 and it improved to around 2.2 to 2.4 and it has been gradually going up. Additional Remarks Patient is alert, no SOB, feeling better, no complain. Review of Systems General Constitutional: Fatigue Respiratory Lungs: SOB Cardiovascular Cardiac: Edema Objective Data Data Vital Signs Date Time Temp Pulse Resp B/P (MAP) Pulse Ox O2 Delivery O2 Flow Rate FiO2 12/29/16 09:35 96 Room Air 2.00 12/29/16 08:45 97.9 65 18 136/71 (92) 96 12/29/16 04:50 98.2 56 18 128/64 (85) 98 12/29/16 03:43 16 12/29/16 00:35 97.1 61 17 129/70 (89) 97 12/28/16 22:11 16 12/28/16 21:31 96 2.00 12/28/16 20:50 98.3 58 18 138/65 (89) 98 12/28/16 16:00 98.2 66 16 145/80 (101) 99 12/28/16 13:36 Room Air -: 12/28/16 0950 12/28/16 0950 Physical Exam General Appearance: Well Nourished, No Acute Distress, Comfortable Eyes Eye Exam: Pupils Equal Throat Throat Exam: Oral Mucosa [place] & Moist Pulmonary Resp Exam: No Distress, Rhonchi, Decreased Bases, Diminished Breath Sounds Cardiology CV Exam: Regular Gastrointestinal/Abdomen GI Exam: Soft, Non-Tender, Distended GI Remarks ileal conduit opening. Extremeties Extremities Exam: Moderate Edema, Pitting Edema Neurologic Neuro Exam: Alert, Awake, Oriented Psychiatric Psych Exam: Appropriate Responses Assessment/Plan Assessment Summary: VIJAY/Acute Renal Failure, Hypotension, CKD Stage IV Electrolyte Assessment: Metabolic Acidosis Problem List: (1) Anemia in chronic kidney disease ICD Codes: N18.9 - Chronic kidney disease, unspecified; D63.1 - Anemia in chronic kidney disease Status: Acute (2) Hypertension ICD Codes: I10 - Essential (primary) hypertension Status: Chronic (3) Acidemia ICD Codes: E87.2 - Acidosis Status: Acute (4) Acute kidney injury ICD Codes: N17.9 - Acute kidney failure, unspecified Status: Acute (5) Paraplegia ICD Codes: G82.20 - Paraplegia Status: Chronic (6) Paraplegia ICD Codes: G82.20 - Paraplegia Status: Acute (7) Acute on chronic kidney failure ICD Codes: N17.9 - Acute kidney failure, unspecified; N18.9 - Chronic kidney disease, unspecified Status: Chronic Plan Patient has increase in BUN and Creatinine. Also has metabolic acidosis. Seen by urology, possibly have obstructive uropathy. BP is improving. Patient has moderate Hydronephrosis on rt. side, has single kidney. Renal scan did not show uptake, possible due to poor renal function. HD has been on hold, Vascath was removed. Renal scan noted, unlikely to have obstruction. changed to low potassium renal diet. K is now better 5.2. Creatinine also improve to 3.5. No new BMP done. Now for D/C to SNF. I will follow him in 2-3 weeks. Problem Qualifiers (1) Anemia in chronic kidney disease: Qualified Codes: N18.4 - Chronic kidney disease, stage 4 (severe); D63.1 - Anemia in chronic kidney disease (2) Hypertension: Qualified Codes: I10 - Essential (primary) hypertension Lynsey Goldman MD Dec 29, 2016 12:37
[2016-12-29] MEDS: NYSTATIN 100,000 UNIT/GM CREAM 15 GM TOPICAL SCH (12:53)
== END 2016-12-29 13:31 | DRG 682 ==
LOC: HOCA 19:16 → HIMW 12-02 15:00 → HOCB 12-11 00:57
PROVIDERS: ADMIT Hospitalist; ATTEND Internal Medicine
PROC: 02HV33Z Insertion of Infusion Device into Superior Vena Cava, Percutaneous Approach (ICD-10-PCS; principal; 2016-12-04)
PROC: 5A1D70Z Performance of Urinary Filtration, Intermittent, Less than 6 Hours Per Day (ICD-10-PCS; 2016-12-08)
DX: N17.0 Acute kidney failure with tubular necrosis (principal); G93.40 Encephalopathy, unspecified; G95.89 Other specified diseases of spinal cord; A04.72 Enterocolitis due to Clostridium difficile, not specified as recurrent; E87.2 Acidosis; G82.20 Paraplegia, unspecified; I13.0 Hypertensive heart and chronic kidney disease with heart failure and stage 1 through stage 4 chronic kidney disease, or unspecified chronic kidney disease; I50.9 Heart failure, unspecified; M48.02 Spinal stenosis, cervical region; Z68.41 Body mass index [BMI] 40.0-44.9, adult; N39.0 Urinary tract infection, site not specified; L97.423 Non-pressure chronic ulcer of left heel and midfoot with necrosis of muscle; D63.1 Anemia in chronic kidney disease; E78.5 Hyperlipidemia, unspecified; E87.5 Hyperkalemia; I73.9 Peripheral vascular disease, unspecified; N18.4 Chronic kidney disease, stage 4 (severe); N13.30 Unspecified hydronephrosis; G47.33 Obstructive sleep apnea (adult) (pediatric); E66.01 Morbid (severe) obesity due to excess calories; B96.4 Proteus (mirabilis) (morganii) as the cause of diseases classified elsewhere; I25.119 Atherosclerotic heart disease of native coronary artery with unspecified angina pectoris; B96.5 Pseudomonas (aeruginosa) (mallei) (pseudomallei) as the cause of diseases classified elsewhere; I25.2 Old myocardial infarction; K59.00 Constipation, unspecified; Z43.3 Encounter for attention to colostomy; N31.9 Neuromuscular dysfunction of bladder, unspecified; R60.0 Localized edema; R53.1 Weakness; M47.812 Spondylosis without myelopathy or radiculopathy, cervical region; Z95.5 Presence of coronary angioplasty implant and graft; Z95.1 Presence of aortocoronary bypass graft; Z87.442 Personal history of urinary calculi; Z87.440 Personal history of urinary (tract) infections; Z90.5 Acquired absence of kidney; Z93.6 Other artificial openings of urinary tract status; Z88.8 Allergy status to other drugs, medicaments and biological substances; Z91.041 Radiographic dye allergy status
CPT/HCPCS: 36556; 36600; 70250; 71010; 71020; 72050; 72141; 74176; 76937; 77001; 78708; 80048; 80053; 80069; 80074; 81001; 82140; 82272; 82805; 83010; 83615; 83735; 84100; 84132; 84155; 84443; 85007; 85025; 85027; 85044; 85610; 85730; 86880; 87040; 87070; 87077; 87086; 87186; 87205; 87493; 87641; 90935; 93005; 93306; 93880; 94002; 94003; 94060; 96374; A9539; C1752; J0610; J0696; J0743; J1580; J1644; J1940; J2405; J3475; J3480; J7030

== ENCOUNTER 2017-01-04 06:01 | Inpatient (IN) | payer MEDICARE, OTHER ==
[~2017-01-04] VITALS: Ht 165.1 cm; Wt 117.9 kg
[2017-01-04] VITALS (11 sets, daily range): BP systolic 108–154; BP diastolic 51–83; PULSE 52–83; RESP 12–22; TEMP 97–98.1; O2SAT 89–100
[~2017-01-04 06:01] MED LIST changes: -ASCO500T PO; -ASPI81TA11 PO; +BENA25CA4 PO; -FERR325T2 PO; -FLUO0.013 TOPICAL; -FURO1TAB62 PO; -IMIP250I IV; +MORP1TAB24 PO; -MULTTAB67 PO; -OXYC-392 PO; +OXYC1TAB63 PO; -PROT40TA PO; -SODI650T PO; -VANC500I3 PO
[2017-01-04] MEDS ORDERED: SODIUM CHLORIDE 0.9% FLUSH 5 ML FLUSH IV FLUSH PRN (06:15)
[2017-01-04] MEDS ORDERED: SODIUM CHLOR 0.9% 1000 ML INJ 1,000 ML IV SCH (06:15)
--- NOTE | 2017-01-04 06:22 | PD ---
HPI Chief Complaint: Neuro Symptoms/ Deficits Time Seen by Provider: 06:14 Travel History International Travel<30 days: No Contact w/Intl Traveler<30days: No Traveled to known affect area: No History of Present Illness HPI The patient is a 61 year-old male who presents to the emergency department via EMS from [facility] for multiple complaints according to EMS. According to EMS the patient developed some fasciculations and tremors of the upper extremities yesterday. The patient then complained of difficulty with his speech this morning to the nurse, however , onset of timing was unknown. The patient's speech at times is normal, then he falls asleep easily. The patient told EMS, according to their report, that he felt like he was going to " ". Upon arrival the patient does complain of not "feeling well ", states he has fasciculations of his extremities and feels weak. 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 He also notes multiple back surgeries. The patient has a colostomy bag and a "[place] pouch "for urine. The patient was apparently recently released from [facility] and sent to rehabilitation within the last several weeks. The patient denies any head injury or fall, denies any known history of seizures. Symptoms are moderate, there are no current alleviating or exacerbating factors. PFSH Past Medical History Anemia: Yes Arthritis: Yes Asthma: No Autoimmune Disease: No Anxiety: No Depression: No Heart Rhythm Problems: Yes (SB at times) Cancer: No Cardiac Catheterization: Yes Cardiovascular Problems: Yes High Cholesterol: Yes Chemotherapy: No Chest Pain: Yes Congestive Heart Failure: No COPD: No Cerebrovascular Accident: No Coronary Artery Disease: Yes Diabetes: No Endocrine: No Gastrointestinal Disorders: Yes GERD: No Genitourinary: Yes Hiatal Hernia: No Hypertension: Yes Immune Disorder: No Implanted Vascular Access Dvce: Yes Kidney Stones: No Musculoskeletal: Yes Neurologic: Yes Psychiatric: No Reproductive: No Respiratory: No Migraines: No Radiation Therapy: No Renal Failure: Yes (CRI) Seizures: No Sickle Cell Disease: No Sleep Apnea: Yes Thyroid Disease: No Ulcer: No Past Surgical History Abdominal Surgery: Yes ([place] pouch, appendectomy) AICD: No Appendectomy: Yes Arteriovenous Shunt: No Body Medical Devices: VALERIE LEFT FEMUR, BAND AROUND PELVIS AND HIP Cardiac Surgery: Yes (Coronary Artery Bypass, stent placement) Cholecystectomy: Yes Coronary Artery Bypass Graft: Yes (DOUBLE BYPASS 2000) Coronary Stent: Yes (1) Ear Surgery: No Endocrine Surgery: No Eye Surgery: No Genitourinary Surgery: Yes (urinary diversion, left nephrectomy) Gynecologic Surgery: No Insulin Pump: No Joint Replacement: No Oral Surgery: No Pacemaker: No Thoracic Surgery: No Tonsillectomy: Yes Other Surgery: Yes (C5-C6 FUSION, C7 DISCECTOMY 10/27/12) Social History Alcohol Use: No Tobacco Use: No Substance Use: No Allergies-Medications (Allergen,Severity, Reaction): Coded Allergies: chlorpromazine (Verified Allergy, Severe, MUSCLE CONTRACTURES, 11/18/16) diatrizoate meglumine (Verified Allergy, Severe, Anaphylaxis, 11/18/16) gadobenic acid (Verified Allergy, Severe, Anaphylaxis, 11/18/16) gadodiamide (Verified Allergy, Severe, Anaphylaxis, 11/18/16) gadoteridol (Verified Allergy, Severe, Anaphylaxis, 11/18/16) iodixanol (Verified Allergy, Severe, Anaphylaxis, 11/18/16) iohexol (Verified Allergy, Severe, Anaphylaxis, 11/18/16) prochlorperazine (Verified Allergy, Severe, MUSCLE CONTRACTURES, 11/18/16) Reported Meds & Prescriptions Reported Meds & Active Scripts Active Oxycodone-Acetaminophen 5-325 mg Tab 1 Tab PO Q4H PRN Morphine ER (Morphine Sulfate) 15 Mg Tab 15 Mg PO Q12HR Hydralazine (Hydralazine HCl) 100 Mg Tab 100 Mg PO Q12HR Take with meals Baclofen 10 Mg Tab 10 Mg PO Q8HR Benadryl Allergy (Diphenhydramine HCl) 25 Mg Cap 25 Mg PO UNSCH PRN Pantoprazole (Pantoprazole Sodium) 40 Mg Tab 40 Mg PO DAILY 30 Days Vitamin B-12 (Cyanocobalamin) 1,000 Mcg Tab 1,000 Mcg PO DAILY 30 Days C 500/Ana Hips (Ascorbic Acid) 500 Mg Tab 1,000 Mg PO DAILY 30 Days [Simethicone Chew] 80 MG Chew 80 Mg CHEW TID 30 Days Thera/Beta-Carotene (Multiple Vitamin) 1 Tab Tab 1 Tab PO DAILY 30 Days Rocaltrol (Calcitriol) 0.25 Mcg Cap 0.5 Mcg PO DAILY 30 Days Acidophilus/l-Sporogenes (Lactobacillus Acidophilus) 35 Million Cell-25 Million Cell Tab 1 Tab PO TID 30 Days Ondansetron Inj (Ondansetron HCl) 4 Mg/2 Ml Inj 4 Mg IV PUSH Q6H PRN 30 Days Adult Aspirin EC Low Strength (Aspirin) 81 Mg Tabec 81 Mg PO DAILY 30 Days Atorvastatin (Atorvastatin Calcium) 40 Mg Tab 40 Mg PO HS 30 Days Ferosul (Ferrous Sulfate) 325 Mg (65 Mg Iron) Tablet 325 Mg PO TID 30 Days Plavix (Clopidogrel Bisulfate) 75 Mg Tab 75 Mg PO DAILY 30 Days Hospital Bed - Electric 1 Ea Ea Ea .ROUTE DIRECTED [mattress overlay] Ea Norvasc (Amlodipine Besylate) 5 Mg Tab 5 Mg PO DAILY Ondansetron Odt 4 Mg Tab 4 Mg SL Q8HR PRN Polyethylene Glycol 3350 Powder (Polyethylene Glycol) 17 Gm Pow 17 Gm PO DAILY Grx Analgesic Napanoch (Menthol/Methyl Salicylate) 30 Applic/30 Gm Oin 1 Applic TOPICAL Q12HR PRN Metoprolol Succinate ER 24 HR (Metoprolol Succinate) 25 Mg Tab 50 Mg PO DAILY 30 Days Review of Systems Except as stated in HPI: all other systems reviewed are Neg General / Constitutional: No: Fever HENT: No: Lightheadedness Cardiovascular: No: Chest Pain or Discomfort Respiratory: No: Shortness of Breath Gastrointestinal: No: Nausea, Vomiting, Abdominal Pain Musculoskeletal: Positive: Weakness Neurologic: Positive: Tremor, Other (history of paraplegia), No: Headache, Paresthesia, Sensory Disturbance Physical Exam Narrative GENERAL: Awake, alert, 61-year-old male who follows asleep easily, but is easily awakened. SKIN: Focused skin assessment warm/dry. HEAD: Atraumatic. Normocephalic. EYES: Pupils equal and round. Patient is wearing glasses. ENT: No nasal bleeding or discharge. Mucous membranes pink and moist. NECK: Trachea midline. No JVD. CARDIOVASCULAR: Regular rate and rhythm. No murmur appreciated. Heart rate in the 60s. RESPIRATORY: No accessory muscle use. Clear to auscultation. Breath sounds equal bilaterally. GASTROINTESTINAL: Abdomen soft, obese, with a well-healed midline scar. Colostomy in the left lower abdomen. Catheter coming from the right lower quadrant, apparently from a "[place] pouch "according to the patient. MUSCULOSKELETAL: Lower extremities are in booties with atrophy. The patient is able to raise his upper extremities. Fasciculations occasionally noted of the right shoulder girdle muscles. NEUROLOGICAL: Awake and alert. Follows asleep easily, but awakens to verbal commands. He is able to raise his upper extremities, there is no drift, however , after 10 seconds it woke abruptly dropped to the ground, however, this exam is not repeatable. Sensation is intact lower extremities. He is unable to use his lower extremities. Back: Stage I and 2 sacral decubitus ulcers noted. PSYCHIATRIC: Appropriate mood and affect; insight and judgment normal. Data Data Last Documented VS Vital Signs Date Time Temp Pulse Resp B/P (MAP) Pulse Ox O2 Delivery O2 Flow Rate FiO2 01/04/17 06:13 70 20 98 Nasal Cannula 3.00 01/04/17 06:05 98.1 141/83 (102) Orders Orders Ammonia (01/04/17 06:15) Complete Blood Count With Diff (01/04/17 06:15) Comprehensive Metabolic Panel (01/04/17 06:15) Creatine Kinase (Cpk) (01/04/17 06:15) Prothrombin Time / Inr (Pt) (01/04/17 06:15) Act Partial Throm Time (Ptt) (01/04/17 06:15) Urinalysis - C+S If Indicated (01/04/17 06:15) Lactic Acid Sepsis Protocol (01/04/17 06:15) Blood Culture (01/04/17 06:15) Chest, Single Ap (01/04/17 06:15) Ct Brain W/O Iv Contrast(Rout) (01/04/17 06:15) Blood Glucose (01/04/17 06:15) Ecg Monitoring (01/04/17 06:15) Iv Access Insert/Monitor (01/04/17 06:15) Oximetry (01/04/17 06:15) Sodium Chloride 0.9% Flush (Ns Flush) (01/04/17 06:15) Sodium Chlor 0.9% 1000 Ml Inj (Ns 1000 M (01/04/17 06:15) Resp Blood Gas Venous (01/04/17 ) Labs Laboratory Tests Test 01/04/17 06:21 [facility] Medical Decision Making Medical Screen Exam Complete: Yes Emergency Medical Condition: Yes Medical Record Reviewed: Yes Interpretation(s) EKG reveals normal sinus rhythm with a rate of 71. Nonspecific T wave changes noted with inverted T waves in lead V5, V6, 3, and aVF. Differential Diagnosis Differential diagnoses includes intracranial hemorrhage, seizure, fasciculations , hypocalcemia, hypercalcemia, hypokalemia, hyperkalemia, acute renal failure, syringomyelia, sepsis, sleep apnea. Narrative Course IV was established, labs are drawn and sent, and the patient was placed on cardiac telemetry monitoring and continuous pulse oximetry monitoring. EKG was ordered and interpreted. Chest x-ray was ordered. CT of the brain was ordered. VBG reveals a pH is 7.029 with PCO2 55.6, bicarbonate 13.9, base deficit of -15.0, consistent with mixed respiratory/metabolic acidosis. The patient was signed out to the oncoming physician at 7 AM with laboratory evaluation, chest x-ray results, and CT of the brain results pending. Based on the patient's acidosis, the patient will require admission. Condition: Stable Beni Malhotra MD Jan 04, 2017 06:22
[2017-01-04 06:43] LABS: BLOOD GAS VENOUS HCO3 14 mmol/L (22-26); BLOOD GAS VENOUS O2 CONTENT 6.9 Vol % (9.0-17.0); BLOOD GAS VENOUS O2 HGB SAT 57 % (70-76); BLOOD GAS VENOUS PCO2 56 mmHg (44-48); BLOOD GAS VENOUS PO2 35 mmHg (35-40); BLOOD GAS VENOUS pH 7.03 (7.360-7.400); TEMP CORR TO 98.6
[2017-01-04] MEDS ORDERED: COLA100C PO (06:43)
[2017-01-04] MEDS ORDERED: VITA250T3 PO (06:43)
[2017-01-04] MEDS ORDERED: ZINC220T PO (06:43)
[2017-01-04] MEDS ORDERED: COLL30T TOPICAL (06:43)
[2017-01-04 06:44] LABS: CRITICAL VALUE YES; LITER FLOW 3 L/M; OXYGEN DEVICE NASAL CANNULA
[2017-01-04 06:45] LABS: DRAW SITE PIV; STAT YES
[2017-01-04 06:48] LABS: BASOPHIL # 0.1 TH/MM3 (0-0.2); BASOPHIL % 0.4 % (0.0-2.0); EOSINOPHIL # 0.1 TH/MM3 (0-0.4); EOSINOPHIL % 0.7 % (0.0-4.0); HEMATOCRIT 28.2 % (39.0-51.0); LYMPH % 6.9 % (9.0-44.0); MEAN CELL VOLUME 86.7 FL (80.0-100.0); MEAN CORPUSCULAR HEMOGLOBIN 26.7 PG (27.0-34.0); MEAN CORPUSCULAR HGB CONC 30.8 % (32.0-36.0); MONO % 7.3 % (0.0-8.0); NEUT % 84.7 % (16.0-70.0); PLATELET COUNT 225 TH/MM3 (150-450); RED BLOOD COUNT 3.26 MIL/MM3 (4.50-5.90); RED CELL DISTRIBUTION WIDTH 16.4 % (11.6-17.2); WHITE BLOOD COUNT 14.1 TH/MM3 (4.0-11.0)
--- NOTE | 2017-01-04 06:50 | RADRPT ---
EXAM DATE/TIME: 01/04/2017 06:23 [facility] COMPARISON: CHEST PA & LAT, December 14, 2016, 20:24. INDICATIONS : Shortness of breath, stroke like symptoms. MEDICAL HISTORY : None. SURGICAL HISTORY : Fusion, cervical. ENCOUNTER: Initial ACUITY: 1 day PAIN SCORE: 0/10 LOCATION: Bilateral chest FINDINGS: Mild cardiac enlargement with central vascular congestion and interstitial prominence. Consolidation and effusion at the left lung base. CONCLUSION: Likely developing fluid overload Rafi Helton MD on January 04, 2017 at 6:48 Board Certified Radiologist. This report was verified electronically.
[2017-01-04 06:55] LABS: APTT (PATIENT) 31.1 SEC (24.3-30.1); PROTHROMBIN TIME - PATIENT 11.5 SEC (9.8-11.6)
--- NOTE | 2017-01-04 07:01 | RADRPT ---
EXAM DATE/TIME: 01/04/2017 06:46 [facility] COMPARISON: No previous studies available for comparison. INDICATIONS : Tremors, difficulty speaking RADIATION DOSE: 47.93 CTDIvol (mGy) MEDICAL HISTORY : Paralysis SURGICAL HISTORY : Colostomy. Bladder bag ENCOUNTER: Initial ACUITY: 1 day PAIN SCALE: 0/10 LOCATION: cranial TECHNIQUE: Multiple contiguous axial images were obtained of the head. Using automated exposure control and adj ustment of the mA and/or kV according to patient size, radiation dose was kept as low as reasonably a chievable to obtain optimal diagnostic quality images. DICOM format image data is available electro nically for review and comparison. FINDINGS: Examination quality is degraded by motion artifact. CEREBRUM: There is mild to moderate generalized atrophy. Ventricles are enlarged, possibly greater than expecte d given the degree of atrophy. There is coarse calcification along the anterior falx cerebri. No mid line shift, mass lesion, hemorrhage or acute infarction. No extra-axial fluid collections are seen. POSTERIOR FOSSA: The cerebellum and brainstem demonstrate no acute finding. The 4th ventricle is midline. The cerebe llopontine angle is unremarkable. EXTRACRANIAL: Visualized sinuses are clear. SKULL: The calvaria is intact. No evidence of skull fracture. CONCLUSION: 1. Examination quality is degraded by motion artifact. No definite acute finding is identified. 2. Moderate generalized atrophy with mild ventriculomegaly. Correlating with prior studies would be h elpful to determine chronicity of this finding. Rafi Connolly MD on January 04, 2017 at 6:56 Board Certified Radiologist. This report was verified electronically.
[2017-01-04 07:03] LABS: HEMO FLAGS AUTO DIFF
[2017-01-04 07:04] LABS: ALT (GPT) 13 U/L (12-78); ANION GAP 14 MEQ/L (5-15); AST (GOT) 9 U/L (15-37); BICARBONATE 14.9 MEQ/L (21.0-32.0); BLOOD UREA NITROGEN 80 MG/DL (7-18); CHLORIDE 105 MEQ/L (98-107); GLOMERULAR FILTRATION RATE 11 ML/MIN (>89); POTASSIUM 5.3 MEQ/L (3.5-5.1); SODIUM (NA) 134 MEQ/L (136-145)
[2017-01-04 07:07] LABS: ALKALINE PHOSPHATASE 151 U/L (45-117); TOTAL BILIRUBIN ADULT 0.2 MG/DL (0.2-1.0)
[2017-01-04 07:12] LABS: CREATINE KINASE 34 U/L (39-308)
[2017-01-04 07:20] LABS: BACTERIA, URINE MANY /hpf; BLOOD, URINE MOD (NEG); COMMENT (UR) CATH-CULTURE IND; CULTURE IF INDICATED CATH CULTURE IND; GLUCOSE,URINE NEG (NEG); KETONE, URINE NEG (NEG); MUCUS URINE FEW /lpf (OCC); NITRITE,URINE NEG (NEG); RENAL EPITHELIAL CELLS 1 /hpf; URINE COLOR YELLOW (YELLW/STRAW)
[2017-01-04 07:38] LABS: BANDS 9 % (0-6); EOSINOPHILS 1 % (0-4); MYELOCYTES 2 % (0-0); NEUTROPHIL # MANUAL DIFF 11.4 TH/MM3 (1.8-7.7); POLYS (SEG NEUTROPHILS) 70 % (16-70); WBC DIFF SAMPLE 100
[2017-01-04 07:40] LABS: PLATELET ESTIMATE SMEAR NORMAL (NORMAL); PLATELET MORPHOLOGY NORMAL (NORMAL); SCAN/DIFF FINAL DIFF MANUAL
--- NOTE | 2017-01-04 08:13 | PD ---
Physical Exam Narrative Patient was seen by ED physician and signed out to me. Data Data Last Documented VS Vital Signs Date Time Temp Pulse Resp B/P (MAP) Pulse Ox O2 Delivery O2 Flow Rate FiO2 01/04/17 07:52 52 18 134/63 (86) 96 Nasal Cannula 2.00 01/04/17 06:05 98.1 Orders Orders Ammonia (01/04/17 06:15) Complete Blood Count With Diff (01/04/17 06:15) Comprehensive Metabolic Panel (01/04/17:15) Creatine Kinase (Cpk) (01/04/17 06:15) Prothrombin Time / Inr (Pt) (01/04/17:15) Act Partial Throm Time (Ptt) (01/04/17:15) Urinalysis - C+S If Indicated (01/04/17 06:15) Lactic Acid Sepsis Protocol (01/04/17 06:15) Blood Culture (01/04/17 06:15) Chest, Single Ap (01/04/17 06:15) Ct Brain W/O Iv Contrast(Rout) (01/04/17 06:15) Blood Glucose (01/04/17 06:15) Ecg Monitoring (01/04/17 06:15) Iv Access Insert/Monitor (01/04/17:15) Oximetry (01/04/17 06:15) Sodium Chloride 0.9% Flush (Ns Flush) (01/04/17 06:15) Sodium Chlor 0.9% 1000 Ml Inj (Ns 1000 M (01/04/17 06:15) Resp Blood Gas Venous (01/04/17 ) Blood Gas Venous (Vbg) (01/04/17 06:23) Urine Culture (01/04/17 06:21) Electrocardiogram (01/04/17 06:13) Ceftriaxone Inj (Rocephin Inj) (01/04/17 08:15) Sodium Bicarbonate 8.4% Inj (Sodium Bica (01/04/17 08:15) Labs Laboratory Tests Test 01/04/17 06:21 01/04/17 06:23 White Blood Count 14.1 TH/MM3 Red Blood Count 3.26 MIL/MM3 Hemoglobin 8.7 GM/DL Hematocrit 28.2 % Mean Corpuscular Volume 86.7 FL Mean Corpuscular Hemoglobin 26.7 PG Mean Corpuscular Hemoglobin Concent 30.8 % Red Cell Distribution Width 16.4 % Platelet Count 225 TH/MM3 Mean Platelet Volume 8.1 FL Neutrophils (%) (Auto) 84.7 % Lymphocytes (%) (Auto) 6.9 % Monocytes (%) (Auto) 7.3 % Eosinophils (%) (Auto) 0.7 % Basophils (%) (Auto) 0.4 % Neutrophils # (Auto) 12.0 TH/MM3 Lymphocytes # (Auto) 1.0 TH/MM3 Monocytes # (Auto) 1.0 TH/MM3 Eosinophils # (Auto) 0.1 TH/MM3 Basophils # (Auto) 0.1 TH/MM3 CBC Comment AUTO DIFF Differential Total Cells Counted 100 Neutrophils % (Manual) 70 % Band Neutrophils % 9 % Lymphocytes % 10 % Monocytes % 8 % Eosinophils % 1 % Neutrophils # (Manual) 11.4 TH/MM3 Myelocytes 2 % Differential Comment FINAL DIFF MANUAL Platelet Estimate NORMAL Platelet Morphology Comment NORMAL Prothrombin Time 11.5 SEC Prothromb Time International Ratio 1.0 RATIO Activated Partial Thromboplast Time 31.1 SEC Urine Color YELLOW Urine Turbidity HAZY Urine pH 7.0 Urine Specific [place] 1.012 Urine Protein 100 mg/dL Urine Glucose (UA) NEG mg/dL Urine Ketones NEG mg/dL Urine Occult Blood MOD Urine Nitrite NEG Urine Bilirubin NEG Urine Urobilinogen LESS THAN 2.0 MG/DL Urine Leukocyte Esterase LARGE Urine RBC 26 /hpf Urine WBC 101 /hpf Urine WBC Clumps RARE Urine Renal Epithelial Cells 1 /hpf Urine Amorphous Sediment RARE Urine Bacteria MANY /hpf Urine Mucus FEW /lpf Microscopic Urinalysis Comment CATH-CULTURE IND Blood Urea Nitrogen 80 MG/DL Creatinine 5.20 MG/DL Random Glucose 109 MG/DL Total Protein 7.5 GM/DL Albumin 3.0 GM/DL Calcium Level 8.3 MG/DL Alkaline Phosphatase 151 U/L Aspartate Amino Transf (AST/SGOT) 9 U/L Alanine Aminotransferase (ALT/SGPT) 13 U/L Total Bilirubin 0.2 MG/DL Sodium Level 134 MEQ/L Potassium Level 5.3 MEQ/L Chloride Level 105 MEQ/L Carbon Dioxide Level 14.9 MEQ/L Anion Gap 14 MEQ/L Estimat Glomerular Filtration Rate 11 ML/MIN Lactic Acid Level 0.7 mmol/L Ammonia 44 MCMOL/L Total Creatine Kinase 34 U/L Blood Gas Puncture Site PIV Blood Gas Patient Temperature 98.6 Venous Blood pH 7.03 Venous Blood Partial Pressure CO2 56 mmHg Venous Blood Partial Pressure O2 35 mmHg Venous Blood HCO3 14 mmol/L Venous Blood Oxygen Saturation 57 % Venous Blood Oxygen Content 6.9 Vol % Venous Blood Base Excess -15.0 mmol/L Oxygen Delivery Device NASAL CANNULA Blood Gas Liter Flow 3 L/M [facility] Supervised Visit with LISA: No Interpretation(s) 8:03 AM. Chest x-ray shows likely developing fluid overload. CT scan of the brain shows no acute process. Chronic changes. Venous blood gas shows pH 7.03. PCO2 of 56. Bicarbonate 14. Patient on 3 L nasal cannula. CBC WBC 14.1. Hemoglobin 8.7 hematocrit 20.2. 70 neutrophil. 9 bands. Sodium 134. Potassium 5.3. Chloride 105. Bicarbonate 14.9. BUN 80. Creatinine 5.2. GFR 11. Blood gases 0.7. Calcium 8.3. Ammonia 44. UA positive for WBC, RBC and bacteria. Narrative Course 61-year-old male with complaint of fasciculation on arms and shoulders and possible speech problem. Patient was seen by ED physician and signed out to me. Sodium bicarbonate 100 mEq IV given. Rocephin 1 g IV given. Diagnosis Primary Impression: UTI (urinary tract infection) Qualified Codes: N30.00 - Acute cystitis without hematuria Additional Impressions: Metabolic acidosis Acute renal failure superimposed on chronic kidney disease Qualified Codes: N17.9 - Acute kidney failure, unspecified; N18.5 - Chronic kidney disease, stage 5 Admitting Information Admitting Physician Requests: Admit Condition: Stable Robert Davis MD Jan 04, 2017 08:13
[2017-01-04] MEDS ORDERED: SODIUM BICARBONATE 8.4% INJ 50 MEQ/50 ML SYR IV PUSH ONE ×2 (08:15→18:00)
[2017-01-04] MEDS ORDERED: cefTRIAXone INJ 1,000 MG in SODIUM CHLORIDE 0.9% INJ 100 ML IV ONE (08:15)
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
[2017-01-04] MEDS ORDERED: ONDANSETRON HCL 4 MG/2 ML VIAL IVP PRN (09:00)
[2017-01-04] MEDS ORDERED: MAGNESIUM HYDROXIDE SUSP 30 ML CUP PO PRN (09:00)
[2017-01-04] MEDS: SODIUM CHLORIDE 0.9% FLUSH 10 ML FLUSH IV FLUSH SCH ×2 (09:00→20:49)
[2017-01-04] MEDS ORDERED: ACETAMINOPHEN 325 MG TAB PO PRN (09:00)
[2017-01-04] MEDS ORDERED: oxyCODONE/ACETAMINOPHEN 5 MG/325 MG TAB PO PRN (09:00)
[2017-01-04] MEDS ORDERED: SODIUM CHLORIDE 0.9% FLUSH 10 ML FLUSH IV FLUSH PRN (09:00)
[2017-01-04] MEDS ORDERED: LACTULOSE SYRUP 20 GM/30 ML CUP PO PRN (09:00)
[2017-01-04] MEDS ORDERED: SENNOSIDES 8.6 MG TAB PO PRN (09:00)
[2017-01-04] MEDS ORDERED: BISACODYL 10 MG SUPP RECTAL PRN (09:00)
[2017-01-04] MEDS ORDERED: NALOXONE HCL 0.4 MG/ML AMP IV PUSH PRN (09:00)
[2017-01-04] MEDS ORDERED: COLLAGENASE OINT 30 GM TUBE TOPICAL SCH (10:00)
[2017-01-04] MEDS: DOCUSATE SODIUM 50 MG/SENNA 8.6 MG TAB PO SCH ×2 (12:00→20:53)
[2017-01-04] MEDS: CLOPIDOGREL 75 MG TAB PO SCH (12:00)
[2017-01-04] MEDS: MULTIVITAMIN TAB PO SCH (12:00)
[2017-01-04] MEDS: ASPIRIN EC 81 MG TABEC PO SCH (12:00)
[2017-01-04] MEDS: hydrALAZINE HCL 100 MG TAB PO SCH ×2 (12:00→20:53)
[2017-01-04] MEDS: CYANOCOBALAMIN 1,000 MCG TAB PO SCH (12:00)
[2017-01-04] MEDS: CALCITRIOL 0.25 MCG CAP PO SCH (12:00)
[2017-01-04] MEDS: ASCORBIC ACID 500 MG TAB PO SCH (12:00)
[2017-01-04] MEDS: METOPROLOL SUCCINATE 50 MG EXTENDED RELEASE TAB PO SCH (12:00)
[2017-01-04] MEDS: amLODIPine BESYLATE 5 MG TAB PO SCH (12:00)
[2017-01-04] MEDS: HEPARIN SODIUM - SQ 10,000 UNITS/ML VIAL SQ SCH ×2 (12:00→20:49)
[2017-01-04] MEDS: MORPHINE SULFATE 15 MG CONTROLLED RELEASE TAB PO SCH ×2 (12:00→20:53)
[2017-01-04] MEDS: ZINC SULFATE 220 MG CAP PO SCH (12:00)
--- NOTE | 2017-01-04 12:37 | EKG ---
Date Performed: 01/04/2017 Time Performed: 06:13:48 PTAGE: 61 years EKG: Sinus rhythm NONSPECIFIC ST T-WAVE ABNORMALITY Compared to prior tracing no significant change BORDERLINE ECG PREVIOUS TRACING : 12/02/2016 06.48 DOCTOR: Monico Rios Interpretating Date/Time 01/04/2017 12:31:30
--- NOTE | 2017-01-04 13:30 | MB ---
cc: PREET ROMO MD DATE OF CONSULTATION: 01/04/2017 REASON FOR CONSULTATION Chronic kidney disease with acute kidney injury, came to the hospital because of altered mental status. HISTORY OF PRESENT ILLNESS I was called to see the patient because of chronic kidney disease. The patient has past medical history of hypertension, hyperlipidemia, anemia, arthritis, paraplegia, history of nephrectomy, chronic kidney disease and ileostomy, came to the hospital, was sent from the detention because of confusion. I was called to see the patient with chronic kidney disease. The patient has a single kidney and has known chronic kidney disease. He has recurrent urinary tract infection and acute kidney injury and the last time he was here he also had hemodialysis because the creatinine got worse and then he was taken off dialysis because creatinine improved and it was around 3.5-4.0 when he was discharged with a GFR of 15-18, so he was borderline at the verge of dialysis. The patient was discharged on December 29 and he went to the nursing facility and from there he was sent back to the hospital because of altered mental status, tremors and fasciculation of his upper arms and difficulty talking. It was found here that his creatinine has gone up from 3.5 to 5.2 now and potassium is 5.3. He is also quite acidotic with a bicarb of 14.9. The patient is not able to give history, he keeps on repeating things. He was able to tell his name and my name and he knows that he is in the hospital but he is not fully oriented and not able to give much more history. According to the chart he was sent because he was not talking well and his speech was slurred and he has tremors of his upper arm. There is no known history of nausea or vomiting or diarrhea. He has ileostomy with a pouch and the catheter in the ileostomy. Also he has a colostomy. PAST MEDICAL HISTORY 1. Paraplegia. 2. Chronic kidney disease with single kidney. 3. Hypertension. 4. Chronic anemia. 5. Recurrent urinary tract infection. 6. Chronic ulceration of the left heel. 7. Hypertension. 8. Ischemic heart disease. 9. History of partial bowel obstruction. PAST SURGICAL HISTORY 1. Cholecystectomy. 2. Appendicectomy. 3. Band around the hip and the pelvis with a skin graft. 4. Coronary artery bypass grafting. 5. Left nephrectomy. 6. Neobladder formation with reconstruction of [place] Pouch. REVIEW OF SYSTEMS Is very limited since the patient is not answering most of the questions but he denies any headache, dizziness or blurring of vision. He is feeling weak and tired. Denies any abdominal pain. SOCIAL HISTORY The patient lives in a nursing facility. There is no history of alcoholism or smoking. FAMILY HISTORY Noncontributory. ALLERGIES He has allergy to multiple medications including: CHLORPROMAZINE, DIATRIZOATE, GADOBENIC ACID, IOHEXOL, PROCHLORPERAZINE. MEDICATION Currently he is on following medications: 1. IV fluids normal saline at 125 an hour. 2. Margarita-Colace one tablet b.i.d. 3. Amlodipine 5 mg daily. 4. Ascorbic acid 1 gram once a day. 5. Aspirin 81 mg daily. 6. Calcitriol 0.5 mcg daily. 7. Plavix 75 mg daily. 8. Santyl ointment topical application. 9. Toprol 50 mg once a day. 10. Vitamin B12 1000 mcg once a day. 11. Zinc sulfate 220 mg daily. 12. Theragran one tablet daily. 13. Lipitor 40 mg once a day. 14. Heparin 5000 units q. 12-hour. 15. Hydralazine 100 mg q. 12-hour. 16. Morphine as needed. 17. Ferrous sulfate 325 mg once a day. 18. Simethicone 80 mg t.i.d. 19. Percocet as needed. 20. Zofran as needed. PHYSICAL EXAMINATION GENERAL: The patient is awake, alert. He is not fully oriented. He is disoriented in place and person. VITAL SIGNS: Last blood pressure is 154/70, temperature 98.1, oxygen saturation on 4 liters nasal cannula is 96%. HEENT: Pupils are mid constricted. Nonicteric sclerae, conjunctivae pale. NECK: Supple. JVD is not elevated. LUNGS: The patient has bilateral good air entry with scattered wheezing. HEART: S1, S2, regular rhythm. ABDOMEN: Abdomen is distended, soft, lax. There is a colostomy bag and ileoconduit with catheter in it. No tenderness. Bowel sounds positive. EXTREMITIES: He has bilateral 1+ leg edema. INVESTIGATION WBC count is 14.1, hemoglobin 8.7, platelet count of 225, neutrophils 84.7%, sodium 134, potassium 5.3, chloride 105, bicarb 14.9, BUN 80, creatinine 5.2, calcium is 8.3, AST is 9, ALT is 13, ammonia level is 44, creatinine kinase 34, albumin is 3.0, INR is 1.0. Urinalysis showing protein of 100, RBC 26, WBC 101, many bacteria and urine culture is pending. Blood culture is pending. IMAGING STUDIES The patient has chest x-ray done which shows mild cardiomegaly with some increased vascular congestion. CT scan of the brain was done which shows generalized atrophy, no acute finding. ASSESSMENT/PLAN 1. Chronic kidney disease with acute kidney injury. 2. Metabolic acidosis. 3. Urinary tract infection. 4. Rule-out sepsis. 5. Recent history of C-difficile colitis. 6. History of paraplegia. 7. Anemia. The patient received one dose of ceftriaxone and sodium bicarbonate. I will change IV fluid and give him IV fluid without sodium bicarbonate. The patient has advanced renal disease with single kidney and there is an element of acute kidney injury which possibly will improve, may be related to dehydration or possibility of ATN. At present continue the IV fluid and antibiotic and follow the urine output and BUN and creatinine. Avoid any nephrotoxins. Thank you for the consultation and I will follow the patient while he is in the hospital. MD CLAUDE Varner/BLAYNEL /12:19 PM /12:45 PM
[2017-01-04] MEDS: BACLOFEN 10 MG TAB PO SCH ×2 (14:41→22:00)
[2017-01-04] MEDS: SIMETHICONE 80 MG CHEWABLE TAB CHEW SCH ×2 (14:41→17:44)
[2017-01-04] MEDS: FERROUS SULFATE 325 MG (65 MG ELEMENTAL IRON) TAB PO SCH ×2 (14:41→17:44)
[2017-01-04] MEDS: RESP: ALBUTEROL 2.5 MG/IPRATROPIUM 0.5 MG NEB (SCH) NEB ×3 (15:54→23:24)
[2017-01-04 16:22] LABS: BLOOD GAS BASE EXCESS -13.9 mmol/L (-2-2); BLOOD GAS CARBOXYHEMOGLOBIN 1.3 % (0-4); BLOOD GAS HCO3 14 mmol/L (22-26); BLOOD GAS O2 HGB SATURATION 91 % (90-100); BLOOD GAS OXYGEN CONTENT 10.5 Vol % (12.0-20.0); BLOOD GAS PCO2 49 mmHg (38-42); BLOOD GAS PO2 77 mmHg (61-120); BLOOD GAS TOTAL HGB 8.1 G/DL (12.0-16.0); TEMP CORR TO 98.6
[2017-01-04 16:24] LABS: CRITICAL VALUE YES
[2017-01-04 16:25] LABS: DRAW SITE RT RADIAL; LITER FLOW 3 L/M; NUMBER OF ARTERIAL PUNCTURES 1; OXYGEN DEVICE NASAL CANNULA; STAT YES; ULNAR PULSE PRESENT
--- NOTE | 2017-01-04 16:25 | HHI.PR ---
Addendum to Inpatient Note Addendum Reason: Additional Documentation Additional Information KATHY Temple called; residents responded due to close proximity. Patient noted to have AMS and intermittent responsiveness. Vital signs reviewed, wnl on NC normal sats. ABG collected and metabolic acidosis with bicarb 18 noted. EKG showing intermittent PVCs, otherwise no ST changes, TWI, or peaked Ts. Exam shows deep slow breaths, CV exam showing murmur, systolic, best heard at right heart border. No obvious LE edema. Spoke with admitting doctor, Dr. Hawkins, who requests patient to critical care floor and will consult critical care. Patient transferred to [facility] SDW Kenia Vasquez MD R2 Jan 04, 2017 16:25
[2017-01-04] MEDS ORDERED: ROCURONIUM INJ 50 MG/5 ML VIAL ONE (16:47)
[2017-01-04] MEDS ORDERED: MIDAZOLAM HCL 5 MG/ML VIAL (1 ML) ONE (16:47)
[2017-01-04] MEDS ORDERED: Vancomycin Consult Pharmacy 1 EA OTHER SCH (17:15)
[2017-01-04] MEDS ORDERED: NOREPINEPHRINE-DEXTROSE DRIP 250 ML IV ONE (17:25)
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
[2017-01-04] MEDS ORDERED: CEFEPIME INJ 2,000 MG in SODIUM CHLORIDE 0.9% INJ 100 ML IV SCH (18:00)
[2017-01-04] MEDS ORDERED: FUROSEMIDE 100 MG/10 ML VIAL IV PUSH ONE (18:00)
--- NOTE | 2017-01-04 19:00 | RADRPT ---
EXAM DATE/TIME: 01/04/2017 17:50 [place] COMPARISON: CHEST SINGLE AP, January 04, 2017, 6:23. INDICATIONS : Central line position evaluation. MEDICAL HISTORY : Paralysis. SURGICAL HISTORY : Colostomy. ENCOUNTER: Subsequent ACUITY: 1 day PAIN SCORE: 0/10 LOCATION: Bilateral chest FINDINGS: The cardiac silhouette is normal in transverse diameter. Median sternotomy wires are present. There a re findings of congestive heart failure with interstitial and alveolar opacity bilaterally. There has been no significant change when compared to the prior exam. A left sided subclavian vein catheter i s in place without pneumothorax with its tip in the superior vena cava. CONCLUSION: 1. Uncomplicated line placement. No evidence of pneumothorax. Monico Brandon MD on January 04, 2017 at 18:58 Board Certified Radiologist. This report was verified electronically.
[2017-01-04] MEDS ORDERED: VANCOMYCIN INJ 1,250 MG in SODIUM CHLOR 0.9% 250 ML INJ 250 ML IV ONE (20:00)
[2017-01-04] MEDS: MILRINONE INJ 20 MG in SODIUM CHLORIDE 0.9% INJ 80 ML IV SCH (20:48)
[2017-01-04] MEDS: guaiFENesin E.R. 600 MG TAB PO SCH (20:53)
[2017-01-04] MEDS ORDERED: ATORVASTATIN 40 MG TAB PO SCH (21:00)
[2017-01-05] VITALS (18 sets, daily range): BP systolic 90–165; BP diastolic 53–98; PULSE 68–193; RESP 11–35; TEMP 97.2–98.8; O2SAT 90–100
[2017-01-05] MEDS: MILRINONE INJ 20 MG in SODIUM CHLORIDE 0.9% INJ 80 ML IV SCH (01:56)
[2017-01-05 04:02] LABS: BLOOD GAS BASE EXCESS -13.2 mmol/L (-2-2); BLOOD GAS CARBOXYHEMOGLOBIN 1.1 % (0-4); BLOOD GAS HCO3 15 mmol/L (22-26); BLOOD GAS METHEMOGLOBIN 0.9 % (0-2); BLOOD GAS O2 HGB SATURATION 96 % (90-100); BLOOD GAS OXYGEN CONTENT 11.2 Vol % (12.0-20.0); BLOOD GAS PCO2 49 mmHg (38-42); BLOOD GAS PO2 121 mmHg (61-120); BLOOD GAS TOTAL HGB 8.1 G/DL (12.0-16.0); TEMP CORR TO 98.6
[2017-01-05 04:04] LABS: CRITICAL VALUE YES; FIO2 50 %; OXYGEN DEVICE BIPAP; VENT SETTINGS IPAP 12 EPAP 5
[2017-01-05 04:05] LABS: DRAW SITE RT RADIAL; NUMBER OF ARTERIAL PUNCTURES 1; STAT NO; ULNAR PULSE PRESENT
[2017-01-05] MEDS: RESP: ALBUTEROL 2.5 MG/IPRATROPIUM 0.5 MG NEB (SCH) NEB ×4 (04:34→11:28)
[2017-01-05] MEDS: BACLOFEN 10 MG TAB PO SCH ×2 (05:05→13:45)
[2017-01-05] MEDS ORDERED: SODIUM BICARBONATE 8.4% INJ 50 MEQ/50 ML SYR IV PUSH ONE (05:15)
[2017-01-05] MEDS: SODIUM BICARBONATE 8.4% INJ 50 MEQ in SODIUM CHLOR 0.45% 1000 ML INJ 1,000 ML IV SCH ×2 (05:36→13:46)
[2017-01-05] MEDS ORDERED: DILTIAZEM HCL 25 MG/5 ML VIAL IV PUSH ONE (05:45)
[2017-01-05] MEDS: DILTIAZEM INJ 125 MG in SODIUM CHLORIDE 0.9% INJ 100 ML IV PRN ×2 (05:56→13:46)
[2017-01-05 06:11] LABS: AUTOMATED NEUTROPHIL # 8.1 TH/MM3 (1.8-7.7); BASOPHIL % 0.4 % (0.0-2.0); EOSINOPHIL % 0.1 % (0.0-4.0); HEMATOCRIT 23.6 % (39.0-51.0); HEMO FLAGS DIFF FINAL; LYMPH % 3.6 % (9.0-44.0); LYMPHOCYTE # 0.3 TH/MM3 (1.0-4.8); MEAN CELL VOLUME 84.8 FL (80.0-100.0); MEAN CORPUSCULAR HEMOGLOBIN 27.4 PG (27.0-34.0); MEAN CORPUSCULAR HGB CONC 32.3 % (32.0-36.0); MONO % 5.3 % (0.0-8.0); NEUT % 90.6 % (16.0-70.0); PLATELET COUNT 163 TH/MM3 (150-450); RED BLOOD COUNT 2.78 MIL/MM3 (4.50-5.90); RED CELL DISTRIBUTION WIDTH 16.5 % (11.6-17.2); WHITE BLOOD COUNT 8.9 TH/MM3 (4.0-11.0)
[2017-01-05 06:34] LABS: ALKALINE PHOSPHATASE 121 U/L (45-117); ALT (GPT) 10 U/L (12-78); ANION GAP 18 MEQ/L (5-15); AST (GOT) 10 U/L (15-37); BICARBONATE 17.3 MEQ/L (21.0-32.0); BLOOD UREA NITROGEN 89 MG/DL (7-18); CHLORIDE 106 MEQ/L (98-107); FERRITIN 133 NG/ML (26-388); GLOMERULAR FILTRATION RATE 11 ML/MIN (>89); SODIUM (NA) 141 MEQ/L (136-145); TOTAL BILIRUBIN ADULT 0.3 MG/DL (0.2-1.0); TRANSFERRIN IRON PROFILE 172 MG/DL (200-360)
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
[2017-01-05] MEDS ORDERED: MORPHINE SULFATE 8 MG/ML INJ IV PUSH PRN ×2 (07:30→15:45)
[2017-01-05] MEDS ORDERED: cefTRIAXone INJ 1,000 MG in SODIUM CHLORIDE 0.9% INJ 100 ML IV SCH (08:00)
[2017-01-05] MEDS: amLODIPine BESYLATE 5 MG TAB PO SCH (09:00)
[2017-01-05] MEDS: CALCITRIOL 0.25 MCG CAP PO SCH (09:00)
[2017-01-05] MEDS: SIMETHICONE 80 MG CHEWABLE TAB CHEW SCH ×2 (09:00→13:00)
[2017-01-05] MEDS: hydrALAZINE HCL 100 MG TAB PO SCH (09:00)
[2017-01-05] MEDS: CYANOCOBALAMIN 1,000 MCG TAB PO SCH (09:00)
[2017-01-05] MEDS: FERROUS SULFATE 325 MG (65 MG ELEMENTAL IRON) TAB PO SCH ×2 (09:00→13:00)
[2017-01-05] MEDS: MORPHINE SULFATE 15 MG CONTROLLED RELEASE TAB PO SCH (09:00)
[2017-01-05] MEDS: DOCUSATE SODIUM 50 MG/SENNA 8.6 MG TAB PO SCH (09:00)
[2017-01-05] MEDS: METOPROLOL SUCCINATE 50 MG EXTENDED RELEASE TAB PO SCH (09:00)
[2017-01-05] MEDS: ZINC SULFATE 220 MG CAP PO SCH (09:00)
[2017-01-05] MEDS: ASPIRIN EC 81 MG TABEC PO SCH (09:00)
[2017-01-05] MEDS: guaiFENesin E.R. 600 MG TAB PO SCH (09:00)
[2017-01-05] MEDS: SODIUM CHLORIDE 0.9% FLUSH 10 ML FLUSH IV FLUSH SCH (09:00)
[2017-01-05] MEDS: MULTIVITAMIN TAB PO SCH (09:00)
[2017-01-05] MEDS: CLOPIDOGREL 75 MG TAB PO SCH (09:00)
[2017-01-05] MEDS: ASCORBIC ACID 500 MG TAB PO SCH (09:00)
--- NOTE | 2017-01-05 09:57 | EKG ---
Date Performed: 01/04/2017 Time Performed: 16:15:46 PTAGE: 61 years EKG: Sinus rhythm with PVC(s) with PAC(s) Lead(s) unsuitable for analysis: V3 Inferior/lateral ST-T changes are nonspe cific Borderline ECG Compared to prior tracing no significant change DOCTOR: Monico Rios Interpretating Date/Time 01/05/2017 09:55:50
[2017-01-05] MEDS ORDERED: PNEUMOCOCCAL POLYVALENT INJ 25 MCG/0.5 ML SYR IM ONE (10:00)
[2017-01-05] MEDS ORDERED: INFLUENZA VIRUS VACCINE (QUADRIVALENT) 0.5 ML SYR IM ONE (10:00)
[2017-01-05] MEDS ORDERED: FUROSEMIDE 20 MG/2 ML VIAL IV PUSH PRN (15:45)
[2017-01-05] MEDS ORDERED: HYOSCYAMINE 0.5 MG/ML AMP IV PUSH PRN (15:45)
[2017-01-05] MEDS ORDERED: MORPHINE SULFATE 4 MG/ML INJ IV PUSH PRN (15:45)
[2017-01-05] MEDS ORDERED: ACETAMINOPHEN 650 MG SUPP RECTAL PRN (15:45)
[2017-01-05] MEDS ORDERED: LORazepam 2 MG/ML VIAL IV PUSH PRN (15:45)
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
--- NOTE | 2017-01-05 15:54 | HHI.NPPN ---
Subjective General Problems: Anemia, Edema Renal Failure: Chronic, Acute, Stage IV History of Present Illness This is 61 years old male patient with past medical history of hypertension, hyperlipidemia, anemia, arthritis, paraplegia, history of nephrectomy, chronic kidney disease and ileostomy, came to the hospital, was sent from the [facility] because of confusion. I was called to see the patient with chronic kidney disease. The patient has a single kidney and has known chronic kidney disease. Additional Remarks Patient is alert, on BIPAP, with moderate shortness of breath. Review of Systems General Constitutional: Fatigue Respiratory Lungs: SOB, Cough, Sputum, Wheeze Cardiovascular Cardiac: Edema, BAEZ Objective Data Data 01/05/17 01/06/17 19:00 07:00 Intake Total 1069.5 ml Balance 1069.5 ml Intake IV Total 1069.5 ml Vital Signs Date Time Temp Pulse Resp B/P (MAP) Pulse Ox O2 Delivery O2 Flow Rate FiO2 01/05/17 14:12 94 Nasal Cannula 4.00 01/05/17 13:46 81 153/69 01/05/17 11:28 93 35 01/05/17 10:00 77 01/05/17 08:34 95 35 01/05/17 08:00 97.9 141 11 116/57 (76) 95 01/05/17 08:00 141 01/05/17 07:00 98 Bi-Pap 35 01/05/17 07:00 191 01/05/17 06:00 193 01/05/17 05:56 188 166/72 01/05/17 04:34 95 35 01/05/17 04:00 97.6 100 22 127/61 (83) 96 01/05/17 04:00 100 01/05/17 02:00 85 01/05/17 01:56 97 106/53 01/05/17 01:06 100 50 01/05/17 00:00 95 01/05/17 00:00 97.2 95 18 130/98 (109) 98 01/04/17 22:00 83 01/04/17 21:33 99 50 01/04/17 20:48 58 108/55 01/04/17 20:00 58 01/04/17 20:00 97.5 58 12 108/55 (72) 100 01/04/17 19:00 98 Bi-Pap 50 01/04/17 18:25 Bi-Pap 50 01/04/17 18:25 100 50 01/04/17 16:45 71 01/04/17 16:45 97.0 71 12 138/62 (87) 94 -: 01/05/17 0550 01/05/17 0550 Physical Exam General Appearance: No Acute Distress, Comfortable Eyes Eye Exam: Pupils Equal Throat Throat Exam: Oral Mucosa [place] & Moist Neck Neck Exam: Neck Supple Pulmonary Resp Exam: Breath Sounds Equal, No Distress, Rhonchi, Decreased Bases, Diminished Breath Sounds Cardiology CV Exam: Regular, Normal Sinus Rhythm Gastrointestinal/Abdomen GI Exam: Soft, Non-Tender, Bowel Sounds Present, Distended (with colostomy and ileostomy.) Extremeties Extremities Exam: Moderate Edema, Pitting Edema, Dependent Edema Neurologic Neuro Exam: Alert, Awake Assessment/Plan Assessment Summary: VIJAY/Acute Renal Failure, Hypertension, CKD Stage IV Electrolyte Assessment: Metabolic Acidosis Problem List: (1) Chronic kidney disease (CKD) ICD Codes: N18.9 - Chronic kidney disease, unspecified (2) Anemia ICD Codes: D64.9 - Anemia, unspecified Status: Chronic (3) Leukocytosis ICD Codes: D72.829 - Elevated white blood cell count, unspecified Status: Acute (4) Respiratory distress ICD Codes: R06.00 - Dyspnea, unspecified Status: Acute (5) Stage II pressure ulcer of sacral region ICD Codes: L89.152 - Pressure ulcer of sacral region, stage 2 Status: Acute (6) Morbid obesity with BMI of 45.0-49.9, adult ICD Codes: E66.01 - Morbid (severe) obesity due to excess calories; Z68.42 - Body mass index (BMI) 45.0-49.9, adult Status: Chronic (7) Acute respiratory distress ICD Codes: R06.00 - Dyspnea, unspecified (8) Colostomy care ICD Codes: Z43.3 - Encounter for attention to colostomy Status: Chronic (9) Metabolic acidosis ICD Codes: E87.2 - Acidosis Status: Acute (10) Paraplegia ICD Codes: G82.20 - Paraplegia Status: Acute Plan Patient has single kidney, was on Dialysis, then Creatinine improved and HD was stopped. He was discharged with Creatinine of 3.5-4.0, with GFR close to 15-18 ml/min. Creatinine now increased, also has metabolic acidosis, On Cefepime, and now on BIPAP. Getting IVF with NaHco3. If creatinine jot improving, possibly will need to start on Dialysis. Lynsey Goldman MD Jan 05, 2017 15:54
[2017-01-05] MEDS: LORazepam 2 MG/ML VIAL IV PUSH PRN (17:57)
[2017-01-05] MEDS ORDERED: SODIUM CHLORIDE 0.9% FLUSH 10 ML FLUSH IV FLUSH SCH (21:00)
[2017-01-05] MEDS: MORPHINE SULFATE 2 MG/ML INJ IV PUSH SCH (22:00)
[2017-01-05] MEDS: LORazepam 2 MG/ML VIAL IV PUSH SCH (22:00)
[2017-01-06] VITALS (7 sets, daily range): BP systolic 149–169; BP diastolic 64–82; PULSE 82–98; RESP 16–20; TEMP 97.8–98.7; O2SAT 89–92
[2017-01-06] MEDS: LORazepam 2 MG/ML VIAL IV PUSH SCH ×6 (02:07→22:54)
[2017-01-06] MEDS: MORPHINE SULFATE 2 MG/ML INJ IV PUSH SCH ×6 (02:08→22:54)
--- NOTE | 2017-01-06 11:02 | HHI.NPPN ---
Subjective General Problems: Anemia, Edema Renal Failure: Chronic, Acute, Stage IV History of Present Illness This is 61 years old male patient with past medical history of hypertension, hyperlipidemia, anemia, arthritis, paraplegia, history of nephrectomy, chronic kidney disease and ileostomy, came to the hospital, was sent from the [facility] because of confusion. I was called to see the patient with chronic kidney disease. The patient has a single kidney and has known chronic kidney disease. Additional Remarks Patient is sleepy, wakes up, not in distress. Review of Systems General Constitutional: Fatigue Respiratory Lungs: SOB, Cough, Sputum, Wheeze Cardiovascular Cardiac: Edema, BAEZ Objective Data Data Vital Signs Date Time Temp Pulse Resp B/P (MAP) Pulse Ox O2 Delivery O2 Flow Rate FiO2 01/06/17 09:53 92 Nasal Cannula 4.00 01/06/17 08:00 98.2 88 20 149/64 (92) 91 01/06/17 04:00 98.3 91 16 165/82 (109) 89 01/06/17 00:00 98.7 88 16 163/73 (103) 92 01/05/17 20:15 Nasal Cannula 4.00 01/05/17 20:00 98.8 75 16 133/64 (87) 91 01/05/17 18:00 72 01/05/17 18:00 98.2 70 18 102/55 (71) 90 01/05/17 16:00 98.7 82 19 165/71 (102) 94 01/05/17 16:00 82 01/05/17 15:00 76 01/05/17 14:12 94 Nasal Cannula 4.00 01/05/17 14:00 68 01/05/17 13:46 81 153/69 01/05/17 12:00 98.7 68 35 90/53 (65) 95 01/05/17 12:00 68 01/05/17 11:28 93 35 -: 01/05/17 0550 01/05/17 0550 Physical Exam General Appearance: No Acute Distress, Comfortable Eyes Eye Exam: Pupils Equal Throat Throat Exam: Oral Mucosa [place] & Moist Neck Neck Exam: Neck Supple Pulmonary Resp Exam: Breath Sounds Equal, No Distress, Rhonchi, Decreased Bases, Diminished Breath Sounds Cardiology CV Exam: Regular, Normal Sinus Rhythm Gastrointestinal/Abdomen GI Exam: Soft, Non-Tender, Bowel Sounds Present, Distended (with colostomy and ileostomy.) Extremeties Extremities Exam: Moderate Edema, Pitting Edema, Dependent Edema Neurologic Neuro Exam: Alert, Awake Assessment/Plan Assessment Summary: VIJAY/Acute Renal Failure, Hypertension, CKD Stage IV Electrolyte Assessment: Metabolic Acidosis Problem List: (1) Chronic kidney disease (CKD) ICD Codes: N18.9 - Chronic kidney disease, unspecified (2) Anemia ICD Codes: D64.9 - Anemia, unspecified Status: Chronic (3) Leukocytosis ICD Codes: D72.829 - Elevated white blood cell count, unspecified Status: Acute (4) Respiratory distress ICD Codes: R06.00 - Dyspnea, unspecified Status: Acute (5) Stage II pressure ulcer of sacral region ICD Codes: L89.152 - Pressure ulcer of sacral region, stage 2 Status: Acute (6) Morbid obesity with BMI of 45.0-49.9, adult ICD Codes: E66.01 - Morbid (severe) obesity due to excess calories; Z68.42 - Body mass index (BMI) 45.0-49.9, adult Status: Chronic (7) Acute respiratory distress ICD Codes: R06.00 - Dyspnea, unspecified (8) Colostomy care ICD Codes: Z43.3 - Encounter for attention to colostomy Status: Chronic (9) Metabolic acidosis ICD Codes: E87.2 - Acidosis Status: Acute (10) Paraplegia ICD Codes: G82.20 - Paraplegia Status: Acute Plan Patient has single kidney, was on Dialysis, then Creatinine improved and HD was stopped. He was discharged with Creatinine of 3.5-4.0, with GFR close to 15-18 ml/min. Creatinine now increased, also has metabolic acidosis, Seen by palliative care, and on comfort care now. I will see PRN if needed. Lynsey Goldman MD Jan 06, 2017 11:02
[2017-01-06] MEDS: SODIUM CHLORIDE 0.9% FLUSH 10 ML FLUSH IV FLUSH PRN (22:53)
[2017-01-07] MEDS: LORazepam 2 MG/ML VIAL IV PUSH SCH ×6 (03:09→21:39)
[2017-01-07] MEDS: MORPHINE SULFATE 2 MG/ML INJ IV PUSH SCH ×6 (03:10→21:57)
[2017-01-07 03:31] VITALS: O2SAT 92
[2017-01-07 08:00] VITALS: PULSE 83
[2017-01-07 09:09] VITALS: O2SAT 92
--- NOTE | 2017-01-07 12:56 | PD.WCN.NOT ---
Wound Consult Description: Consult received for heel wound and sacral area per Dr Hawkins. Communicated with: MIKEY Ferrear Recommendation: Vocera wound care when patient is being repositioned for visualization of sacral wound. Cleanse left heel with wound cleanser. Apply optifoam AG cut to fit in wound bed and then secure with dry cover every 3 days and PRN for soiling or dislodgement (as previously ordered). Continue to use heel raiser boots while patient is in bed. Additional Information: Patient seen on [address] [place] [address] for left heel wound seen previously on last admission. Wound appears improved from last assessment on 12/18/16. Wound presents with 100 % red moist wound bed measuring 1cm x 1cm x 0.2cm with no active drainage and no odor with periwound of scar tissue. Sacrum not visualized at this time as patient is palliative care and was previously repositioned. RN to call when patient is to be cleansed up later. Yeni Giordano [facility] Jan 07, 2017 12:56
[2017-01-07 22:01] VITALS: BP 151/78; PULSE 114; RESP 14; TEMP 100.3; O2SAT 93
[2017-01-08] MEDS: MORPHINE SULFATE 2 MG/ML INJ IV PUSH SCH ×6 (02:00→22:47)
[2017-01-08] MEDS: LORazepam 2 MG/ML VIAL IV PUSH SCH ×6 (02:00→22:47)
[2017-01-08 08:02] VITALS: PULSE 101
[2017-01-08 11:15] VITALS: O2SAT 92
--- NOTE | 2017-01-08 12:31 | HHI.HCPN ---
Reason for visit a. To assist with evaluation and management of symptoms including: dyspnea, pain, aspiration risk, cough. b. To assist medical decision maker(s) with: better understanding of current medical conditions; weighing benefits/burdens of medical treatment options; making medical treatment decisions. . Subjective/Interval History Patient seen and examined on unit. Friend, Alejandro is not currently at bedside. Patient arouses. He report pain is minor at this time. He feels some shortness of breath. He is unable to quantify or qualify his pain. His mouth is full of mucous. I spent about 10 minutes cleaning his mouth with swabs. He says "thank you, no more crud mouth." Patient coughs with oral swabbing, remains high risk for aspiration. He is able to cough up some mucous, use Yankhour to suction orally. Attempted to speak with patient about transfer to care center, he seems open to consideration. Will need to discuss with Alejandro. Left message for Alejandro/YASMEEN to determine if he wants to consider moving patient to the care center. Left another message for HCS at 545pm. Spoke with nursing staff order placed to allow sips of fluid if patient asks. . Family/friend interactions 6pm: spoke with YASMEEN Allen via phone. Medical update provided. Explained NPO status and told his he was ok to give patient sips of fluid if patient requested. He verbalizes understanding. Asked about care center placement, he tells me patient previously said "hell no" to care center and that his job is to help honor patient wishes. He tells me if patient agrees to care center in front of him he will consider it. . Advance Directives Health Care Surrogate: Copy in medical record Durable Power of Business Process Engineer: Copy in medical record Advance Directive Specifics Date completed: September 18, 2011 Health Care Surrogate(s): Designated healthcare surrogate is named as Alejandro Reyes. . Significant change in goals: NO CODE. Comfort measures. . Objective Vital Signs Date Time Temp Pulse Resp B/P (MAP) Pulse Ox O2 Delivery O2 Flow Rate FiO2 01/08/17 11:55 5.00 01/08/17 11:15 92 Nasal Cannula 5.00 01/07/17 22:02 14 01/07/17 22:01 100.3 114 14 151/78 (102) 93 01/07/17 21:12 5.00 01/07/17 19:00 Nasal Cannula 4.00 Intake & Output 01/08/17 01/08/17 07:00 19:00 Output Total 1500 ml Balance -1500 ml Output Urine Total 1500 ml Physical Exam CONSTITUTIONAL/GENERAL: This is an adequately nourished, chronically/critically ill patient, in respiratory distress. TUBES/LINES/DRAINS: oxygen via nasal cannula, PIV, ostomy LLQ. SKIN: No jaundice, rashes, or lesions. Ecchymoses on upper extremities. No wounds seen anteriorly. Skin temperature appropriate. Not diaphoretic. ENT: Hearing grossly normal. Mouth with mucous, lips dry with dried secretions noted, cleaned mouth. CARDIOVASCULAR: Regular rate and rhythm without murmurs, gallops, or rubs. + JVD. RESPIRATORY/CHEST: Mildly labored respirations. GASTROINTESTINAL: Abdomen soft, protuberant. Bowel sounds absent. GENITOURINARY: Without palpable bladder distension. MUSCULOSKELETAL: Extremities with trace edema, + mottling. NEUROLOGICAL: Awakens easily, falls off to sleep during conversation. Answers questions appropriately when awake. Paraplegic. PSYCHIATRIC: No obvious anxiety/depression. no apparent hallucinations or other psychotic thought process. . Diagnostic Tests Result Diagram: 01/05/1754901/05/17549 Microbiology Microbiology Date/Time Source Procedure Growth Status 01/04/17 06:20 Blood Peripheral Aerobic Blood Culture - Preliminary NO GROWTH IN 4 DAYS Resulted 01/04/17 06:20 Blood Peripheral Anaerobic Blood Culture - Preliminary NO GROWTH IN 4 DAYS Resulted 01/04/17 06:21 Urine Catheterized Urine Urine Culture - Final Pseudomonas Aeruginosa Complete Imaging Last Impressions Head CT 01/04/17614 Signed Impressions: Service Date/Time: Wednesday, January 04, 2017 06:46 - CONCLUSION: 1. Examination quality is degraded by motion artifact. No definite acute finding is identified. 2. Moderate generalized atrophy with mild ventriculomegaly. Correlating with prior studies would be helpful to determine chronicity of this finding. Rafi Connolly MD Chest X-Ray 01/04/17614 Signed Impressions: Service Date/Time: Wednesday, January 04, 2017 06:23 - CONCLUSION: Likely developing fluid overload Rafi Helton MD Assessment and Plan Disease Oriented Problem List: (1) Acute respiratory distress (2) UTI (urinary tract infection) (3) Acute renal failure (4) CKD (chronic kidney disease), stage III (5) Systolic heart failure (6) CAD (coronary artery disease) (7) Paraplegia Symptom Scale: (1) Pain 0-10 Scale: Unable to quantify (2) Dyspnea 0-10 Scale: Unable to quantify Pertinent Non-Medical Issues Psychosocial: supported by his friend/healthcare surrogate Alejandro. Spiritual: quaker is not an important part of his life. Declines vacuum metalizing supervisor support at this time. Legal:Patient able to answer questions though lethargic. Recommend shared decision-making at this time. Designated healthcare surrogate is named as Alejandro Reyes. Ethical issues impacting care: no known concerns at this time. . Important Contacts * Alejandro Reyes, friend/HCS: [phone] or [phone] . Prognosis PPS 10, prognosis hours to days. Code Status: No Code Plan * Decision Maker: Patient able to answer questions though lethargic. Recommend shared decision-making at this time. Designated healthcare surrogate is named as Alejandro Reyes. * NO CODE * 6pm: spoke with YASMEEN Allen via phone. Medical update provided. Explained NPO status and told his he was ok to give patient sips of fluid if patient requested. He verbalizes understanding. Asked about care center placement, he tells me patient previously said "hell no" to care center and that his job is to help honor patient wishes. He tells me if patient agrees to care center in front of him he will consider it. * Ok to give sips of fluid if patient asks, order entered. * SYMPTOMS: Pain: reports mild pain during my visit all over. PRN morphine available for respiratory distress or pain. Dyspnea: verbalizes some shortness of breath. Has scheduled Morphine and Lorazepam ordered, has not had any PRN meds in the past 24 hours. * Palliative care will continue to follow throughout hospital course to assist with symptom management and clarification of goals as needed. . Attestation To help prompt me to consider important information that might be impacting today's encounter and assessment, information from prior notes written by myself or my colleagues may have been "brought forward" into today's note. My signature on this note, however, is an attestation that I personally performed the exam, history, and/or decision-making noted today, and, unless otherwise indicated, the interactions with patient, family, and staff as well as the review of records all occurred today. I also attest that the listed assessment and stated plan reflect my best clinical judgment today based on the combination of historical information, prior notes, and today's exam/ interactions. When time spent is documented, it refers only to time spent today by the signer, or if indicated, combined time spent today by collaborating physician/nurse practitioner. Shyann Alcazar Jan 08, 2017 12:31
[2017-01-08 20:00] VITALS: PULSE 93
[2017-01-08 23:50] VITALS: BP 139/70; PULSE 54; RESP 16; TEMP 98; O2SAT 97
[2017-01-09] MEDS: LORazepam 2 MG/ML VIAL IV PUSH SCH ×6 (02:23→22:07)
[2017-01-09] MEDS: MORPHINE SULFATE 2 MG/ML INJ IV PUSH SCH ×6 (02:24→22:06)
[2017-01-09 08:00] VITALS: BP 130/65; PULSE 129; PULSE 88; RESP 20; TEMP 99.6; O2SAT 93
[2017-01-09 12:00] VITALS: BP 130/64; PULSE 88; RESP 20; TEMP 100.1; O2SAT 90
[2017-01-09 16:00] VITALS: BP 134/73; PULSE 83; RESP 20; TEMP 98.6; O2SAT 91
[2017-01-09 20:00] VITALS: BP 121/83; PULSE 153; PULSE 86; RESP 24; TEMP 97.6; O2SAT 94
[2017-01-09 20:35] VITALS: PULSE 176
[2017-01-09] MEDS: LORazepam 2 MG/ML VIAL IV PUSH PRN (21:23)
[2017-01-09 21:54] VITALS: O2SAT 93
[2017-01-10] MEDS: LORazepam 2 MG/ML VIAL IV PUSH SCH ×6 (02:00→22:04)
[2017-01-10] MEDS: MORPHINE SULFATE 2 MG/ML INJ IV PUSH SCH ×6 (02:00→22:05)
[2017-01-10 08:00] VITALS: BP 122/67; PULSE 125; PULSE 154; RESP 20; TEMP 98.3; O2SAT 92
[2017-01-10 17:58] VITALS: RESP 20
[2017-01-10 21:07] VITALS: O2SAT 93
[2017-01-11] MEDS: LORazepam 2 MG/ML VIAL IV PUSH SCH ×3 (02:14→10:25)
[2017-01-11] MEDS: SODIUM CHLORIDE 0.9% FLUSH 10 ML FLUSH IV FLUSH PRN ×2 (02:14→06:07)
[2017-01-11] MEDS: MORPHINE SULFATE 2 MG/ML INJ IV PUSH SCH ×3 (02:14→10:25)
== END 2017-01-11 16:00 | disposition expired | DRG 871 ==
LOC: NEPE 06:01 → NEDA 09:05 → N04B 11:50 → N03B 16:33 → N04B 01-05 18:20
PROVIDERS: ADMIT Family Medicine; ATTEND Family Medicine
PROC: 5A09357 Assistance with Respiratory Ventilation, Less than 24 Consecutive Hours, Continuous Positive Airway Pressure (ICD-10-PCS; principal; 2017-01-04)
DX: A41.9 Sepsis, unspecified organism (principal); G93.40 Encephalopathy, unspecified; I50.23 Acute on chronic systolic (congestive) heart failure; N17.9 Acute kidney failure, unspecified; L89.152 Pressure ulcer of sacral region, stage 2; E87.4 Mixed disorder of acid-base balance; I13.0 Hypertensive heart and chronic kidney disease with heart failure and stage 1 through stage 4 chronic kidney disease, or unspecified chronic kidney disease; I25.110 Atherosclerotic heart disease of native coronary artery with unstable angina pectoris; G82.20 Paraplegia, unspecified; I47.1 Supraventricular tachycardia; N18.5 Chronic kidney disease, stage 5; Z68.42 Body mass index [BMI] 45.0-49.9, adult; N30.00 Acute cystitis without hematuria; L97.429 Non-pressure chronic ulcer of left heel and midfoot with unspecified severity; E66.01 Morbid (severe) obesity due to excess calories; M19.90 Unspecified osteoarthritis, unspecified site; D64.9 Anemia, unspecified; E78.5 Hyperlipidemia, unspecified; G47.33 Obstructive sleep apnea (adult) (pediatric); I49.3 Ventricular premature depolarization; R65.20 Severe sepsis without septic shock; R06.03 Acute respiratory distress; Z51.5 Encounter for palliative care; Z66 Do not resuscitate; Z87.891 Personal history of nicotine dependence; Z89.431 Acquired absence of right foot; I25.2 Old myocardial infarction; Z90.5 Acquired absence of kidney; Z93.3 Colostomy status; Z95.5 Presence of coronary angioplasty implant and graft; Z95.1 Presence of aortocoronary bypass graft
CPT/HCPCS: 36600; 70450; 71010; 80053; 81001; 82140; 82550; 82728; 82805; 83540; 83550; 83605; 84100; 84484; 85007; 85025; 85027; 85610; 85730; 87040; 87077; 87086; 87186; 93005; 94002; 94003; 94640; 94664; 96361; 96365; J0692; J0696; J1644; J1940; J1980; J2060; J2250; J2260; J2270; J3370; J7030; J7050